=== PATIENT | female | born 1975 | race Caucasian/White ===

== ENCOUNTER 2020-02-24 13:03 | Emergency (ER) | payer MEDICARE, SELFPAY ==
--- NOTE | ~2020-02-24 | CT_ITS ---
EXAMINATION: CT abdomen pelvis w con DATE: 02/24/2020 16:34 INDICATION: Vomiting and severe abdominal pain TECHNIQUE: Computed tomography (CT) of the abdomen and pelvis was performed with 100 cc Omnipaque 350 intravenous contrast. The dose-length product was 222.97 mGy-cm. Automated exposure control and iter ative reconstruction technique were employed. COMPARISON: None. FINDINGS: Lung bases are unremarkable. No significant pleural or pericardial effusion. There is ather osclerosis of the aorta. No lymphadenopathy. The liver, spleen, adrenal glands are unremarkable. There is pancreatic atrophy. There is a vascular exophytic right renal mass measuring 1.4 cm, compatible with renal cell carcinoma until proven otherw ise. There are probable nonobstructing renal stones. There is a transplanted right kidney. Nonobstruc tive bowel gas pattern. Bladder is unremarkable. No abnormal pelvic masses or fluid collections. No f ree air or free fluid. No lymphadenopathy. No osteolytic or osteoblastic lesions. IMPRESSION: 1. Exophytic 1.4 cm right renal mass, compatible with renal cell carcinoma until proven otherwise. 2: Probable nonobstructing bilateral nephrolithiasis. 3: Bilateral lovelock renal atrophy. Transplanted right lower abdominal kidney. Reviewed, dictated and finalized at location [facility]. IMPRESSION: 1. Exophytic 1.4 cm right renal mass, compatible with renal cell carcinoma unti l proven otherwise. 2: Probable nonobstructing bilateral nephrolithiasis. 3: Bilateral lovelock renal atrophy. Transplanted right lower abdominal kidney.
[2020-02-24 13:06] VITALS: BP 162/90; PULSE 90; RESP 18; TEMP 36.5; O2SAT 100
--- NOTE | 2020-02-24 13:45 | ED.NAVMDI ---
HPI - Nausea/Vomiting/Diarrhea General Chief complaint: Nausea/Vomiting/Diarrhea Stated complaint: n/v/d Time Seen by Provider: 02/24/20 13:24 History of Present Illness HPI Narrative: Patient presents with nausea vomiting diarrhea and abdominal pain. She says abdominal pain is 10 out of 10. The pain goes to her back. She is a kidney transplant patient from last year she had a transplant at [facility]. She is thrown up at least 20 times, and had diarrhea at least 20 times. There is been no blood in the diarrhea. She denies fever, but she is actively chilling on the bedside commode. MD elicited complaint: nausea, vomiting, diarrhea and abdominal pain Pertinent past history: other (Kidney transplant) Onset (ago): hour(s) Associated nausea: Yes Associated abdominal pain: Yes Location of pain: diffuse Radiation: other (Back) Pain consistency: constant Severity: severe Relieving factors: none Associated symptoms: nausea/vomiting Related Data Allergies Allergy/AdvReac Type Severity Reaction Status Date / Time cyclobenzaprine Allergy Unknown Hives / Verified 02/24/20 15:02 Red Face tetracycline Allergy Unknown Nausea and Verified 02/24/20 15:02 Vomiting Review of Systems Review of Systems: Narrative: CONSTITUTIONAL: Denies fever, but has chills, and sweats. EYES: Denies visual changes, redness, or discharge. ENT: Denies rhinorrhea, congestion, sore throat, or otalgia. CARDIOVASCULAR: Denies chest pain, palpitations, or edema. RESPIRATORY: Denies cough or dyspnea. GASTROINTESTINAL: She has abdominal pain, nausea, vomiting, and diarrhea. GENITOURINARY: Denies dysuria or hematuria. SKIN: Denies rash or itching. MUSCULOSKELETAL: She had back pain, but not joint pain, or myalgia. NEUROLOGIC: Denies headache, numbness, or weakness. . All systems reviewed & are unremarkable except as noted in HPI and below PMFSH Surgical History Surgical History (Updated 02/24/20 @ 16:59 by Kristyn Lockett MD) History of kidney transplant Social History Social History Gender identity (if verbalized by the patient): Male Exam Narrative: Exam Narrative: GENERAL: Cachectic, chilling, very thin woman in moderate distress. HEAD: Normocephalic, atraumatic. EYES: PERRLA and EOMI. ENT: Nares clear, no rhinorrhea or epistaxis. Mucous membranes moist. NECK: Supple. CHEST: Clear to auscultation. No respiratory distress. HEART: Regular rate and rhythm. No murmur heard. Normal peripheral pulses. ABDOMEN: Soft, nontender, nondistended, normal active bowel sounds. EXTREMITIES: Normal range of motion. No edema. SKIN: Warm, dry, no rash. NEURO: No focal deficits. Alert and oriented x3. PSYCH: Very upset. Course Reevaluation(s) Reevaluation #1: Went back into check on the patient, she is feeling a little bit better the pain is down to 7 out of 10. She took the morphine well. Tried to take the morphine out of her allergy list but I could not do it may be the nurse can. We will order another dose of the morphine. She asked also for more nausea medicine, and I told her I am ordering a CAT scan for the severe pain. She was able to take her antirejection medicine this morning and did not throw it up. Date: 02/24/20 Time: 14:50 Reevaluation #2: CAT scan results came back with a possible renal cell carcinoma on 1 of the [place] kidneys. She needs to get this information back to her kidney transplant doctors and get a thorough evaluation at [facility]. Her symptoms of the vomiting and diarrhea and abdominal pain have totally subsided. She said she has had this twice before. She is feeling better now and she would like a prescription for the Reglan. Date: 02/24/20 Time: 17:01 Vital Signs Vital signs: Vital Signs Temperature 97.7 F 02/24/20 13:06 Pulse Rate 90 02/24/20 13:06 Respiratory Rate 18 02/24/20 13:06 Blood Pressure 162/90 H 02/24/20 13:06 Pulse Oximetry 100 02/24/20 13:06 Temperature 97.7 F 02/24/20 13:06 Pulse Rate 90
[2020-02-24] MEDS: SODIUM CHLORIDE 0.9% IV 1,000 ML 999 ML IV CONT ×2 (13:54→15:03)
[2020-02-24] MEDS: ONDANSETRON INJ 4 MG/2 ML VIAL IV PUSH (13:55)
[2020-02-24] MEDS: MORPHINE SULFATE 4 MG/ML INJ IV PUSH ×2 (14:07→15:03)
[2020-02-24] MEDS: METOCLOPRAMIDE HCL INJ 10 MG/2 ML VIAL IV PUSH (15:03)
[2020-02-24 15:16] LABS: Basophils Absolute Auto 0.1 K/mm3 (0.0-0.1); Basophils Percent Auto 0.7 % (0.2-1.2); Eosinophils Absolute Auto 0.1 K/mm3 (0-0.3); Eosinophils Percent Auto 0.4 % (0-4.4); Hematocrit 45.5 % (37.0-47.0); Hemoglobin 15.9 g/dL (12.0-15.0); Immature Granulocyte Absolute 0.09 K/mm3 (0.00-0.031); Immature Granulocyte Percent A 0.6 % (0-0.5); Lymphocytes Absolute Auto 0.96 K/mm3 (0.9-3.2); Lymphocytes Percent Auto 6.5 % (18.3-44.2); Mean Corpuscular HGB Conc 34.9 g/dl (32-36); Mean Corpuscular Hemoglobin 35.2 pg (26-34); Mean Corpuscular Volume 100.7 fl (80-100); Mean Platelet Volume 11.3 fl (7.4-10.4); Monocytes Absolute Auto 0.9 K/mm3 (0.1-0.6); Monocytes Percent Auto 6.3 % (2.6-8.5); Neutrophils Absolute Auto 12.6 K/mm3 (1.3-6.7); Neutrophils Percent Auto 85.5 % (45.5-73.1); Platelet Count Result 218 k/mm3 (150-375); Red Blood Count 4.52 M/mm3 (4.2-5.4); Red Cell Distribution Width 12.5 % (11.5-14.5); White Blood Count 14.7 K/mm3 (4.5-10.0)
[2020-02-24 15:27] LABS: Lactic Acid Reflex 1.2 mmol/L (0.7-2.1)
[2020-02-24 15:28] LABS: Alanine Aminotransferase 11 U/L (4-35); Albumin Level 4.6 g/dL (3.5-5.1); Alkaline Phosphatase 53 U/L (38-126); Anion Gap 13.4 mmol/L (7-16); Aspartate Amino Transferase 20 U/L (14-36); Blood Urea Nitrogen 17 mg/dL (7-17); Calcium 9.8 mg/dL (8.4-10.2); Carbon Dioxide 27 mmol/L (22-30); Chloride 101 mmol/L (98-107); Estimated CRCL calculation 64 ml/min; Estimated Glomerular Filt Rate > 60; Glucose 287 mg/dL (65-105); Potassium 3.4 mmol/L (3.4-5.0); Sodium 138 mmol/L (137-145)
[2020-02-24 15:48] LABS: Lipase < 10 U/L (23-300)
[2020-02-24 16:40] LABS: Add Urine Microscopic? YES; Appearance Urine Clear (Clear); Bacteria Urine Trace /hpf; Bilirubin Urine Negative (Negative); Blood Urine Negative (Negative); Color Urine Colorless (Yellow); Glucose Urine UA 3+ mg/dL (Negative); Ketones Urine Trace mg/dL (Negative); Leukocyte Esterase Ur Negative LEU/UL (Negative); Nitrate Urine Negative (Negative); Protein Urine Negative (Negative); RBC Urine 0-2 /hpf (0-2); Specific Grav Ur 1.009 (1.001-1.035); Squamous Epithelial Cell Urine Moderate /hpf (Few); Urobilinogen Urine Negative mg/dL (<2.0)
[2020-02-24 17:54] VITALS: BP 132/76; PULSE 95; RESP 18; O2SAT 100
== END 2020-02-24 17:55 | disposition home or self-care (01) ==
PROVIDERS: Emergency Provider Emergency Medicine; PCP Internal Medicine
DX: K52.9 Noninfective gastroenteritis and colitis, unspecified (principal); Z94.0 Kidney transplant status
CPT/HCPCS: 36415; 74177; 80053; 81001; 81025; 83605; 83690; 85025; 87040; 96361; 96374; 96375; 96376; 99284; J2270; J2405; J2765; J7030; Q9967

== ENCOUNTER 2020-02-26 08:56 | Emergency (ER) | payer MEDICARE, SELFPAY ==
[2020-02-26 09:01] VITALS: BP 159/96; PULSE 86; RESP 16; TEMP 35.9; O2SAT 100
[2020-02-26 09:11] LABS: Glucose Point of Care 238 (65-105)
--- NOTE | 2020-02-26 09:14 | ED.NAVMDI ---
HPI - Nausea/Vomiting/Diarrhea General Chief complaint: Nausea/Vomiting/Diarrhea Stated complaint: vomiting Time Seen by Provider: 02/26/20 09:11 History of Present Illness HPI Narrative: Nausea and vomiting since this morning. Associated with lower abdominal pain. The pain is severe and intermittent. No radiation. She was seen here [address] and labs were essentially unremarakable at that time. She was diagnosed with gastroenteritis and discharged with reglan. She has a h/o renal transplant. Related Data Allergies Allergy/AdvReac Type Severity Reaction Status Date / Time cyclobenzaprine Allergy Unknown Hives / Verified 02/26/20 09:19 Red Face tetracycline Allergy Unknown Nausea and Verified 02/26/20 09:19 Vomiting Review of Systems Review of Systems: All systems reviewed & are unremarkable except as noted in HPI and below Constitutional: Constitutional: Denies fever(s) Cardiovascular: Cardiovascular: Denies chest pain Respiratory: Respiratory: Denies dyspnea Gastrointestinal: Gastrointestinal: Reports abdominal pain, Reports diarrhea, Reports nausea and Reports vomiting Genitourinary: Genitourinary: Denies hematuria and Denies dysuria Neurologic: Denies dizziness and Denies weakness [facility] Past Medical History Medical History (Updated 02/26/20 @ 13:37 by Juan Antonio Acosta MD) Diabetes mellitus Surgical History Surgical History (Updated 02/26/20 @ 13:37 by Juan Antonio Acosta MD) History of kidney transplant Kidney transplant recipient Social History Social History Gender identity (if verbalized by the patient): Female Exam Const: General: healthy appearing, no acute distress and alert Orientation/consciousness: patient oriented x3 HENMT: Head: normal to inspection Neck: Neck: normal visual inspection and no lymphadenopathy Chest: Chest palpation & inspection: no tenderness Resp: Effort & Inspection: normal respiratory effort Auscultation: clear to auscultation bilaterally, no rales, no rhonchi and no wheezes Cardio: Jugular venous distension: no JVD Rate: regular rate Rhythm: regular rhythm Heart sounds: no murmurs GI: Inspection: non-distended GI Palp: Yes Soft to palpation and Yes Tenderness to palpation present (GI) (suprapubic) Skin: General skin exam: normal color Neuro: General: patient oriented x3 and moves all extremities Speech: normal speech Extrem: General: no edema Psych: Appearance: well kempt Affect: normal affect Course Vital Signs Vital signs: Vital Signs Temperature 35.9 C L 02/26/20 09:01 Pulse Rate 86 02/26/20 09:01 Respiratory Rate 16 02/26/20 09:01 Blood Pressure 159/96 H 02/26/20 09:01 Pulse Oximetry 100 02/26/20 09:01 Temperature 35.9 C L 02/26/20 09:01 Pulse Rate 90 02/26/20 11:35 Respiratory Rate 14 02/26/20 11:35 Blood Pressure 154/84 H 02/26/20 11:35 Pulse Oximetry 100 02/26/20 11:35 MDM - Nausea/Vomiting/Diarrhea MDM Narrative Medical decision making narrative: Labs essential normal. I d not believe that a repeat CT is warranted at this point. Renal function is good, no rejection. Medical Records Attestation: I reviewed the patient's medical records. Lab Data Attestation: I reviewed the patient's lab results. Result diagrams: 02/26/20 09:16 02/26/20 09:16 Labs: Lab Results 02/26/20 02/26/20 02/26/20 Range/Units 09:09 09:16 09:16 WBC 9.4 (4.5-10.0) K/mm3 RBC 4.45 (4.2-5.4) M/mm3 Hgb 15.9 H (12.0-15.0) g/dL Hct 45.3 (37.0-47.0) % MCV 101.8 H (80-100) fl MCH 35.7 H (26-34) pg MCHC 35.1 (32-36) g/dl RDW 12.5 (11.5-14.5) % Plt Count 220 (150-375) k/mm3 MPV 10.4 (7.4-10.4) fl Immature Gran % (Auto) 0.3 (0-0.5) % Neut % (Auto) 74.1 H (45.5-73.1) % Lymph % (Auto) 17.1 L (18.3-44.2) % [place] % (Auto) 6.8 (2.6-8.5) % Eos % (Auto) 1.3
[2020-02-26 09:25] LABS: Basophils Percent Auto 0.4 % (0.2-1.2); Eosinophils Absolute Auto 0.1 K/mm3 (0-0.3); Eosinophils Percent Auto 1.3 % (0-4.4); Hematocrit 45.3 % (37.0-47.0); Hemoglobin 15.9 g/dL (12.0-15.0); Immature Granulocyte Absolute 0.03 K/mm3 (0.00-0.031); Immature Granulocyte Percent A 0.3 % (0-0.5); Lymphocytes Percent Auto 17.1 % (18.3-44.2); Mean Corpuscular HGB Conc 35.1 g/dl (32-36); Mean Corpuscular Hemoglobin 35.7 pg (26-34); Mean Corpuscular Volume 101.8 fl (80-100); Mean Platelet Volume 10.4 fl (7.4-10.4); Monocytes Absolute Auto 0.6 K/mm3 (0.1-0.6); Monocytes Percent Auto 6.8 % (2.6-8.5); Neutrophils Percent Auto 74.1 % (45.5-73.1); Platelet Count Result 220 k/mm3 (150-375); Red Blood Count 4.45 M/mm3 (4.2-5.4); Red Cell Distribution Width 12.5 % (11.5-14.5); White Blood Count 9.4 K/mm3 (4.5-10.0)
[2020-02-26 09:29] VITALS: BP 195/83; PULSE 86; RESP 17; O2SAT 98
[2020-02-26] MEDS: ONDANSETRON INJ 4 MG/2 ML VIAL IV PUSH (09:33)
[2020-02-26] MEDS: SODIUM CHLORIDE 0.9% IV 2,000 ML 999 ML IV CONT (09:33)
[2020-02-26 09:35] LABS: Alanine Aminotransferase 10 U/L (4-35); Albumin Level 4.8 g/dL (3.5-5.1); Alkaline Phosphatase 56 U/L (38-126); Anion Gap 14.2 mmol/L (7-16); Aspartate Amino Transferase 21 U/L (14-36); Bilirubin,Total 0.7 mg/dL (0.2-1.3); Blood Urea Nitrogen 11 mg/dL (7-17); Calcium 9.8 mg/dL (8.4-10.2); Carbon Dioxide 28 mmol/L (22-30); Chloride 97 mmol/L (98-107); Estimated CRCL calculation 51 ml/min; Estimated Glomerular Filt Rate > 60; Glucose 235 mg/dL (65-105); Potassium 3.2 mmol/L (3.4-5.0); Sodium 136 mmol/L (137-145)
[2020-02-26 09:39] LABS: Lipase < 10 U/L (23-300)
[2020-02-26 09:52] LABS: Beta HCG Quantitative < 2.39 mIU/ML
[2020-02-26] MEDS: METOCLOPRAMIDE HCL INJ 10 MG/2 ML VIAL IV PUSH (10:03)
--- NOTE | 2020-02-26 10:04 | PC.NURSE ---
EDP aware pt requesting pain medication, states last time here was given morphine, and it helped alot , no new orders at this time.
[2020-02-26 10:05] VITALS: BP 161/107; PULSE 104; RESP 21; O2SAT 100
[2020-02-26 10:12] LABS: Add Urine Microscopic? YES; Appearance Urine Clear (Clear); Bilirubin Urine Negative (Negative); Blood Urine Negative (Negative); Color Urine Straw (Yellow); Glucose Urine UA 3+ mg/dL (Negative); Ketones Urine Trace mg/dL (Negative); Leukocyte Esterase Ur Negative LEU/UL (Negative); Nitrate Urine Negative (Negative); Protein Urine Negative (Negative); RBC Urine 0-2 /hpf (0-2); Specific Grav Ur 1.012 (1.001-1.035); Squamous Epithelial Cell Urine Occasional /hpf (Few); Urobilinogen Urine Negative mg/dL (<2.0)
[2020-02-26] MEDS: DICYCLOMINE HCL INJ 20 MG/2 ML VIAL IM (10:57)
[2020-02-26] MEDS: HALOPERIDOL LACTATE 5 MG/ML VIAL IV PUSH (11:30)
[2020-02-26 11:35] VITALS: BP 154/84; PULSE 90; RESP 14; O2SAT 100
== END 2020-02-26 12:20 | disposition home or self-care (01) ==
PROVIDERS: Emergency Provider Emergency Medicine; PCP Internal Medicine
DX: R11.2 Nausea with vomiting, unspecified (principal); Z94.0 Kidney transplant status; E11.9 Type 2 diabetes mellitus without complications
CPT/HCPCS: 36415; 80053; 81001; 82948; 83690; 84702; 85025; 96361; 96372; 96374; 96375; 99284; J0500; J1630; J2405; J2765; J7030

== ENCOUNTER 2020-04-15 11:51 | Emergency (ER) | payer MEDICARE, SELFPAY ==
[2020-04-15 11:59] VITALS: BP 195/96; PULSE 88; RESP 18; TEMP 36.9; O2SAT 100
[2020-04-15 12:38] LABS: Basophils Absolute Auto 0.1 K/mm3 (0.0-0.1); Basophils Percent Auto 0.7 % (0.2-1.2); Eosinophils Absolute Auto 0.1 K/mm3 (0-0.3); Eosinophils Percent Auto 1.3 % (0-4.4); Hematocrit 41.9 % (37.0-47.0); Hemoglobin 14.1 g/dL (12.0-15.0); Immature Granulocyte Absolute 0.07 K/mm3 (0.00-0.031); Immature Granulocyte Percent A 0.7 % (0-0.5); Lymphocytes Absolute Auto 0.81 K/mm3 (0.9-3.2); Lymphocytes Percent Auto 7.6 % (18.3-44.2); Mean Corpuscular HGB Conc 33.7 g/dl (32-36); Mean Corpuscular Hemoglobin 34.1 pg (26-34); Mean Corpuscular Volume 101.2 fl (80-100); Mean Platelet Volume 10.1 fl (7.4-10.4); Monocytes Absolute Auto 0.7 K/mm3 (0.1-0.6); Monocytes Percent Auto 6.6 % (2.6-8.5); Neutrophils Absolute Auto 8.9 K/mm3 (1.3-6.7); Neutrophils Percent Auto 83.1 % (45.5-73.1); Platelet Count Result 338 k/mm3 (150-375); Red Blood Count 4.14 M/mm3 (4.2-5.4); Red Cell Distribution Width 12.2 % (11.5-14.5); White Blood Count 10.7 K/mm3 (4.5-10.0)
[2020-04-15 12:43] LABS: Add Urine Microscopic? YES; Amorphous Sediment Urine Moderate; Appearance Urine Cloudy (Clear); Bilirubin Urine Negative (Negative); Blood Urine Negative (Negative); Color Urine Yellow (Yellow); Glucose Urine UA 3+ mg/dL (Negative); Ketones Urine Negative (Negative); Leukocyte Esterase Ur Negative LEU/UL (Negative); Nitrate Urine Negative (Negative); Protein Urine Negative (Negative); Squamous Epithelial Cell Urine Rare /hpf (Few); Urobilinogen Urine Negative mg/dL (<2.0)
[2020-04-15 12:52] LABS: Alanine Aminotransferase 9 U/L (4-35); Albumin Level 4.4 g/dL (3.5-5.1); Alkaline Phosphatase 54 U/L (38-126); Anion Gap 8 mmol/L (8-16); Aspartate Amino Transferase 19 U/L (14-36); Bilirubin,Total 0.6 mg/dL (0.2-1.3); Blood Urea Nitrogen 13 mg/dL (7-17); Calcium 9.6 mg/dL (8.4-10.2); Carbon Dioxide 33 mmol/L (22-30); Chloride 95 mmol/L (98-107); Estimated CRCL calculation 66 ml/min; Estimated Glomerular Filt Rate > 60; Glucose 274 mg/dL (65-105); Potassium 3.6 mmol/L (3.4-5.0); Sodium 136 mmol/L (137-145)
[2020-04-15 12:54] LABS: Lipase < 10 U/L (23-300)
--- NOTE | 2020-04-15 12:56 | ED.NAVMDI ---
HPI - Nausea/Vomiting/Diarrhea General Chief complaint: Nausea/Vomiting/Diarrhea Stated complaint: vomiting/high blood pressure Time Seen by Provider: 04/15/20 12:28 Source: patient and family Limitations: no limitations History of Present Illness HPI Narrative: 45-year-old female She had a kidney transplant at [facility] about a year ago She had a robotic nephrectomy at [facility] about a week ago She has a history of diabetes and gastroparesis She takes omeprazole and Reglan and gabapentin for gastroparesis and neuropathy She has a medical marijuana card and partakes about twice a week Today she started having nausea and vomiting nonbloody material similar to episodes which she has experienced previously There was also one episode of diarrhea which was nonbloody Her blood sugar was approximately 213, she took her long-acting insulin last night but did not take any short acting insulin today She likewise notes that she has been unable to hold down her meds including her antirejection meds, and, the tramadol which has been making her postoperative pain tolerable Lastly she has had a little bit of oozing from 1 of her port sites MD elicited complaint: nausea, vomiting and diarrhea Pertinent past history: abdominal surgery Onset (ago): hour(s) Description of diarrhea: watery Location of pain: diffuse Quality: aching Relieving factors: none Related Data Allergies Allergy/AdvReac Type Severity Reaction Status Date / Time cyclobenzaprine Allergy Unknown Hives / Verified 04/15/20 13:29 Red Face tetracycline Allergy Unknown Nausea and Verified 04/15/20 13:29 Vomiting acetaminophen [From Tylenol] Allergy Nausea and Verified 04/15/20 13:29 Vomiting Review of Systems Review of Systems: All systems reviewed & are unremarkable except as noted in HPI and below Constitutional: Constitutional: Denies chills, Reports fatigue, Denies fever(s), Denies headache(s) and Denies night sweats Eyes: Eyes: Denies change in vision, Denies loss of vision and Denies other visual disturbances ENT: Denies headache(s), Denies hoarseness, Denies nasal congestion and Denies sore throat Cardiovascular: Cardiovascular: Denies chest pain, Denies leg edema, Denies palpitations and Denies dyspnea Respiratory: Respiratory: Denies cough, Denies dyspnea and Denies wheezing Gastrointestinal: Gastrointestinal: Reports abdominal pain, Reports diarrhea, Reports nausea and Reports vomiting Genitourinary: Genitourinary: Denies hematuria, Denies urinary frequency, Denies nocturia and Denies dysuria Musculoskeletal: Musculoskeletal: Denies abnormal gait, Denies deformity, Denies joint swelling, Reports muscle cramps, Denies muscle weakness and Denies numbness Integumentary/Breasts: Skin/Breast: Denies rash, Denies unusual bruising and Denies wounds Neurologic: Denies abnormal gait, Denies headache(s), Denies focal weakness, Denies loss of vision and Denies numbness Psychiatric: Psychiatric: Reports no additional psychiatric complaints Endocrine: Endocrine: Denies fatigue and Denies palpitations Hematologic/Lymphatic: Hematologic/Lymphatic: Denies easy bleeding and Denies easy bruising Allergic/Immunologic: Allergic/Immunologic: Denies wheezing PMFSH Past Medical History Medical History (Updated 04/15/20 @ 15:53 by Hill Kraft MD) Diabetes mellitus Surgical History Surgical History (Updated 04/15/20 @ 15:53 by Hill Kraft MD) History of kidney transplant Kidney transplant recipient Social History Social History Gender identity (if verbalized by the patient): Female Sexual Orientation (if Verbalized by the Patient): Straight or Heterosexual Exam Const: General: well developed and ill appearing Orientation/consciousness: patient oriented x3 (alert) and Other orientation findings (Alert) Limitations: no limitations HENMT: Head: normocephalic and atraumatic Ears
[2020-04-15] MEDS: METOCLOPRAMIDE HCL INJ 10 MG/2 ML VIAL IV PUSH (13:22)
[2020-04-15] MEDS: LACTATED RINGERS 1,000 ML 999 ML IV CONT (13:22)
[2020-04-15] MEDS: diphenhydrAMINE HCl INJ 50 MG/ML VIAL IV PUSH (13:24)
[2020-04-15 13:32] LABS: Alveolar/Arterial O2 Gradient 14.7 mmHg; Base Excess ABG 3.3 mEq/l (+/-2.0); Carboxyhemoglobin 3.8 % THb (0-2.0); Fractional Inspired Oxygen 21 %; HCO3 ABG 26.6 mEq/l (22.0-26.0); Methemoglobin ABG 0.3 %THb (0-1.5); Oxygen Content ABG 17.1 %vol (16.0-22.0); Oxygen Saturation ABG 97.5 % (95.0-100.0); Oxyhemoglobin 92.3 % THb (90.0-100.0); PCO2 ABG 36.3 mmHg (35.0-45.0); PO2 ABG 91.6 mmHg (80.0-100.0); PO2 FiO2 Ratio Arterial Blood 4.36 %; Reduced Hemoglobin 3.6 %THb (0-5.0); Total Hemoglobin 13.1 g/dL (12.0-18.0); pH ABG 7.483 (7.350-7.450)
[2020-04-15 13:33] LABS: Device ROOM AIR; Site Drawn LEFT BRACHIAL
[2020-04-15] MEDS: HYDROCORTISONE SODIUM SUCCINATE 100 MG/2 ML VIAL IV PUSH (14:31)
[2020-04-15] MEDS: oxyCODONE HCL (*CRX) 5 MG TAB IR PO (14:33)
--- NOTE | 2020-04-15 14:36 | PC.NURSE ---
This RN into room to give pt insulin. Pt refused
[2020-04-15 14:42] VITALS: BP 206/105; PULSE 81; RESP 20; TEMP 37.1; O2SAT 100
[2020-04-15 15:20] LABS: Valproic Acid 49.6 ug/mL (50-120)
[2020-04-15] MEDS: amLODIPine BESYLATE 5 MG TABLET 10 MG PO (16:22)
[2020-04-15] MEDS: BISMUTH SUBSALICYLATE 262 MG CHEWABLE TABLET 524 MG PO (16:23)
--- NOTE | 2020-04-15 16:40 | PC.NURSE ---
Pt declined blood draw for Tacrolimus. Dr. Kraft informed of this.
--- NOTE | 2020-04-15 16:43 | PC.NURSE ---
Pt refused to look at or sign discharge paperwork. Pt states I am blind as she is walking to bathroom. This RN gave instructions to and paperwork.
== END 2020-04-15 16:43 | disposition home or self-care (01) ==
PROVIDERS: Emergency Provider Emergency Medicine; PCP Internal Medicine
DX: R11.2 Nausea with vomiting, unspecified (principal); R19.7 Diarrhea, unspecified; I10 Essential (primary) hypertension; Z94.0 Kidney transplant status; E11.43 Type 2 diabetes mellitus with diabetic autonomic (poly)neuropathy; K31.84 Gastroparesis; E11.40 Type 2 diabetes mellitus with diabetic neuropathy, unspecified; Z79.4 Long term (current) use of insulin
CPT/HCPCS: 36415; 36600; 80053; 80164; 81001; 82375; 82533; 82805; 83050; 83690; 85025; 96361; 96374; 96375; 99284; A9270; J1200; J1720; J2765; J7120

== ENCOUNTER 2023-12-20 15:38 | Emergency (ER) | payer MEDICARE, SELFPAY ==
[2023-12-20] VITALS (8 sets, daily range): BP systolic 103–180; BP diastolic 65–94; PULSE 83–102; RESP 13–18; TEMP 36.3; O2SAT 97–100
[2023-12-20 16:46] LABS: Basophils Absolute Auto 0.1 K/mm3 (0.0-0.1); Basophils Percent Auto 0.5 % (0.2-1.2); Eosinophils Percent Auto 0.4 % (0-4.4); Hematocrit 49.7 % (37.0-47.0); Hemoglobin 16.6 g/dL (12.0-15.0); Immature Granulocyte Absolute 0.05 K/mm3 (0.00-0.031); Immature Granulocyte Percent A 0.5 % (0-0.5); Lymphocytes Absolute Auto 1.38 K/mm3 (0.9-3.2); Lymphocytes Percent Auto 13.9 % (18.3-44.2); Mean Corpuscular HGB Conc 33.4 g/dl (32-36); Mean Corpuscular Hemoglobin 32.7 pg (26-34); Mean Corpuscular Volume 97.8 fl (80-100); Mean Platelet Volume 10.2 fl (7.4-10.4); Monocytes Absolute Auto 0.5 K/mm3 (0.1-0.6); Monocytes Percent Auto 5.1 % (2.6-8.5); Neutrophils Absolute Auto 7.9 K/mm3 (1.3-6.7); Neutrophils Percent Auto 79.6 % (45.5-73.1); Platelet Count Result 182 k/mm3 (150-375); Red Blood Count 5.08 M/mm3 (4.2-5.4); Red Cell Distribution Width 13.1 % (11.5-14.5); White Blood Count 9.9 K/mm3 (4.5-10.0)
[2023-12-20 16:57] LABS: Alanine Aminotransferase 12 U/L (6-35); Alkaline Phosphatase 71 U/L (38-126); Anion Gap 18 mmol/L (4-12); Aspartate Amino Transferase 27 U/L (14-36); Bilirubin,Total 1.1 mg/dL (0.2-1.3); Blood Urea Nitrogen 15 mg/dL (7-17); Calcium 9.6 mg/dL (8.4-10.2); Carbon Dioxide 22 mmol/L (22-30); Chloride 98 mmol/L (98-107); Estimated CRCL calculation 59 ml/min; Estimated Glomerular Filt Rate > 60; Glucose 224 mg/dL (65-110); Potassium 3.5 mmol/L (3.4-5.0); Sodium 138 mmol/L (137-145)
[2023-12-20 17:19] LABS: Lipase < 10 U/L (23-300)
[2023-12-20] MEDS: HYDROmorphone HCL INJ (*CRX) 1 MG/ML SYR IV PUSH (17:26)
[2023-12-20] MEDS: METOCLOPRAMIDE HCL INJ 10 MG/2 ML VIAL 5 MG IV PUSH (17:26)
[2023-12-20] MEDS: SODIUM CHLORIDE 0.9% IV 1,000 ML 999 ML IV CONT ×2 (17:27→18:21)
--- NOTE | 2023-12-20 18:26 | ED.GENADULT ---
HPI - General Adult General Chief complaint: Nausea/Vomiting/Diarrhea <Dorian Zamora MD - Last Filed: 12/20/23 18:33> Stated complaint: n/v/ <Dorian Zamora MD - Last Filed: 12/20/23 18:33> Time Seen by Provider: 12/20/23 16:43 <Dorian Zamora MD - Last Filed: 12/20/23 18:33> Source: patient <Dorian Zamora MD - Last Filed: 12/20/23 18:33> Mode of arrival: ambulatory <MD Leila White Last Filed: 12/20/23 18:33> Limitations: no limitations <MD Leila White Last Filed: 12/20/23 18:33> History of Present Illness HPI narrative: 48-year-old with a history of diabetes, diabetic gastroparesis, status post renal transplant here with the complaints of nausea, vomiting, lower abdominal pain. Patient states that she has these episodes quite often and she usually gets droperidol and Dilaudid which takes care of the pain and nausea. She denies any fever or chills. She states that she is unable to keep any fluids down. <Dorian Zamora MD - Last Filed: 12/20/23 18:33> Onset (ago): day(s) (1) <Dorian Zamora MD - Last Filed: 12/20/23 18:33> Location: abdomen <MD Leila White Last Filed: 12/20/23 18:33> Severity: moderate <MD Leila White Last Filed: 12/20/23 18:33> Quality: aching <MD Leila White Last Filed: 12/20/23 18:33> Pain Consistency: constant <MD Leila White Last Filed: 12/20/23 18:33> Relieving factors: none <MD Leila White Last Filed: 12/20/23 18:33> Exacerbating factors: none <MD Leila White Last Filed: 12/20/23 18:33> Related Data Home medications: Home Medications Medication Instructions Recorded Confirmed alprazolam 0.25 mg tablet (Xanax) 0.25 mg PO BID 08/30/20 aspirin 81 mg tablet,delayed 81 mg PO DAILY 08/30/20 release (Adult Aspirin Regimen) azathioprine 50 mg tablet 50 mg PO DAILY 08/30/20 metoclopramide HCl 10 mg tablet 10 mg PO Q6H PRN 08/30/20 (Reglan) omeprazole 20 mg capsule,delayed 20 mg PO DAILY 08/30/20 release prednisolone 5 mg tablet 5 mg PO DAILY 08/30/20 tacrolimus 1 mg tablet,extended 1 mg PO DAILY 08/30/20 release 24 hr (Envarsus XR) tramadol 50 mg tablet (Ultram) 50 mg PO Q6H PRN 08/30/20 zolpidem 10 mg tablet (Ambien) 10 mg PO ONCE 08/30/20 <Dorian Zamora MD - Last Filed: 12/20/23 18:33> Allergies/adverse reactions: Allergies Allergy/AdvReac Type Severity Reaction Status Date / Time cyclobenzaprine Allergy Unknown Hives / Verified 10/04/20 13:56 Red Face tetracycline Allergy Unknown Nausea and Verified 10/04/20 13:56 Vomiting acetaminophen [From Tylenol] Allergy Nausea and Verified 10/04/20 13:56 Vomiting morphine AdvReac Itching Verified 12/20/23 15:56 <Dorian Zamora MD - Last Filed: 12/20/23 18:33> Review of Systems Review of Systems: All systems reviewed & are unremarkable except as noted in HPI and below <Dorian Zamora MD - Last Filed: 12/20/23 18:33> Constitutional: Constitutional: Reports no additional constitutional complaints <Dorian Zamora MD - Last Filed: 12/20/23 18:33> Eyes: Eyes: Reports no additional eye complaints <Dorian Zamora MD - Last Filed: 12/20/23 18:33> ENT: Reports system reviewed and no additional complaints, except as documented <Dorian Zamora MD - Last Filed: 12/20/23 18:33> Cardiovascular: Cardiovascular: Reports no additional cardiovascular complaints <Dorian Zamora MD - Last Filed: 12/20/23 18:33> Respiratory: Respiratory: Reports no additional respiratory complaints <Dorian Zamora MD - Last Filed: 12/20/23 18:33> Gastrointestinal: Gastrointestinal: Reports as per HPI <Dorian Zamora MD - Last Filed: 12/20/23 18:33> Musculoskeletal: Musculoskeletal: Reports no additional musculoskeletal complaints <Dorian Zamora MD - Last Filed: 12/20/23 18:33> Neurologic: Reports system reviewed and no additional complaints, except as documented <Dorian
[2023-12-20 19:27] LABS: Anion Gap 12 mmol/L (4-12); Blood Urea Nitrogen 13 mg/dL (7-17); Carbon Dioxide 19 mmol/L (22-30); Chloride 105 mmol/L (98-107); Estimated CRCL calculation 76 ml/min; Estimated Glomerular Filt Rate > 60; Glucose 171 mg/dL (65-110); Potassium 3.6 mmol/L (3.4-5.0); Sodium 136 mmol/L (137-145)
[2023-12-20 19:50] LABS: Appearance Urine Clear (Clear); Bacteria Urine Rare /hpf; Bilirubin Urine Negative (Negative); Blood Urine 2+ (Negative); Color Urine Yellow (Yellow); Glucose Urine UA 3+ mg/dL (Negative); Ketones Urine 4+ mg/dL (Negative); Leukocyte Esterase Ur Negative LEU/UL (Negative); Nitrate Urine Negative (Negative); Non Pathogenic Casts 0-2; Protein Urine 1+ mg/dL (Negative); Specific Grav Ur 1.019 (1.001-1.035); Squamous Epithelial Cell Urine None Seen /hpf (Few); Urobilinogen Urine 0.2 mg/dL (<2.0); WBC Urine 0-5 /hpf (0-3); pH Urine 5.5 (5.0-9.0)
[2023-12-20 19:53] LABS: Add Urine Microscopic? YES
[2023-12-20] MEDS: HALOPERIDOL LACTATE 5 MG/ML VIAL 2.5 MG IM (20:05)
== END 2023-12-20 21:00 | disposition home or self-care (01) ==
PROVIDERS: Family Medicine; Emergency Provider Emergency Medicine; PCP Internal Medicine
DX: R11.2 Nausea with vomiting, unspecified (principal); R10.84 Generalized abdominal pain; E11.43 Type 2 diabetes mellitus with diabetic autonomic (poly)neuropathy; K31.84 Gastroparesis; Z94.0 Kidney transplant status; Z79.82 Long term (current) use of aspirin
CPT/HCPCS: 36415; 80048; 80053; 81001; 83690; 85025; 96361; 96372; 96374; 96375; 99284; J1170; J1630; J2765; J7030

== ENCOUNTER 2023-12-21 10:50 | Emergency (ER) | payer MEDICARE, SELFPAY ==
[2023-12-21] VITALS (7 sets, daily range): BP systolic 144–184; BP diastolic 84–94; PULSE 89–116; RESP 11–21; TEMP 36.6; O2SAT 95–100
--- NOTE | ~2023-12-21 | CT_ITS ---
EXAMINATION: CT abdomen pelvis w con DATE: 12/21/2023 12:09 INDICATION: Generalized abdominal pain. Nausea and vomiting. TECHNIQUE: Computed tomography (CT) of the abdomen and pelvis was performed with 100 mL Omnipaque 350 intravenous contrast. Automated exposure control and iterative reconstruction technique were employe d. The dose-length product was 290.57 mGy-cm. COMPARISON: CT abdomen and pelvis 02/24/2020 FINDINGS: The visualized portions of the lung bases demonstrate mild atelectasis. No pleural effusion . The heart size is normal. No pericardial effusion. The liver, gallbladder, spleen, pancreas, adrena l glands, are normal. There are changes of right nephrectomy. There is moderate atrophy of [place] lef t kidney. There is calcified atherosclerosis of the aorta and many of the other arteries. There is a transplant kidney in right iliac fossa. There is focal atrophy of the inferior aspect of the transpla nt kidney. There is a 4.9 cm cyst in left ovary, likely a follicular cyst. There are no dilated loops of bowel. The appendix is not visualized. There are no pathologically enlarged lymph nodes. There is no free intraperitoneal fluid. There is mild thoracic and lumbar spondylosis. IMPRESSION: 1. 4.9 cm cyst in left ovary, likely a follicular cyst. Reviewed, dictated and finalized at location A.
[2023-12-21] MEDS: SODIUM CHLORIDE 0.9% IV 1,000 ML 999 ML IV CONT ×2 (11:24)
[2023-12-21 11:29] LABS: Basophils Absolute Auto 0.1 K/mm3 (0.0-0.1); Basophils Percent Auto 0.7 % (0.2-1.2); Eosinophils Absolute Auto 0.2 K/mm3 (0-0.3); Eosinophils Percent Auto 1.6 % (0-4.4); Hematocrit 47.3 % (37.0-47.0); Hemoglobin 16.2 g/dL (12.0-15.0); Immature Granulocyte Absolute 0.07 K/mm3 (0.00-0.031); Immature Granulocyte Percent A 0.6 % (0-0.5); Mean Corpuscular HGB Conc 34.2 g/dl (32-36); Mean Corpuscular Hemoglobin 33.5 pg (26-34); Mean Corpuscular Volume 97.9 fl (80-100); Mean Platelet Volume 10.2 fl (7.4-10.4); Monocytes Percent Auto 8.6 % (2.6-8.5); Neutrophils Absolute Auto 8.4 K/mm3 (1.3-6.7); Neutrophils Percent Auto 69.5 % (45.5-73.1); Platelet Count Result 178 k/mm3 (150-375); Red Blood Count 4.83 M/mm3 (4.2-5.4); Red Cell Distribution Width 13.2 % (11.5-14.5); White Blood Count 12.1 K/mm3 (4.5-10.0)
--- NOTE | 2023-12-21 11:35 | ED.ABDPAIN ---
HPI - Abdominal Pain General Chief Complaint: Abdominal Pain Stated Complaint: abdominial pain,NVD Time Seen by Provider: 12/21/23 11:12 History of Present Illness HPI narrative: Patient is a 48-year-old female who presents to the emergency department this morning complaining of generalized abdominal pain worse in the lower abdomen. Patient was seen at our facility yesterday for similar symptoms and was treated with Reglan and Dilaudid as patient is allergic to morphine. Patient states that her symptoms did resolve and she was also given some IV fluids and discharged. Patient states that today she started to have similar symptoms with nausea, vomiting, and diarrhea. Patient states that the diarrhea started today. She denies any fevers or chills at home and denies any additional symptoms or concerns at this time. Related Data Home Medications Medication Instructions Recorded Confirmed alprazolam 0.25 mg tablet (Xanax) 0.25 mg PO BID 08/30/20 aspirin 81 mg tablet,delayed 81 mg PO DAILY 08/30/20 release (Adult Aspirin Regimen) azathioprine 50 mg tablet 50 mg PO DAILY 08/30/20 metoclopramide HCl 10 mg tablet 10 mg PO Q6H PRN 08/30/20 (Reglan) omeprazole 20 mg capsule,delayed 20 mg PO DAILY 08/30/20 release prednisolone 5 mg tablet 5 mg PO DAILY 08/30/20 tacrolimus 1 mg tablet,extended 1 mg PO DAILY 08/30/20 release 24 hr (Envarsus XR) tramadol 50 mg tablet (Ultram) 50 mg PO Q6H PRN 08/30/20 zolpidem 10 mg tablet (Ambien) 10 mg PO ONCE 08/30/20 Allergies Allergy/AdvReac Type Severity Reaction Status Date / Time cyclobenzaprine Allergy Unknown Hives / Verified 12/21/23 11:12 Red Face tetracycline Allergy Unknown Nausea and Verified 12/21/23 11:12 Vomiting acetaminophen [From Tylenol] Allergy Nausea and Verified 12/21/23 11:12 Vomiting morphine AdvReac Itching Verified 12/21/23 11:12 Review of Systems Review of Systems: All systems are reviewed and are negative unless stated otherwise in the HPI. [facility] Past Medical History Medical History Diabetes mellitus Surgical History Surgical History History of kidney transplant Kidney transplant recipient Social History Social History Smoking status: Never smoker Second hand tobacco smoke exposure: No Alcohol intake: never Substance use: never Substance use type: does not use Gender identity (if verbalized by the patient): Female Sexual Orientation (if Verbalized by the Patient): Straight or Heterosexual Exam Narrative: General: Alert, awake, afebrile, in no acute distress. HEENT: PERRL, no rhinorrhea, no post nasal drip, oropharynx clear. Cardiovascular: Regular rate and rhythm, no murmurs, rubs or gallops, no peripheral edema. Respiratory: Clear to auscultation bilaterally, no tachypnea, no wheezing, no rhonchi, no rubs, no respiratory distress. Abdomen: Soft, tenderness to palpation over the suprapubic and bilateral lower quadrants, nondistended, no rebound, no guarding, no peritoneal signs. Musculoskeletal: No joint swelling or deformity, normal muscle tone. Skin: No rashes or petechia, no signs of infection. Neurological: Alert and oriented to person, place, and time. Follows all commands. No focal deficits, speech is clear and fluent. Course Vital Signs Vital signs: Vital Signs Temperature 97.9 F 12/21/23 10:59 Pulse Rate 110 H 12/21/23 10:59 Respiratory Rate 16 12/21/23 10:59 Blood Pressure 184/90 H 12/21/23 10:59 Pulse Oximetry 98 12/21/23 10:59 Temperature 97.9 F 12/21/23 10:59 Pulse Rate 104 H 12/21/23 13:17 Respiratory Rate 18 12/21/23 13:17 Blood Pressure 170/94 H 12/21/23 13:17 Pulse Oximetry 95 12/21/23 13:17 MDM - Abdominal Pain MDM Narrative Medical decision making narrative: The pat
[2023-12-21 11:39] LABS: Alanine Aminotransferase 11 U/L (6-35); Albumin Level 4.6 g/dL (3.5-5.1); Alkaline Phosphatase 64 U/L (38-126); Anion Gap 11 mmol/L (4-12); Aspartate Amino Transferase 25 U/L (14-36); Bilirubin,Total 0.9 mg/dL (0.2-1.3); Blood Urea Nitrogen 10 mg/dL (7-17); Calcium 9.1 mg/dL (8.4-10.2); Carbon Dioxide 24 mmol/L (22-30); Chloride 102 mmol/L (98-107); Estimated CRCL calculation 66 ml/min; Estimated Glomerular Filt Rate > 60; Glucose 247 mg/dL (65-110); Lipase 13 U/L (23-300); Potassium 3.4 mmol/L (3.4-5.0); Sodium 137 mmol/L (137-145)
[2023-12-21] MEDS: HYDROmorphone HCL INJ (*CRX) 1 MG/ML SYR 0.5 MG IV PUSH ×2 (11:51→13:14)
[2023-12-21] MEDS: ONDANSETRON INJ 4 MG/2 ML VIAL IV PUSH (11:51)
[2023-12-21 12:34] LABS: Influenza A QL RT-PCR Negative (Negative); Influenza B QL RT-PCR Negative (Negative); RSV RNA, RT-PCR Negative (Negative); SARS-CoV-2 RNA PCR Negative (Negative)
[2023-12-21] MEDS: METOCLOPRAMIDE HCL INJ 10 MG/2 ML VIAL IV PUSH (13:14)
== END 2023-12-21 14:32 | disposition home or self-care (01) ==
PROVIDERS: Student in an Organized Health Care Education/Training Program; Emergency Provider Emergency Medicine; PCP Internal Medicine
DX: E11.43 Type 2 diabetes mellitus with diabetic autonomic (poly)neuropathy (principal); K31.84 Gastroparesis; R11.2 Nausea with vomiting, unspecified; R19.7 Diarrhea, unspecified; Z20.822 Contact with and (suspected) exposure to COVID-19; Z94.0 Kidney transplant status; Z79.82 Long term (current) use of aspirin; Z79.899 Other long term (current) drug therapy
CPT/HCPCS: 36415; 74177; 80053; 82248; 83690; 85025; 87637; 96361; 96374; 96375; 96376; 99284; J1170; J2405; J2765; J7030; Q9967

== ENCOUNTER 2023-12-22 11:28 | Observation (INO) | payer MEDICARE, SELFPAY ==
[2023-12-22 11:46] VITALS: BP 169/93; PULSE 111; RESP 19; TEMP 36.7; O2SAT 98
[2023-12-22 12:01] LABS: Basophils Absolute Auto 0.1 K/mm3 (0.0-0.1); Basophils Percent Auto 0.8 % (0.2-1.2); Eosinophils Absolute Auto 0.1 K/mm3 (0-0.3); Eosinophils Percent Auto 0.8 % (0-4.4); Hematocrit 50.2 % (37.0-47.0); Hemoglobin 17.1 g/dL (12.0-15.0); Immature Granulocyte Absolute 0.05 K/mm3 (0.00-0.031); Immature Granulocyte Percent A 0.4 % (0-0.5); Lymphocytes Absolute Auto 2.14 K/mm3 (0.9-3.2); Lymphocytes Percent Auto 18.8 % (18.3-44.2); Mean Corpuscular HGB Conc 34.1 g/dl (32-36); Mean Corpuscular Hemoglobin 32.8 pg (26-34); Mean Corpuscular Volume 96.4 fl (80-100); Mean Platelet Volume 9.6 fl (7.4-10.4); Monocytes Absolute Auto 0.8 K/mm3 (0.1-0.6); Monocytes Percent Auto 7.3 % (2.6-8.5); Neutrophils Absolute Auto 8.2 K/mm3 (1.3-6.7); Neutrophils Percent Auto 71.9 % (45.5-73.1); Platelet Count Result 188 k/mm3 (150-375); Red Blood Count 5.21 M/mm3 (4.2-5.4); Red Cell Distribution Width 13.1 % (11.5-14.5); White Blood Count 11.4 K/mm3 (4.5-10.0)
[2023-12-22 12:11] LABS: Alanine Aminotransferase 12 U/L (6-35); Albumin Level 4.7 g/dL (3.5-5.1); Alkaline Phosphatase 65 U/L (38-126); Anion Gap 11 mmol/L (4-12); Aspartate Amino Transferase 27 U/L (14-36); Bilirubin,Total 0.9 mg/dL (0.2-1.3); Blood Urea Nitrogen 8 mg/dL (7-17); Calcium 9.1 mg/dL (8.4-10.2); Carbon Dioxide 25 mmol/L (22-30); Chloride 101 mmol/L (98-107); Estimated CRCL calculation 66 ml/min; Estimated Glomerular Filt Rate > 60; Glucose 270 mg/dL (65-110); Lipase 12 U/L (23-300); Potassium 3.5 mmol/L (3.4-5.0); Sodium 137 mmol/L (137-145)
[2023-12-22 12:16] LABS: Appearance Urine Clear (Clear); Bacteria Urine None Seen /hpf; Bilirubin Urine Negative (Negative); Blood Urine 1+ (Negative); Color Urine Yellow (Yellow); Glucose Urine UA 3+ mg/dL (Negative); Ketones Urine 2+ mg/dL (Negative); Leukocyte Esterase Ur Negative LEU/UL (Negative); Nitrate Urine Negative (Negative); Non Pathogenic Casts 0-2; Protein Urine 1+ mg/dL (Negative); Specific Grav Ur 1.015 (1.001-1.035); Squamous Epithelial Cell Urine None Seen /hpf (Few); Urobilinogen Urine 0.2 mg/dL (<2.0); WBC Urine 0-5 /hpf (0-3); pH Urine 6.5 (5.0-9.0)
[2023-12-22 12:21] LABS: Add Urine Microscopic? YES
--- NOTE | 2023-12-22 13:59 | ED.NAVMDI ---
HPI - Nausea/Vomiting/Diarrhea General Chief complaint: Nausea/Vomiting/Diarrhea Stated complaint: gastroparesis Time Seen by Provider: 12/22/23 11:52 History of Present Illness HPI Narrative: Patient is a 48-year-old female with history of diabetes, gastroparesis, recurrent urinary tract infections currently on multiple antibiotics here with nausea and vomiting and abdominal pain. She notes that this feels very similar to her prior episodes of gastroparesis. She notes that she was doing okay when she left yesterday and seems to do well overnight but worsens again in the morning. This morning she has thrown up several times however does not really have anything in her to throw up and is now just dry heaving. She denies any fever chills. She does have some associated diarrhea which is common for her with gastroparesis. Last upper endoscopy was performed at [facility] not too long ago per patient. She currently is following with the urology team locally here, saw nurse practitioner and is supposed to be on Macrobid. She has been vomiting up her antibiotics at home. She is prescribed Haldol at home for her gastroparesis however due to her excessive vomiting she has been unable to keep the Haldol down and has been vomiting up her medications. Related Data Home Medications Medication Instructions Recorded Confirmed alprazolam 0.25 mg tablet (Xanax) 0.25 mg PO BID 08/30/20 aspirin 81 mg tablet,delayed 81 mg PO DAILY 08/30/20 release (Adult Aspirin Regimen) azathioprine 50 mg tablet 50 mg PO DAILY 08/30/20 metoclopramide HCl 10 mg tablet 10 mg PO Q6H PRN 08/30/20 (Reglan) omeprazole 20 mg capsule,delayed 20 mg PO DAILY 08/30/20 release prednisolone 5 mg tablet 5 mg PO DAILY 08/30/20 tacrolimus 1 mg tablet,extended 1 mg PO DAILY 08/30/20 release 24 hr (Envarsus XR) tramadol 50 mg tablet (Ultram) 50 mg PO Q6H PRN 08/30/20 zolpidem 10 mg tablet (Ambien) 10 mg PO ONCE 08/30/20 Allergies Allergy/AdvReac Type Severity Reaction Status Date / Time cyclobenzaprine Allergy Unknown Hives / Verified 12/21/23 11:12 Red Face tetracycline Allergy Unknown Nausea and Verified 12/21/23 11:12 Vomiting acetaminophen [From Tylenol] Allergy Nausea and Verified 12/21/23 11:12 Vomiting morphine AdvReac Itching Verified 12/21/23 11:12 Review of Systems Review of Systems: All systems reviewed & are unremarkable except as noted in HPI and below PMFSH Past Medical History Medical History Diabetes mellitus Surgical History Surgical History History of kidney transplant Kidney transplant recipient Social History Social History Smoking status: Never smoker Second hand tobacco smoke exposure: No Alcohol intake: never Substance use: never Substance use type: does not use Gender identity (if verbalized by the patient): Female Sexual Orientation (if Verbalized by the Patient): Straight or Heterosexual Exam Narrative: GENERAL: Chronically ill-appearing and in no acute distress. HEAD: Normocephalic, atraumatic. EYES: PERRLA and EOMI. ENT: Nares clear. Mucous membranes moist. NECK: Supple. CHEST: Clear to auscultation. No respiratory distress. HEART: Regular rate and rhythm. Normal peripheral pulses. ABDOMEN: Soft, diffusely tender, no rebound or guarding, nondistended. EXTREMITIES: Normal range of motion. No edema. SKIN: Warm, dry, no rash. NEURO: No focal deficits. Alert and oriented x3. PSYCH: Normal mood and affect. Course Course Emergency Course: By chart review performed, patient here with nausea, vomiting, diarrhea. She is here for the 3rd day in a row. Denies any improvement, keeps vomiting. Triage vitals show hypertension, tachycardia, otherwise unremarkable. Note from yesterday reviewed, patient was here
[2023-12-22] MEDS: METOCLOPRAMIDE HCL INJ 10 MG/2 ML VIAL IV PUSH ×2 (14:18→20:06)
[2023-12-22] MEDS: HYDROmorphone HCL INJ (*CRX) 1 MG/ML SYR 0.5 MG IV PUSH ×3 (14:18→23:11)
[2023-12-22] MEDS: diphenhydrAMINE HCl INJ 50 MG/ML VIAL 25 MG IV PUSH (14:18)
[2023-12-22 14:29] VITALS: BP 187/95; PULSE 112; RESP 19; O2SAT 100
[2023-12-22 14:37] LABS: Glucose Point of Care 264 mg/dl (65-105)
[2023-12-22] MEDS: LACTATED RINGERS 1,000 ML 999 ML IV CONT (14:40)
--- NOTE | 2023-12-22 16:09 | ECG_ITS ---
SEE SCANNED COPY FOR CONFIRMED REPORT MTDD
[2023-12-22 16:24] LABS: Influenza A QL RT-PCR Negative (Negative); Influenza B QL RT-PCR Negative (Negative); RSV RNA, RT-PCR Negative (Negative); SARS-CoV-2 RNA PCR Negative (Negative)
[2023-12-22] MEDS: HALOPERIDOL LACTATE 5 MG/ML VIAL IV PUSH (16:40)
[2023-12-22 19:36] VITALS: BMI 25.2
[2023-12-22] MEDS: LACTATED RINGERS 1,000 ML 100 ML IV CONT (20:05)
--- NOTE | 2023-12-22 20:46 | PM.IMHP ---
H&P: HPI History of Present Illness Date/Time: 12/22/23 19:30 Chief Complaint: Nausea, vomiting, and abdominal pain. Narrative: This is a 48-year-old female with type 1 diabetes mellitus, diabetic nephropathy status post kidney transplant, gastroparesis, chronic obstructive pulmonary disease, hypertension, hyperlipidemia, and anxiety who presented to the emergency department via private vehicle for evaluation of nausea, vomiting, and abdominal pain. The patient provides the following history. The gastroparesis causes her problems on a daily basis with frequent early satiety, nausea, and bloating. It is not unusual for her to have periods of worsening symptoms and this last episode has been ongoing for 3 to 4 days. She reports persistent, diffuse abdominal pain due to bloating with continuous nausea as well as multiple episodes of nonbloody and nonbilious emesis. She has been seen in the ED each day for the last 3 days for these symptoms and with hydration and supportive care she has been feeling well enough to go home. Unfortunately her symptoms returned this morning and she has not been able to hold down any fluids or her medications. She denies fever, chills, sweats, hematemesis, diarrhea, dysuria, and hematuria. She denies cannabis use. No history of peptic ulcers. In the ED: She was afebrile on arrival. Blood pressures have been running in the 160s to 180s systolic. She is tachycardic in the low 100s. Labs were significant for a WBC count of 11.4, hemoglobin 17.1, hematocrit 50.2%, BUN 8, creatinine 0.70, glucose 270. Urine was positive for 1+ protein, 3+ glucose, and 2+ ketones. CT of the abdomen and pelvis done yesterday showed a 4.9 cm cyst in left ovary, likely a follicular cyst. Repeat imaging was not repeated today. She is being admitted in this setting for supportive care. Review of Systems Review of Systems: 12 systems were reviewed and are negative except for as per HPI. [facility] Past Medical History Medical History (Updated 12/22/23 @ 21:03 by Denise Romero PA-C) Chronic obstructive pulmonary disease Diabetic gastroparesis Diabetic nephropathy Hypertension MRSA infection Type 1 diabetes mellitus Surgical History Surgical History (Updated 12/22/23 @ 21:01 by Denise Romero PA-C) History of appendectomy (02/2019) History of benign breast biopsy History of hysterectomy History of kidney transplant History of right nephrectomy Secondary to suspicious mass which turned out to be noncancerous. Family History Family History (Updated 12/22/23 @ 21:01 by Denise Romero PA-C) Other Diabetes mellitus Hypertension Social History Social History (Updated 12/22/23 @ 21:02 by Denise Romero PA-C) Social History: Surrogate medical decision maker: Aleja Mcghee, mother. Code status: Full code. Smoking packs per day: 0.5 Smoking cigarettes per day: 10.0 Smoking status: Former smoker Tobacco type: cigarettes Second hand tobacco smoke exposure: No Smoking end date: 10/27/18 Alcohol intake: never Substance use: never Substance use type: does not use Do You Feel Safe in your Home?: Yes Lack of Transportation: No Lack of Food: Never True Current Housing: I Have Housing Concerned About Future Housing: No Difficulty Paying Gas/Electric Bills: No Difficulty Paying for Meds: No Currently Unemployed: No Education: Don't Know Difficulty w/ Childcare or Family Care: No Spiritual care concerns: No Meds Home Medications and Allergies Home Medications Medication Instructions Recorded Confirmed Type alprazolam 0.25 mg tablet (Xanax) 0.5 mg PO TID PRN Anxiety 08/30/20 12/22/23 History aspirin 81 mg tablet,delayed 81 mg PO DAILY 08/30/20 12/22/23 History release (Adult Aspirin Regimen) azathioprine 50 mg tablet 50 mg PO DAILY 08/30/20 12/22/23 History clindamycin HCl 300 mg capsule 300 mg PO Q8H #30 caps 08/30/20 12/22/23 Rx metoclopramide HCl 10 mg tablet 1
[2023-12-22 21:04] VITALS: PULSE 127
[2023-12-22 21:04] LABS: Barbiturate Screen Urine Negative (Negative)
[2023-12-22] MEDS: carvediloL 6.25 MG TABLET PO (21:04)
[2023-12-22] MEDS: amLODIPine BESYLATE 5 MG TABLET 10 MG PO (21:04)
[2023-12-22 21:14] LABS: Amphetamine Screen Urine Negative (Negative); Cannabinoid Screen Urine Positive (Negative); Methadone Screen Urine Negative (Negative); Phencyclidine Screen Urine Negative (Negative)
[2023-12-22 21:19] LABS: Benzodiazepines Screen Urine Positive (Negative)
[2023-12-22 21:25] LABS: Cocaine Screen Urine Negative (Negative); Opiate Screen Urine Negative (Negative)
[2023-12-22 21:30] VITALS: BP 202/106; PULSE 127; RESP 22; TEMP 37.2; O2SAT 99
[2023-12-22] MEDS: amLODIPine BESYLATE 5 MG TABLET PO (23:14)
[2023-12-22] MEDS: GABAPENTIN 100 MG CAPSULE PO (23:14)
[2023-12-22 23:19] VITALS: BP 206/103; BP 210/112
[2023-12-23] VITALS (8 sets, daily range): BP systolic 118–168; BP diastolic 64–87; PULSE 92–120; RESP 16–22; TEMP 36.6–37; O2SAT 94–98
[2023-12-23] MEDS: hydrALAZINE HCL 20 MG/ML VIAL 10 MG IV PUSH (00:23)
[2023-12-23] MEDS: HYDROmorphone HCL INJ (*CRX) 1 MG/ML SYR 0.5 MG IV PUSH ×3 (00:25→20:46)
[2023-12-23] MEDS: INSULIN ASPART (*BKC) 100 UNITS/ML SUB-Q ×4 (00:35→18:42)
[2023-12-23 00:41] LABS: Glucose Point of Care 232 mg/dl (65-105)
[2023-12-23] MEDS: LACTATED RINGERS 1,000 ML 100 ML IV CONT (04:42)
[2023-12-23] MEDS: GABAPENTIN 100 MG CAPSULE PO ×3 (06:03→20:45)
[2023-12-23] MEDS: traMADol HCL (*CRX) 50 MG TABLET 100 MG PO ×3 (06:03→17:04)
[2023-12-23 06:36] LABS: Glucose Point of Care 219 mg/dl (65-105)
[2023-12-23 06:48] LABS: Hematocrit 44.5 % (37.0-47.0); Hemoglobin 14.9 g/dL (12.0-15.0); Mean Corpuscular HGB Conc 33.5 g/dl (32-36); Mean Corpuscular Hemoglobin 33.3 pg (26-34); Mean Corpuscular Volume 99.3 fl (80-100); Mean Platelet Volume 11.5 fl (7.4-10.4); Platelet Count Result 213 k/mm3 (150-375); Red Blood Count 4.48 M/mm3 (4.2-5.4); Red Cell Distribution Width 13.1 % (11.5-14.5); White Blood Count 9.2 K/mm3 (4.5-10.0)
[2023-12-23] MEDS: FLUTICASONE/SALMETEROL 115-21 MCG INHALER 1 PUFF 2 PUFF INHALATION ×2 (08:12→20:07)
[2023-12-23 08:22] LABS: Anion Gap 14 mmol/L (4-12); Blood Urea Nitrogen 11 mg/dL (7-17); Calcium 8.6 mg/dL (8.4-10.2); Carbon Dioxide 14 mmol/L (22-30); Chloride 102 mmol/L (98-107); Estimated CRCL calculation 76 ml/min; Estimated Glomerular Filt Rate > 60; Glucose 200 mg/dL (65-110); Magnesium 1.3 mg/dL (1.6-2.3); Potassium 3.9 mmol/L (3.4-5.0); Sodium 130 mmol/L (137-145)
[2023-12-23] MEDS: ENOXAPARIN 40 MG/0.4 ML SYRINGE SUB-Q (08:28)
[2023-12-23] MEDS: ALPRAZolam (*CRX) 0.5 MG TABLET PO (08:28)
[2023-12-23] MEDS: ATORVASTATIN 20 MG TABLET PO (08:29)
[2023-12-23] MEDS: ASPIRIN 81 MG ENTERIC TABLET PO (08:29)
[2023-12-23] MEDS: PANTOPRAZOLE 40 MG TABLET PO (08:29)
[2023-12-23] MEDS: MONTELUKAST SODIUM 10 MG TABLET PO (08:29)
[2023-12-23] MEDS: CYANOCOBALAMIN 1,000 MCG TABLET 1000 MCG PO (08:29)
[2023-12-23] MEDS: SERTRALINE HCL 50 MG TABLET PO (08:29)
[2023-12-23] MEDS: CHOLECALCIFEROL 1,000 UNITS TABLET 2000 UNITS PO (08:29)
[2023-12-23] MEDS: carvediloL 6.25 MG TABLET PO ×2 (08:30→20:45)
[2023-12-23] MEDS: amLODIPine BESYLATE 5 MG TABLET PO ×2 (08:30→20:45)
[2023-12-23] MEDS: predniSONE 5 MG TABLET PO (08:30)
[2023-12-23] MEDS: azaTHIOprine 50 MG TABLET PO (08:31)
--- NOTE | 2023-12-23 09:11 | PHAR ---
HOME MED ENVARSUS XR 1 MG TABLET, TAKE 3 TABLETS BY MOUTH IN THE FIRST ASSIST BEFORE BREAKFAST. VERIFIED BY PHARMACY.
[2023-12-23] MEDS: FLUTICASONE PROPIONATE 0.05% NA SPR 16 GM BTL (*BKC) 2 SPRAY NASAL ×2 (09:25→17:01)
[2023-12-23] MEDS: MAGNESIUM SULF 2 GM/WATER 50ML 2 GM/50 ML BAG IVPB (10:53)
[2023-12-23] MEDS: SODIUM CHLORIDE 0.9% IV 1,000 ML 150 ML IV CONT ×2 (10:54→17:00)
[2023-12-23] MEDS: METOCLOPRAMIDE HCL 5 MG TABLET PO ×3 (10:54→20:45)
[2023-12-23 11:21] LABS: Glucose Point of Care 225 mg/dl (65-105)
[2023-12-23 12:52] LABS: SPREG INTERNAL CONTROL Positive; Serum Qual hCG Negative
[2023-12-23 13:03] LABS: Anion Gap 13 mmol/L (4-12); Blood Urea Nitrogen 10 mg/dL (7-17); Calcium 8.9 mg/dL (8.4-10.2); Carbon Dioxide 20 mmol/L (22-30); Chloride 98 mmol/L (98-107); Estimated CRCL calculation 66 ml/min; Estimated Glomerular Filt Rate > 60; Glucose 227 mg/dL (65-110); Potassium 3.3 mmol/L (3.4-5.0); Sodium 131 mmol/L (137-145)
[2023-12-23 13:07] LABS: Beta-Hydroxybutyrate/Acetoacetate 4.42 mmol/L (0.02-0.27)
--- NOTE | 2023-12-23 15:22 | PM.IMPN ---
Progress Note: A&P Assessment and Plan (1) DKA (diabetic ketoacidosis): Code(s): E11.10 - Type 2 diabetes mellitus with ketoacidosis without coma Status: Acute Assessment and Plan: Patient's labs this morning showing bicarb 14 with AG 14. BHO 4.4. Related to her n/v. Her IV fluids advanced. Encouraged her to be compliant with insulin. Check glucose Q4hr and treat with sliding scale. May need dextrose if she gets low. Serial labs. Repeat labs better so continue close monitoring to try to avoid ICU admission (2) Dehydration: Code(s): E86.0 - Dehydration Status: Acute Assessment and Plan: Related to nausea and vomiting from DM gastroparesis. test negative. Diet was advanced (prir to labs known this morning) and she is toelrating this well. Reglan ordered which seems to have helped. Keep on full liquid diet for today. Monitor (3) Diabetic gastroparesis: Code(s): E11.43 - Type 2 diabetes mellitus with diabetic autonomic (poly)neuropathy; K31.84 - Gastroparesis Status: Acute Assessment and Plan: As above. (4) Type 1 diabetes mellitus: Code(s): E10.9 - Type 1 diabetes mellitus without complications Status: Acute Assessment and Plan: The patient's blood glucose was reviewed on 12/22 As above Continue AccuCheks covering with sliding scale. Hypoglycemia protocol available as needed. Follow (5) Kidney transplant recipient: Code(s): Z94.0 - Kidney transplant status Status: Acute Assessment and Plan: Patient with hx of kidney transplant. Continue anti-rejection medications Imuran, Prednisone, Tacrolimus Follow (6) Chronic obstructive pulmonary disease: Code(s): J44.9 - Chronic obstructive pulmonary disease, unspecified Status: Acute Assessment and Plan: Stable. Lungs clear (7) Hypertension: Code(s): I10 - Essential (primary) hypertension Status: Acute Assessment and Plan: Patient's blood pressure was reviewed on 12/22 Blood pressure was elevated to 210/112 at one point but better controlled now. Will continue current medications. Plan Code status - full DVT prophylaxis - Lovenox Subjective Date/time seen: 12/23/23 15:22 Interval history: 48yo female with DM type I, gastroparesis, and HTN here for nausea and vomiting. She has improvement in her nausea. She has Haldol and Reglan at home for nausea. She tried the Haldol without much benefit but not Reglan. Has difuse abdominal pain. No vomiting since this morning. She feels her diet could be advanced. She refused her Lantus this morning. No flatus or BMs today Exam Narrative: AF 97.8 118/64 82 22 96% ra Gen - NARD Chest - CTA bilaterally, nml RR CV - RRR S1/S2 Abd - Soft, hypoactive BS, difusely tender without guarding Ext - No pedal edema Psych - Nml mood and affect Skin - Warm and dry Objective Data Vital Signs Vital Signs: Vital Signs - 24 hr 12/22/23 21:04 12/22/23 23:19 12/22/23 23:19 Temperature Pulse Rate 127 H Respiratory Rate Blood Pressure 210/112 H 206/103 H Pulse Oximetry Oxygen Delivery 12/22/23 21:30 12/22/23 20:00 12/23/23 00:21 Temperature 98.9 F Pulse Rate 127 H 120 H Respiratory Rate 22 H 20 Blood Pressure 202/106 H 168/87 H Pulse Oximetry 99 98 Oxygen Delivery Room Air 12/23/23 02:00 12/23/23 05:51 12/23/23 08:16 Temperature 98.6 F Pulse Rate 96 Respiratory Rate 16 Blood Pressure 121/67 122/69 Pulse Oximetry 98 94 Oxygen Delivery Room Air 12/23/23 08:30 12/23/23 14:00 Temperature 97.8 F Pulse Rate 96 92 Respiratory Rate 22 H Blood Pressure 118/64 Pulse Oximetry 96 Oxygen Delivery Intake/Output Intake/Output: Intake & Output 12/20/23 12/21/23 12/22/23 12/23/23 23:59 23:59 23:59 23:59 Intake Total 1000 1344 Output Total 1000 Balance 1000 344 Meds/Resul
[2023-12-23] MEDS: INSULIN GLARGINE (*BKC) 100 UNITS/ML 28 UNITS SUB-Q (15:28)
[2023-12-23 16:23] LABS: Glucose Point of Care 432 mg/dl (65-105)
[2023-12-23] MEDS: INSULIN ASPART (*BKC) 100 UNITS/ML 12 UNITS SUB-Q (17:02)
[2023-12-23 18:12] LABS: Glucose Point of Care 401 mg/dl (65-105)
[2023-12-23 18:37] LABS: Glucose Point of Care 344 mg/dl (65-105)
[2023-12-23 18:42] LABS: Anion Gap 14 mmol/L (4-12); Blood Urea Nitrogen 11 mg/dL (7-17); Carbon Dioxide 17 mmol/L (22-30); Chloride 102 mmol/L (98-107); Estimated CRCL calculation 66 ml/min; Estimated Glomerular Filt Rate > 60; Glucose 396 mg/dL (65-110); Potassium 3.9 mmol/L (3.4-5.0); Sodium 133 mmol/L (137-145)
--- NOTE | 2023-12-23 18:45 | PC.NURSE ---
Notified Dr. Lanier that patients blood glucose was 344 an hour and a half after the 12 units of novolog administered with dinner. Dr Lanier gave the okay to give the 1800 sliding scale novolog available and to call him in 2 hours with a new glucose result.
[2023-12-23 19:29] LABS: Thyroid Stimulating Hormone Reflex 0.941 uIU/mL (0.465-4.68)
[2023-12-23 19:54] LABS: Glucose Point of Care 162 mg/dl (65-105)
[2023-12-23 20:37] LABS: Glucose Point of Care 149 mg/dl (65-105)
[2023-12-23] MEDS: MIRTAZAPINE 15 MG TABLET PO (20:45)
[2023-12-24 00:08] LABS: Glucose Point of Care 145 mg/dl (65-105)
[2023-12-24] MEDS: traMADol HCL (*CRX) 50 MG TABLET 100 MG PO (00:14)
[2023-12-24] MEDS: ALPRAZolam (*CRX) 0.5 MG TABLET PO (00:14)
[2023-12-24] MEDS: ZOLPIDEM TARTRATE (*CRX) 5 MG TABLET 10 MG PO (00:56)
[2023-12-24 01:14] LABS: Anion Gap 6 mmol/L (4-12); Blood Urea Nitrogen 8 mg/dL (7-17); Calcium 8.7 mg/dL (8.4-10.2); Carbon Dioxide 26 mmol/L (22-30); Chloride 107 mmol/L (98-107); Estimated CRCL calculation 76 ml/min; Estimated Glomerular Filt Rate > 60; Glucose 156 mg/dL (65-110); Potassium 3.1 mmol/L (3.4-5.0); Sodium 139 mmol/L (137-145)
[2023-12-24] MEDS: SODIUM CHLORIDE 0.9% IV 1,000 ML 150 ML IV CONT (03:35)
[2023-12-24 04:05] VITALS: BP 131/56; PULSE 80; RESP 16; TEMP 36.4; O2SAT 97
[2023-12-24] MEDS: POTASSIUM CHLORIDE INJ 40 MEQ in SODIUM CHLORIDE 0.9% IV 500 ML 130 MEQ IVPB (04:12)
[2023-12-24] MEDS: METOCLOPRAMIDE HCL 5 MG TABLET PO ×3 (06:16→16:46)
[2023-12-24] MEDS: GABAPENTIN 100 MG CAPSULE PO ×2 (06:16→13:44)
[2023-12-24] MEDS: HYDROmorphone HCL INJ (*CRX) 1 MG/ML SYR 0.5 MG IV PUSH ×5 (06:24→16:47)
[2023-12-24 06:26] LABS: Glucose Point of Care 118 mg/dl (65-105)
[2023-12-24 06:28] LABS: Basophils Absolute Auto 0.1 K/mm3 (0.0-0.1); Basophils Percent Auto 0.8 % (0.2-1.2); Eosinophils Absolute Auto 0.1 K/mm3 (0-0.3); Eosinophils Percent Auto 1.3 % (0-4.4); Hematocrit 37.7 % (37.0-47.0); Hemoglobin 12.7 g/dL (12.0-15.0); Immature Granulocyte Absolute 0.02 K/mm3 (0.00-0.031); Immature Granulocyte Percent A 0.3 % (0-0.5); Lymphocytes Absolute Auto 2.39 K/mm3 (0.9-3.2); Lymphocytes Percent Auto 37.9 % (18.3-44.2); Mean Corpuscular HGB Conc 33.7 g/dl (32-36); Mean Corpuscular Hemoglobin 33.2 pg (26-34); Mean Corpuscular Volume 98.7 fl (80-100); Mean Platelet Volume 9.9 fl (7.4-10.4); Monocytes Absolute Auto 0.8 K/mm3 (0.1-0.6); Monocytes Percent Auto 12.4 % (2.6-8.5); Neutrophils Percent Auto 47.3 % (45.5-73.1); Platelet Count Result 151 k/mm3 (150-375); Red Blood Count 3.82 M/mm3 (4.2-5.4); Red Cell Distribution Width 13.2 % (11.5-14.5); White Blood Count 6.3 K/mm3 (4.5-10.0)
[2023-12-24 06:37] LABS: Alanine Aminotransferase 9 U/L (6-35); Albumin Level 3.3 g/dL (3.5-5.1); Alkaline Phosphatase 41 U/L (38-126); Anion Gap 4 mmol/L (4-12); Aspartate Amino Transferase 19 U/L (14-36); Bilirubin,Total 0.5 mg/dL (0.2-1.3); Blood Urea Nitrogen 8 mg/dL (7-17); Calcium 8.1 mg/dL (8.4-10.2); Carbon Dioxide 26 mmol/L (22-30); Chloride 108 mmol/L (98-107); Estimated CRCL calculation 75 ml/min; Estimated Glomerular Filt Rate > 60; Glucose 124 mg/dL (65-110); Magnesium 1.6 mg/dL (1.6-2.3); Potassium 3.6 mmol/L (3.4-5.0); Sodium 138 mmol/L (137-145)
[2023-12-24] MEDS: FLUTICASONE/SALMETEROL 115-21 MCG INHALER 1 PUFF 2 PUFF INHALATION (07:37)
[2023-12-24 07:38] VITALS: PULSE 91; RESP 20; O2SAT 98
[2023-12-24 08:00] LABS: Glucose Point of Care 126 mg/dl (65-105)
[2023-12-24] MEDS: SERTRALINE HCL 50 MG TABLET PO (08:44)
[2023-12-24] MEDS: CYANOCOBALAMIN 1,000 MCG TABLET 1000 MCG PO (08:44)
[2023-12-24] MEDS: carvediloL 6.25 MG TABLET PO (08:44)
[2023-12-24] MEDS: amLODIPine BESYLATE 5 MG TABLET PO (08:44)
[2023-12-24] MEDS: ASPIRIN 81 MG ENTERIC TABLET PO (08:44)
[2023-12-24] MEDS: MONTELUKAST SODIUM 10 MG TABLET PO (08:44)
[2023-12-24] MEDS: CHOLECALCIFEROL 1,000 UNITS TABLET 2000 UNITS PO (08:44)
[2023-12-24] MEDS: ATORVASTATIN 20 MG TABLET PO (08:44)
[2023-12-24] MEDS: FLUTICASONE PROPIONATE 0.05% NA SPR 16 GM BTL (*BKC) 2 SPRAY NASAL (08:44)
[2023-12-24] MEDS: PANTOPRAZOLE 40 MG TABLET PO (08:44)
[2023-12-24] MEDS: azaTHIOprine 50 MG TABLET PO (08:45)
[2023-12-24] MEDS: predniSONE 5 MG TABLET PO (08:45)
[2023-12-24] MEDS: ENOXAPARIN 40 MG/0.4 ML SYRINGE SUB-Q (08:45)
[2023-12-24] MEDS: INSULIN GLARGINE (*BKC) 100 UNITS/ML 28 UNITS SUB-Q (08:46)
[2023-12-24 11:21] LABS: Glucose Point of Care 176 mg/dl (65-105)
[2023-12-24 13:35] LABS: Glucose Point of Care 308 mg/dl (65-105)
[2023-12-24] MEDS: INSULIN ASPART (*BKC) 100 UNITS/ML SUB-Q ×2 (13:43→16:46)
[2023-12-24 14:00] VITALS: BP 143/79; PULSE 94; RESP 22; TEMP 36.5; O2SAT 97
[2023-12-24 16:23] LABS: Glucose Point of Care 214 mg/dl (65-105)
--- NOTE | 2023-12-24 17:48 | PM.DS ---
DS: Admitting Diagnosis Discharge Date 12/24/23 Admitting Diagnosis Nausea, vomiting, and abdominal pain. DS: Discharge Diagnosis Discharge Diagnosis (1) DKA (diabetic ketoacidosis): Code(s): E11.10 - Type 2 diabetes mellitus with ketoacidosis without coma Status: Acute (2) Dehydration: Code(s): E86.0 - Dehydration Status: Acute (3) Diabetic gastroparesis: Code(s): E11.43 - Type 2 diabetes mellitus with diabetic autonomic (poly)neuropathy; K31.84 - Gastroparesis Status: Acute (4) Type 1 diabetes mellitus: Code(s): E10.9 - Type 1 diabetes mellitus without complications Status: Acute (5) Kidney transplant recipient: Code(s): Z94.0 - Kidney transplant status Status: Acute (6) Chronic obstructive pulmonary disease: Code(s): J44.9 - Chronic obstructive pulmonary disease, unspecified Status: Acute (7) Hypertension: Code(s): I10 - Essential (primary) hypertension Status: Acute DS: Summary Hospital Course Reason for hospitalization: 48yo female with DM type I, gastroparesis, and HTN here for nausea and vomiting. Please see H&P for details Hospital Course: Patient presented with nausea and vomiting related to DM gastroparesis. test negative. Patient's labs worsened with bicarb 14 with AG 14. BHO 4.4. Her IV fluids were advanced. We checked glucose Q4hr and treated with sliding scale. Glucose was checked frequently and treated with insulin. Serial labs performed and gap closed and bicarb normalized. Diet was started and advanced and she is tolerating this well. Reglan started which seems to have helped. Patient with kidney transplant recipient. We continued her anti-rejection medications. She was recently diagnosed with UTI but has been unable to take her Macrobid. UA here noted and not consistent with UTI. We started Rocephin. We tried to obtain the old culture results but none forthcoming. She overall did wll and was able to be discharged home on 12/23. Coreg is actually a home medication Status at Discharge Cognitive/behavioral status at discharge: stable Time Spent with Patient Time attestation: Total time spent providing and/or coordinating discharge services: 35 minutes Time spent: Greater than 30 minutes Exam Narrative: AF 97.7 143/79 84 22 97% ra Gen - NARD Chest - CTA bilaterally, nml RR CV - RRR S1/S2 Abd -soft, ND, kidney midline lower abd. LLQ pain but no guarding Ext - No pedal edema Psych - Nml mood and affect Skin - Warm and dry DS: Data Data Completed and Pending Labs on day of discharge: Labs from last 24 hours 12/24/23 12/24/23 12/24/23 16:05 13:17 11:11 WBC RBC Hgb Hct MCV MCH MCHC RDW Plt Count MPV Immature Gran % (Auto) Neut % (Auto) Lymph % (Auto) [place] % (Auto) Eos % (Auto) Baso % (Auto) Lymph # (Auto) [place] # (Auto) Eos # (Auto) Baso # (Auto) Abs Immat Gran (auto) Absolute Neuts (auto) Absolute Nucleated RBC Nucleated RBC % Sodium Potassium Chloride Carbon Dioxide Anion Gap BUN Creatinine Estim Creat Clear Calc Estimated GFR Glucose POC Capillary Glucose 214 H 308 H 176 H Hemoglobin A1c Calcium Phosphorus Magnesium Total Bilirubin AST ALT Alkaline Phosphatase Total Protein Albumin TSH (Reflex) 12/24/23 12/24/23 12/24/23 07:27 06:11 04:08 WBC 6.3 RBC 3.82 L Hgb 12.7 Hct 37.7 MCV 98.7 MCH 33.2 MCHC 33.7 RDW 13.2 Plt Count 151 MPV 9.9 Immature Gran % (Auto) 0.3 Neut % (Auto) 47.3 Lymph % (Auto) 37.9 [place] % (Auto) 12.4 H Eos % (Auto) 1.3 Baso % (Auto) 0.8 Lymph # (Auto) 2.39 [place] # (Auto) 0.8 H Eos # (Auto) 0.1 Baso # (Auto) 0.1 Abs Immat Gran (auto) 0.02 Absolute Neuts (auto) 3.0 Absolute Nucleated RBC 0.000 Nucleate
--- NOTE | 2024-01-02 08:46 | PC.NURSE ---
Found patients home med and called and left message
== END 2023-12-24 18:25 | disposition home or self-care (01) ==
LOC: ANHED 11:59 → ANH3MEDSUR 19:18
PROVIDERS: Physician Assistant; Admitting Provider Family Medicine; Emergency Provider Student in an Organized Health Care Education/Training Program; PCP Internal Medicine; Visit Provider Internal Medicine
DX: E10.43 Type 1 diabetes mellitus with diabetic autonomic (poly)neuropathy (principal); K31.84 Gastroparesis; E10.10 Type 1 diabetes mellitus with ketoacidosis without coma; E86.0 Dehydration; Z79.82 Long term (current) use of aspirin; Z94.0 Kidney transplant status; E10.21 Type 1 diabetes mellitus with diabetic nephropathy; J44.9 Chronic obstructive pulmonary disease, unspecified; E78.5 Hyperlipidemia, unspecified; F41.9 Anxiety disorder, unspecified; Z86.14 Personal history of Methicillin resistant Staphylococcus aureus infection; Z87.891 Personal history of nicotine dependence; Z79.621 Long term (current) use of calcineurin inhibitor; Z79.4 Long term (current) use of insulin; Z20.822 Contact with and (suspected) exposure to COVID-19; Z79.899 Other long term (current) drug therapy
CPT/HCPCS: 36415; 80048; 80053; 80307; 81001; 82010; 82948; 83036; 83690; 83735; 84100; 84443; 84703; 85025; 85027; 87637; 93005; 94640; 96361; 96365; 96374; 96375; 96376; 99285; A9270; G0378; J0360; J0696; J1170; J1200; J1630; J1650; J1815; J2765; J3475; J3480; J7030; J7040; J7120; J7512

== ENCOUNTER 2023-12-25 14:01 | Emergency (ER) | payer MEDICARE, SELFPAY ==
[2023-12-25] VITALS (9 sets, daily range): BP systolic 132–193; BP diastolic 78–108; PULSE 82–111; RESP 13–17; TEMP 37.2; O2SAT 97–100
--- NOTE | ~2023-12-25 | XR_ITS ---
EXAMINATION: XR abdomen/kub 1V DATE: 12/25/2023 16:13 INDICATION: Hematuria. TECHNIQUE: A supine view of the abdomen on 2 radiographs was obtained. COMPARISON: CT abdomen and pelvis 12/21/2023 FINDINGS: There are no dilated loops of bowel. There phleboliths in the pelvis. A calcification in na tive left kidney lower pole is likely vascular. IMPRESSION: 1. No visible urolithiasis. Reviewed, dictated and finalized at location A. IMPRESSION: 1. No visible urolithiasis.
--- NOTE | 2023-12-25 15:17 | ED.NAVMDI ---
HPI - Nausea/Vomiting/Diarrhea General Chief complaint: Nausea/Vomiting/Diarrhea Stated complaint: gastroparesis attack Time Seen by Provider: 12/25/23 14:06 Source: patient and family () Mode of arrival: ambulatory Limitations: no limitations History of Present Illness HPI Narrative: 48-year-old female this medical history insulin-dependent diabetes and history MRSA infection who presents with complaint of nausea, vomiting, and diarrhea associated with abdominal pain. Patient has presented times for this previously including several this week which she was hospitalized. She has a presumptive diagnosis gastroparesis however does state that she has testing to confirm or negate this. She is on both long-acting and short-acting insulin and states she took her morning dose of a long-acting insulin 28 units. Patient states her symptoms had improved at the time of discharge yesterday, 12/24/2023 but then recurred. She denies any fevers. Her abdominal pain is generalized and located all over, described as a cramping. She previously saw GI specialist Dr Solis at [facility] but states that she would like a referral as she does not feel he has enough time to give her his attention. Takes PRN but not frequently. Denies alcohol or marijuana use. Related Data Home Medications Medication Instructions Recorded Confirmed alprazolam 0.25 mg tablet (Xanax) 0.5 mg PO TID PRN Anxiety 08/30/20 12/22/23 aspirin 81 mg tablet,delayed 81 mg PO DAILY 08/30/20 12/22/23 release (Adult Aspirin Regimen) azathioprine 50 mg tablet 50 mg PO DAILY 08/30/20 12/22/23 omeprazole 20 mg capsule,delayed 20 mg PO DAILY 08/30/20 12/22/23 release prednisolone 5 mg tablet 5 mg PO DAILY 08/30/20 12/22/23 tacrolimus 1 mg tablet,extended 3 mg PO QAM 08/30/20 12/22/23 release 24 hr (Envarsus XR) zolpidem 10 mg tablet (Ambien) 10 mg PO HS PRN Insomnia 08/30/20 12/22/23 amlodipine 5 mg tablet 5 mg PO BID 12/22/23 12/22/23 atorvastatin 20 mg tablet 20 mg PO DAILY 12/22/23 12/22/23 biotin 5 mg tablet 5 mg PO HS 12/22/23 12/22/23 cholecalciferol (vitamin D3) 50 50 mcg PO DAILY 12/22/23 12/22/23 mcg (2,000 unit) tablet (Vitamin D3) cyanocobalamin (vitamin B-12) 500 1,000 mcg PO DAILY 12/22/23 12/22/23 mcg tablet epinephrine 0.3 mg/0.3 mL 0.3 mg IM Q5-15M PRN Anaphylaxis 12/22/23 12/22/23 injection, auto-injector flash glucose sensor (FreeStyle 12/22/23 12/22/23 Lynda 14 Day Sensor kit) fluticasone furoate 100 1 inh inhalation DAILY 12/22/23 12/22/23 mcg-vilanterol 25 mcg/dose inhalation powder (Breo Ellipta) fluticasone propionate 50 2 spray intranasal BID 12/22/23 12/22/23 mcg/actuation nasal spray,suspension gabapentin 100 mg capsule 100 mg PO TID 12/22/23 12/22/23 glucagon 3 mg/actuation nasal 3 mg intranasal ONCE PRN 12/22/23 12/22/23 spray (Baqsimi) Hypoglycemia insulin glargine U-300 conc 300 28 unit subcut DAILY 12/22/23 12/22/23 unit/mL (1.5 mL) subcutaneous pen (Toujeo SoloStar U-300 Insulin) insulin lispro 100 unit/mL 1 sliding scale dose subcut 12/22/23 12/22/23 subcutaneous half-unit pen USEASDIRECTD mirtazapine 15 mg tablet 15 mg PO HS 12/22/23 12/22/23 montelukast 10 mg tablet 10 mg PO DAILY 12/22/23 12/22/23 pen needle, diabetic 31 gauge x 12/22/23 12/22/23/16 (BD Ultra-Fine Mini Pen Needle) sertraline 50 mg tablet 50 mg PO DAILY 12/22/23 12/22/23 tramadol 50 mg tablet 100 mg PO Q6H PRN Pain 12/22/23 12/22/23 Allergies Allergy/AdvReac Type Severity Reaction Status Date / Time cyclobenzaprine Allergy Unknown Hives / Verified 12/21/23 11:12 Red Face tetracycline Allergy Unknown Nausea and Verified 12/21/23 11:12 Vomiting acetaminophen [From Tylenol] Allergy Nausea and Verified 12/21/23 11:12 Vomiting morphine AdvReac Itching Verified 12/21/23 11:12 [facility] Past Medical History Medical History (Updated 12/25/23 @ 18:22 by Freya Saldana MD) Chronic obstructive pulmonary disease Diabetic
[2023-12-25 15:38] LABS: Basophils Absolute Auto 0.1 K/mm3 (0.0-0.1); Basophils Percent Auto 0.8 % (0.2-1.2); Eosinophils Percent Auto 0.2 % (0-4.4); Hematocrit 49.6 % (37.0-47.0); Immature Granulocyte Absolute 0.04 K/mm3 (0.00-0.031); Immature Granulocyte Percent A 0.5 % (0-0.5); Lymphocytes Absolute Auto 1.41 K/mm3 (0.9-3.2); Lymphocytes Percent Auto 15.9 % (18.3-44.2); Mean Corpuscular HGB Conc 34.3 g/dl (32-36); Mean Corpuscular Hemoglobin 32.8 pg (26-34); Mean Corpuscular Volume 95.6 fl (80-100); Mean Platelet Volume 10.4 fl (7.4-10.4); Monocytes Absolute Auto 0.7 K/mm3 (0.1-0.6); Monocytes Percent Auto 7.3 % (2.6-8.5); Neutrophils Absolute Auto 6.7 K/mm3 (1.3-6.7); Neutrophils Percent Auto 75.3 % (45.5-73.1); Platelet Count Result 167 k/mm3 (150-375); Red Blood Count 5.19 M/mm3 (4.2-5.4); Red Cell Distribution Width 13.2 % (11.5-14.5); White Blood Count 8.9 K/mm3 (4.5-10.0)
[2023-12-25 15:44] LABS: Appearance Urine Clear (Clear); Bacteria Urine None Seen /hpf; Bilirubin Urine Negative (Negative); Blood Urine 1+ (Negative); Color Urine Yellow (Yellow); Glucose Urine UA 3+ mg/dL (Negative); Ketones Urine 2+ mg/dL (Negative); Leukocyte Esterase Ur Negative LEU/UL (Negative); Nitrate Urine Negative (Negative); Non Pathogenic Casts 0-2; Protein Urine Trace mg/dL (Negative); Specific Grav Ur 1.015 (1.001-1.035); Squamous Epithelial Cell Urine None Seen /hpf (Few); Urobilinogen Urine 0.2 mg/dL (<2.0); WBC Urine 0-5 /hpf (0-3); pH Urine 7.5 (5.0-9.0)
[2023-12-25 15:45] LABS: Add Urine Microscopic? YES
[2023-12-25 15:51] LABS: Lactic Acid Reflex 1.8 mmol/L (0.7-2.0)
[2023-12-25] MEDS: METOCLOPRAMIDE HCL INJ 10 MG/2 ML VIAL IV PUSH (15:56)
[2023-12-25] MEDS: SODIUM CHLORIDE 0.9% IV 1,000 ML 999 ML IV CONT (15:56)
[2023-12-25] MEDS: HYDROmorphone HCL INJ (*CRX) 1 MG/ML SYR 0.5 MG IV PUSH ×2 (15:56→17:36)
[2023-12-25 16:00] LABS: Alanine Aminotransferase 16 U/L (6-35); Alkaline Phosphatase 65 U/L (38-126); Anion Gap 11 mmol/L (4-12); Aspartate Amino Transferase 28 U/L (14-36); Bilirubin,Total 1.1 mg/dL (0.2-1.3); Blood Urea Nitrogen 9 mg/dL (7-17); Carbon Dioxide 29 mmol/L (22-30); Chloride 96 mmol/L (98-107); Estimated CRCL calculation 66 ml/min; Estimated Glomerular Filt Rate > 60; Glucose 297 mg/dL (65-110); Lipase 15 U/L (23-300); Magnesium 1.3 mg/dL (1.6-2.3); Potassium 3.5 mmol/L (3.4-5.0); Sodium 136 mmol/L (137-145)
[2023-12-25 16:14] LABS: Influenza A QL RT-PCR Negative (Negative); Influenza B QL RT-PCR Negative (Negative); SARS-CoV-2 RNA PCR Negative (Negative)
[2023-12-25] MEDS: HALOPERIDOL LACTATE 5 MG/ML VIAL IV PUSH (16:41)
[2023-12-25] MEDS: MAGNESIUM SULF 2 GM/WATER 50ML 2 GM/50 ML BAG IVPB (16:42)
[2023-12-25] MEDS: PROMETHAZINE HCL 25 MG/ML AMPUL 12.5 MG IV PUSH (17:37)
[2023-12-25] MEDS: SODIUM CHLORIDE 0.9% IV 50 ML (17:49)
== END 2023-12-25 18:49 | disposition home or self-care (01) ==
PROVIDERS: Emergency Provider Student in an Organized Health Care Education/Training Program; PCP Internal Medicine
DX: E10.65 Type 1 diabetes mellitus with hyperglycemia (principal); E83.42 Hypomagnesemia; D58.2 Other hemoglobinopathies; R11.2 Nausea with vomiting, unspecified; R19.7 Diarrhea, unspecified; E10.43 Type 1 diabetes mellitus with diabetic autonomic (poly)neuropathy; K31.84 Gastroparesis; Z20.822 Contact with and (suspected) exposure to COVID-19; E10.21 Type 1 diabetes mellitus with diabetic nephropathy; I10 Essential (primary) hypertension; J44.9 Chronic obstructive pulmonary disease, unspecified; Z94.0 Kidney transplant status; Z86.14 Personal history of Methicillin resistant Staphylococcus aureus infection; Z87.891 Personal history of nicotine dependence; Z90.710 Acquired absence of both cervix and uterus; Z90.5 Acquired absence of kidney; Z79.82 Long term (current) use of aspirin; Z79.4 Long term (current) use of insulin; Z79.899 Other long term (current) drug therapy
CPT/HCPCS: 36415; 74018; 80053; 81001; 83605; 83690; 83735; 85025; 87636; 96361; 96365; 96366; 96375; 96376; 99284; J1170; J1630; J2550; J2765; J3475; J7030

== ENCOUNTER 2024-01-10 06:28 | Inpatient (IN) | payer MEDICARE, SELFPAY ==
[2024-01-10] VITALS (29 sets, daily range): BP systolic 115–159; BP diastolic 60–96; PULSE 74–105; RESP 12–22; TEMP 36.5–38.3; O2SAT 83–100; BMI 26.8
--- NOTE | ~2024-01-10 | XR_ITS ---
XR chest 2V 01/10/2024 07:42 Indication: Asthma. Shortness of breath. Procedure: AP and lateral views of the chest Comparison: 06/19/2017 Findings: Diffuse bilateral airspace disease. Small right pleural effusion. No pneumothorax. No acute osseous abnormality. Impression: 1: Diffuse bilateral airspace disease may represent edema or pneumonia. Reviewed, dictated and finalized at location B. Impression: 1: Diffuse bilateral airspace disease may represent edema or pneumonia.
--- NOTE | 2024-01-10 06:39 | ECG_ITS ---
Test Date: 2024-01-10 06:43:19 Measurements Intervals [place] Rate: 98 P: 40 CA: 139 QRS: 18 QRSD: 83 T: 124 QT: 342 QTc: 438 Interpretive Statements SINUS RHYTHM ST DEVIATION AND MODERATE T-WAVE ABNORMALITY, CONSIDER LATERAL ISCHEMIA [-0.1+ mV T WAVE IN I/aVL/V5/V6] ABNORMAL ECG No previous ECG available for comparison Electronically Signed On 01-10-2024 07:20:29 CDT by Hermlio Feldman M.D.
--- NOTE | 2024-01-10 06:48 | PC.NURSE ---
0648: Vascular access called to come and try start IV and get blood from pt
--- NOTE | 2024-01-10 07:03 | ED.ABDPAIN ---
HPI - Abdominal Pain General Chief Complaint: Abdominal Pain Stated Complaint: FEVER, ABD PAIN Time Seen by Provider: 01/10/24 07:02 History of Present Illness HPI narrative: Patient is a 48 y/o CF with h/o renal transplant, DM1, and gastroparesis who p/w N/V/D. Began at 0300. Diffuse abdominal cramping with multiple episodes of emesis/diarrhea. Found to be febrile here at 101F and hypoxia in the 70's. Denies dyspnea or productive cough. Denies aspiration. Transplant team located at [facility]. No CP. Related Data Home Medications Medication Instructions Recorded Confirmed alprazolam 0.25 mg tablet (Xanax) 0.5 mg PO TID PRN Anxiety 08/30/20 12/22/23 aspirin 81 mg tablet,delayed 81 mg PO DAILY 08/30/20 12/22/23 release (Adult Aspirin Regimen) azathioprine 50 mg tablet 50 mg PO DAILY 08/30/20 12/22/23 omeprazole 20 mg capsule,delayed 20 mg PO DAILY 08/30/20 12/22/23 release prednisolone 5 mg tablet 5 mg PO DAILY 08/30/20 12/22/23 tacrolimus 1 mg tablet,extended 3 mg PO QAM 08/30/20 12/22/23 release 24 hr (Envarsus XR) zolpidem 10 mg tablet (Ambien) 10 mg PO HS PRN Insomnia 08/30/20 12/22/23 amlodipine 5 mg tablet 5 mg PO BID 12/22/23 12/22/23 atorvastatin 20 mg tablet 20 mg PO DAILY 12/22/23 12/22/23 biotin 5 mg tablet 5 mg PO HS 12/22/23 12/22/23 cholecalciferol (vitamin D3) 50 50 mcg PO DAILY 12/22/23 12/22/23 mcg (2,000 unit) tablet (Vitamin D3) cyanocobalamin (vitamin B-12) 500 1,000 mcg PO DAILY 12/22/23 12/22/23 mcg tablet epinephrine 0.3 mg/0.3 mL 0.3 mg IM Q5-15M PRN Anaphylaxis 12/22/23 12/22/23 injection, auto-injector flash glucose sensor (FreeStyle 12/22/23 12/22/23 Lynda 14 Day Sensor kit) fluticasone furoate 100 1 inh inhalation DAILY 12/22/23 12/22/23 mcg-vilanterol 25 mcg/dose inhalation powder (Breo Ellipta) fluticasone propionate 50 2 spray intranasal BID 12/22/23 12/22/23 mcg/actuation nasal spray,suspension gabapentin 100 mg capsule 100 mg PO TID 12/22/23 12/22/23 glucagon 3 mg/actuation nasal 3 mg intranasal ONCE PRN 12/22/23 12/22/23 spray (Baqsimi) Hypoglycemia insulin glargine U-300 conc 300 28 unit subcut DAILY 12/22/23 12/22/23 unit/mL (1.5 mL) subcutaneous pen (Toujeo SoloStar U-300 Insulin) insulin lispro 100 unit/mL 1 sliding scale dose subcut 12/22/23 12/22/23 subcutaneous half-unit pen USEASDIRECTD mirtazapine 15 mg tablet 15 mg PO HS 12/22/23 12/22/23 montelukast 10 mg tablet 10 mg PO DAILY 12/22/23 12/22/23 pen needle, diabetic 31 gauge x 12/22/23 12/22/23 3/16 (BD Ultra-Fine Mini Pen Needle) sertraline 50 mg tablet 50 mg PO DAILY 12/22/23 12/22/23 tramadol 50 mg tablet 100 mg PO Q6H PRN Pain 12/22/23 12/22/23 Allergies Allergy/AdvReac Type Severity Reaction Status Date / Time cyclobenzaprine Allergy Unknown Hives / Verified 01/10/24 06:39 Red Face tetracycline Allergy Unknown Nausea and Verified 01/10/24 06:39 Vomiting acetaminophen [From Tylenol] Allergy Nausea and Verified 01/10/24 06:39 Vomiting morphine AdvReac Itching Verified 01/10/24 06:39 Review of Systems Review of Systems: All systems reviewed & are unremarkable except as noted in HPI and below Constitutional: Constitutional: Denies chills, Reports fatigue and Reports fever(s) ENT: Denies nasal congestion and Denies sore throat Cardiovascular: Cardiovascular: Reports no additional cardiovascular complaints Respiratory: Respiratory: Reports no additional respiratory complaints Gastrointestinal: Gastrointestinal: Reports abdominal pain, Reports bloating, Reports diarrhea, Reports nausea and Reports vomiting Genitourinary: Genitourinary: Reports no additional female genitourinary complaints Musculoskeletal: Musculoskeletal: Reports no additional musculoskeletal complaints Neurologic: Reports system reviewed and no additional complaints, except as documented [facility] Past Medical History Medical History (Updated 01/10/24 @ 16:00 by Christian Malave MD) Chron
[2024-01-10] MEDS: SODIUM CHLORIDE 0.9% IV 1,000 ML 999 ML IV CONT (07:20)
[2024-01-10] MEDS: PROMETHAZINE HCL 25 MG/ML AMPUL 12.5 MG IV PUSH ×2 (07:25→20:50)
[2024-01-10] MEDS: DICYCLOMINE HCL INJ 20 MG/2 ML VIAL IM (07:27)
[2024-01-10 07:29] LABS: Basophils Absolute Auto 0.1 K/mm3 (0.0-0.1); Basophils Percent Auto 0.7 % (0.2-1.2); Eosinophils Absolute Auto 0.3 K/mm3 (0-0.3); Eosinophils Percent Auto 3.6 % (0-4.4); Hematocrit 34.8 % (37.0-47.0); Hemoglobin 11.2 g/dL (12.0-15.0); Immature Granulocyte Absolute 0.06 K/mm3 (0.00-0.031); Immature Granulocyte Percent A 0.7 % (0-0.5); Lymphocytes Absolute Auto 2.39 K/mm3 (0.9-3.2); Lymphocytes Percent Auto 27.9 % (18.3-44.2); Mean Corpuscular HGB Conc 32.2 g/dl (32-36); Mean Corpuscular Hemoglobin 33.3 pg (26-34); Mean Corpuscular Volume 103.6 fl (80-100); Mean Platelet Volume 10.3 fl (7.4-10.4); Monocytes Percent Auto 11.9 % (2.6-8.5); Neutrophils Absolute Auto 4.7 K/mm3 (1.3-6.7); Neutrophils Percent Auto 55.2 % (45.5-73.1); Nucleated Red Blood Cells Perc 0.7 % (0.0-0.2); Platelet Count Result 156 k/mm3 (150-375); Red Blood Count 3.36 M/mm3 (4.2-5.4); Red Cell Distribution Width 14.6 % (11.5-14.5); White Blood Count 8.6 K/mm3 (4.5-10.0)
[2024-01-10 08:45] LABS: Influenza A QL RT-PCR Negative (Negative); Influenza B QL RT-PCR Negative (Negative); RSV RNA, RT-PCR Negative (Negative); SARS-CoV-2 RNA PCR Negative (Negative)
[2024-01-10 10:38] LABS: Appearance Urine Clear (Clear); Bilirubin Urine Negative (Negative); Blood Urine Negative (Negative); Color Urine Yellow (Yellow); Glucose Urine UA Negative (Negative); Ketones Urine Negative (Negative); Leukocyte Esterase Ur Negative LEU/UL (Negative); Nitrate Urine Negative (Negative); Protein Urine Negative (Negative); Specific Grav Ur 1.005 (1.001-1.035); Urobilinogen Urine 0.2 mg/dL (<2.0); pH Urine 7.5 (5.0-9.0)
[2024-01-10 10:43] LABS: Add Urine Microscopic? NO
--- NOTE | 2024-01-10 10:53 | PC.NURSE ---
multiple attempts to attain lab specimens. unable to attain. initial labs had hemolyzed. will call vascular access again
[2024-01-10] MEDS: fentaNYL CITRATE INJ (*CRX) 100 MCG/2 ML VIAL 50 MCG IV PUSH (11:58)
[2024-01-10 12:11] LABS: Alanine Aminotransferase 8 U/L (6-35); Albumin Level 3.3 g/dL (3.5-5.1); Alkaline Phosphatase 51 U/L (38-126); Anion Gap 4 mmol/L (4-12); Aspartate Amino Transferase 20 U/L (14-36); Bilirubin,Total 0.5 mg/dL (0.2-1.3); Blood Urea Nitrogen 9 mg/dL (7-17); Calcium 7.9 mg/dL (8.4-10.2); Carbon Dioxide 29 mmol/L (22-30); Chloride 105 mmol/L (98-107); Estimated Glomerular Filt Rate > 60; Glucose 188 mg/dL (65-110); Lactic Acid Reflex 0.9 mmol/L (0.7-2.0); Potassium 3.7 mmol/L (3.4-5.0); Sodium 138 mmol/L (137-145)
[2024-01-10 12:18] LABS: NT Pro B Type Natriuretic Pept 3100 pg/mL (19.9-100)
[2024-01-10 12:46] LABS: Lipase < 10 U/L (23-300)
[2024-01-10] MEDS: AZITHROMYCIN 500 MG/NS 250 ML 500 MG/250 ML BAG 250 MG IVPB (13:04)
[2024-01-10] MEDS: FUROSEMIDE INJ 40 MG/4 ML VIAL IV PUSH (14:20)
--- NOTE | 2024-01-10 16:10 | PM.IMHP ---
H&P: HPI History of Present Illness Date/Time: 01/10/24 16:10 Chief Complaint: Fever, nausea, vomiting. Narrative: This is a 48-year-old female with type 1 diabetes mellitus, diabetic nephropathy status post kidney transplant, gastroparesis, chronic obstructive pulmonary disease, hypertension, hyperlipidemia, and anxiety who presented to the emergency department via private vehicle for evaluation of fever, nausea, and vomiting. She is known to myself and the hospitalist service from an admission several weeks ago in which she was treated for dehydration and mild diabetic ketoacidosis after presenting with nausea and vomiting which she attributed to a ?gastroparesis attack?. She was seen in the ED the day after discharge with similar complaints and she improved with supportive treatment. She has done well since that time however this morning at about 03:00 she was wakened from sleep with upper abdominal pain similar to previous attacks associated with severe nausea and several episodes of non bloody and non bilious emesis. She had several loose stools as well. After couple of hours she started to feel acutely short of breath and used her rescue inhaler several times without benefits. With further questioning she does endorse mild orthopnea today and states that she has had significant swelling in her feet and ankles for the last several weeks which she thinks is due to all of her recent hospital visits in which she received IV fluids. She denies headache, neck ache, sinus congestion, sore throat, chest or pleuritic pain, racing heart, palpitations, syncope, near syncope, cough, sick contacts, melena, hematochezia, dysuria, open wounds, and calf pain. In the ED: Temperature was 101? F on arrival. SpO2 was 83% on room air. Blood pressure and pulse were stable. Labs were significant for a WBC count of 8.6, hemoglobin 11.2, sodium 138, potassium 37, chloride 105, carbon dioxide 29, BUN 9, creatinine 0.70, lactic acid 0.9, proBNP 3100, lipase less than 10. UA was unremarkable. She tested negative for influenza, RSV, and COVID. Chest x-ray showed diffuse bilateral airspace disease which may represent pneumonia or edema. She was given furosemide 40 mg IV, azithromycin 500 mg IV, and ceftriaxone 1 g IV. She is being admitted in this setting for further treatment and evaluation. Review of Systems Review of Systems: 12 systems were reviewed and are negative except for as per HPI. PMFSH Past Medical History Medical History Chronic obstructive pulmonary disease Diabetic gastroparesis Diabetic nephropathy Hypertension MRSA infection Type 1 diabetes mellitus Surgical History Surgical History History of appendectomy (02/2019) History of benign breast biopsy History of hysterectomy History of kidney transplant History of right nephrectomy Secondary to suspicious mass which turned out to be noncancerous. Family History Family History Grandparent Diabetes mellitus Grandparent Hypertension Social History Social History Social History: Surrogate medical decision maker: Aleja Taz, mother. Code status: Full code. Smoking packs per day: 1 Smoking cigarettes per day: 20.0 Years smoked: 6 Smoking pack-years: 6.00 Smoking status: Former smoker Tobacco type: cigarettes Second hand tobacco smoke exposure: No Smoking end date: 10/27/18 Alcohol intake: never Substance use: never Substance use type: does not use Do You Feel Safe in your Home?: Yes Lack of Transportation: No Lack of Food: Never True Current Housing: I Have Housing Concerned About Future Housing: No Difficulty Paying Gas/Electric Bills: No Difficulty Paying for Meds: No Currently Unemployed: No Education: High School Di
--- NOTE | 2024-01-10 18:43 | ADMGEN ---
This patient, Juaquin Rey, was admitted to 2 Medical Room 259-. Patient/family oriented to hospital policies and general routines including ID bracelet, bed and alarms, visiting hours, pain management, procedures, bathroom and other care routines, personal items, smoking policy, room service/diet, and visiting hours. Information on how to activate the Rapid Response Team has been discussed. Patient/Family are encouraged to report perceived risks to care and to ask questions if they do not understand what they are told or what they should do.
[2024-01-10] MEDS: FUROSEMIDE INJ 40 MG/4 ML VIAL 20 MG IV PUSH (20:47)
[2024-01-10] MEDS: HYDROmorphone HCL INJ (*CRX) 1 MG/ML SYR 0.5 MG IV PUSH (20:48)
[2024-01-10] MEDS: amLODIPine BESYLATE 5 MG TABLET PO (21:01)
[2024-01-10] MEDS: carvediloL 6.25 MG TABLET PO (21:02)
[2024-01-10] MEDS: MIRTAZAPINE 15 MG TABLET PO (21:03)
[2024-01-10] MEDS: ZOLPIDEM TARTRATE (*CRX) 5 MG TABLET 10 MG PO (21:03)
[2024-01-10] MEDS: ALPRAZolam (*CRX) 0.5 MG TABLET PO (21:04)
[2024-01-10] MEDS: TIMOLOL MALEATE 0.5% OP SOLN 5 ML BOTTLE 2 DROP EACH EYE (21:10)
[2024-01-10] MEDS: DIVALPROEX SODIUM DR 250 MG TABEC 500 MG PO (21:10)
[2024-01-10] MEDS: GABAPENTIN 100 MG CAPSULE PO (21:11)
[2024-01-10 21:39] LABS: Glucose Point of Care 169 mg/dl (65-105)
[2024-01-10 22:53] LABS: MRSA (PCR) NOT DETECTED (NOT DETECTE)
[2024-01-11] VITALS (10 sets, daily range): BP systolic 107–115; BP diastolic 63–68; PULSE 65–78; RESP 16–18; TEMP 36.5–36.6; O2SAT 92–98
[2024-01-11] MEDS: HYDROmorphone HCL INJ (*CRX) 1 MG/ML SYR 0.5 MG IV PUSH ×4 (03:00→08:50)
[2024-01-11 05:15] LABS: Hematocrit 36.1 % (37.0-47.0); Hemoglobin 11.5 g/dL (12.0-15.0); Mean Corpuscular HGB Conc 31.9 g/dl (32-36); Mean Corpuscular Hemoglobin 33.3 pg (26-34); Mean Corpuscular Volume 104.6 fl (80-100); Mean Platelet Volume 9.4 fl (7.4-10.4); Platelet Count Result 138 k/mm3 (150-375); Red Blood Count 3.45 M/mm3 (4.2-5.4); Red Cell Distribution Width 14.8 % (11.5-14.5); White Blood Count 7.7 K/mm3 (4.5-10.0)
[2024-01-11 05:32] LABS: Anion Gap 5 mmol/L (4-12); Blood Urea Nitrogen 10 mg/dL (7-17); CRP 1.4 mg/dL (<1.0); Calcium 8.2 mg/dL (8.4-10.2); Carbon Dioxide 31 mmol/L (22-30); Chloride 100 mmol/L (98-107); Estimated CRCL calculation 66 ml/min; Estimated Glomerular Filt Rate > 60; Glucose 142 mg/dL (65-110); Magnesium 1.7 mg/dL (1.6-2.3); Potassium 3.7 mmol/L (3.4-5.0); Sodium 136 mmol/L (137-145)
[2024-01-11 05:44] LABS: Procalcitonin 0.1 ng/mL
[2024-01-11] MEDS: GABAPENTIN 100 MG CAPSULE PO ×2 (06:00→13:36)
[2024-01-11] MEDS: DIVALPROEX SODIUM DR 250 MG TABEC 500 MG PO ×2 (06:00→13:36)
[2024-01-11] MEDS: FLUTICASONE/SALMETEROL 115-21 MCG INHALER 1 PUFF 2 PUFF INHALATION (07:30)
--- NOTE | 2024-01-11 07:37 | PM.IMPN ---
Progress Note: A&P Assessment and Plan (1) Acute respiratory failure with hypoxia: Code(s): J96.01 - Acute respiratory failure with hypoxia Status: Acute Assessment and Plan: SpO2 83% on arrival requiring oxygen supplementation of 5L NC. - Now on 1L O2 supplementation - Oxygen via NC; wean as tolerated. Keep SpO2 greater than 90% (2) Volume overload: Code(s): E87.70 - Fluid overload, unspecified Status: Acute Assessment and Plan: - Symptoms: significant pedal and jonathan ankle edema, pulmonary edema - BNP: 3100 - EKG: sinus rhythm - Chest XR: Diffuse bilateral airspace disease may represent edema or pneumonia. - Echo 01/10: LVEF 65-70% with grade 1 diastolic dysfunction - Lasix 20 mg IV BID. Patient will likely need to be discharged home on p.o. Lasix. - Monitor vital signs, I&Os, BUN/creatinine, daily weights, neuro status and patient is a fall risk - Monitor serum electrolytes, Keep serum Potassium>4 and serum Magnesium>2 and CBC (3) Pneumonia: Code(s): J18.9 - Pneumonia, unspecified organism Status: Acute Assessment and Plan: Chest XR: Diffuse bilateral airspace disease may represent edema or pneumonia. - Risk Factors: recent hospitalization - started on CAP tx: azithromycin and ceftriaxone on 01/09, ceftriaxone broadened to cefepime due to recent hospitalization - MRSA negative, no need for vancomycin - Viral PCR: negative for Flu/COVID/RSV - Send sputum cultures - no supplemental O2 requirement - Monitor vital signs, I&Os, neuro status and patient is a fall risk - Follow WBC, serum electrolytes, temperature curves and cultures - Oxygen via NC; wean as tolerated. Keep SpO2 greater than 88% - Gentle IV fluid resuscitation (4) Type 1 diabetes mellitus: Code(s): E10.9 - Type 1 diabetes mellitus without complications Status: Acute Assessment and Plan: - hypoglycemia protocol - POC blood glucose ACHS - home medication - Lantus 20 units daily - correct regimen ordered - continue home medication and start low dose SSI TIDWM - A1C 12/23/23: 8 (5) Diabetic gastroparesis: Code(s): E11.43 - Type 2 diabetes mellitus with diabetic autonomic (poly)neuropathy; K31.84 - Gastroparesis Status: Acute Assessment and Plan: Her GI symptoms are similar to those that she unfortunately has been experiencing frequently. She believes these symptoms are due to gastroparesis however it is unclear if she has been fully evaluated for that. She has an appointment with Dr. Gibsno on January 19. Continue supportive care in the interim. - Started on reglan q6 - Monitor (6) Chronic obstructive pulmonary disease: Code(s): J44.9 - Chronic obstructive pulmonary disease, unspecified Status: Acute Assessment and Plan: Chronic, not in acute exacerbation. (7) Hypertension: Code(s): I10 - Essential (primary) hypertension Status: Acute Assessment and Plan: Chronic, stable on home medications. - Amlodipine 5 mg BID - Coreg 6.25 mg BID (8) Kidney transplant recipient: Code(s): Z94.0 - Kidney transplant status Status: Acute Assessment and Plan: Continue anti-rejection medications Imuran, Prednisone, Tacrolimus Follow Time Spent With Patient Time with patient: 25 - 35 minutes Subjective Date/time seen: 01/11/24 07:37 Interval history: 48-year-old female with type 1 diabetes mellitus, diabetic nephropathy status post kidney transplant, gastroparesis, chronic obstructive pulmonary disease, hypertension, hyperlipidemia, and anxiety who presented to the emergency department via private vehicle for evaluation of fever, nausea, and vomiting. Patient is pleasant sitting on side of the bed. She is no longer complaining of shortness of breath however she remains on oxygen supplementation at this time. This continues to be weaned by nursing to maintain an SpO2 greater than 90%. Due to patient's recent
[2024-01-11 08:29] LABS: Glucose Point of Care 147 mg/dl (65-105)
[2024-01-11] MEDS: CYANOCOBALAMIN 1,000 MCG TABLET 1000 MCG PO (08:48)
[2024-01-11] MEDS: ATORVASTATIN 20 MG TABLET PO (08:48)
[2024-01-11] MEDS: AZITHROMYCIN 250 MG TABLET PO (08:48)
[2024-01-11] MEDS: predniSONE 5 MG TABLET PO (08:48)
[2024-01-11] MEDS: ASPIRIN 81 MG ENTERIC TABLET PO (08:48)
[2024-01-11] MEDS: SERTRALINE HCL 50 MG TABLET PO (08:48)
[2024-01-11] MEDS: amLODIPine BESYLATE 5 MG TABLET PO (08:49)
[2024-01-11] MEDS: CHOLECALCIFEROL 1,000 UNITS TABLET 2000 UNITS PO (08:49)
[2024-01-11] MEDS: carvediloL 6.25 MG TABLET PO (08:49)
[2024-01-11] MEDS: PANTOPRAZOLE 40 MG TABLET PO (08:49)
[2024-01-11] MEDS: azaTHIOprine 50 MG TABLET PO (08:49)
[2024-01-11] MEDS: MONTELUKAST SODIUM 10 MG TABLET PO (08:49)
[2024-01-11] MEDS: FUROSEMIDE INJ 40 MG/4 ML VIAL 20 MG IV PUSH (08:51)
[2024-01-11] MEDS: ENOXAPARIN 40 MG/0.4 ML SYRINGE SUB-Q (08:51)
[2024-01-11] MEDS: ALPRAZolam (*CRX) 0.5 MG TABLET PO ×2 (08:55→16:49)
[2024-01-11] MEDS: INSULIN GLARGINE (*BKC) 100 UNITS/ML 20 UNITS SUB-Q (09:11)
[2024-01-11] MEDS: CEFEPIME 2 GM/NS 50 ML 2 GM/50 ML BAG IVPB (09:11)
[2024-01-11] MEDS: TIMOLOL MALEATE 0.5% OP SOLN 5 ML BOTTLE 2 DROP EACH EYE ×2 (09:14→17:07)
[2024-01-11] MEDS: traMADol HCL (*CRX) 50 MG TABLET 100 MG PO ×2 (10:41→16:48)
[2024-01-11] MEDS: LIDOCAINE HCL 1% LOCAL INJ 2 ML AMPUL 5 ML INFILTRATE (11:20)
--- NOTE | 2024-01-11 11:58 | PHAR ---
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 WHITE OVAL TAB WITH 1 ON ONE SIDE AND TCS ON THE OTHER. VERIFIED BY PHARMACY.
[2024-01-11 12:13] LABS: Glucose Point of Care 226 mg/dl (65-105)
[2024-01-11] MEDS: INSULIN ASPART (*BKC) 100 UNITS/ML SUB-Q (12:17)
[2024-01-11] MEDS: SALINE LOCK FLUSH 10 ML IV PUSH (13:36)
--- NOTE | 2024-01-11 16:21 | ECHO_ITS ---
Patient Info Name: Juaquin Rey Age: 48 years : 1975 Gender: Female Ht: 62 in Wt: 146 lbs BSA: 1.72 m2 HR: 70 bpm BP: 115 / 63 mmHg Technical Quality: Good Exam Date: 01/11/2024 8:00 AM Exam Location: Echo Lab Patient Status: Inpatient Admit Date: 01/10/2024 Staff Ordering Physician: Denise Romero PA-C Pc Maintenance Technician: Michael Lester RDCS Attending Provider: Mar Shipley PA-C Referring Physician: Heather HUNT; Exam Type: CA echo doppler color flow Study Info Indications - COPD - hypoxia - pulmonary edema - elevated BNP Complete two-dimensional, color flow and Doppler transthoracic echocardiogram is performed. Summary 1. Complete two-dimensional, color flow and Doppler transthoracic echocardiogram is performed. 2. Left ventricular chamber dimension is normal. 3. There is moderate concentric increased left ventricular wall thickness. 4. Left ventricular systolic function is normal, estimated at 65-70%. 5. The left ventricular diastolic function is grade I diastolic dysfunction. 6. Right ventricular chamber dimension is normal. 7. Right ventricular systolic function is normal. 8. There is mild mitral valve regurgitation. Left Ventricle Left ventricular chamber dimension is normal. Left ventricular systolic function is normal, estimated at 65-70%. There is moderate concentric increased left ventricular wall thickness. Left ventricular septal wall motion is normal. The left ventricular diastolic function is grade I diastolic dysfunction. Right Ventricle Right ventricular chamber dimension is normal. Right ventricular systolic function is normal. Left Atria Left atrial chamber dimension is mildly enlarged. Right Atria Right atrial chamber dimension is normal. Aortic Valve The aortic valve is trileaflet. There is no aortic valve sclerosis. There is no aortic valve stenosis. There is no aortic valve regurgitation. Pulmonic Valve The pulmonic valve is not well visualized. Mitral Valve The mitral valve has normal leaflets. There is no mitral valve stenosis. There is mild mitral valve regurgitation. Tricuspid Valve The tricuspid valve leaflets are normal. There is no significant tricuspid valve stenosis. There is no tricuspid valve regurgitation. Pericardium/Pleural The pericardium appears normal. There is no pericardial effusion. Inferior Vena Cava Normal inferior vena cava with >50% collapse upon inspiration consistent with Empty right atrial pressure, Empty. Aorta The aortic root size at the sinus of Valsalva is normal. The prox ascending aorta size is normal. Left Ventricular Outflow Tract Name Value Normal LVOT 2D LVOT Diameter 1.9 cm LVOT Doppler LVOT Peak Gradient 5 mmHg LVOT Mean Gradient 3 mmHg LVOT VTI 26 cm LVOT VTI/AV VTI Ratio 0.9 LVOT Stroke Volume 75 ml LVOT CO 5.0 l/min LVOT CI 2.9 l/min/m2 Pulmonic Valve Name
[2024-01-11 17:01] LABS: Glucose Point of Care 113 mg/dl (65-105)
--- NOTE | 2024-01-11 17:18 | PC.NURSE ---
Pt stated that if we will not control her pain that she will just leave. Called JHONATAN Leos to update. Dafne spoke with the pt and pt ultimately decided she wanted to leave AMA. Midline removed.
--- NOTE | 2024-01-12 06:52 | PM.DS ---
DS: Admitting Diagnosis Discharge Date 01/11/24 Admitting Diagnosis Acute respiratory failure with hypoxia Volume overload Pneumonia Diabetes type I Gastroparesis COPD Hypertension Kidney transplant DS: Discharge Diagnosis Discharge Diagnosis (1) Acute respiratory failure with hypoxia: Code(s): J96.01 - Acute respiratory failure with hypoxia Status: Acute (2) Volume overload: Code(s): E87.70 - Fluid overload, unspecified Status: Acute (3) Pneumonia: Code(s): J18.9 - Pneumonia, unspecified organism Status: Acute (4) Type 1 diabetes mellitus: Code(s): E10.9 - Type 1 diabetes mellitus without complications Status: Acute (5) Diabetic gastroparesis: Code(s): E11.43 - Type 2 diabetes mellitus with diabetic autonomic (poly)neuropathy; K31.84 - Gastroparesis Status: Acute (6) Chronic obstructive pulmonary disease: Code(s): J44.9 - Chronic obstructive pulmonary disease, unspecified Status: Acute (7) Hypertension: Code(s): I10 - Essential (primary) hypertension Status: Acute (8) Kidney transplant recipient: Code(s): Z94.0 - Kidney transplant status Status: Acute DS: Summary Hospital Course Reason for hospitalization: Acute respiratory failure with hypoxia Volume overload Pneumonia Diabetes type I Gastroparesis COPD Hypertension Kidney transplant Hospital Course: Patient admitted to the hospital for shortness of breath, lower extremity swelling and new oxygen requirement. She was diagnosed with pneumonia and started on hospital acquired pneumonia treatment as patient was recently hospitalized and is immunocompromised. An echo was performed and showed LVEF 65-70% with grade I diastolic dysfunction. Patient was started on IV lasix. Patient self removed oxygen supplementation prior to leaving and vital signs remained stable. Patient left AMA. Prior to leaving discussed in depth the risks up to and including by patient leaving AMA. She states understanding. Oral antibiotics sent to patients pharmacy to complete antibiotic course for pneumonia. Also sent PO lasix as patient found to have grade I diastolic dysfunction on echo and continues to have BLE edema. Discussed wtih her that I will give her a short course but this medication will have to be refilled by her primary care provider. She states understanding and notes that she has an appointment with her PCP on 01/21. Status at Discharge Functional status at discharge: independent ambulation Time Spent with Patient Time attestation: Total time spent providing and/or coordinating discharge services: Time spent: Greater than 30 minutes Exam Narrative: AF HR 90 RR 18 SpO2 92 1L NC BP 115/63 General: well nourished, well-developed female in no acute respiratory distress who is nontoxic appearing, sitting on side of bed HEENT: Normocephalic. Atraumatic. Pupils equal round reactive to light. Extraocular movement intact. Sclera clear and anicteric. No facial asymmetry. Neck: Neck was supple. No dominant adenopathy, thyromegaly or masses. 2+ carotid upstrokes without bruits. Chest: Lungs are coarse to auscultation bilaterally. No wheezes or crackles. CV: Heart was regular rate and rhythm. S1-S2. No murmurs, gallops, or rubs. Abd: Abdomen was soft. Nontender. Nondistended. Positive bowel sounds. No organomegaly or masses. Ext: No clubbing, cyanosis. 2+ DP pulses bilaterally. 2+ pitting edema bilateral feet with 1+ pitting edema extending to the knees. Neuro: Patient is alert and oriented x4. Cranial nerves 2-12 are intact. Speech is clear. Psych: Normal mood and affect. Patient is pleasant and cooperative. Skin: Warm and dry. No rashes noted. DS: Data Data Completed and Pending Completed studies during hospitalization: Chest XR Labs on day of discharge: Labs from last 24 hours 01/11/24 01/11/24 01/11/24 16:57 12:11 08:26 POC Capillary Glucose 113 H 226 H 14
[2024-01-15 18:38] LABS: Pneumococcal Antigen Urine NOT DETECTED
[2024-01-15 20:23] LABS: Legionella pneumophila Ag Ur NOT DETECTED
[2024-01-19 22:43] LABS: Mycoplasma IgM Antibody Titer 152 U/mL
== END 2024-01-11 17:29 | disposition left against medical advice (07) | DRG 193 ==
LOC: ANHED 16:00 → ANH2MED 17:30
PROVIDERS: Emergency Medicine; Physician Assistant; Student in an Organized Health Care Education/Training Program; Admitting Provider Internal Medicine; Emergency Provider Emergency Medicine; PCP Internal Medicine; Visit Provider Internal Medicine
DX: J18.9 Pneumonia, unspecified organism (principal); J96.01 Acute respiratory failure with hypoxia; D84.9 Immunodeficiency, unspecified; J44.0 Chronic obstructive pulmonary disease with (acute) lower respiratory infection; Z94.0 Kidney transplant status; E10.43 Type 1 diabetes mellitus with diabetic autonomic (poly)neuropathy; K31.84 Gastroparesis; E78.5 Hyperlipidemia, unspecified; F41.9 Anxiety disorder, unspecified; I10 Essential (primary) hypertension; Z79.82 Long term (current) use of aspirin; Z79.4 Long term (current) use of insulin; Z90.49 Acquired absence of other specified parts of digestive tract; Z90.710 Acquired absence of both cervix and uterus; Z90.5 Acquired absence of kidney; Z87.891 Personal history of nicotine dependence; Z20.822 Contact with and (suspected) exposure to COVID-19
CPT/HCPCS: 36415; 36569; 71046; 80048; 80053; 81003; 82948; 83605; 83690; 83735; 83880; 84145; 85025; 85027; 86140; 86738; 87040; 87070; 87205; 87449; 87637; 87641; 87899; 93005; 93306; 94640; 96361; 96365; 96367; 96372; 96375; 96376; 99285; A9270; G0378; J0456; J0500; J0692; J0696; J1170; J1650; J1815; J1940; J2550; J3010; J7030; J7512

== ENCOUNTER 2024-02-11 08:59 | Outpatient (CLI) | payer MEDICARE, SELFPAY ==
--- NOTE | ~2024-02-11 | NM_ITS ---
EXAM: NM gastric emptying study DATE: 02/11/2024 14:10 INDICATION: Nausea with vomiting TECHNIQUE: A gastric emptying study was performed using the methodology of Raquel CHOW, et al. J Nucl Med 2007; 48:568-572. The patient was given a meal consisting of 2 scrambled eggs labeled with 0.996 mCi Tc-99m sulfur colloid, 2 slices of toast, two packages of jam, and approximately 120 mL of water . Simultaneous anterior and posterior 1-min images of the abdomen were obtained with the patient supi ne at multiple time points over a total period of 4 hours. The geometric mean of anterior and posteri or views was determined, and the percentage retention was calculated for each time point. COMPARISON: None. FINDINGS: Gastric retention of the radiotracer-labeled meal was 77%, 6%, and 4% at the 1-hour, 2-hour, and 4-ho ur time points, respectively. With this technique, apparent rapid gastric emptying is suggested by <3 0% gastric retention at 1 hour. Delayed gastric emptying is defined by gastric retention of >90% at 1 hour, >60% retention at 2 hours, or >10% retention at 4 hours. IMPRESSION: 1. Normal gastric emptying. Reviewed, dictated and finalized at location A. IMPRESSION: 1. Normal gastric emptying.
== END 2024-02-11 09:00 | disposition home or self-care (01) ==
PROVIDERS: PCP Internal Medicine; Visit Provider Nurse Practitioner Family
DX: R11.2 Nausea with vomiting, unspecified (principal); R63.0 Anorexia; R68.81 Early satiety; R63.4 Abnormal weight loss
CPT/HCPCS: 78264; A9541

== ENCOUNTER 2024-04-09 13:49 | Emergency (ER) | payer MEDICARE, SELFPAY ==
--- NOTE | ~2024-04-09 | CT_ITS ---
CT abdomen pelvis w con Ordering provider: Francheska Siu MD History: 49 years Female with . RLQ pain, vomiting . Comparison: The 2023 Technique: CT abdomen and pelvis with IV and without oral contrast. Automated exposure control and it erative reconstruction technique were employed. The dose-length product was 404.55 mGy-cm. 100 mL Omn ipaque 350 was given IV. Findings: VISUALIZED LOWER CHEST: Normal. UPPER ABDOMINAL ORGANS: Liver: Normal. Gallbladder: Normal. Spleen: Normal. Stomach/duodenum: Thickened wall of the hilar mass which may indicate gastritis. Moderate sliding hia tus hernia. Pancreas: Atrophic Adrenals: Normal. Kidneys: Absent right wainwright kidney. Small size left kidney right pelvic transplanted kidney is noted PELVIC ORGANS: The bladder is normal. Multiple cysts are seen in the right ovary the largest measure s 1.9 CNM. BOWEL AND MESENTERY: Colon: No evidence of diverticulitis. Slightly thickened wall of the rectum. Evaluation clinically fo r proctitis is advised. Appendix is not demonstrated. Small Bowel: Normal. No obstruction. Peritoneum/mesentery: No free air or free fluid. No mesenteric lymphadenopathy. RETROPERITONEUM: Mild atheromatous disease of the abdominal aorta. No retroperitoneal lymphadenopat hy. MUSCULOSKELETAL: Superficial soft tissues: The superficial soft tissues are normal. Bones: Age appropriate degenerative changes of the spine. Hypodensity in the inferior endplate of T12 . This may be degenerative. Follow-up advised IMPRESSION: 1. No evidence of appendicitis, diverticulitis or intestinal obstruction. 2. Absent right wainwright kidney with atrophic left. Normal right transplanted pelvic kidney. 3. Multiple right ovarian cysts. 4. Thickened wall of the rectum which may indicate proctitis. Clinical evaluation advised. 5. Thickened wall of the pylorus which may indicate gastritis. Reviewed, dictated and finalized at location A. IMPRESSION: 1. No evidence of appendicitis, diverticulitis or intestinal obstruction. 2. Absent right wainwright kidney with atrophic left. Normal right transplanted pe lvic kidney. 3. Multiple right ovarian cysts. 4. Thickened wall of the rectum which may indicate proctitis. Clinical evaluat ion advised. 5. Thickened wall of the pylorus which may indicate gastritis.
[2024-04-09 14:06] VITALS: BP 186/101; PULSE 85; RESP 20; TEMP 36.4; O2SAT 100
[2024-04-09 16:07] LABS: Basophils Absolute Auto 0.1 K/mm3 (0.0-0.1); Basophils Percent Auto 0.9 % (0.2-1.2); Eosinophils Absolute Auto 0.9 K/mm3 (0-0.3); Eosinophils Percent Auto 7.1 % (0-4.4); Hematocrit 43.1 % (37.0-47.0); Immature Granulocyte Absolute 0.05 K/mm3 (0.00-0.031); Immature Granulocyte Percent A 0.4 % (0-0.5); Lymphocytes Absolute Auto 1.92 K/mm3 (0.9-3.2); Mean Corpuscular HGB Conc 34.8 g/dl (32-36); Mean Corpuscular Hemoglobin 34.2 pg (26-34); Mean Corpuscular Volume 98.2 fl (80-100); Mean Platelet Volume 9.8 fl (7.4-10.4); Monocytes Absolute Auto 0.9 K/mm3 (0.1-0.6); Monocytes Percent Auto 7.3 % (2.6-8.5); Neutrophils Absolute Auto 8.9 K/mm3 (1.3-6.7); Neutrophils Percent Auto 69.3 % (45.5-73.1); Platelet Count Result 187 k/mm3 (150-375); Red Blood Count 4.39 M/mm3 (4.2-5.4); Red Cell Distribution Width 13.1 % (11.5-14.5); White Blood Count 12.8 K/mm3 (4.5-10.0)
[2024-04-09] MEDS: PROCHLORPERAZINE EDISYLATE 10 MG/2 ML VIAL IV PUSH (16:13)
[2024-04-09] MEDS: fentaNYL CITRATE INJ (*CRX) 100 MCG/2 ML VIAL 50 MCG IV PUSH (16:14)
[2024-04-09 16:16] LABS: Alanine Aminotransferase 9 U/L (6-35); Albumin Level 4.5 g/dL (3.5-5.1); Alkaline Phosphatase 74 U/L (38-126); Anion Gap 8 mmol/L (4-12); Aspartate Amino Transferase 23 U/L (14-36); Bilirubin,Total 0.7 mg/dL (0.2-1.3); Blood Urea Nitrogen 21 mg/dL (7-17); Calcium 9.3 mg/dL (8.4-10.2); Carbon Dioxide 34 mmol/L (22-30); Chloride 95 mmol/L (98-107); Estimated CRCL calculation 66 ml/min; Estimated Glomerular Filt Rate > 60; Glucose 263 mg/dL (65-110); Potassium 3.6 mmol/L (3.4-5.0); Sodium 137 mmol/L (137-145)
[2024-04-09] MEDS: SODIUM CHLORIDE 0.9% IV 1,000 ML 999 ML IV CONT ×2 (16:16→18:26)
[2024-04-09 16:19] LABS: Lipase < 10 U/L (23-300)
--- NOTE | 2024-04-09 16:33 | ED.NAVMDI ---
HPI - Nausea/Vomiting/Diarrhea General Chief complaint: Nausea/Vomiting/Diarrhea Stated complaint: vomiting and diarrhea Time Seen by Provider: 04/09/24 15:35 History of Present Illness HPI Narrative: Patient is a 49-year-old female with a history of renal transplant, pancreatic insufficiency presenting with diarrhea and vomiting. States that it started around 9:00 a.m. this morning. States that she has been able to keep anything down. States that this has happened in the past and she has been told that it is related to her pancreatic insufficiency. States that Compazine usually helps. She also complains of diffuse abdominal pain. No fevers or chills. No further complaints. Related Data Home Medications Medication Instructions Recorded Confirmed aspirin 81 mg tablet,delayed 81 mg PO DAILY 08/30/20 03/19/24 release (Adult Aspirin Regimen) azathioprine 50 mg tablet 50 mg PO DAILY 08/30/20 03/19/24 omeprazole 20 mg capsule,delayed 20 mg PO DAILY 08/30/20 03/19/24 release zolpidem 10 mg tablet (Ambien) 10 mg PO HS 08/30/20 03/19/24 amlodipine 5 mg tablet 5 mg PO BID 12/22/23 03/19/24 atorvastatin 20 mg tablet 20 mg PO DAILY 12/22/23 03/19/24 biotin 5 mg tablet 5 mg PO HS 12/22/23 03/19/24 cholecalciferol (vitamin D3) 50 50 mcg PO DAILY 12/22/23 03/19/24 mcg (2,000 unit) tablet (Vitamin D3) cyanocobalamin (vitamin B-12) 500 1,000 mcg PO DAILY 12/22/23 03/19/24 mcg tablet epinephrine 0.3 mg/0.3 mL 0.3 mg IM Q5-15M PRN Anaphylaxis 12/22/23 03/19/24 injection, auto-injector flash glucose sensor (FreeStyle 12/22/23 03/19/24 Lynda 14 Day Sensor kit) fluticasone furoate 100 1 inh inhalation DAILY 12/22/23 03/19/24 mcg-vilanterol 25 mcg/dose inhalation powder (Breo Ellipta) gabapentin 100 mg capsule 100 mg PO TID 12/22/23 03/19/24 insulin glargine U-300 conc 300 20 unit subcut DAILY 12/22/23 03/19/24 unit/mL (1.5 mL) subcutaneous pen ([employer] SoloStar U-300 Insulin) montelukast 10 mg tablet 10 mg PO DAILY 12/22/23 03/19/24 pen needle, diabetic 31 gauge x 12/22/23 03/19/2410/11 (BD Ultra-Fine Mini Pen Needle) sertraline 50 mg tablet 50 mg PO DAILY 12/22/23 03/19/24 tramadol 50 mg tablet 100 mg PO Q6H PRN Pain 12/22/23 03/19/24 alprazolam 0.5 mg tablet 0.5 mg PO TID PRN Anxiety 01/10/24 03/19/24 carvedilol 6.25 mg tablet (Coreg) 6.25 mg PO BIDWM 01/10/24 03/19/24 divalproex 500 mg tablet,delayed 500 mg PO TID 01/10/24 03/19/24 release prednisone 5 mg tablet 5 mg PO DAILY 01/10/24 03/19/24 tacrolimus 1 mg tablet,extended 3 mg PO DAILY 01/10/24 03/19/24 release 24 hr (Envarsus XR) timolol maleate 0.5 % eye drops 2 drp EACH EYE BID 01/10/24 03/19/24 Allergies Allergy/AdvReac Type Severity Reaction Status Date / Time cyclobenzaprine Allergy Unknown Hives / Verified 04/09/24 13:50 Red Face tetracycline Allergy Unknown Nausea and Verified 04/09/24 13:50 Vomiting acetaminophen [From Tylenol] Allergy Nausea and Verified 04/09/24 13:50 Vomiting morphine AdvReac Itching Verified 04/09/24 13:50 Review of Systems Review of Systems: All systems reviewed & are unremarkable except as noted in HPI and below PMFSH Past Medical History Medical History Chronic obstructive pulmonary disease Diabetic gastroparesis Diabetic nephropathy Hypertension MRSA infection Type 1 diabetes mellitus Surgical History Surgical History History of appendectomy (02/2019) History of benign breast biopsy History of hysterectomy History of kidney transplant History of right nephrectomy Secondary to suspicious mass which turned out to be noncancerous. Family History Family History Grandparent Diabetes mellitus Grandparent Hypertension Social History Social History
[2024-04-09 16:44] LABS: Add Urine Microscopic? YES; Appearance Urine Cloudy (Clear); Bacteria Urine 1+ /hpf; Bilirubin Urine Negative (Negative); Blood Urine Non-Hemolyzed Trace (Negative); Color Urine Yellow (Yellow); Glucose Urine UA 2+ mg/dL (Negative); Ketones Urine 2+ mg/dL (Negative); Leukocyte Esterase Ur Negative LEU/UL (Negative); Nitrate Urine Negative (Negative); Non Pathogenic Casts 0-2; Protein Urine Trace mg/dL (Negative); Specific Grav Ur 1.019 (1.001-1.035); Squamous Epithelial Cell Urine Occasional /hpf (Few); Urobilinogen Urine 0.2 mg/dL (<2.0); WBC Urine 0-5 /hpf (0-3); pH Urine 8.5 (5.0-9.0)
[2024-04-09 17:01] VITALS: BP 200/125; PULSE 93; RESP 14
[2024-04-09 17:48] VITALS: BP 197/103; PULSE 86; RESP 12; O2SAT 99
[2024-04-09] MEDS: fentaNYL CITRATE INJ (*CRX) 100 MCG/2 ML VIAL IV PUSH (17:48)
[2024-04-09] MEDS: PROCHLORPERAZINE EDISYLATE 10 MG/2 ML VIAL 5 MG IV PUSH (17:48)
[2024-04-09] MEDS: cefTRIAXone 2 GM/NS 100 ML 2 GM/100 ML BAG IVPB (17:49)
[2024-04-09 18:30] VITALS: BP 152/90; PULSE 81; RESP 14; O2SAT 97
[2024-04-09 19:01] VITALS: BP 155/83; PULSE 92; RESP 19; O2SAT 99
[2024-04-09 20:31] VITALS: BP 161/98; PULSE 82; RESP 20; TEMP 36.6; O2SAT 98
[2024-04-09] MEDS: ONDANSETRON HCL ODT 4 MG TABLET PO (21:26)
[2024-04-09] MEDS: oxyCODONE HCL (*CRX) 5 MG TAB IR PO (21:27)
== END 2024-04-09 21:37 | disposition home or self-care (01) ==
PROVIDERS: Emergency Provider Emergency Medicine; PCP Internal Medicine
DX: N39.0 Urinary tract infection, site not specified (principal); R11.2 Nausea with vomiting, unspecified; I10 Essential (primary) hypertension; E10.43 Type 1 diabetes mellitus with diabetic autonomic (poly)neuropathy; K31.84 Gastroparesis; E10.21 Type 1 diabetes mellitus with diabetic nephropathy; J44.9 Chronic obstructive pulmonary disease, unspecified; K86.89 Other specified diseases of pancreas; Z94.0 Kidney transplant status; Z86.14 Personal history of Methicillin resistant Staphylococcus aureus infection; Z90.710 Acquired absence of both cervix and uterus; Z90.5 Acquired absence of kidney; Z87.891 Personal history of nicotine dependence; Z79.82 Long term (current) use of aspirin; Z79.899 Other long term (current) drug therapy; Z79.4 Long term (current) use of insulin; Z79.1 Long term (current) use of non-steroidal anti-inflammatories (NSAID); R93.3 Abnormal findings on diagnostic imaging of other parts of digestive tract; N83.201 Unspecified ovarian cyst, right side
CPT/HCPCS: 36415; 74177; 80053; 81001; 83690; 85025; 96361; 96365; 96375; 96376; 99284; A9270; J0696; J0780; J3010; J7030; Q9967

== ENCOUNTER 2024-04-11 14:03 | Emergency (ER) | payer MEDICARE, SELFPAY ==
[2024-04-11] VITALS (15 sets, daily range): BP systolic 109–211; BP diastolic 69–116; PULSE 77–98; RESP 10–20; TEMP 36.7–36.8; O2SAT 99–100
--- NOTE | ~2024-04-11 | CT_ITS ---
CT abdomen pelvis w con Ordering provider: Freya Saldana MD History: 49 years Female with . abd pain, persistent N/V/D; hx renal tz pancreat . Comparison: April 09, 2024 Technique: CT abdomen and pelvis with IV and without oral contrast. Automated exposure control and it erative reconstruction technique were employed. The dose-length product was 362.44 mGy-cm. 100 mL Omn ipaque 350 was given IV. Findings: VISUALIZED LOWER CHEST: Dependent atelectatic changes. UPPER ABDOMINAL ORGANS: Liver: Focal hypodensity adjacent to the interlobar fissure most likely fat infiltration. Gallbladder: Normal. Spleen: Normal. Stomach/duodenum: Thickened distal esophagus suggestive of esophagitis. Slightly thickened wall of th e stomach which may indicate gastritis. Clinical evaluation advised. Pancreas: Atrophic. Adrenals: Normal. Kidneys: Small size left kidney. Right kidney absent. Transplanted right pelvic kidney is noted. Atro phic lower pole of the transplanted kidney is noted. PELVIC ORGANS: The bladder is normal. BOWEL AND MESENTERY: Colon: No evidence of diverticulitis. Thickened wall of the cecum and ascending colon which may indic ate colitis. Appendix is not demonstrated. Small Bowel: Normal. No obstruction. Peritoneum/mesentery: No free air or free fluid. No mesenteric lymphadenopathy. RETROPERITONEUM: Mild atheromatous disease of the abdominal aorta. No retroperitoneal lymphadenopat hy. Atherosclerotic changes seen in the branches of the celiac artery. Atherosclerotic changes of the superior mesenteric artery slight narrowing. MUSCULOSKELETAL: Superficial soft tissues: The superficial soft tissues are normal. Bones: Age appropriate degenerative changes of the spine. IMPRESSION: 1. Thickened wall of the stomach with slightly thickened lower esophagus which may indicate gastriti s and reflux. Clinical correlation advised. 2. Thickened wall of the ascending colon and cecum which may indicate colitis. Clinical correlation advised. 3. Atrophic left kidney with absent right kidney. Transplanted kidney in the right side of the pelvi s. No stones or hydronephrotic changes. Reviewed, dictated and finalized at location A. IMPRESSION: 1. Thickened wall of the stomach with slightly thickened lower esophagus which may indicate gastritis and reflux. Clinical correlation advised. 2. Thickened wall of the ascending colon and cecum which may indicate colitis. Clinical correlation advised. 3. Atrophic left kidney with absent right kidney. Transplanted kidney in the r ight side of the pelvis. No stones or hydronephrotic changes.
--- NOTE | 2024-04-11 14:54 | ED.NAVMDI ---
HPI - Nausea/Vomiting/Diarrhea General Chief complaint: Nausea/Vomiting/Diarrhea Stated complaint: n/v/d, HTN Time Seen by Provider: 04/11/24 14:42 Source: patient and family Limitations: no limitations History of Present Illness HPI Narrative: Patient presents with concern for nausea, vomiting, and diarrhea. Of note, patient was seen 2 days ago, on 04/09/2024 for the same symptoms. She is also concerned that she is hypertensive. She is postmenopausal. She has a history of a renal transplant performed at [facility] in [place]. For this she is chronically immunosuppressed on tacrolimus and prednisone. Patient's diarrhea has been present for less than 14 days. She states her last bowel movement was diarrheal and occurred yesterday. She denies any fevers. She has been vomiting up Compazine and Zofran and she feels like it is her pancreatitis/ pancreatic insufficiency. She denies any prior complications due to pancreatitis such as abscess or fistula formation although she states this was a relatively new diagnosis within the past several months. She did try to eat some fruit gummies (non marijuana) prior to coming given that she has a history of diabetes mellitus and she was worried about her sugar. she denies vomiting blood. She is on carvedilol for hypertension and states that she took 2 of these tablets today but she denies vomiting them up. Related Data Home Medications Medication Instructions Recorded Confirmed aspirin 81 mg tablet,delayed 81 mg PO DAILY 08/30/20 03/19/24 release (Adult Aspirin Regimen) azathioprine 50 mg tablet 50 mg PO DAILY 08/30/20 03/19/24 omeprazole 20 mg capsule,delayed 20 mg PO DAILY 08/30/20 03/19/24 release zolpidem 10 mg tablet (Ambien) 10 mg PO HS 08/30/20 03/19/24 amlodipine 5 mg tablet 5 mg PO BID 12/22/23 03/19/24 atorvastatin 20 mg tablet 20 mg PO DAILY 12/22/23 03/19/24 biotin 5 mg tablet 5 mg PO HS 12/22/23 03/19/24 cholecalciferol (vitamin D3) 50 50 mcg PO DAILY 12/22/23 03/19/24 mcg (2,000 unit) tablet (Vitamin D3) cyanocobalamin (vitamin B-12) 500 1,000 mcg PO DAILY 12/22/23 03/19/24 mcg tablet epinephrine 0.3 mg/0.3 mL 0.3 mg IM Q5-15M PRN Anaphylaxis 12/22/23 03/19/24 injection, auto-injector flash glucose sensor (FreeStyle 12/22/23 03/19/24 Lynda 14 Day Sensor kit) fluticasone furoate 100 1 inh inhalation DAILY 12/22/23 03/19/24 mcg-vilanterol 25 mcg/dose inhalation powder (Breo Ellipta) gabapentin 100 mg capsule 100 mg PO TID 12/22/23 03/19/24 insulin glargine U-300 conc 300 20 unit subcut DAILY 12/22/23 03/19/24 unit/mL (1.5 mL) subcutaneous pen ([employer] SoloStar U-300 Insulin) montelukast 10 mg tablet 10 mg PO DAILY 12/22/23 03/19/24 pen needle, diabetic 31 gauge x 12/22/23 03/19/2416 (BD Ultra-Fine Mini Pen Needle) sertraline 50 mg tablet 50 mg PO DAILY 12/22/23 03/19/24 tramadol 50 mg tablet 100 mg PO Q6H PRN Pain 12/22/23 03/19/24 alprazolam 0.5 mg tablet 0.5 mg PO TID PRN Anxiety 01/10/24 03/19/24 carvedilol 6.25 mg tablet (Coreg) 6.25 mg PO BIDWM 01/10/24 03/19/24 divalproex 500 mg tablet,delayed 500 mg PO TID 01/10/24 03/19/24 release prednisone 5 mg tablet 5 mg PO DAILY 01/10/24 03/19/24 tacrolimus 1 mg tablet,extended 3 mg PO DAILY 01/10/24 03/19/24 release 24 hr (Envarsus XR) timolol maleate 0.5 % eye drops 2 drp EACH EYE BID 01/10/24 03/19/24 Allergies Allergy/AdvReac Type Severity Reaction Status Date / Time cyclobenzaprine Allergy Unknown Hives / Verified 04/09/24 13:50 Red Face tetracycline Allergy Unknown Nausea and Verified 04/09/24 13:50 Vomiting acetaminophen [From Tylenol] Allergy Nausea and Verified 04/09/24 13:50 Vomiting morphine AdvReac Itching Verified 04/09/24 13:50 [facility] Past Medical History Medical History (Updated 04/12/24 @ 08:11 by Freya Saldana MD) Chronic obstructive pulmonary disease Diabetic gastroparesis Diabetic nephropat
[2024-04-11 15:17] LABS: Basophils Absolute Auto 0.1 K/mm3 (0.0-0.1); Basophils Percent Auto 0.8 % (0.2-1.2); Eosinophils Percent Auto 0.3 % (0-4.4); Hematocrit 48.1 % (37.0-47.0); Hemoglobin 16.7 g/dL (12.0-15.0); Immature Granulocyte Absolute 0.06 K/mm3 (0.00-0.031); Immature Granulocyte Percent A 0.5 % (0-0.5); Lymphocytes Absolute Auto 1.55 K/mm3 (0.9-3.2); Lymphocytes Percent Auto 13.6 % (18.3-44.2); Mean Corpuscular HGB Conc 34.7 g/dl (32-36); Mean Corpuscular Hemoglobin 33.4 pg (26-34); Mean Corpuscular Volume 96.2 fl (80-100); Mean Platelet Volume 9.6 fl (7.4-10.4); Monocytes Absolute Auto 0.4 K/mm3 (0.1-0.6); Monocytes Percent Auto 3.9 % (2.6-8.5); Neutrophils Absolute Auto 9.2 K/mm3 (1.3-6.7); Neutrophils Percent Auto 80.9 % (45.5-73.1); Platelet Count Result 230 k/mm3 (150-375); Red Cell Distribution Width 13.1 % (11.5-14.5); White Blood Count 11.4 K/mm3 (4.5-10.0)
[2024-04-11 15:50] LABS: Alanine Aminotransferase 12 U/L (6-35); Albumin Level 4.8 g/dL (3.5-5.1); Alkaline Phosphatase 80 U/L (38-126); Anion Gap 17 mmol/L (4-12); Aspartate Amino Transferase 28 U/L (14-36); Bilirubin,Total 1.1 mg/dL (0.2-1.3); Blood Urea Nitrogen 19 mg/dL (7-17); Calcium 9.3 mg/dL (8.4-10.2); Carbon Dioxide 24 mmol/L (22-30); Chloride 92 mmol/L (98-107); Estimated CRCL calculation 66 ml/min; Estimated Glomerular Filt Rate > 60; Glucose 182 mg/dL (65-110); Potassium 3.5 mmol/L (3.4-5.0); Sodium 133 mmol/L (137-145)
[2024-04-11 15:52] LABS: Influenza A QL RT-PCR Negative (Negative); Influenza B QL RT-PCR Negative (Negative); SARS-CoV-2 RNA PCR Negative (Negative)
[2024-04-11 15:55] LABS: Lipase < 10 U/L (23-300)
[2024-04-11 16:01] LABS: Magnesium 1.3 mg/dL (1.6-2.3)
[2024-04-11] MEDS: SODIUM CHLORIDE 0.9% IV 1,000 ML 999 ML IV CONT (16:18)
[2024-04-11] MEDS: PROCHLORPERAZINE EDISYLATE 10 MG/2 ML VIAL IV PUSH (16:19)
[2024-04-11] MEDS: HYDROmorphone HCL INJ (*CRX) 1 MG/ML SYR 0.5 MG IV PUSH (16:19)
[2024-04-11 17:06] LABS: Beta-Hydroxybutyrate/Acetoacetate 2.51 mmol/L (0.02-0.27)
[2024-04-11] MEDS: MAGNESIUM SULF 1 GM/D5W 100 ML 1 GM/100 ML BAG IVPB (17:38)
[2024-04-11 17:45] LABS: BEDSIDEPREGUCG Negative (Negative)
[2024-04-11] MEDS: PANTOPRAZOLE SODIUM IV 40 MG VIAL IV PUSH (18:21)
[2024-04-11] MEDS: CIPROFLOXACIN 400 MG/D5W 200ML 200 ML 200 MG IVPB (18:22)
[2024-04-11 18:37] LABS: Add Urine Microscopic? YES; Appearance Urine Clear (Clear); Bacteria Urine None Seen /hpf; Bilirubin Urine Negative (Negative); Blood Urine 2+ (Negative); Color Urine Yellow (Yellow); Glucose Urine UA 1+ mg/dL (Negative); Ketones Urine 3+ mg/dL (Negative); Leukocyte Esterase Ur Negative LEU/UL (Negative); Nitrate Urine Negative (Negative); Non Pathogenic Casts 0-2; Protein Urine 2+ mg/dL (Negative); Squamous Epithelial Cell Urine None Seen /hpf (Few); Urobilinogen Urine 0.2 mg/dL (<2.0); WBC Urine 0-5 /hpf (0-3); pH Urine 5.5 (5.0-9.0)
[2024-04-11] MEDS: metroNIDAZOLE 500 MG/ISO 100ML 500 MG/100 ML BAG 100 MG IVPB (18:55)
== END 2024-04-11 20:07 | disposition home or self-care (01) ==
PROVIDERS: Emergency Provider Student in an Organized Health Care Education/Training Program; PCP Internal Medicine
DX: K52.9 Noninfective gastroenteritis and colitis, unspecified (principal); K21.9 Gastro-esophageal reflux disease without esophagitis; E10.65 Type 1 diabetes mellitus with hyperglycemia; E83.42 Hypomagnesemia; D58.2 Other hemoglobinopathies; D72.829 Elevated white blood cell count, unspecified; Z20.822 Contact with and (suspected) exposure to COVID-19; I10 Essential (primary) hypertension; J44.9 Chronic obstructive pulmonary disease, unspecified; E10.21 Type 1 diabetes mellitus with diabetic nephropathy; E10.43 Type 1 diabetes mellitus with diabetic autonomic (poly)neuropathy; K31.84 Gastroparesis; K86.89 Other specified diseases of pancreas; Z94.0 Kidney transplant status; Z86.14 Personal history of Methicillin resistant Staphylococcus aureus infection; Z87.891 Personal history of nicotine dependence; Z90.710 Acquired absence of both cervix and uterus; Z90.5 Acquired absence of kidney; Z79.4 Long term (current) use of insulin; Z79.82 Long term (current) use of aspirin; Z79.899 Other long term (current) drug therapy; N26.1 Atrophy of kidney (terminal)
CPT/HCPCS: 36415; 74177; 80053; 81001; 81025; 82010; 83690; 83735; 85025; 87636; 96361; 96365; 96367; 96375; 99284; J0744; J0780; J1170; J1836; J2470; J3475; J7030; Q9967

== ENCOUNTER 2024-04-13 12:24 | Observation (INO) | payer MEDICARE, SELFPAY ==
[2024-04-13] VITALS (24 sets, daily range): BP systolic 165–212; BP diastolic 88–114; PULSE 98–132; RESP 13–20; TEMP 36.4–37.7; O2SAT 97–100; BMI 25.8
--- NOTE | ~2024-04-13 | XR_ITS ---
EXAMINATION: XR sacrum coccyx min 2V DATE: 04/13/2024 14:11 INDICATION: Sacrococcygeal pain post fall onto concrete pavement. TECHNIQUE: AP view of the sacrum, AP view of the coccyx and lateral view of the sacrum and coccyx wer e obtained. COMPARISON: CT dated 04/11/2024 FINDINGS: Bone alignment is normal. Sacral arches are intact. No fracture. Mild bilateral hip and sacroiliac os teoarthritis. Mild lumbar spondylosis. Multiple phleboliths in the pelvis. IMPRESSION: 1. Mild degenerative skeletal changes. No acute osseous abnormality. Reviewed, dictated and finalized at location B.
[2024-04-13 12:46] LABS: Basophils Absolute Auto 0.1 K/mm3 (0.0-0.1); Basophils Percent Auto 0.7 % (0.2-1.2); Eosinophils Absolute Auto 0.1 K/mm3 (0-0.3); Eosinophils Percent Auto 1.1 % (0-4.4); Hematocrit 47.7 % (37.0-47.0); Hemoglobin 16.6 g/dL (12.0-15.0); Immature Granulocyte Absolute 0.05 K/mm3 (0.00-0.031); Immature Granulocyte Percent A 0.4 % (0-0.5); Lymphocytes Absolute Auto 1.68 K/mm3 (0.9-3.2); Lymphocytes Percent Auto 13.8 % (18.3-44.2); Mean Corpuscular HGB Conc 34.8 g/dl (32-36); Mean Corpuscular Hemoglobin 33.6 pg (26-34); Mean Corpuscular Volume 96.6 fl (80-100); Mean Platelet Volume 9.4 fl (7.4-10.4); Monocytes Absolute Auto 1.2 K/mm3 (0.1-0.6); Monocytes Percent Auto 9.9 % (2.6-8.5); Neutrophils Percent Auto 74.1 % (45.5-73.1); Platelet Count Result 256 k/mm3 (150-375); Red Blood Count 4.94 M/mm3 (4.2-5.4); Red Cell Distribution Width 13.4 % (11.5-14.5); White Blood Count 12.2 K/mm3 (4.5-10.0)
[2024-04-13 12:55] LABS: Add Urine Microscopic? NO; Appearance Urine Clear (Clear); Bilirubin Urine Negative (Negative); Blood Urine Negative (Negative); Color Urine Yellow (Yellow); Glucose Urine UA 3+ mg/dL (Negative); Ketones Urine Negative (Negative); Leukocyte Esterase Ur Negative LEU/UL (Negative); Nitrate Urine Negative (Negative); Protein Urine Negative (Negative); Urobilinogen Urine 0.2 mg/dL (<2.0)
[2024-04-13 12:57] LABS: Alanine Aminotransferase 12 U/L (6-35); Albumin Level 4.8 g/dL (3.5-5.1); Alkaline Phosphatase 78 U/L (38-126); Anion Gap 13 mmol/L (4-12); Aspartate Amino Transferase 27 U/L (14-36); Bilirubin,Total 0.9 mg/dL (0.2-1.3); Blood Urea Nitrogen 15 mg/dL (7-17); Calcium 9.7 mg/dL (8.4-10.2); Carbon Dioxide 30 mmol/L (22-30); Chloride 94 mmol/L (98-107); Estimated Glomerular Filt Rate > 60; Glucose 308 mg/dL (65-110); Potassium 2.9 mmol/L (3.4-5.0); Sodium 137 mmol/L (137-145)
--- NOTE | 2024-04-13 13:14 | ED.GENADULT ---
HPI - General Adult General Chief complaint: Recheck/Abnormal Lab/Rx Stated complaint: high BP Time Seen by Provider: 04/13/24 12:42 History of Present Illness HPI narrative: Patient is a 49-year-old female who presents ER with abdominal pain and nausea vomiting. Recently diagnosed with colitis and started on ciprofloxacin and Flagyl. She also has esophagitis and gastritis according to CT scan. She has not been able to keep down home medications. Denies fevers or chills. Unable quantify the amount of diarrhea or vomiting that she has had. No alleviating factors at home. Patient also reports a slip and fall that occurred last night causing the land on her buttock. She reports as coccygeal pain and like an x-ray. No saddle anesthesia. Related Data Home Medications Medication Instructions Recorded Confirmed aspirin 81 mg tablet,delayed 81 mg PO DAILY 08/30/20 03/19/24 release (Adult Aspirin Regimen) azathioprine 50 mg tablet 50 mg PO DAILY 08/30/20 03/19/24 omeprazole 20 mg capsule,delayed 20 mg PO DAILY 08/30/20 03/19/24 release zolpidem 10 mg tablet (Ambien) 10 mg PO HS 08/30/20 03/19/24 amlodipine 5 mg tablet 5 mg PO BID 12/22/23 03/19/24 atorvastatin 20 mg tablet 20 mg PO DAILY 12/22/23 03/19/24 biotin 5 mg tablet 5 mg PO HS 12/22/23 03/19/24 cholecalciferol (vitamin D3) 50 50 mcg PO DAILY 12/22/23 03/19/24 mcg (2,000 unit) tablet (Vitamin D3) cyanocobalamin (vitamin B-12) 500 1,000 mcg PO DAILY 12/22/23 03/19/24 mcg tablet epinephrine 0.3 mg/0.3 mL 0.3 mg IM Q5-15M PRN Anaphylaxis 12/22/23 03/19/24 injection, auto-injector flash glucose sensor ([employer] 12/22/23 03/19/24 Lynda 14 Day Sensor kit) fluticasone furoate 100 1 inh inhalation DAILY 12/22/23 03/19/24 mcg-vilanterol 25 mcg/dose inhalation powder (Breo Ellipta) gabapentin 100 mg capsule 100 mg PO TID 12/22/23 03/19/24 insulin glargine U-300 conc 300 20 unit subcut DAILY 12/22/23 03/19/24 unit/mL (1.5 mL) subcutaneous pen (Rigoberto Moreno U-300 Insulin) montelukast 10 mg tablet 10 mg PO DAILY 12/22/23 03/19/24 pen needle, diabetic 31 gauge x 12/22/23 03/19/24 3/16 (BD Ultra-Fine Mini Pen Needle) sertraline 50 mg tablet 50 mg PO DAILY 12/22/23 03/19/24 tramadol 50 mg tablet 100 mg PO Q6H PRN Pain 12/22/23 03/19/24 alprazolam 0.5 mg tablet 0.5 mg PO TID PRN Anxiety 01/10/24 03/19/24 carvedilol 6.25 mg tablet (Coreg) 6.25 mg PO BIDWM 01/10/24 03/19/24 divalproex 500 mg tablet,delayed 500 mg PO TID 01/10/24 03/19/24 release prednisone 5 mg tablet 5 mg PO DAILY 01/10/24 03/19/24 tacrolimus 1 mg tablet,extended 3 mg PO DAILY 01/10/24 03/19/24 release 24 hr (Envarsus XR) timolol maleate 0.5 % eye drops 2 drp EACH EYE BID 01/10/24 03/19/24 Allergies Allergy/AdvReac Type Severity Reaction Status Date / Time cyclobenzaprine Allergy Unknown Hives / Verified 04/09/24 13:50 Red Face tetracycline Allergy Unknown Nausea and Verified 04/09/24 13:50 Vomiting acetaminophen [From Tylenol] Allergy Nausea and Verified 04/09/24 13:50 Vomiting morphine AdvReac Itching Verified 04/09/24 13:50 Review of Systems Review of Systems: All systems reviewed & are unremarkable except as noted in HPI and below Constitutional: Constitutional: Denies chills, Reports fatigue, Denies fever(s) and Reports weakness ENT: Reports system reviewed and no additional complaints, except as documented Cardiovascular: Cardiovascular: Reports no additional cardiovascular complaints Respiratory: Respiratory: Reports no additional respiratory complaints Gastrointestinal: Gastrointestinal: Reports abdominal pain, Reports diarrhea, Reports nausea and Reports vomiting Genitourinary: Genitourinary: Reports no additional female genitourinary complaints [facility] Past Medical History Medical History (Updated 04/13/24 @ 16:37 by Christian Malave MD) Chronic obstructive pulmonary disease Diabetic gastroparesis Diabetic nephropathy Hypertension
[2024-04-13 13:25] LABS: Lipase < 10 U/L (23-300)
[2024-04-13] MEDS: fentaNYL CITRATE INJ (*CRX) 100 MCG/2 ML VIAL 50 MCG IV PUSH ×3 (13:33→19:08)
[2024-04-13] MEDS: ONDANSETRON INJ 4 MG/2 ML VIAL IV PUSH ×2 (13:33→19:08)
[2024-04-13] MEDS: PANTOPRAZOLE SODIUM IV 40 MG VIAL IV PUSH (13:33)
[2024-04-13] MEDS: SODIUM CHLORIDE 0.9% IV 1,000 ML 999 ML IV CONT ×2 (13:33→15:51)
[2024-04-13] MEDS: hydrALAZINE HCL 20 MG/ML VIAL 10 MG IV PUSH ×2 (14:54→16:50)
[2024-04-13] MEDS: PROMETHAZINE HCL 25 MG/ML AMPUL 12.5 MG IV PUSH ×2 (14:55→22:41)
[2024-04-13 15:38] LABS: Glucose Point of Care 370 mg/dl (65-105)
--- NOTE | 2024-04-13 15:56 | PC.NURSE ---
Per verbal order by EDP insulin dose changed to 3 units IV push.
[2024-04-13] MEDS: INSULIN HUMAN REGULAR (*BKC) 100 UNITS/ML IV PUSH (16:00)
[2024-04-13] MEDS: POTASSIUM CHLORIDE INJ 40 MEQ in SODIUM CHLORIDE 0.9% IV 500 ML 130 MEQ IVPB (16:01)
[2024-04-13] MEDS: PROCHLORPERAZINE EDISYLATE 10 MG/2 ML VIAL IV PUSH (16:35)
[2024-04-13 17:27] LABS: Glucose Point of Care 281 mg/dl (65-105)
--- NOTE | 2024-04-13 17:46 | PM.IMHP ---
H&P: HPI History of Present Illness Date/Time: 04/13/24 17:45 Chief Complaint: High blood pressure. Narrative: This is a 49-year-old female with type 1 diabetes mellitus, diabetic nephropathy status post transplant in 02/2019, gastroparesis with a normal gastric emptying study in January 2024, pancreatic insufficiency chronic obstructive pulmonary disease, hypertension, hyperlipidemia, and anxiety who presented to the emergency department via private vehicle for evaluation of high blood pressure. The patient provides the following history. She was seen in the emergency department 4 days ago with vomiting and diarrhea and was found to have urinary tract infection at that time for which she was discharged home on cephalexin. She was seen again 2 days later for ongoing vomiting and diarrhea and was found to have evidence of gastritis and colitis on CT scan. She was discharged home with ciprofloxacin and metronidazole unfortunately she has not been able to keep down any of her medications due to the vomiting. She is feeling increasingly weak and continues to have too numerous to count episodes of diarrhea day ache, occasionally admixed with mucus. Temperature has been as high as 101.8? F. She reports generalized abdominal pain without significant aggravating or alleviating factors. Blood pressures have been running high to the fact that she could not hold down her medications and the pain. She denies chest pain, shortness of breath, hematemesis, melena, and hematochezia. Her has had similar symptoms. She has no known history of C diff or inflammatory bowel disease. In the ED: She has been afebrile since arrival. Blood pressure has been as high as 212/100. She is persistently in sinus tachycardia with rates in the 1 teens to 120s. Labs were significant for a WBC count of 12.2, hemoglobin 16.6, potassium 2.9, chloride 94, anion gap 13, creatinine 0.80, glucose 308, total protein 10.0. Urine is positive for 3+ glucose. Sacrum and coccyx x-ray showed mild degenerative skeletal changes with no acute osseous abnormality. She has thus far received 2 L of normal saline, prochlorperazine, pantoprazole, ondansetron, potassium chloride, hydralazine, ceftriaxone, and metronidazole. She is being admitted in this setting for further treatment and evaluation. Review of Systems Review of Systems: 12 systems were reviewed and are negative except for as per HPI. [facility] Past Medical History Medical History (Updated 04/13/24 @ 17:57 by Denise Romero PA-C) Chronic obstructive pulmonary disease Diabetic gastroparesis Diabetic nephropathy Hypertension MRSA infection Pancreatic insufficiency Post-menopausal Type 1 diabetes mellitus Surgical History Surgical History (Updated 04/13/24 @ 17:58 by Denise Romero PA-C) History of appendectomy (02/2019) History of benign breast biopsy History of hysterectomy History of kidney transplant (02/2019) [place] History of right nephrectomy Secondary to suspicious mass which turned out to be noncancerous. Family History Family History Grandparent Diabetes mellitus Grandparent Hypertension Social History Social History Social History: Surrogate medical decision maker: Aleja Mcghee, mother. Code status: Full code. Smoking packs per day: 1 Smoking cigarettes per day: 20.0 Years smoked: 10 Smoking pack-years: 10.00 Smoking status: Former smoker Tobacco type: cigarettes Second hand tobacco smoke exposure: No Smoking end date: 10/27/18 Alcohol intake: never Substance use: current Substance use type: marijuana Do You Feel Safe in your Home?: Yes Lack of Transportation: No Lack of Food: Never True Current Housing: I Have Housing Concerned About Future Housing: No Difficulty Paying Gas/Electric Bills: No Difficulty Paying for Meds: No Currently Unemploy
--- NOTE | 2024-04-13 18:19 | ADMGEN ---
This patient, Juaquin Rey, was admitted to IMU Room 209-. Patient/family oriented to hospital policies and general routines including ID bracelet, bed and alarms, visiting hours, pain management, procedures, bathroom and other care routines, personal items, smoking policy, room service/diet, and visiting hours. Information on how to activate the Rapid Response Team has been discussed. Patient/Family are encouraged to report perceived risks to care and to ask questions if they do not understand what they are told or what they should do.
[2024-04-13] MEDS: SODIUM CHLORIDE 0.9% IV 1,000 ML 100 ML IV CONT (19:09)
[2024-04-13] MEDS: metroNIDAZOLE 500 MG/ISO 100ML 500 MG/100 ML BAG 100 MG IVPB (19:10)
[2024-04-13] MEDS: HYDROmorphone HCL INJ (*CRX) 1 MG/ML SYR 0.5 MG IV PUSH (22:36)
[2024-04-13 22:57] LABS: Anion Gap 13 mmol/L (4-12); Blood Urea Nitrogen 9 mg/dL (7-17); Calcium 8.4 mg/dL (8.4-10.2); Carbon Dioxide 23 mmol/L (22-30); Chloride 99 mmol/L (98-107); Estimated CRCL calculation 75 ml/min; Estimated Glomerular Filt Rate > 60; Glucose 208 mg/dL (65-110); Magnesium 1.3 mg/dL (1.6-2.3); Potassium 3.5 mmol/L (3.4-5.0); Sodium 135 mmol/L (137-145)
[2024-04-13] MEDS: LORazepam INJ (*CRX) 2 MG/ML VIAL 0.5 MG IV PUSH (23:11)
[2024-04-14] VITALS (23 sets, daily range): BP systolic 116–211; BP diastolic 66–109; PULSE 70–122; RESP 12–20; TEMP 36.3–36.9; O2SAT 96–100
[2024-04-14 00:36] LABS: Glucose Point of Care 169 mg/dl (65-105)
[2024-04-14] MEDS: MAGNESIUM SULF 2 GM/WATER 50ML 2 GM/50 ML BAG IVPB (00:53)
[2024-04-14] MEDS: HYDROmorphone HCL INJ (*CRX) 1 MG/ML SYR 0.5 MG IV PUSH ×6 (01:31→21:49)
[2024-04-14] MEDS: METOPROLOL TARTRATE INJ 5 MG/5 ML VIAL IV PUSH ×3 (01:31→12:23)
[2024-04-14] MEDS: ONDANSETRON INJ 4 MG/2 ML VIAL IV PUSH ×2 (01:32→05:36)
[2024-04-14 05:18] LABS: Hematocrit 44.6 % (37.0-47.0); Hemoglobin 15.2 g/dL (12.0-15.0); Mean Corpuscular HGB Conc 34.1 g/dl (32-36); Mean Corpuscular Hemoglobin 33.9 pg (26-34); Mean Corpuscular Volume 99.3 fl (80-100); Mean Platelet Volume 9.5 fl (7.4-10.4); Platelet Count Result 217 k/mm3 (150-375); Red Blood Count 4.49 M/mm3 (4.2-5.4); Red Cell Distribution Width 13.6 % (11.5-14.5); White Blood Count 8.4 K/mm3 (4.5-10.0)
[2024-04-14 05:32] LABS: Anion Gap 9 mmol/L (4-12); Blood Urea Nitrogen 9 mg/dL (7-17); Calcium 8.5 mg/dL (8.4-10.2); Carbon Dioxide 28 mmol/L (22-30); Chloride 99 mmol/L (98-107); Estimated CRCL calculation 66 ml/min; Estimated Glomerular Filt Rate > 60; Glucose 147 mg/dL (65-110); Magnesium 2.1 mg/dL (1.6-2.3); Potassium 3.2 mmol/L (3.4-5.0); Sodium 136 mmol/L (137-145)
[2024-04-14] MEDS: metroNIDAZOLE 500 MG/ISO 100ML 500 MG/100 ML BAG 100 MG IVPB ×3 (05:36→21:50)
[2024-04-14] MEDS: SODIUM CHLORIDE 0.9% IV 1,000 ML 100 ML IV CONT ×2 (06:22→15:08)
[2024-04-14] MEDS: PANTOPRAZOLE SODIUM IV 40 MG VIAL IV PUSH ×2 (08:25→21:48)
[2024-04-14] MEDS: FLUTICASONE/SALMETEROL 115-21 MCG INHALER 1 PUFF 2 PUFF INHALATION (08:27)
[2024-04-14] MEDS: LORazepam INJ (*CRX) 2 MG/ML VIAL 0.5 MG IV PUSH (08:29)
[2024-04-14] MEDS: PROMETHAZINE HCL 25 MG/ML AMPUL 12.5 MG IV PUSH (08:30)
[2024-04-14] MEDS: TIMOLOL MALEATE 0.5% OP SOLN 5 ML BOTTLE 2 DROP EACH EYE ×2 (08:40→16:34)
--- NOTE | 2024-04-14 10:20 | PC.NURSE ---
Pt reports she feels her sugar dropping . Pt continues to be NPO. Dr. Johnson at bedside. BG currently 124. D5NS started at 75 ml/hr.
[2024-04-14] MEDS: MONTELUKAST SODIUM 10 MG TABLET PO (10:30)
[2024-04-14] MEDS: predniSONE 5 MG TABLET PO (10:30)
[2024-04-14] MEDS: GABAPENTIN 100 MG CAPSULE PO ×3 (10:30→16:33)
--- NOTE | 2024-04-14 10:30 | PC.NURSE ---
Dr. Johnson at bedside. Reviewed medication list. Aware of pt refusing numerous meds. Please review MAR.
[2024-04-14] MEDS: DIVALPROEX SODIUM DR 250 MG TABEC 500 MG PO ×2 (10:33→16:33)
[2024-04-14] MEDS: ASPIRIN 81 MG ENTERIC TABLET PO (10:33)
[2024-04-14] MEDS: carvediloL 6.25 MG TABLET PO ×2 (10:34→21:48)
[2024-04-14] MEDS: amLODIPine BESYLATE 5 MG TABLET PO ×2 (10:35→16:33)
[2024-04-14] MEDS: SERTRALINE HCL 50 MG TABLET PO (10:35)
[2024-04-14] MEDS: DEXTROSE 5%/0.9% SOD CHL 1,000 ML 75 ML IV CONT (10:43)
[2024-04-14 12:00] LABS: Glucose Point of Care 160 mg/dl (65-105)
--- NOTE | 2024-04-14 12:13 | PHAR ---
Pharmacy verified home med: * USE FROM HOME * lipase/protease/amylase 60,000 unit-189,600 unit-252,600 unit ORAL (ZENPEP) TAKE ONE CAPSULE BY MOUTH WITH MEALS OR SNACKS
[2024-04-14] MEDS: PROTEASE PO ×2 (12:25→16:33)
[2024-04-14] MEDS: AMYLASE PO ×2 (12:25→16:33)
[2024-04-14] MEDS: LIPASE PO ×2 (12:25→16:33)
[2024-04-14] MEDS: [UNRECOGNIZED DRUG - OTHER] PO ×2 (12:25→16:33)
[2024-04-14] MEDS: INSULIN GLARGINE (*BKC) 100 UNITS/ML 10 UNITS SUB-Q (15:01)
--- NOTE | 2024-04-14 15:42 | WPDGICN ---
Assessment and Plan Assessment and plan (1) Colitis: Code(s): K52.9 - Noninfective gastroenteritis and colitis, unspecified Status: Inactive Assessment and Plan: symptomatically better, no more diarrhea complete treatment and advance diet, probably home tomorrow had colonoscopy last year, only polyp, no colitis also on treatment for EPI (2) Diarrhea: Qualifiers: Diarrhea type: unspecified type Qualified Code(s): R19.7 - Diarrhea, unspecified Code(s): R19.7 - Diarrhea, unspecified Status: Inactive Assessment and Plan: better (3) Hypertensive urgency: Code(s): I16.0 - Hypertensive urgency Status: Acute Assessment and Plan: improved (4) Pancreatic insufficiency: Code(s): K86.89 - Other specified diseases of pancreas Status: Acute Assessment and Plan: pancreatic supplment (5) Lower abdominal pain: Code(s): R10.30 - Lower abdominal pain, unspecified Status: Acute (6) Diabetic gastroparesis: Code(s): E11.43 - Type 2 diabetes mellitus with diabetic autonomic (poly)neuropathy; K31.84 - Gastroparesis Status: Acute (7) Intractable vomiting with nausea: Code(s): R11.2 - Nausea with vomiting, unspecified Status: Acute Assessment and Plan: improved, advance diet GI Consult Note Consult date/time: 04/14/24 15:42 Reason for consult: diarrhea, colitis HPI: Juaquin Rey is a 49 year old female with past medical surgical history of insulin dependent diabetes, kidney transplant on 03/09/2019, diabetic gastroparesis, COPD, hypertension, EPI on zenpep and diabetic nephropathy. She is here with after having headache and noted her BP at home was too high ~ 220/110. Also about 4 ago was here with vomiting and diarrhea, treated for uti and had CT scan that showed possible gastritis and colitis, discharge with abx but could not keep medications down. She came back with uncontrolled HTN but also with ongoing diarrhea and abdominal discomfort, started on abx and now having normal BM (previous symptom of GI discomfort had improved after started on zenpep).Labs showed WBC count of 12.2, hemoglobin 16.6, potassium 2.9, chloride 94, anion gap 13, creatinine 0.80. Today she is more comfortable and eating, hoping to go home tomorrow. Review of Systems Constitutional: Constitutional: Reports headache(s) Eyes: Eyes: Reports no additional eye complaints ENT: Reports Normal hearing present and Reports headache(s) Cardiovascular: Cardiovascular: Denies palpitations Respiratory: Respiratory: Denies cough Gastrointestinal: Gastrointestinal: Reports diarrhea, Reports nausea and Reports vomiting Genitourinary: Genitourinary: Denies hematuria Musculoskeletal: Musculoskeletal: Denies neck pain Integumentary/Breasts: Skin/Breast: Denies dry skin Neurologic: Reports Normal hearing present, Reports headache(s) and Denies weakness Psychiatric: Psychiatric: Denies anxiety Endocrine: Endocrine: Denies change in body appearance [facility] Past Medical History Medical History (Updated 04/13/24 @ 17:57 by Denise Romero PA-C) Chronic obstructive pulmonary disease Diabetic gastroparesis Diabetic nephropathy Hypertension MRSA infection Pancreatic insufficiency Post-menopausal Type 1 diabetes mellitus Surgical History Surgical History (Updated 04/13/24 @ 17:58 by Denise Romero PA-C) History of appendectomy (02/2019) History of benign breast biopsy History of hysterectomy History of kidney transplant (02/2019) [place] History of right nephrectomy Secondary to suspicious mass which turned out to be noncancerous. Family History Family History Grandparent Diabetes mellitus Grandparent Hypertension Social History Social History Social History: Surrogate medical decision maker: Abdoulaye
[2024-04-14 16:20] LABS: Glucose Point of Care 191 mg/dl (65-105)
[2024-04-14 16:29] LABS: Glucose Point of Care 227 mg/dl (65-105)
--- NOTE | 2024-04-14 16:49 | PM.IMPN ---
Progress Note: A&P Assessment and Plan (1) Hypertensive urgency: Code(s): I16.0 - Hypertensive urgency Status: Acute (2) Colitis: Code(s): K52.9 - Noninfective gastroenteritis and colitis, unspecified Status: Inactive (3) Esophagitis with gastritis: Code(s): K29.70 - Gastritis, unspecified, without bleeding; K20.90 - Esophagitis, unspecified without bleeding Status: Acute (4) Hypokalemia: Code(s): E87.6 - Hypokalemia Status: Acute (5) Pancreatic insufficiency: Code(s): K86.89 - Other specified diseases of pancreas Status: Acute (6) Type 1 diabetes mellitus: Code(s): E10.9 - Type 1 diabetes mellitus without complications Status: Acute (7) History of kidney transplant: Onset Date: 02/2019 Code(s): Z94.0 - Kidney transplant status Status: Acute Plan Diarrhea and vomiting resolved since admission. Continue antibiotics, Protonix follow-up blood cultures. Start clear fluids and advance as tolerated. Monitor electrolytes. DVT prophylaxis prophylaxis subQ Lovenox. Subjective Date/time seen: 04/14/24 16:49 Interval history: Comfortable at bedside. Noted that nausea vomiting and diarrhea resolved. Review of Systems Review of Systems: 12 systems were reviewed and are negative except for as per HPI. Exam Narrative: General: Comfortable at bedside. HEENT: PERRL, EOMI. Sclera anicteric. Moist mucous membranes. Neck: Supple. Respiratory: Respirations are nonlabored and she is speaking in full sentences. Fine crackles heard throughout all lung joshi. Cardiovascular: Regular rate rhythm with normal S1-S2. Gastrointestinal: Abdomen is soft and nondistended with positive bowel sounds. She is tender to palpation diffusely throughout the abdomen without guarding or rebound tenderness. Skin: Warm and dry. No rash or lesions on limited exam. Extremities: No cyanosis, clubbing, or significant edema. Neurological: Alert. Cranial nerves 2-12 are grossly intact. No gross focal deficits to casual conversation. Objective Data Vital Signs Vital Signs: Vital Signs - 24 hr 04/13/24 17:09 04/13/24 18:33 04/13/24 20:00 Temperature 98.8 F 99.9 F H Pulse Rate 132 H 126 H 122 H Respiratory Rate 15 19 19 Blood Pressure 171/88 H 165/89 H 194/105 H Pulse Oximetry 100 97 100 Oxygen Delivery Fraction of Inspired Oxygen 04/13/24 20:00 04/14/24 01:31 04/14/24 03:31 Temperature 97.6 F Pulse Rate 122 H 86 Respiratory Rate 20 Blood Pressure 126/69 Pulse Oximetry 98 Oxygen Delivery Room Air Fraction of Inspired Oxygen 04/14/24 00:00 04/14/24 01:15 04/14/24 02:10 Temperature 97.6 F Pulse Rate 103 H Respiratory Rate 16 Blood Pressure 123/66 211/109 H 116/66 Pulse Oximetry 96 Oxygen Delivery Fraction of Inspired Oxygen 04/14/24 00:00 04/14/24 04:00 04/13/24 20:00 Temperature Pulse Rate 121 H Respiratory Rate Blood Pressure Pulse Oximetry Oxygen Delivery Room Air Room Air Fraction of Inspired Oxygen 04/13/24 22:00 04/14/24 00:00 04/14/24 02:00 Temperature Pulse Rate 116 H 103 H 89 Respiratory Rate Blood Pressure Pulse Oximetry Oxygen Delivery Fraction of Inspired Oxygen 04/14/24 04:00 04/14/24 05:36 04/14/24 06:00 Temperature Pulse Rate 83 90 73 Respiratory Rate Blood Pressure Pulse Oximetry Oxygen Delivery Fraction of Inspired Oxygen 04/14/24 08:00 04/14/24 08:00 04/14/24 08:27 Temperature 98.4 F Pulse Rate 77 Respiratory Rate 12 Blood Pressure 149/76 H Pulse Oximetry 100 99 99 Oxygen Delivery Room Air Room Air Fraction of Inspired Oxygen 21 04/14/24 10:34 04/14/24 08:00 04/14/24 10:00 Temperature Pulse Rate 86 89 85 Respiratory Rate Blood Pressure Pulse Oximetry Oxygen Delivery Fraction of Inspired Oxygen 04/14/24 12:00 04/14/24 12:23
[2024-04-14 20:29] LABS: Glucose Point of Care 202 mg/dl (65-105)
[2024-04-14] MEDS: MICONAZOLE NITRATE 2% CREAM 30 GM TUBE 1 APPLIC TOPICAL (21:51)
[2024-04-14] MEDS: ALPRAZolam (*CRX) 0.5 MG TABLET PO (22:01)
[2024-04-15] VITALS (10 sets, daily range): BP systolic 113–162; BP diastolic 63–82; PULSE 59–83; RESP 16–20; TEMP 36.3–36.8; O2SAT 94–100
[2024-04-15] MEDS: HYDROmorphone HCL INJ (*CRX) 1 MG/ML SYR 0.5 MG IV PUSH ×3 (03:11→09:23)
[2024-04-15 05:34] LABS: Basophils Absolute Auto 0.1 K/mm3 (0.0-0.1); Basophils Percent Auto 1.4 % (0.2-1.2); Eosinophils Absolute Auto 0.3 K/mm3 (0-0.3); Eosinophils Percent Auto 3.4 % (0-4.4); Hematocrit 44.1 % (37.0-47.0); Hemoglobin 14.3 g/dL (12.0-15.0); Immature Granulocyte Absolute 0.03 K/mm3 (0.00-0.031); Immature Granulocyte Percent A 0.4 % (0-0.5); Lymphocytes Absolute Auto 2.82 K/mm3 (0.9-3.2); Lymphocytes Percent Auto 38.4 % (18.3-44.2); Mean Corpuscular HGB Conc 32.4 g/dl (32-36); Mean Corpuscular Hemoglobin 32.6 pg (26-34); Mean Corpuscular Volume 100.7 fl (80-100); Mean Platelet Volume 9.5 fl (7.4-10.4); Monocytes Absolute Auto 0.8 K/mm3 (0.1-0.6); Monocytes Percent Auto 11.4 % (2.6-8.5); Neutrophils Absolute Auto 3.3 K/mm3 (1.3-6.7); Platelet Count Result 223 k/mm3 (150-375); Red Blood Count 4.38 M/mm3 (4.2-5.4); Red Cell Distribution Width 13.3 % (11.5-14.5); White Blood Count 7.3 K/mm3 (4.5-10.0)
[2024-04-15] MEDS: metroNIDAZOLE 500 MG/ISO 100ML 500 MG/100 ML BAG 100 MG IVPB (05:34)
[2024-04-15 05:49] LABS: Alanine Aminotransferase 12 U/L (6-35); Alkaline Phosphatase 56 U/L (38-126); Anion Gap 10 mmol/L (4-12); Aspartate Amino Transferase 25 U/L (14-36); Bilirubin,Total 0.4 mg/dL (0.2-1.3); Blood Urea Nitrogen 8 mg/dL (7-17); Calcium 8.7 mg/dL (8.4-10.2); Carbon Dioxide 28 mmol/L (22-30); Chloride 98 mmol/L (98-107); Estimated CRCL calculation 58 ml/min; Estimated Glomerular Filt Rate > 60; Glucose 177 mg/dL (65-110); Magnesium 1.7 mg/dL (1.6-2.3); Sodium 136 mmol/L (137-145)
[2024-04-15] MEDS: ALPRAZolam (*CRX) 0.5 MG TABLET PO (06:32)
[2024-04-15 07:44] LABS: Glucose Point of Care 155 mg/dl (65-105)
[2024-04-15] MEDS: CHOLECALCIFEROL 1,000 UNITS TABLET 2000 UNITS PO (07:54)
[2024-04-15] MEDS: SERTRALINE HCL 50 MG TABLET PO (07:54)
[2024-04-15] MEDS: ENOXAPARIN 40 MG/0.4 ML SYRINGE SUB-Q (07:55)
[2024-04-15] MEDS: DIVALPROEX SODIUM DR 250 MG TABEC 500 MG PO (07:55)
[2024-04-15] MEDS: ATORVASTATIN 20 MG TABLET PO (07:55)
[2024-04-15] MEDS: amLODIPine BESYLATE 5 MG TABLET PO (07:55)
[2024-04-15] MEDS: carvediloL 6.25 MG TABLET PO (07:55)
[2024-04-15] MEDS: ASPIRIN 81 MG ENTERIC TABLET PO (07:55)
[2024-04-15] MEDS: GABAPENTIN 100 MG CAPSULE PO (07:56)
[2024-04-15] MEDS: predniSONE 5 MG TABLET PO (07:56)
[2024-04-15] MEDS: MONTELUKAST SODIUM 10 MG TABLET PO (07:56)
[2024-04-15] MEDS: CYANOCOBALAMIN 1,000 MCG TABLET 1000 MCG PO (07:56)
[2024-04-15] MEDS: AMYLASE PO (07:58)
[2024-04-15] MEDS: PROTEASE PO (07:58)
[2024-04-15] MEDS: LIPASE PO (07:58)
[2024-04-15] MEDS: [UNRECOGNIZED DRUG - OTHER] PO (07:58)
[2024-04-15] MEDS: PANTOPRAZOLE SODIUM IV 40 MG VIAL IV PUSH (07:58)
[2024-04-15] MEDS: TIMOLOL MALEATE 0.5% OP SOLN 5 ML BOTTLE 2 DROP EACH EYE (07:59)
[2024-04-15] MEDS: INSULIN GLARGINE (*BKC) 100 UNITS/ML 10 UNITS SUB-Q (08:04)
[2024-04-15] MEDS: FLUTICASONE/SALMETEROL 115-21 MCG INHALER 1 PUFF 2 PUFF INHALATION (08:06)
--- NOTE | 2024-04-15 12:29 | PM.DS ---
DS: Admitting Diagnosis Discharge Date 04/15/24 Admitting Diagnosis Colitis DS: Summary Hospital Course Hospital Course: This is a 48-year-old female with type 1 diabetes mellitus, diabetic nephropathy status post kidney transplant, gastroparesis, chronic obstructive pulmonary disease, hypertension, hyperlipidemia, and anxiety who presented to the emergency department via private vehicle for evaluation of fever, nausea, and vomiting. She is known to myself and the hospitalist service from an admission several weeks ago in which she was treated for dehydration and mild diabetic ketoacidosis after presenting with nausea and vomiting which she attributed to a ?gastroparesis attack?. She was seen in the ED the day after discharge with similar complaints and she improved with supportive treatment. She has done well since that time however this morning at about 03:00 she was wakened from sleep with upper abdominal pain similar to previous attacks associated with severe nausea and several episodes of non bloody and non bilious emesis. She had several loose stools as well. After couple of hours she started to feel acutely short of breath and used her rescue inhaler several times without benefits. With further questioning she does endorse mild orthopnea today and states that she has had significant swelling in her feet and ankles for the last several weeks which she thinks is due to all of her recent hospital visits in which she received IV fluids. She denies headache, neck ache, sinus congestion, sore throat, chest or pleuritic pain, racing heart, palpitations, syncope, near syncope, cough, sick contacts, melena, hematochezia, dysuria, open wounds, and calf pain. In the ED: Temperature was 101? F on arrival. SpO2 was 83% on room air. Blood pressure and pulse were stable. Labs were significant for a WBC count of 8.6, hemoglobin 11.2, sodium 138, potassium 37, chloride 105, carbon dioxide 29, BUN 9, creatinine 0.70, lactic acid 0.9, proBNP 3100, lipase less than 10. UA was unremarkable. She tested negative for influenza, RSV, and COVID. Chest x-ray showed diffuse bilateral airspace disease which may represent pneumonia or edema. She was given furosemide 40 mg IV, azithromycin 500 mg IV, and ceftriaxone 1 g IV. She is being admitted in this setting for further treatment and evaluation. Patient was resuscitated with IVF, and continued Rocephin and Flagyl. She noted vomiting and diarrhea resolved and no episode while admitted. Potassium and Mag were replaced adn monitored. Patient continued to improved and today she is tolerating diet, ambulatory and thus was discharged. She is discharged on Cefdinir and Flagyl x 10 days Also KCl 40mEq x 5 days F/u with PCP in 3-5 day s F/u with Gi as instructed Time Spent with Patient Time attestation: Total time spent providing and/or coordinating discharge services: DS: Data Data Completed and Pending Labs on day of discharge: Labs from last 24 hours 04/15/24 04/15/24 04/14/24 07:34 04:57 19:53 WBC 7.3 RBC 4.38 Hgb 14.3 Hct 44.1 MCV 100.7 H MCH 32.6 MCHC 32.4 RDW 13.3 Plt Count 223 MPV 9.5 Immature Gran % (Auto) 0.4 Neut % (Auto) 45.0 L Lymph % (Auto) 38.4 Bremer % (Auto) 11.4 H Eos % (Auto) 3.4 Baso % (Auto) 1.4 H Lymph # (Auto) 2.82 Bremer # (Auto) 0.8 H Eos # (Auto) 0.3 Baso # (Auto) 0.1 Abs Immat Gran (auto) 0.03 Absolute Neuts (auto) 3.3 Absolute Nucleated RBC 0.000 Nucleated RBC % 0.0 Sodium 136 L Potassium 3.0 L Chloride 98 Carbon Dioxide 28 Anion Gap 10 BUN 8 Creatinine 0.80 Estim Creat Clear Calc 58 Estimated GFR > 60 Glucose 177 H POC Capillary Glucose 155 H 202 H Calcium 8.7 Magnesium 1.7 Total Bilirubin 0.4 AST 25 ALT 12 Alkaline Phosphatase 56 Total Protein 8.0 Albumin 4.0 04/14/24 04/14/24 15:50 14:41 WBC RBC Hgb Hct MCV MCH
[2024-04-15 12:38] LABS: Glucose Point of Care 244 mg/dl (65-105)
--- NOTE | 2024-04-15 16:33 | PC.NURSE ---
On 04/15/24, the student, Lupe Mcknight [facility], provided care and completed [facility] documentation on this patient. I have reviewed the student's documentation and agree with the findings.
== END 2024-04-15 13:14 | disposition home or self-care (01) ==
LOC: ANHED 16:37 → ANHIMU 04-14 08:47
PROVIDERS: Emergency Medicine; Physician Assistant; Admitting Provider General Practice; Emergency Provider Emergency Medicine; PCP Internal Medicine; Visit Provider Internal Medicine
DX: I16.0 Hypertensive urgency (principal); K20.90 Esophagitis, unspecified without bleeding; K29.70 Gastritis, unspecified, without bleeding; E87.6 Hypokalemia; K31.84 Gastroparesis; I10 Essential (primary) hypertension; E10.21 Type 1 diabetes mellitus with diabetic nephropathy; J44.9 Chronic obstructive pulmonary disease, unspecified; E78.5 Hyperlipidemia, unspecified; F41.9 Anxiety disorder, unspecified; Z94.0 Kidney transplant status; Z87.891 Personal history of nicotine dependence; Z79.82 Long term (current) use of aspirin; Z79.4 Long term (current) use of insulin; K86.89 Other specified diseases of pancreas; E10.43 Type 1 diabetes mellitus with diabetic autonomic (poly)neuropathy
CPT/HCPCS: 36415; 72220; 80048; 80053; 81003; 82948; 83690; 83735; 85025; 85027; 94640; 96361; 96365; 96366; 96372; 96375; 96376; 99285; A9270; G0378; J0360; J0696; J0780; J1170; J1650; J1815; J1836; J2060; J2405; J2470; J2550; J3010; J3475; J3480; J7030; J7040; J7042; J7512

== ENCOUNTER 2024-08-07 13:56 | Inpatient (IN) | payer MEDICARE, MEDICAID, SELFPAY ==
--- NOTE | ~2024-08-07 | CT_ITS ---
EXAMINATION: CT abdomen pelvis w con DATE: 08/07/2024 21:31 INDICATION: frequency or urination, N/V TECHNIQUE: Computed tomography (CT) of the abdomen and pelvis was performed with 100 mL Omnipaque-350 intravenous contrast. Automated exposure control and iterative reconstruction technique were employe d. The dose-length product was 315.92 mGy-cm. COMPARISON: 04/11/2024, 12/21/2023. FINDINGS: Lower thorax: Mild peripheral septal thickening. Liver: Normal. Biliary/Gallbladder: Gallbladder is normal. No bile duct dilation. Pancreas: Fatty atrophy. Spleen: Normal. Adrenals:No mass. Kidneys: Absent right kidney. Left renal atrophy. GI tract: Small hiatal hernia. Mild distal esophageal and moderate gastric wall edema. No small or la rge bowel dilation. Mild diffuse colonic wall edema/thickening with hyperemia. Appendix not confident ly visualized, presumably surgically absent. Mesentery/Peritoneum: No ascites, mass, or free air. Retroperitoneum: No mass. Atherosclerotic abdominal aortic and/or arterial calcifications. Pelvis: Absent uterus. Mild urinary bladder wall thickening. Strand-like opacities in the bladder lum en, likely representing early contrast excretion. Right lower quadrant transplant kidney with focal l ower pole atrophy. Soft Tissues: Dystrophic calcification within an incision scar in the right lower quadrant. Small unc omplicated fat-containing umbilical hernia. Bones: No acute osseous finding. IMPRESSION: Mild interstitial edema in the lung bases. Mild esophagitis and moderate gastritis. CT findings suggestive of mild diffuse colitis. Mild urinary bladder wall thickening. Presumed contrast excretion into the bladder lumen, noting that blood or other debris could appear similarly. Correlate with urinalysis. Reviewed, dictated and finalized at location K. CAL CLERICAL ASSISTANT IMPRESSION: Mild interstitial edema in the lung bases. Mild esophagitis and moderate gastritis. CT findings suggestive of mild diffuse colitis. Mild urinary bladder wall thickening. Presumed contrast excretion into the blad omar lumen, noting that blood or other debris could appear similarly. Correlate with urinalysis.
--- NOTE | ~2024-08-07 | XR_ITS ---
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 RESULT: Lines, tubes, and devices: None. Lungs and pleura: Mild peripheral and lower lung reticulonodular opacities. Cardiomediastinal silhouette: Stable. Prominent central pulmonary arteries, could reflect pulmonary arterial hypertension Other: No acute osseous or upper abdominal finding. IMPRESSION: Pulmonary opacities may represent mild interstitial edema or respiratory bronchiolitis. Reviewed, dictated and finalized at location K. ICAL EDUCATION DEPARTMENT CHAIR IMPRESSION: Pulmonary opacities may represent mild interstitial edema or respiratory bronch iolitis.
[2024-08-07 14:16] VITALS: BP 164/102; PULSE 61; TEMP 36.4; O2SAT 100
--- NOTE | 2024-08-07 17:03 | ED_ITS ---
HPI - SOB/Dyspnea General Chief Complaint: Shortness of Breath/Dyspnea <Jeet Sanchez PA-C - Last Filed: 08/07/24 17:13> Stated Complaint: sob <Jeet Sanchez PA-C - Last Filed: 08/07/24 17:13> Time Seen by Provider: 08/07/24 18:14 <Jeet Sanchez PA-C - Last Filed: 08/07/24 17:13> Focused HPI: This is a 49 yo F who presents to the ED for chief complaint of flu like symptoms over the past 4 days. Endorses numerous episodes of vomiting with nausea but no diarrhea. Endorses productive cough, shortness of breath. States that she has had headache, chills and diffuse body aches. Endorses urinary frequency but no burning or blood. Endorses surgical history of kidney transplant. GENERAL: Well-appearing, well-nourished, and in no acute distress. HEAD: Normocephalic, atraumatic. CHEST: Clear to auscultation. No respiratory distress. HEART: Regular rate and rhythm. ABD: Soft nontender with mild bilateral flank tenderness. Repeatedly dry heaving in the room. NEURO: Alert and oriented x3. Patient screened in triage and initial orders placed. Additional care and disposition to be based upon diagnostic testing and treatment. <Jeet Sanchez PA-C - Last Filed: 08/07/24 17:13> Source: patient <Jeet Sanchez PA-C - Last Filed: 08/07/24 17:13> Mode of arrival: ambulatory <Jeet Sanchez PA-C - Last Filed: 08/07/24 17:13> Limitations: no limitations <Jeet Sanchez PA-C - Last Filed: 08/07/24 17:13> History of Present Illness HPI Narrative: Agree with the HPI above <Benjy Cheng MD - Last Filed: 08/07/24 22:18> Related Data Home Medications: Home Medications ?Medication ?Instructions ?Recorded ?Confirmed ?Last Taken ?Type aspirin 81 mg tablet,delayed 81 mg PO DAILY 08/30/20 04/13/24 01/09/24 History release (Adult Aspirin Regimen) azathioprine 50 mg tablet 50 mg PO DAILY 08/30/20 04/13/24 01/09/24 History omeprazole 20 mg capsule,delayed 20 mg PO DAILY 08/30/20 04/13/24 01/09/24 History release zolpidem 10 mg tablet (Ambien) 10 mg PO HS 08/30/20 04/13/24 01/09/24 History amlodipine 5 mg tablet 5 mg PO BID 12/22/23 04/13/24 04/13/24 History atorvastatin 20 mg tablet 20 mg PO DAILY 12/22/23 04/13/24 01/09/24 History biotin 5 mg tablet 5 mg PO HS 12/22/23 04/13/24 01/09/24 History cholecalciferol (vitamin D3) 50 50 mcg PO DAILY 12/22/23 04/13/24 01/09/24 History mcg (2,000 unit) tablet (Vitamin D3) cyanocobalamin (vitamin B-12) 500 1,000 mcg PO DAILY 12/22/23 04/13/24 01/09/24 History mcg tablet epinephrine 0.3 mg/0.3 mL 0.3 mg IM Q5-15M PRN Anaphylaxis 12/22/23 04/13/24 Unknown History injection, auto-injector flash glucose sensor (FreeStyle 12/22/23 04/13/24 Unknown History Lynda 14 Day Sensor kit) fluticasone furoate 100 1 inh inhalation DAILY 12/22/23 04/13/24 01/09/24 History mcg-vilanterol 25 mcg/dose inhalation powder (Breo Ellipta) gabapentin 100 mg capsule 100 mg PO TID 12/22/23 04/13/24 01/09/24 History insulin glargine U-300 conc 300 28 unit subcut DAILY 12/22/23 04/13/24 01/09/24 History unit/mL (1.5 mL) subcutaneous pen (Rigoberto Moreno U-300 Insulin) montelukast 10 mg tablet 10 mg PO DAILY 12/22/23 04/13/24 01/09/24 History pen needle, diabetic 31 gauge x 12/22/23 04/13/24 Unknown History 10/11 (BD Ultra-Fine Mini Pen Needle) sertraline 50 mg tablet 50 mg PO DAILY 12/22/23 04/13/24 01/09/24 History tramadol 50 mg tablet 100 mg PO Q6H PRN Pain 12/22/23 04/13/24 01/09/24 History alprazolam 0.5 mg tablet 0.5 mg PO TID PRN Anxiety 01/10/24 04/13/24 01/09/24 History carvedilol 6.25 mg tablet (Coreg) 6.25 mg PO BIDWM 01/10/24 04/13/24 04/13/24 History divalproex 500 mg tablet,delayed 500 mg PO TID 01/10/24 04/13/24 01/09/24 History release prednisone 5 mg tablet 5 mg PO DAILY 01/10/24 04/13/24 01/09/24 History tacrolimus 1 mg tablet,extended 3 mg PO DAILY 01/10/24 04/13/24 04/13/24 History release 24 hr (Envarsus XR) timolol maleate 0.5 % eye drops 2 drp EACH EYE BID 01/10/24 04/13/24 01/09/24 History fluticasone propionate 50 2 spray intranasal BID PRN RHINITIS 04/13/24 04/13/24 Unknown History mcg/actuation nasal spray,suspension glucagon 3 mg/actuation nasal 3 mg intranasal PRN PRN 04/13/24 04/13/24 Unknown History spray (Baqsimi) Hypoglycemia insulin lispro 100 unit/mL See Rx Instructions .Route .COMPLEX 04/13/24 04/13/24 Unknown History subcutaneous half-unit pen <Jeet Sanchez PA-C - Last Filed: 08/07/24 17:13> Allergies/Adverse Reactions: Allergies Allergy/AdvReac Type Severity Reaction Status Date / Time cyclobenzaprine Allergy Unknown Hives / Verified 04/09/24 13:50 Red Face tetracycline Allergy Unknown Nausea and Verified 04/09/24 13:50 Vomiting acetaminophen (From Tylenol) Allergy Nausea and Verified 04/09/24 13:50 Vomiting morphine AdvReac Itching Verified 04/09/24 13:50 <Jeet Sanchez PA-C - Last Filed: 08/07/24 17:13> Review of Systems 2 Review of Systems: As reviewed above in HPI <Benjy Cheng MD - Last Filed: 08/07/24 22:18> [facility] Past Medical History Medical History: Medical History Post-menopausal Pancreatic insufficiency Hypertension MRSA infection Chronic obstructive pulmonary disease Diabetic nephropathy Type 1 diabetes mellitus Diabetic gastroparesis <Jeet Sanchez PA-C - Last Filed: 08/07/24 17:13> Surgical History Surgical History: Surgical History History of right nephrectomy Secondary to suspicious mass which turned out to be noncancerous. History of benign breast biopsy History of hysterectomy History of appendectomy (02/2019) History of kidney transplant (02/2019) [place] <DENISSE Garza Last Filed: 08/07/24 17:13> Family History Family History: Family History Grandparent Diabetes mellitus Grandparent Hypertension <Jeet Sanchez PA-C - Last Filed: 08/07/24 17:13> Social History Social History: Social History Social History: Surrogate medical decision maker: Aleja Mcghee, mother. Code status: Full code. Smoking packs per day: 1 Smoking cigarettes per day: 20.0 Years smoked: 10 Smoking pack-years: 10.00 Smoking status: Former smoker Tobacco type: cigarettes Second hand tobacco smoke exposure: No Smoking end date: 10/27/18 Alcohol intake: never Substance use: current Substance use type: marijuana Do You Feel Safe in your Home?: Yes Lack of Transportation: No Lack of Food: Never True Current Housing: I Have Housing Concerned About Future Housing: No Difficulty Paying Gas/Electric Bills: No Difficulty Paying for Meds: No Currently Unemployed: No Education: Don't Know Difficulty w/ Childcare or Family Care: No Spiritual care concerns: No <DENISSE Garza Last Filed: 08/07/24 17:13> Exam 2 Narrative: GENERAL: Retching throughout the examination but not any acute distress, appears dehydrated HEAD: [Normocephalic, atraumatic.] EYES: [PERRLA and EOMI.] ENT: Nares clear, no rhinorrhea or epistaxis. Mucous membranes dry. NECK: Supple. CHEST: [Clear to auscultation. No respiratory distress.] HEART: [Regular rate and rhythm]. No murmur heard. [Normal peripheral pulses.] ABDOMEN: [Soft, nondistended], mildly tender to palpation in the bilateral flanks, mildly tender to palpation of the epigastrium, [No rigidity or guarding] EXTREMITIES: Normal range of motion. [No edema.] SKIN: Warm, dry, no rash. NEURO: [No focal deficits]. Alert and oriented [x3.] PSYCH: [Normal mood and affect.] <Benjy Cheng MD - Last Filed: 08/07/24 22:18> Course Vital Signs Vital signs: Vital Signs Temperature 36.4 C L 08/07/24 14:16 Pulse Rate 61 08/07/24 14:16 Blood Pressure 164/102 H 08/07/24 14:16 Pulse Oximetry 100 08/07/24 14:16 Oxygen Delivery Room Air 08/07/24 14:16 Temperature 36.4 C L 08/07/24 14:16 Pulse Rate 88 08/07/24 22:12 Respiratory Rate 14 08/07/24 21:40 Blood Pressure 212/97 H 08/07/24 21:40 Pulse Oximetry 98 08/07/24 21:40 Oxygen Delivery Room Air 08/07/24 14:16 <Jeet Sanchez PA-C - Last Filed: 08/07/24 17:13> Vital Signs Temperature 36.4 C L 08/07/24 14:16 Pulse Rate 61 08/07/24 14:16 Blood Pressure 164/102 H 08/07/24 14:16 Pulse Oximetry 100 08/07/24 14:16 Oxygen Delivery Room Air 08/07/24 14:16 Temperature 36.4 C L 08/07/24 14:16 Pulse Rate 88 08/07/24 22:12 Respiratory Rate 14 08/07/24 21:40 Blood Pressure 212/97 H 08/07/24 21:40 Pulse Oximetry 98 08/07/24 21:40 Oxygen Delivery Room Air 08/07/24 14:16 <Benjy Cheng MD - Last Filed: 08/07/24 22:18> MDM - SOB/Dyspnea MDM Narrative Medical decision making narrative: 49-year-old female with history of type 1 diabetes, COPD, pancreatic insufficiency, diabetic gastroparesis, hypertension. Today patient presents to the emergency department with a chief complaint of flu-like symptoms over last 4 days. She exhibits numerous episodes of nausea vomiting, diarrhea, urinary frequency but no burning. She states that she is having shortness of breath, headache, chills and diffuse body aches. She has had positive sick contacts with multiple family members exhibiting flu-like symptoms at home. She states this does not feel like she is in DKA and does not feel like her gastroparesis. Denies any recent injuries or trauma. States that she has been throwing up throughout the day and cannot tolerate p.o. intake at this time. She does appear dehydrated uncomfortable but not any acute distress. She has no tachycardia, tachypnea, fever or hypoxia. Blood pressure mildly elevated but not too concerning. Considerations presently are for diabetic ketoacidosis, gastroparesis, gastroenteritis, flu, COVID, RSV. Less likely pneumonia or infectious pathology such as urinary tract infection. Workup ordered including a CBC, CMP, beta hydroxybutyrate, lipase, COVID fluid RSV, chest x-ray, urinalysis. CT with contrast was obtained and she was given Reglan, Dilaudid, 2 L of fluid resuscitation while workup pending. Workup shows no significant leukocytosis or anemia. Normal platelet level. Electrolyte panel shows a glucose 208, mildly elevated beta hydroxybutyrate, magnesium is low 1.4. Electrolytes otherwise largely unremarkable. No anion gap or any elevated acidosis. Negative lipase. Urinalysis with some ketones and glucose and mild blood, no signs of active infection. Negative COVID fluid RSV swabs. Chest x-ray shows some opacities consistent with mild interstitial edema or respiratory bronchiolitis. CT scan shows esophagitis, diffuse mild colitis, mild urinary bladder wall thickening although no cystitis on the urinalysis. Patient was re-evaluated and still having some retching and pain. She was provide additional Reglan and Dilaudid with improvement. Given her diffuse colitis in symptomatology we did start her on ciprofloxacin Flagyl for coverage although she does not have any significant white count elevation. Her blood pressure is starting to become higher but she did not take her evening dose or her morning dose of blood pressure medicines. These were provided p.o. and an EKG was also obtained. Magnesium was repleted secondary to her low levels in she would require admission at this time for observation and continued treatment. She was given p.r.n. medication orders and I spoke to the hospitalist Dr. Velasco who accepted her to the IMU given her elevated blood pressures for an observation admission. <Benjy Cheng MD - Last Filed: 08/07/24 22:18> Medical Records Attestation: I reviewed the patient's medical records. <Benjy Cheng MD - Last Filed: 08/07/24 22:18> Lab Data Attestation: I reviewed the patient's lab results. <Benjy Cheng MD - Last Filed: 08/07/24 22:18> Result diagrams: 08/07/24 20:11 08/07/24 20:11 <Jeet Sanchez PA-C - Last Filed: 08/07/24 17:13> Labs: Lab Results 08/07/24 08/07/24 Range/Units 17:19 20:11 WBC 9.9 (4.5-10.0) K/mm3 RBC 4.05 L (4.2-5.4) M/mm3 Hgb 13.4 (12.0-15.0) g/dL Hct 40.0 (37.0-47.0) % MCV 98.8 (80-100) fl MCH 33.1 (26-34) pg MCHC 33.5 (32-36) g/dl RDW 14.4 (11.5-14.5) % Plt Count 156 (150-375) k/mm3 MPV 9.9 (7.4-10.4) fl Immature Gran % (Auto) Not Reportable Neut % (Auto) Not Reportable Lymph % (Auto) Not Reportable [place] % (Auto) Not Reportable Eos % (Auto) Not Reportable Baso % (Auto) Not Reportable Lymph # (Auto) Not Reportable [place] # (Auto) Not Reportable Eos # (Auto) Not Reportable Baso # (Auto) Not Reportable Abs Immat Gran (auto) Not Reportable Absolute Neuts (auto) Not Reportable Absolute Nucleated RBC Not Reportable Total Counted 100 Neutrophils % (Manual) 87 H (46-73) % Band Neutrophils % 4 (0-6) % Lymphocytes % (Manual) 7.0 L (18-44) % Monocytes % (Manual) 2 L (3-9) % Nucleated RBC % Not Reportable Abs Neuts (Manual) 9.00 H (1.7-7.2) K/mm3 Abs Lymphs (Manual) 0.69 L (1.1-4.5) K/mm3 Abs Monocytes (Manual) 0.19 (0.1-0.90) K/mm3 Nucleated RBCs 1 % Platelet Estimate Adequate (Adequate) Anisocytosis 1+ Schistocytes None seen Sodium 135 L (137-145) mmol/L Potassium 3.4 (3.4-5.0) mmol/L Chloride 97 L (98-107) mmol/L Carbon Dioxide 27 (22-30) mmol/L Anion Gap 11 (4-12) mmol/L BUN 13 D (7-17) mg/dL Creatinine 0.61 L (0.7-1.0) mg/dL Estim Creat Clear Calc Not Reportable Estimated GFR > 60 (59 - ) Glucose 208 H (65-110) mg/dL Calcium 9.5 (8.4-10.2) mg/dL Magnesium 1.4 L (1.6-2.3) mg/dL Total Bilirubin 0.9 (0.2-1.3) mg/dL AST 23 (14-36) U/L ALT 12 (6-35) U/L Alkaline Phosphatase 67 (38-126) U/L Total Protein 8.0 (6.3-8.2) g/dL Albumin 4.2 (3.5-5.1) g/dL Lipase < 10 L (23-300) U/L Beta-Hydroxybutyrate/Acetoacetate 1.21 H (0.02-0.27) mmol/L Urine Color Yellow (Yellow) Urine Appearance Clear (Clear) Urine pH 8.5 (5.0-9.0) Ur Specific [place] 1.014 (1.001-1.035) Urine Protein 1+ H (Negative) mg/dL Urine Glucose (UA) 2+ H (Negative) mg/dL Urine Ketones 3+ H (Negative) mg/dL Ur Blood (Man) 1+ H (Negative) Urine Nitrate Negative (Negative) Urine Bilirubin Negative (Negative) Urine Urobilinogen 0.2 (<2.0) mg/dL Leukocyte Esterase Rfl Negative (Negative) SACHA/UL Urine RBC 6-10 H (0-2) /hpf Urine WBC 0-5 (0-3) /hpf Ur Squamous Epith Cells None seen (Few) /hpf Urine Bacteria None seen /hpf Urine Casts 0-2 Influenza A (RT-PCR) Negative (Negative) Influenza B (RT-PCR) Negative (Negative) RSV (RT-PCR) Negative (Negative) SARS-CoV-2 RNA (RT-PCR) Negative (Negative) <Jeet Sanchez PA-C - Last Filed: 08/07/24 17:13> Lab Results 08/07/24 08/07/24 Range/Units 17:19 20:11 WBC 9.9 (4.5-10.0) K/mm3 RBC 4.05 L (4.2-5.4) M/mm3 Hgb 13.4 (12.0-15.0) g/dL Hct 40.0 (37.0-47.0) % MCV 98.8 (80-100) fl MCH 33.1 (26-34) pg MCHC 33.5 (32-36) g/dl RDW 14.4 (11.5-14.5) % Plt Count 156 (150-375) k/mm3 MPV 9.9 (7.4-10.4) fl Immature Gran % (Auto) Not Reportable Neut % (Auto) Not Reportable Lymph % (Auto) Not Reportable [place] % (Auto) Not Reportable Eos % (Auto) Not Reportable Baso % (Auto) Not Reportable Lymph # (Auto) Not Reportable [place] # (Auto) Not Reportable Eos # (Auto) Not Reportable Baso # (Auto) Not Reportable Abs Immat Gran (auto) Not Reportable Absolute Neuts (auto) Not Reportable Absolute Nucleated RBC Not Reportable Total Counted 100 Neutrophils % (Manual) 87 H (46-73) % Band Neutrophils % 4 (0-6) % Lymphocytes % (Manual) 7.0 L (18-44) % Monocytes % (Manual) 2 L (3-9) % Nucleated RBC % Not Reportable Abs Neuts (Manual) 9.00 H (1.7-7.2) K/mm3 Abs Lymphs (Manual) 0.69 L (1.1-4.5) K/mm3 Abs Monocytes (Manual) 0.19 (0.1-0.90) K/mm3 Nucleated RBCs 1 % Platelet Estimate Adequate (Adequate) Anisocytosis 1+ Schistocytes None seen Sodium 135 L (137-145) mmol/L Potassium 3.4 (3.4-5.0) mmol/L Chloride 97 L (98-107) mmol/L Carbon Dioxide 27 (22-30) mmol/L Anion Gap 11 (4-12) mmol/L BUN 13 D (7-17) mg/dL Creatinine 0.61 L (0.7-1.0) mg/dL Estim Creat Clear Calc Not Reportable Estimated GFR > 60 (59 - ) Glucose 208 H (65-110) mg/dL Calcium 9.5 (8.4-10.2) mg/dL Magnesium 1.4 L (1.6-2.3) mg/dL Total Bilirubin 0.9 (0.2-1.3) mg/dL AST 23 (14-36) U/L ALT 12 (6-35) U/L Alkaline Phosphatase 67 (38-126) U/L Total Protein 8.0 (6.3-8.2) g/dL Albumin 4.2 (3.5-5.1) g/dL Lipase < 10 L (23-300) U/L Beta-Hydroxybutyrate/Acetoacetate 1.21 H (0.02-0.27) mmol/L Urine Color Yellow (Yellow) Urine Appearance Clear (Clear) Urine pH 8.5 (5.0-9.0) Ur Specific [place] 1.014 (1.001-1.035) Urine Protein 1+ H (Negative) mg/dL Urine Glucose (UA) 2+ H (Negative) mg/dL Urine Ketones 3+ H (Negative) mg/dL Ur Blood (Man) 1+ H (Negative) Urine Nitrate Negative (Negative) Urine Bilirubin Negative (Negative) Urine Urobilinogen 0.2 (<2.0) mg/dL Leukocyte Esterase Rfl Negative (Negative) SACHA/UL Urine RBC 6-10 H (0-2) /hpf Urine WBC 0-5 (0-3) /hpf Ur Squamous Epith Cells None seen (Few) /hpf Urine Bacteria None seen /hpf Urine Casts 0-2 Influenza A (RT-PCR) Negative (Negative) Influenza B (RT-PCR) Negative (Negative) RSV (RT-PCR) Negative (Negative) SARS-CoV-2 RNA (RT-PCR) Negative (Negative) <Benjy Cheng MD - Last Filed: 08/07/24 22:18> Imaging Data Attestation: I personally reviewed and interpreted this imaging study as follows: < Benjy Cheng MD - Last Filed: 08/07/24 22:18> My impression: Impressions Chest X-Ray 08/07/24 17:44 IMPRESSION: Pulmonary opacities may represent mild interstitial edema or respiratory bronchiolitis. Abdomen/Pelvis CT 08/07/24 21:36 IMPRESSION: Mild interstitial edema in the lung bases. Mild esophagitis and moderate gastritis. CT findings suggestive of mild diffuse colitis. Mild urinary bladder wall thickening. Presumed contrast excretion into the bladder lumen, noting that blood or other debris could appear similarly. Correlate with urinalysis. <Benjy Cheng MD - Last Filed: 08/07/24 22:18> Discharge Plan Discharge Clinical Impression: Intractable vomiting with nausea, Intractable abdominal pain, Colitis, URI (upper respiratory infection), Starvation ketoacidosis, Insulin dependent diabetes mellitus <Jeet Sanchez PA-C - Last Filed: 08/07/24 17:13> Patient Disposition: Still a Patient <Jeet Sanchez PA-C - Last Filed: 08/07/24 17:13> Condition: Stable <Jeet Sanchez PA-C - Last Filed: 08/07/24 17:13> Patient Language: [place] <Jeet Sanchez PA-C - Last Filed: 08/07/24 17:13> Prescriptions: No Action zolpidem [Ambien] 10 mg tablet 10 mg PO HS azathioprine 50 mg tablet 50 mg PO DAILY aspirin [Adult Aspirin Regimen] 81 mg tablet,delayed release (DR/EC) 81 mg PO DAILY omeprazole 20 mg capsule,delayed release(DR/EC) 20 mg PO DAILY furosemide [Lasix] 20 mg tablet 20 mg PO BID Qty: 20 0RF metoclopramide HCl [Reglan] 10 mg tablet 10 mg PO TIDWM PRN (Reason: Nausea And Vomiting) Qty: 90 3RF atorvastatin 20 mg Tablet 20 mg PO DAILY amlodipine 5 mg Tablet 5 mg PO BID cyanocobalamin (vitamin B-12) 500 mcg Tablet 1,000 mcg PO DAILY montelukast 10 mg Tablet 10 mg PO DAILY gabapentin 100 mg Capsule 100 mg PO TID epinephrine 0.3 mg/0.3 mL Auto-Injector 0.3 mg IM Q5-15M PRN (Reason: Anaphylaxis) Rx Instructions: do not exceed 3 doses per episode sertraline 50 mg Tablet 50 mg PO DAILY (DME) pen needle, diabetic [BD Ultra-Fine Mini Pen Needle] 31 gauge x 3/16 Needle MISCELLANEOUS biotin 5 mg Tablet 5 mg PO HS fluticasone furoate-vilanterol [Breo Ellipta] 100-25 mcg/dose Blister With Device 1 inh INHALATION DAILY Rx Instructions: INHALE 1 PUFF BY MOUTH DAILY- RINSE MOUTH WITH WATER AFTER USE. DO NOT SWALLOW (DME) FreeStyle Lynda 14 Day Sensor Kit MISCELLANEOUS tramadol 50 mg Tablet 100 mg PO Q6H PRN (Reason: Pain) cholecalciferol (vitamin D3) [Vitamin D3] 50 mcg (2,000 unit) Tablet 50 mcg PO DAILY insulin glargine U-300 conc [Toujeo SoloStar U-300 Insulin] 300 unit/mL (1.5 mL) Insulin Pen 28 unit SUBCUT DAILY Rx Instructions: INJECT 28 UNITS UNDER SKIN ONCE DAILY. MAX OF 30 UNITS PER DAY prednisone 5 mg tablet 5 mg PO DAILY divalproex 500 mg tablet,delayed release (DR/EC) 500 mg PO TID alprazolam 0.5 mg tablet 0.5 mg PO TID PRN (Reason: Anxiety) timolol maleate 0.5 % drops 2 drp EACH EYE BID Envarsus XR 1 mg tablet extended release 24 hr 3 mg PO DAILY Rx Instructions: TAKE 3 1MG TABLETS BY MOUTH IN THE FIRE CONTROLMAN BEFORE BREAKFAST. carvedilol [Coreg] 6.25 mg tablet 6.25 mg PO BIDWM metronidazole 500 mg tablet 500 mg PO Q12H 7 Days Qty: 14 0RF promethazine 25 mg suppository 25 mg RECTAL Q6H PRN (Reason: nausea and vomiting) Qty: 12 0RF Baqsimi 3 mg/actuation spray,non-aerosol 3 mg INTRANASAL PRN PRN (Reason: Hypoglycemia) fluticasone propionate 50 mcg/actuation [place],Suspension 2 spray INTRANASAL BID PRN (Reason: RHINITIS) Rx Instructions: administer 2 sprays into each nostril 2 times a day as needed for rhinits insulin lispro 100 unit/mL insulin pen, half-unit See Rx Instructions .ROUTE .COMPLEX Rx Instructions: 1:13 carb ratio with breakfast, 1:15 carb ratio with lunch and 1:13 carb ratio with supper plus sliding scale 1 unit for every 50 points greater than 150; MDD is 30 units cefdinir 300 mg capsule 300 mg PO Q12H 10 Days Qty: 10 0RF metronidazole 500 mg tablet 500 mg PO Q8H 10 Days Qty: 30 0RF ondansetron 4 mg tablet,disintegrating 4 mg PO Q8H PRN (Reason: nausea and vomiting) Qty: 10 0RF oxycodone 5 mg tablet 5 mg PO Q6H PRN (Reason: pain) Qty: 5 0RF potassium chloride 20 mEq tablet extended release 20 meq PO BID 5 Days Qty: 10 0RF Zenpep 60,000-189,600- 252,600 unit capsule,delayed release(DR/EC) 1 cap PO .ac Qty: 300 4RF Rx Instructions: administer with meals and/or snacks mirtazapine 15 mg tablet See Rx Instructions .ROUTE .COMPLEX Qty: 90 1RF Dose Instruction: TAKE 1 TABLET BY MOUTH AT BEDTIME. Rx Instructions: TAKE 1 TABLET BY MOUTH AT BEDTIME. <Jeet Sanchez PA-C - Last Filed: 08/07/24 17:13> Follow-up/Referrals: Nga,Ramon Cedeno MD [Primary Care Provider] - <Jeet Sanchez PA-C - Last Filed: 08/07/24 17:13> Time of Disposition: 22:18 <Jeet Sanchez PA-C - Last Filed: 08/07/24 17:13> 22:18 <Benjy Cheng MD - Last Filed: 08/07/24 22:18>
[2024-08-07] MEDS: ONDANSETRON HCL ODT 4 MG TABLET PO (17:25)
[2024-08-07 18:02] LABS: Influenza A QL RT-PCR Negative (Negative); Influenza B QL RT-PCR Negative (Negative); RSV RNA, RT-PCR Negative (Negative); SARS-CoV-2 RNA PCR Negative (Negative)
[2024-08-07] MEDS: LACTATED RINGERS 1,000 ML 999 ML IV CONT ×2 (19:03→19:18)
[2024-08-07] MEDS: METOCLOPRAMIDE HCL INJ 10 MG/2 ML VIAL IV PUSH ×2 (19:03→21:59)
[2024-08-07] MEDS: HYDROmorphone HCL INJ (*CRX) 1 MG/ML SYR IV PUSH ×2 (19:03→22:04)
[2024-08-07 19:25] VITALS: BP 203/102; PULSE 89; RESP 14; O2SAT 100
[2024-08-07 20:43] LABS: Hemoglobin 13.4 g/dL (12.0-15.0); Mean Corpuscular HGB Conc 33.5 g/dl (32-36); Mean Corpuscular Hemoglobin 33.1 pg (26-34); Mean Corpuscular Volume 98.8 fl (80-100); Mean Platelet Volume 9.9 fl (7.4-10.4); Platelet Count Result 156 k/mm3 (150-375); Red Blood Count 4.05 M/mm3 (4.2-5.4); Red Cell Distribution Width 14.4 % (11.5-14.5); White Blood Count 9.9 K/mm3 (4.5-10.0)
[2024-08-07 20:48] LABS: Alanine Aminotransferase 12 U/L (6-35); Albumin Level 4.2 g/dL (3.5-5.1); Alkaline Phosphatase 67 U/L (38-126); Anion Gap 11 mmol/L (4-12); Aspartate Amino Transferase 23 U/L (14-36); Bilirubin,Total 0.9 mg/dL (0.2-1.3); Blood Urea Nitrogen 13 mg/dL (7-17); Calcium 9.5 mg/dL (8.4-10.2); Carbon Dioxide 27 mmol/L (22-30); Chloride 97 mmol/L (98-107); Estimated Glomerular Filt Rate > 60; Glucose 208 mg/dL (65-110); Magnesium 1.4 mg/dL (1.6-2.3); Potassium 3.4 mmol/L (3.4-5.0); Sodium 135 mmol/L (137-145)
[2024-08-07 20:49] LABS: Add Urine Microscopic? YES; Appearance Urine Clear (Clear); Bacteria Urine None Seen /hpf; Bilirubin Urine Negative (Negative); Blood Urine 1+ (Negative); Color Urine Yellow (Yellow); Glucose Urine UA 2+ mg/dL (Negative); Ketones Urine 3+ mg/dL (Negative); Leukocyte Esterase Ur Negative LEU/UL (Negative); Nitrate Urine Negative (Negative); Non Pathogenic Casts 0-2; Protein Urine 1+ mg/dL (Negative); Specific Grav Ur 1.014 (1.001-1.035); Squamous Epithelial Cell Urine None Seen /hpf (Few); Urobilinogen Urine 0.2 mg/dL (<2.0); WBC Urine 0-5 /hpf (0-3); pH Urine 8.5 (5.0-9.0)
[2024-08-07 20:53] LABS: Beta-Hydroxybutyrate/Acetoacetate 1.21 mmol/L (0.02-0.27)
[2024-08-07 21:06] LABS: Lipase < 10 U/L (23-300)
[2024-08-07 21:09] LABS: Band Neutrophils Percent 4 % (0-6); Lymphocytes Absolute Manual 0.69 K/mm3 (1.1-4.5); Monocytes Absolute Manual 0.19 K/mm3 (0.1-0.90); Monocytes Percent Manual 2 % (3-9); Neutrophils Percent Manual 87 % (46-73); Nucleated Red Blood Cells 1 %; Platelet Estimate Adequate (Adequate); Schistocytes None Seen; Total Cells Counted 100
[2024-08-07 21:10] LABS: Anisocytosis 1+
[2024-08-07 21:40] VITALS: BP 212/97; PULSE 88; RESP 14; O2SAT 98
[2024-08-07] MEDS: metroNIDAZOLE 500 MG/ISO 100ML 500 MG/100 ML BAG 100 MG IVPB (22:03)
--- NOTE | 2024-08-07 22:10 | P.HP_ITS ---
H&P: HPI History of Present Illness Date/Time: 08/07/24 22:10 Chief Complaint: Nausea/vomit Narrative: This is a 49-year-old female with past medical history significant for type 1 diabetes mellitus, kidney failure status post kidney transplant, chronic abdominal pain, COPD, diabetic peripheral neuropathy, diabetic gastroparesis. Patient presents to the emergency room with history of 2 days of nausea vomiting unable to keep anything down unable to eat poor per orally intake, abdominal pain. Patient denies any fevers, rigors, chills, cough or sputum production. Preliminary workup was significant for chest x-ray with pulmonary opacities likely interstitial edema or bronchiolitis, CT of abdomen and pelvis was significant for gastritis and esophagitis. Patient has been admitted for further evaluation management and treatment. 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 RESULT: Lines, tubes, and devices: None. Lungs and pleura: Mild peripheral and lower lung reticulonodular opacities. Cardiomediastinal silhouette: Stable. Prominent central pulmonary arteries, could reflect pulmonary arterial hypertension Other: No acute osseous or upper abdominal finding. IMPRESSION: Pulmonary opacities may represent mild interstitial edema or respiratory bronchiolitis. EXAMINATION: CT abdomen pelvis w con DATE: 08/07/2024 21:31 INDICATION: frequency or urination, N/V TECHNIQUE: Computed tomography (CT) of the abdomen and pelvis was performed with 100 mL Omnipaque-350 intravenous contrast. Automated exposure control and iterative reconstruction technique were employed. The dose-length product was 315.92 mGy-cm. COMPARISON: 04/11/2024, 12/21/2023. FINDINGS: Lower thorax: Mild peripheral septal thickening. Liver: Normal. Biliary/Gallbladder: Gallbladder is normal. No bile duct dilation. Pancreas: Fatty atrophy. Spleen: Normal. Adrenals:No mass. Kidneys: Absent right kidney. Left renal atrophy. GI tract: Small hiatal hernia. Mild distal esophageal and moderate gastric wall edema. No small or large bowel dilation. Mild diffuse colonic wall mikki a/thickening with hyperemia. Appendix not confidently visualized, presumably surgically absent. Mesentery/Peritoneum: No ascites, mass, or free air. Retroperitoneum: No mass. Atherosclerotic abdominal aortic and/or arterial calcifications. Pelvis: Absent uterus. Mild urinary bladder wall thickening. Strand-like opacities in the bladder lumen, likely representing early contrast excretion. Right lower quadrant transplant kidney with focal lower pole atrophy. Soft Tissues: Dystrophic calcification within an incision scar in the right lower quadrant. Small uncomplicated fat-containing umbilical hernia. Bones: No acute osseous finding. IMPRESSION: Mild interstitial edema in the lung bases. Mild esophagitis and moderate gastritis. CT findings suggestive of mild diffuse colitis. Mild urinary bladder wall thickening. Presumed contrast excretion into the bladder lumen, noting that blood or other debris could appear similarly. Correlate with urinalysis. Review of Systems Review of Systems: Abdominal pain, nausea, vomiting, poor per orally intake. [facility], [facility] Past Medical History Medical History Post-menopausal Pancreatic insufficiency Hypertension MRSA infection Chronic obstructive pulmonary disease Diabetic nephropathy Type 1 diabetes mellitus Diabetic gastroparesis Surgical History Surgical History History of right nephrectomy Secondary to suspicious mass which turned out to be noncancerous. History of benign breast biopsy History of hysterectomy History of appendectomy (02/2019) History of kidney transplant (02/2019) [place] Family History Family History Grandparent Diabetes mellitus Grandparent Hypertension Social History Social History Social History: Surrogate medical decision maker: Aleja Mcghee, mother. Code status: Full code. Smoking packs per day: 1 Smoking cigarettes per day: 20.0 Years smoked: 10 Smoking pack-years: 10.00 Smoking status: Former smoker Tobacco type: cigarettes Second hand tobacco smoke exposure: No Smoking end date: 10/27/18 Alcohol intake: never Substance use: current Substance use type: marijuana Do You Feel Safe in your Home?: Yes Lack of Transportation: No Lack of Food: Never True Current Housing: I Have Housing Concerned About Future Housing: No Difficulty Paying Gas/Electric Bills: No Difficulty Paying for Meds: No Currently Unemployed: No Education: Don't Know Difficulty w/ Childcare or Family Care: No Spiritual care concerns: No Meds Home Medications and Allergies Home Medications ?Medication ?Instructions ?Recorded ?Confirmed ?Type aspirin 81 mg tablet,delayed 81 mg PO DAILY 08/30/20 04/13/24 History release (Adult Aspirin Regimen) azathioprine 50 mg tablet 50 mg PO DAILY 08/30/20 04/13/24 History omeprazole 20 mg capsule,delayed 20 mg PO DAILY 08/30/20 04/13/24 History release zolpidem 10 mg tablet (Ambien) 10 mg PO HS 08/30/20 04/13/24 History amlodipine 5 mg tablet 5 mg PO BID 12/22/23 04/13/24 History atorvastatin 20 mg tablet 20 mg PO DAILY 12/22/23 04/13/24 History biotin 5 mg tablet 5 mg PO HS 12/22/23 04/13/24 History cholecalciferol (vitamin D3) 50 50 mcg PO DAILY 12/22/23 04/13/24 History mcg (2,000 unit) tablet (Vitamin D3) cyanocobalamin (vitamin B-12) 500 1,000 mcg PO DAILY 12/22/23 04/13/24 History mcg tablet epinephrine 0.3 mg/0.3 mL 0.3 mg IM Q5-15M PRN Anaphylaxis 12/22/23 04/13/24 History injection, auto-injector flash glucose sensor (FreeStyle 12/22/23 04/13/24 History Lynda 14 Day Sensor kit) fluticasone furoate 100 1 inh inhalation DAILY 12/22/23 04/13/24 History mcg-vilanterol 25 mcg/dose inhalation powder (Breo Ellipta) gabapentin 100 mg capsule 100 mg PO TID 12/22/23 04/13/24 History insulin glargine U-300 conc 300 28 unit subcut DAILY 12/22/23 04/13/24 History unit/mL (1.5 mL) subcutaneous pen (Rigoberto SolChristina U-300 Insulin) montelukast 10 mg tablet 10 mg PO DAILY 12/22/23 04/13/24 History pen needle, diabetic 31 gauge x 12/22/23 04/13/24 History 10/11 (BD Ultra-Fine Mini Pen Needle) sertraline 50 mg tablet 50 mg PO DAILY 12/22/23 04/13/24 History tramadol 50 mg tablet 100 mg PO Q6H PRN Pain 12/22/23 04/13/24 History alprazolam 0.5 mg tablet 0.5 mg PO TID PRN Anxiety 01/10/24 04/13/24 History carvedilol 6.25 mg tablet (Coreg) 6.25 mg PO BIDWM 01/10/24 04/13/24 History divalproex 500 mg tablet,delayed 500 mg PO TID 01/10/24 04/13/24 History release prednisone 5 mg tablet 5 mg PO DAILY 01/10/24 04/13/24 History tacrolimus 1 mg tablet,extended 3 mg PO DAILY 01/10/24 04/13/24 History release 24 hr (Envarsus XR) timolol maleate 0.5 % eye drops 2 drp EACH EYE BID 01/10/24 04/13/24 History furosemide 20 mg tablet (Lasix) 20 mg PO BID #20 tabs 01/20/24 04/13/24 Rx metoclopramide HCl 10 mg tablet 10 mg PO TIDWM PRN Nausea And 01/20/24 04/13/24 Rx (Reglan) Vomiting #90 tabs metronidazole 500 mg tablet 500 mg PO Q12H 7 days #14 tabs 04/11/24 04/13/24 Rx promethazine 25 mg rectal 25 mg RECTAL Q6H PRN nausea and 04/11/24 04/13/24 Rx suppository vomiting #12 ea fluticasone propionate 50 2 spray intranasal BID PRN RHINITIS 04/13/24 04/13/24 History mcg/actuation nasal spray,suspension glucagon 3 mg/actuation nasal 3 mg intranasal PRN PRN 04/13/24 04/13/24 History spray (Baqsimi) Hypoglycemia insulin lispro 100 unit/mL See Rx Instructions .Route .COMPLEX 04/13/24 04/13/24 History subcutaneous half-unit pen cefdinir 300 mg capsule 300 mg PO Q12H 10 days #10 caps 04/15/24 Rx metronidazole 500 mg tablet 500 mg PO Q8H 10 days #30 tabs 04/15/24 Rx ondansetron 4 mg disintegrating 4 mg PO Q8H PRN nausea and 04/15/24 Rx tablet vomiting #10 tabs oxycodone 5 mg tablet 5 mg PO Q6H PRN pain #5 tabs 04/15/24 Rx potassium chloride 20 mEq 20 meq PO BID 5 days #10 tabs 04/15/24 Rx tablet,extended release lipase 60,000-protease 1 cap PO .ac #300 caps 05/28/24 Rx 189,600-amylase 252,600 unit capsule, delay rel (Zenpep) mirtazapine 15 mg tablet See Rx Instructions .Route 07/10/24 Rx .COMPLEX #90 tabs Allergies Allergy/AdvReac Type Severity Reaction Status Date / Time cyclobenzaprine Allergy Unknown Hives / Verified 04/09/24 13:50 Red Face tetracycline Allergy Unknown Nausea and Verified 04/09/24 13:50 Vomiting acetaminophen (From Tylenol) Allergy Nausea and Verified 04/09/24 13:50 Vomiting morphine AdvReac Itching Verified 04/09/24 13:50 Vital Signs Vital Signs - 24 hr 08/07/24 14:16 08/07/24 19:25 08/07/24 21:40 Temperature 97.5 F L Pulse Rate 61 89 88 Respiratory Rate 14 14 Blood Pressure 164/102 H 203/102 H 212/97 H Pulse Oximetry 100 100 98 Oxygen Delivery Room Air Exam Narrative: Laying in a stretcher Const: General: comfortable, no acute distress, well developed, alert, awake, ill appearing chronically and average body habitus Nutritional Appearance: average body habitus Orientation/consciousness: patient oriented x3 HENMT: Head: normal to inspection, normocephalic and atraumatic Ears: hearing grossly normal bilaterally Face/Nose/Sinus: normal facial exam Face and sinus: normal facial exam Other: old tracheostomy scar present Eyes: General: appearance normal, both eyes and all related structures Pupils: Equal, round and reactive pupils present EOM: EOMs intact bilaterally Neck: Neck: full ROM, no lymphadenopathy and no JVD Thyroid: thyroid normal Lymphatic: no lymphadenopathy noted Other: Old tracheostomy scar Resp: Effort & Inspection: normal respiratory effort and able to speak in complete sentences Auscultation: clear to auscultation bilaterally Cardio: Jugular venous distension: no JVD Rate: regular rate Rhythm: regular rhythm Heart sounds: S1 normal heart sound present and S2 normal heart sound present GI: GI Palp: Yes Soft to palpation and Yes No hepatosplenomegaly present : General: Yes deferred Skin: Rashes: no rashes Wounds: no wounds Neuro: General: patient oriented x3 and CN's II-XI intact bilaterally Cranial nerves: Yes CN's II-XII intact bilaterally and Yes Equal, round and reactive pupils present Cognition (Neuro): normal cognition Speech: normal speech Gait exam (Neuro): Normal gait present Motor exam (neuro): 5/5 motor strength present throughout Extrem: General: normal to inspection, full ROM, no joint enlargement and no pedal edema H&P: Results Labs Labs: Short CBC 08/07/24 Range/Units 20:11 WBC 9.9 (4.5-10.0) K/mm3 Hgb 13.4 (12.0-15.0) g/dL Hct 40.0 (37.0-47.0) % Plt Count 156 (150-375) k/mm3 BMP 08/07/24 20:11 Sodium 135 L Potassium 3.4 Chloride 97 L Carbon Dioxide 27 BUN 13 D Creatinine 0.61 L Glucose 208 H Calcium 9.5 Liver Function 08/07/24 Range/Units 20:11 Total Bilirubin 0.9 (0.2-1.3) mg/dL AST 23 (14-36) U/L ALT 12 (6-35) U/L Alkaline Phosphatase 67 (38-126) U/L Albumin 4.2 (3.5-5.1) g/dL Urine 08/07/24 Range/Units 20:11 Urine Color Yellow (Yellow) Urine Appearance Clear (Clear) Urine pH 8.5 (5.0-9.0) Ur Specific [place] 1.014 (1.001-1.035) Urine Protein 1+ H (Negative) mg/dL Urine Glucose (UA) 2+ H (Negative) mg/dL Assessment and Plan Assessment and plan (1) Intractable vomiting with nausea: Code(s): R11.2 - Nausea with vomiting, unspecified Status: Acute Assessment and Plan: Admit to IMU NPO Clear liquid trial in a.m. Supportive care (2) Hypertensive urgency: Code(s): I16.0 - Hypertensive urgency Status: Acute Assessment and Plan: Hydralazine 10 mg IV push q.6 p.r.n. for systolic above 180 or above Resume home meds as needed (3) Esophagitis with gastritis: Code(s): K29.70 - Gastritis, unspecified, without bleeding; K20.90 - Esophagitis, unspecified without bleeding Status: Acute Assessment and Plan: PPI (4) Type 1 diabetes mellitus: Code(s): E10.9 - Type 1 diabetes mellitus without complications Status: Acute Assessment and Plan: Currently NPO Accu-Cheks q.6 (5) Pancreatic insufficiency: Code(s): K86.89 - Other specified diseases of pancreas Status: Acute Assessment and Plan: On insulin (6) Intractable abdominal pain: Code(s): R10.9 - Unspecified abdominal pain Status: Acute Assessment and Plan: Supportive care (7) Hypokalemia: Code(s): E87.6 - Hypokalemia Status: Acute Assessment and Plan: Replace as needed (8) Kidney transplant recipient: Code(s): Z94.0 - Kidney transplant status Status: Acute Assessment and Plan: Continue meds (9) Chronic obstructive pulmonary disease: Code(s): J44.9 - Chronic obstructive pulmonary disease, unspecified Status: Acute Assessment and Plan: Breathing treatments q.6 p.r.n. Hospitalist MIPS Advance Care Plan I have confirmed that the patient's Advanced Care Plan is present, code status is documented, or surrogate decision maker is listed in patient medical record.: Yes Medication Reconciliation I have utilized all available resources to obtain, update and review the pa adams current medications (includes all prescriptions, OTC, herbals, cannabis, and nutritional supplements).: Yes
[2024-08-07 22:12] VITALS: PULSE 88
[2024-08-07] MEDS: FAMOTIDINE 20 MG/2 ML VIAL IV PUSH (22:12)
[2024-08-07] MEDS: carvediloL 6.25 MG TABLET PO (22:12)
[2024-08-07] MEDS: amLODIPine BESYLATE 5 MG TABLET PO (22:12)
[2024-08-07 22:30] VITALS: BP 154/84; PULSE 83; RESP 14; O2SAT 96
[2024-08-07] MEDS: CIPROFLOXACIN 400 MG/D5W 200ML 200 ML 200 MG IVPB (23:09)
[2024-08-07 23:42] VITALS: BP 139/80; PULSE 81; RESP 14; O2SAT 95
[2024-08-08] VITALS (16 sets, daily range): BP systolic 143–181; BP diastolic 78–92; PULSE 71–108; RESP 13–20; TEMP 36.6–36.7; O2SAT 90–100; BMI 20.5
--- NOTE | 2024-08-08 00:28 | ECG_ITS ---
Test Date: 2024-08-08 00:28:24 Measurements Intervals [place] Rate: 74 P: 31 ME: 127 QRS: 10 QRSD: 93 T: 111 QT: 438 QTc: 488 Interpretive Statements SINUS RHYTHM POSSIBLE LEFT ATRIAL ENLARGEMENT [-0.1mV P-WAVE IN V1/V2] ST DEVIATION AND MODERATE T-WAVE ABNORMALITY, CONSIDER LATERAL ISCHEMIA [-0.1+ mV T-WAVE IN I/aVL/V5/V6] ABNORMAL ECG Electronically Signed On 08-08-2024 10:48:24 ELECTRONIC OPERATOR by Cricket Garcia M.D.
[2024-08-08] MEDS: LACTATED RINGERS 1,000 ML 125 ML IV CONT ×2 (00:34→17:00)
[2024-08-08] MEDS: MAGNESIUM SULF 2 GM/WATER 50ML 2 GM/50 ML BAG IVPB (00:34)
[2024-08-08] MEDS: HYDROmorphone HCL INJ (*CRX) 1 MG/ML SYR IV PUSH ×5 (02:18→20:58)
[2024-08-08] MEDS: ONDANSETRON INJ 4 MG/2 ML VIAL IV PUSH (02:18)
[2024-08-08] MEDS: SUCRALFATE SUSP 100 MG/ML 10 ML UDC 1000 MG PO ×3 (06:58→21:02)
[2024-08-08] MEDS: LIPASE/AMYLASE/PROTEASE 12,000 UNITS CAP 5 CAP PO ×3 (07:02→17:09)
[2024-08-08] MEDS: FLUTICASONE/SALMETEROL 115-21 MCG INHALER 1 PUFF 2 PUFF INHALATION ×2 (08:14→20:21)
[2024-08-08] MEDS: levoFLOXacin 750 MG/D5W 150 ML 750 MG/150 ML BAG 100 MG IVPB (08:34)
[2024-08-08] MEDS: PANTOPRAZOLE SODIUM IV 40 MG VIAL IV PUSH ×2 (09:03→21:00)
[2024-08-08] MEDS: ATORVASTATIN 20 MG TABLET PO (09:04)
[2024-08-08] MEDS: MONTELUKAST SODIUM 10 MG TABLET PO (09:04)
[2024-08-08] MEDS: GABAPENTIN 100 MG CAPSULE PO ×2 (09:05→17:11)
[2024-08-08] MEDS: carvediloL 6.25 MG TABLET PO ×2 (09:05→17:10)
[2024-08-08] MEDS: DIVALPROEX SODIUM DR 250 MG TABEC 500 MG PO ×2 (09:05→17:10)
[2024-08-08] MEDS: azaTHIOprine 50 MG TABLET PO (09:06)
[2024-08-08] MEDS: predniSONE 5 MG TABLET PO (09:06)
[2024-08-08] MEDS: TIMOLOL MALEATE 0.5% OP SOLN 5 ML BOTTLE 2 DROP EACH EYE ×2 (09:07→21:02)
[2024-08-08] MEDS: ALPRAZolam (*CRX) 0.5 MG TABLET PO ×3 (10:04→22:07)
[2024-08-08] MEDS: metroNIDAZOLE 500 MG/ISO 100ML 500 MG/100 ML BAG 100 MG IVPB ×2 (10:04→17:16)
--- NOTE | 2024-08-08 13:29 | P.PNIM_ITS ---
Progress Note: A&P Assessment and Plan (1) Intractable vomiting with nausea: Code(s): R11.2 - Nausea with vomiting, unspecified Status: Acute Assessment and Plan: Improving on clear liquid an advance as tolerated Supportive care (2) Hypertensive urgency: Code(s): I16.0 - Hypertensive urgency Status: Acute Assessment and Plan: Hydralazine 10 mg IV push q.6 p.r.n. for systolic above 180 or above Resumed Amlodipine (3) Esophagitis with gastritis: Code(s): K29.70 - Gastritis, unspecified, without bleeding; K20.90 - Esophagitis, unspecified without bleeding Status: Acute Assessment and Plan: PPI (4) Type 1 diabetes mellitus: Code(s): E10.9 - Type 1 diabetes mellitus without complications Status: Acute Assessment and Plan: Currently NPO Accu-Cheks q.6, lantus 5 units and titrate (5) Pancreatic insufficiency: Code(s): K86.89 - Other specified diseases of pancreas Status: Acute Assessment and Plan: On insulin (6) Intractable abdominal pain: Code(s): R10.9 - Unspecified abdominal pain Status: Acute Assessment and Plan: Supportive care (7) Hypokalemia: Code(s): E87.6 - Hypokalemia Status: Acute Assessment and Plan: Replace as needed (8) Kidney transplant recipient: Code(s): Z94.0 - Kidney transplant status Status: Acute Assessment and Plan: Continue meds (9) Chronic obstructive pulmonary disease: Code(s): J44.9 - Chronic obstructive pulmonary disease, unspecified Status: Acute Assessment and Plan: Breathing treatments q.[address] AP reviewed Blood and stool culture pending, C diff ordered Continue Levaquin and Flagyl IVF and encourage oral intake CHF exacerbation, diastolic CXR showed pulm edema ECHo from December showed grade I diastolic Hold lasix and repeat ECHO monitor DVT prophylaxis on Sq Lovenox Subjective Date/time seen: 08/08/24 13:29 Interval history: noted vomiting and diarrhea are improving. Review of Systems Review of Systems: Abdominal pain, nausea, vomiting, poor per orally intake. Exam Narrative: Laying in a stretcher Const: General: comfortable, no acute distress, well developed, alert, awake, ill appearing chronically and average body habitus Nutritional Appearance: average body habitus Orientation/consciousness: patient oriented x3 HENMT: Head: normal to inspection, normocephalic and atraumatic Ears: hearing grossly normal bilaterally Face/Nose/Sinus: normal facial exam Face and sinus: normal facial exam Other: old tracheostomy scar present Eyes: General: appearance normal, both eyes and all related structures Pupils: Equal, round and reactive pupils present EOM: EOMs intact bilaterally Neck: Neck: full ROM, no lymphadenopathy and no JVD Thyroid: thyroid normal Lymphatic: no lymphadenopathy noted Other: Old tracheostomy scar Resp: Effort & Inspection: normal respiratory effort and able to speak in com plete sentences Auscultation: clear to auscultation bilaterally Cardio: Jugular venous distension: no JVD Rate: regular rate Rhythm: regular rhythm Heart sounds: S1 normal heart sound present and S2 normal heart sound present : General: Yes deferred Skin: Rashes: no rashes Wounds: no wounds Neuro: General: patient oriented x3 and CN's II-XI intact bilaterally Cranial nerves: Yes CN's II-XII intact bilaterally and Yes Equal, round and reactive pupils present Cognition (Neuro): normal cognition Speech: normal speech Gait exam (Neuro): Normal gait present Motor exam (neuro): 5/5 motor strength present throughout Extrem: General: normal to inspection, full ROM, no joint enlargement and no pedal edema Objective Data Vital Signs Vital Signs: Vital Signs - 24 hr 08/07/24 14:16 08/07/24 19:25 08/07/24 21:40 Temperature 97.5 F L Pulse Rate 61 89 88 Respiratory Rate 14 14 Blood Pressure 164/102 H 203/102 H 212/97 H Pulse Oximetry 100 100 98 Oxygen Delivery Room Air 08/07/24 22:12 08/07/24 22:30 08/07/24 23:42 Temperature Pulse Rate 88 83 81 Respiratory Rate 14 14 Blood Pressure 154/84 H 139/80 Pulse Oximetry 96 95 Oxygen Delivery 08/08/24 01:30 08/08/24 01:56 08/08/24 03:54 Temperature Pulse Rate 77 80 Respiratory Rate 14 14 Blood Pressure 156/92 H 143/78 H Pulse Oximetry 97 98 98 Oxygen Delivery Room Air 08/08/24 03:55 08/08/24 06:47 08/08/24 07:34 Temperature Pulse Rate 78 81 91 Respiratory Rate 13 20 Blood Pressure 144/90 H 169/85 H Pulse Oximetry 95 96 Oxygen Delivery 08/08/24 09:05 08/08/24 09:12 08/08/24 11:13 Temperature Pulse Rate 92 93 96 Respiratory Rate 18 18 Blood Pressure 174/85 H 181/88 H Pulse Oximetry 99 98 Oxygen Delivery 08/08/24 13:24 Temperature Pulse Rate 79 Respiratory Rate 18 Blood Pressure 157/82 H Pulse Oximetry 98 Oxygen Delivery Intake/Output Intake/Output: Intake & Output 08/05/24 08/06/24 08/07/24 08/08/24 23:59 23:59 23:59 23:59 Intake Total 2100 1500 Balance 2100 1500 Meds/Results Medications: Active Medications Generic Name Dose Route Start Last Admin Trade Name Freq PRN Reason Stop Dose Admin Alprazolam 0.5 mg 08/08/24 04:37 08/08/24 10:04 Alprazolam (*Crx) 0.5 Mg Tablet PO 0.5 mg TID PRN Administration Anxiety Lipase/Protease/Amylase 5 cap 08/08/24 06:30 08/08/24 13:23 Lipase/Amylase/Protease 12,000 Units Cap PO 5 cap AC JJ Administration Atorvastatin Calcium 20 mg 08/08/24 09:00 08/08/24 09:04 Atorvastatin 20 Mg Tablet PO 20 mg DAILY JJ Administration Azathioprine 50 mg 08/08/24 09:00 08/08/24 09:06 Azathioprine 50 Mg Tablet PO 50 mg DAILY JJ Administration Carvedilol 6.25 mg 08/08/24 08:00 08/08/24 09:05 Carvedilol 6.25 Mg Tablet PO 6.25 mg BIDWM JJ Administration Divalproex Sodium 500 mg 08/08/24 09:00 08/08/24 09:[address] 250 Mg Tabec PO 500 mg TID JJ Administration Fluticasone Propionate 2 spray 08/08/24 04:37 Fluticasone Propionate 0.05% Na Spr 16 Gm Btl (*Bkc) NASAL BID PRN RHINITIS Gabapentin 100 mg 08/08/24 09:00 08/08/24 09:05 Gabapentin 100 Mg Capsule PO 100 mg TID JJ Administration Hydralazine HCl 10 mg 08/08/24 00:31 Hydralazine Hcl 20 Mg/Ml Vial IV PUSH Q8H PRN Blood Pressure - High Hydromorphone HCl 1 mg 08/08/24 00:31 08/08/24 09:59 Hydromorphone Hcl Inj (*Crx) 1 Mg/Ml Syr IV PUSH 1 mg Q3H PRN Administration Pain Rated 7-10 Lactated Ringer's 1,000 mls @ 125 mls/hr 08/07/24 22:15 08/08/24 09:00 Lr - Lactated Ringers Iv IV CONT Infused .Q8H JJ Infusion Levofloxacin/Dextrose 750 mg in 150 mls @ 100 mls/hr 08/08/24 08:00 08/08/24 10:10 Levaquin 750 Mg/D5w 150 Ml IVPB Infused Q24H JJ Infusion Metronidazole 500 mg in 100 mls @ 100 mls/hr 08/08/24 08:00 08/08/24 11:14 Flagyl 500 Mg/Iso Soln 100 Ml IVPB Infused Q8H JJ Infusion Metoclopramide HCl 5 mg 08/07/24 22:11 Metoclopramide Hcl 5 Mg Tablet PO Q8H PRN Nausea And Vomiting Mirtazapine 15 mg 08/08/24 21:00 Mirtazapine 15 Mg Tablet BY MOUTH QHS PENDING SALE TO [facility] Miscellaneous Information 1 each 08/08/24 00:01 Please Add Specific Parameters For Hydralazine Prn Reason High Blood Pressure XX 09/07/24 00:00 CLARIFY PENDING SALE TO [facility] Miscellaneous Information 1 each 08/08/24 00:01 (Insulin Glargine U-300 Conc [Toujeo Solostar U-300 Insulin] 300 Unit/Ml Is Nonformulary, XX 09/07/24 00:00 CLARIFY PENDING SALE TO [facility] Miscellaneous Information 1 each 08/08/24 00:01 (Tacrolimus [Envarsus Xr] 1 Mg Tablet Extended Release 24 Hr) Is Nonformulary, Can Patient XX 09/07/24 00:00 CLARIFY PENDING SALE TO [facility] Montelukast Sodium 10 mg 08/08/24 09:00 08/08/24 09:04 Montelukast Sodium 10 Mg Tablet PO 10 mg DAILY PENDING SALE TO [facility] Administration Non-Formulary Medication 28 unit 08/08/24 09:00 Insulin Glargine U-300 Conc [Toujeo Solostar U-300 Insulin] SUB-Q 09/07/24 08:59 DAILY PENDING SALE TO [facility] Non-Formulary Medication 3 mg 08/08/24 09:00 Tacrolimus [Envarsus Xr] PO 09/07/24 08:59 DAILY JJ Ondansetron HCl 4 mg 08/08/24 00:32 08/08/24 02:18 Ondansetron Inj 4 Mg/2 Ml Vial IV PUSH 4 mg Q6H PRN Administration Nausea And Vomiting Pantoprazole Sodium 40 mg 08/08/24 09:00 08/08/24 09:03 Pantoprazole Sodium Iv 40 Mg Vial IV PUSH 40 mg Q12HR JJ Administration Pantoprazole Sodium 40 mg 08/08/24 09:00 Pantoprazole 40 Mg Tablet PO QAM JJ Prednisone 5 mg 08/08/24 09:00 08/08/24 09:06 Prednisone 5 Mg Tablet PO 5 mg DAILY JJ Administration Fluticasone/Salmeterol 2 puff 08/08/24 08:00 08/08/24 08:14 Fluticasone/Salmeterol 115-21 Mcg Inhaler 1 Puff INHALATION 2 puff Q12HRT JJ Administration Sertraline HCl 50 mg 08/08/24 09:00 08/08/24 13:25 Sertraline Hcl 50 Mg Tablet PO Not Given DAILY JJ Sucralfate 1,000 mg 08/08/24 06:30 08/08/24 06:58 Sucralfate Susp 100 Mg/Ml 10 Ml Udc PO 1,000 mg ACHS JJ Administration Timolol Maleate 2 drop 08/08/24 09:00 08/08/24 09:07 Timolol Maleate 0.5% Op Soln 5 Ml Bottle EACH EYE 2 drop Q12HR JJ Administration Tramadol HCl 100 mg 08/08/24 04:37 Tramadol Hcl (*Crx) 50 Mg Tablet PO Q6H PRN Pain 4-6 Radiology Results: ITS Impressions Chest X-Ray 08/07/24 17:44 IMPRESSION: Pulmonary opacities may represent mild interstitial edema or respiratory bronchiolitis. Abdomen/Pelvis CT 08/07/24 21:36 IMPRESSION: Mild interstitial edema in the lung bases. Mild esophagitis and moderate gastritis. CT findings suggestive of mild diffuse colitis. Mild urinary bladder wall thickening. Presumed contrast excretion into the bladder lumen, noting that blood or other debris could appear similarly. Correlate with urinalysis. Labs Labs: Laboratory Results - last 24 hr 08/07/24 08/07/24 17:19 20:11 WBC 9.9 RBC 4.05 L Hgb 13.4 Hct 40.0 MCV 98.8 MCH 33.1 MCHC 33.5 RDW 14.4 Plt Count 156 MPV 9.9 Immature Gran % (Auto) Not Reportable Neut % (Auto) Not Reportable Lymph % (Auto) Not Reportable [place] % (Auto) Not Reportable Eos % (Auto) Not Reportable Baso % (Auto) Not Reportable Lymph # (Auto) Not Reportable [place] # (Auto) Not Reportable Eos # (Auto) Not Reportable Baso # (Auto) Not Reportable Abs Immat Gran (auto) Not Reportable Absolute Neuts (auto) Not Reportable Absolute Nucleated RBC Not Reportable Total Counted 100 Neutrophils % (Manual) 87 H Band Neutrophils % 4 Lymphocytes % (Manual) 7.0 L Monocytes % (Manual) 2 L Nucleated RBC % Not Reportable Abs Neuts (Manual) 9.00 H Abs Lymphs (Manual) 0.69 L Abs Monocytes (Manual) 0.19 Nucleated RBCs 1 Platelet Estimate Adequate Anisocytosis 1+ Schistocytes None seen Sodium 135 L Potassium 3.4 Chloride 97 L Carbon Dioxide 27 Anion Gap 11 BUN 13 D Creatinine 0.61 L Estim Creat Clear Calc Not Reportable Estimated GFR > 60 Glucose 208 H Calcium 9.5 Magnesium 1.4 L Total Bilirubin 0.9 AST 23 ALT 12 Alkaline Phosphatase 67 Total Protein 8.0 Albumin 4.2 Lipase < 10 L Beta-Hydroxybutyrate/Acetoacetate 1.21 H Urine Color Yellow Urine Appearance Clear Urine pH 8.5 Ur Specific [place] 1.014 Urine Protein 1+ H Urine Glucose (UA) 2+ H Urine Ketones 3+ H Ur Blood (Man) 1+ H Urine Nitrate Negative Urine Bilirubin Negative Urine Urobilinogen 0.2 Leukocyte Esterase Rfl Negative Urine RBC 6-10 H Urine WBC 0-5 Ur Squamous Epith Cells None seen Urine Bacteria None seen Urine Casts 0-2 Influenza A (RT-PCR) Negative Influenza B (RT-PCR) Negative RSV (RT-PCR) Negative SARS-CoV-2 RNA (RT-PCR) Negative
[2024-08-08] MEDS: traMADol HCL (*CRX) 50 MG TABLET 100 MG PO (17:11)
[2024-08-08] MEDS: [UNRECOGNIZED DRUG - REMARK] 1 EACH XX (17:18)
--- NOTE | 2024-08-08 18:20 | PHAR ---
PT'S HOME MED ENVARSUS XR 1 MG TAB VERIFIED BY PHARMACY
[2024-08-08] MEDS: MIRTAZAPINE 15 MG TABLET BY MOUTH (21:03)
[2024-08-08] MEDS: INSULIN ASPART (*BKC) 100 UNITS/ML SUB-Q (21:08)
[2024-08-08] MEDS: INSULIN GLARGINE (*BKC) 100 UNITS/ML SUB-Q (21:09)
[2024-08-08 21:18] LABS: Glucose Point of Care 289 mg/dl (65-105)
[2024-08-08] MEDS: traZODone HCL 50 MG TABLET 100 MG PO (22:07)
[2024-08-09] VITALS (19 sets, daily range): BP systolic 143–212; BP diastolic 76–109; PULSE 68–122; RESP 16–20; TEMP 36.6–37.1; O2SAT 96–100
[2024-08-09] MEDS: metroNIDAZOLE 500 MG/ISO 100ML 500 MG/100 ML BAG 100 MG IVPB ×3 (00:20→16:58)
[2024-08-09] MEDS: LACTATED RINGERS 1,000 ML 125 ML IV CONT (03:04)
[2024-08-09 04:59] LABS: Hematocrit 36.7 % (37.0-47.0); Hemoglobin 11.7 g/dL (12.0-15.0); Immature Platelet Fraction Pct 5.7 % (0.9-11.2); Mean Corpuscular HGB Conc 31.9 g/dl (32-36); Mean Corpuscular Hemoglobin 32.7 pg (26-34); Mean Corpuscular Volume 102.5 fl (80-100); Platelet Count Result 150 k/mm3 (150-375); Red Blood Count 3.58 M/mm3 (4.2-5.4); Red Cell Distribution Width 14.4 % (11.5-14.5); White Blood Count 6.6 K/mm3 (4.5-10.0)
[2024-08-09] MEDS: TACROLIMUS 1 MG 3 EACH PO (05:03)
[2024-08-09] MEDS: HYDROmorphone HCL INJ (*CRX) 1 MG/ML SYR IV PUSH ×4 (05:06→19:31)
[2024-08-09 05:16] LABS: Potassium 3.7 mmol/L (3.4-5.0)
[2024-08-09 05:22] LABS: Alanine Aminotransferase 7 U/L (6-35); Albumin Level 3.2 g/dL (3.5-5.1); Alkaline Phosphatase 50 U/L (38-126); Anion Gap 4 mmol/L (4-12); Aspartate Amino Transferase 19 U/L (14-36); Bilirubin,Total 0.6 mg/dL (0.2-1.3); Blood Urea Nitrogen 7 mg/dL (7-17); Calcium 8.6 mg/dL (8.4-10.2); Carbon Dioxide 27 mmol/L (22-30); Chloride 105 mmol/L (98-107); Estimated CRCL calculation 83 ml/min; Estimated Glomerular Filt Rate > 60; Glucose 96 mg/dL (65-110); Magnesium 1.7 mg/dL (1.6-2.3); Sodium 136 mmol/L (137-145)
[2024-08-09 05:34] LABS: Band Neutrophils Percent 2 % (0-6); Eosinophils Absolute Manual 0.06 K/mm3 (0.02-0.50); Eosinophils Percent Manual 1 % (0-4); Lymphocytes Absolute Manual 1.78 K/mm3 (1.1-4.5); Monocytes Absolute Manual 0.26 K/mm3 (0.1-0.90); Monocytes Percent Manual 4 % (3-9); Neutrophils Absolute Manual 4.48 K/mm3 (1.7-7.2); Neutrophils Percent Manual 66 % (46-73); Total Cells Counted 100
[2024-08-09 05:35] LABS: Anisocytosis 1+; Platelet Estimate Slightly Decreased (Adequate); Schistocytes None Seen; Smudge Cells PRESENT
[2024-08-09] MEDS: SUCRALFATE SUSP 100 MG/ML 10 ML UDC 1000 MG PO ×4 (06:21→22:00)
[2024-08-09] MEDS: LIPASE/AMYLASE/PROTEASE 12,000 UNITS CAP 5 CAP PO ×3 (07:43→16:58)
[2024-08-09] MEDS: hydrALAZINE HCL 20 MG/ML VIAL 10 MG IV PUSH (07:57)
[2024-08-09] MEDS: traMADol HCL (*CRX) 50 MG TABLET 100 MG PO (07:57)
[2024-08-09 08:02] LABS: Glucose Point of Care 89 mg/dl (65-105)
[2024-08-09] MEDS: DIVALPROEX SODIUM DR 250 MG TABEC 500 MG PO ×3 (08:30→16:59)
[2024-08-09] MEDS: predniSONE 5 MG TABLET PO (08:31)
[2024-08-09] MEDS: ATORVASTATIN 20 MG TABLET PO (08:31)
[2024-08-09] MEDS: PANTOPRAZOLE SODIUM IV 40 MG VIAL IV PUSH ×2 (08:31→20:42)
[2024-08-09] MEDS: azaTHIOprine 50 MG TABLET PO (08:31)
[2024-08-09] MEDS: amLODIPine BESYLATE 5 MG TABLET PO ×2 (08:32→16:59)
[2024-08-09] MEDS: ENOXAPARIN 40 MG/0.4 ML SYRINGE SUB-Q (08:32)
[2024-08-09] MEDS: carvediloL 6.25 MG TABLET PO ×2 (08:32→16:59)
[2024-08-09] MEDS: GABAPENTIN 100 MG CAPSULE PO ×3 (08:33→16:59)
[2024-08-09] MEDS: MONTELUKAST SODIUM 10 MG TABLET PO (08:33)
[2024-08-09] MEDS: levoFLOXacin 750 MG/D5W 150 ML 750 MG/150 ML BAG 100 MG IVPB (08:33)
[2024-08-09] MEDS: SERTRALINE HCL 50 MG TABLET PO (08:33)
[2024-08-09] MEDS: TIMOLOL MALEATE 0.5% OP SOLN 5 ML BOTTLE 2 DROP EACH EYE ×2 (09:00→22:00)
[2024-08-09] MEDS: ONDANSETRON INJ 4 MG/2 ML VIAL IV PUSH ×2 (09:58→20:41)
[2024-08-09] MEDS: PROMETHAZINE HCL 25 MG/ML AMPUL 12.5 MG IV PUSH (10:38)
[2024-08-09 12:08] LABS: Glucose Point of Care 262 mg/dl (65-105)
[2024-08-09] MEDS: SCOPOLAMINE 1 MG PATCH 1 PATCH TRANSDERM (13:02)
[2024-08-09] MEDS: INSULIN ASPART (*BKC) 100 UNITS/ML SUB-Q ×2 (13:03)
--- NOTE | 2024-08-09 15:36 | PM.IMPN ---
Progress Note: A&P Assessment and Plan (1) Intractable vomiting with nausea: Code(s): R11.2 - Nausea with vomiting, unspecified Status: Acute Assessment and Plan: still having vomiting Continue IVF and Scopolamine Continue PRN Promethazine (2) Hypertensive urgency: Code(s): I16.0 - Hypertensive urgency Status: Acute Assessment and Plan: Hydralazine 20 mg IV push q.6 p.r.n. for systolic above 180 or above Resumed Amlodipine adjust with clinical course (3) Esophagitis with gastritis: Code(s): K29.70 - Gastritis, unspecified, without bleeding; K20.90 - Esophagitis, unspecified without bleeding Status: Acute Assessment and Plan: PPI (4) Type 1 diabetes mellitus: Code(s): E10.9 - Type 1 diabetes mellitus without complications Status: Acute Assessment and Plan: Currently NPO Accu-Cheks q.6, lantus 5 units and titrate (5) Pancreatic insufficiency: Code(s): K86.89 - Other specified diseases of pancreas Status: Acute Assessment and Plan: On insulin (6) Intractable abdominal pain: Code(s): R10.9 - Unspecified abdominal pain Status: Acute Assessment and Plan: Supportive care (7) Hypokalemia: Code(s): E87.6 - Hypokalemia Status: Acute Assessment and Plan: Replace as needed monitor (8) Kidney transplant recipient: Code(s): Z94.0 - Kidney transplant status Status: Acute Assessment and Plan: Continue meds (9) Chronic obstructive pulmonary disease: Code(s): J44.9 - Chronic obstructive pulmonary disease, unspecified Status: Acute Assessment and Plan: Breathing treatments q.6 p.r.n. Plan Colitis diarrhea with vomiting CT AP reviewed Blood and stool culture pending, C diff ordered Continue Levaquin and Flagyl IVF and encourage oral intake CHF exacerbation, diastolic CXR showed pulm edema ECHo from December showed grade I diastolic Hold lasix and repeat ECHO monitor DVT prophylaxis on Sq Lovenox Subjective Date/time seen: 08/09/24 15:36 Interval history: still having vomiting and diarrhea are improving. Stool studies still pending started on Scopolamine patch Review of Systems Review of Systems: Abdominal pain, nausea, vomiting, poor per orally intake. Exam Narrative: Laying in a stretcher Const: General: comfortable, no acute distress, well developed, alert, awake, ill appearing chronically and average body habitus Nutritional Appearance: average body habitus Orientation/consciousness: patient oriented x3 HENMT: Head: normal to inspection, normocephalic and atraumatic Ears: hearing grossly normal bilaterally Face/Nose/Sinus: normal facial exam Face and sinus: normal facial exam Other: old tracheostomy scar present Eyes: General: appearance normal, both eyes and all related structures Pupils: Equal, round and reactive pupils present EOM: EOMs intact bilaterally Neck: Neck: full ROM, no lymphadenopathy and no JVD Thyroid: thyroid normal Lymphatic: no lymphadenopathy noted Other: Old tracheostomy scar Resp: Effort & Inspection: normal respiratory effort and able to speak in complete sentences Auscultation: clear to auscultation bilaterally Cardio: Jugular venous distension: no JVD Rate: regular rate Rhythm: regular rhythm Heart sounds: S1 normal heart sound present and S2 normal heart sound present : General: Yes deferred Skin: Rashes: no rashes Wounds: no wounds Neuro: General: patient oriented x3 and CN's II-XI intact bilaterally Cranial nerves: Yes CN's II-XII intact bilaterally and Yes Equal, round and reactive pupils present Cognition (Neuro): normal cognition Speech: normal speech Gait exam (Neuro): Normal gait present Motor exam (neuro): 5/5 motor strength present throughout Extrem: General: normal to inspection, full ROM, no joint enlargement and no pedal edema Objective Data Vital Signs Vital Signs: Vital Signs - 24 hr 08/08/24 16:00 08/08/24 16:00 08/08/24 17:10 Temperature 98.1 F Pulse Rate 80 108 H 75 Respiratory Rate 16 Blood Pressure 165/82 H Pulse Oximetry 90 Oxygen Delivery 08/08/24 18:00 08/08/24 20:00 08/08/24 20:00 Temperature 97.8 F Pulse Rate 85 78 72 Respiratory Rate 18 Blood Pressure 160/87 H Pulse Oximetry 100 Oxygen Delivery 08/08/24 20:24 08/08/24 20:24 08/08/24 22:00 Temperature Pulse Rate 82 71 Respiratory Rate 16 Blood Pressure Pulse Oximetry 96 Oxygen Delivery Room Air 08/09/24 00:00 08/09/24 00:00 08/09/24 02:00 Temperature 98.0 F Pulse Rate 71 71 71 Respiratory Rate 18 Blood Pressure 147/86 H Pulse Oximetry 100 Oxygen Delivery 08/09/24 04:00 08/09/24 04:00 08/09/24 06:00 Temperature 97.9 F Pulse Rate 93 80 68 Respiratory Rate 18 Blood Pressure 173/89 H Pulse Oximetry 100 Oxygen Delivery 08/09/24 08:00 08/09/24 08:00 08/09/24 08:03 Temperature 98.7 F Pulse Rate 106 H 106 H 98 Respiratory Rate 20 20 Blood Pressure 205/97 H Pulse Oximetry 96 96 Oxygen Delivery Room Air 08/09/24 08:32 08/09/24 09:52 08/09/24 12:00 Temperature Pulse Rate 106 H 122 H 122 H Respiratory Rate 20 Blood Pressure Pulse Oximetry 96 Oxygen Delivery Room Air 08/09/24 12:00 08/09/24 12:05 08/09/24 12:19 Temperature 98.1 F Pulse Rate 122 H 114 H 103 H Respiratory Rate 20 Blood Pressure 212/109 H Pulse Oximetry 100 Oxygen Delivery Intake/Output Intake/Output: Intake & Output 08/06/24 08/07/24 08/08/24 08/09/24 23:59 23:59 23:59 23:59 Intake Total 2100 1600 2720 Output Total 900 1602 Balance 2100 700 1118 Meds/Results Medications: Active Medications Generic Name Dose Route Start Last Admin Trade Name Freq PRN Reason Stop Dose Admin Alprazolam 0.5 mg 08/08/24 04:37 08/08/24 22:07 Alprazolam (*Crx) 0.5 Mg Tablet PO 0.5 mg TID PRN Administration Anxiety Amlodipine Besylate 5 mg 08/08/24 17:00 08/09/24 08:32 Amlodipine Besylate 5 Mg Tablet PO 5 mg BID JJ Administration Lipase/Protease/Amylase 5 cap 08/08/24 06:30 08/09/24 11:00 Lipase/Amylase/Protease 12,000 Units Cap PO 5 cap AC JJ Administration Atorvastatin Calcium 20 mg 08/08/24 09:00 08/09/24 08:31 Atorvastatin 20 Mg Tablet PO 20 mg DAILY JJ Administration Azathioprine 50 mg 08/08/24 09:00 08/09/24 08:31 Azathioprine 50 Mg Tablet PO 50 mg DAILY JJ Administration Carvedilol 6.25 mg 08/08/24 08:00 08/09/24 08:32 Carvedilol 6.25 Mg Tablet PO 6.25 mg BIDWM JJ Administration Divalproex Sodium 500 mg 08/08/24 09:00 08/09/24 13:[address] 250 Mg Tabec PO 500 mg TID JJ Administration Enoxaparin Sodium 40 mg 08/09/24 09:00 08/09/24 08:32 Enoxaparin 40 Mg/0.4 Ml Syringe SUB-Q 40 mg DAILY JJ Administration Fluticasone Propionate 2 spray 08/08/24 04:37 Fluticasone Propionate 0.05% Na Spr 16 Gm Btl (*Bkc) NASAL BID PRN RHINITIS Gabapentin 100 mg 08/08/24 09:00 08/09/24 13:02 Gabapentin 100 Mg Capsule PO 100 mg TID JJ Administration Hydralazine HCl 10 mg 08/08/24 00:31 08/09/24 07:57 Hydralazine Hcl 20 Mg/Ml Vial IV PUSH 10 mg Q8H PRN Administration Blood Pressure - High Hydromorphone HCl 1 mg 08/08/24 00:31 08/09/24 14:10 Hydromorphone Hcl Inj (*Crx) 1 Mg/Ml Syr IV PUSH 1 mg Q3H PRN Administration Pain Rated 7-10 Lactated Ringer's 1,000 mls @ 125 mls/hr 08/07/24 22:15 08/09/24 03:04 Lr - Lactated Ringers Iv IV CONT 125 mls/hr .Q8H JJ Administration Levofloxacin/Dextrose 750 mg in 150 mls @ 100 mls/hr 08/08/24 08:00 08/09/24 08:33 Levaquin 750 Mg/D5w 150 Ml IVPB 100 mls/hr Q24H JJ Administration Metronidazole 500 mg in 100 mls @ 100 mls/hr 08/08/24 08:00 08/09/24 08:33 Flagyl 500 Mg/Iso Soln 100 Ml IVPB 100 mls/hr Q8H JJ Administration Dextrose 1,000 mls @ 100 mls/hr 08/08/24 19:13 Dextrose 5% 1,000 Ml IVPB PRN PRN Hypoglycemia Protocol Insulin Aspart 3 units 08/09/24 08:00 08/09/24 13:03 Insulin Aspart (*Bkc) 100 Units/Ml 0.05 units/kg (3 units) 3 units SUB-Q Administration TIDWM [facility] Insulin Aspart 2 - 5 units 08/09/24 08:00 08/09/24 13:03 Insulin Aspart (*Bkc) 100 Units/Ml SUB-Q 3 units TIDWM [facility] Administration Protocol Insulin Aspart 1 - 2 units 08/08/24 21:00 08/08/24 21:08 Insulin Aspart (*Bkc) 100 Units/Ml SUB-Q 1 units HS [facility] Administration Protocol Insulin Glargine 5 units 08/08/24 21:00 08/08/24 21:09 Insulin Glargine (*Bkc) 100 Units/Ml SUB-Q 5 units HS [facility] Administration Metoclopramide HCl 5 mg 08/07/24 22:11 Metoclopramide Hcl 5 Mg Tablet PO Q8H PRN Nausea And Vomiting Mirtazapine 15 mg 08/08/24 21:00 08/08/24 21:03 Mirtazapine 15 Mg Tablet BY MOUTH 15 mg QHS JJ Administration Miscellaneous Information 1 each 08/08/24 00:01 Please Add Specific Parameters For Hydralazine Prn Reason High Blood Pressure XX 09/07/24 00:00 CLARIFY JJ Miscellaneous Information 1 each 08/08/24 00:01 (Insulin Glargine U-300 Conc [Toujeo Solostar U-300 Insulin] 300 Unit/Ml Is Nonformulary, XX 09/07/24 00:00 CLARIFY [facility] Montelukast Sodium 10 mg 08/08/24 09:00 08/09/24 08:33 Montelukast Sodium 10 Mg Tablet PO 10 mg DAILY JJ Administration Non-Formulary Medication 28 unit 08/08/24 09:00 Insulin Glargine U-300 Conc [Toujeo Solostar U-300 Insulin] SUB-Q 09/07/24 08:59 DAILY JJ Non-Formulary ( 3 each 08/09/24 05:00 08/09/24 05:03 Tacrolimus 1 Mg Oral PO 09/08/24 04:59 3 each Tablet, Extended DAILY@0500 JJ Administration Release 24 Hr) Ondansetron HCl 4 mg 08/08/24 00:32 08/09/24 09:58 Ondansetron Inj 4 Mg/2 Ml Vial IV PUSH 4 mg Q6H PRN Administration Nausea And Vomiting Pantoprazole Sodium 40 mg 08/08/24 09:00 08/09/24 08:31 Pantoprazole Sodium Iv 40 Mg Vial IV PUSH 40 mg Q12HR JJ Administration Pantoprazole Sodium 40 mg 08/08/24 09:00 Pantoprazole 40 Mg Tablet PO QAM JJ Perflutren Lipid Microsphere 0 ml 08/08/24 13:34 Perflutren Lipid Microspheres 1.5 Ml Vial Diluted To 10 Ml Total Volume IV PUSH 08/11/24 13:34 ONCE PRN adequate visualization Protocol Prednisone 5 mg 08/08/24 09:00 08/09/24 08:31 Prednisone 5 Mg Tablet PO 5 mg DAILY JJ Administration Promethazine HCl 12.5 mg 08/09/24 10:15 08/09/24 10:38 Promethazine Hcl 25 Mg/Ml Ampul IV PUSH 12.5 mg Q4H PRN Administration Nausea And Vomiting Fluticasone/Salmeterol 2 puff 08/08/24 08:00 08/09/24 10:08 Fluticasone/Salmeterol 115-21 Mcg Inhaler 1 Puff INHALATION Not Given Q12HRT JJ Sertraline HCl 50 mg 08/08/24 09:00 08/09/24 08:33 Sertraline Hcl 50 Mg Tablet PO 50 mg DAILY JJ Administration Sucralfate 1,000 mg 08/08/24 06:30 08/09/24 10:38 Sucralfate Susp 100 Mg/Ml 10 Ml Udc PO 1,000 mg ACHS JJ Administration Timolol Maleate 2 drop 08/08/24 09:00 08/09/24 09:00 Timolol Maleate 0.5% Op Soln 5 Ml Bottle EACH EYE 2 drop Q12HR JJ Administration Tramadol HCl 100 mg 08/08/24 04:37 08/09/24 07:57 Tramadol Hcl (*Crx) 50 Mg Tablet PO 100 mg Q6H PRN Administration Pain 4-6 Radiology Results: ITS Impressions Chest X-Ray 08/07/24 17:44 IMPRESSION: Pulmonary opacities may represent mild interstitial edema or respiratory bronchiolitis. Abdomen/Pelvis CT 08/07/24 21:36 IMPRESSION: Mild interstitial edema in the lung bases. Mild esophagitis and moderate gastritis. CT findings suggestive of mild diffuse colitis. Mild urinary bladder wall thickening. Presumed contrast excretion into the bladder lumen, noting that blood or other debris could appear similarly. Correlate with urinalysis. Labs Labs: Laboratory Results - last 24 hr 08/08/24 08/09/24 08/09/24 21:06 04:49 07:58 WBC 6.6 RBC 3.58 L Hgb 11.7 L Hct 36.7 L MCV 102.5 H MCH 32.7 MCHC 31.9 L RDW 14.4 Plt Count 150 MPV 10.0 Immature Gran % (Auto) Not Reportable Neut % (Auto) Not Reportable Lymph % (Auto) Not Reportable [place] % (Auto) Not Reportable Eos % (Auto) Not Reportable Baso % (Auto) Not Reportable Lymph # (Auto) Not Reportable [place] # (Auto) Not Reportable Eos # (Auto) Not Reportable Baso # (Auto) Not Reportable Abs Immat Gran (auto) Not Reportable Absolute Neuts (auto) Not Reportable Absolute Nucleated RBC Not Reportable Total Counted 100 Neutrophils % (Manual) 66 Band Neutrophils % 2 Lymphocytes % (Manual) 27.0 Monocytes % (Manual) 4 Eosinophils % (Manual) 1 Nucleated RBC % Not Reportable Abs Neuts (Manual) 4.48 Abs Lymphs (Manual) 1.78 Abs Monocytes (Manual) 0.26 Absolute Eos (Manual) 0.06 Smudge Cells Present Platelet Estimate Slightly decreased % Immature Plt Fraction 5.7 Anisocytosis 1+ Schistocytes None seen Sodium 136 L Potassium 3.7 Chloride 105 Carbon Dioxide 27 Anion Gap 4 BUN 7 D Creatinine 0.61 L Estim Creat Clear Calc 83 Estimated GFR > 60 Glucose 96 POC Capillary Glucose 289 H 89 Calcium 8.6 Magnesium 1.7 Total Bilirubin 0.6 AST 19 ALT 7 Alkaline Phosphatase 50 Total Protein 7.0 Albumin 3.2 L 08/09/24 11:22 WBC RBC Hgb Hct MCV MCH MCHC RDW Plt Count MPV Immature Gran % (Auto) Neut % (Auto) Lymph % (Auto) [place] % (Auto) Eos % (Auto) Baso % (Auto) Lymph # (Auto) [place] # (Auto) Eos # (Auto) Baso # (Auto) Abs Immat Gran (auto) Absolute Neuts (auto) Absolute Nucleated RBC Total Counted Neutrophils % (Manual) Band Neutrophils % Lymphocytes % (Manual) Monocytes % (Manual) Eosinophils % (Manual) Nucleated RBC % Abs Neuts (Manual) Abs Lymphs (Manual) Abs Monocytes (Manual) Absolute Eos (Manual) Smudge Cells Platelet Estimate % Immature Plt Fraction Anisocytosis Schistocytes Sodium Potassium Chloride Carbon Dioxide Anion Gap BUN Creatinine Estim Creat Clear Calc Estimated GFR Glucose POC Capillary Glucose 262 H Calcium Magnesium Total Bilirubin AST ALT Alkaline Phosphatase Total Protein Albumin
[2024-08-09 16:14] LABS: Glucose Point of Care 91 mg/dl (65-105)
[2024-08-09] MEDS: METOCLOPRAMIDE HCL INJ 10 MG/2 ML VIAL IV PUSH (17:54)
[2024-08-09] MEDS: hydrALAZINE HCL 20 MG/ML VIAL IV PUSH (19:33)
[2024-08-09 19:40] LABS: Glucose Point of Care 70 mg/dl (65-105)
[2024-08-09] MEDS: FLUTICASONE/SALMETEROL 115-21 MCG INHALER 1 PUFF 2 PUFF INHALATION (20:16)
[2024-08-09] MEDS: DEXTROSE 5%/0.45% SOD CHL 1,000 ML 125 ML IV CONT (20:44)
[2024-08-09 21:13] LABS: Glucose Point of Care 240 mg/dl (65-105)
[2024-08-09] MEDS: MIRTAZAPINE 15 MG TABLET BY MOUTH (21:59)
[2024-08-09] MEDS: INSULIN GLARGINE (*BKC) 100 UNITS/ML SUB-Q (21:59)
[2024-08-09] MEDS: ALPRAZolam (*CRX) 0.5 MG TABLET PO (22:01)
[2024-08-09] MEDS: traZODone HCL 50 MG TABLET 100 MG BY MOUTH (22:01)
[2024-08-10] VITALS (23 sets, daily range): BP systolic 136–175; BP diastolic 73–95; PULSE 67–110; RESP 12–20; TEMP 36.7–37.4; O2SAT 94–100; BMI 19.4
--- NOTE | 2024-08-10 | ECHO_ITS ---
Patient Info Name: Juaquin Rey Age: 49 years : 1975 Gender: Female Ht: 65 in Wt: 116 lbs BSA: 1.55 m2 Exam Date: 08/10/2024 9:18 AM Exam Location: Echo Lab Patient Status: Inpatient Admit Date: 08/07/2024 Staff Ordering Physician: Archie Johnson MD Attending Provider: Lien Velasco MD Exam Type: CA echo doppler color flow Summary 1. Left ventricular systolic function is hyperdynamic, estimated at >70%. 2. There is mildly increased left ventricular wall thickness. 3. The left ventricular diastolic function is indeterminate. 4. There is mild mitral valve regurgitation. Left Ventricle Left ventricular chamber dimension is normal. Left ventricular systolic function is hyperdynamic, estimated at >70%. There is mildly increased left ventricular wall thickness. Left ventricular septal wall motion is normal. The left ventricular diastolic function is indeterminate. Right Ventricle Right ventricular chamber dimension is normal. Right ventricular systolic function is normal. Left Atria Left atrial chamber dimension is normal. Right Atria Right atrial chamber dimension is normal. Atrial Septum Intact interatrial septum visualized by color flow imaging. Aortic Valve The aortic valve is trileaflet. There is no aortic valve sclerosis. There is no aortic valve stenosis. There is no aortic valve regurgitation. Pulmonic Valve The pulmonic valve is normal. There is no pulmonic valve stenosis. There is no pulmonic regurgitation. Mitral Valve The mitral valve has normal leaflets. There is no mitral valve stenosis. There is mild mitral valve regurgitation. Tricuspid Valve The tricuspid valve leaflets are normal. There is no significant tricuspid valve stenosis. There is no tricuspid valve regurgitation. Pericardium/Pleural The pericardium appears normal. There is no pericardial effusion. Inferior Vena Cava Normal inferior vena cava with >50% collapse upon inspiration consistent with Empty right atrial pressure, 10 mmHg. Aorta The aortic root size at the sinus of Valsalva is normal. The prox ascending aorta size is normal. Left Ventricular Outflow Tract Name Value Normal LVOT 2D LVOT Diameter 1.8 cm LVOT Doppler LVOT Peak Gradient 7 mmHg LVOT Mean Gradient 4 mmHg LVOT VTI 24 cm LVOT VTI/AV VTI Ratio 0.8 LVOT Stroke Volume 58 ml LVOT CO 5.6 l/min LVOT CI 3.6 l/min/m2 Pulmonic Valve Name Value Normal RVOT Doppler RVOT Peak Gradient 6 mmHg PV Doppler PV Peak Gradient 6 mmHg Mitral Valve Name Value Normal MV Doppler MV Peak Gradient 3 mmHg MV Mean Gradient 2 mmHg MV Decel Weld 901 cm/s2 MV PHT 23 ms MV Area (PHT) 9.5 cm2 4.0-5.0 MV Area (Cont Eq VTI) 3.5 cm2 MV Diastolic Function MV E Peak Velocity 72 cm/s MV A Peak Velocity 71 cm/s MV E/A 1.0 MV Decel Time 80 ms MV Annular TDI MV E/e' (Septal) 12.5 <=8.0 MV E/e' (Lateral) 7.6 <=8.0 MV E/e' (Average) 10.0 Tricuspid Valve Name Value Normal Estimated PAP/RSVP RA Pressure 10 mmHg <=5 Aorta Name Value Normal Ascending Aorta Ao Root Diameter (MM) 3.1 cm Ao Root Diam Index (MM) 2.0 cm/m2 Aortic Valve Name Value Normal AV Doppler AV Peak Velocity 162 cm/s AV Peak Gradient 10 mmHg AV Mean Gradient 6 mmHg AV VTI 29 cm AV Area (Cont Eq VTI) 2.0 cm2 >=3.0 AV Area (Cont Eq Cruz) 2.0 cm2 AV Regurgitation 2D LVOT Area 2.5 cm2 Ventricles Name Value Normal LV Dimensions 2D/MM IVS Diastolic Thickness (2D) 1.2 cm 0.6-1.0 LVID Diastole (2D) 3.8 cm 3.8-5.2 LVIW Diastolic Thickness (2D) 1.6 cm 0.6-0.9 LVID Systole (2D) 2.7 cm 2.2-3.5 LVOT Diameter 1.8 cm LV Mass (2D Cubed) 196.76 g 67.00-162.00 LV Mass Index (2D Cubed) 127 g/m2 43-95 Relative Wall Thickness (2D) 0.82 LV Fractional Shortening/Ejection Fraction 2D/MM LV Fractional Shortening (2D) 29 % 27-45 LV EF (2D Teicholz) 57 % 54-74 LV Diastolic Volume (4C MOD) 72 ml LV EF (4C MOD) 69 % LV Diastolic Volume (2C MOD) 42 ml LV EF (2C MOD) 69 % LV Diastolic Volume (BP MOD) 58 ml 46-106 LV Diastolic Volume Index (BP MOD) 37 ml/m2 29-61 LV Systolic Volume (BP MOD) 18 ml 14-42 LV Systolic Volume Index (BP MOD) 11 ml/m2 8-24 LV EF (BP MOD) 69 % 54-74 LV Diastolic Length (4C) 6.7 cm LV Systolic Length (4C) 5.0 cm LV Stroke Volume (4C MOD) 49 ml Atria Name Value Normal LA Dimensions LA Dimension (MM) 3.6 cm 2.7-3.8 LA Volume (4C A-L) 53 ml LA Volume (BP A-L) 51 ml RA Dimensions RA Area (4C) 10.0 cm2 <=18.0 Report Signatures
[2024-08-10] MEDS: HYDROmorphone HCL INJ (*CRX) 1 MG/ML SYR IV PUSH ×7 (00:07→21:34)
[2024-08-10] MEDS: metroNIDAZOLE 500 MG/ISO 100ML 500 MG/100 ML BAG 100 MG IVPB ×2 (00:07→10:14)
[2024-08-10] MEDS: DEXTROSE 5%/0.45% SOD CHL 1,000 ML 125 ML IV CONT ×2 (01:57→09:54)
[2024-08-10] MEDS: TACROLIMUS 1 MG 3 EACH PO (04:37)
[2024-08-10 04:38] LABS: Basophils Percent Auto 0.4 % (0.2-1.2); Eosinophils Absolute Auto 0.4 K/mm3 (0-0.3); Hematocrit 43.2 % (37.0-47.0); Immature Granulocyte Absolute 0.03 K/mm3 (0.00-0.031); Immature Granulocyte Percent A 0.3 % (0-0.5); Lymphocytes Absolute Auto 1.89 K/mm3 (0.9-3.2); Lymphocytes Percent Auto 21.2 % (18.3-44.2); Mean Corpuscular HGB Conc 32.4 g/dl (32-36); Mean Corpuscular Hemoglobin 32.6 pg (26-34); Mean Corpuscular Volume 100.5 fl (80-100); Monocytes Percent Auto 11.3 % (2.6-8.5); Neutrophils Absolute Auto 5.6 K/mm3 (1.3-6.7); Neutrophils Percent Auto 62.8 % (45.5-73.1); Platelet Count Result 175 k/mm3 (150-375); Red Cell Distribution Width 14.5 % (11.5-14.5); White Blood Count 8.9 K/mm3 (4.5-10.0)
[2024-08-10 04:50] LABS: Alanine Aminotransferase 12 U/L (6-35); Albumin Level 3.9 g/dL (3.5-5.1); Alkaline Phosphatase 55 U/L (38-126); Anion Gap 4 mmol/L (4-12); Aspartate Amino Transferase 23 U/L (14-36); Bilirubin,Total 0.7 mg/dL (0.2-1.3); Blood Urea Nitrogen 6 mg/dL (7-17); Calcium 8.5 mg/dL (8.4-10.2); Carbon Dioxide 28 mmol/L (22-30); Chloride 100 mmol/L (98-107); Estimated CRCL calculation 75 ml/min; Estimated Glomerular Filt Rate > 60; Glucose 229 mg/dL (65-110); Magnesium 1.3 mg/dL (1.6-2.3); Potassium 3.8 mmol/L (3.4-5.0); Sodium 132 mmol/L (137-145)
[2024-08-10 04:52] LABS: Lactic Acid Reflex 1.2 mmol/L (0.7-2.0)
[2024-08-10] MEDS: SUCRALFATE SUSP 100 MG/ML 10 ML UDC 1000 MG PO ×4 (06:19→20:16)
--- NOTE | 2024-08-10 07:26 | PM.IMPN ---
Progress Note: A&P Assessment and Plan (1) Intractable vomiting with nausea: Code(s): R11.2 - Nausea with vomiting, unspecified Status: Acute Assessment and Plan: still having vomiting Continue IVF and Scopolamine Continue PRN Promethazine (2) Hypertensive urgency: Code(s): I16.0 - Hypertensive urgency Status: Acute Assessment and Plan: Hydralazine 20 mg IV push q.6 p.r.n. for systolic above 180 or above Resumed Amlodipine adjust with clinical course (3) Esophagitis with gastritis: Code(s): K29.70 - Gastritis, unspecified, without bleeding; K20.90 - Esophagitis, unspecified without bleeding Status: Acute Assessment and Plan: PPI (4) Type 1 diabetes mellitus: Code(s): E10.9 - Type 1 diabetes mellitus without complications Status: Acute Assessment and Plan: Currently NPO Accu-Cheks q.6, lantus 5 units and titrate (5) Pancreatic insufficiency: Code(s): K86.89 - Other specified diseases of pancreas Status: Acute Assessment and Plan: On insulin (6) Intractable abdominal pain: Code(s): R10.9 - Unspecified abdominal pain Status: Acute Assessment and Plan: Supportive care (7) Hypokalemia: Code(s): E87.6 - Hypokalemia Status: Acute Assessment and Plan: Replace as needed monitor (8) Kidney transplant recipient: Code(s): Z94.0 - Kidney transplant status Status: Acute Assessment and Plan: Continue meds (9) Chronic obstructive pulmonary disease: Code(s): J44.9 - Chronic obstructive pulmonary disease, unspecified Status: Acute Assessment and Plan: Breathing treatments q.6 p.r.n. Plan Colitis diarrhea with vomiting CT AP reviewed Blood and stool culture pending, C diff ordered Discontinued Levaquin due to QT prolongation and continue Flagyl Started Bactrim C diff pending IVFand encourage oral intake CHF exacerbation, diastolic CXR showed pulm edema ECHo from December showed grade I diastolic Hold lasix and repeat ECHO monitor DVT prophylaxis on Sq Lovenox Subjective Date/time seen: 08/10/24 07:26 Interval history: Given magnessium 2g. During the evaluation patient reports that she had this kind of episodes previously. Patient is currently able to tolerate her liquid diet and will advance as tolerated. Patient reports previously she had a bladder infection for which she completed ciprofloxacin on last Saturday. On the same day after finishing the ciprofloxacin patient developed nausea, vomiting, diarrhea. C diff has been ordered Review of Systems Review of Systems: Abdominal pain, nausea, vomiting, poor per orally intake. Exam Narrative: Laying in a stretcher Const: General: comfortable, no acute distress, well developed, alert, awake, ill appearing chronically and average body habitus Nutritional Appearance: average body habitus Orientation/consciousness: patient oriented x3 HENMT: Head: normal to inspection, normocephalic and atraumatic Ears: hearing grossly normal bilaterally Face/Nose/Sinus: normal facial exam Face and sinus: normal facial exam Other: old tracheostomy scar present Eyes: General: appearance normal, both eyes and all related structures Pupils: Equal, round and reactive pupils present EOM: EOMs intact bilaterally Neck: Neck: full ROM, no lymphadenopathy and no JVD Thyroid: thyroid normal Lymphatic: no lymphadenopathy noted Other: Old tracheostomy scar Resp: Effort & Inspection: normal respiratory effort and able to speak in complete sentences Auscultation: clear to auscultation bilaterally Cardio: Jugular venous distension: no JVD Rate: regular rate Rhythm: regular rhythm Heart sounds: S1 normal heart sound present and S2 normal heart sound present : General: Yes deferred Skin: Rashes: no rashes Wounds: no wounds Neuro: General: patient oriented x3 and CN's II-XI intact bilaterally Cranial nerves: Yes CN's II-XII intact bilaterally and Yes Equal, round and reactive pupils present Cognition (Neuro): normal cognition Speech: normal speech Gait exam (Neuro): Normal gait present Motor exam (neuro): 5/5 motor strength present throughout Extrem: General: normal to inspection, full ROM, no joint enlargement and no pedal edema Objective Data Vital Signs Vital Signs: Vital Signs - 24 hr 08/09/24 08:00 08/09/24 08:00 08/09/24 08:03 Temperature 98.7 F Pulse Rate 106 H 106 H 98 Respiratory Rate 20 20 Blood Pressure 205/97 H Pulse Oximetry 96 96 Oxygen Delivery Room Air 08/09/24 08:32 08/09/24 09:52 08/09/24 12:00 Temperature Pulse Rate 106 H 122 H 122 H Respiratory Rate 20 Blood Pressure Pulse Oximetry 96 Oxygen Delivery Room Air 08/09/24 12:00 08/09/24 12:05 08/09/24 12:19 Temperature 98.1 F Pulse Rate 122 H 114 H 103 H Respiratory Rate 20 Blood Pressure 212/109 H Pulse Oximetry 100 Oxygen Delivery 08/09/24 16:00 08/09/24 16:00 08/09/24 16:18 Temperature 98.4 F Pulse Rate 92 92 93 Respiratory Rate 20 20 Blood Pressure 143/76 H Pulse Oximetry 99 99 Oxygen Delivery Room Air 08/09/24 16:59 08/09/24 17:51 08/09/24 20:00 Temperature 98.7 F Pulse Rate 92 92 111 H Respiratory Rate 18 Blood Pressure 197/94 H Pulse Oximetry 100 Oxygen Delivery 08/09/24 20:00 08/09/24 20:16 08/09/24 20:40 Temperature Pulse Rate 100 105 H Respiratory Rate 16 Blood Pressure 187/99 H Pulse Oximetry Oxygen Delivery 08/09/24 22:00 08/10/24 00:00 08/10/24 00:00 Temperature 98.8 F Pulse Rate 110 H 110 H 110 H Respiratory Rate 20 Blood Pressure 175/84 H Pulse Oximetry Oxygen Delivery 08/10/24 02:00 08/10/24 04:00 08/10/24 04:00 Temperature 99.4 F Pulse Rate 94 100 104 H Respiratory Rate 20 Blood Pressure 161/85 H Pulse Oximetry Oxygen Delivery 08/10/24 06:00 Temperature Pulse Rate 109 H Respiratory Rate Blood Pressure Pulse Oximetry Oxygen Delivery Intake/Output Intake/Output: Intake & Output 08/07/24 08/08/24 08/09/24 08/10/24 23:59 23:59 23:59 23:59 Intake Total 2100 1600 2820 1600 Output Total 900 1602 1900 Balance 2100 700 1218 -300 Meds/Results Medications: Active Medications Generic Name Dose Route Start Last Admin Trade Name Freq PRN Reason Stop Dose Admin Alprazolam 0.5 mg 08/08/24 04:37 08/09/24 22:01 Alprazolam (*Crx) 0.5 Mg Tablet PO 0.5 mg TID PRN Administration Anxiety Amlodipine Besylate 5 mg 08/08/24 17:00 08/09/24 16:59 Amlodipine Besylate 5 Mg Tablet PO 5 mg BID JJ Administration Lipase/Protease/Amylase 5 cap 08/08/24 06:30 08/09/24 16:58 Lipase/Amylase/Protease 12,000 Units Cap PO 5 cap AC JJ Administration Atorvastatin Calcium 20 mg 08/08/24 09:00 08/09/24 08:31 Atorvastatin 20 Mg Tablet PO 20 mg DAILY JJ Administration Azathioprine 50 mg 08/08/24 09:00 08/09/24 08:31 Azathioprine 50 Mg Tablet PO 50 mg DAILY JJ Administration Carvedilol 6.25 mg 08/08/24 08:00 08/09/24 16:59 Carvedilol 6.25 Mg Tablet PO 6.25 mg BIDWM JJ Administration Divalproex Sodium 500 mg 08/08/24 09:00 08/09/24 16:[address] 250 Mg Tabec PO 500 mg TID JJ Administration Enoxaparin Sodium 40 mg 08/09/24 09:00 08/09/24 08:32 Enoxaparin 40 Mg/0.4 Ml Syringe SUB-Q 40 mg DAILY JJ Administration Fluticasone Propionate 2 spray 08/08/24 04:37 Fluticasone Propionate 0.05% Na Spr 16 Gm Btl (*Bkc) NASAL BID PRN RHINITIS Gabapentin 100 mg 08/08/24 09:00 08/09/24 16:59 Gabapentin 100 Mg Capsule PO 100 mg TID JJ Administration Hydralazine HCl 20 mg 08/09/24 15:36 08/09/24 19:33 Hydralazine Hcl 20 Mg/Ml Vial IV PUSH 20 mg Q8H PRN Administration Blood Pressure - High Hydromorphone HCl 1 mg 08/08/24 00:31 08/10/24 04:38 Hydromorphone Hcl Inj (*Crx) 1 Mg/Ml Syr IV PUSH 1 mg Q3H PRN Administration Pain Rated 7-10 Levofloxacin/Dextrose 750 mg in 150 mls @ 100 mls/hr 08/08/24 08:00 08/09/24 08:33 Levaquin 750 Mg/D5w 150 Ml IVPB 100 mls/hr Q24H JJ Administration Metronidazole 500 mg in 100 mls @ 100 mls/hr 08/08/24 08:00 08/10/24 00:07 Flagyl 500 Mg/Iso Soln 100 Ml IVPB 100 mls/hr Q8H JJ Administration Dextrose 1,000 mls @ 100 mls/hr 08/08/24 19:13 Dextrose 5% 1,000 Ml IVPB PRN PRN Hypoglycemia Protocol Dextrose/Sodium Chloride 1,000 mls @ 125 mls/hr 08/09/24 19:15 08/10/24 01:57 Dextrose 5% Sodium Chloride 0.45% IV CONT 125 mls/hr .Q8H JJ Administration Insulin Aspart 3 units 08/09/24 08:00 08/09/24 16:28 Insulin Aspart (*Bkc) 100 Units/Ml 0.05 units/kg (3 units) Not Given SUB-Q TIDWM JJ Insulin Aspart 2 - 5 units 08/09/24 08:00 08/09/24 16:28 Insulin Aspart (*Bkc) 100 Units/Ml SUB-Q Not Given TIDWM JJ Protocol Insulin Aspart 1 - 2 units 08/08/24 21:00 08/09/24 23:11 Insulin Aspart (*Bkc) 100 Units/Ml SUB-Q Not Given HS JJ Protocol Insulin Glargine 5 units 08/08/24 21:00 08/09/24 21:59 Insulin Glargine (*Bkc) 100 Units/Ml SUB-Q 5 units HS JJ Administration Metoclopramide HCl 5 mg 08/07/24 22:11 Metoclopramide Hcl 5 Mg Tablet PO Q8H PRN Nausea And Vomiting Mirtazapine 15 mg 08/08/24 21:00 08/09/24 21:59 Mirtazapine 15 Mg Tablet BY MOUTH 15 mg QHS JJ Administration Miscellaneous Information 1 each 08/08/24 00:01 08/10/24 00:40 Please Add Specific Parameters For Hydralazine Prn Reason High Blood Pressure XX 09/07/24 00:00 Not Given [facility] Miscellaneous Information 1 each 08/10/24 00:01 08/10/24 00:40 Need Blood Pressure Parameters For Prn Hydralazine XX 09/09/24 00:00 Not Given [facility] Montelukast Sodium 10 mg 08/08/24 09:00 08/09/24 08:33 Montelukast Sodium 10 Mg Tablet PO 10 mg DAILY JJ Administration Non-Formulary ( 3 each 08/09/24 05:00 08/10/24 04:37 Tacrolimus 1 Mg Oral PO 09/08/24 04:59 3 each Tablet, Extended DAILY@0500 JJ Administration Release 24 Hr) Ondansetron HCl 4 mg 08/08/24 00:32 08/09/24 20:41 Ondansetron Inj 4 Mg/2 Ml Vial IV PUSH 4 mg Q6H PRN Administration Nausea And Vomiting Pantoprazole Sodium 40 mg 08/08/24 09:00 08/09/24 20:42 Pantoprazole Sodium Iv 40 Mg Vial IV PUSH 40 mg Q12HR JJ Administration Pantoprazole Sodium 40 mg 08/08/24 09:00 Pantoprazole 40 Mg Tablet PO QAM JJ Perflutren Lipid Microsphere 0 ml 08/08/24 13:34 Perflutren Lipid Microspheres 1.5 Ml Vial Diluted To 10 Ml Total Volume IV PUSH 08/11/24 13:34 ONCE PRN adequate visualization Protocol Prednisone 5 mg 08/08/24 09:00 08/09/24 08:31 Prednisone 5 Mg Tablet PO 5 mg DAILY JJ Administration Promethazine HCl 12.5 mg 08/09/24 10:15 08/09/24 10:38 Promethazine Hcl 25 Mg/Ml Ampul IV PUSH 12.5 mg Q4H PRN Administration Nausea And Vomiting Fluticasone/Salmeterol 2 puff 08/08/24 08:00 08/09/24 20:16 Fluticasone/Salmeterol 115-21 Mcg Inhaler 1 Puff INHALATION 2 puff Q12HRT JJ Administration Sertraline HCl 50 mg 08/08/24 09:00 08/09/24 08:33 Sertraline Hcl 50 Mg Tablet PO 50 mg DAILY JJ Administration Sucralfate 1,000 mg 08/08/24 06:30 08/10/24 06:19 Sucralfate Susp 100 Mg/Ml 10 Ml Udc PO 1,000 mg ACHS JJ Administration Timolol Maleate 2 drop 08/08/24 09:00 08/09/24 22:00 Timolol Maleate 0.5% Op Soln 5 Ml Bottle EACH EYE 2 drop Q12HR JJ Administration Tramadol HCl 100 mg 08/08/24 04:37 08/09/24 07:57 Tramadol Hcl (*Crx) 50 Mg Tablet PO 100 mg Q6H PRN Administration Pain 4-6 Radiology Results: ITS Impressions Chest X-Ray 08/07/24 17:44 IMPRESSION: Pulmonary opacities may represent mild interstitial edema or respiratory bronchiolitis. Abdomen/Pelvis CT 08/07/24 21:36 IMPRESSION: Mild interstitial edema in the lung bases. Mild esophagitis and moderate gastritis. CT findings suggestive of mild diffuse colitis. Mild urinary bladder wall thickening. Presumed contrast excretion into the bladder lumen, noting that blood or other debris could appear similarly. Correlate with urinalysis. Labs Labs: Laboratory Results - last 24 hr 08/09/24 08/09/24 08/09/24 07:58 11:22 16:10 WBC RBC Hgb Hct MCV MCH MCHC RDW Plt Count MPV Immature Gran % (Auto) Neut % (Auto) Lymph % (Auto) Lamar % (Auto) Eos % (Auto) Baso % (Auto) Lymph # (Auto) [place] # (Auto) Eos # (Auto) Baso # (Auto) Abs Immat Gran (auto) Absolute Neuts (auto) Absolute Nucleated RBC Nucleated RBC % Sodium Potassium Chloride Carbon Dioxide Anion Gap BUN Creatinine Estim Creat Clear Calc Estimated GFR Glucose POC Capillary Glucose 89 262 H 91 Lactic Acid Calcium Magnesium Total Bilirubin AST ALT Alkaline Phosphatase Total Protein Albumin 08/09/24 08/09/24 08/10/24 16:54 20:38 04:32 WBC 8.9 RBC 4.30 Hgb 14.0 Hct 43.2 MCV 100.5 H MCH 32.6 MCHC 32.4 RDW 14.5 Plt Count 175 MPV 9.0 Immature Gran % (Auto) 0.3 Neut % (Auto) 62.8 Lymph % (Auto) 21.2 Lamar % (Auto) 11.3 H Eos % (Auto) 4.0 Baso % (Auto) 0.4 Lymph # (Auto) 1.89 [place]ar # (Auto) 1.0 H Eos # (Auto) 0.4 H Baso # (Auto) 0.0 Abs Immat Gran (auto) 0.03 Absolute Neuts (auto) 5.6 Absolute Nucleated RBC 0.000 Nucleated RBC % 0.0 Sodium 132 L Potassium 3.8 Chloride 100 Carbon Dioxide 28 Anion Gap 4 BUN 6 L Creatinine 0.64 L Estim Creat Clear Calc 75 Estimated GFR > 60 Glucose 229 H POC Capillary Glucose 70 240 H Lactic Acid 1.2 Calcium 8.5 Magnesium 1.3 L Total Bilirubin 0.7 AST 23 ALT 12 Alkaline Phosphatase 55 Total Protein 8.0 Albumin 3.9 Hospitalist [facility] Advance Care Plan I have confirmed that the patient's Advanced Care Plan is present, code status is documented, or surrogate decision maker is listed in patient medical record.: Yes Medication Reconciliation I have utilized all available resources to obtain, update and review the patients current medications (includes all prescriptions, OTC, herbals, cannabis, and nutritional supplements).: Yes
[2024-08-10] MEDS: LIPASE/AMYLASE/PROTEASE 12,000 UNITS CAP 5 CAP PO ×3 (07:44→18:07)
[2024-08-10 08:13] LABS: Glucose Point of Care 235 mg/dl (65-105)
[2024-08-10] MEDS: FLUTICASONE/SALMETEROL 115-21 MCG INHALER 1 PUFF 2 PUFF INHALATION ×2 (09:42→21:00)
[2024-08-10] MEDS: INSULIN ASPART (*BKC) 100 UNITS/ML SUB-Q ×4 (09:53→18:15)
[2024-08-10] MEDS: GABAPENTIN 100 MG CAPSULE PO ×3 (09:59→18:07)
[2024-08-10] MEDS: ENOXAPARIN 40 MG/0.4 ML SYRINGE SUB-Q (09:59)
[2024-08-10] MEDS: SERTRALINE HCL 50 MG TABLET PO (09:59)
[2024-08-10] MEDS: azaTHIOprine 50 MG TABLET PO (09:59)
[2024-08-10] MEDS: MONTELUKAST SODIUM 10 MG TABLET PO (09:59)
[2024-08-10] MEDS: carvediloL 6.25 MG TABLET PO ×2 (09:59→18:07)
[2024-08-10] MEDS: DIVALPROEX SODIUM DR 250 MG TABEC 500 MG PO ×3 (09:59→18:07)
[2024-08-10] MEDS: PANTOPRAZOLE SODIUM IV 40 MG VIAL IV PUSH ×2 (09:59→20:16)
[2024-08-10] MEDS: TIMOLOL MALEATE 0.5% OP SOLN 5 ML BOTTLE 2 DROP EACH EYE ×2 (10:00→20:17)
[2024-08-10] MEDS: amLODIPine BESYLATE 5 MG TABLET PO ×2 (10:00→18:08)
[2024-08-10] MEDS: ATORVASTATIN 20 MG TABLET PO (10:00)
[2024-08-10] MEDS: predniSONE 5 MG TABLET PO (10:01)
[2024-08-10] MEDS: MAGNESIUM SULF 2 GM/WATER 50ML 2 GM/50 ML BAG IVPB (10:50)
[2024-08-10 12:06] LABS: Glucose Point of Care 182 mg/dl (65-105)
[2024-08-10] MEDS: levoFLOXacin 750 MG/D5W 150 ML 750 MG/150 ML BAG 100 MG IVPB (12:14)
[2024-08-10] MEDS: traMADol HCL (*CRX) 50 MG TABLET 100 MG PO ×2 (13:35→20:15)
[2024-08-10 16:10] LABS: Glucose Point of Care 224 mg/dl (65-105)
[2024-08-10 18:28] LABS: Glucose Point of Care 273 mg/dl (65-105)
[2024-08-10 19:41] LABS: Glucose Point of Care 297 mg/dl (65-105)
[2024-08-10] MEDS: MIRTAZAPINE 15 MG TABLET BY MOUTH (20:16)
[2024-08-10] MEDS: metroNIDAZOLE 500 MG TABLET PO (20:16)
[2024-08-10] MEDS: traZODone HCL 50 MG TABLET PO (21:35)
[2024-08-10] MEDS: ALPRAZolam (*CRX) 0.5 MG TABLET PO (21:35)
[2024-08-10] MEDS: INSULIN GLARGINE (*BKC) 100 UNITS/ML SUB-Q (21:36)
[2024-08-10 21:42] LABS: Glucose Point of Care 180 mg/dl (65-105)
[2024-08-10] MEDS: hydrALAZINE HCL 20 MG/ML VIAL IV PUSH (23:36)
[2024-08-11] VITALS (10 sets, daily range): BP systolic 120–143; BP diastolic 63–72; PULSE 73–119; RESP 12–14; TEMP 36.2–36.3; O2SAT 98–99
[2024-08-11] MEDS: HYDROmorphone HCL INJ (*CRX) 1 MG/ML SYR IV PUSH ×2 (00:32→04:17)
[2024-08-11] MEDS: traMADol HCL (*CRX) 50 MG TABLET 100 MG PO (02:18)
[2024-08-11] MEDS: TACROLIMUS 1 MG 3 EACH PO (04:13)
[2024-08-11 04:47] LABS: Hematocrit 41.9 % (37.0-47.0); Hemoglobin 13.6 g/dL (12.0-15.0); Mean Corpuscular HGB Conc 32.5 g/dl (32-36); Mean Corpuscular Hemoglobin 32.9 pg (26-34); Mean Corpuscular Volume 101.2 fl (80-100); Mean Platelet Volume 9.3 fl (7.4-10.4); Platelet Count Result 177 k/mm3 (150-375); Red Blood Count 4.14 M/mm3 (4.2-5.4); Red Cell Distribution Width 14.3 % (11.5-14.5); White Blood Count 7.6 K/mm3 (4.5-10.0)
[2024-08-11 05:06] LABS: Alanine Aminotransferase 12 U/L (6-35); Albumin Level 3.9 g/dL (3.5-5.1); Alkaline Phosphatase 56 U/L (38-126); Anion Gap 6 mmol/L (4-12); Aspartate Amino Transferase 21 U/L (14-36); Bilirubin,Total 0.7 mg/dL (0.2-1.3); Blood Urea Nitrogen 7 mg/dL (7-17); Calcium 8.5 mg/dL (8.4-10.2); Carbon Dioxide 28 mmol/L (22-30); Chloride 102 mmol/L (98-107); Estimated CRCL calculation 79 ml/min; Estimated Glomerular Filt Rate > 60; Glucose 173 mg/dL (65-110); Potassium 3.5 mmol/L (3.4-5.0); Sodium 136 mmol/L (137-145)
[2024-08-11] MEDS: LIPASE/AMYLASE/PROTEASE 12,000 UNITS CAP 5 CAP PO ×2 (05:49→12:08)
[2024-08-11] MEDS: metroNIDAZOLE 500 MG TABLET PO ×2 (05:49→14:12)
[2024-08-11] MEDS: ALPRAZolam (*CRX) 0.5 MG TABLET PO (05:49)
[2024-08-11] MEDS: SUCRALFATE SUSP 100 MG/ML 10 ML UDC 1000 MG PO ×2 (05:49→12:08)
[2024-08-11 07:55] LABS: Glucose Point of Care 240 mg/dl (65-105)
[2024-08-11] MEDS: FLUTICASONE/SALMETEROL 115-21 MCG INHALER 1 PUFF 2 PUFF INHALATION (08:43)
[2024-08-11] MEDS: PANTOPRAZOLE SODIUM IV 40 MG VIAL IV PUSH (09:54)
[2024-08-11] MEDS: ENOXAPARIN 40 MG/0.4 ML SYRINGE SUB-Q (09:54)
[2024-08-11] MEDS: amLODIPine BESYLATE 5 MG TABLET PO (09:55)
[2024-08-11] MEDS: carvediloL 6.25 MG TABLET PO (09:55)
[2024-08-11] MEDS: azaTHIOprine 50 MG TABLET PO (09:55)
[2024-08-11] MEDS: ATORVASTATIN 20 MG TABLET PO (09:55)
[2024-08-11] MEDS: MONTELUKAST SODIUM 10 MG TABLET PO (09:55)
[2024-08-11] MEDS: predniSONE 5 MG TABLET PO (09:55)
[2024-08-11] MEDS: DIVALPROEX SODIUM DR 250 MG TABEC 500 MG PO ×2 (09:55→12:08)
[2024-08-11] MEDS: GABAPENTIN 100 MG CAPSULE PO ×2 (09:55→12:08)
[2024-08-11] MEDS: SULFAMETHOXAZOLE/TRIMETHOPRIM 800/160 MG DS TABLET 1 TAB PO (09:55)
[2024-08-11] MEDS: SERTRALINE HCL 50 MG TABLET PO (09:55)
[2024-08-11] MEDS: TIMOLOL MALEATE 0.5% OP SOLN 5 ML BOTTLE 2 DROP EACH EYE (09:56)
[2024-08-11] MEDS: INSULIN ASPART (*BKC) 100 UNITS/ML SUB-Q ×2 (09:57→12:16)
--- NOTE | 2024-08-11 10:32 | PM.DS ---
DS: Admitting Diagnosis Discharge Date 08/11/2024 Admitting Diagnosis Shortness of Breath/Dyspnea DS: Discharge Diagnosis Discharge Diagnosis (1) Intractable vomiting with nausea: Code(s): R11.2 - Nausea with vomiting, unspecified Status: Acute Assessment and Plan: Improved (2) Hypertensive urgency: Code(s): I16.0 - Hypertensive urgency Status: Acute Assessment and Plan: Resolved (3) Esophagitis with gastritis: Code(s): K29.70 - Gastritis, unspecified, without bleeding; K20.90 - Esophagitis, unspecified without bleeding Status: Acute Assessment and Plan: PPI Sucralfate (4) Type 1 diabetes mellitus: Code(s): E10.9 - Type 1 diabetes mellitus without complications Status: Acute Assessment and Plan: Continue home regimen (5) Pancreatic insufficiency: Code(s): K86.89 - Other specified diseases of pancreas Status: Acute Assessment and Plan: On insulin (6) Intractable abdominal pain: Code(s): R10.9 - Unspecified abdominal pain Status: Acute Assessment and Plan: Supportive care (7) Hypokalemia: Code(s): E87.6 - Hypokalemia Status: Acute Assessment and Plan: Replace as needed monitor (8) Kidney transplant recipient: Code(s): Z94.0 - Kidney transplant status Status: Acute Assessment and Plan: Continue meds (9) Chronic obstructive pulmonary disease: Code(s): J44.9 - Chronic obstructive pulmonary disease, unspecified Status: Acute Assessment and Plan: Breathing treatments q.6 p.r.n. DS: Summary Hospital Course Hospital Course: This is a 49-year-old female with past medical history significant for type 1 diabetes mellitus, kidney failure status post kidney transplant, chronic abdominal pain, COPD, diabetic peripheral neuropathy, diabetic gastroparesis. Patient presents to the emergency room with history of 2 days of nausea vomiting unable to keep anything down unable to eat poor per orally intake, abdominal pain. Patient denies any fevers, rigors, chills, cough or sputum production. Preliminary workup was significant for chest x-ray with pulmonary opacities likely interstitial edema or bronchiolitis, CT of abdomen and pelvis was significant for gastritis and esophagitis. Patient has been admitted for further evaluation management and treatment. During the hospitalization patient was treated for colitis. Patient started with clear liquid diet and advanced as tolerated. Patient is able to tolerate her regular food. Patient been treated with metronidazole and Bactrim for colitis. Patient has 2 more days to complete her course. Patient underwent echocardiogram on July which shows Left ventricular systolic function is hyperdynamic, estimated at >70%. Patient is currently doing well and advised to follow the below instructions: Contact your doctor or call 911 and come to the Emergency Room if you have any nausea,vomiting or diarrhea. Please complete Metronidazole 500mg PO every 8 hours until 08/12/2024 Please complete Bactrim DS PO two times day until 08/12/2024. Avoid NSAIDs (ibuprofen, naproxen, Aleve). Tylenol is safe to take. Follow-up with your primary care provider and pain management in 1-2 weeks. Please call for appointment. Time Spent with Patient Time attestation: Total time spent providing and/or coordinating discharge services: Exam Narrative: Laying in a stretcher Const: General: comfortable, no acute distress, well developed, alert, awake, ill appearing chronically and average body habitus Nutritional Appearance: average body habitus Orientation/consciousness: patient oriented x3 HENMT: Head: normal to inspection, normocephalic and atraumatic Ears: hearing grossly normal bilaterally Face/Nose/Sinus: normal facial exam Face and sinus: normal facial exam Other: old tracheostomy scar present Eyes: General: appearance normal, both eyes and all related structures Pupils: Equal, round and reactive pupils present EOM: EOMs intact bilaterally Neck: Neck: full ROM, no lymphadenopathy and no JVD Thyroid: thyroid normal Lymphatic: no lymphadenopathy noted Other: Old tracheostomy scar Resp: Effort & Inspection: normal respiratory effort and able to speak in complete sentences Auscultation: clear to auscultation bilaterally Cardio: Jugular venous distension: no JVD Rate: regular rate Rhythm: regular rhythm Heart sounds: S1 normal heart sound present and S2 normal heart sound present : General: Yes deferred Skin: Rashes: no rashes Wounds: no wounds Neuro: General: patient oriented x3 and CN's II-XI intact bilaterally Cranial nerves: Yes CN's II-XII intact bilaterally and Yes Equal, round and reactive pupils present Cognition (Neuro): normal cognition Speech: normal speech Gait exam (Neuro): Normal gait present Motor exam (neuro): 5/5 motor strength present throughout Extrem: General: normal to inspection, full ROM, no joint enlargement and no pedal edema DS: Data Data Completed and Pending Labs on day of discharge: Labs from last 24 hours 08/11/24 08/11/24 08/10/24 07:38 04:37 21:33 WBC 7.6 RBC 4.14 L Hgb 13.6 Hct 41.9 MCV 101.2 H MCH 32.9 MCHC 32.5 RDW 14.3 Plt Count 177 MPV 9.3 Sodium 136 L Potassium 3.5 Chloride 102 Carbon Dioxide 28 Anion Gap 6 BUN 7 Creatinine 0.63 L Estim Creat Clear Calc 79 Estimated GFR > 60 Glucose 173 H POC Capillary Glucose 240 H 180 H Calcium 8.5 Total Bilirubin 0.7 AST 21 ALT 12 Alkaline Phosphatase 56 Total Protein 7.0 Albumin 3.9 08/10/24 08/10/24 08/10/24 19:39 18:14 15:39 WBC RBC Hgb Hct MCV MCH MCHC RDW Plt Count MPV Sodium Potassium Chloride Carbon Dioxide Anion Gap BUN Creatinine Estim Creat Clear Calc Estimated GFR Glucose POC Capillary Glucose 297 H 273 H 224 H Calcium Total Bilirubin AST ALT Alkaline Phosphatase Total Protein Albumin 08/10/24 11:31 WBC RBC Hgb Hct MCV MCH MCHC RDW Plt Count MPV Sodium Potassium Chloride Carbon Dioxide Anion Gap BUN Creatinine Estim Creat Clear Calc Estimated GFR Glucose POC Capillary Glucose 182 H Calcium Total Bilirubin AST ALT Alkaline Phosphatase Total Protein Albumin Preliminary micro results at discharge 08/08/24 15:17 Blood Culture - Preliminary Blood 08/08/24 15:35 Blood Culture - Preliminary Blood Discharge Plan Discharge Attending physician on discharge: Jose Guadalupe Holt Discharging Clinician: Jose Guadalupe Holt Anticipated Discharge Date/Time: 08/11/24 10:19 Patient Disposition: Home, Self-Care Activity: as tolerated Diet: diabetic Discharge Instructions: Contact your doctor or call 911 and come to the Emergency Room if you have any nausea,vomiting or diarrhea. Please complete Metronidazole 500mg PO every 8 hours until 08/12/2024 Please complete Bactrim DS PO two times day until 08/12/2024. Avoid NSAIDs (ibuprofen, naproxen, Aleve). Tylenol is safe to take. Follow-up with your primary care provider ,credit resolution representative and pain management in 1-2 weeks. Please call for appointment. Patient Instructions: Antibiotic Form Patient Language: Jamaican Stand Alone Forms: General Discharge Information Follow-up/Referrals: Nga,Ramon Cedeno MD [Primary Care Provider] - Discharge Medications: New sucralfate 100 mg/mL Suspension 1,000 mg PO ACHS Qty: 15 0RF metronidazole 500 mg Tablet 500 mg PO Q8HR Qty: 6 0RF sulfamethoxazole-trimethoprim 800-160 mg Tablet 1 tab PO Q12HR Qty: 4 0RF oxycodone 5 mg tablet 5 mg PO Q8H PRN (Reason: pain) Qty: 7 0RF Continued zolpidem [Ambien] 10 mg tablet 10 mg PO HS azathioprine 50 mg tablet 50 mg PO DAILY aspirin [Adult Aspirin Regimen] 81 mg tablet,delayed release (DR/EC) 81 mg PO DAILY omeprazole 20 mg capsule,delayed release(DR/EC) 20 mg PO DAILY atorvastatin 20 mg Tablet 20 mg PO DAILY amlodipine 5 mg Tablet 5 mg PO BID cyanocobalamin (vitamin B-12) 500 mcg Tablet 1,000 mcg PO DAILY montelukast 10 mg Tablet 10 mg PO DAILY gabapentin 100 mg Capsule 100 mg PO TID epinephrine 0.3 mg/0.3 mL Auto-Injector 0.3 mg IM Q5-15M PRN (Reason: Anaphylaxis) Patient Comments: Hasn't taken in years Rx Instructions: do not exceed 3 doses per episode sertraline 50 mg Tablet 50 mg PO DAILY (DME) pen needle, diabetic [BD Ultra-Fine Mini Pen Needle] 31 gauge x 3/16 Needle MISCELLANEOUS biotin 5 mg Tablet 5 mg PO HS fluticasone furoate-vilanterol [Breo Ellipta] 100-25 mcg/dose Blister With Device 1 inh INHALATION DAILY Rx Instructions: INHALE 1 PUFF BY MOUTH DAILY- RINSE MOUTH WITH WATER AFTER USE. DO NOT SWALLOW (DME) FreeStyle Lynda 14 Day Sensor Kit MISCELLANEOUS tramadol 50 mg Tablet 100 mg PO Q6H PRN (Reason: Pain) cholecalciferol (vitamin D3) [Vitamin D3] 50 mcg (2,000 unit) Tablet 50 mcg PO DAILY insulin glargine U-300 conc [Toujeo SoloStar U-300 Insulin] 300 unit/mL (1.5 mL) Insulin Pen 24 unit SUBCUT DAILY Rx Instructions: INJECT 28 UNITS UNDER SKIN ONCE DAILY. MAX OF 30 UNITS PER DAY prednisone 5 mg tablet 5 mg PO DAILY divalproex 500 mg tablet,delayed release (DR/EC) 500 mg PO TID alprazolam 0.5 mg tablet 0.5 mg PO TID PRN (Reason: Anxiety) timolol maleate 0.5 % drops 2 drp EACH EYE BID Envarsus XR 1 mg tablet extended release 24 hr 3 mg PO DAILY Rx Instructions: TAKE 3 1MG TABLETS BY MOUTH IN THE PROPOSAL ANALYST BEFORE BREAKFAST. carvedilol [Coreg] 6.25 mg tablet 6.25 mg PO DAILY Baqsimi 3 mg/actuation spray,non-aerosol 3 mg INTRANASAL PRN PRN (Reason: Hypoglycemia) fluticasone propionate 50 mcg/actuation [place],Suspension 2 spray INTRANASAL BID PRN (Reason: RHINITIS) Rx Instructions: administer 2 sprays into each nostril 2 times a day as needed for rhinits insulin lispro 100 unit/mL insulin pen, half-unit See Rx Instructions .ROUTE .COMPLEX Rx Instructions: 1:13 carb ratio with breakfast, 1:15 carb ratio with lunch and 1:13 carb ratio with supper plus sliding scale 1 unit for every 50 points greater than 150; MDD is 30 units furosemide [Lasix] 20 mg tablet 20 mg PO DAILY Zenpep 60,000-189,600- 252,600 unit capsule,delayed release(DR/EC) 1 cap PO .ac Qty: 300 4RF Rx Instructions: administer with meals and/or snacks mirtazapine 15 mg tablet See Rx Instructions .ROUTE .COMPLEX Qty: 90 1RF Dose Instruction: TAKE 1 TABLET BY MOUTH AT BEDTIME. Rx Instructions: TAKE 1 TABLET BY MOUTH AT BEDTIME. Date of admission: 08/09/24 16:47 Primary Care Provider: Nga,Ramon Cedeno Admitting Provider: Lien Velasco V. Attending physician on admission: Lien Velasco V. Condition: Stable
== END 2024-08-11 14:46 | disposition home or self-care (01) | DRG 392 ==
LOC: ANHED 22:18 → ANHIMU 08-10 11:21
PROVIDERS: Internal Medicine; Physician Assistant; Admitting Provider Internal Medicine; Emergency Provider Student in an Organized Health Care Education/Training Program; PCP Internal Medicine; Visit Provider General Practice
DX: K52.9 Noninfective gastroenteritis and colitis, unspecified (principal); Z94.0 Kidney transplant status; I16.0 Hypertensive urgency; E10.21 Type 1 diabetes mellitus with diabetic nephropathy; E10.42 Type 1 diabetes mellitus with diabetic polyneuropathy; J44.9 Chronic obstructive pulmonary disease, unspecified; E87.6 Hypokalemia; E86.0 Dehydration; K20.90 Esophagitis, unspecified without bleeding; K29.70 Gastritis, unspecified, without bleeding; K86.89 Other specified diseases of pancreas; Z90.710 Acquired absence of both cervix and uterus; Z90.49 Acquired absence of other specified parts of digestive tract; Z79.82 Long term (current) use of aspirin; I11.0 Hypertensive heart disease with heart failure
CPT/HCPCS: 36415; 71045; 74177; 80053; 81001; 82010; 82948; 83605; 83690; 83735; 85025; 85027; 85055; 87040; 87637; 93005; 93306; 94640; 96361; 96365; 96368; 96375; 96376; 99285; A9270; J0360; J0744; J1171; J1650; J1815; J1836; J1956; J2405; J2470; J2550; J2765; J3475; J7120; J7512; Q9967

== ENCOUNTER 2024-12-11 10:38 | Emergency (ER) | payer MEDICARE, MEDICAID, SELFPAY ==
[2024-12-11 10:39] VITALS: BP 144/72; PULSE 78; RESP 16; TEMP 36.3; O2SAT 100
--- OUTSIDE RECORDS SUMMARY | 2024-12-11 10:41 | XMS_ITS | Clinical Summary ---
Author Organization [facility] Address [address] [place] [address] Care Team Providers Care Accounts Payable Lead Name Role Phone Ramon Sylvester MD Primary Care Provider [phone] Ramon Sylvester MD Unavailable [phone] Source Comments [facility],non-owned Affiliates and Associated Physician Practices is amultiple site organization consisting of ambulatory clinics and hospital [place]in [place] and [place]. This disclosure is being madepursuant to the Care Everywhere program and may not contain all information available regarding this patient. Last updated 18.[facility] Allergies Active Allergy Reactions Criticality Noted Date Comments Codeine Itching 04/20/2019 Cyclobenzaprine Unknown 10/12/2016 Metformin Diarrhea 04/20/2019 Morphine Itching 12/13/2017 Tetracycline 10/12/2016 Acetaminophen Nausea and/or Vomiting 04/17/2019 Medications * Be aware that medications may not be up to date on this document. Alwaysverify current medications with the patient. ALBUTEROL IN Inhale by mouth once daily as needed Active fluticasone-vi lanterol (BREO ELLIPTA) 100-25 MCG/INH inhaler Inhale 1 Puff by mouth once daily Administer at the same time each day. Rinse mouth after using Active Divalproex Sodium (DEPAKOTE PO) Take by mouth 2 times daily 500 mg in am/ 250 mg pm Active fluticasone propionate (FLONASE) 50 MCG/ACT nasal sprayIndicatio ns:Nasal Signs and Symptoms [place] 2 Sprays into each nostril once daily Reasons: Signs and Symptoms of Nose Diseases 1 Bottle 7 Active zolpidem (AMBIEN) 10 MG tablet Take 10 mg by mouth nightly as needed for Insomnia Active traMADol (ULTRAM) 50 MG tablet Take 100 mg by mouth 2 times daily Active montelukast (SINGULAIR) 10 MG tablet Take 10 mg by mouth once daily Active omeprazole (PRILOSEC) 20 MG capsule Take 20 mg by mouth daily before breakfast Active Insulin Glargine (TOUJEO SOLOSTAR SC) Inject 18 Units subcutaneously once daily Active vitamin D3 (CHOLECALCIFER OL) 1000 units tablet Take 2,000 Units by mouth once daily Active tacrolimus ER 24hr (ENVARSUS XR) 1 MG tablet Take 7 mg by mouth every morning Swallow whole. Do not crush, chew, or open capsule. Active predniSONE (DELTASONE) 5 MG tablet Take 5 mg by mouth once daily Active azaTHIOprine (IMURAN) 50 MG tablet Take 100 mg by mouth once daily Active sulfamethoxazo le-trimethopri m (BACTRIM DS; SEPTRA DS) 800-160 MG tablet Take 1 tablet by mouth once daily Active aspirin (ASPIRIN) 81 MG tablet Take 81 mg by mouth once daily Active Insulin Lispro (HUMALOG PEN SC) Inject subcutaneously 4 times daily Sliding scale Active atorvastatin (LIPITOR) 20 MG tablet Take 20 mg by mouth at bedtime Active ALPRAZolam (XANAX) 0.25 MG tablet Take 0.25 mg by mouth 2 times daily Active senna (SENOKOT) 8.6 MG tablet Take by mouth once daily Active gabapentin (NEURONTIN) 100 MG capsule Take 100 mg by mouth at bedtime Active HYDROcodone-ac etaminophen (NORCO) 5-325 MG tablet Take 1 tablet by mouth every 6 hours as needed for Pain 12 tablet 9 Active Additional Information Patient not taking.Reported on 04/30/2019 Active Problems Problem Noted Date Diagnosed Date ESRD (end stage renal disease) 12/11/2017 Family History Medical History Relation Name Comments Other Neg Hx negative Relation Name Status Comments Father Alive Mother Alive Social History Tobacco Use Types Packs/Day Years Used Date Smoking Tobacco: Former Cigarettes 1 6 0 11/06/2011 - 11/05/2017 Smokeless Tobacco: Never Alcohol Use Standard Drinks/Week Comments No 0 (1 standard drink = 0.6 oz pur e alcohol) Comments No Sex and Gender Information Value Date Recorded Sex Assigned at Not on file Legal Sex Female 11:42 AM CDT Gender Identity Not on file Sexual Orientation Not on file Last Filed Vital Signs Vital Sign Reading Time Taken Comments Blood Pressure 149/94 04/20/2019 11:26 AM CDT Pulse 75 04/20/2019 11:26 AM CDT Temperature 37.1 C (98.7 F) 04/20/2019 11:26 AM CDT Respiratory Rate 18 04/20/2019 11:26 AM CDT Oxygen Saturation 98% 04/20/2019 11:26 AM CDT Inhaled Oxygen Concentration - - Weight 56.7 kg (125 lb) 04/30/2019 10:09 AM CDT Height 157.5 cm (5' 2 ) 04/30/2019 10:09 AM CDT Body Mass Index 22.86 04/30/2019 10:09 AM CDT Plan of Treatment Health Maintenance Due Date Last Done Comments COLOGUARD (AGES 45-75) - COL ON CA SCREENING 1974 COLON MONITORING 1974 COLONOSCOPY - COLON CA SCREENING 1974 CT COLONOGRAPHY - COLON CA SCREENING 1974 Colorectal Cancer Screening 1974 FIT - COLON CA SCREENING 1974 FLEX SIG - COLON CA SCREENING 1974 MAMMOGRAM 1974 HIV SCREENING 1989 HEPATITIS C SCREENING 01/30/1992 DTAP/TDAP/TD VACCINES (1 - Tdap) 1993 HEPATITIS B VACCINE (1 of 3 - 19+ 3-dose series) 1993 PNEUMOCOCCAL VACCINE 50+ (1 of 1 - PCV) 02/04/2024 ZOSTER VACCINE (1 of 2) 02/04/2024 COVID-19 VACCINE (1 - 2023-2 5 season) 2024 DEPRESSION SCREENING 07/29/2024 INFLUENZA VACCINE (Season Ended) 2025 07/06/20 15 HIB VACCINE Aged Out No longer eligi ble based on patient's age to complete this topic HPV VACCINE Aged Out No longer eligi ble based on patient's age to complete this topic MENINGOCOCCAL (Group B) VACC INE SHARED DECISION-MAKING Aged Out No longer eligibl e based on patient's age to complete this topic MENINGOCOCCAL GROUPS A/C/Y/W VACCINE Aged Out No longer eligible b ased on patient's age to complete this topic Insurance MEDICARE [facility] Care Teams Accounts Payable Lead Relationship Specialty Start Date End Date Ramon Sylvester MD PCP - General Internal Medicine 10/19/16 Ramon Sylvester MD Internal Medicine 10/19/16
--- OUTSIDE RECORDS SUMMARY | 2024-12-11 10:41 | XMS_ITS | CONTINUITY OF CARE DOCUMENT ---
Author Name ricci wynne Address Unknown Organization [facility] Address [address] [place] [address] Phone [phone] Care Team Providers Care Chief Medical Director Name Role Phone Luis F Bansal MD Unavailable Luis F Bansal MD Unavailable [phone] INSURANCE PROVIDERS Payer name Policy type / Coverage type Alvin red republican [employer] Medicaid 3 [id number] [facility] CHRONIC COMPLETE ASSURE (PPO C-SNP) Medicare [id number]
--- OUTSIDE RECORDS SUMMARY | 2024-12-11 10:41 | XMS_ITS ---
Author Organization [facility] Address [address] [place] [address] Care Team Providers Care Gamma Operator Name Role Phone Ramon Sylvester MD Primary Care Provider [phone] Burak Blue MD Unavailable [phone] Juana Jimenez RN Unavailable Sylwia García MD Unavailable [phone] Igor Yeager DO Unavailable [phone] Cristina Boyer RN Unavailable [phone] Cyn Fang NP Unavailable Transplant Episode Kidney Recipient [facility] ([place], [place]) - [facility] Organ Received: Left Kidney Transplanted on 03/09/2019 Marked as Active Follow-up on 03/09/2019 Reason: Transplanted at [facility] Kidney CoordinatorJuana Jimenez RN Fax: N/A Email: N/A [place] Organ Diagnosis Organ Primary Contributory Kidney Diabetes Mellitus - Type II Infection History Noted Survival Infection Treatment Organism Resolved 06/03/2023 4 years 2 months COVID Donor Information Organ ABO Source Meets Risk Criteria HLA Match Mismatches Cross Match Left Kidney Transplanted A1 DBD Yes A: B: DR: Left Kidney Donor Serology Results Anti-CMV CMV IgG: Positive EBV IgG EBV VCA IgG: Positive Anti-HBcAb HBC Total: Negative HBsAg HBsAg: Negative HBV DNA No results on file Anti-HCV HCV: Positive Anti-HIV I/II No results on file Anti-HTLV I/II HTLV: Not Done RPR/VDRL RPR: Negative EBV IgM EBV VCA IgM: Negative HBsAb HBsAb: Not Done EBNA No results on file SARS CoV-2 No results on file Care Team Name Role Phone Fax Email Juana Jimenez RN Kidney Coordinator [phone] N/A N/A Cristina Boyer RN Secondary Coordinator Secondary Kidney Coordinator [phone] N/A N/A Burak Blue MD Referring Physician [phone] N/A Kristen Finley Primary Assembler Truck Trailer N/A N/A N/A Jose De Jesus Barrios Secondary Assembler Truck Trailer N/A N/A N/A Diane Salomon Information Clerk Cashier [phone] N/A N/A Juana Jimenez RN Heel Padder [phone] N/A N/A Events Post-Transplant Pre-Transplant Admitted: 03/07/2019 Referred: 10/17/2017 Transplanted: 03/09/2019 Evaluation began: 8 Discharged: 03/12/2019 Committee: 12/08/2018 Center waitlisted: 9 Dialysis History Dialysis History Start End Type Comments Center 01/13/2018 03/09/2019 Peritoneal [facility] Dialysis Center Information Center Phone Fax Address [facility] [phone] [address] [employer] [facility] [address]
--- OUTSIDE RECORDS SUMMARY | 2024-12-11 10:41 | XMS_ITS | Encounter Summary ---
Author Organization [facility] Address [address] [place] [address] Care Team Providers Care Resistor Coater Name Role Phone Ramon Sylvester MD Primary Care Provider [phone] Ramon Sylvester MD Unavailable [phone] Encounter Details Date Type Department Care Team (Late st Contact Info) Description 12/11/2017 [facility] Outpatient Visit [facility] [address] [place] [address] [place] [id number] [id number] Social History Tobacco Use Types Packs/Day Years [...] on file Sexual Orientation Not on file documented as of this encounter Plan of Treatment Not on file documented as of this encounter Visit Diagnoses Not on filedocumented in this encounter Care Teams Resistor Coater Relationship Specialty Start Date End Date Ramon Sylvester MD PCP - General Internal Medicine 10/19/16 Ramon Sylvester MD Internal Medicine 10/19/16 documented as of this encounter
--- OUTSIDE RECORDS SUMMARY | 2024-12-11 10:41 | XMS_ITS | Data Portability ---
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 Peanut Blancher variances may occur. Despite proofreading, typographical errors may occur. Occasional wrong-word or 'zkswi-k-[id number]' substitutions may have occurred due to the inherent limitations of voice recording. Read the chart carefully and recognize, using context, where substitutions have occurred. Not available 01/28/2024 16:22:17 02/04/2024 02/04/2024 This note is dictated and transcribed by [employer]. Peanut Blancher variances may occur. Despite proofreading, typographical errors may occur. Occasional wrong-word or 'xutok-t-[id number]' substitutions may have occurred due to the inherent limitations of voice recording. Read the chart carefully and recognize, using context, where substitutions have occurred. Not available 02/04/2024 10:05:41 05/05/2024 05/05/2024 This note is dictated and transcribed by [employer]. Peanut Blancher variances may occur. Despite proofreading, typographical errors may occur. Occasional wrong-word or 'gziew-e-zmqf' substitutions may have occurred due to the inherent limitations of voice recording. Read the chart carefully and recognize, using context, where substitutions have occurred. Not available 05/05/2024 15:16:03 09/23/2024 09/23/2024 This note is dictated and transcribed by [employer]. Peanut Blancher variances may occur. Despite proofreading, typographical errors may occur. Occasional wrong-word or 'ngvax-e-ivyq' substitutions may have occurred due to the inherent limitations of voice recording. Read the chart carefully and recognize, using context, where substitutions have occurred. [email or web address] Not available 09/23/2024 15:26:31 Plan of Treatment Reminders Order Date Submit Date Provider Last Modified By Organization Details Last Modified Time Details Appointments None recorded. Lab None recorded. Referral None recorded. Procedures None recorded. Surgeries None recorded. Imaging None recorded. Medication Orders ketoconazol e 2 % topical cream 2024 025 [facility]/Pharmacy #[id number], [address], [place], [address], 5 15:26:59 ketoconazol e 2 % topical cream 2023 024 [facility]/Pharmacy #[id number], [address], [place], [address], 4 15:16:26 ketoconazol e 2 % topical cream 2023 024 [facility]/Pharmacy #[id number], [address], [place], [address], 4 10:06:13 Patient TargetsNo targets recorded. Patient InstructionsNo instructions recorded. Reason for Referral None Reported. Results Created Date Observation Date Name Description Value Unit Range Abnormal Flag Note LastModifiedBy Organization Detail LastModifiedTime 10/21/19 24 10/21/2023 US, duple x, arter ial, lower extre mity, compl ete No observ ation record ed. [email or web address] [facility] ([facility]) [address] [place], [address], 10/21/2023 13:31:53 10/21/19 24 10/21/2023 (BIANCA) ankle brach ial index * No observ ation record ed. [email or web address] [facility] ([facility]) [address] [place], [address], 10/21/2023 13:31:53 Result Notes None recorded. Problems Name Problem SNOMED Code Status Onset Date Resolution Date Notes Provider Name and Address Organization Details Recorded Time Metatarsalgia 29582289 Active 2018 Not Available [facility] 3 17:12:38 Tobacco user 401344052 Active Not Available [facility] 3 17:12:38 Disorder of shoulder 119205252 Active Not Available [facility] 3 17:12:38 Hypercholeste rolemia 56325793 Active 2018 Not Available [facility] 3 17:12:38 Chronic obstructive pulmonary disease 39369564 Active Not Available [facility] 3 17:12:38 Bipolar disorder 09232821 Active Not Available [facility] 3 17:12:38 Backache 998291476 Active Not Available [facility] 3 17:12:38 Heartburn 95955278 Active 2018 Not Available [facility] 3 17:12:38 Insomnia 406905840 Active Not Available [facility] 3 17:12:38 Raynaud's disease 109478912 Active Not Available [facility] 3 17:12:38 Asthma 788644700 Active 2018 Not Available [facility] 3 17:12:38 Fibromyalgia 430407864 Active 2018 Not Available [facility] 3 17:12:38 Blindness of one eye Active Not Available [facility] 3 17:12:38 Gastroesophag eal reflux disease 301636302 Active Not Available [facility] 3 17:12:39 Edema 840393453 Active Not Available [facility] 3 17:12:39 Low back pain 638633813 Active Not Available [facility] 3 17:12:39 Enthesopathy of hip region 10505302 Active Not Available [facility] 3 17:12:39 Bronchitis 60622703 Active 2018 Not Available [facility] 3 17:12:39 Depressive disorder 27164961 Active 2018 Not Available [facility] 3 17:12:39 Diabetic foot ulcer 577090730 Active 2019 Not Available [facility] 3 17:12:39 Diabetic foot ulcer 796644679 Active 2019 Not Available [facility] 3 17:12:39 Arthritis 3687472 Active 2018 Not Available [facility] 3 17:12:39 Osteoarthriti s 958835169 Active Not Available [facility] 3 17:12:39 Sleep disorder 94995098 Active 2018 Not Available [facility] 3 17:12:39 Calcium deposits in tendon 301018309 Active Not Available [facility] 3 17:12:40 Seasonal allergy 867882599 Active 2018 Not Available [facility] 3 17:12:40 Pain of shoulder region 17201810 Active Not Available [facility] 3 17:12:40 Anxiety 90234982 Active 2018 Not Available [facility] 3 17:12:40 Hyperlipidemi a 84207325 Active Not Available [facility] 3 17:12:40 Essential hypertension 11641115 Active Not Available [facility] 3 17:12:40 Noncompliance with treatment 3521981 Active 2019 Not Available [facility] 3 17:12:40 Diabetes mellitus 54570980 Active Not Available [facility] 3 17:12:40 Smoker 82844303 Active Not Available [facility] 3 17:12:40 Hyperglycemia 98289229 Active Not Available [facility] 3 17:12:40 Neck pain 66888585 Active Not Available [facility] 3 17:12:40 Gout 20981046 Active 2018 Not Available [facility] 3 17:12:41 Fissure in skin 99837604 Active 2018 Not Available [facility] 3 17:12:41 Environmental allergy 218895640 Active 2023 RAJNI Silva Zeferino [facility] 4 09:31:24 Anemia 405406065 Active 2023 Zoe Campbell null, [place] [facility] 4 09:31:39 Dialysis care Active 2023 Zoe Campbell null, [place] [facility] 4 09:32:07 Ear problem 511218194 Active 2023 Zoe Campbell null, [place] [facility] 4 09:32:17 Disorder of eye 901929495 Active 2023 Zoe Campbell null, [place] [facility] 4 09:32:26 Headache 08515288 Active 2023 Zoe Campbell null, [place] [facility] 4 09:32:53 Disease of liver 911543171 Active 2023 Zoe Campbell null, [place] [facility] 4 09:33:01 Kidney disease 82073317 Active 2023 Zoe Campbell null, [place] [facility] 4 09:33:25 Migraine 11364187 Active 2023 Zoe Campbell null, [place] [facility] 4 09:33:33 Peripheral vascular disease 819797700 Active 2023 Michael Mccrary DPM [address], [address], [place], [address] , [facility] 4 09:45:59 Cigarette smoker 00253571 Active 2023 Michael Mccrary DPM [address], [address], [place], [address] , [facility] 4 09:46:05 Onychomycosis of toenails 534318858 Active 2023 Michael Mccrary DPM [address], [address], [place], [address] , [facility] 4 09:47:01 Dystrophia unguium 42262805 Active 2023 Michael Mccrary DPM [address], [address], [place], [address] , [facility] 4 09:47:10 Diabetic peripheral neuropathy 242099723 Active 2023 Michael Mccrary DPM [address], [address], [place], [address] , [facility] 4 09:47:27 Notes:back/neck problems, di alysis, ear problems, eye problems, hepatitis, kidney disease, ulcers, use of blood thinners, use of NSAIDS, shivering/chills, generalized weakness, loss of appetite, difficulty sleeping, nausea/vomiting, non wound/sore, sneezing/runny nose, vision problems, ringing in ears Problem Notes None recorded. Procedures Surgical History Date Name Laterality Status Provider Name and Address Organization Details Recorded Time 09/23/19 25 Nail Debridement completed Michael Mccrary DPM [address], [address], [place], [address], [facility] 09/23/2024 15:26:25 01/28/20 24 Toenail avulsion completed Michael Mccrary DPM [address], [address], [place], [address], [facility] 01/28/2024 16:22:30 10/17/19 24 Nail Debridement completed Michael Mccrary DPM [address], [address], [place], [address], [facility] 10/17/2023 09:56:54 Appendectomy completed Zoe Campbell [email or web address] 10/17/2023 09:35:32 Hysterectomy completed Zoe Campbell [facility] 10/17/2023 09:35:39 transplant of kidney completed Zoe Campbell [facility] 10/17/2023 09:35:51 total nephrectomy completed Zoe Dodd [facility] 10/17/2023 09:36:56 Imaging Results Imaging Date Name Status LastModified by Organiz ation Details LastModified Time 10/21/2023 US, duplex, arterial, lower extremity, complete completed [email or web address] [facility] ([facility]) [address] [place], [address], 10/21/2023 13:31:53 10/21/2023 (BIANCA) ankle brachial index* completed [email or web address] [facility] ([facility]) [address] [place], [address], 10/21/2023 13:31:53 Procedure Notes None recorded. Medical Equipment None Reported. Allergies Allergen ID Allergen Name Allergen Category Reaction Reaction Severity Criticality Documentation Date Start Date Code Code System Note Provider Name and Address Organization Details Recorded Time 50208 tetracycl ine medicatio n vomiting Not available Not available 09/26/2022 17769 RxNorm Not Available [facility] 3 17:13:27 82620 morphine medicatio n Not available Not available Not available 09/26/2022 7052 RxNorm sever e itchi ng Not Available [facility] 3 17:13:27 69982 metformin medicatio n diarrhea Not available Not available 09/26/2022 6809 RxNorm Not Available [facility] 3 17:13:28 85153 cyclobenz aprine hydrochlo ride medicatio n hives Not available Not available 09/26/2022 92673 RxNorm Not Available [facility] 3 17:13:28 36785 codeine medicatio n Not available Not available Not available 09/26/2022 2670 RxNorm sever e itchi ng Not Available [facility] 3 17:13:28 Medications Name Sig Start Date Stop Date Status Note LastModified by Organization Details LastModified Time amoxicill in 500 mg capsule TAKE ONE CAPSULE TWICE DAILY UNTIL ALL TAKEN 10/16 completed Not Available Not Available Not Available furosemid e 40 mg tablet TAKE ONE TABLET TWICE DAILY 10/16 completed Not Available Not Available Not Available metolazon e 2.5 mg tablet TAKE 1 TABLET BY MOUTH ONCE A DAY 10/16 completed Not Available Not Available Not Available metformin 500 mg tablet Take 1 tablet every day by oral route. active Not Available Not Available No t Available neomycin- polymyxin -hydrocor t 3.5 mg/mL-10, 000 unit/mL-1 % ear solution INSTILL 3 DROPS INTO THE EAR FOUR TIMES DAILY FOR 10 DAYS 10/16 completed Not Available Not Available Not Available clonidine HCl 0.1 mg tablet TAKE 1 TABLET NEEDED IF SYSTOLIC BLOOD PRESSURE IS ABOVE 180. THEN CALL THE DOCTOR 10/16 completed Not Available Not Available Not Available carvedilo l 6.25 mg tablet TAKE 1 TABLET BY MOUTH TWICE A DAY WITH MEALS active Not Available Not Available No t Available prednison e 10 mg tablet Take by oral route. active Not Available Not Available No t Available atorvasta tin 20 mg tablet TAKE 1 TABLET BY MOUTH EVERY DAY active Not Available Not Available No t Available tizanidin e 2 mg tablet Take 1 tablet every 8 hours by oral route as needed. 10/16 completed Not Available Not Available Not Available divalproe x 250 mg tablet,de layed release TAKE 2 TABLETS IN THE MORNING AND 1 TABLET IN THE EVENING 10/16 completed Not Available Not Available Not Available loperamid e 2 mg capsule TAKE 1 CAPSULE FOUR TIMES A DAY NEEDED FOR DIARRHEA 10/16 completed Not Available Not Available Not Available azithromy cedrick 250 mg tablet TAKE 2 TABLETS BY MOUTH TODAY, THEN TAKE 1 TABLET DAILY FOR 4 DAYS DIRECTED active Not Available Not Available No t Available diltiazem CD 180 mg capsule,e xtended release 24 hr TAKE ONE CAPSULE TWICE DAILY 10/16 completed Not Available Not Available Not Available Glucagon Emergency Kit 1 mg solution for injection USE DIRECTED 10/16 completed Not Available Not Available Not Available ofloxacin 0.3 % eye drops INSTILL 5 DROPS INTO LEFT EAR TWICE DAILY 10/16 completed Not Available Not Available Not Available fluconazo le 150 mg tablet TAKE 1 TABLET (150 MG TOTAL) BY MOUTH ONCE FOR 1 DOSE. active Not Available Not Available No t Available hydrocodo ne 5 mg-acetam inophen 325 mg tablet TAKE 1 TABLET EVERY 6 HOURS NEEDED FOR PAIN 10/16 completed Not Available Not Available Not Available promethaz ine 25 mg rectal supposito ry INSERT 1 SUPPOSIT ORY RECTALLY EVERY 6 HOURS NEEDED FOR NAUSEA AND VOMITING active Not Available Not Available No t Available lisinopri l 20 mg tablet TAKE ONE TABLET TWICE DAILY 10/16 completed Not Available Not Available Not Available ondansetr on HCl 4 mg tablet TAKE 1 TABLET EVERY 6 HOURS NEEDED FOR NAUSEA OR VOMITING 10/16 completed Not Available Not Available Not Available prednison e 5 mg tablet TAKE 1 TABLET BY MOUTH EVERY DAY active Not Available Not Available No t Available haloperid ol 1 mg tablet TAKE 1 TABLET BY MOUTH 3 TIMES A DAY. 10/16 completed Not Available Not Available Not Available hydralazi ne 25 mg tablet TAKE ONE TABLET 4 TIMES DAILY 10/16 completed Not Available Not Available Not Available potassium chloride ER 10 mEq tablet,ex tended release TAKE ONE TABLET DAILY 10/16 completed Not Available Not Available Not Available metronida zole 500 mg tablet TAKE 1 TABLET BY MOUTH EVERY 8 HOURS active Not Available Not Available No t Available azathiopr ine 50 mg tablet TAKE 1 TABLET BY MOUTH EVERY DAY active Not Available Not Available No t Available ciproflox acin 250 mg tablet TAKE ONE TABLET TWICE DAILY FOR 7 DAYS 10/16 completed Not Available Not Available Not Available amlodipin e 5 mg tablet TAKE 1 TABLET BY MOUTH TWICE A DAY active Not Available Not Available No t Available prochlorp erazine maleate 10 mg tablet TAKE 1 TABLET EVERY SIX HOURS NEEDED FOR NAUSEA OR VOMITING 10/16 completed Not Available Not Available Not Available allopurin ol 100 mg tablet Take 1 tablet every day by oral route. 10/16 completed Not Available Not Available Not Available divalproe x 500 mg tablet,de layed release TAKE 1 TABLET BY MOUTH THREE TIMES A DAY active Not Available Not Available No t Available ciproflox acin 500 mg tablet TAKE 1 TABLET BY MOUTH EVERY 12 HOURS FOR 7 DAYS active Not Available Not Available No t Available sulfameth oxazole 800 mg-trimet hoprim 160 mg tablet TAKE 1 TABLET BY MOUTH EVERY 12 HOURS active Not Available Not Available No t Available aspirin 81 mg tablet,de layed release TAKE 1 TABLET BY MOUTH EVERY DAY active Not Available Not Available No t Available tramadol 50 mg tablet TAKE 2 TABLETS BY MOUTH EVERY 6 HOURS NEEDED FOR PAIN. active Not Available Not Available No t Available vancomyci n 1,000 mg intraveno us injection ADMINIST ER PER RN DIRECTIO N 10/16 completed Not Available Not Available Not Available simvastat in 40 mg tablet Take 1 tablet every day by oral route for 30 days. 10/16 completed Not Available Not Available Not Available glimepiri de 1 mg tablet Take 1 tablet every day by oral route. 10/16 completed Not Available Not Available Not Available water for injection , sterile injection solution USE TO RECONSTI TUTE ANTIBIOT IC DIRECTED AND DISCARD REMAINDE R. SINGLE USE ONLY. 10/16 completed Not Available Not Available Not Available alprazola m 0.5 mg tablet TAKE 1 TABLET BY MOUTH THREE TIMES A DAY NEEDED FOR ANXIETY active Not Available Not Available No t Available Zanaflex 4 mg tablet Take 1 tablet every 8 hours by oral route. 10/16 completed Not Available Not Available Not Available alprazola m 0.25 mg tablet TAKE 1 TABLET BY MOUTH TWICE A DAY NEEDED 10/16 completed Not Available Not Available Not Available magnesium oxide 400 mg (241.3 mg magnesium ) tablet TAKE 1 TABLET BY MOUTH EVERY DAY active Not Available Not Available No t Available metoclopr amide 5 mg tablet TAKE ONE TABLET 3 TIMES DAILY BEFORE MEALS 10/16 completed Not Available Not Available Not Available cyanocoba harry (vit B-12) 500 mcg tablet Take by oral route. active Not Available Not Available No t Available Novolin R Regular U-100 Insulin 100 unit/mL injection solution sliding scale 10/16 completed Not Available Not Available Not Available phenazopy ridine 100 mg tablet TAKE 1 TABLET BY MOUTH THREE TIMES A DAY active Not Available Not Available No t Available cephalexi n 500 mg capsule TAKE 1 CAPSULE (500 MG) BY MOUTH EVERY 12 HOURS FOR 7 DAYS active Not Available Not Available No t Available ranitidin e 150 mg tablet Take 1 tablet every day by oral route for 30 days. 10/16 completed Not Available Not Available Not Available hydrochlo rothiazid e 12.5 mg capsule TAKE 1 CAPSULE DAILY 10/16 completed Not Available Not Available Not Available omeprazol e 20 mg capsule,d elayed release TAKE 1 CAPSULE BY MOUTH EVERY DAY active Not Available Not Available No t Available gentamici n 0.1 % topical cream APPLY TO EXIT SITE DAILY 10/16 completed Not Available Not Available Not Available monteluka st 10 mg tablet TAKE 1 TABLET BY MOUTH EVERY DAY active Not Available Not Available No t Available ammonium lactate 12 % topical cream Apply 2 applicat ions every day by topical route as needed. 10/16 completed Not Available Not Available Not Available mupirocin 2 % topical ointment APPLY A SMALL AMOUNT TO THE AFFECTED AREA WOUND BY TOPICAL ROUTE 3 TIMES PER DAY 10/16 completed Not Available Not Available Not Available zolpidem 5 mg tablet TAKE 1 TABLET AT BEDTIME NEEDED 10/16 completed pt aware no further refills as of 04/28/16. in process of trying to get in with [facility] Not Available Not Available Not Available furosemid e 20 mg tablet TAKE 1 TABLET BY MOUTH EVERY DAY active Not Available Not Available No t Available mirtazapi ne 15 mg tablet TAKE 1 TABLET BY MOUTH AT BEDTIME. active Not Available Not Available No t Available gabapenti n 100 mg capsule TAKE 1 CAPSULE BY MOUTH THREE TIMES A DAY active Not Available Not Available No t Available ibuprofen 600 mg tablet TAKE ONE TABLET 3 TIMES DAILY 10/16 completed Not Available Not Available Not Available ceftazidi me 1 gram solution for injection ADMINIST ER PER MARY Torres 10/16 completed Not Available Not Available Not Available zolpidem 10 mg tablet TAKE 1 TABLET BY MOUTH DAILY NEEDED FOR SLEEP. active Not Available Not Available No t Available methylpre dnisolone 4 mg tablets in a dose pack Take by oral route. 03/08 completed Not Available Not Available Not Available Vitamin D2 1,250 mcg (50,000 unit) capsule TAKE 1 CAPSULE ONCE A WEEK ON SAME DAY EACH WEEK 10/16 completed Not Available Not Available Not Available timolol maleate 0.5 % eye drops INSTILL ONE DROP INTO BOTH EYES TWICE DAILY active Not Available Not Available No t Available ketoconaz ole 2 % topical cream APPLY TO THE AFFECTED AREA(S) RIGHT GREAT TOENAIL BY TOPICAL ROUTE ONCE DAILY active Not Available Not Available No t Available haloperid ol 2 mg tablet TAKE 1 TABLET BY MOUTH EVERY 12 HOURS 10/16 completed Not Available Not Available Not Available ondansetr on 4 mg disintegr ating tablet TAKE 1 TABLET BY MOUTH EVERY 8 HOURS NEEDED FOR NAUSEA AND VOMITING active Not Available Not Available No t Available cefdinir 300 mg capsule TAKE 1 CAPSULE BY MOUTH EVERY 12 HOURS FOR 10 DAYS active Not Available Not Available No t Available fluticaso ne propionat e 50 mcg/actua tion nasal spray,noemi pension USE 2 SPRAYS IN EACH NOSTRIL ONCE DAILY 01/27 completed Not Available Not Available Not Available sertralin e 50 mg tablet TAKE 1 TABLET BY MOUTH EVERY DAY active Not Available Not Available No t Available calcitrio l 0.25 mcg capsule TAKE 1 CAPSULE DAILY 10/16 completed Not Available Not Available Not Available metoclopr amide 10 mg tablet 10 MG BY MOUTH THREE TIMES DAILY WITH MEALS NEEDED FOR NAUSEA AND VOMITING active Not Available Not Available No t Available doxazosin 2 mg tablet TAKE 1 TABLET BY MOUTH AT BEDTIME 10/16 completed Not Available Not Available Not Available amoxicill in 500 mg-potass ium clavulana te 125 mg tablet TAKE 1 TABLET BY MOUTH EVERY 12 HOURS 01/27 completed Not Available Not Available Not Available Ventolin HFA 90 mcg/actua tion aerosol inhaler 10/16 completed Not Available Not Available Not Available oxycodone 5 mg tablet TAKE 1 TABLET BY MOUTH EVERY 8 HOURS NEEDED active Not Available Not Available No t Available neomycin- polymyxin -hydrocor t 3.5 mg-10,000 unit/mL-1 % ear drops,noemi p INSTILL 4 DROPS INTO EACH EAR FOUR TIMES DAILY 10/16 completed Not Available Not Available Not Available Renal Caps 1 mg capsule TAKE 1 CAPSULE BY MOUTH ONCE A DAY 10/16 completed Not Available Not Available Not Available divalproe x ER 250 mg tablet,ex tended release 24 hr Take 2 tablets every day by oral route for 30 days. active Not Available Not Available No t Available nicotine 21mg/24hr -14mg/24h r-7mg/24h r daily transderm patches,s equentl Apply by transder mal route as directed 10/16 completed Not Available Not Available Not Available mirtazapi ne 7.5 mg tablet TAKE 1 TABLET BY MOUTH EVERY DAY NIGHTLY 10/16 completed Not Available Not Available Not Available nitrofura ntoin monohydra te/macroc rystals 100 mg capsule TAKE 1 CAPSULE BY MOUTH TWICE A DAY active Not Available Not Available No t Available BD Ultra-Fin e Mini Pen Needle 31 gauge x 16 USE TO INJECT INSULIN THREE TO FIVE TIMES PER DAY. active Not Available Not Available No t Available zolpidem ER 6.25 mg tablet,ex tended release,m ultiphase TAKE 1 TABLET AT BEDTIME 03/08 completed Not Available Not Available Not Available Levemir U-100 Insulin 100 unit/mL subcutane ous solution Inject 10 units every day by sub-q route. 10/16 completed Not Available Not Available Not Available BD Ultra-Fin e Short Pen Needle 31 gauge x 5/16 USE FOR INSULIN INJECTIO NS FOUR TIMES A DAY 10/16 completed Not Available Not Available Not Available sevelamer carbonate 800 mg tablet TAKE 1 TABLET BY MOUTH THREE TIMES A DAY WITH MEALS AND 1 TABLET TWICE DAILY WITH A SNACK 10/16 completed Not Available Not Available Not Available Humalog KwikPen (U-100) Insulin 100 unit/mL subcutane ous INJECT 2-6 UNITS UNDER THE SKIN PER SLIDING SCALE THREE TIMES A DAY 10/16 completed Not Available Not Available Not Available oxycodone 10 mg tablet TAKE 1 TABLET BY MOUTH EVERY 4 HOURS NEEDED FOR PAIN FOR UP TO 4 DOSES 01/27 completed Not Available Not Available Not Available cholecalc iferol (vitamin D3) 50 mcg (2,000 unit) capsule TAKE 1 CAPSULE BY MOUTH EVERY DAY active Not Available Not Available No t Available azelastin e 205.5 mcg (0.15 %) nasal spray USE 1 SQUIRT IN THE NOSTRILS TWICE A DAY 10/16 completed Not Available Not Available Not Available biotin 5 mg tablet Take by oral route. active Not Available Not Available No t Available Prevnar 13 (PF) 0.5 mL intramusc ular syringe active Not Available Not Available Not Available TRUEplus Insulin 0.3 mL 31 gauge x 5/16 syringe USE FOUR TIMES DAILY 10/16 completed Not Available Not Available Not Available Breo Ellipta 100 mcg-25 mcg/dose powder for inhalatio n INHALE 1 PUFF BY MOUTH DAILY -RINSE MOUTH WITH WATER AFTER USE. DO NOT SWALLOW active Not Available Not Available No t Available potassium chloride ER 20 mEq tablet,ex tended release TAKE 1 TABLET BY MOUTH TWICE A DAY FOR 5 DAYS active Not Available Not Available No t Available Belsomra 5 mg tablet Take 1 tablet every day by oral route as needed. 09/07 completed Not Available Not Available Not Available Rigoberto Moreno U-300 Insulin 300 unit/mL (1.5 mL) subcutane ous pen INJECT 20UNITS UNDER THE SKIN ONCE DAILY active Not Available Not Available No t Available Fluzone Quad 7577-7755 60 mcg (15 mcg x 4)/0.5 mL IM suspensio n active Not Available Not Available Not Available Envarsus XR 1 mg tablet,ex tended release TAKE 3 TABLETS BY MOUTH CUSTOMER SERVICE RECEPTIONIST BEFORE BREAKFAS T DO NOT TAKE ON FRI 11/28, THEN RESUME SAT 11/29 active Not Available Not Available No t Available insulin lispro (U-100) 100 unit/mL subcutane ous half-unit pen PLEASE SEE ATTACHED FOR DETAILED DIRECTIO NS active Not Available Not Available No t Available OneTouch Ultra Blue Test Strip TEST 5 TIMES A DAY 10/16 completed Not Available Not Available Not Available OneTouch Delica Plus Lancet 33 gauge TEST FOUR TIMES DAILY 10/16 completed Not Available Not Available Not Available Baqsimi 3 mg/actuat ion nasal spray USE 1 SPRAY INTO A SINGLE NOSTRIL. IF NO RESPONSE , MAY REPEAT IN 15 MINUTES USING A NEW DEVICE. 01/27 completed Not Available Not Available Not Available FreeStyle Lynda 2 Sensor kit TO CHANGE SENSOR EVERY 14 DAYS. active Not Available Not Available No t Available FreeStyle Lynda 3 [employer] active Not Available Not Available Not Available Zenpep 60,000-18 9,600-252 ,600 unit capsule,d elayed release TAKE 1 CAPSULE BY MOUTH BEFORE MEALS AND/OR SNACKS active Not Available Not Available No [id number]|2024-12-11 12:08:00|2024-12-11 12:08:00|XMS_ITS|KATI SLAVADOR|External Medical Summaries|[id number]|" Transplant Episode Summary Created on: December 11, 2024 Juaquin Rey : 1975 Sex: Female Author Organization [facility] al Address [address] [place] [address] Care Team Providers Care Link Trainer Mechanic Name Role Phone Ramon Chaney MD Primary Care Provider Burak Blue MD Unavailable [phone] Juana Jimenez RN Unavailable [phone] Sylwia García MD Unavailable [phone] Igor Yeager DO Unavailable [phone] Cristina Boyer RN Unavailable [phone] Cyn Fang NP Unavailable [phone] Transplant Episode Kidney Recipient [facility] ([place], [place]) - [facility] Organ Received: Left Kidney Transplanted on 03/09/2019 Marked as Active Follow-up on 03/09/2019 Reason: Transplanted at [facility] Kidney CoordinatorJuana Jimenez RN Fax: N/A Email: N/A [place] Organ Diagnosis Organ Primary Contributory Kidney Diabetes [...] Fax Email Juana Jimenez RN Kidney Coordinator [phone] N/A N/A Cristina Boyer, RN Secondary Coordinator Secondary Kidney Coordinator [phone] N/A N/A Burak Blue MD Referring Physician [phone] N/A Kristen Finley Primary Shelver N/A N/A N/A Jose De Jesus Barrios Secondary Shelver N/A N/A N/A Diane Salomon Director Video [phone] N/A N/A Juana Jimenez RN Nail Mill Worker [phone] N/A N/A Events Post-Transplant Pre-Transplant Admitted: 03/07/2019 Referred: 10/17/2017 Transplanted: 03/09/2019 Evaluation began: 8 Discharged: 03/12/2019 Committee: 12/08/2018 Center waitlisted: 9 Dialysis History Dialysis History Start End Type Comments Center 01/13/2018 03/09/2019 Peritoneal [facility] Dialysis Center Information Center Phone Fax Address [facility] [phone] [address] [facility] [id number] "
[2024-12-11 11:55] LABS: BEDSIDEPREGUCG Negative (Negative)
--- OUTSIDE RECORDS SUMMARY | 2024-12-11 12:08 | XMS_ITS | Encounter Summary ---
Author Organization [facility] Health Address [address] [place] [address] Care Team Providers Care Scrap Picker Name Role Phone Ramon Sylvester MD Primary Care Provider [phone] Ramon Sylvester MD Unavailable [phone] Encounter Details Date Type Department Care Team (Late st Contact Info) Description 12/11/2017 [facility] Outpatient Visit [facility] [address] [place] [address] [place] [phone] [id number] Social History Tobacco Use Types [...] on filedocumented in this encounter Care Teams Scrap Picker Relationship Specialty Start Date End Date Ramon Sylvester MD PCP - General Internal Medicine 10/19/16 Ramon Sylvester MD Internal Medicine 10/19/16 documented as of this encounter
--- OUTSIDE RECORDS SUMMARY | 2024-12-11 12:08 | XMS_ITS | CONTINUITY OF CARE DOCUMENT ---
Author Name ricci wynne Address Unknown Organization [facility] Address [address] [place] [address] Phone [phone] Care Team Providers Care Appliance Tester Name Role Phone Luis F Bansal MD Unavailable Luis F Bansal MD Unavailable INSURANCE PROVIDERS Payer name Policy type / Coverage type Demarest red democrat [employer] Medicaid 3 [id number] [facility] CHRONIC COMPLETE ASSURE (PPO C-SNP) Medicare [id number]
--- OUTSIDE RECORDS SUMMARY | 2024-12-11 12:08 | XMS_ITS | Referral Summary ---
Author Organization [facility] Address [address] [place] [address] Care Team Providers Care Data Communications Technician Name Role Phone Ramon Sylvester MD Primary Care Provider Burak Blue MD Unavailable [phone] Juana Jimenez RN Unavailable Sylwia García MD Unavailable Igor Yeager DO Unavailable Cristina Boyer RN Unavailable Cyn Fang NP Unavailable Encounters Date Type Department Care Team Description 12/04/2024 3:00 PM CDT Office Visit [facility] Endocrinology Metabolism and Lipid [address] [place] [address] [place] [address] Gavi Cervantes NP Type 1 diabetes mellitus with other specified complication (HCC) (Primary Dx); [facility] current use of insulin (HCC); Hyperlipidemia, unspecified hyperlipidemia type 11/17/2024 3:00 PM CDT Office Visit [facility] [address] [place] [address] Ramon Sylvester MD Visit for screening mammogram (Primary Dx); 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, unspecified laterality (HCC); Renal transplant recipient; Type 1 diabetes mellitus with other specified complication (HCC); Essential hypertension; Chronic obstructive pulmonary disease, unspecified COPD type ([facility]) 11/05/2024 Results Follow-Up [facility] [address] [place] [address] Ramon Sylvester MD 11/03/2024 Orders Only [facility] Nephrology [address] [place] [address] [place] [address] Jose Rafael Ramos MD 09/25/2024 Orders Only [facility] Endocrinology Metabolism and Lipid [address] [place] [address] [place] [address] Drew Godoy MD 09/25/2024 Telephone [facility] Endocrinology Metabolism and Lipid [address] [place] [address] [place] [address] 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 Ravi, 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 Freesetyle lynda 3 plus refills from Last 3 Months Allergies Active Allergy Reactions Criticality Noted Date Comments Cyclobenzaprine Rash Medium 10/12/2016 Metformin Diarrhea Low 03/31/2019 Morphine Itching Low 12/13/2017 Tetracycline Nausea & Vomiting,Rash Medium Acetaminophen Nausea & Vomiting Low 04/06/2020 Medications biotin 5 mg tabletIndications :Biotin Deficiency Take 5 mg by mouth nightly Active cyanocobalamin (Vitamin B-12) 500 mcg tabletIndications :Prevention of Vitamin B12 Deficiency Take 2 tablets (1,000 mcg total) by mouth daily Active fluticasone propionate (FLONASE) 50 mcg/actuation nasal spray Administer 2 sprays into each nostril 2 (two) times a day as needed for rhinitis 1 Inhaler 021 Active EPINEPHrine 0.3 mg/0.3 mL auto-injection syringeIndication s:Anaphylaxis Inject 0.3 mL (0.3 mg total) into the muscle as instructed as needed for anaphylaxis Call 911 after use. 1 each 1 022 Active ondansetron ODT (ZOFRAN-ODT) 4 mg disintegrating tablet Take 1 tablet (4 mg total) by mouth every 8 (eight) hours as needed for nausea or vomiting 20 tablet 023 Active mirtazapine (REMERON) 15 mg tabletIndications :Abdominal pain Take 1 tablet (15 mg total) by mouth nightly 30 tablet 11 023 Active glucagon (Baqsimi) 3 mg/actuation spray,non-aerosol Administer 1 spray into one nostril as needed (For severe low blood sugar) Active haloperidoL (HALDOL) 1 mg tablet Take 1 tablet (1 mg total) by mouth 3 (three) times a day as needed (Nausea/vomiti ng) Active insulin glargine (TOUJEO) 300 unit/mL (1.5 mL) pen for injection Inject 24 Units under the skin daily Active albuterol HFA (PROVENTIL HFA,VENTOLIN HFA,PROAIR HFA) 90 mcg/actuation inhaler Inhale 2 puffs every 6 (six) hours as needed for wheezing or shortness of breath Active timoloL (BETIMOL) 0.5 % ophthalmic solution Administer 1 drop into both eyes 2 (two) times a day Active glycerin (Biotrue Hydration Boost) 0.5 % drops Administer 1 drop into affected eye(s) as needed (dry eyes) Active tacrolimus XR (Envarsus XR) 1 mg tablet extended release 24 hrIndications:Kid andres replaced by transplant Take 3 tablets (3 mg total) by mouth local sales associate before breakfast DO NOT TAKE ON 11/28, THEN RESUME SAT 11/29 270 tablet 6 024 Active insulin lispro (HumaLOG MARELY) 100 unit/mL half-unit pen for injectionIndicati ons:Type 1 diabetes mellitus with other specified complication (HCC) 1:13 CARB RATIO WITH BREAKFAST, 1:15 CARB RATIO WITH LUNCH AND 1:13 CARB RATIO WITH SUPPER PLUS SLIDING SCALE 1 UNIT FOR EVERY 50 POINTS GREATER THAN 150 MAX DAILY DOSE IS 30 UNITS. 30 mL 3 024 Active ketoconazole (NIZORAL) 2 % cream 024 Active pen needle, diabetic (BD Ultra-Fine Mini Pen Needle) 31 gauge x 3/16 needleIndications :Type 1 diabetes mellitus with other specified complication (HCC) USE TO INJECT INSULIN THREE TO FIVE TIMES PER DAY. 500 each 4 Active aspirin 81 mg enteric coated tablet Take 1 tablet (81 mg total) by mouth daily 90 tablet 3 Active sertraline (ZOLOFT) 50 mg tablet TAKE 1 TABLET BY MOUTH EVERY DAY 90 tablet 3 Active blood-glucose meter,continuous (FreeStyle Lynda 3 [place]) [facility] Use as directed to check blood sugar in conjunction with sensors. 1 each 024 Active Breo Ellipta 100-25 mcg/dose diskus inhaler INHALE 1 PUFF BY MOUTH DAILY -RINSE MOUTH WITH WATER AFTER USE. DO NOT SWALLOW 60 each 3 024 Active predniSONE (DELTASONE) 5 mg tablet TAKE 1 TABLET BY MOUTH EVERY DAY 30 tablet 11 Active furosemide (LASIX) 20 mg tablet Take 1 tablet (20 mg total) by mouth daily Active Zenpep 60,000-189,600- 252,600 unit capsule,delayed release(DR/EC) TAKE 1 CAPSULE BY MOUTH WITH MEALS AND/OR SNACKS Active potassium chloride ER 20 mEq CR tablet TAKE 1 TABLET BY MOUTH TWICE A DAY FOR 5 DAYS Active cholecalciferol (VITAMIN D-3) 2000 unit capsule TAKE 1 CAPSULE BY MOUTH EVERY DAY 90 capsule 3 024 Active omeprazole (PriLOSEC) 20 mg capsuleIndication s:Kidney replaced by transplant TAKE 1 CAPSULE BY MOUTH EVERY DAY 90 capsule 3 025 Active magnesium oxide (MAG-OX) 400 mg (241.3 mg elemental magnesium) tabletIndications :hypomagnesemia Take 1 tablet (400 mg total) by mouth daily 30 tablet 2 025 2025 Active montelukast (SINGULAIR) 10 mg tablet TAKE 1 TABLET BY MOUTH EVERY DAY 90 tablet 2 Active gabapentin (NEURONTIN) 100 mg capsule Take 1 capsule (100 mg total) by mouth 3 (three) times a day 90 capsule 11 Active atorvastatin (LIPITOR) 20 mg tablet TAKE 1 TABLET BY MOUTH EVERY DAY 90 tablet 3 025 Active blood-glucose sensor (FreeStyle Lynda 3 Plus Sensor) device Use 1 sensor every 15 days 6 each 3 Active carvediloL (COREG) 6.25 mg tablet TAKE 1 TABLET BY MOUTH TWICE A DAY WITH MEALS 180 [address] (DEPAKOTE) 500 mg EC tablet TAKE 1 TABLET BY MOUTH THREE TIMES A DAY 270 tablet 11 Active zolpidem (AMBIEN) 10 mg tablet Take 1 tablet (10 mg total) by mouth nightly as needed for sleep 30 tablet 1 Active traMADoL (ULTRAM) 50 mg tablet Take 2 tablets (100 mg total) by mouth every 6 (six) hours as needed for pain 240 tablet Active ALPRAZolam (XANAX) 0.5 mg tabletIndications :Anxiety Take 1 tablet (0.5 mg total) by mouth 3 (three) times a day as needed for anxiety 90 tablet Active azaTHIOprine (IMURAN) 50 mg tabletIndications :Kidney replaced by transplant TAKE 1 TABLET BY MOUTH EVERY DAY 100 tablet 3 025 Active azaTHIOprine (IMURAN) 50 mg tabletIndications :Kidney replaced by transplant TAKE 1 TABLET BY MOUTH EVERY DAY 100 tablet 3 [address] (DEPAKOTE) 500 mg EC tablet TAKE 1 TABLET BY MOUTH THREE TIMES A DAY 270 tablet 11 024 2024 Discontinued carvediloL (COREG) 6.25 mg tablet Take 1 tablet (6.25 mg total) by mouth 2 (two) times a day with meals 60 tablet 11 024 2024 Discontinued timolol (TIMOPTIC) 0.5 % ophthalmic solution INSTILL ONE DROP INTO BOTH EYES TWICE DAILY 024 2024 Discontinued(D uplicate order) fluconazole (DIFLUCAN) 150 mg tablet TAKE 1 TABLET (150 MG TOTAL) BY MOUTH ONCE FOR 1 DOSE. 1 tablet 2024 Discontinued zolpidem (AMBIEN) 10 mg tablet TAKE 1 TABLET BY MOUTH DAILY NEEDED FOR SLEEP. 30 tablet 1 025 2024 Discontinued(R eorder) traMADoL (ULTRAM) 50 mg tablet Take 2 tablets (100 mg total) by mouth every 6 (six) hours as needed for pain 240 tablet 025 2024 Discontinued(R eorder) ALPRAZolam (XANAX) 0.5 mg tabletIndications :Anxiety TAKE 1 TABLET BY MOUTH THREE TIMES A DAY NEEDED FOR ANXIETY 90 tablet 025 2024 Discontinued(R eorder) fluconazole (DIFLUCAN) 150 mg tablet TAKE 1 TABLET (150 MG TOTAL) BY MOUTH ONCE FOR 1 DOSE. 1 tablet 025 2024 Active Problems Patient Care Coordination No te Formatting of this note migh t be different from the original. Lab: [facility]- [phone] Standing Orders q-monthly FK, q3-HgbA1C. Exp. 06/16/25 Home Health: [facility] Home Care Local Pharmacy:[place] [id number] [facility] Noted Date Diagnosed Date Pancreatic insufficiency 07/11/2024 Localized edema 01/22/2024 Assessment & Plan (01/22/2024 4:11 PM CDT): Continue furosemide Abnormal urinalysis/ UTI 11/26/2023 Assessment & Plan (11/29/2023 12:12 AM CDT): Reports experiencing burning sensation during urination and pain during urination for more than 2-3 months and has had multiple visit at [facility] in [place] with multiple abnormal urinalyses and recent cultures growing bowles- sensitive E coli. She has used antibiotics like Macrobid, Augmentin and most recently Bactrim a week back with minimal relief of her symptoms. UA showed 3+ ketones, leukocyte esterase 2+, WBC 50, RBC 20-50, bacteria 2+. Unfortunately, culture was not sent here - Clinically improved with CTX. Transition to Cefdinir on discharge; plan for 7 day course given her history of recurrent/persistent infection. - Patient has appointment with Urology for evaluation in November Electrolyte abnormality 11/26/2023 Assessment & Plan (11/27/2023 3:59 PM CDT): Hypophosphatemia on admission likely 2/2 low p.o. intake. S/p phos, Mg, and K repletion. - Continue to monitor Insomnia 02/24/2023 Assessment & Plan (11/27/2023 4:01 PM CDT): - Continue zolpidem 5 mg nightly (uses 10mg at home) Assessment & Plan (06/25/2023 3:24 PM BRIM POUNCER): Continue Ambien Assessment & Plan (02/24/2023 2:03 AM CDT): Cont home ambien PRN, reduce 10mg -> 5mg Liver lesion, right lobe 10/06/2022 [facility] current 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 Change Lantus from hs to AM to decrease overnight lows. Assessment & Plan (11/05/2022 9:19 AM CDT): Need to minimize risk of hypoglycemia. Assessment & Plan (06/07/2022 5:23 PM BRIM POUNCER): Now improved, but still need to minimize risk of hypoglycemia. Assessment & Plan (03/23/2022 9:03 AM CDT): Now improved, but still need to minimize risk of hypoglycemia Prolonged Q-T interval on ECG 02/23/2021 Assessment & Plan (11/27/2023 3:58 PM CDT): History of QT prolongation. Admission EKG QT 536. - Avoid QT prolonging medications; will take Droperidol off PRN list - Replete to keep K>4 and Mg>2 Assessment & Plan (02/25/2023 10:32 AM CDT): Previously noted, most recently 480s. Caution with QTC agents. - Qtc 02/25 462 Assessment & Plan (02/25/2021 6:05 PM CDT): -QTc 493 on EKG. Also noted on prior EKGs -Received multiple medications in ED that can prolong QTc. Will repeat EKG and monitor on tele -Avoid further QTc prolonging agents -Recommended discontinuing scheduled Reglan use as outpatient. Also prescribed sertraline, although she has brought her medication list which does not include this medication Assessment & Plan (02/24/2021 4:54 PM CDT): -QTc 493 on EKG. Also noted on prior EKGs -Received multiple medications in ED that can prolong QTc. Will repeat EKG and monitor on tele -Avoid further QTc prolonging agents -Recommended discontinuing scheduled Reglan use as outpatient. Also prescribed sertraline, although she has brought her medication list which does not include this medication Assessment & Plan (02/23/2021 11:03 PM CDT): -QTc 493 on EKG. Also noted on prior EKGs -Received multiple medications in ED that can prolong QTc. Will repeat EKG and monitor on tele -Avoid further QTc prolonging agents -Recommended discontinuing scheduled Reglan use as outpatient. Also prescribed sertraline, although she has brought her medication list which does not include this medication. Neuralgia 04/05/2020 Gastroparesis diabeticorum 03/21/2020 Assessment & Plan (11/29/2023 12:10 AM CDT): H/o gastroparesis with multiple fears and last hospitalization for gastroparesis approximately 4 months back. Improved with Droperidol x 2 and PRN Ativan. - Continue insulin regimen as noted elsewhere - Ativan 0.5-1mg q4h PRN - Resume home Haldol PRN on discharge - Oxycodone 10 mg every 4 hours p.r.n. for pain Assessment & Plan (03/23/2022 9:07 AM CDT): Clinically stable, but still affects timing of nutrient and insulin effect. Improved with metoclopramide Assessment & Plan (12/06/2021 4:46 PM CDT): Affects mealtime insulin and nutrient coordination, but she would likely benefit from taking post meal Fiasp to minimize risk of post meal hypoglycemia Assessment & Plan (08/08/2021 3:28 PM BRIM POUNCER): -Affects post meal glucose readings -Closely monitor for hypoglycemia -Symptoms improved with Reglan Assessment & Plan (03/28/2021 8:27 AM CDT): Affects mealtime insulin requirements, need to minimize risk of hypoglycemia Assessment & Plan (04/27/2020 11:49 AM CDT): Currently on Reglan. 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 POD1 N/V and Abd pain. Management per primary. With Poor PO intake, will avoid mealtime insulin at this time. Legally blind 11/15/2019 Assessment & Plan (11/05/2022 9:22 AM CDT): This affects her ability to see a glucose meter and monitor her diabetes safely. She greatly benefits from a continuous glucose monitoring device, which provides alarms for high and low glucoses. Assessment & Plan (06/07/2022 5:24 PM BRIM POUNCER): This affects her ability to see a glucose meter and monitor her diabetes safely. She greatly benefits from a continuous glucose monitoring device, which provides alarms for high and low glucoses. Assessment & Plan (03/23/2022 9:04 AM CDT): This affects her ability to see a glucose meter and monitor her diabetic care safely. She benefits from a continuous glucose monitoring device which provides alarms for high and low glucoses. Assessment & Plan (03/28/2021 8:27 AM CDT): This affects her ability to see a glucose meter and monitor her diabetic care safely. She benefits from a continuous glucose monitoring device which provides alarms for high and low glucoses. Assessment & Plan (03/23/2020 4:31 PM CDT): This affects her ability to see a glucose meter and monitor her diabetic care safely. She would therefore benefit from a continuous glucose monitoring device which would provide alarms for high and low glucoses. Chronic obstructive lung disease 11/15/2019 Assessment & Plan (11/17/2024 3:59 PM CDT): Stable. Assessment & Plan (06/03/2023 5:34 AM BRIM POUNCER): Previous history of smoking. - Continue home inhalers and singulair. Essential hypertension 11/15/2019 Assessment & Plan (11/17/2024 3:59 PM CDT): BP at target Assessment & Plan (06/03/2023 5:41 AM BRIM POUNCER): Hold amlodipine for soft blood pressures. Assessment & Plan (02/24/2023 2:02 AM CDT): Continue amlodipine 5mg BID Assessment & Plan (02/20/2023 4:02 PM CDT): Resume amlodipine Assessment & Plan (04/27/2020 11:49 AM CDT): Blood pressure is normal today. Assessment & Plan (11/15/2019 11:08 AM CDT): Hypertensive in ED, although pt in distress with vomiting and pain. On no antihypertensives at home -Treat symptoms. Monitor closely. Can start meds if needed. Gastroesophageal reflux disease 11/15/2019 Assessment & Plan (02/24/2023 2:02 AM CDT): Continue home PPI. Assessment & Plan (11/15/2019 11:10 AM CDT): Start protonix IV for possible gastritis. On omeprazole at home Hyperlipidemia 11/15/2019 Assessment & Plan (06/03/2023 5:43 AM BRIM POUNCER): Continue home statin. Assessment & Plan (02/24/2023 2:01 AM CDT): Cont home atorva 20mg. Assessment & Plan (11/05/2022 9:21 AM CDT): On atorvastatin 20mg. Optimize glycemic control. 10/2022- TG 173, HDL 66, LDL 66 Assessment & Plan (06/07/2022 5:29 PM BRIM POUNCER): Continue statin therapy (atorvastatin 20mg) and optimize glycemic control. 04/2022- TG 238, HDL 68, LDL 50 Assessment & Plan (03/23/2022 9:03 AM CDT): Continue statin, optimize glycemic control Assessment & Plan (12/06/2021 4:45 PM CDT): Continue statin, optimize glycemic control Assessment & Plan (03/28/2021 8:29 AM CDT): Continue statin, optimize glycemic control Assessment & Plan (03/23/2020 4:36 PM CDT): Continue statin, optimize glycemic control Raynaud's disease 11/15/2019 Bipolar 1 disorder 11/15/2019 Assessment & Plan (11/27/2023 4:01 PM CDT): - Continue depakote 500mg TID, mirtazapine 15mg, sertraline 50mg - Hold home TID haloperidol for now given Droperidol this AM and Qtc prolongation; can restart if QT remains stable. Assessment & Plan (06/03/2023 5:34 AM BRIM POUNCER): - Continue home sertraline, nightly mirtazapine and ambien. Assessment & Plan (02/24/2023 2:02 AM CDT): Cont home Depakote 500mg TID, mirtazapine 7.5mg, sertraline 50mg Assessment & Plan (02/25/2021 6:05 PM CDT): -Continue Depakote 500 TID, also on Xanax 0.25 BID for anxiety which is currently held as Ativan ordered for nausea Assessment & Plan (02/24/2021 4:51 PM CDT): -Continue Depakote 500 TID, also on Xanax 0.25 BID for anxiety which is currently held as Ativan ordered for nausea Assessment & Plan (02/23/2021 10:56 PM CDT): -Continue Depakote 500 TID, also on Xanax 0.25 BID for anxiety which is currently held as Ativan ordered for nausea Assessment & Plan (11/15/2019 12:01 PM CDT): -Cont depakote Asthma 11/15/2019 Assessment & Plan (02/24/2023 2:02 AM CDT): Continue home Breo, montelukast Assessment & Plan (11/15/2019 12:02 PM CDT): -Cont breo, singulair, and prn albuterol Vitamin D deficiency 07/06/2019 Assessment & Plan (03/23/2022 9:04 AM CDT): Continue long-term supplement Assessment & Plan (12/06/2021 4:43 PM CDT): Continue long-term supplement Assessment & Plan (03/28/2021 8:29 AM CDT): Continue long time supplement Assessment & Plan (04/07/2020 4:55 PM CDT): Continue long-term supplementation Assessment & Plan (03/23/2020 4:35 PM CDT): Continue long time supplement Encounter for aftercare following kidney transpl ant 04/28/2019 Assessment & Plan (03/23/2022 9:06 AM CDT): On steroids, immunosuppressants which affect glycemic control Assessment & Plan (12/06/2021 4:46 PM CDT): On steroids, immunosuppressants which affect glycemic control Assessment & Plan (03/28/2021 8:27 AM CDT): On steroids, immunosuppressants which affect glycemic control Assessment & Plan (03/23/2020 4:32 PM CDT): On steroids, immunosuppressants which affect glycemic control Assessment & Plan (05/14/2019 11:50 AM CDT): 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 Hold azathioprine and pred acutely. -cont oi ppx: valcyte and bactrim Immunosuppression 04/28/2019 Increased infection risk sta tus post immunosuppressive therapy 04/28/2019 High risk medication use 03/12/2019 Assessment & Plan (04/07/2020 4:55 PM CDT): Monitoring insulins, which could cause serious hypoglycemia. Steroid therapy with serious risks of hyperglycemia, metabolic complications. Assessment & Plan (03/12/2019 1:29 PM CDT): High risk medication: requires intensive, high risk insulin regimen, with intensive glycemic monitoring. Increased risk of hypoglycemia in the context of glucocorticoid taper, and variable po intake. Anxiety 11/17/2018 Assessment & Plan (06/25/2023 3:25 PM BRIM POUNCER): Continue sertraline and Xanax Assessment & Plan (06/03/2023 5:33 AM BRIM POUNCER): Continue home xanax PRN Assessment & Plan (02/24/2023 2:03 AM CDT): Continue home Xanax 0.5mg TID PRN Assessment & Plan (10/25/2020 2:51 PM CDT): Possibly could benefit from an SSRI. However will check thyroid panel 1st. Arthritis 11/17/2018 Seasonal allergies 11/17/2018 Type 1 diabetes mellitus with other specified co mplication 05/15/2018 Overview (03/21/2020): Dx age 19 with multiple complications Assessment & Plan (11/17/2024 3:59 PM CDT): To see Endocrinology in 2 weeks blood sugar control is not excellent Assessment & Plan (01/22/2024 4:12 PM CDT): Follows with endo Assessment & Plan (11/27/2023 4:02 PM CDT): History of diabetes with last A1c: 8.4 on 11/18. Home medications: Insulin glargine 20 units nightly, insulin lispro (1:13 carb ratio for breakfast, supper and 1:15 carb ratio for dinner)+ per sliding scale. - Standard Insulin sliding scale (though OK patient requests alterate dosing based on carb counting) - Long acting Insulin (Glargine): 20 - Short acting insulin (Lispro) : 5U TID (AC)+ISS - Monitor Assessment & Plan (06/03/2023 5:41 AM BRIM POUNCER): At home on glargine 28 units nightly and lispro SSI. HgbA1C 8.4 on 03/20. - On presentation with N/V, Ketones +4 and AG 20, high AG resolved with NPH. - Start on lantus 12 units and SSI and titrate as needed with improvement of oral intake. . Assessment & Plan (02/24/2023 2:00 AM CDT): Most recent A1C 8.1%, complicated by hyperglycemia, neuropathy, legal blindness. - Home insulin: Toujeo 28 units qHS, humalog carb count slide - Here: lantus 12, lispro 4, HDSSI - cont home asa, atorva 20mg, gabapentin 100mg TID Assessment & Plan (02/20/2023 4:00 PM CDT): Resume insulin basal and scale Assessment & Plan (11/05/2022 10:48 AM CDT): Hemoglobin A1c is 8.1%. Continue using FreeStyle Lynda for frequent monitoring and safety. She is taking Toujeo AM daily, consistently. She is using carb ratio and sliding scale for Humalog dosing with meals. Recommend decreasing Humalog dose with lunch to prevent afternoon hypoglycemia. -Also, encouraged to decrease insulin dosing on days of increased physical activity to prevent hypoglycemia. In the future, diabetes education would be beneficial for her as she is intelligent and motivated to manage her diabetes. Assessment & Plan (06/07/2022 5:38 PM BRIM POUNCER): Hemoglobin A1c increased to 8.5% on 05/22/2022. Continue using FreeStyle Lynda for frequent monitoring and safety. She is taking Toujeo AM daily, consistently. She is using carb ratio and sliding scale for Humalog dosing with meals. Within a good margin of safety, recommend increasing her insulin doses to prevent hyperglycemia. She also plans to make diet and lifestyle changes to help better manage BG. In the future, diabetes education would be beneficial for her as she is intelligent and motivated to manage her diabetes. Assessment & Plan (03/23/2022 9:05 AM CDT): Clinically much improved with the Lynda device to help provide low and high alerts. Insulins still running high, so she needs more basal insulin. Need to maintain a good margin of safety. Assessment & Plan (12/06/2021 4:44 PM CDT): Multiple comorbidities, but needs a safe regimen from what she can take insulin after eating in order to minimize the risk of post meal hypoglycemia. Because she is so sensitive to insulin, however, she needs to be able to give this in 1/2 unit increments. Her sugars also trend down overnight, so she needs less basal insulin. Assessment & Plan (08/08/2021 3:28 PM BRIM POUNCER): -Currently taking MDI and using Lynda -A1C on 08/08/21 was 8.2% - Lynda download indicates persistent hyperglycemia with post meal excursions. Will increase Lantus from 18-->20 units at hs. Will also adjust Humalog carb ratio from 1:15 -->1:14. Will follow with her response. -Discussed diet and activity modifications. -Advised to call with any concerns/complaints regarding glucose readings Assessment & Plan (02/25/2021 6:04 PM CDT): -Recent A1c 8.6. BG in 300s in ED treated with lispro 5. -Home regimen: Lantus 18 QHS, lispro as SSI TID (per chart 1:15 carb ratio, 0.5 units >200). Of note, currently has CGM in place. -Continue Lantus 16 QHS + extra LDSSI. Can add scheduled mealtime insulin if needed once taking PO Assessment & Plan (02/24/2021 4:51 PM CDT): -Recent A1c 8.6. BG in 300s in ED treated with lispro 5. -Home regimen: Lantus 18 QHS, lispro as SSI TID (per chart 1:15 carb ratio, 0.5 units >200). Of note, currently has CGM in place. -Continue Lantus 16 QHS + extra LDSSI. Can add scheduled mealtime insulin if needed once taking PO. Assessment & Plan (02/23/2021 10:52 PM CDT): -Recent A1c 8.6. BG in 300s in ED treated with lispro 5. -Home regimen: Lantus 18 QHS, lispro as SSI TID (per chart 1:15 carb ratio, 0.5 units >200). Of note, currently has CGM in place. -Continue Lantus 16 QHS + extra LDSSI. Can add scheduled mealtime insulin if needed once taking PO. Assessment & Plan (04/27/2020 11:48 AM CDT): She is followed by Dr. García. Will continue present Rx as per his instructions. Assessment & Plan (04/07/2020 4:54 PM CDT): Glucoses markedly improved, now starting to eat postoperatively. She is very aware of how to manage her diabetes and will maintain her current doses immediately upon discharge, then go back to her pre-admission regimen once she is eating and back to usual activity. She will follow-up with Dr. García in the office, keeping informed as to glucose progress and appointments as previously arranged Assessment & Plan (04/06/2020 3:31 PM CDT): Patient at baseline with highly variable glucose levels, with a propensity to have hypoglycemia in past and is sensitive to high insulin doses. Has been persistently >200 on POC glucose and BMP checks while inpatient. Does have Freestyle Lynda and does check while inpatient. Instructed patient that this cannot replicate a POC glucose monitor check by nursing staff, and if she has concern for her blood glucose level she can alert nursing staff to check POC glucose. For insulin management, recommend the following: Basal: Increase to Lantus 16 unit QHS Mealtime: Patient has poor PO intake at the moment, so can hold off using this for now. - When she does start eating full meals, may utilize 1 unit Lispro POST-meal; if eaten <50% of plate, do NOT give any. Correctional: Use the Extra Low Dose Sliding Scale insulin Lispro, as this best reflect her home correctional doses. Assessment & Plan (03/23/2020 4:35 PM CDT): Glucoses highly variable, but she is blind and has difficulty seeing her glucoses and in making appropriate management decisions. In addition, she is very sensitive to small amounts of insulin and needs a device to provide smaller increments. Intelligent, motivated and will benefit from more advanced Education but also would benefit from a pump and continuous glucose monitor. 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 No evidence of DKA on admission. BG 361 treated in ED with 7u lispro. Last A1c 7 -Check HgbA1c. Check BG QID -Cont insulin -IVFs -BMP AM -Consult Diabetes service Assessment & Plan (05/14/2019 11:50 AM CDT): Presentation with DKA. Suspect triggered by possible GI/ infection, s/p insulin gtt and anion gap now closed. - Takes tujeo 18u qhs, 5-7 lispro tid. Cont lantus 15u, 4u tid lispro + ssi Assessment & Plan (05/13/2019 12:51 AM CDT): - Presentation with DKA. Suspect triggered by possible GI/ infection - s/p insulin gtt and anion gap now closed. - Takes tujeo 18u qhs, 5-[address] on lantus 15u, 4u tid lispro + ssi and titrate as needed Assessment & Plan (03/12/2019 1:27 PM CDT): A1c 7.2%. Her diabetes was diagnosed at a young age, and she has experienced DKA. She has also had multiple severe complications including nephropathy, retinopathy. She denies thyroid disease. Her diabetes may be a PREETHI type or have autoimmune features. Home regimen: Toujeo 17 u nightly, SSI 1-2 u Humalog with meals IF postprandial BG >200 -MARVIN Ab and c-peptide are in process in lab. Please note these pending labs in discharge summary so that PCP can follow up She is now s/p kidney transplant and high doses of steroids which exacerbated hyperglycemia. She has been receiving NPH with her prednisone doses. BG remained elevated yesterday. She has been receiving 6 u lantus nightly with mealtime and SSI humalog. Discharge recommendations: -Toujeo 8 u nightly -Humalog 10 u TID with meals. Patient may take mealtime insulin with meals instead of waiting until post prandial. -Follow up with PCP for BG management. As her steroid dose is tapered she will likely require less mealtime insulin. Assessment & Plan (03/11/2019 9:48 AM CDT): A1c 7.2%. Her diabetes was diagnosed at a young age, and she has experienced DKA. She has also had multiple severe complications including nephropathy, retinopathy. She denies thyroid disease. Her diabetes may be a PREETHI type or have autoimmune features. -Please check MARVIN Ab and c-peptide She is not s/p kidney transplant and receiving high doses of steroids which will exacerbate hyperglycemia. -Please give NPH 10 u with prednisone 50 mg dose today -Tomorrow she will begin prednisone 20 mg daily -As steroid doses are tapered we expect to require less NPH Home regimen is toujeo 17 units nightly, humalog 1-2 u with meals IF post- prandial BG >200. -Continue glargine 6 units nightly -Humalog SSI with meals -Continue Humalog 3 u TID AC -Accuchecks TID AC, bedtime, 2AM Assessment & Plan (03/10/2019 6:52 PM CDT): A1c 7.2%. Her diabetes was diagnosed at a young age, and she has experienced DKA. She has also had multiple severe complications including nephropathy, retinopathy. She denies thyroid disease. Her diabetes may be a PREETHI type or have autoimmune features. -Please check MARVIN Ab and c-peptide She is not s/p kidney transplant and receiving high doses of steroids which will exacerbate hyperglycemia. -Please give NPH 10 u with prednisone 50 mg dose tomorrow morning -As steroid doses are tapered we expect to require less NPH Home glargine dose is 17 units nightly. -Continue glargine 6 units nightly -Humalog SSI with meals -Humalog 3 u TID AC -Accuchecks TID AC, bedtime, 2AM Chronic hepatitis C without hepatic coma 018 Overview (05/15/2018): Genotype 1a Assessment & Plan (11/05/2022 9:21 AM CDT): Managed by Dr. Bhatt. Needs optimal glycemic control. Assessment & Plan (06/07/2022 5:25 PM BRIM POUNCER): Managed by Dr. Bhatt. Needs optimal glycemic control. Assessment & Plan (03/23/2022 9:06 AM CDT): Managed by Dr. Bhatt. Needs optimal glycemic control Assessment & Plan (07/11/2020 5:49 PM BRIM POUNCER): Resolved following course of antiviral therapy. Her risk of relapse at this point is essentially zero. She will remain hepatitis C antibo [id number]|2024-12-11 10:40:00|2024-12-11 10:40:00|XMS_ITS|FABIANG MODESTO|External Medical Summaries|[id number]|" Referral Summary Created on: December 11, 2024 Juaquin Rey : 1975 Sex: Female Author Organization [facility] Address [address] [place] [address] Care Team Providers Care Data Communications Technician Name Role Phone Ramon Sylvester MD Primary Care Provider [phone] Burak Blue MD Unavailable [phone] Juana Jimenez RN Unavailable Sylwia García MD Unavailable Igor Yeager DO Unavailable Cristina Boyer RN Unavailable Cyn Fang NP Unavailable Encounters Date Type Department Care Team Description 12/04/2024 3:00 PM CDT Office Visit [facility] Endocrinology Metabolism and Lipid [address] [place] [address] [place] [address] Gavi Cervantes NP Type 1 diabetes mellitus with other specified complication (HCC) (Primary Dx); [facility] current use of insulin (HCC); Hyperlipidemia, unspecified hyperlipidemia type 11/17/2024 3:00 PM CDT Office Visit [facility] [address] [place] [address] [place] [address] Ramon Sylvester MD Visit for screening mammogram (Primary Dx); 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, unspecified laterality (HCC); Renal transplant recipient; Type 1 diabetes mellitus with other specified complication (HCC); Essential hypertension; Chronic obstructive pulmonary disease, unspecified COPD type (HCC) 11/05/2024 Results Follow-Up [facility] [address] [facility] [address] [place] [address] Ramon Sylvester MD 11/03/2024 Orders Only [facility] Nephrology [address] [place] [address] [place] [address] Jose Rafael Ramos MD 09/25/2024 Orders Only [facility] Endocrinology Metabolism and Lipid [address] [place] [address] [place] [address] Drew Godoy MD 09/25/2024 Telephone [facility] Endocrinology Metabolism and Lipid [address] [place] [address] [place] [address] Breonan Patricia Estelle, 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 Freesetyle lynda 3 plus refills from Last 3 Months Allergies Active Allergy Reactions Criticality Noted Date Comments Cyclobenzaprine Rash Medium 10/12/2016 Metformin Diarrhea Low 03/31/2019 Morphine Itching Low 12/13/2017 Tetracycline Nausea & Vomiting,Rash Medium Acetaminophen Nausea & Vomiting Low 04/06/2020 Medications biotin 5 mg tabletIndications :Biotin Deficiency Take 5 mg by mouth nightly Active cyanocobalamin (Vitamin B-12) 500 mcg tabletIndications :Prevention of Vitamin B12 Deficiency Take 2 tablets (1,000 mcg total) by mouth daily Active fluticasone propionate (FLONASE) 50 mcg/actuation nasal spray Administer 2 sprays into each nostril 2 (two) times a day as needed for rhinitis 1 Inhaler 021 Active EPINEPHrine 0.3 mg/0.3 mL auto-injection syringeIndication s:Anaphylaxis Inject 0.3 mL (0.3 mg total) into the muscle as instructed as needed for anaphylaxis Call 911 after use. 1 each 1 022 Active ondansetron ODT (ZOFRAN-ODT) 4 mg disintegrating tablet Take 1 tablet (4 mg total) by mouth every 8 (eight) hours as needed for nausea or vomiting 20 tablet 023 Active mirtazapine (REMERON) 15 mg tabletIndications :Abdominal pain Take 1 tablet (15 mg total) by mouth nightly 30 tablet 11 023 Active glucagon (Baqsimi) 3 mg/actuation spray,non-aerosol Administer 1 spray into one nostril as needed (For severe low blood sugar) Active haloperidoL (HALDOL) 1 mg tablet Take 1 tablet (1 mg total) by mouth 3 (three) times a day as needed (Nausea/vomiti ng) Active insulin glargine (TOUJEO) 300 unit/mL (1.5 mL) pen for injection Inject 24 Units under the skin daily Active albuterol HFA (PROVENTIL HFA,VENTOLIN HFA,PROAIR HFA) 90 mcg/actuation inhaler Inhale 2 puffs every 6 (six) hours as needed for wheezing or shortness of breath Active timoloL (BETIMOL) 0.5 % ophthalmic solution Administer 1 drop into both eyes 2 (two) times a day Active glycerin (Biotrue Hydration Boost) 0.5 % drops Administer 1 drop into affected eye(s) as needed (dry eyes) Active tacrolimus XR (Envarsus XR) 1 mg tablet extended release 24 hrIndications:Kid andres replaced by transplant Take 3 tablets (3 mg total) by mouth local sales associate before breakfast DO NOT TAKE ON 11/28, THEN RESUME SAT 11/29 270 tablet 6 Active insulin lispro (HumaLOG MARELY) 100 unit/mL half-unit pen for injectionIndicati ons:Type 1 diabetes mellitus with other specified complication (HCC) 1:13 CARB RATIO WITH BREAKFAST, 1:15 CARB RATIO WITH LUNCH AND 1:13 CARB RATIO WITH SUPPER PLUS SLIDING SCALE 1 UNIT FOR EVERY 50 POINTS GREATER THAN 150 MAX DAILY DOSE IS 30 UNITS. 30 mL 3 Active ketoconazole (NIZORAL) 2 % cream Active pen needle, diabetic (BD Ultra-Fine Mini Pen Needle) 31 gauge x 3/16 needleIndications :Type 1 diabetes mellitus with other specified complication (HCC) USE TO INJECT INSULIN THREE TO FIVE TIMES PER DAY. 500 each 4 Active aspirin 81 mg enteric coated tablet Take 1 tablet (81 mg total) by mouth daily 90 tablet 3 Active sertraline (ZOLOFT) 50 mg tablet TAKE 1 TABLET BY MOUTH EVERY DAY 90 tablet 3 Active blood-glucose meter,continuous (FreeStyle Lynda 3 [place]) [facility] Use as directed to check blood sugar in conjunction with sensors. 1 each Active Breo Ellipta 100-25 mcg/dose diskus inhaler INHALE 1 PUFF BY MOUTH DAILY -RINSE MOUTH WITH WATER AFTER USE. DO NOT SWALLOW 60 each 3 Active predniSONE (DELTASONE) 5 mg tablet TAKE 1 TABLET BY MOUTH EVERY DAY 30 tablet 11 Active furosemide (LASIX) 20 mg tablet Take 1 tablet (20 mg total) by mouth daily Active Zenpep 60,000-189,600- 252,600 unit capsule,delayed release(DR/EC) TAKE 1 CAPSULE BY MOUTH WITH MEALS AND/OR SNACKS 024 Active potassium chloride ER 20 mEq CR tablet TAKE 1 TABLET BY MOUTH TWICE A DAY FOR 5 DAYS 024 Active cholecalciferol (VITAMIN D-3) 2000 unit capsule TAKE 1 CAPSULE BY MOUTH EVERY DAY 90 capsule 3 024 Active omeprazole (PriLOSEC) 20 mg capsuleIndication s:Kidney replaced by transplant TAKE 1 CAPSULE BY MOUTH EVERY DAY 90 capsule 3 025 Active magnesium oxide (MAG-OX) 400 mg (241.3 mg elemental magnesium) tabletIndications :hypomagnesemia Take 1 tablet (400 mg total) by mouth daily 30 tablet 2 025 2025 Active montelukast (SINGULAIR) 10 mg tablet TAKE 1 TABLET BY MOUTH EVERY DAY 90 tablet 2 025 Active gabapentin (NEURONTIN) 100 mg capsule Take 1 capsule (100 mg total) by mouth 3 (three) times a day 90 capsule 11 025 Active atorvastatin (LIPITOR) 20 mg tablet TAKE 1 TABLET BY MOUTH EVERY DAY 90 tablet 3 025 Active blood-glucose sensor (FreeStyle Lynda 3 Plus Sensor) device Use 1 sensor every 15 days 6 each 3 025 Active carvediloL (COREG) 6.25 mg tablet TAKE 1 TABLET BY MOUTH TWICE A DAY WITH MEALS 180 tablet [address] (DEPAKOTE) 500 mg EC tablet TAKE 1 TABLET BY MOUTH THREE TIMES A DAY 270 tablet 11 025 Active zolpidem (AMBIEN) 10 mg tablet Take 1 tablet (10 mg total) by mouth nightly as needed for sleep 30 tablet 1 025 Active traMADoL (ULTRAM) 50 mg tablet Take 2 tablets (100 mg total) by mouth every 6 (six) hours as needed for pain 240 tablet 025 Active ALPRAZolam (XANAX) 0.5 mg tabletIndications :Anxiety Take 1 tablet (0.5 mg total) by mouth 3 (three) times a day as needed for anxiety 90 tablet 025 Active azaTHIOprine (IMURAN) 50 mg tabletIndications :Kidney replaced by transplant TAKE 1 TABLET BY MOUTH EVERY DAY 100 tablet 3 Active azaTHIOprine (IMURAN) 50 mg tabletIndications :Kidney replaced by transplant TAKE 1 TABLET BY MOUTH EVERY DAY 100 tablet 3 [address] (DEPAKOTE) 500 mg EC tablet TAKE 1 TABLET BY MOUTH THREE TIMES A DAY 270 tablet 11 2024 Discontinued carvediloL (COREG) 6.25 mg tablet Take 1 tablet (6.25 mg total) by mouth 2 (two) times a day with meals 60 tablet 11 2024 Discontinued timolol (TIMOPTIC) 0.5 % ophthalmic solution INSTILL ONE DROP INTO BOTH EYES TWICE DAILY 2024 Discontinued(D uplicate order) fluconazole (DIFLUCAN) 150 mg tablet TAKE 1 TABLET (150 MG TOTAL) BY MOUTH ONCE FOR 1 DOSE. 1 tablet 2024 Discontinued zolpidem (AMBIEN) 10 mg tablet TAKE 1 TABLET BY MOUTH DAILY NEEDED FOR SLEEP. 30 tablet 1 2024 Discontinued(R eorder) traMADoL (ULTRAM) 50 mg tablet Take 2 tablets (100 mg total) by mouth every 6 (six) hours as needed for pain 240 tablet 2024 Discontinued(R eorder) ALPRAZolam (XANAX) 0.5 mg tabletIndications :Anxiety TAKE 1 TABLET BY MOUTH THREE TIMES A DAY NEEDED FOR ANXIETY 90 tablet 2024 Discontinued(R eorder) fluconazole (DIFLUCAN) 150 mg tablet TAKE 1 TABLET (150 MG TOTAL) BY MOUTH ONCE FOR 1 DOSE. 1 tablet 2024 Active Problems Patient Care Coordination No te Formatting of this note migh t be different from the original. Lab: [facility]- [phone] Standing Orders q-monthly FK, q3-HgbA1C. Exp. 06/16/25 Home Health: [facility] Home Care Local Pharmacy:[facility] [place] [id number] Specialty Pharmacy: [facility] Problem Noted Date Diagnosed Date Pancreatic insufficiency 07/11/2024 Localized edema 01/22/2024 Assessment & Plan (01/22/2024 4:11 PM CDT): Continue furosemide Abnormal urinalysis/ UTI 11/26/2023 Assessment & Plan (11/29/2023 12:12 AM CDT): Reports experiencing burning sensation during urination and pain during urination for more than 2-3 months and has had multiple visit at [facility] in [place] with multiple abnormal urinalyses and recent cultures growing bowles- sensitive E coli. She has used antibiotics like Macrobid, Augmentin and most recently Bactrim a week back with minimal relief of her symptoms. UA showed 3+ ketones, leukocyte esterase 2+, WBC 50, RBC 20-50, bacteria 2+. Unfortunately, culture was not sent here - Clinically improved with CTX. Transition to Cefdinir on discharge; plan for 7 day course given her history of recurrent/persistent infection. - Patient has appointment with Urology for evaluation in November Electrolyte abnormality 11/26/2023 Assessment & Plan (11/27/2023 3:59 PM CDT): Hypophosphatemia on admission likely 2/2 low p.o. intake. S/p phos, Mg, and K repletion. - Continue to monitor Insomnia 02/24/2023 Assessment & Plan (11/27/2023 4:01 PM CDT): - Continue zolpidem 5 mg nightly (uses 10mg at home) Assessment & Plan (06/25/2023 3:24 PM BRIM POUNCER): Continue Ambien Assessment & Plan (02/24/2023 2:03 AM CDT): Cont home ambien PRN, reduce 10mg -> 5mg Liver lesion, right lobe 10/06/2022 [facility] current 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 Change Lantus from hs to AM to decrease overnight lows. Assessment & Plan (11/05/2022 9:19 AM CDT): Need to minimize risk of hypoglycemia. Assessment & Plan (06/07/2022 5:23 PM BRIM POUNCER): Now improved, but still need to minimize risk of hypoglycemia. Assessment & Plan (03/23/2022 9:03 AM CDT): Now improved, but still need to minimize risk of hypoglycemia Prolonged Q-T interval on ECG 02/23/2021 Assessment & Plan (11/27/2023 3:58 PM CDT): History of QT prolongation. Admission EKG QT 536. - Avoid QT prolonging medications; will take Droperidol off PRN list - Replete to keep K>4 and Mg>2 Assessment & Plan (02/25/2023 10:32 AM CDT): Previously noted, most recently 480s. Caution with QTC agents. - Qtc 02/25 462 Assessment & Plan (02/25/2021 6:05 PM CDT): -QTc 493 on EKG. Also noted on prior EKGs -Received multiple medications in ED that can prolong QTc. Will repeat EKG and monitor on tele -Avoid further QTc prolonging agents -Recommended discontinuing scheduled Reglan use as outpatient. Also prescribed sertraline, although she has brought her medication list which does not include this medication Assessment & Plan (02/24/2021 4:54 PM CDT): -QTc 493 on EKG. Also noted on prior EKGs -Received multiple medications in ED that can prolong QTc. Will repeat EKG and monitor on tele -Avoid further QTc prolonging agents -Recommended discontinuing scheduled Reglan use as outpatient. Also prescribed sertraline, although she has brought her medication list which does not include this medication Assessment & Plan (02/23/2021 11:03 PM CDT): -QTc 493 on EKG. Also noted on prior EKGs -Received multiple medications in ED that can prolong QTc. Will repeat EKG and monitor on tele -Avoid further QTc prolonging agents -Recommended discontinuing scheduled Reglan use as outpatient. Also prescribed sertraline, although she has brought her medication list which does not include this medication. Neuralgia 04/05/2020 Gastroparesis diabeticorum 03/21/2020 Assessment & Plan (11/29/2023 12:10 AM CDT): H/o gastroparesis with multiple fears and last hospitalization for gastroparesis approximately 4 months back. Improved with Droperidol x 2 and PRN Ativan. - Continue insulin regimen as noted elsewhere - Ativan 0.5-1mg q4h PRN - Resume home Haldol PRN on discharge - Oxycodone 10 mg every 4 hours p.r.n. for pain Assessment & Plan (03/23/2022 9:07 AM CDT): Clinically stable, but still affects timing of nutrient and insulin effect. Improved with metoclopramide Assessment & Plan (12/06/2021 4:46 PM CDT): Affects mealtime insulin and nutrient coordination, but she would likely benefit from taking post meal Fiasp to minimize risk of post meal hypoglycemia Assessment & Plan (08/08/2021 3:28 PM BRIM POUNCER): -Affects post meal glucose readings -Closely monitor for hypoglycemia -Symptoms improved with Reglan Assessment & Plan (03/28/2021 8:27 AM CDT): Affects mealtime insulin requirements, need to minimize risk of hypoglycemia Assessment & Plan (04/27/2020 11:49 AM CDT): Currently on Reglan. 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 POD1 N/V and Abd pain. Management per primary. With Poor PO intake, will avoid mealtime insulin at this time. Legally blind 11/15/2019 Assessment & Plan (11/05/2022 9:22 AM CDT): This affects her ability to see a glucose meter and monitor her diabetes safely. She greatly benefits from a continuous glucose monitoring device, which provides alarms for high and low glucoses. Assessment & Plan (06/07/2022 5:24 PM BRIM POUNCER): This affects her ability to see a glucose meter and monitor her diabetes safely. She greatly benefits from a continuous glucose monitoring device, which provides alarms for high and low glucoses. Assessment & Plan (03/23/2022 9:04 AM CDT): This affects her ability to see a glucose meter and monitor her diabetic care safely. She benefits from a continuous glucose monitoring device which provides alarms for high and low glucoses. Assessment & Plan (03/28/2021 8:27 AM CDT): This affects her ability to see a glucose meter and monitor her diabetic care safely. She benefits from a continuous glucose monitoring device which provides alarms for high and low glucoses. Assessment & Plan (03/23/2020 4:31 PM CDT): This affects her ability to see a glucose meter and monitor her diabetic care safely. She would therefore benefit from a continuous glucose monitoring device which would provide alarms for high and low glucoses. Chronic obstructive lung disease 11/15/2019 Assessment & Plan (11/17/2024 3:59 PM CDT): Stable. Assessment & Plan (06/03/2023 5:34 AM BRIM POUNCER): Previous history of smoking. - Continue home inhalers and singulair. Essential hypertension 11/15/2019 Assessment & Plan (11/17/2024 3:59 PM CDT): BP at target Assessment & Plan (06/03/2023 5:41 AM BRIM POUNCER): Hold amlodipine for soft blood pressures. Assessment & Plan (02/24/2023 2:02 AM CDT): Continue amlodipine 5mg BID Assessment & Plan (02/20/2023 4:02 PM CDT): Resume amlodipine Assessment & Plan (04/27/2020 11:49 AM CDT): Blood pressure is normal today. Assessment & Plan (11/15/2019 11:08 AM CDT): Hypertensive in ED, although pt in distress with vomiting and pain. On no antihypertensives at home -Treat symptoms. Monitor closely. Can start meds if needed. Gastroesophageal reflux disease 11/15/2019 Assessment & Plan (02/24/2023 2:02 AM CDT): Continue home PPI. Assessment & Plan (11/15/2019 11:10 AM CDT): Start protonix IV for possible gastritis. On omeprazole at home Hyperlipidemia 11/15/2019 Assessment & Plan (06/03/2023 5:43 AM BRIM POUNCER): Continue home statin. Assessment & Plan (02/24/2023 2:01 AM CDT): Cont home atorva 20mg. Assessment & Plan (11/05/2022 9:21 AM CDT): On atorvastatin 20mg. Optimize glycemic control. 10/2022- TG 173, HDL 66, LDL 66 Assessment & Plan (06/07/2022 5:29 PM BRIM POUNCER): Continue statin therapy (atorvastatin 20mg) and optimize glycemic control. 04/2022- TG 238, HDL 68, LDL 50 Assessment & Plan (03/23/2022 9:03 AM CDT): Continue statin, optimize glycemic control Assessment & Plan (12/06/2021 4:45 PM CDT): Continue statin, optimize glycemic control Assessment & Plan (03/28/2021 8:29 AM CDT): Continue statin, optimize glycemic control Assessment & Plan (03/23/2020 4:36 PM CDT): Continue statin, optimize glycemic control Raynaud's disease 11/15/2019 Bipolar 1 disorder 11/15/2019 Assessment & Plan (11/27/2023 4:01 PM CDT): - Continue depakote 500mg TID, mirtazapine 15mg, sertraline 50mg - Hold home TID haloperidol for now given Droperidol this AM and Qtc prolongation; can restart if QT remains stable. Assessment & Plan (06/03/2023 5:34 AM BRIM POUNCER): - Continue home sertraline, nightly mirtazapine and ambien. Assessment & Plan (02/24/2023 2:02 AM CDT): Cont home Depakote 500mg TID, mirtazapine 7.5mg, sertraline 50mg Assessment & Plan (02/25/2021 6:05 PM CDT): -Continue Depakote 500 TID, also on Xanax 0.25 BID for anxiety which is currently held as Ativan ordered for nausea Assessment & Plan (02/24/2021 4:51 PM CDT): -Continue Depakote 500 TID, also on Xanax 0.25 BID for anxiety which is currently held as Ativan ordered for nausea Assessment & Plan (02/23/2021 10:56 PM CDT): -Continue Depakote 500 TID, also on Xanax 0.25 BID for anxiety which is currently held as Ativan ordered for nausea Assessment & Plan (11/15/2019 12:01 PM CDT): -Cont depakote Asthma 11/15/2019 Assessment & Plan (02/24/2023 2:02 AM CDT): Continue home Bresarika montelukast Assessment & Plan (11/15/2019 12:02 PM CDT): -Cont breo, singulair, and prn albuterol Vitamin D deficiency 07/06/2019 Assessment & Plan (03/23/2022 9:04 AM CDT): Continue long-term supplement Assessment & Plan (12/06/2021 4:43 PM CDT): Continue long-term supplement Assessment & Plan (03/28/2021 8:29 AM CDT): Continue long time supplement Assessment & Plan (04/07/2020 4:55 PM CDT): Continue long-term supplementation Assessment & Plan (03/23/2020 4:35 PM CDT): Continue long time supplement Encounter for aftercare following kidney transpl ant 04/28/2019 Assessment & Plan (03/23/2022 9:06 AM CDT): On steroids, immunosuppressants which affect glycemic control Assessment & Plan (12/06/2021 4:46 PM CDT): On steroids, immunosuppressants which affect glycemic control Assessment & Plan (03/28/2021 8:27 AM CDT): On steroids, immunosuppressants which affect glycemic control Assessment & Plan (03/23/2020 4:32 PM CDT): On steroids, immunosuppressants which affect glycemic control Assessment & Plan (05/14/2019 11:50 AM CDT): 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 Hold azathioprine and pred acutely. -cont oi ppx: valcyte and bactrim Immunosuppression 04/28/2019 Increased infection risk sta tus post immunosuppressive therapy 04/28/2019 High risk medication use 03/12/2019 Assessment & Plan (04/07/2020 4:55 PM CDT): Monitoring insulins, which could cause serious hypoglycemia. Steroid therapy with serious risks of hyperglycemia, metabolic complications. Assessment & Plan (03/12/2019 1:29 PM CDT): High risk medication: requires intensive, high risk insulin regimen, with intensive glycemic monitoring. Increased risk of hypoglycemia in the context of glucocorticoid taper, and variable po intake. Anxiety 11/17/2018 Assessment & Plan (06/25/2023 3:25 PM BRIM POUNCER): Continue sertraline and Xanax Assessment & Plan (06/03/2023 5:33 AM BRIM POUNCER): Continue home xanax PRN Assessment & Plan (02/24/2023 2:03 AM CDT): Continue home Xanax 0.5mg TID PRN Assessment & Plan (10/25/2020 2:51 PM CDT): Possibly could benefit from an SSRI. However will check thyroid panel 1st. Arthritis 11/17/2018 Seasonal allergies 11/17/2018 Type 1 diabetes mellitus with other specified co mplication 05/15/2018 Overview (03/21/2020): Dx age 19 with multiple complications Assessment & Plan (11/17/2024 3:59 PM CDT): To see Endocrinology in 2 weeks blood sugar control is not excellent Assessment & Plan (01/22/2024 4:12 PM CDT): Follows with endo Assessment & Plan (11/27/2023 4:02 PM CDT): History of diabetes with last A1c: 8.4 on 11/18. Home medications: Insulin glargine 20 units nightly, insulin lispro (1:13 carb ratio for breakfast, supper and 1:15 carb ratio for dinner)+ per sliding scale. - Standard Insulin sliding scale (though OK patient requests alterate dosing based on carb counting) - Long acting Insulin (Glargine): 20 - Short acting insulin (Lispro) : 5U TID (AC)+ISS - Monitor Assessment & Plan (06/03/2023 5:41 AM BRIM POUNCER): At home on glargine 28 units nightly and lispro SSI. HgbA1C 8.4 on 03/20. - On presentation with N/V, Ketones +4 and AG 20, high AG resolved with NPH. - Start on lantus 12 units and SSI and titrate as needed with improvement of oral intake. . Assessment & Plan (02/24/2023 2:00 AM CDT): Most recent A1C 8.1%, complicated by hyperglycemia, neuropathy, legal blindness. - Home insulin: Toujeo 28 units qHS, humalog carb count slide - Here: lantus 12, lispro 4, HDSSI - cont home asa, atorva 20mg, gabapentin 100mg TID Assessment & Plan (02/20/2023 4:00 PM CDT): Resume insulin basal and scale Assessment & Plan (11/05/2022 10:48 AM CDT): Hemoglobin A1c is 8.1%. Continue using FreeStyle Lynda for frequent monitoring and safety. She is taking Toujeo AM daily, consistently. She is using carb ratio and sliding scale for Humalog dosing with meals. Recommend decreasing Humalog dose with lunch to prevent afternoon hypoglycemia. -Also, encouraged to decrease insulin dosing on days of increased physical activity to prevent hypoglycemia. In the future, diabetes education would be beneficial for her as she is intelligent and motivated to manage her diabetes. Assessment & Plan (06/07/2022 5:38 PM BRIM POUNCER): Hemoglobin A1c increased to 8.5% on 05/22/2022. Continue using [employer] Lynda for frequent monitoring and safety. She is taking Toujeo AM daily, consistently. She is using carb ratio and sliding scale for Humalog dosing with meals. Within a good margin of safety, recommend increasing her insulin doses to prevent hyperglycemia. She also plans to make diet and lifestyle changes to help better manage BG. In the future, diabetes education would be beneficial for her as she is intelligent and motivated to manage her diabetes. Assessment & Plan (03/23/2022 9:05 AM CDT): Clinically much improved with the Lynda device to help provide low and high alerts. Insulins still running high, so she needs more basal insulin. Need to maintain a good margin of safety. Assessment & Plan (12/06/2021 4:44 PM CDT): Multiple comorbidities, but needs a safe regimen from what she can take insulin after eating in order to minimize the risk of post meal hypoglycemia. Because she is so sensitive to insulin, however, she needs to be able to give this in 1/2 unit increments. Her sugars also trend down overnight, so she needs less basal insulin. Assessment & Plan (08/08/2021 3:28 PM BRIM POUNCER): -Currently taking MDI and using Lynda -A1C on 08/08/21 was 8.2% - Lynda download indicates persistent hyperglycemia with post meal excursions. Will increase Lantus from 18-->20 units at hs. Will also adjust Humalog carb ratio from 1:15 -->1:14. Will follow with her response. -Discussed diet and activity modifications. -Advised to call with any concerns/complaints regarding glucose readings Assessment & Plan (02/25/2021 6:04 PM CDT): -Recent A1c 8.6. BG in 300s in ED treated with lispro 5. -Home regimen: Lantus 18 QHS, lispro as SSI TID (per chart 1:15 carb ratio, 0.5 units >200). Of note, currently has CGM in place. -Continue Lantus 16 QHS + extra LDSSI. Can add scheduled mealtime insulin if needed once taking PO Assessment & Plan (02/24/2021 4:51 PM CDT): -Recent A1c 8.6. BG in 300s in ED treated with lispro 5. -Home regimen: Lantus 18 QHS, lispro as SSI TID (per chart 1:15 carb ratio, 0.5 units >200). Of note, currently has CGM in place. -Continue Lantus 16 QHS + extra LDSSI. Can add scheduled mealtime insulin if needed once taking PO. Assessment & Plan (02/23/2021 10:52 PM CDT): -Recent A1c 8.6. BG in 300s in ED treated with lispro 5. -Home regimen: Lantus 18 QHS, lispro as SSI TID (per chart 1:15 carb ratio, 0.5 units >200). Of note, currently has CGM in place. -Continue Lantus 16 QHS + extra LDSSI. Can add scheduled mealtime insulin if needed once taking PO. Assessment & Plan (04/27/2020 11:48 AM CDT): She is followed by Dr. García. Will continue present Rx as per his instructions. Assessment & Plan (04/07/2020 4:54 PM CDT): Glucoses markedly improved, now starting to eat postoperatively. She is very aware of how to manage her diabetes and will maintain her current doses immediately upon discharge, then go back to her pre-admission regimen once she is eating and back to usual activity. She will follow-up with Dr. García in the office, keeping informed as to glucose progress and appointments as previously arranged Assessment & Plan (04/06/2020 3:31 PM CDT): Patient at baseline with highly variable glucose levels, with a propensity to have hypoglycemia in past and is sensitive to high insulin doses. Has been persistently >200 on POC glucose and BMP checks while inpatient. Does have Freestyle Lynda and does check while inpatient. Instructed patient that this cannot replicate a POC glucose monitor check by nursing staff, and if she has concern for her blood glucose level she can alert nursing staff to check POC glucose. For insulin management, recommend the following: Basal: Increase to Lantus 16 unit QHS Mealtime: Patient has poor PO intake at the moment, so can hold off using this for now. - When she does start eating full meals, may utilize 1 unit Lispro POST-meal; if eaten <50% of plate, do NOT give any. Correctional: Use the Extra Low Dose Sliding Scale insulin Lispro, as this best reflect her home correctional doses. Assessment & Plan (03/23/2020 4:35 PM CDT): Glucoses highly variable, but she is blind and has difficulty seeing her glucoses and in making appropriate management decisions. In addition, she is very sensitive to small amounts of insulin and needs a device to provide smaller increments. Intelligent, motivated and will benefit from more advanced Education but also would benefit from a pump and continuous glucose monitor. 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 No evidence of DKA on admission. BG 361 treated in ED with 7u lispro. Last A1c 7 -Check HgbA1c. Check BG QID -Cont insulin -IVFs -BMP AM -Consult Diabetes service Assessment & Plan (05/14/2019 11:50 AM CDT): Presentation with DKA. Suspect triggered by possible GI/ infection, s/p insulin gtt and anion gap now closed. - Takes tujeo 18u qhs, 5-7 lispro tid. Cont lantus 15u, 4u tid lispro + ssi Assessment & Plan (05/13/2019 12:51 AM CDT): - Presentation with DKA. Suspect triggered by possible GI/ infection - s/p insulin gtt and anion gap now closed. - Takes tujeo 18u qhs, 5-[address] on lantus 15u, 4u tid lispro + ssi and titrate as needed Assessment & Plan (03/12/2019 1:27 PM CDT): A1c 7.2%. Her diabetes was diagnosed at a young age, and she has experienced DKA. She has also had multiple severe complications including nephropathy, retinopathy. She denies thyroid disease. Her diabetes may be a PREETHI type or have autoimmune features. Home regimen: Toujeo 17 u nightly, SSI 1-2 u Humalog with meals IF postprandial BG >200 -MARVIN Ab and c-peptide are in process in lab. Please note these pending labs in discharge summary so that PCP can follow up She is now s/p kidney transplant and high doses of steroids which exacerbated hyperglycemia. She has been receiving NPH with her prednisone doses. BG remained elevated yesterday. She has been receiving 6 u lantus nightly with mealtime and SSI humalog. Discharge recommendations: -Toujeo 8 u nightly -Humalog 10 u TID with meals. Patient may take mealtime insulin with meals instead of waiting until post prandial. -Follow up with PCP for BG management. As her steroid dose is tapered she will likely require less mealtime insulin. Assessment & Plan (03/11/2019 9:48 AM CDT): A1c 7.2%. Her diabetes was diagnosed at a young age, and she has experienced DKA. She has also had multiple severe complications including nephropathy, retinopathy. She denies thyroid disease. Her diabetes may be a PREETHI type or have autoimmune features. -Please check MARVIN Ab and c-peptide She is not s/p kidney transplant and receiving high doses of steroids which will exacerbate hyperglycemia. -Please give NPH 10 u with prednisone 50 mg dose today -Tomorrow she will begin prednisone 20 mg daily -As steroid doses are tapered we expect to require less NPH Home regimen is toujeo 17 units nightly, humalog 1-2 u with meals IF post- prandial BG >200. -Continue glargine 6 units nightly -Humalog SSI with meals -Continue Humalog 3 u TID AC -Accuchecks TID AC, bedtime, 2AM Assessment & Plan (03/10/2019 6:52 PM CDT): A1c 7.2%. Her diabetes was diagnosed at a young age, and she has experienced DKA. She has also had multiple severe complications including nephropathy, retinopathy. She denies thyroid disease. Her diabetes may be a PREETHI type or have autoimmune features. -Please check MARVIN Ab and c-peptide She is not s/p kidney transplant and receiving high doses of steroids which will exacerbate hyperglycemia. -Please give NPH 10 u with prednisone 50 mg dose tomorrow morning -As steroid doses are tapered we expect to require less NPH Home glargine dose is 17 units nightly. -Continue glargine 6 units nightly -Humalog SSI with meals -Humalog 3 u TID AC -Accuchecks TID AC, bedtime, 2AM Chronic hepatitis C without hepatic coma 018 Overview (05/15/2018): Genotype 1a Assessment & Plan (11/05/2022 9:21 AM CDT): Managed by Dr. Bhatt. Needs optimal glycemic control. Assessment & Plan (06/07/2022 5:25 PM BRIM POUNCER): Managed by Dr. Bhatt. Needs optimal glycemic control. Assessment & Plan (03/23/2022 9:06 AM CDT): Managed by Dr. Bhatt. Needs optimal glycemic control Assessment & Plan (07/11/2020 5:49 PM BRIM POUNCER): Resolved following course of antiviral therapy. Her risk of relapse at this point is essentially zero. She will remain hepatitis C antibo
--- OUTSIDE RECORDS SUMMARY | 2024-12-11 12:08 | XMS_ITS ---
Author Organization [facility] Address [address] [place] [address] Care Team Providers Care Master Brewer Name Role Phone Ramon Sylvester MD Primary Care Provider [phone] Burak Blue MD Unavailable [phone] Juana Jimenez RN Unavailable Sylwia García MD Unavailable Igor Yeager DO Unavailable Cristina Boyer RN Unavailable Cyn Fang NP Unavailable Active Problems Patient Care Coordination No te Formatting of this note migh t be different from the original. Lab: [facility]- [phone] Standing Orders q-monthly FK, q3-HgbA1C. Exp. 06/16/25 Home Health: [facility] Home Care Local Pharmacy:[id number] Specialty Pharmacy: [facility] Problem Noted Date Diagnosed Date Pancreatic insufficiency 07/11/2024 Localized edema 01/22/2024 Assessment & Plan (01/22/2024 4:11 PM CDT): Continue furosemide Abnormal urinalysis/ UTI 11/26/2023 Assessment & Plan (11/29/2023 12:12 AM CDT): Reports experiencing burning sensation during urination and pain during urination for more than 2-3 months and has had multiple visit at [facility] in [place] with multiple abnormal urinalyses and recent cultures [...] home) Assessment & Plan (06/25/2023 3:24 PM HUMAN RESOURCE INTERN): Continue Ambien Assessment & Plan (02/24/2023 2:03 AM CDT): Cont home ambien PRN, reduce 10mg -> 5mg 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 Change Lantus from hs to AM to decrease overnight lows. Assessment & Plan (11/05/2022 9:19 AM CDT): Need to minimize risk of hypoglycemia. Assessment & Plan (06/07/2022 5:23 PM HUMAN RESOURCE INTERN): Now improved, but still need to minimize [...] hypoglycemia Assessment & Plan (08/08/2021 3:28 PM HUMAN RESOURCE INTERN): -Affects post meal glucose readings -Closely monitor [...] 3:25 PM CDT): S/p right nephrectomy of [place] right kidney. POD1 N/V and Abd pain. [...] glucoses. Assessment & Plan (06/07/2022 5:24 PM HUMAN RESOURCE INTERN): This affects her ability to see a [...] Stable. Assessment & Plan (06/03/2023 5:34 AM HUMAN RESOURCE INTERN): Previous history of smoking. - Continue home inhalers and singulair. Essential hypertension 11/15/2019 Assessment & Plan (11/17/2024 3:59 PM CDT): BP at target Assessment & Plan (06/03/2023 5:41 AM HUMAN RESOURCE INTERN): Hold amlodipine for soft blood pressures. Assessment [...] 11/15/2019 Assessment & Plan (06/03/2023 5:43 AM HUMAN RESOURCE INTERN): Continue home statin. Assessment & Plan (02/24/2023 2:01 AM CDT): Cont home atorva 20mg. Assessment & Plan (11/05/2022 9:21 AM CDT): On atorvastatin 20mg. Optimize glycemic control. 10/2022- TG 173, HDL 66, LDL 66 Assessment & Plan (06/07/2022 5:29 PM HUMAN RESOURCE INTERN): Continue statin therapy (atorvastatin 20mg) and optimize [...] stable. 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 Assessment & Plan (06/07/2022 5:38 PM HUMAN RESOURCE INTERN): Hemoglobin A1c increased to 8.5% on 05/22/2022. [...] insulin. Assessment & Plan (08/08/2021 3:28 PM HUMAN RESOURCE INTERN): -Currently taking MDI and using Lynda -A1C [...] thyroid disease. Her diabetes may be a PRETEHI type or have autoimmune features. -Please check [...] control. Assessment & Plan (06/07/2022 5:25 PM HUMAN RESOURCE INTERN): Managed by Dr. Bhatt. Needs optimal glycemic control. Assessment & Plan (03/23/2022 9:06 AM CDT): Managed by Dr. Bahtt. Needs optimal glycemic control Assessment & Plan (07/11/2020 5:49 PM HUMAN RESOURCE INTERN): Resolved following course of antiviral therapy. Her risk of relapse at this point is essentially zero. She will remain hepatitis C antibody positive, however, the undetectable viral load is consistent with the absence of a hepatitis C infection. Barring new developments, I see no reason for additional follow-up. Please let me know if I can assist. Assessment & Plan (04/27/2020 11:49 AM CDT): This appears stable. Assessment & Plan (11/15/2019 11:07 AM CDT): Hx HCV on Epclusa -Cont when able to take PO Assessment & Plan (07/06/2019 6:15 PM HUMAN RESOURCE INTERN): I discussed the natural history of chronic hepatitis C, including the potential for progression to cirrhosis, liver failure, development of liver cancer, need for a liver transplant, and . I discussed currently available antiviral agents, including their efficacy and adverse effects. I discussed the technique of liver biopsy and the use of liver histology to assist in the decision to use antiviral agents. I discussed risk factors for transmission, based on blood to blood contact. I recommended not sharing a toothbrush or razor blade. The risk of sexual transmission is less than 1% in a monogamous relationship. However, if there is concern, a condom should prevent transmission of the hepatitis C virus. I discussed the effect of heavy alcohol use on hepatitis C and how the disease can be accelerated. We discussed currently available antiviral therapy, including its efficacy, side effects, and cost. Currently, I see no obvious contraindications to antiviral therapy. I see no contraindication to the use of antiviral therapy following a kidney transplant. I've ordered labs today to reassess liver function and a hepatitis-C viral load. When all results are complete, I will seek approval for antiviral therapy. I spoke with the patient regarding antiviral therapy for chronic hepatitis C. I told the patient I have given promotional talks for [employer] and [employer], and that I was paid for these talks. I told the patient I may prescribe medicines manufactured by any of these companies. I told the patient any decisions regarding their care would be made with their best interests in mind and with the best chance of curing their hepatitis C. Assessment & Plan (05/15/2018 6:30 PM CDT): Chronic hepatitis C. I discussed the natural history of chronic hepatitis C, including the potential for progression to cirrhosis, liver failure, development of liver cancer, need for a liver transplant, and . I discussed currently available antiviral agents, including their efficacy and adverse effects. I discussed the technique of liver biopsy and the use of liver histology to assist in the decision to use antiviral agents. I discussed risk factors for transmission, based on blood to blood contact. I recommended not sharing a toothbrush or razor blade. The risk of sexual transmission is less than 1% in a monogamous relationship. However, if there is concern, a condom should prevent transmission of the hepatitis C virus. I discussed the effect of heavy alcohol use on hepatitis C and how the disease can be accelerated. We discussed currently available antiviral therapy, including its efficacy, side effects, and cost. Currently, I see no obvious contraindications to antiviral therapy. I spoke with the patient regarding antiviral therapy for chronic hepatitis C. 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 I told the patient I may prescribe medicines manufactured by any of these companies. I told the patient any decisions regarding their care would be made with their best interests in mind and with the best chance of curing their hepatitis C. There are no contraindications to being placed on the waiting list for a kidney transplant. However, I would not pursue antiviral therapy. If she is on the list with chronic hepatitis-C, she becomes a potential recipient of a hepatitis-C positive donor. This could greatly accelerate her position on the waiting list. Treatment of hepatitis-C following a kidney transplant is associated with similar response rates to those prior to kidney transplantation. I see no risk of her liver disease progressing and an accelerated fashion while she waits for the kidney transplant. I will be happy to see her on an annual basis or when clinically indicated. Gout 05/15/2018 Fibromyalgia 05/15/2018 Renal transplant recipient 03/17/2018 Assessment & Plan (11/17/2024 3:59 PM CDT): Stable doing well. Follows with transplant Assessment & Plan (11/29/2023 12:13 AM CDT): On Imuran 50mg, tacro R 3mg, pred 5mg , reports compliance with medication - Pharmacy recommends holding Tacro tomorrow based on level; resume the day after Assessment & Plan (02/25/2023 10:30 AM CDT): Euvolemic on admission, reporting adherence to tacro but may have vomited other meds. - cont home Imuran 50mg, tacro R 3mg, pred 5mg - daily tacro levels, Is/Os, avoid nephrotoxics - renal transplant for random tacro 9.3. Cont current dose. Assessment & Plan (02/20/2023 6:17 PM CDT): Resumed oral home meds tacrolimus, azathioprine and prednisone 5 mg Patient is PO intolerant Consult placed to nephrology for further guidance Assessment & Plan (11/05/2022 9:22 AM CDT): Taking daily immunosuppressants which complicate glycemic management. Assessment & Plan (06/07/2022 5:25 PM HUMAN RESOURCE INTERN): Taking daily immunosuppressants which complicate glycemic management. Assessment & Plan (08/06/2021 3:09 PM HUMAN RESOURCE INTERN): -shelter use of immunosuppressants and steroids complicates diabetes management. Assessment & Plan (02/25/2021 6:04 PM CDT): -Cr at baseline -Continue Envarsus 3mg, AZA 50, pred 5 -monitor tacrolimus trough -Reports acyclovir, Bactrim ppx previously discontinued Assessment & Plan (02/24/2021 4:50 PM CDT): -Cr at baseline -Continue Envarsus 3mg, AZA 50, pred 5 -monitor tacrolimus trough -Reports acyclovir, Bactrim ppx previously discontinued Assessment & Plan (02/23/2021 10:50 PM CDT): -Cr at baseline -Continue Envarsus 3mg, AZA 50, pred 5 -Check FK trough in AM -Reports acyclovir, Bactrim ppx previously discontinued Assessment & Plan (04/27/2020 11:48 AM CDT): Followed by Renal at this time. Most recent creatinine was normal. Assessment & Plan (04/06/2020 3:24 PM CDT): S/p Renal Transplant 02/2019. On Chronic immunosuppressant, including prednisone 5mg daily, that influence her blood sugar control. 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 Cr stable at 0.86 -Cont prednisone, azathioprine, and tacrolimus -Cont OI prophylaxis -Check tacrolimus level -Consult renal transplant to notify of pt admit -Monitor cr and UOP Assessment & Plan (03/12/2019 1:28 PM CDT): Now s/p kidney transplant. Allograft functioning well. Patient is on immune suppression with steroids which exacerbates hyperglycemia. Her insulin requirements may change now that she is longer requiring dialysis due to increased insulin clearance. Diabetic retinopathy 02/25/2017 Vitreous syneresis 02/25/2017 Severe nonproliferative diabetic retinopathy Assessment & Plan (02/24/2023 2:00 AM CDT): Patient is legally blind with reduced vision. Assessment & Plan (12/06/2021 4:45 PM CDT): Although legally blind, she is able to function somewhat and needs to preserve what ever vision she has. I encouraged her to see an visiting teacher again just to make sure that she does or does not need ongoing follow-up Assessment & Plan (08/06/2021 3:07 PM HUMAN RESOURCE INTERN): -Patient is legally blind -CGM allows for increase in safety as there is audile alarm for high and low blood sugars Current Treatment and Therapy Plans No current plan information found. Past Treatment and Therapy Plans Lifetime Dose Tracking * Chemical Lifetime Dose Automatic Entry Manual Entr y DLP 3,173 mGycm 3,173 mGycm 0 mGycm Resolved Problems Problem Noted Date Diagnosed Date Resolved Date Ketosis 06/03/2023 06/25/2023 Assessment & Plan (06/03/2023 5:41 AM HUMAN RESOURCE INTERN): Patient presenting with nausea and vomiting that started 1 day prior to presentation. Has a history of presentation with starvation ketosis. On laboratory workup was found to have an AG of 20, Bicarb 22, PH 7.41, UA positive for 4+ketones and glucose. DDx: DKA vs starvation ketosis. - S/p IVF in the ED, 5 units of NPH, SSI Q 4 hours, and lantus given - Repeat BMP with resolution of high AG - Continue IVF COVID 06/03/2023 06/25/2023 Assessment & Plan (06/03/2023 5:45 AM HUMAN RESOURCE INTERN): Presenting with 1 week history of UT symptoms, cough and fevers. Found to be COVID positive on workup. CXR clear and with no oxygen requirements. - CTM - Airborne precautions. Starvation ketoacidosis w/ l actic acidosis secondary to intractable nausea and vomiting, complicated by hypomagnesemia and hypophosphotemia 02/23/2023 06/25/2023 Assessment & Plan (02/25/2023 10:38 AM CDT): P/w ongoing intractable nausea and vomiting recurrent since discharge one day prior. Known diagnsois of gastroparesis w/ prior flares of cyclical vomiting, follows w/ GI also due to HepC ([place]). Lipase 7.1, lactate 2.4. Hyperglycemic without gap. BG 7.31/57, UA w/ 3+ketones. S/p 2L LR and droperidol in ED, improved. On admission, requesting to eat. - on home reglan PRN (switched to TID before meals, cont at d/c) and mirtazapine, replete electrolytes - tolerating regular diet; denies abd pain - ODT zofran at discharge F/u GI outpt 03/12 Has immunity to COVID-19 virus 03/28/2021 06/25/2023 Overview (12/05/2021): Pfizer vaccine x2 spring 2020; booster 04/17/2021 Assessment & Plan (12/05/2021 2:07 PM CDT): Fully vaccinated, eligible for booster. Non-intractable vomiting 03/28/2021 Overview (03/28/2021): Added automatically from request for surgery [id number] Colon cancer screening 03/28/202104/19 Overview (03/28/2021): Added automatically from request for surgery [id number] Gastroparesis 02/23/2021 06/25/2023 Assessment & Plan (02/20/2023 3:59 PM CDT): Acute on chronic, moderate For nausea on zofran iv, and pepsid For pain: on iv dilaudid Q3 hours to be spaced to 4-6 hours tomorrow, risk of opioid explained, patient verbalized understanding stated that her pain was sever and this is the only frequency that can help lower the exacerbation time for the first day. Assessment & Plan (03/28/2021 8:27 AM CDT): Assessment & Plan (02/25/2021 6:05 PM CDT): Will order Reglan as QT improves Ordered EKG this am Monitor QTc Assessment & Plan (02/24/2021 4:53 PM CDT): Will order Reglan as QT improves Ordered EKG this am Monitor QTc Uncontrolled hypertension 02/23/2021 Assessment & Plan (08/08/2021 3:29 PM HUMAN RESOURCE INTERN): -BP today is 132/78 -Will continue same antihypertensive medications at this time. Assessment & Plan (02/25/2021 6:05 PM CDT): -BP up to 215/111 in ED, asymptomatic. Given hydralazine 10 IV in ED. -Hydralazine 25 PO TID currently ordered for persistent severe hypertension. Previously prescribed losartan 25, however not currently taking. Can restart losartan if needed and if Cr remains stable Assessment & Plan (02/24/2021 4:53 PM CDT): -BP up to 215/111 in ED, asymptomatic. Given hydralazine 10 IV in ED. -Hydralazine 25 PO TID currently ordered for persistent severe hypertension. Previously prescribed losartan 25, however not currently taking. Can restart losartan if needed and if Cr remains stable Assessment & Plan (02/23/2021 10:55 PM CDT): -BP up to 215/111 in ED, asymptomatic. Given hydralazine 10 IV in ED. -Hydralazine 25 PO TID currently ordered for persistent severe hypertension. Previously prescribed losartan 25, however not currently taking. Can restart losartan if needed and if Cr remains stable. Nausea vomiting and diarrhea 02/23/2021 03/23/2022 Assessment & Plan (02/25/2021 6:05 PM CDT): -Presenting with N/V/D x1d. Reports multiple similar prior episodes. Ddx includes viral gastroenteritis, cyclic vomiting syndrome, gastroparesis. -s/p dronabinol x3, Zofran, Reglan, IV opiates in ED. Of note, pt has mildly prolonged Qtc on EKG and would avoid further QT prolonging agents at this time. Will order Ativan 0.5 Q6H PRN for nausea, can also consider olanzapine if needed as has less risk for QTc prolongation or scopolamine patch. She does not meet [facility] criteria for use of palonosetron. -ordered stool pcr for Norovirus, C. Diff assay, and stool for ova and parasite Continue IVF Assessment & Plan (02/24/2021 4:56 PM CDT): -Presenting with N/V/D x1d. Reports multiple similar prior episodes. Ddx includes viral gastroenteritis, cyclic vomiting syndrome, gastroparesis. -s/p dronabinol x3, Zofran, Reglan, IV opiates in ED. Of note, pt has mildly prolonged Qtc on EKG and would avoid further QT prolonging agents at this time. Will order Ativan 0.5 Q6H PRN for nausea, can also consider olanzapine if needed as has less risk for QTc prolongation or scopolamine patch. She does not meet [facility] criteria for use of palonosetron. -ordered stool pcr for Norovirus, C. Diff assay, and stool for ova and parasite Continue IVF Assessment & Plan (02/23/2021 11:01 PM CDT): -Presenting with N/V/D x1d. Reports multiple similar prior episodes. Ddx includes viral gastroenteritis, cyclic vomiting syndrome, gastroparesis. -s/p dronabinol x3, Zofran, Reglan, IV opiates in ED. Of note, pt has mildly prolonged Qtc on EKG and would avoid further QT prolonging agents at this time. Will order Ativan 0.5 Q6H PRN for nausea, can also consider olanzapine if needed as has less risk for QTc prolongation or scopolamine patch. She does not meet [facility] criteria for use of palonosetron. -Check Cdiff, stool cx if continues to have diarrhea Acute cystitis without hematuria 12/22/2020 06/25/2023 Assessment & Plan (12/22/2020 2:21 PM CDT): Repeat UA, C & S in 2 weeks after completing Bactrim DS Work note for this week Acute otitis media 08/03/2020 Assessment & Plan (08/03/2020 3:05 PM HUMAN RESOURCE INTERN): Plan is to give Augmentin 875/125 b.i.d. times 10 days began Cortisporin. Will refer to ENT or urgently PICC as she is on immunosuppressive drugs. She will go to the emergency room if her situation worsens. Abdominal pain 04/17/2020 12/22/2020 Acute postoperative abdominal pain 04/05/2020 12/22/2020 Renal cell cancer, right 03/21/2020 Overview (03/21/2020): Non-functioning Diabetic foot ulcer 01/04/2020 06/25/20 23 Low back pain 11/15/2019 06/25/2023 Dehydration 11/15/2019 11/15/2019 Assessment & Plan (11/15/2019 11:12 AM CDT): Dehydration in setting of N/V [id number]|2024-12-11 10:40:00|2024-12-11 10:40:00|XMS_ITS|BKG DAJORDI|External Medical Summaries|[id number]|" Oncology Summary Created on: December 11, 2024 Juaquin Rey : 1975 Sex: Female Author Organization [facility] al Address [address] [place] [address] Care Team Providers Care Master Brewer Name Role Phone Ramon Sylvester MD Primary Care Provider Burak Blue MD Unavailable [phone] Juana Jimenez RN Unavailable Sylwia García MD Unavailable Igor Yeager DO Unavailable [phone] Cristina Boyer RN Unavailable Cyn Fang NP Unavailable [phone] Active Problems Patient Care Coordination No te Formatting of this note migh t be different from the original. Lab: [facility]- [phone] Standing Orders q-monthly FK, q3-HgbA1C. Exp. 06/16/25 Home Health: [facility] Home Care Local Pharmacy:[id number] Specialty Pharmacy: [facility] Problem Noted Date Diagnosed Date Pancreatic insufficiency 07/11/2024 Localized edema 01/22/2024 Assessment & Plan (01/22/2024 4:11 PM CDT): Continue furosemide Abnormal urinalysis/ UTI 11/26/2023 Assessment & Plan (11/29/2023 12:12 AM CDT): Reports experiencing burning sensation during urination and pain during urination for more than 2-3 months and has had multiple visit at [facility] in [place] with multiple abnormal urinalyses and recent cultures [...] home) Assessment & Plan (06/25/2023 3:24 PM HUMAN RESOURCE INTERN): Continue Ambien Assessment & Plan (02/24/2023 2:03 AM CDT): Cont home ambien PRN, reduce 10mg -> 5mg Liver lesion, right lobe 10/06/2022 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 Change Lantus from hs to AM to decrease overnight lows. Assessment & Plan (11/05/2022 9:19 AM CDT): Need to minimize risk of hypoglycemia. Assessment & Plan (06/07/2022 5:23 PM HUMAN RESOURCE INTERN): Now improved, but still need to minimize [...] hypoglycemia Assessment & Plan (08/08/2021 3:28 PM HUMAN RESOURCE INTERN): -Affects post meal glucose readings -Closely monitor [...] 3:25 PM CDT): S/p right nephrectomy of [place] right kidney. POD1 N/V and Abd pain. [...] glucoses. Assessment & Plan (06/07/2022 5:24 PM HUMAN RESOURCE INTERN): This affects her ability to see a [...] Stable. Assessment & Plan (06/03/2023 5:34 AM HUMAN RESOURCE INTERN): Previous history of smoking. - Continue home inhalers and singulair. Essential hypertension 11/15/2019 Assessment & Plan (11/17/2024 3:59 PM CDT): BP at target Assessment & Plan (06/03/2023 5:41 AM HUMAN RESOURCE INTERN): Hold amlodipine for soft blood pressures. Assessment [...] 11/15/2019 Assessment & Plan (06/03/2023 5:43 AM HUMAN RESOURCE INTERN): Continue home statin. Assessment & Plan (02/24/2023 2:01 AM CDT): Cont home atorva 20mg. Assessment & Plan (11/05/2022 9:21 AM CDT): On atorvastatin 20mg. Optimize glycemic control. 10/2022- TG 173, HDL 66, LDL 66 Assessment & Plan (06/07/2022 5:29 PM HUMAN RESOURCE INTERN): Continue statin therapy (atorvastatin 20mg) and optimize [...] stable. 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 Assessment & Plan (06/07/2022 5:38 PM HUMAN RESOURCE INTERN): Hemoglobin A1c increased to 8.5% on 05/22/2022. [...] insulin. Assessment & Plan (08/08/2021 3:28 PM HUMAN RESOURCE INTERN): -Currently taking MDI and using Lynda -A1C [...] control. Assessment & Plan (06/07/2022 5:25 PM HUMAN RESOURCE INTERN): Managed by Dr. Bhatt. Needs optimal glycemic control. Assessment & Plan (03/23/2022 9:06 AM CDT): Managed by Dr. Bhatt. Needs optimal glycemic control Assessment & Plan (07/11/2020 5:49 PM HUMAN RESOURCE INTERN): Resolved following course of antiviral therapy. Her risk of relapse at this point is essentially zero. She will remain hepatitis C antibody positive, however, the undetectable viral load is consistent with the absence of a hepatitis C infection. Barring new developments, I see no reason for additional follow-up. Please let me know if I can assist. Assessment & Plan (04/27/2020 11:49 AM CDT): This appears stable. Assessment & Plan (11/15/2019 11:07 AM CDT): Hx HCV on Epclusa -Cont when able to take PO Assessment & Plan (07/06/2019 6:15 PM HUMAN RESOURCE INTERN): I discussed the natural history of chronic hepatitis C, including the potential for progression to cirrhosis, liver failure, development of liver cancer, need for a liver transplant, and . I discussed currently available antiviral agents, including their efficacy and adverse effects. I discussed the technique of liver biopsy and the use of liver histology to assist in the decision to use antiviral agents. I discussed risk factors for transmission, based on blood to blood contact. I recommended not sharing a toothbrush or razor blade. The risk of sexual transmission is less than 1% in a monogamous relationship. However, if there is concern, a condom should prevent transmission of the hepatitis C virus. I discussed the effect of heavy alcohol use on hepatitis C and how the disease can be accelerated. We discussed currently available antiviral therapy, including its efficacy, side effects, and cost. Currently, I see no obvious contraindications to antiviral therapy. I see no contraindication to the use of antiviral therapy following a kidney transplant. I've ordered labs today to reassess liver function and a hepatitis-C viral load. When all results are complete, I will seek approval for antiviral therapy. I spoke with the patient regarding antiviral therapy for chronic hepatitis C. I told the patient I have given promotional talks for [employer], and that I was paid for these talks. I told the patient I may prescribe medicines manufactured by any of these companies. I told the patient any decisions regarding their care would be made with their best interests in mind and with the best chance of curing their hepatitis C. Assessment & Plan (05/15/2018 6:30 PM CDT): Chronic hepatitis C. I discussed the natural history of chronic hepatitis C, including the potential for progression to cirrhosis, liver failure, development of liver cancer, need for a liver transplant, and . I discussed currently available antiviral agents, including their efficacy and adverse effects. I discussed the technique of liver biopsy and the use of liver histology to assist in the decision to use antiviral agents. I discussed risk factors for transmission, based on blood to blood contact. I recommended not sharing a toothbrush or razor blade. The risk of sexual transmission is less than 1% in a monogamous relationship. However, if there is concern, a condom should prevent transmission of the hepatitis C virus. I discussed the effect of heavy alcohol use on hepatitis C and how the disease can be accelerated. We discussed currently available antiviral therapy, including its efficacy, side effects, and cost. Currently, I see no obvious contraindications to antiviral therapy. I spoke with the patient regarding antiviral therapy for chronic hepatitis C. 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 I told the patient I may prescribe medicines manufactured by any of these companies. I told the patient any decisions regarding their care would be made with their best interests in mind and with the best chance of curing their hepatitis C. There are no contraindications to being placed on the waiting list for a kidney transplant. However, I would not pursue antiviral therapy. If she is on the list with chronic hepatitis-C, she becomes a potential recipient of a hepatitis-C positive donor. This could greatly accelerate her position on the waiting list. Treatment of hepatitis-C following a kidney transplant is associated with similar response rates to those prior to kidney transplantation. I see no risk of her liver disease progressing and an accelerated fashion while she waits for the kidney transplant. I will be happy to see her on an annual basis or when clinically indicated. Gout 05/15/2018 Fibromyalgia 05/15/2018 Renal transplant recipient 03/17/2018 Assessment & Plan (11/17/2024 3:59 PM CDT): Stable doing well. Follows with transplant Assessment & Plan (11/29/2023 12:13 AM CDT): On Imuran 50mg, tacro R 3mg, pred 5mg , reports compliance with medication - Pharmacy recommends holding Tacro tomorrow based on level; resume the day after Assessment & Plan (02/25/2023 10:30 AM CDT): Euvolemic on admission, reporting adherence to tacro but may have vomited other meds. - cont home Imuran 50mg, tacro R 3mg, pred 5mg - daily tacro levels, Is/Os, avoid nephrotoxics - renal transplant for random tacro 9.3. Cont current dose. Assessment & Plan (02/20/2023 6:17 PM CDT): Resumed oral home meds tacrolimus, azathioprine and prednisone 5 mg Patient is PO intolerant Consult placed to nephrology for further guidance Assessment & Plan (11/05/2022 9:22 AM CDT): Taking daily immunosuppressants which complicate glycemic management. Assessment & Plan (06/07/2022 5:25 PM HUMAN RESOURCE INTERN): Taking daily immunosuppressants which complicate glycemic management. 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 Assessment & Plan (02/25/2021 6:04 PM CDT): -Cr at baseline -Continue Envarsus 3mg, AZA 50, pred 5 -monitor tacrolimus trough -Reports acyclovir, Bactrim ppx previously discontinued Assessment & Plan (02/24/2021 4:50 PM CDT): -Cr at baseline -Continue Envarsus 3mg, AZA 50, pred 5 -monitor tacrolimus trough -Reports acyclovir, Bactrim ppx previously discontinued Assessment & Plan (02/23/2021 10:50 PM CDT): -Cr at baseline -Continue Envarsus 3mg, AZA 50, pred 5 -Check FK trough in AM -Reports acyclovir, Bactrim ppx previously discontinued Assessment & Plan (04/27/2020 11:48 AM CDT): Followed by Renal at this time. Most recent creatinine was normal. Assessment & Plan (04/06/2020 3:24 PM CDT): S/p Renal Transplant 02/2019. On Chronic immunosuppressant, including prednisone 5mg daily, that influence her blood sugar control. 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 Cr stable at 0.86 -Cont prednisone, azathioprine, and tacrolimus -Cont OI prophylaxis -Check tacrolimus level -Consult renal transplant to notify of pt admit -Monitor cr and UOP Assessment & Plan (03/12/2019 1:28 PM CDT): Now s/p kidney transplant. Allograft functioning well. Patient is on immune suppression with steroids which exacerbates hyperglycemia. Her insulin requirements may change now that she is longer requiring dialysis due to increased insulin clearance. Diabetic retinopathy 02/25/2017 Vitreous syneresis 02/25/2017 Severe nonproliferative diabetic retinopathy Assessment & Plan (02/24/2023 2:00 AM CDT): Patient is legally blind with reduced vision. Assessment & Plan (12/06/2021 4:45 PM CDT): Although legally blind, she is able to function somewhat and needs to preserve what ever vision she has. I encouraged her to see an visiting teacher again just to make sure that she does or does not need ongoing follow-up Assessment & Plan (08/06/2021 3:07 PM HUMAN RESOURCE INTERN): -Patient is legally blind -CGM allows for increase in safety as there is audile alarm for high and low blood sugars Current Treatment and Therapy Plans No current plan information found. Past Treatment and Therapy Plans Lifetime Dose Tracking * Chemical Lifetime Dose Automatic Entry Manual Entr y DLP 3,173 mGycm 3,173 mGycm 0 mGycm Resolved Problems Problem Noted Date Diagnosed Date Resolved Date Ketosis 06/03/2023 06/25/2023 Assessment & Plan (06/03/2023 5:41 AM HUMAN RESOURCE INTERN): Patient presenting with nausea and vomiting that started 1 day prior to presentation. Has a history of presentation with starvation ketosis. On laboratory workup was found to have an AG of 20, Bicarb 22, PH 7.41, UA positive for 4+ketones and glucose. DDx: DKA vs starvation ketosis. - S/p IVF in the ED, 5 units of NPH, SSI Q 4 hours, and lantus given - Repeat BMP with resolution of high AG - Continue IVF COVID 06/03/2023 06/25/2023 Assessment & Plan (06/03/2023 5:45 AM HUMAN RESOURCE INTERN): Presenting with 1 week history of UT symptoms, cough and fevers. Found to be COVID positive on workup. CXR clear and with no oxygen requirements. - CTM - Airborne precautions. Starvation ketoacidosis w/ l actic acidosis secondary to intractable nausea and vomiting, complicated by hypomagnesemia and hypophosphotemia 02/23/2023 06/25/2023 Assessment & Plan (02/25/2023 10:38 AM CDT): P/w ongoing intractable nausea and vomiting recurrent since discharge one day prior. Known diagnsois of gastroparesis w/ prior flares of cyclical vomiting, follows w/ GI also due to HepC ([place]). Lipase 7.1, lactate 2.4. Hyperglycemic without gap. BG 7.31/57, UA w/ 3+ketones. S/p 2L LR and droperidol in ED, improved. On admission, requesting to eat. - on home reglan PRN (switched to TID before meals, cont at d/c) and mirtazapine, replete electrolytes - tolerating regular diet; denies abd pain - ODT zofran at discharge F/u GI outpt 03/12 Has immunity to COVID-19 virus 03/28/2021 06/25/2023 Overview (12/05/2021): Pfizer vaccine x2 spring 2020; booster 04/17/2021 Assessment & Plan (12/05/2021 2:07 PM CDT): Fully vaccinated, eligible for booster. Non-intractable vomiting 03/28/2021 Overview (03/28/2021): Added automatically from request for surgery [id number] Colon cancer screening 03/28/202104/19 Overview (03/28/2021): Added automatically from request for surgery [id number] Gastroparesis 02/23/2021 06/25/2023 Assessment & Plan (02/20/2023 3:59 PM CDT): Acute on chronic, moderate For nausea on zofran iv, and pepsid For pain: on iv dilaudid Q3 hours to be spaced to 4-6 hours tomorrow, risk of opioid explained, patient verbalized understanding stated that her pain was sever and this is the only frequency that can help lower the exacerbation time for the first day. Assessment & Plan (03/28/2021 8:27 AM CDT): Assessment & Plan (02/25/2021 6:05 PM CDT): Will order Reglan as QT improves Ordered EKG this am Monitor QTc Assessment & Plan (02/24/2021 4:53 PM CDT): Will order Reglan as QT improves Ordered EKG this am Monitor QTc Uncontrolled hypertension 02/23/2021 Assessment & Plan (08/08/2021 3:29 PM HUMAN RESOURCE INTERN): -BP today is 132/78 -Will continue same antihypertensive medications at this time. Assessment & Plan (02/25/2021 6:05 PM CDT): -BP up to 215/111 in ED, asymptomatic. Given hydralazine 10 IV in ED. -Hydralazine 25 PO TID currently ordered for persistent severe hypertension. Previously prescribed losartan 25, however not currently taking. Can restart losartan if needed and if Cr remains stable Assessment & Plan (02/24/2021 4:53 PM CDT): -BP up to 215/111 in ED, asymptomatic. Given hydralazine 10 IV in ED. -Hydralazine 25 PO TID currently ordered for persistent severe hypertension. Previously prescribed losartan 25, however not currently taking. Can restart losartan if needed and if Cr remains stable Assessment & Plan (02/23/2021 10:55 PM CDT): -BP up to 215/111 in ED, asymptomatic. Given hydralazine 10 IV in ED. -Hydralazine 25 PO TID currently ordered for persistent severe hypertension. Previously prescribed losartan 25, however not currently taking. Can restart losartan if needed and if Cr remains stable. Nausea vomiting and diarrhea 02/23/2021 03/23/2022 Assessment & Plan (02/25/2021 6:05 PM CDT): -Presenting with N/V/D x1d. Reports multiple similar prior episodes. Ddx includes viral gastroenteritis, cyclic vomiting syndrome, gastroparesis. -s/p dronabinol x3, Zofran, Reglan, IV opiates in ED. Of note, pt has mildly prolonged Qtc on EKG and would avoid further QT prolonging agents at this time. Will order Ativan 0.5 Q6H PRN for nausea, can also consider olanzapine if needed as has less risk for QTc prolongation or scopolamine patch. She does not meet [facility] criteria for use of palonosetron. -ordered stool pcr for Norovirus, C. Diff assay, and stool for ova and parasite Continue IVF Assessment & Plan (02/24/2021 4:56 PM CDT): -Presenting with N/V/D x1d. Reports multiple similar prior episodes. Ddx includes viral gastroenteritis, cyclic vomiting syndrome, gastroparesis. -s/p dronabinol x3, Zofran, Reglan, IV opiates in ED. Of note, pt has mildly prolonged Qtc on EKG and would avoid further QT prolonging agents at this time. Will order Ativan 0.5 Q6H PRN for nausea, can also consider olanzapine if needed as has less risk for QTc prolongation or scopolamine patch. She does not meet [facility] criteria for use of palonosetron. -ordered stool pcr for Norovirus, C. Diff assay, and stool for ova and parasite Continue IVF Assessment & Plan (02/23/2021 11:01 PM CDT): -Presenting with N/V/D x1d. Reports multiple similar prior episodes. Ddx includes viral gastroenteritis, cyclic vomiting syndrome, gastroparesis. -s/p dronabinol x3, Zofran, Reglan, IV opiates in ED. Of note, pt has mildly prolonged Qtc on EKG and would avoid further QT prolonging agents at this time. Will order Ativan 0.5 Q6H PRN for nausea, can also consider olanzapine if needed as has less risk for QTc prolongation or scopolamine patch. She does not meet [facility] criteria for use of palonosetron. -Check Cdiff, stool cx if continues to have diarrhea Acute cystitis without hematuria 12/22/2020 06/25/2023 Assessment & Plan (12/22/2020 2:21 PM CDT): Repeat UA, C & S in 2 weeks after completing Bactrim DS Work note for this week Acute otitis media 08/03/2020 Assessment & Plan (08/03/2020 3:05 PM HUMAN RESOURCE INTERN): Plan is to give Augmentin 875/125 b.i.d. times 10 days began Cortisporin. Will refer to ENT or urgently PICC as she is on immunosuppressive drugs. She will go to the emergency room if her situation worsens. Abdominal pain 04/17/2020 12/22/2020 Acute postoperative abdominal pain 04/05/2020 12/22/2020 Renal cell cancer, right 03/21/2020 Overview (03/21/2020): Non-functioning Diabetic foot ulcer 01/04/2020 06/25/20 23 Low back pain 11/15/2019 06/25/2023 Dehydration 11/15/2019 11/15/2019 Assessment & Plan (11/15/2019 11:12 AM CDT): Dehydration in setting of N/V
--- OUTSIDE RECORDS SUMMARY | 2024-12-11 12:08 | XMS_ITS | Clinical Summary ---
Author Organization [facility] Address [address] [place] [address] Care Team Providers Care Svp Group Director Name Role Phone Ramon Sylvester MD Primary Care Provider [phone] Ramon Sylvester MD Unavailable [phone] Source Comments [facility],non-owned Affiliates and Associated Physician Practices is amultiple site organization consisting of ambulatory clinics and hospital sitesin [place], [place], [place] and [place]. This disclosure is being madepursuant to the Care Everywhere program and may not contain all information available regarding this patient. Last updated 18.[facility] Allergies Active Allergy Reactions Criticality Noted Date [...] MCG/ACT nasal sprayIndicatio ns:Nasal Signs and Symptoms [place] 2 Sprays into each nostril once daily [...] age to complete this topic Insurance MEDICARE [facility] Care Teams Svp Group Director Relationship Specialty Start Date End Date Ramon Sylvester MD PCP - General Internal Medicine 10/19/16 Ramon Sylvester MD Internal Medicine 10/19/16
--- OUTSIDE RECORDS SUMMARY | 2024-12-11 12:08 | XMS_ITS | Clinical Summary ---
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 1 each 024 Active Breo Ellipta 100-25 mcg/dose diskus inhaler INHALE 1 PUFF BY MOUTH DAILY -RINSE MOUTH WITH WATER AFTER USE. DO NOT SWALLOW 60 each 3 024 Active predniSONE (DELTASONE) 5 mg tablet TAKE 1 TABLET BY MOUTH EVERY DAY 30 tablet 11 024 Active furosemide (LASIX) 20 mg tablet Take [...] BY MOUTH EVERY DAY 90 capsule 3 Active magnesium oxide (MAG-OX) 400 mg (241.3 [...] MOUTH THREE TIMES A DAY 270 tablet 024 2024 Discontinued carvediloL (COREG) 6.25 mg tablet Take 1 tablet (6.25 mg total) by mouth 2 (two) times a day with meals 60 tablet 024 2024 Discontinued timolol (TIMOPTIC) 0.5 % ophthalmic solution INSTILL ONE DROP INTO BOTH EYES TWICE DAILY 024 2024 Discontinued(D uplicate order) fluconazole (DIFLUCAN) 150 mg tablet TAKE 1 TABLET (150 MG TOTAL) BY MOUTH ONCE FOR 1 DOSE. 1 tablet 025 2024 Discontinued zolpidem (AMBIEN) 10 mg tablet [...] different from the original. Lab: [facility]- [phone] Standing Orders q-monthly FK, q3-HgbA1C. Exp. 06/16/25 Home Health: [facility] Home Care Local Pharmacy:[place] [id number] Specialty Pharmacy: [facility] Problem Noted Date Diagnosed Date Pancreatic insufficiency 07/11/2024 Localized edema 01/22/2024 Assessment & Plan (01/22/2024 4:11 PM CDT): Continue furosemide Abnormal urinalysis/ UTI 11/26/2023 Assessment & Plan (11/29/2023 12:12 AM CDT): Reports experiencing burning sensation during urination and pain during urination for more than 2-3 months and has had multiple visit at [place] [facility] in [place] with multiple abnormal urinalyses and recent cultures [...] home) Assessment & Plan (06/25/2023 3:24 PM MEAT CUTTER): Continue Ambien Assessment & Plan (02/24/2023 2:03 AM CDT): Cont home ambien PRN, reduce 10mg -> 5mg Liver lesion, right lobe 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 Change Lantus from hs to AM to decrease overnight lows. Assessment & Plan (11/05/2022 9:19 AM CDT): Need to minimize risk of hypoglycemia. Assessment & Plan (06/07/2022 5:23 PM MEAT CUTTER): Now improved, but still need to minimize [...] hypoglycemia Assessment & Plan (08/08/2021 3:28 PM MEAT CUTTER): -Affects post meal glucose readings -Closely monitor [...] 3:25 PM CDT): S/p right nephrectomy of [place] right kidney. POD1 N/V and Abd pain. [...] glucoses. Assessment & Plan (06/07/2022 5:24 PM MEAT CUTTER): This affects her ability to see a [...] Stable. Assessment & Plan (06/03/2023 5:34 AM MEAT CUTTER): Previous history of smoking. - Continue home inhalers and singulair. Essential hypertension 11/15/2019 Assessment & Plan (11/17/2024 3:59 PM CDT): BP at target Assessment & Plan (06/03/2023 5:41 AM MEAT CUTTER): Hold amlodipine for soft blood pressures. Assessment [...] 11/15/2019 Assessment & Plan (06/03/2023 5:43 AM MEAT CUTTER): Continue home statin. Assessment & Plan (02/24/2023 2:01 AM CDT): Cont home atorva 20mg. Assessment & Plan (11/05/2022 9:21 AM CDT): On atorvastatin 20mg. Optimize glycemic control. 10/2022- TG 173, HDL 66, LDL 66 Assessment & Plan (06/07/2022 5:29 PM MEAT CUTTER): Continue statin therapy (atorvastatin 20mg) and optimize [...] stable. 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 Assessment & Plan (06/07/2022 5:38 PM MEAT CUTTER): Hemoglobin A1c increased to 8.5% on 05/22/2022. [...] insulin. Assessment & Plan (08/08/2021 3:28 PM MEAT CUTTER): -Currently taking MDI and using Lynda -A1C [...] control. Assessment & Plan (06/07/2022 5:25 PM MEAT CUTTER): Managed by Dr. Bhatt. Needs optimal glycemic control. Assessment & Plan (03/23/2022 9:06 AM CDT): Managed by Dr. Bhatt. Needs optimal glycemic control Assessment & Plan (07/11/2020 5:49 PM MEAT CUTTER): Resolved following course of antiviral therapy. 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 I recommended not sharing a toothb [id number]|2024-12-11 10:41:00|2024-12-11 10:40:00|XMS_ITS|KATI SALVADOR|External Medical Summaries|[id number]|" Clinical Summary Created on: December 11, 2024 Juaquin Rey : 1975 Sex: Female Author Organization [facility] Address [address] [place] [address] Care Team Providers Care Supervisor Glycerin Name Role Phone Ramon Sylvester MD Primary Care Provider [phone] Burak Blue MD Unavailable [phone] Juana Jimenez RN Unavailable [phone] Sylwia García MD Unavailable [phone] Igor Yeager DO Unavailable Cristina Boyer RN Unavailable Cyn Fang NP Unavailable Allergies Active Allergy Reactions Criticality Noted Date [...] 3 tablets (3 mg total) by mouth 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 500 each 4 024 Active aspirin 81 mg enteric coated tablet Take 1 tablet (81 mg total) by mouth daily 90 tablet 3 Active sertraline (ZOLOFT) 50 mg tablet TAKE 1 TABLET BY MOUTH EVERY DAY 90 tablet 3 Active blood-glucose meter,continuous (FreeStyle Lynda 3 [place]) [facility] Use as directed to check blood sugar [...] BY MOUTH EVERY DAY 90 capsule 3 Active magnesium oxide (MAG-OX) 400 mg (241.3 [...] FOR 1 DOSE. 1 tablet 025 2024 Discontinued zolpidem (AMBIEN) 10 mg tablet [...] different from the original. Lab: [facility]- [phone] Standing Orders q-monthly FK, q3-HgbA1C. Exp. 06/16/25 Home Health: [facility] Home Care Local Pharmacy:[facility] [place] [id number] Specialty Pharmacy: [facility] Problem Noted Date Diagnosed Date Pancreatic insufficiency 07/11/2024 Localized edema 01/22/2024 Assessment & Plan (01/22/2024 4:11 PM CDT): Continue furosemide Abnormal urinalysis/ UTI 11/26/2023 Assessment & Plan (11/29/2023 12:12 AM CDT): Reports experiencing burning sensation during urination and pain during urination for more than 2-3 months and has had multiple visit at [place] [facility] in [place] with multiple abnormal urinalyses and recent cultures [...] home) Assessment & Plan (06/25/2023 3:24 PM MEAT CUTTER): Continue Ambien Assessment & Plan (02/24/2023 2:03 AM CDT): Cont home ambien PRN, reduce 10mg -> 5mg Liver lesion, right lobe 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 Change Lantus from hs to AM to decrease overnight lows. Assessment & Plan (11/05/2022 9:19 AM CDT): Need to minimize risk of hypoglycemia. Assessment & Plan (06/07/2022 5:23 PM MEAT CUTTER): Now improved, but still need to minimize [...] hypoglycemia Assessment & Plan (08/08/2021 3:28 PM MEAT CUTTER): -Affects post meal glucose readings -Closely monitor [...] 3:25 PM CDT): S/p right nephrectomy of [place] right kidney. POD1 N/V and Abd pain. [...] glucoses. Assessment & Plan (06/07/2022 5:24 PM MEAT CUTTER): This affects her ability to see a [...] Stable. Assessment & Plan (06/03/2023 5:34 AM MEAT CUTTER): Previous history of smoking. - Continue home inhalers and singulair. Essential hypertension 11/15/2019 Assessment & Plan (11/17/2024 3:59 PM CDT): BP at target Assessment & Plan (06/03/2023 5:41 AM MEAT CUTTER): Hold amlodipine for soft blood pressures. Assessment [...] 11/15/2019 Assessment & Plan (06/03/2023 5:43 AM MEAT CUTTER): Continue home statin. Assessment & Plan (02/24/2023 2:01 AM CDT): Cont home atorva 20mg. Assessment & Plan (11/05/2022 9:21 AM CDT): On atorvastatin 20mg. Optimize glycemic control. 10/2022- TG 173, HDL 66, LDL 66 Assessment & Plan (06/07/2022 5:29 PM MEAT CUTTER): Continue statin therapy (atorvastatin 20mg) and optimize [...] stable. 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 Assessment & Plan (06/07/2022 5:38 PM MEAT CUTTER): Hemoglobin A1c increased to 8.5% on 05/22/2022. [...] insulin. Assessment & Plan (08/08/2021 3:28 PM MEAT CUTTER): -Currently taking MDI and using Lynda -A1C [...] control. Assessment & Plan (06/07/2022 5:25 PM MEAT CUTTER): Managed by Dr. Bhatt. Needs optimal glycemic control. Assessment & Plan (03/23/2022 9:06 AM CDT): Managed by Dr. Bhatt. Needs optimal glycemic control Assessment & Plan (07/11/2020 5:49 PM MEAT CUTTER): Resolved following course of antiviral therapy. 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 I recommended not sharing a toothb
[2024-12-11 12:31] LABS: Add Urine Microscopic? YES; Appearance Urine Cloudy (Clear); Bacteria Urine None Seen /hpf; Bilirubin Urine 1+ (Negative); Blood Urine 2+ (Negative); Color Urine Dark Yellow (Yellow); Glucose Urine UA 3+ mg/dL (Negative); Ketones Urine 1+ mg/dL (Negative); Leukocyte Esterase Ur 2+ LEU/UL (Negative); Nitrate Urine Positive (Negative); Non Pathogenic Casts 0-2; Protein Urine 2+ mg/dL (Negative); Specific Grav Ur 1.024 (1.001-1.035); Squamous Epithelial Cell Urine None Seen /hpf (Few); WBC Urine >100 /hpf (0-3); pH Urine 6.5 (5.0-9.0)
[2024-12-11 12:46] LABS: Need Manual Microscopic No
[2024-12-11] MEDS: ONDANSETRON HCL ODT 4 MG TABLET PO (12:56)
--- NOTE | 2024-12-11 13:00 | ED.GENADULT ---
HPI - General Adult General Chief complaint: Urogenital-Female Stated complaint: I'm having the worst UTI Time Seen by Provider: 12/11/24 11:54 History of Present Illness HPI narrative: Patient is a 49-year-old female who presents ER burning urination. Ongoing for 2 days. Mild suprapubic discomfort. She does have urinary frequency as well as fever. She reports some low back pain vomiting. No GI symptoms. No chest discomfort. She tried taking some azithromycin home without improvement. Related Data Home Medications Medication Instructions Recorded Confirmed Last Taken Type aspirin 81 mg tablet,delayed 81 mg PO DAILY 08/30/20 08/08/24 08/06/24 09:00 History release (Adult Aspirin Regimen) 81 mg azathioprine 50 mg tablet 50 mg PO DAILY 08/30/20 08/08/24 08/06/24 09:00 History 50 mg omeprazole 20 mg capsule,delayed 20 mg PO DAILY 08/30/20 08/08/24 08/06/24 12:00 History release 20 mg zolpidem 10 mg tablet (Ambien) 10 mg PO HS 08/30/20 08/08/24 08/06/24 23:00 History 10 mg amlodipine 5 mg tablet 5 mg PO BID 12/22/23 08/08/24 04/13/24 History atorvastatin 20 mg tablet 20 mg PO DAILY 12/22/23 08/08/24 08/06/24 09:00 History 20 mg biotin 5 mg tablet 5 mg PO HS 12/22/23 08/08/24 08/06/24 21:00 History 5 mg cholecalciferol (vitamin D3) 50 50 mcg PO DAILY 12/22/23 08/08/24 08/06/24 12:00 History mcg (2,000 unit) tablet (Vitamin 50 mcg D3) cyanocobalamin (vitamin B-12) 500 1,000 mcg PO DAILY 12/22/23 08/08/24 08/06/24 09:00 History mcg tablet 1,000 mcg epinephrine 0.3 mg/0.3 mL 0.3 mg IM Q5-15M PRN Anaphylaxis 12/22/23 08/08/24 Unknown History injection, auto-injector flash glucose sensor (FreeStyle 12/22/23 08/08/24 Unknown History Lynda 14 Day Sensor kit) fluticasone furoate 100 1 inh inhalation DAILY 12/22/23 08/08/24 08/06/24 09:00 History mcg-vilanterol 25 mcg/dose 1 inh inhalation powder (Breo Ellipta) gabapentin 100 mg capsule 100 mg PO TID 12/22/23 08/08/24 08/06/24 21:00 History 100 mg insulin glargine U-300 conc 300 24 unit subcut DAILY 12/22/23 08/08/24 08/07/24 09:00 History unit/mL (1.5 mL) subcutaneous pen 24 unit (Mioofeliakeenan SoloStar U-300 Insulin) montelukast 10 mg tablet 10 mg PO DAILY 12/22/23 08/08/24 08/06/24 09:00 History 10 mg pen needle, diabetic 31 gauge x 12/22/23 08/08/24 Unknown History 10/11 (BD Ultra-Fine Mini Pen Needle) sertraline 50 mg tablet 50 mg PO DAILY 12/22/23 08/08/24 08/06/24 20:00 History 50 mg tramadol 50 mg tablet 100 mg PO Q6H PRN Pain 12/22/23 08/08/24 08/06/24 20:00 History 100 mg alprazolam 0.5 mg tablet 0.5 mg PO TID PRN Anxiety 01/10/24 08/08/24 08/06/24 14:00 History 0.5 mg carvedilol 6.25 mg tablet (Coreg) 6.25 mg PO DAILY 01/10/24 08/08/24 08/06/24 09:00 History 6.25 mg divalproex 500 mg tablet,delayed 500 mg PO TID 01/10/24 08/08/24 08/06/24 09:00 History release 500 mg prednisone 5 mg tablet 5 mg PO DAILY 01/10/24 08/08/24 08/06/24 09:00 History 5 mg tacrolimus 1 mg tablet,extended 3 mg PO DAILY 01/10/24 08/08/24 08/06/24 08:00 History release 24 hr (Envarsus XR) 3 mg timolol maleate 0.5 % eye drops 2 drp EACH EYE BID 01/10/24 08/08/24 08/06/24 21:00 History 2 drp fluticasone propionate 50 2 spray intranasal BID PRN RHINITIS 09/08/08/24 08/06/24 09:00 History mcg/actuation nasal 1 spray spray,suspension glucagon 3 mg/actuation nasal 3 mg intranasal PRN PRN 04/13/24 08/08/24 08/01/24 12:00 History spray (Baqsimi) Hypoglycemia 3 mg insulin lispro 100 unit/mL See Rx Instructions .Route .COMPLEX 04/13/24 08/08/24 08/07/24 21:00 History subcutaneous half-unit pen furosemide 20 mg tablet (Lasix) 20 mg PO DAILY 08/08/24 08/08/24 08/06/24 09:00 History 20 mg Allergies Allergy/AdvReac Type Severity Reaction Status Date / Time cyclobenzaprine Allergy Unknown Hives / Verified 12/11/24 10:39 Red Face tetracycline Allergy Unknown Nausea and Verified 12/11/24 10:39 Vomiting acetaminophen (From Tylenol) Allergy Nausea and Verified 12/11/24 10:39 Vomiting metformin AdvReac Intermediate Vomiting Verified 12/11/24 10:39 morphine AdvReac Itching Verified 12/11/24 10:39 Review of Systems Review of Systems: All systems reviewed & are unremarkable except as noted in HPI and below Constitutional: Constitutional: Reports no additional constitutional complaints Cardiovascular: Cardiovascular: Reports no additional cardiovascular complaints Respiratory: Respiratory: Reports no additional respiratory complaints Gastrointestinal: Gastrointestinal: Reports no additional gastrointestinal complaints Genitourinary: Genitourinary: Reports no additional female genitourinary complaints [facility] Past Medical History Medical History Post-menopausal Pancreatic insufficiency Hypertension MRSA infection Chronic obstructive pulmonary disease Diabetic nephropathy Type 1 diabetes mellitus Diabetic gastroparesis Surgical History Surgical History History of right nephrectomy Secondary to suspicious mass which turned out to be noncancerous. History of benign breast biopsy History of hysterectomy History of appendectomy (02/2019) History of kidney transplant (02/2019) [place] Family History Family History (Updated 08/08/24 @ 14:56 by Amy Hyatt RN) Grandparent Diabetes mellitus Emphysema of lung Mother and grandparent Grandparent Hypertension Mother Lupus Social History Social History Social History: Surrogate medical decision maker: Aleja Mcghee, mother. Code status: Full code. Smoking packs per day: 1 Smoking cigarettes per day: 20.0 Years smoked: 10 Smoking pack-years: 10.00 Smoking status: Former smoker Tobacco type: cigarettes Second hand tobacco smoke exposure: No Smoking end date: 10/27/18 Alcohol intake: former Substance use: never Substance use type: marijuana Do You Feel Safe in your Home?: Yes Lack of Transportation: No Lack of Food: Never True Current Housing: I Have Housing Concerned About Future Housing: No Difficulty Paying Gas/Electric Bills: No Difficulty Paying for Meds: No Currently Unemployed: No Education: High School Diploma/GED Difficulty w/ Childcare or Family Care: No Spiritual care concerns: No Exam Narrative: GENERAL: Well-appearing, well-nourished, and in no acute distress. HEAD: Normocephalic, atraumatic. ENT: Mucous membranes moist. CHEST: Clear to auscultation. No respiratory distress. HEART: Regular rate and rhythm. Normal peripheral pulses. ABDOMEN: Soft, nontender, nondistended, no CVA tenderness. EXTREMITIES: Normal range of motion. No edema. NEURO: Alert and oriented x3. PSYCH: Normal mood and affect. Course Course Emergency Course: Discharge home with oral antibiotics and antiemetics. Vital Signs Vital signs: Vital Signs Temperature 97.3 F L 12/11/24 10:39 Pulse Rate 78 12/11/24 10:39 Respiratory Rate 12/11/24 10:39 Blood Pressure 144/72 H 12/11/24 10:39 Pulse Oximetry 100 12/11/24 10:39 Oxygen Delivery Room Air 12/11/24 10:39 Temperature 97.3 F L 12/11/24 10:39 Pulse Rate 78 12/11/24 10:39 Respiratory Rate 16 12/11/24 10:39 Blood Pressure 144/72 H 12/11/24 10:39 Pulse Oximetry 100 12/11/24 10:39 Oxygen Delivery Room Air 12/11/24 10:39 Medical Decision Making Vital Signs Vital Signs: Vital Signs Temperature 97.3 F L 12/11/24 10:39 Pulse Rate 78 12/11/24 10:39 Respiratory Rate 16 12/11/24 10:39 Blood Pressure 144/72 H 12/11/24 10:39 Pulse Oximetry 100 12/11/24 10:39 Oxygen Delivery Room Air 12/11/24 10:39 Temperature 97.3 F L 12/11/24 10:39 Pulse Rate 78 12/11/24 10:39 Respiratory Rate 16 12/11/24 10:39 Blood Pressure 144/72 H 12/11/24 10:39 Pulse Oximetry 100 12/11/24 10:39 Oxygen Delivery Room Air 12/11/24 10:39 Lab Data Labs: Lab Results 12/11/24 12/11/24 Range/Units 11:50 11:54 Urine Color Dark yellow (Yellow) Urine Appearance Cloudy H (Clear) Urine pH 6.5 (5.0-9.0) Ur Specific [place] 1.024 (1.001-1.035) Urine Protein 2+ H (Negative) mg/dL Urine Glucose (UA) 3+ H (Negative) mg/dL Urine Ketones 1+ H (Negative) mg/dL Ur Blood (Man) 2+ H (Negative) Urine Nitrate Positive H (Negative) Urine Bilirubin 1+ H (Negative) Urine Urobilinogen 1.0 (<2.0) mg/dL Add Ur Microanalysis No Leukocyte Esterase Rfl 2+ H (Negative) SACHA/UL Urine RBC 11-20 H (0-2) /hpf Urine WBC >100 H (0-3) /hpf Ur Squamous Epith Cells None seen (Few) /hpf Urine Bacteria None seen /hpf Urine Casts 0-2 POC Urine HCG, Qual Negative (Negative) Discharge Plan Discharge Clinical Impression: UTI (urinary tract infection) Patient Disposition: Home Condition: Stable Instructions: Antibiotic Form, Urinary Tract Infection in Women (ED) Additional Instructions: You should return to the emergency department if you develop severe nausea and vomiting and are unable to keep liquids down, if you develop severe back/flank or stomach pain, or if your symptoms are not clearly improving at home. Patient Language: Frisian Prescriptions: New sulfamethoxazole-trimethoprim [Bactrim DS] 800-160 mg tablet 1 tablet PO Q12H Qty: 20 0RF ondansetron 4 mg tablet,disintegrating 4 mg PO Q6H PRN (Reason: nausea and vomiting) Qty: 10 0RF No Action zolpidem [Ambien] 10 mg tablet 10 mg PO HS azathioprine 50 mg tablet 50 mg PO DAILY aspirin [Adult Aspirin Regimen] 81 mg tablet,delayed release (DR/EC) 81 mg PO DAILY omeprazole 20 mg capsule,delayed release(DR/EC) 20 mg PO DAILY atorvastatin 20 mg Tablet 20 mg PO DAILY amlodipine 5 mg Tablet 5 mg PO BID cyanocobalamin (vitamin B-12) 500 mcg Tablet 1,000 mcg PO DAILY montelukast 10 mg Tablet 10 mg PO DAILY gabapentin 100 mg Capsule 100 mg PO TID epinephrine 0.3 mg/0.3 mL Auto-Injector 0.3 mg IM Q5-15M PRN (Reason: Anaphylaxis) Patient Comments: Hasn't taken in years Rx Instructions: do not exceed 3 doses per episode sertraline 50 mg Tablet 50 mg PO DAILY (DME) pen needle, diabetic [BD Ultra-Fine Mini Pen Needle] 31 gauge x 3/16 Needle MISCELLANEOUS biotin 5 mg Tablet 5 mg PO HS fluticasone furoate-vilanterol [Breo Ellipta] 100-25 mcg/dose Blister With Device 1 inh INHALATION DAILY Rx Instructions: INHALE 1 PUFF BY MOUTH DAILY- RINSE MOUTH WITH WATER AFTER USE. DO NOT SWALLOW (DME) FreeStyle Lynda 14 Day Sensor Kit MISCELLANEOUS tramadol 50 mg Tablet 100 mg PO Q6H PRN (Reason: Pain) cholecalciferol (vitamin D3) [Vitamin D3] 50 mcg (2,000 unit) Tablet 50 mcg PO DAILY insulin glargine U-300 conc [Toujeo SoloStar U-300 Insulin] 300 unit/mL (1.5 mL) Insulin Pen 24 unit SUBCUT DAILY Rx Instructions: INJECT 28 UNITS UNDER SKIN ONCE DAILY. MAX OF 30 UNITS PER DAY prednisone 5 mg tablet 5 mg PO DAILY divalproex 500 mg tablet,delayed release (DR/EC) 500 mg PO TID alprazolam 0.5 mg tablet 0.5 mg PO TID PRN (Reason: Anxiety) timolol maleate 0.5 % drops 2 drp EACH EYE BID Envarsus XR 1 mg tablet extended release 24 hr 3 mg PO DAILY Rx Instructions: TAKE 3 1MG TABLETS BY MOUTH IN THE DATABASE REPORTING CONSULTANT BEFORE BREAKFAST. carvedilol [Coreg] 6.25 mg tablet 6.25 mg PO DAILY Baqsimi 3 mg/actuation spray,non-aerosol 3 mg INTRANASAL PRN PRN (Reason: Hypoglycemia) fluticasone propionate 50 mcg/actuation [place],Suspension 2 spray INTRANASAL BID PRN (Reason: RHINITIS) Rx Instructions: administer 2 sprays into each nostril 2 times a day as needed for rhinits insulin lispro 100 unit/mL insulin pen, half-unit See Rx Instructions .ROUTE .COMPLEX Rx Instructions: 1:13 carb ratio with breakfast, 1:15 carb ratio with lunch and 1:13 carb ratio with supper plus sliding scale 1 unit for every 50 points greater than 150; MDD is 30 units furosemide [Lasix] 20 mg tablet 20 mg PO DAILY sucralfate 100 mg/mL Suspension 1,000 mg PO ACHS Qty: 15 0RF metronidazole 500 mg Tablet 500 mg PO Q8HR Qty: 6 0RF sulfamethoxazole-trimethoprim 800-160 mg Tablet 1 tab PO Q12HR Qty: 4 0RF oxycodone 5 mg tablet 5 mg PO Q8H PRN (Reason: pain) Qty: 7 0RF Zenpep 60,000-189,600- 252,600 unit capsule,delayed release(DR/EC) 1 cap PO .ac Qty: 300 4RF Rx Instructions: administer with meals and/or snacks mirtazapine 15 mg tablet See Rx Instructions .ROUTE .COMPLEX Qty: 90 1RF Dose Instruction: TAKE 1 TABLET BY MOUTH AT BEDTIME. Rx Instructions: TAKE 1 TABLET BY MOUTH AT BEDTIME. Follow-up/Referrals: Nga,Ramon Cedeno MD [Primary Care Provider] -
== END 2024-12-11 13:16 | disposition home or self-care (01) ==
PROVIDERS: Emergency Medicine; Emergency Provider Emergency Medicine; PCP Internal Medicine
DX: N39.0 Urinary tract infection, site not specified (principal); Z79.4 Long term (current) use of insulin; I10 Essential (primary) hypertension; J44.9 Chronic obstructive pulmonary disease, unspecified; E10.21 Type 1 diabetes mellitus with diabetic nephropathy; Z87.891 Personal history of nicotine dependence
CPT/HCPCS: 81001; 81025; 87077; 87086; 87186; 99283; A9270

== ENCOUNTER 2024-12-13 11:54 | Inpatient (IN) | payer MEDICARE, MEDICAID, SELFPAY ==
--- OUTSIDE RECORDS SUMMARY | 2024-12-13 11:57 | XMS_ITS | Referral Summary ---
Author Organization [facility] Address [address] [place] [address] Care Team Providers Care Boat Designer Name Role Phone Ramon Sylvester MD Primary Care Provider Burak Blue MD Unavailable [phone] Juana Jimenez RN Unavailable Sylwia García MD Unavailable [phone] Igor Yeager DO Unavailable Cristina Boyer RN Unavailable Cyn Fang NP Unavailable [phone] Encounters Date Type Department Care Team Description 12/04/2024 3:00 PM CDT Office Visit [facility] Endocrinology Metabolism and Lipid [address] 13th [place] [address] [place] [address] Gavi Cervantes NP Type 1 diabetes mellitus with other specified complication (HCC) (Primary Dx); long-term current use of insulin (HCC); Hyperlipidemia, unspecified hyperlipidemia type 11/17/2024 3:00 PM CDT Office Visit [facility] [address] [place] [address] Ramon Sylvester MD Visit for screening mammogram (Primary Dx); 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, unspecified laterality (HCC); Renal transplant recipient; Type 1 diabetes mellitus with other specified complication (HCC); Essential hypertension; Chronic obstructive pulmonary disease, unspecified COPD type ([facility]) 11/05/2024 Results Follow-Up [facility] [address] [place] [address] Ramon Sylvester MD Magnesium 11/03/2024 Orders Only [facility] Nephrology [address] 5th [place] [address] [place] [address] Jose Rafael Ramos MD 09/25/2024 Orders Only [facility] Endocrinology Metabolism and Lipid [address] 13th [place] [address] [place] [address] Drew Godoy MD 09/25/2024 Telephone [facility] Endocrinology Metabolism and Lipid [address] 13th [place] [address] [place] [address] Patricia Ravi, cook pie Freesetyle lynda 3 plus refills from Last [...] 3 tablets (3 mg total) by mouth glass cylinder flanger before breakfast DO NOT TAKE ON 11/28, [...] 3 Active blood-glucose meter,continuous (FreeStyle Lynda 3 [place]) [facility] Use as directed to check blood sugar [...] different from the original. Lab: [facility]- [phone] Standing Orders q-monthly FK, q3-HgbA1C. Exp. 06/16/25 Home Health: [facility] Home Care Local Pharmacy:[place] [address] [facility] Problem Noted Date Diagnosed Date Pancreatic insufficiency 07/11/2024 Localized edema 01/22/2024 Assessment & Plan (01/22/2024 4:11 PM CDT): Continue furosemide Abnormal urinalysis/ UTI 11/26/2023 Assessment & Plan (11/29/2023 12:12 AM CDT): Reports experiencing burning sensation during urination and pain during urination for more than 2-3 months and has had multiple visit at [place] [facility] in [place] with multiple abnormal urinalyses and recent cultures [...] home) Assessment & Plan (06/25/2023 3:24 PM EDGER SAW OPERATOR): Continue Ambien Assessment & Plan (02/24/2023 2:03 AM CDT): Cont home ambien PRN, reduce 10mg -> 5mg Liver lesion, right lobe 10/06/2022 long-term current 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 Change Lantus from hs to AM to decrease overnight lows. Assessment & Plan (11/05/2022 9:19 AM CDT): Need to minimize risk of hypoglycemia. Assessment & Plan (06/07/2022 5:23 PM EDGER SAW OPERATOR): Now improved, but still need to minimize [...] hypoglycemia Assessment & Plan (08/08/2021 3:28 PM EDGER SAW OPERATOR): -Affects post meal glucose readings -Closely monitor [...] 3:25 PM CDT): S/p right nephrectomy of osage right kidney. POD1 N/V and Abd pain. [...] glucoses. Assessment & Plan (06/07/2022 5:24 PM EDGER SAW OPERATOR): This affects her ability to see a [...] Stable. Assessment & Plan (06/03/2023 5:34 AM EDGER SAW OPERATOR): Previous history of smoking. - Continue home inhalers and singulair. Essential hypertension 11/15/2019 Assessment & Plan (11/17/2024 3:59 PM CDT): BP at target Assessment & Plan (06/03/2023 5:41 AM EDGER SAW OPERATOR): Hold amlodipine for soft blood pressures. Assessment [...] 11/15/2019 Assessment & Plan (06/03/2023 5:43 AM EDGER SAW OPERATOR): Continue home statin. Assessment & Plan (02/24/2023 2:01 AM CDT): Cont home atorva 20mg. Assessment & Plan (11/05/2022 9:21 AM CDT): On atorvastatin 20mg. Optimize glycemic control. 10/2022- TG 173, HDL 66, LDL 66 Assessment & Plan (06/07/2022 5:29 PM EDGER SAW OPERATOR): Continue statin therapy (atorvastatin 20mg) and optimize [...] stable. 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 Assessment & Plan (06/07/2022 5:38 PM EDGER SAW OPERATOR): Hemoglobin A1c increased to 8.5% on 05/22/2022. [...] insulin. Assessment & Plan (08/08/2021 3:28 PM EDGER SAW OPERATOR): -Currently taking MDI and using Lynda -A1C [...] control. Assessment & Plan (06/07/2022 5:25 PM EDGER SAW OPERATOR): Managed by Dr. Bhatt. Needs optimal glycemic control. Assessment & Plan (03/23/2022 9:06 AM CDT): Managed by Dr. Bhatt. Needs optimal glycemic control Assessment & Plan (07/11/2020 5:49 PM EDGER SAW OPERATOR): Resolved following course of antiviral therapy. 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 Assessment & Plan (06/07/2022 5:25 PM EDGER SAW OPERATOR): Taking daily immunosuppressants which complicate glycemic management. Assessment & Plan (08/06/2021 3:09 PM EDGER SAW OPERATOR): -terminologist use of immunosuppressants and steroids complicates diabetes [...] has. I encouraged her to see an packing machine inspector again just to make sure that she does or does not need ongoing follow-up Assessment & Plan (08/06/2021 3:07 PM EDGER SAW OPERATOR): -Patient is legally blind -CGM allows for increase in safety as there is audile alarm for high and low blood sugars Resolved Problems Problem Noted Date Diagnosed Date Resolved Date Ketosis 06/03/2023 06/25/2023 Assessment & Plan (06/03/2023 5:41 AM EDGER SAW OPERATOR): Patient presenting with nausea and vomiting that [...] 06/25/2023 Assessment & Plan (06/03/2023 5:45 AM EDGER SAW OPERATOR): Presenting with 1 week history of UT [...] (03/28/2021): Added automatically from request for surgery [id number] Colon cancer screening 03/28/202104/19 Overview (03/28/2021): Added automatically from request for surgery [id number] Gastroparesis 02/23/2021 06/25/2023 Assessment & Plan (02/20/2023 [...] 02/23/2021 Assessment & Plan (08/08/2021 3:29 PM EDGER SAW OPERATOR): -BP today is 132/78 -Will continue same [...] or scopolamine patch. She does not meet [facility] criteria for use of palonosetron. -ordered stool [...] meet [facility] criteria for use of palonosetron. -Check Cdiff, stool cx if continues to have diarrhea Acute cystitis without hematuria 12/22/2020 06/25/2023 Assessment & Plan (12/22/2020 2:21 PM CDT): Repeat UA, C & S in 2 weeks after completing Bactrim DS Work note for this week Acute otitis media 08/03/2020 Assessment & Plan (08/03/2020 3:05 PM EDGER SAW OPERATOR): Plan is to give Augmentin 875/125 b.i.d. [...] 11:12 AM CDT): Dehydration in setting of N/V. -Cont IVFs Nausea vomiting and diarrhea 05/13/2019 12/22/2020 Assessment & Plan (11/15/2019 12:00 PM CDT): 44 y/o with PMH including type 1 DM and ESRD s/p DDKT presents with c/o N/V and low back/abdominal pain x1 day. No relief with antiemetics and fluids in ED. Afebrile. No WBC. Lipase negative. LFTs negative. COVID testing negative. No evidence of DKA. Has had previous h/o similar symptoms requiring hospitalization in 09/17 thought to be viral gastroenteritis. Considerations today include gastroenteritis, infectious etiology (CXR pending, Ua negative), pancreatitis (although lipase normal), cholecystitis (although LFTs normal), ? Gastroparesis, ? SBO -Admit for further treatment of symptoms. Labs c/w dehydration -IVFs and pain meds. Hold zofran, haldol for now as qtc 496. Start ativan for nausea. -F/U UA and CXR -If no improvement in symptoms, consider CT of abdomen/pelvis -Repeat BMP and Mg with AML Assessment & Plan (05/14/2019 11:51 AM CDT): Possibly related to viral gastroenteritis vs urinary infection vs other intra-abdominal infection. She has normal wbc but is on immunosuppression. - narrowed to ceftriaxone for possible E. Coli UTI. Will discharge on cipro - cont supportive care Assessment & Plan (05/13/2019 1:08 AM CDT): - possibly related to viral gastroenteritis vs urinary infection vs other intra-abdominal infection. She has normal wbc but is on immunosuppression. - will place on cefepime and flagyl - check stool cx and c diff. Renal note recommended stool cmv. Clarify in AM if meant blood pcr? vs other. - imaging as shown above. f/u urine and blood cultures Fibromyalgia 11/17/2018 12/22/2020 Pre-transplant evaluation fo r kidney and pancreas transplant 04/21/2018 03/21/2020 Pain in shoulder 08/16/2016 12/22/2020 Pre-transplant evaluation fo r end stage renal disease 04/28/2019 Immunizations Immunization Administration Dates Next Due COVID-19 mRNA (Spare to Share) 0.3 m L (30 mcg) vaccine (12 years and up) 04/05/2024 Hep B Vaccine 10/03/2018, 9,06/06/2018,06/06,05/02/2018,05/02/2018,04/23/2018 ,04/23/2018 Influenza, Quadrivalent, Spl it, Intramuscular 07/08/2015,07/08/2015 Influenza, Quadrivalent, Spl it, Preservative Free, Intramuscular 06/24/2020 Influenza, Trivalent, Cell Culture-based MDCK, Preservative Free, Antibiotic Free, Intramuscular 04/05/2024 Influenza, Trivalent, High D ose, Split, Preservative Free, Intramuscular 07/06/2015,07/06/2015 Pfizer SARS-CoV-2 Monovalent Vaccination (12+ Yrs) PURPLE 11/20/2020,11/20/2020,10/27/2020,10/27 Pfizer SARS-CoV-2 Monovalent Vaccination (5-11 Yrs) 04/17/2021 Pneumococcal Conjugate PCV 13 03/06/2019 ,03/06/2019,07/08/2015,07/08,07/06/2015,07/06/2015 ZOSTER Recombinant 08/21/2024 Social History Tobacco Use Types Packs/Day Years Used Date Smoking Tobacco: Former Cigarettes 2 008 - 10/2017 Smokeless Tobacco: Never Tobacco Cessation:Counseling Given: No Alcohol Use Standard Drinks/Week Comments No 0 (1 standard drink = 0.6 oz pur e alcohol) [facility] Utilities Answer Date Recorded In the past 12 months has th e electric, gas, oil, or water company threatened to shut off services in your home? Patient unable to answer 11/28/2023 Social Connection and Isolation Panel [NHANES] A nswer Date Recorded In a typical week, how many times do you talk on the phone with family, friends, or neighbors? Patient unable to answer 11/28/2023 How often do you get togethe r with friends or relatives? Patient unable to answer 11/28/2023 How often do you attend chur ch or catholic services? Patient unable to answer 11/28/2023 Do you belong to any clubs o r organizations such as jain groups, unions, fraternal or athletic groups, or school groups? Patient unable to answer 11/28/2023 How often do you attend meet ings of the clubs or organizations you belong to? Patient unable to answer 11/28/2023 Are you , , di vorced, , never , or living with a partner? Patient unable to answer 11/28/2023 AUDIT-C Answer Date Recorded Q1: How often do you have a drink containing alcohol? Never 05/07/2022 Q2: How many drinks containi ng alcohol do you have on a typical day when you are drinking? Patient does not drink Q3: How often do you have si x or more drinks on one occasion? Never 05/07/2022 Overall Financial Resource Strain (CARDIA) Answe r Date Recorded How hard is it for you to pa y for the very basics like food, housing, medical care, and heating? Patient unable to answer 11/28/2023 Hunger Vital Sign Answer Date Recorded Within the past 12 months, y ou worried that your food would run out before you got the money to buy more. Patient unable to answer 11/28/2023 Within the past 12 months, t he food you bought just didn't last and you didn't have money to get more. Patient unable to answer 11/28/2023 PRAPARE - Transportation Answer Date Re corded In the past 12 months, has l ack of transportation kept you from medical appointments or from getting medications? Patient unable to answer 11/28/2023 In the past 12 months, has l ack of transportation kept you from meetings, work, or from getting things needed for daily living? Patient unable to answer 11/28/2023 Housing Stability Vital Sign Answer Dwight e Recorded In the last 12 months, was t here a time when you were not able to pay the mortgage or rent on time? Patient unable to answer 11/28/2023 In the last 12 months, how m any places have you lived? 0 11/28/2023 In the last 12 months, was t here a time when you did not have a steady place to sleep or slept in a [place] [facility] [place] (including now)? Patient unable to answer 11/28/2023 Personal Safety Answer Date Recorded Have you ever been in or are you currently in a harmful physical or emotional relationship or is someone making you feel afraid or unsafe? 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 on file Not on file Not on file Last Filed Vital Signs Vital Sign Reading Time Taken Comments Blood Pressure 125/82 12/04/2024 2:56 PM CDT Pulse 77 12/04/2024 2:56 PM CDT Temperature 36.9 C (98.4 F) 12/04/2024 2:56 PM CDT Respiratory Rate 18 12/20/2023 2:32 PM CDT Oxygen Saturation 97% 12/20/2023 2:32 PM CDT Inhaled Oxygen Concentration - - Weight 69.9 kg (154 lb 3.2 oz) 12/04/2024 2:56 P M CDT Height 157.5 cm (5' 2 ) 12/04/2024 2:56 PM CDT Body Mass Index 28.2 12/04/2024 2:56 PM CDT Plan of Treatment Scheduled Procedures Name Priority Associated Diagnoses Date/Ti me TRANSPLANT KIDNEY ESRD (end stage renal disease) (HCC) Medical Devices Explanted Type Area Visual Associate Device Identifier Shelf Expiration Date Model / Serial / Lot Circon-Surgit ek [id number] 6fr 20cm 100cm 1 Step Insert Push Catheter Coleridge Suture - [id number] Implanted:Qty : 1 on 03/09/2019 by Tommie Cortes MD at [facility] Explanted:Qty : 1 on 04/06/2019 by Ted Farrell NP Stent Right: Ureter Circon-Surgitek [id number] 02/14/2023 [id number] / / [id number] Description:Transplanted Ure ter Procedures Procedure Name Priority Date/Time Associated Diagnosis Comments POCT GLUCOSE 23446 Routine 12/04/2024 3: 03 PM CDT Type 1 diabetes mellitus with other specified complication (HCC) POCT HEMOGLOBIN A1C Routine 12/04/2024 3 :03 PM CDT Type 1 diabetes mellitus with other specified complication (HCC) MAGNESIUM Routine 11/03/2024 8:13 AM CDT Abnormal blood level of magnesium TACROLIMUS, HIGHLY SENSITIVE, LC/MS/MS Routine 11/03/2024 8:12 AM CDT RENAL FUNCTION PANEL Routine 11/03/2024 8:12 AM CDT CBC WITH AUTO DIFFERENTIAL Routine 11/03/2024 8:12 AM CDT COPY(IES) SENT TO: Routine 11/03/2024 8: 12 AM CDT ALBUMIN CREATININE RATIO, URINE Routine 07/14/2024 8:26 AM EDGER SAW OPERATOR Type 1 diabetes mellitus with other specified complication (HCC) LIPID PANEL Routine 05/26/2024 DIABETIC EYE EXAM Routine 10/28/2023 2:2 7 PM CDT COLONOSCOPY 05/08/2022 12:35 PM CDT TSH Routine 10/25/2020 2:58 PM CDT Anxiety HEPATITIS C RNA, QUANTITATIVE, PCR STAT 03/02/2020 4:44 PM CDT from Last 3 Months or Most Recently Relevant to Health Maintenance Results * POCT glucose (12/04/2024 3:03 PM CDT) Pathologist [facility] Glucose Blood, POC 253 Normal Fasting 70 - 100, Random <200 mg/dL Blood 12/04/2024 3:03 PM CDT Gavi Cervantes KICK PLATE INSTALLER POINT OF CARE TEST ORDERA BLES Final Result * (ABNORMAL) POCT hemoglobin A1c (12/04/2024 3:03 PM CDT) Pathologist [facility] Hemoglobin A1C, POC 9.4(A) 4.0 - 5.6 % Blood 12/04/2024 3:03 PM CDT Gavi Cervantes KICK PLATE INSTALLER POINT OF CARE TEST ORDERA BLES Final Result * Magnesium (11/03/2024 8:13 AM CDT) [facility] Magnesium 2.0 1.5 - 2.5 mg/dL [facility] Blood 11/03/2024 8:13 AM CDT 11/03/2024 8:14 AM CDT Narrative [facility] - 11/04/2024 3:56 AM CDT FASTING:YES FASTING: YES Ramon Sylvester MD LAB BLOOD ORDERABLES Final Re sult [facility] [address] [place] [address] * (ABNORMAL) Tacrolimus, Highly Sensitive, LC/MS/MS (11/03/2024 8:12 AM CDT) Pathologist [facility] Tacrolimus, Highly Sensitive, LC/MS/MS 4.2(L) mcg/L [facility] Comment: No definitive therapeutic or toxic ranges have been established. Optimal blood drug levels are influenced by type of transplant, patient response, time post- transplant, co-administration of other drugs, and drug formulation. The following trough range is a suggested guideline: 5.0-20.0 mcg/L. 11/03/2024 8:12 AM CDT 11/03/2024 8:12 AM CDT Narrative [facility] - 11/05/2024 11:20 AM CDT PAE FASTING:YES FASTING: YES Jose Rafael Ramos MD LAB BLOOD ORDERABL ES Final Result Performing Organization Address City/[facility]/ZIP Co de Phone Number [facility] [address] [place] [address] * COPY(IES) SENT TO: (11/03/2024 8:12 AM CDT) COPY(IES) SENT TO: [facility] Comment: [facility] - COPY TO [place] [address] [place] [address] 11/03/2024 8:12 AM CDT 11/03/2024 8:12 AM CDT Narrative [facility] - 11/05/2024 11:20 AM CDT PAE FASTING:YES FASTING: YES Jose Rafael Ramos MD LAB BLOOD ORDERABL ES Final Result Performing Organization Address City/[facility]/ZIP Co de Phone Number [facility] * (ABNORMAL) CBC with auto differential (11/03/2024 8:12 AM CDT) WBC 8.1 3.8 - 10.8 Thousand/u L [facility] RBC, POC 4.19 3.80 - 5.10 Million/uL [facility] Hgb 14.2 11.7 - 15.5 g/dL [facility] Hct 42.6 35.0 - 45.0 % [facility] MCV 101.7(H) 80.0 - 100.0 fL [facility] MCH 33.9(H) 27.0 - 33.0 pg [facility] MCHC 33.3 32.0 - 36.0 g/dL [facility] Comment: For adults, a slight decrease in the calculated MCHC value (in the range of 30 to 32 g/dL) is most likely not clinically significant; however, it should be interpreted with caution in correlation with other red cell parameters and the patient's clinical condition. Rdw 14.2 11.0 - 15.0 % [facility] Platelets 186 140 - 400 Thousand/u L [facility] MPV 10.7 7.5 - 12.5 fL [facility] Neutrophils, abs 3,613 1,500 - 7,800 cells/uL [facility] Lymphocytes, abs 3,321 850 - 3,900 cells/uL [facility] Monocyte abs 624 200 - 950 cells/uL [facility] Eosinophils, abs 494 15 - 500 cells/uL [facility] Basophils, abs 49 0 - 200 cells/uL [facility] Neutrophils 44.6 % [facility] Lymphocyte pct 41.0 % [facility] Monocytes 7.7 % [facility] Eosinophils 6.1 % [facility] Basophils 0.6 % [facility] 11/03/2024 8:12 AM CDT 11/03/2024 8:12 AM CDT Narrative [facility] - 11/05/2024 11:20 AM CDT PAE FASTING:YES FASTING: YES us Jose Rafael Ramos MD LAB BLOOD ORDERABL ES Final Result [facility] [address] [place] [address] * (ABNORMAL) Renal function panel (11/03/2024 8:12 AM CDT) Pathologist [facility] Glucose 332(H) 65 - 99 mg/dL [facility] Comment: Fasting reference interval For someone without known diabetes, a glucose value >125 mg/dL indicates that they may have diabetes and this should be confirmed with a follow-up test. BUN 26(H) 7 - 25 mg/dL [facility] Creatinine 1.16(H) 0.50 - 1.03 mg/dL [facility] eGFR 57(L) > OR = 60 mL/min/1.7 3m2 [facility] BUN/creat ratio 22 6 - 22 (calc) [facility] Sodium 138 135 - 146 mmol/L [facility] Potassium, pl 3.9 3.5 - 5.3 mmol/L [facility] Chloride 97(L) 98 - 110 mmol/L [facility] CO2 37(H) 20 - 32 mmol/L [facility] Calcium 9.0 8.6 - 10.4 mg/dL [facility] Phosphorus, sr 4.3 2.5 - 4.5 mg/dL [facility] Albumin 3.9 3.6 - 5.1 g/dL [facility] 11/03/2024 8:12 AM CDT 11/03/2024 8:12 AM CDT Narrative [facility] - 11/05/2024 11:20 AM CDT PAE FASTING:YES FASTING: YES Jose Rafael Ramos MD LAB BLOOD ORDERABL ES Final Result [facility] [address] [place] [address] * Albumin Creatinine Ratio, Urine (07/14/2024 8:26 AM EDGER SAW OPERATOR) Creatinine, ur 95 20 - 275 mg/dL [facility] Microalbumin, ur 0.8 See Note: mg/dL [facility] Comment: Reference Range: Reference Range Not established Microalbumin/creat ratio 8 <30 mg/g creat [facility] Comment: The ADA defines abnormalities in albumin excretion as follows: Albuminuria Category Result (mg/g creatinine) Normal to Mildly increased <30 Moderately increased 30-299 Severely increased > OR = 300 The ADA recommends that at least two of three specimens collected within a 3-6 month period be abnormal before considering a patient to be within a diagnostic category. Urine 07/14/2024 8:26 AM EDGER SAW OPERATOR 07/14/2024 8:26 AM EDGER SAW OPERATOR Drew Godoy MD LAB URINE ORDERABLES Final Res ult [facility] [address] [address] * (ABNORMAL) Lipid panel (05/26/2024) SCRIBED Cholesterol, Total 164 140 - 199 TXP NO LA B FOUND SCRIBED HDL 59 40 TXP NO L AB FOUND SCRIBED LDL 67 0 - 130 TXP NO L AB FOUND SCRIBED Triglycerides 192(A) 0 - 150 TXP NO LAB FOUND Blood 05/26/2024 Historical Provider LAB BLOOD ORDERABLES Delmi l Result TXP NO LAB FOUND * Diabetic Eye Exam (10/28/2023 2:27 PM CDT) Historical Provider HEALTH MAINTENANCE Final Result * COLONOSCOPY (05/08/2022 12:35 PM CDT) Anatomical Region Laterality Modality Other Narrative Procedure Note Cricket Santamaria MD - 05/08/2022 12:35 PM CDT [facility] Patient Name: Juaquin Rey Procedure Date: 05/08/2022 12:35PM Date of : 1975 Admit Type: Outpatient Age: 47 Gender: Female Attending MD: Cricket Santamaria M.D. Room: [facility] 8 Note Status: Finalized Procedure: Colonoscopy Indications: Screening for colorectal malignant neoplasm. Inadequate preparation for screening colonoscopy yesterday. Referring MD: Ramon Sylvester M.D. Providers: Cricket Santamaria M.D. Medicines: Monitored Anesthesia Care Complications: No immediate complications. Estimated Blood Loss: Estimated blood loss was minimal. Procedure: Pre-Anesthesia Assessment: - The risks and benefits of the procedure and the sedation options and risks were discussed with the patient. All questions were answered and informed consent was obtained. - Immediately prior to administration ofmedications, the patient was re-assessed for adequacy to receive sedatives. The benefits, risks and alternatives of theprocedure and sedation were discussed and informed consentwas obtained. All questions were answered. Please referto the signed informed consent document in the medical record. The scope was passed under direct vision.The [id number] endoscope was introduced through the anus and advanced to the cecum, identified by appendiceal orifice and ileocecal valve. The colonoscopy was performed without difficulty. The patient tolerated the procedure well. The qualityof the bowel preparation was evaluated using the BBPS (Crane Bowel Preparation Scale) with scores of:Right Colon = 2 (minor amount of residual staining, small fragments of stool and/or opaque liquid, but mucosa seen well), Transverse Colon = 2 (minor amount of residual staining, small fragments of stool and/or opaque liquid, but mucosa seen well) and Left Colon= 2 (minor amount of residual staining, smallfragments of stool and/or opaque liquid, but mucosa seenwell). The total BBPS score equals 6. The quality of the bowel preparation was good. The bowel preparationused was polyethylene glycol (PEG) via extended prepwith split dose instruction. The quality of the bowel preparation was good. Findings: The perianal and digital rectal examinations were normal. A small amount of fibrous debris/seeds was found in the entire colon. This was moved with irrigation to visualize underlying mucosa. The appendiceal orifice and ileocecal valve appeared normal. Two sessile polyps were found in the transverse colon. The polypswere 3 to 4 mm in size. These polyps were removed with a cold snare.Resection and retrieval were complete. A few ulcers with adherent clot were found in the transverse colon consistent with recent polypectomy. No active bleeding. A 4 mm polyp was found in the descending colon. The polyp wassessile. The polyp was removed with a cold snare. Resection and retrieval were complete. Retroflexion in the rectum was not performed due to narrow caliber rectum. Careful inspection was performed on forward view and wasnormal. The exam was otherwise without abnormality. Impression: - The appendiceal orifice and ileocecal valve are normal. - Two 3 to 4 mm polyps in the transverse colon, removed with a cold snare. Resected andretrieved. - A few ulcers in the transverse colon. - One 4 mm polyp in the descending colon, removedwith a cold snare. Resected and retrieved. - The examination was otherwise normal. Recommendation: - Observe patient in GI recovery unit. - Await pathology results. - Repeat colonoscopy for surveillance based on pathology results from today as well as colonoscopy performed on 05/07/22. - Return to referring physician as previously scheduled. - Recommend two day prep and low residue diet for 1 week prior to future colonoscopies. - In the unusual situation that you developabdominal pain, bleeding or other significant problems in the days following this procedure please call my office [phone]). After hours and eveningsplease call [phone] and speak to the GI fellow augustin. Please tell the fellow that Dr. Santamaria did your procedure and that you were instructed to have the fellow call me or the physician covering for me to discuss the management of your condition. If youhave an urgent problem, please go to the nearestemergency room and have the ER doctor call my office duringthe day or the GI fellow after hours and weekends to arrange admission or transfer to our facility.Please bring this report with you if you go to theemergency room. Electronically signed by Cricket Santamaria MD Cricket Santamaria M.D. 05/08/2022 1:14:48 PM . Number of Addenda: 0 Note Initiated On: 05/08/2022 12:35 PM Recognized by the [employer] for promoting quality in endoscopy Cricket Santamaria MD ENDOSCOPY PROCEDURES Fi nal Result * TSH (10/25/2020 2:58 PM CDT) Pathologist [facility] TSH 0.671 0.450 - 4.500 uIU/mL [facility] - 01 Blood specimen (specimen) 10/25/2020 2:58 PM CDT 10/25/2020 Narrative [facility] - 10/26/2020 8:15 AM CDT Performed at: [address] [place] [address] [id number] Construction And Maintenance Inspector: Jean-Claude Snider PhD, Phone: [phone] Ramon Sylvester MD LAB BLOOD ORDERABLES Final Re sult [facility] - 01 * Hepatitis C (HCV) RNA PCR, quantitative (03/02/2020 4:44 PM CDT) [facility] HCV RNA result Not Detected [facility] Comment: Interpretive data: The quantifiable range of this assay is 15 IU/mL to 100,000,000 IU/mL (1.18 log IU/mL to 8.00 log IU/mL). Testing was performed by the [employer] AmpliPrep/KARLY TaqMan HCV Test version 2.0 ([employer] Testing performed at [facility] Current Interpretive Data was last revised on 2015. Blood specimen (specimen) 03/02/2020 4:44 PM CDT 03/02/2020 5:00 PM CDT Malcolm Mann MD LAB MICROBIOLOGY - GENERA L ORDERABLES Final Result [facility] Department [place] [address] from Last 3 Months or Most Recently Relevant to Health Maintenance Insurance [facility] MEDICARE ADVANTAGE [facility] MEDICARE IDPA [facility] MEDICARE ADVANTAGE [facility] MEDICARE ADVANTAGE Advance Directives For more information, please contact: [phone] * Full Code (Latest Code Status on File) Date Activated Date Inactivated Comments 11/26/2023 11:17 PM 11/28/2023 6:28 PM * Full Code Date Activated Date Inactivated Comments 02/24/2023 12:51 AM 02/25/2023 3:37 PM * Full Code Date Activated Date Inactivated Comments 02/24/2023 12:47 AM 02/24/2023 12:51 AM * Full Code Date Activated Date Inactivated Comments 02/20/2023 3:52 PM 02/21/2023 4:02 PM * Full Code Date Activated Date Inactivated Comments 05/08/2022 11:12 AM 05/08/2022 5:48 PM Care Teams Boat Designer Relationship Specialty Start Date End Date Ramon Sylvester MD PCP - General 08/31/16 Burak Blue MD Consulting Physician Nephrology 04/21/18 Juana Jimenez RN Fixture Relamper 03/09/19 Sylwia García MD Referring Physician Endocrinology Diabetes & Metabolism 03/21/20 Igor Yeager DO Consulting Physician Urology 04/27/20 Cristina Boyer RN [phone] [address] Secondary Kidney Coordinator Transplant 08/25/20 Rehg, Cyn Marmolejo NP [address] [place] [address] Nurse Practitioner Nurse Practitioner 12/06/21
--- OUTSIDE RECORDS SUMMARY | 2024-12-13 11:57 | XMS_ITS | Clinical Summary ---
Author Organization [facility] Address [address] [place] [address] Care Team Providers Care Custom Feed Corn Operator Name Role Phone Ramon Sylvester MD Primary Care Provider Burak Blue MD Unavailable [phone] Juana Jimenez RN Unavailable Sylwia García MD Unavailable Igor Yeager DO Unavailable Cristina Boyer RN Unavailable [phone] Cyn Fang NP Unavailable Allergies Active Allergy [...] 3 tablets (3 mg total) by mouth instant powder supervisor before breakfast DO NOT TAKE ON 11/28, [...] 3 Active blood-glucose meter,continuous (FreeStyle Lynda 3 [place]) [facility] Use as directed to check blood sugar [...] different from the original. Lab: [facility]- [phone] Standing Orders q-monthly FK, q3-HgbA1C. Exp. 06/16/25 Home Health: [facility] Home Care Local Pharmacy:[place] [address] Specialty Pharmacy: [facility] Problem Noted Date Diagnosed Date Pancreatic insufficiency 07/11/2024 Localized edema 01/22/2024 Assessment & Plan (01/22/2024 4:11 PM CDT): Continue furosemide Abnormal urinalysis/ UTI 11/26/2023 Assessment & Plan (11/29/2023 12:12 AM CDT): Reports experiencing burning sensation during urination and pain during urination for more than 2-3 months and has had multiple visit at [facility] in [place] with multiple abnormal urinalyses and recent cultures [...] home) Assessment & Plan (06/25/2023 3:24 PM CAN DRAGGER): Continue Ambien Assessment & Plan (02/24/2023 2:03 AM CDT): Cont home ambien PRN, reduce 10mg -> 5mg Liver lesion, right lobe 10/06/2022 superintendent terminal current 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 Change Lantus from hs to AM to decrease overnight lows. Assessment & Plan (11/05/2022 9:19 AM CDT): Need to minimize risk of hypoglycemia. Assessment & Plan (06/07/2022 5:23 PM CAN DRAGGER): Now improved, but still need to minimize [...] hypoglycemia Assessment & Plan (08/08/2021 3:28 PM CAN DRAGGER): -Affects post meal glucose readings -Closely monitor [...] 3:25 PM CDT): S/p right nephrectomy of [place] right kidney. POD1 N/V and Abd pain. [...] glucoses. Assessment & Plan (06/07/2022 5:24 PM CAN DRAGGER): This affects her ability to see a [...] Stable. Assessment & Plan (06/03/2023 5:34 AM CAN DRAGGER): Previous history of smoking. - Continue home inhalers and singulair. Essential hypertension 11/15/2019 Assessment & Plan (11/17/2024 3:59 PM CDT): BP at target Assessment & Plan (06/03/2023 5:41 AM CAN DRAGGER): Hold amlodipine for soft blood pressures. Assessment [...] 11/15/2019 Assessment & Plan (06/03/2023 5:43 AM CAN DRAGGER): Continue home statin. Assessment & Plan (02/24/2023 2:01 AM CDT): Cont home atorva 20mg. Assessment & Plan (11/05/2022 9:21 AM CDT): On atorvastatin 20mg. Optimize glycemic control. 10/2022- TG 173, HDL 66, LDL 66 Assessment & Plan (06/07/2022 5:29 PM CAN DRAGGER): Continue statin therapy (atorvastatin 20mg) and optimize [...] stable. Assessment & Plan (06/03/2023 5:34 AM CAN DRAGGER): - Continue home sertraline, nightly mirtazapine and [...] transplant evaluated pt in ED, following as hadoop consultant -per recs, will change envarsus to [...] 11/17/2018 Assessment & Plan (06/25/2023 3:25 PM CAN DRAGGER): Continue sertraline and Xanax Assessment & Plan (06/03/2023 5:33 AM CAN DRAGGER): Continue home xanax PRN Assessment & Plan [...] Monitor Assessment & Plan (06/03/2023 5:41 AM CAN DRAGGER): At home on glargine 28 units nightly [...] diabetes. Assessment & Plan (06/07/2022 5:38 PM CAN DRAGGER): Hemoglobin A1c increased to 8.5% on 05/22/2022. [...] insulin. Assessment & Plan (08/08/2021 3:28 PM CAN DRAGGER): -Currently taking MDI and using Lynda -A1C [...] control. Assessment & Plan (06/07/2022 5:25 PM CAN DRAGGER): Managed by Dr. Bhatt. Needs optimal glycemic control. Assessment & Plan (03/23/2022 9:06 AM CDT): Managed by Dr. Bhatt. Needs optimal glycemic control Assessment & Plan (07/11/2020 5:49 PM CAN DRAGGER): Resolved following course of antiviral therapy. 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 Assessment & Plan (06/07/2022 5:25 PM CAN DRAGGER): Taking daily immunosuppressants which complicate glycemic management. Assessment & Plan (08/06/2021 3:09 PM CAN DRAGGER): -superintendent terminal use of immunosuppressants and steroids complicates diabetes [...] has. I encouraged her to see an investigations consultant again just to make sure that she does or does not need ongoing follow-up Assessment & Plan (08/06/2021 3:07 PM CAN DRAGGER): -Patient is legally blind -CGM allows for increase in safety as there is audile alarm for high and low blood sugars Resolved Problems Problem Noted Date Diagnosed Date Resolved Date Ketosis 06/03/2023 06/25/2023 Assessment & Plan (06/03/2023 5:41 AM CAN DRAGGER): Patient presenting with nausea and vomiting that [...] 06/25/2023 Assessment & Plan (06/03/2023 5:45 AM CAN DRAGGER): Presenting with 1 week history of UT [...] 7.1, lactate 2.4. Hyperglycemic without gap. BG 7., UA w/ 3+ketones. S/p 2L LR and [...] (03/28/2021): Added automatically from request for surgery [id number] Colon cancer screening 03/28/202104/19 Overview (03/28/2021): Added automatically from request for surgery [id number] Gastroparesis 02/23/2021 06/25/2023 Assessment & Plan (02/20/2023 [...] 02/23/2021 Assessment & Plan (08/08/2021 3:29 PM CAN DRAGGER): -BP today is 132/78 -Will continue same [...] 08/03/2020 Assessment & Plan (08/03/2020 3:05 PM CAN DRAGGER): Plan is to give Augmentin 875/125 b.i.d. [...] previous h/o similar symptoms requiring hospitalization in 2 thought to be viral gastroenteritis. Considerations today [...] fo r end stage renal disease 04/28/2019 Encounters Date Type Department Care Team Description 12/04/2024 3:00 PM CDT Office Visit [facility] Endocr[facility]ology Metabolism and Lipid [address] [place] [address] 13th [place] [address] [place] [address] Gavi Cervantes NP Type 1 diabetes mellitus with other specified complication (HCC) (Primary Dx); FPC current use of insulin (HCC); Hyperlipidemia, unspecified hyperlipidemia type 11/17/2024 3:00 PM CDT Office Visit [facility] [address] [place] [phone] Ramon Sylvester MD Visit for screening mammogram (Primary Dx); 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, unspecified laterality (HCC); Renal transplant recipient; Type 1 diabetes mellitus with other specified complication (HCC); Essential hypertension; Chronic obstructive pulmonary disease, unspecified COPD type (HCC) 11/05/2024 Results Follow-Up [facility] [address] [place] [address] [address] [address] Ramon Sylvester MD [facility] 11/03/2024 Orders Only [facility] Nephrology [address] [place] [address] [place] [address] Jose Rafael Ramos MD 09/25/2024 Orders Only [facility] Endocrinology Metabolism and Lipid [address] [place] [address] [place] [phone] Drew Godoy MD 09/25/2024 Telephone [facility] Endocrinology Metabolism and Lipid [address]th [place] [address] [place] [phone] Patricia Ravi, [facility] Freesetyle lynda 3 plus refills from Last 3 Months Immunizations Immunization Administration Dates Next Due COVID-19 mRNA ([employer]) 0.3 m L (30 mcg) vaccine (12 [...] PCV 13 03/06/2019 ,03/06/2019,07/08/2015,07/08,07/06/2015,07/06/2015 ZOSTER Recombinant 08/21/2024 Surgical History Surgery Date Site/Laterality Comments US ABDOMEN COMPLETE W LIVER DOPPLER (C) 04/21/2018 Right PERITONEAL CATHETER INSERTIO N TUNNELED APPENDECTOMY KIDNEY TRANSPLANT HYSTERECTOMY partial ARM SURGERY 14 surgeries on right arm BREAST LUMPECTOMY benign, no lymph nodes removed Medical History Medical History Date Comments MRSA bacteremia 2009 Asthma GERD (gastroesophageal reflux disease) Gout Hepatitis C Hep C Arthritis Renal disorder 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 Diabetic retinopathy (HCC) Anemia Hard to intubate per 02/2019 cristiano ey transplant notes Lee positive DM (diabetes mellitus) (HCC) typ e 1 COPD (chronic obstructive pu lmonary disease) (HCC) DVT, lower extremity (HCC) right leg Nausea vomiting and diarrhea 02/23/2021 Hypertension Hyperlipidemia Type 2 diabetes mellitus (HCC) Depression Anxiety History of transfusion Family History Medical History Relation Name Comments No Known Problems Father Colon polyps Mother Relation Name Status Comments Father Mother Social History Tobacco Use Types Packs/Day Years Used Date Smoking Tobacco: Former Cigarettes 2 - 10/2017 Smokeless Tobacco: Never Tobacco Cessation:Counseling Given: No Alcohol Use Standard Drinks/Week Comments No 0 (1 standard drink = 0.6 oz pur e alcohol) [facility] [employer] Answer Date Recorded In the past 12 months has [employer], gas, oil, or water Payvment threatened to shut off services in your [...] 11/28/2023 How often do you attend chur or catholic services? Patient unable to answer 11/28/2023 Do you belong to any clubs o r organizations such as protestant groups, unions, fraternal or athletic groups, or [...] place to sleep or slept in a group home (including now)? Patient unable to answer 11/28/2023 Personal Safety Answer Date Recorded Have you ever been in or are you currently in a harmful physical or emotional relationship or is someone making you feel afraid or unsafe? 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 Not on file Not on file Not on file Obstetrics History Last Filed Vital Signs Vital Sign Reading [...] KIDNEY ESRD (end stage renal disease) (HCC) Health Maintenance Due Date Last Done Comments Breast Cancer Screening-Mammogram 1974 Depression Screening 1974 DTaP/Tdap/Td Vaccine (1 - Tdap) 1985 Regular Well Visit/Exam 18-64 02/04/1992 Pneumococcal vaccine <65 (2 of 2 - PPSV23) 05/01/2019 03/06/2019, 03/06/2019, 07/08/2015, Additional history exists TSH Level 10/25/2021 10/25/2020, 08/0 10/2019, 07/06/2019 Covid-19 Vaccine (6 - Pfizer risk 2023- season) 2024 04/05/2024, 04/17/2021, 11/20/2020, Additional history exists Zoster Vaccine (2 of 2) 10/16/2024 08/21/2024 Dilated Eye Exam 10/27/2024 10/28/2023 Lipid Panel 05/26/2025 05/26/2024, 01/27, 11/19/2023, Additional history exists Hemoglobin A1C 06/06/2025 12/04/2024, 04/29, 02/18/2024, Additional history exists Albumin Creatinine Ratio, Urine 07/14/2025 , 07/06/2019 eGFR 11/03/2025 11/03/2024, 07/30, 07/14/2024, Additional history exists Foot Exam 12/04/2025 12/04/2024 Colon Cancer Screening-Colonoscopy 05/08/20322021, 05/07/2022 Influenza Vaccine Completed 04/05/2024, , 07/08/2015, Additional history exists Hepatitis C Screening Completed 04/29/2024 , 11/05/2022, 06/07/2022, Additional history exists Medical Devices Explanted Type Area Zinc Miner Blasting Device Identifier Shelf Expiration Date Model / Serial / Lot Whit-Surgit ek [id number]-J 6fr 20cm 100cm 1 Step Insert Push Catheter Marquez Suture - [id number] Implanted:Qty : 1 on 03/09/2019 by Tommie Cortes MD at [facility] Explanted:Qty : 1 on 04/06/2019 by Ted Farrell NP Stent Right: Ureter Circon-Surgitek [id number] 02/14/2023 [id number] / / [id number] Description:Transplanted Ure ter Procedures Procedure Name Priority Date/Time Associated Diagnosis Comments POCT GLUCOSE 82935 Routine 12/04/2024 3: 03 PM CDT Type [...] CREATININE RATIO, URINE Routine 07/14/2024 8:26 AM CAN DRAGGER Type 1 diabetes mellitus with other specified complication (HCC) LIPID PANEL Routine 05/26/2024 DIABETIC EYE EXAM Routine 10/28/2023 2:2 7 PM CDT COLONOSCOPY 05/08/2022 12:35 PM CDT TSH Routine 10/25/2020 2:58 PM CDT Anxiety HEPATITIS C RNA, QUANTITATIVE, PCR STAT 03/02/2020 4:44 PM CDT from Last 3 Months or Most Recently Relevant to Health Maintenance Results * POCT glucose (12/04/2024 3:03 PM CDT) Glucose Blood, POC 253 Normal Fasting 70 - 100, Random <200 mg/dL Blood 12/04/2024 3:03 PM CDT Gavi Cervantes PASSENGER ATTENDANT POINT OF CARE TEST ORDERA BLES Final Result * (ABNORMAL) POCT hemoglobin A1c (12/04/2024 3:03 PM CDT) Hemoglobin A1C, POC 9.4(A) 4.0 - 5.6 % Blood 12/04/2024 3:03 PM CDT us Gavi Cervantes NP POINT OF CARE TEST ORDERA BLES Final Result * Magnesium (11/03/2024 8:13 AM CDT) Magnesium 2.0 1.5 - 2.5 mg/dL [facility] Blood 11/03/2024 8:13 AM CDT 11/03/2024 8:14 AM CDT Narrative [facility] - 11/04/2024 3:56 AM CDT FASTING:YES FASTING: YES Ramon Sylvester MD LAB BLOOD ORDERABLES Final Re sult [facility] [address] [address] [place] [address] * (ABNORMAL) Tacrolimus, Highly Sensitive, LC/MS/MS (11/03/2024 8:12 AM CDT) Pathologist [facility] Tacrolimus, Highly Sensitive, LC/MS/MS 4.2(L) mcg/L [facility] [...] ORDERABL ES Final Result Performing Organization Address [facility]/ZIP Co de Phone Number [facility] [address] [place] [address] * COPY(IES) SENT TO: (11/03/2024 8:12 AM CDT) [facility] COPY(IES) SENT TO: [facility] Comment: [facility] KIDNEY - COPY TO [facility] [address] [place] [address] 11/03/2024 8:12 AM CDT 11/03/2024 8:12 AM CDT Narrative [facility] - 11/05/2024 11:20 AM CDT PAE FASTING:YES FASTING: YES Jose Rafael Ramos MD LAB BLOOD ORDERABL ES Final Result [facility] * (ABNORMAL) CBC with auto differential (11/03/2024 8:12 AM CDT) [facility] WBC 8.1 3.8 - 10.8 Thousand/u L [...] BLOOD ORDERABL ES Final Result [facility] [address] [address] [place] [address] * (ABNORMAL) Renal function panel (11/03/2024 8:12 AM CDT) Glucose 332(H) 65 - 99 mg/dL [facility] [...] BLOOD ORDERABL ES Final Result [facility] [address] [place] [address] * Albumin Creatinine Ratio, Urine (07/14/2024 8:26 AM CAN DRAGGER) Creatinine, ur 95 20 - 275 mg/dL [...] a diagnostic category. Urine 07/14/2024 8:26 AM CAN DRAGGER 07/14/2024 8:26 AM CAN DRAGGER Drew Godoy MD LAB URINE ORDERABLES Final Res ult [facility] [address] [place] [address] * (ABNORMAL) Lipid panel (05/26/2024) SCRIBED Cholesterol, Total 164 140 - 199 TXP NO LA B FOUND SCRIBED HDL 59 40 TXP NO L AB FOUND SCRIBED LDL 67 0 - 130 TXP NO L AB FOUND SCRIBED Triglycerides 192(A) 0 - 150 TXP NO LAB FOUND Blood 05/26/2024 Historical Provider LAB BLOOD ORDERABLES Delmi l Result Performing Organization Address [facility] Co de Phone Number TXP NO LAB FOUND * Diabetic Eye [...] Female Attending MD: Cricket Santamaria M.D. Room: [facility] ENDOSCOPY ROOM 8 Note Status: Finalized Procedure: [...] The scope was passed under direct vision.The [id number] endoscope was introduced through the anus and advanced to the cecum, identified by appendiceal orifice and ileocecal valve. The colonoscopy was performed without difficulty. The patient tolerated the procedure well. The qualityof the bowel preparation was evaluated using the BBPS ([place]ilton Bowel Preparation Scale) with scores of:Right Colon [...] following this procedure please call my office [phone]). After hours and eveningsplease call [phone] and speak to the GI fellow oncmartin. Please tell the fellow that Dr. Santamaria [...] On: 05/08/2022 12:35 PM Recognized by the [employer] for promoting quality in endoscopy Cricket Santamaria MD ENDOSCOPY PROCEDURES Fi nal Result * TSH (10/25/2020 2:58 PM CDT) [facility] TSH 0.671 0.450 - 4.500 uIU/mL [facility] - 01 Blood specimen (specimen) 10/25/2020 2:58 PM CDT 10/25/2020 Narrative [facility] - 10/26/2020 8:15 AM CDT Performed at: - [address] [id number] Director Of Staff Development: Jean-Claude Snider PhD, Phone: [phone] Ramon Sylvester MD LAB BLOOD ORDERABLES Final Re sult [facility] - 01 * Hepatitis C (HCV) RNA PCR, quantitative (03/02/2020 4:44 PM CDT) [facility] HCV RNA result Not Detected [facility] [place] Comment: Interpretive data: The quantifiable range of this assay is 15 IU/mL to 100,000,000 IU/mL (1.18 log IU/mL to 8.00 log IU/mL). Testing was performed by the KARLY AmpliPrep/KARLY TaqMan HCV Test version 2.0 ([employer] Testing performed at [facility] Current Interpretive Data was last revised on 2015. Blood specimen (specimen) 03/02/2020 4:44 PM CDT 03/02/2020 5:00 PM CDT Malcolm Mann MD LAB MICROBIOLOGY - GENERA L ORDERABLES Final Result [facility] Department [place] [address] from Last 3 Months or Most Recently Relevant to Health Maintenance Insurance [facility] MEDICARE ADVANTAGE [facility] MEDICARE [facility] Address: [address] [address] [place] [address] [facility] UHC MEDICARE ADVANTAGE [facility] MEDICARE ADVANTAGE Advance Directives For more information, please contact: [phone] * Full Code (Latest Code Status on [...] 11:12 AM 05/08/2022 5:48 PM Care Teams Custom Feed Corn Operator Relationship Specialty Start Date End Date Ramon Sylvester MD PCP - General 08/31/16 Burak Blue MD Consulting Physician Nephrology 04/21/18 Juana Jimenez RN Car Shunter 03/09/19 Sylwia García MD Referring Physician Endocrinology Diabetes & Metabolism 03/21/20 Igor Yeager DO Consulting Physician Urology 04/27/20 Cristina Boyer RN [address] [address] Secondary Kidney Coordinator Transplant 08/25/20 Cyn Fang NP [address] [address] Nurse Practitioner Nurse Practitioner 12/06/21
--- OUTSIDE RECORDS SUMMARY | 2024-12-13 11:57 | XMS_ITS | Encounter Summary ---
Author Organization [facility] Health Address [address] [place] [address] Care Team Providers Care Steel Crane Operator Name Role Phone Ramon Sylvester MD Primary Care Provider [phone] Ramon Sylvester MD Unavailable [phone] Encounter Details Date Type Department Care Team (Late st Contact Info) Description 12/11/2017 [facility] Outpatient Visit [facility] [address] [place] [address] [place] [address] [address] Social History Tobacco Use Types [...] on filedocumented in this encounter Care Teams Steel Crane Operator Relationship Specialty Start Date End Date Ramon Sylvester MD PCP - General Internal Medicine 10/19/16 Ramon Sylvester MD Internal Medicine 10/19/16 documented as of this encounter
--- OUTSIDE RECORDS SUMMARY | 2024-12-13 11:57 | XMS_ITS | Clinical Summary ---
Author Organization [facility] Address [address] [place] [address] Care Team Providers Care Professor Of Forestry Name Role Phone Ramon Sylvester MD Primary Care Provider [phone] Ramon Sylvester MD Unavailable [phone] [facility],non-owned Affiliates and Associated Physician Practices is amultiple site organization consisting of ambulatory clinics and hospital sitesin [place], [place], [place] and [place]. This disclosure is being madepursuant to the Care Everywhere program and may not contain all information available regarding this patient. Last updated 18.[facility] Allergies Active Allergy Reactions Criticality Noted Date [...] MCG/ACT nasal sprayIndicatio ns:Nasal Signs and Symptoms [place] 2 Sprays into each nostril once daily [...] age to complete this topic Insurance MEDICARE [facility] Care Teams Professor Of Forestry Relationship Specialty Start Date End Date Ramon Sylvester MD PCP - General Internal Medicine 10/19/16 Ramon Sylvester MD Internal Medicine 10/19/16
--- OUTSIDE RECORDS SUMMARY | 2024-12-13 11:57 | XMS_ITS ---
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 Lab: [facility]- [phone] Standing Orders q-monthly FK, q3-HgbA1C. Exp. 06/16/25 Home Health: [facility] Home Care Local Pharmacy:[id number] Specialty Pharmacy: [facility] Problem Noted Date Diagnosed Date Pancreatic insufficiency 07/11/2024 Localized edema 01/22/2024 Assessment & Plan (01/22/2024 4:11 PM CDT): Continue furosemide Abnormal urinalysis/ UTI 11/26/2023 Assessment & Plan (11/29/2023 12:12 AM CDT): Reports experiencing burning sensation during urination and pain during urination for more than 2-3 months and has had multiple visit at [facility] in [place] with multiple abnormal urinalyses and recent cultures [...] home) Assessment & Plan (06/25/2023 3:24 PM MASTICATOR): Continue Ambien Assessment & Plan (02/24/2023 2:03 AM CDT): Cont home ambien PRN, reduce 10mg -> 5mg Liver lesion, right lobe 10/06/2022 skilled nursing current 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 Change Lantus from hs to AM to decrease overnight lows. Assessment & Plan (11/05/2022 9:19 AM CDT): Need to minimize risk of hypoglycemia. Assessment & Plan (06/07/2022 5:23 PM MASTICATOR): Now improved, but still need to minimize [...] hypoglycemia Assessment & Plan (08/08/2021 3:28 PM MASTICATOR): -Affects post meal glucose readings -Closely monitor [...] 3:25 PM CDT): S/p right nephrectomy of kiana right kidney. POD1 N/V and Abd pain. [...] glucoses. Assessment & Plan (06/07/2022 5:24 PM MASTICATOR): This affects her ability to see a [...] Stable. Assessment & Plan (06/03/2023 5:34 AM MASTICATOR): Previous history of smoking. - Continue home inhalers and singulair. Essential hypertension 11/15/2019 Assessment & Plan (11/17/2024 3:59 PM CDT): BP at target Assessment & Plan (06/03/2023 5:41 AM MASTICATOR): Hold amlodipine for soft blood pressures. Assessment [...] 11/15/2019 Assessment & Plan (06/03/2023 5:43 AM MASTICATOR): Continue home statin. Assessment & Plan (02/24/2023 2:01 AM CDT): Cont home atorva 20mg. Assessment & Plan (11/05/2022 9:21 AM CDT): On atorvastatin 20mg. Optimize glycemic control. 10/2022- TG 173, HDL 66, LDL 66 Assessment & Plan (06/07/2022 5:29 PM MASTICATOR): Continue statin therapy (atorvastatin 20mg) and optimize [...] stable. 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 Assessment & Plan (06/07/2022 5:38 PM MASTICATOR): Hemoglobin A1c increased to 8.5% on 05/22/2022. [...] insulin. Assessment & Plan (08/08/2021 3:28 PM MASTICATOR): -Currently taking MDI and using Lynda -A1C [...] control. Assessment & Plan (06/07/2022 5:25 PM MASTICATOR): Managed by Dr. Bhatt. Needs optimal glycemic control. Assessment & Plan (03/23/2022 9:06 AM CDT): Managed by Dr. Bhatt. Needs optimal glycemic control Assessment & Plan (07/11/2020 5:49 PM MASTICATOR): Resolved following course of antiviral therapy. 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 Assessment & Plan (06/07/2022 5:25 PM MASTICATOR): Taking daily immunosuppressants which complicate glycemic management. 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 I encouraged her to see an facilities officer again just to make sure that she does or does not need ongoing follow-up Assessment & Plan (08/06/2021 3:07 PM MASTICATOR): -Patient is legally blind -CGM allows for [...] 06/25/2023 Assessment & Plan (06/03/2023 5:41 AM MASTICATOR): Patient presenting with nausea and vomiting that [...] 06/25/2023 Assessment & Plan (06/03/2023 5:45 AM MASTICATOR): Presenting with 1 week history of UT [...] (03/28/2021): Added automatically from request for surgery [id number] Colon cancer screening 03/28/202104/19 Overview (03/28/2021): Added automatically from request for surgery [id number] Gastroparesis 02/23/2021 06/25/2023 Assessment & Plan (02/20/2023 [...] 02/23/2021 Assessment & Plan (08/08/2021 3:29 PM MASTICATOR): -BP today is 132/78 -Will continue same [...] or scopolamine patch. She does not meet [facility] criteria for use of palonosetron. -Check Cdiff, stool cx if continues to have diarrhea Acute cystitis without hematuria 12/22/2020 06/25/2023 Assessment & Plan (12/22/2020 2:21 PM CDT): Repeat UA, C & S in 2 weeks after completing Bactrim DS Work note for this week Acute otitis media 08/03/2020 Assessment & Plan (08/03/2020 3:05 PM MASTICATOR): Plan is to give Augmentin 875/125 b.i.d. [...]
--- OUTSIDE RECORDS SUMMARY | 2024-12-13 11:57 | XMS_ITS | CONTINUITY OF CARE DOCUMENT ---
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
--- OUTSIDE RECORDS SUMMARY | 2024-12-13 11:57 | XMS_ITS | Data Portability ---
Author Organization [place] [facility], Main Office Address [address] [place] [address] Care Team Providers Care Customer Service Representative Name Role Phone EMY CHANEY Primary Care Provider Assessment Encounter Date Assessment Date Assessment LastModified by Organization Details LastModified Time 01/28/2024 01/28/2024 This note is dictated and transcribed by [employer]. Packing Machine Tender variances may occur. Despite proofreading, typographical errors may occur. Occasional wrong-word or 'skrgl-d-cpus' substitutions may have occurred due to the inherent limitations of voice recording. Read the chart carefully and recognize, using context, where substitutions have occurred. Not available 01/28/2024 16:22:17 02/04/2024 02/04/2024 This note is dictated and transcribed by [employer]. P[employer] Machine Tender variances may occur. Despite proofreading, typographical errors may occur. Occasional wrong-word or 'mcplv-r-xaxe' substitutions may have occurred due to the inherent limitations of voice recording. Read the chart carefully and recognize, using context, where substitutions have occurred. Not available 02/04/2024 10:05:41 05/05/2024 05/05/2024 This note is dictated and transcribed by [employer]. Packing Machine Tender variances may occur. Despite proofreading, typographical errors may occur. Occasional wrong-word or 'xkpie-h-mkja' substitutions may have occurred due to the inherent limitations of voice recording. Read the chart carefully and recognize, using context, where substitutions have occurred. Not available 05/05/2024 15:16:03 09/23/2024 09/23/2024 This note is dictated and transcribed by [employer]. Packing Machine Tender variances may occur. Despite proofreading, typographical errors may occur. Occasional wrong-word or 'tgnsb-p-pyig' substitutions may have occurred due to the [...] e 2 % topical cream 2024 025 [facility]acy #[id number], [address], [place], [address], 5 15:26:59 ketoconazol e 2 % topical cream 2023 024 [id number], [address], [place], [address], 4 15:16:26 ketoconazol e 2 % topical cream 2023 024 [id number], [address], [place], [address], 4 10:06:13 Patient TargetsNo targets recorded. Patient InstructionsNo instructions recorded. Reason for Referral None Reported. Results Created Date Observation Date Name Description Value Unit Range Abnormal Flag Note LastModifiedBy Organization Detail LastModifiedTime 10/21/1910/21/2023 US, duple x, arter ial, lower extre mity, compl ete No observ ation record ed. [email or web address] [facility] ([facility]) [address] [place], [address], 10/21/2023 13:31:53 10/21/19 24 10/21/2023 (BIANCA) ankle brach ial index * No observ ation record ed. [email or web address] [facility] ([facility]) [address] [place], [address], 10/21/2023 13:31:53 Result Notes None recorded. Problems Name Problem SNOMED Code Status Onset Date Resolution Date Notes Provider Name and Address Organization Details Recorded Time Metatarsalgia 47912390 Active 2018 Not Available [facility] 3 17:12:38 Tobacco user 140143403 Active Not Available [facility] 3 17:12:38 Disorder of shoulder 288394432 Active Not Available [facility] 3 17:12:38 Hypercholeste rolemia 62866653 Active 2018 Not Available [facility] 3 17:12:38 Chronic obstructive pulmonary disease 21390425 Active Not Available [facility] 3 17:12:38 Bipolar disorder 54428042 Active Not Available [facility] 3 17:12:38 Backache 740438141 Active Not Available [facility] 3 17:12:38 Heartburn 10006733 Active 2018 Not Available [facility] 3 17:12:38 Insomnia 768932827 Active Not Available [facility] 3 17:12:38 Raynaud's disease 755943469 Active Not Available [facility] 3 17:12:38 Asthma 064238161 Active 2018 Not Available [facility] 3 17:12:38 Fibromyalgia 054088363 Active 2018 Not Available [facility] 3 17:12:38 Blindness of one eye Active Not Available [facility] 3 17:12:38 Gastroesophag eal reflux disease 095697142 Active Not Available [facility] 3 17:12:39 Edema 521260147 Active Not Available [facility] 3 17:12:39 Low back pain 768078298 Active Not Available [facility] 3 17:12:39 Enthesopathy of hip region 38292996 Active Not Available [facility] 3 17:12:39 Bronchitis 61808067 Active 2018 Not Available [facility] 3 17:12:39 Depressive disorder 60486002 Active 2018 Not Available [facility] 3 17:12:39 Diabetic foot ulcer 709492625 Active 2019 Not Available [facility] 3 17:12:39 Diabetic foot ulcer 264631609 Active 2019 Not Available [facility] 3 17:12:39 Arthritis 5605468 Active 2018 Not Available [facility] 3 17:12:39 Osteoarthriti s 520235910 Active Not Available [facility] 3 17:12:39 Sleep disorder 26230450 Active 2018 Not Available [facility] 3 17:12:39 Calcium deposits in tendon 519093367 Active Not Available [facility] 3 17:12:40 Seasonal allergy 625850283 Active 2018 Not Available [facility] 3 17:12:40 Pain of shoulder region 58316944 Active Not Available [facility] 3 17:12:40 Anxiety 20694820 Active 2018 Not Available [facility] 3 17:12:40 Hyperlipidemi a 69088469 Active Not Available [facility] 3 17:12:40 Essential hypertension 26510446 Active Not Available [facility] 3 17:12:40 Noncompliance with treatment 4486087 Active 2019 Not Available [facility] 3 17:12:40 Diabetes mellitus 44917775 Active Not Available [facility] 3 17:12:40 Smoker 96443593 Active Not Available [facility] 3 17:12:40 Hyperglycemia 53052275 Active Not Available [facility] 3 17:12:40 Neck pain 27780040 Active Not Available [facility] 3 17:12:40 Gout 61124692 Active 2018 Not Available [facility] 3 17:12:41 Fissure in skin 85317905 Active 2018 Not Available [facility] 3 17:12:41 Environmental allergy 585788788 Active 2023 RAJNI Silva Zeferino [facility] 4 09:31:24 Anemia 294552290 Active 2023 Zoe Campbell null, [place] [facility] 4 09:31:39 Dialysis care Active 2023 Zoe Campbell null, [place] [facility] 4 09:32:07 Ear problem 087209456 Active 2023 Zoe Campbell null, [place] [facility] 4 09:32:17 Disorder of eye 373524300 Active 2023 Zoe Campbell null, [place] [facility] 4 09:32:26 Headache 62560215 Active 2023 Zoe Campbell null, [place] [facility] 4 09:32:53 Disease of liver 174494535 Active 2023 Zoe Campbell null, [place] [facility] 4 09:33:01 Kidney disease 98791702 Active 2023 Zoe Campbell null, [place] [facility] 4 09:33:25 Migraine 64026035 Active 2023 Zoe Campbell null, [place] [facility] 4 09:33:33 Peripheral vascular disease 164452373 Active 2023 Michael Mccrary DPM [address], [place], [address] , [facility] 4 09:45:59 Cigarette smoker 93842511 Active 2023 Michael Mccrary DPM [address], [address], [place], [address] , [facility] 4 09:46:05 Onychomycosis of toenails 890092850 Active 2023 Michael Mccrary DPM [address], [place], [address] , [facility] 4 09:47:01 Dystrophia unguium 54990201 Active 2023 Michael Mccrary DPM [address], [address], [place], [address] , [employer] [facility] 09:47:10 Diabetic peripheral neuropathy 050071724 Active 2023 Michael Mccrary DPM [address], [place], [address] , [employer] 09:47:27 Notes:back/neck problems, di alysis, ear problems, [...] Mccrary DPM [address], [address], [place], [address], [employer] 09/23/2024 15:26:25 01/28/20 24 Toenail avulsion completed Michael Mccrary DPM [address], [place], [address], [employer] 01/28/2024 16:22:30 10/17/19 24 Nail Debridement completed Michael Mccrary DPM [address], [place], [address], [employer] [facility] [employer] [facility] 10/17/2023 09:56:54 Appendectomy completed Zoe Campbell [employer] [facility] [email or web address] 10/17/2023 09:35:32 Hysterectomy completed Zoe Campbell [employer] [facility] [email or web address] 10/17/2023 09:35:39 transplant of kidney completed Zoe Campbell [employer] [facility] [email or web address] 10/17/2023 09:35:51 total nephrectomy completed Zoe Campbell [place] Haile[facility] [email or web address] 10/17/2023 09:36:56 Imaging Results Imaging Date Name Status LastModified by Organiz ation Details LastModified Time 10/21/2023 US, duplex, arterial, lower extremity, complete completed [email or web address] [facility] ([facility]) [address] [place], [address], 10/21/2023 13:31:53 10/21/2023 (BIANCA) ankle brachial index* completed [email or web address] [facility] ([facility]) [address] [place], [address], 10/21/2023 13:31:53 Procedure Notes None recorded. Medical Equipment None Reported. Allergies Allergen ID Allergen Name Allergen Category Reaction Reaction Severity Criticality Documentation Date Start Date Code Code System Note Provider Name and Address Organization Details Recorded Time 54413 tetracycl ine medicatio n vomiting Not available Not available 09/26/2022 90990 RxNorm Not Available [facility] 3 17:13:27 16626 morphine medicatio n Not available Not available Not available 09/26/2022 7052 RxNorm sever e itchi ng Not Available [facility] 3 17:13:27 53237 metformin medicatio n diarrhea Not available Not available 09/26/2022 6809 RxNorm Not Available [facility] 3 17:13:28 13749 cyclobenz aprine hydrochlo ride medicatio n hives Not available Not available 09/26/2022 46082 RxNorm Not Available [facility] 3 17:13:28 24404 codeine medicatio n Not available Not available Not available 09/26/2022 2670 RxNorm sever e itchi ng Not Available [facility] 3 17:13:28 Medications Name Sig Start Date [...] process of trying to get in with [facility] Not Available Not Available Not Available furosemid [...] Not Available No t Available Fluzone Quad 2756-7518 60 mcg (15 mcg x 4)/0.5 mL IM suspensio n active Not Available Not Available Not Available Envarsus XR 1 mg tablet,ex tended release TAKE 3 TABLETS BY MOUTH BOX SPRING UPHOLSTERER BEFORE BREAKFAS T DO NOT TAKE ON [...] Available No t Available [employer] Lynda 3 [place] active Not Available Not Available Not Available Zenpep 60,000-18 9,600-252 ,600 unit capsule,d elayed release TAKE 1 CAPSULE BY MOUTH BEFORE MEALS AND/OR SNACKS active Not Available Not Available No t Available [employer] Lynda 3 Plus Sensor device USE 1 SENSOR EVERY 15 DAYS active Not Available Not Available No t Available Vitals Date Recorded Body height Provider Name an d Address Organization Details Last Updated DateTime 11/14/2023 157.48 cm Johanna Dee Zeferino [employer] 11/14/2023 17:25:13 Date Recorded Body height Heart rate Systolic blood pressure Diastolic blood pressure Provider Name and Address Organization Details Last Updated DateTime 01/28/2024 157.48 cm 100 /min 167 mm[Hg] 100 mm[Hg] Madelin Dee Zeferino [email or web address] 01/28/2024 16:02:53 Date Recorded Body height Heart rate Systolic blood pressure Diastolic blood pressure Provider Name and Address Organization Details Last Updated DateTime 02/04/2024 157.48 cm 91 /min 138 mm[Hg] 86 mm[Hg] Belia URBAN [facility] [place] [email or web address] [facility] 02/04/2024 09:38:23 Date Recorded Body height Body mass index (BMI) Body weight Heart rate Respiratory rate Oxygen saturation Oxygen saturation in Arterial blood by Pulse oximetry Systolic blood pressure Diastolic blood pressure Provider Name and Address Organization Details Last Updated DateTime 157.48 cm 26.5 kg/m2 32807.8 9 g 75 /min 14 /min 99 % 99 % 104 mm[Hg] 66 mm[Hg] Johanna Cruz [facility] [email or web address] [facility] 14:49:45 Date Recorded Body height Body temperature Respiratory rate Oxygen saturation Oxygen saturation in Arterial blood by Pulse oximetry Heart rate Body mass index (BMI) Body weight Systolic blood pressure Diastolic blood pressure Provider Name and Address Organization Details Last Updated DateTime 157.48 cm 97.8 [degF] 16 /min 97 % 97 % 78 /min 26.5 kg/m2 23070.8 9 g 117 mm[Hg] 63 mm[Hg] Debbie Pineda [facility] [employer] [facility] 15:06:38 Social History Question Answer Notes LastModified by [employer] Details LastModified Time Tobacco Smoking Status Former Smoker Zoe Campbell [facility] 10/17/2023 09:35:12 When Did You Quit Smoking? 6-10yearssin celastcigare tte Information not available 10/17/2023 How Many Years Have You Smoked Tobacco? 12 Information not available 10/17/2023 Sex: Unknown Functional Status Question Answer Note LastModified by [employer] Details LastModified Time What is your level of alcohol consumption? None Information not available 10/17/2023 What is your occupation? [employer] employee [id number] Information not available 09/26/2022 Mental Status None recorded. Family History Relationship Description Onset Age of this Age Resolved Age Notes LastModified by Organization Details LastModified Time Father Diabetes mellitus Not available 2023 09:34:25 Unspecified Relation Diabetes mellitus GRANDF ATHER Not available 10/17/2023 09:34:25 Unspecified Relation Family history of malignant neoplasm GRANDF ATHER Not available 10/17/2023 09:34:42 Notes:diabetes - grandmother Medical History Condition Response ARTHRITIS Y HEADACHES/MIGRAINES Y USE OF BLOOD THINNERS Y KIDNEY DISEASE Y DIABETES, TYPE Y ALLERGIES/HAYFEVER Y HEARTBURN / REFLUX Y HIGH CHOLESTEROL / HYPERLIPIDEMIA Y ANXIETY DISORDER Y ANEMIA/BLOOD DISORDER Y FIBROMYALGIA Y HEPATITIS / LIVER DISEASE Y URINARY/BLADDER/KIDNEY PROBLEMS Y USE OF NSAIDS Y GOUT Y BACK / NECK PROBLEMS Y DEPRESSION (INCLUDING POST ) Y Gynecological HistoryNo gynecological history recorded. Obstetrics History GPAL:G 0 P 0 0 0 0 Immunizations Vaccine Type Date Status Note Provider Nam e and Address Organization Details Recorded Time Pneumococcal conjugate PCV 13 5 completed Not Available [facility] 09/26/2022 17:13:26 Influenza, high-dose, trivalent, PF 5 completed Not Available [facility] 09/26/2022 17:13:26 Past Encounters Encounter ID Performer Location Encounter Start Date Encounter Closed Date Diagnosis/Indication Diagnosis SNOMED-CT Code Diagnosis ICD10 Code Diagnosis Note [id number] Michael Mccrary DPM [facility] [place] [address] [address] 10/17/2023 09:25:21 10/17/2023 10:14:37 Peripheral vascular disease 319193486 I73.9 obtain noninvasiv e vascular studies for possible procedure Cigarette smoker 6366975 7 F17.210 Recommend discontinu e smoking, patient states she is tryingrevi ewed side effects of smoking Onychomyco sis of toenails 483431007 B35.1 both great toenails Dystrophia unguium 76639 009 L60.3 nails debrided without incident 1 through 10 Diabetic p eripheral neuropathy 464170482 E11.40 Patient educated on neuropathy , diabetes, diabetic diet, and daily foot exams. Patient is to check feet daily for new wounds, blisters, redness to prevent infection and ulceration s to the feet. Patient will return to clinic in 3 months for diabetic foot workup. [id number] Michael Mccrary DPM [facility] [place] [address] [address] 11/14/2023 17:21:47 11/18/2023 10:15:04 Diabetes mellitus 17193203 E11.9 continue diabetic control per PCP recommenda tions Cigarette smoker 2838411 7 F17.210 Recommend discontinu e smoking, patient states she is tryingrevi ewed side effects of smoking Peripheral vascular disease 777804578 I73.9 vascular testing reviewed with the patientrec ommend daily exercisere peat studies in 1 yearrecomm end discontinu e smoking Onychomyco sis of toenails 809983074 B35.1 both great toenails- planned for total nail avulsionsc hedule procedure [id number] Micheal Mccrary DPM [facility] [place] [address] [place] [address] 01/28/2024 15:58:49 01/31/2024 09:55:54 Onychomycosis of toenails 458073708 B35.1 right great toenailtot al nail avulsion performed todayWound care instructio ns givenMonit or for signs of infection at present seek medical attention immediatel yDressing instructio ns reviewed with the patientFol low-up 1 week [id number] Michael Mccrary DPM [facility] [place] [address] [address] 02/04/2024 09:25:49 02/04/2024 11:41:31 Onychomycosis of toenails 369121106 B35.1 right great toenailtot al nail avulsion healingcon tinue daily wound care until healedWoun d care instructio ns givenMonit or for signs of infection at present seek medical attention immediatel yDressing instructio sabas reviewed with the patientFol low-up 3 months [id number] Michael Mccrary DPM [facility] [place] [address] [address] 05/05/2024 14:32:35 05/06/2024 12:50:19 Onychomycosis of toenails 016535660 B35.1 right great toenailtot al nail avulsion healedcont inue ketoconazo le dailynail debrided Follow-up 2-3months [id number] Michael Mccrary DPM [facility] [address] [place] [address] 09/23/2024 14:45:22 09/23/2024 15:53:44 Onychomycosis of toenails 771875513 B35.1 right great toenail- Resolvedto enail fungus left great toenailcon tinue ketoconazo le dailynail debridedpl anned total nail avulsion of left great toenail when patient is availableF ollow-up 2-3months Health Concerns Section Related Observation LastModified by Organization Detai ls LastModified Time None Recorded Concern Status LastModified by Organization Details LastModified Time None Recorded Advance Directives Directive None Recorded Payers Encounter Date Sequence Insurance Name Policy Number Policy Duncan Covered Member ID Duncan Member ID Guarantor Name 11/14/2023 1 [facility] (MEDICARE REPLACEMENT/A DVANTAGE - PPO) [id number] Juaquin L Krissy [id number] Juaquin Krissy 01/28/2024 1 [facility] (MEDICARE REPLACEMENT/A DVANTAGE - PPO) [id number] Juaquin L Krissy [id number] Juaquin Krissy 02/04/2024 1 [facility] (MEDICARE REPLACEMENT/A DVANTAGE - PPO) [id number] Juaquin L Krissy [id number] Juaquin Krissy 05/05/2024 1 [facility] (MEDICARE REPLACEMENT/A DVANTAGE - PPO) [id number] Juaquin L Krissy [id number] Juaquin Krissy 09/23/2024 1 [facility] (MEDICARE REPLACEMENT/A DVANTAGE - PPO) [id number] Juaquin L Krissy [id number] Juaquin Krissy Notes Date Note Type Note Provider Name and Address Organization Details Recorded Time 11/14/2023 text/html . Patient is a 48-year-old female who returns the office to review arterial testing. Patient is avid smoker. Patient was found to have no significant claudication secondary to testing with arterial duplex. Patient would like to proceed with total nail avulsion secondary to onychomycosis of her bilateral great toenails. Patient will be scheduled for the next appointment. Patient understands all risks of the procedure. Patient denies any other pedal complaints. Michael Mccrary DPM [address] [facility], [facility] [address], [place], [address], [place] [employer] [facility] 11/18/2023 09:19:43 01/28/2024 text/html . Patient is a 48-year-old female who returns the office for follow-up on onychomycosis of the right great toenail. Patient states overall she continues have white discoloration under the right great toe. Patient states that the nail is thickened and painful. Patient denies any treatment for this condition. Patient denies any other complaints. Michael Mccrary DPM [address], [place], [address], [employer] 01/29/2024 14:01:52 02/04/2024 text/html . Patient is a 49-year-old female she returns for follow-up on wound healing secondary to toenail avulsion. Patient is 90% healed she denies any significant pain or signs of infection. Patient continues daily wound care. I discussed that she needs to continue the daily wound care for approximately 1 week until the rest of the nail bed is completely healed and then she may discontinue. Patient denies any other complaints. Michael Mccrary DPM [address], [place], [address], [employer] 02/04/2024 10:06:26 05/05/2024 text/html . Patient is a 49-year-old female she returns the office for follow-up on onychomycosis of the great toenail to which she underwent nail avulsion. Patient overall is doing well the nail is regrowing she is having some thickness of the nail bed but the nail is normal in nature. Patient denies any other complaints. Michael Mccrary DPM [address], [place], [address], [employer] [facility] [employer] [facility] 05/05/2024 15:17:20 09/23/2024 text/html . Patient is a 49-year-old female who returns the office for follow-up on toenail avulsion to the right great toenail which is normal. Patient states she is pleased with how the nail is she continues have thickening with discoloration and incurvation of the left great toenail she states that it is problematic but at this time she does not want it removed she states that she will do it later in the summer time. Patient would like to continue topical ketoconazole as she states it seems to have improved somewhat. Patient denies any other complaints. Michael Mccrary DPM [address] [facility] [address], [place], [address], [place] [facility] 09/23/2024 15:27:25 OBGyn Episode No OBEpisode recorded.
--- OUTSIDE RECORDS SUMMARY | 2024-12-13 11:58 | XMS_ITS ---
Author Organization [facility] Address [address] [place] [address] Care Team Providers Care Transit Specialist Name Role Phone Ramon Sylvester MD Primary Care Provider Burak Blue MD Unavailable [phone] Juana Jimenez RN Unavailable [phone] Sylwia García MD Unavailable Igor Yeager DO Unavailable [phone] Cristina Boyer RN Unavailable Cyn Fang NP Unavailable Transplant Episode Kidney Recipient [facility] ([place], [place]) - [facility] Organ Received: Left Kidney Transplanted on 03/09/2019 Marked as Active Follow-up on 03/09/2019 Reason: Transplanted at [facility] Kidney CoordinatorJuana Jimenez RN Fax: N/A Email: N/A [place] Organ Diagnosis Organ Primary Contributory Kidney Diabetes [...] Fax Email Juana Jimenez RN Kidney Coordinator [phone] N/A N/A Cristina Boyer RN Secondary Coordinator Secondary Kidney Coordinator [phone] N/A N/A Burak Blue MD Referring Physician [phone] N/A Kristen Finley Primary Return Agent Airport N/A N/A N/A Jose De Jesus Barrios Secondary Return Agent Airport N/A N/A N/A Diane Salomon Light Bulb Replacer [phone] N/A N/A Juana Jimenez RN Hospice Volunteer [phone] N/A N/A Events Post-Transplant Pre-Transplant Admitted: 03/07/2019 Referred: 10/17/2017 Transplanted: 03/09/2019 Evaluation began: 8 Discharged: 03/12/2019 Committee: 12/08/2018 Center waitlisted: 9 Dialysis History Dialysis History Start End Type Comments Center 01/13/2018 03/09/2019 Peritoneal [facility] Dialysis Center Information Center Phone Fax Address [facility] [phone] # [phone] PROFESSIONAL [facility] [id number]
--- OUTSIDE RECORDS SUMMARY | 2024-12-13 12:23 | XMS_ITS | Referral Summary ---
Author Organization [facility] Address [address] [place] [address] Care Team Providers Care Metalworking Specialist Name Role Phone Ramon Sylvester MD Primary Care Provider Burak Blue MD Unavailable [phone] Juana Jimenez RN Unavailable [phone] Sylwia García MD Unavailable Igor Yeager DO Unavailable Cristina Boyer RN Unavailable [phone] Cyn Fang NP Unavailable Encounters Date Type Department Care Team Description 12/04/2024 3:00 PM CDT Office Visit [facility] Endocrinology Metabolism and Lipid [address] [place] [address] [place] [address] Gavi Cervantes NP Type 1 diabetes mellitus with other specified complication (HCC) (Primary Dx); care home current use of insulin (HCC); Hyperlipidemia, unspecified hyperlipidemia type 11/17/2024 3:00 PM CDT Office Visit [facility] [address] [place] [address] Ramon Sylvester MD Visit for screening mammogram (Primary Dx); 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, unspecified laterality (HCC); Renal transplant recipient; Type 1 diabetes mellitus with other specified complication (HCC); Essential hypertension; Chronic obstructive pulmonary disease, unspecified COPD type ([facility]) 11/05/2024 Results Follow-Up [facility] [address] [place] [address] Ramon Sylvester MD Magnesium 11/03/2024 Orders Only [facility] Nephrology [address] [place] [address] [place] [address] Jose Rafael Ramos MD 09/25/2024 Orders Only [facility] Endocrinology Metabolism and Lipid [address] [place] [address] [place] [address] Drew Godoy MD 09/25/2024 Telephone [facility] Endocrinology Metabolism and Lipid [address] [place] [address] [place] [address] Patricia Ravi, buyer agent Freesetyle lynda 3 plus refills from Last [...] 3 tablets (3 mg total) by mouth therapeutic specialist before breakfast DO NOT TAKE ON 11/28, [...] 3 Active blood-glucose meter,continuous (FreeStyle Lynda 3 [place]) [facility] Use as directed to check blood sugar [...] different from the original. Lab: [facility] P- [phone] Standing Orders q-monthly FK, q3-HgbA1C. Exp. 06/16/25 Home Health: [facility] Home Care Local Pharmacy:[place] [address] Specialty Pharmacy: [facility] Problem Noted Date Diagnosed Date Pancreatic insufficiency 07/11/2024 Localized edema 01/22/2024 Assessment & Plan (01/22/2024 4:11 PM CDT): Continue furosemide Abnormal urinalysis/ UTI 11/26/2023 Assessment & Plan (11/29/2023 12:12 AM CDT): Reports experiencing burning sensation during urination and pain during urination for more than 2-3 months and has had multiple visit [facility] [place] with multiple abnormal urinalyses and recent cultures [...] home) Assessment & Plan (06/25/2023 3:24 PM TRAFFIC DIVISION COMMANDING OFFICER): Continue Ambien Assessment & Plan (02/24/2023 2:03 AM CDT): Cont home ambien PRN, reduce 10mg -> 5mg Liver lesion, right lobe 10/06/2022 care home current 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 Change Lantus from hs to AM to decrease overnight lows. Assessment & Plan (11/05/2022 9:19 AM CDT): Need to minimize risk of hypoglycemia. Assessment & Plan (06/07/2022 5:23 PM TRAFFIC DIVISION COMMANDING OFFICER): Now improved, but still need to minimize [...] hypoglycemia Assessment & Plan (08/08/2021 3:28 PM TRAFFIC DIVISION COMMANDING OFFICER): -Affects post meal glucose readings -Closely monitor [...] 3:25 PM CDT): S/p right nephrectomy of [place] right kidney. POD1 N/V and Abd pain. [...] glucoses. Assessment & Plan (06/07/2022 5:24 PM TRAFFIC DIVISION COMMANDING OFFICER): This affects her ability to see a [...] Stable. Assessment & Plan (06/03/2023 5:34 AM TRAFFIC DIVISION COMMANDING OFFICER): Previous history of smoking. - Continue home inhalers and singulair. Essential hypertension 11/15/2019 Assessment & Plan (11/17/2024 3:59 PM CDT): BP at target Assessment & Plan (06/03/2023 5:41 AM TRAFFIC DIVISION COMMANDING OFFICER): Hold amlodipine for soft blood pressures. Assessment [...] 11/15/2019 Assessment & Plan (06/03/2023 5:43 AM TRAFFIC DIVISION COMMANDING OFFICER): Continue home statin. Assessment & Plan (02/24/2023 2:01 AM CDT): Cont home atorva 20mg. Assessment & Plan (11/05/2022 9:21 AM CDT): On atorvastatin 20mg. Optimize glycemic control. 10/2022- TG 173, HDL 66, LDL 66 Assessment & Plan (06/07/2022 5:29 PM TRAFFIC DIVISION COMMANDING OFFICER): Continue statin therapy (atorvastatin 20mg) and optimize [...] stable. 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 Assessment & Plan (06/07/2022 5:38 PM TRAFFIC DIVISION COMMANDING OFFICER): Hemoglobin A1c increased to 8.5% on 05/22/2022. [...] insulin. Assessment & Plan (08/08/2021 3:28 PM TRAFFIC DIVISION COMMANDING OFFICER): -Currently taking MDI and using Lynda -A1C [...] control. Assessment & Plan (06/07/2022 5:25 PM TRAFFIC DIVISION COMMANDING OFFICER): Managed by Dr. Bhatt. Needs optimal glycemic control. Assessment & Plan (03/23/2022 9:06 AM CDT): Managed by Dr. Bhatt. Needs optimal glycemic control Assessment & Plan (07/11/2020 5:49 PM TRAFFIC DIVISION COMMANDING OFFICER): Resolved following course of antiviral therapy. 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 Assessment & Plan (06/07/2022 5:25 PM TRAFFIC DIVISION COMMANDING OFFICER): Taking daily immunosuppressants which complicate glycemic management. 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 I encouraged her to see an filter operator again just to make sure that she does or does not need ongoing follow-up Assessment & Plan (08/06/2021 3:07 PM TRAFFIC DIVISION COMMANDING OFFICER): -Patient is legally blind -CGM allows for increase in safety as there is audile alarm for high and low blood sugars Resolved Problems Problem Noted Date Diagnosed Date Resolved Date Ketosis 06/03/2023 06/25/2023 Assessment & Plan (06/03/2023 5:41 AM TRAFFIC DIVISION COMMANDING OFFICER): Patient presenting with nausea and vomiting that [...] 06/25/2023 Assessment & Plan (06/03/2023 5:45 AM TRAFFIC DIVISION COMMANDING OFFICER): Presenting with 1 week history of [place] [...] (03/28/2021): Added automatically from request for surgery [id number] Colon cancer screening 03/28/202104/19 Overview (03/28/2021): Added automatically from request for surgery [id number] Gastroparesis 02/23/2021 06/25/2023 Assessment & Plan (02/20/2023 [...] 02/23/2021 Assessment & Plan (08/08/2021 3:29 PM TRAFFIC DIVISION COMMANDING OFFICER): -BP today is 132/78 -Will continue same [...] or scopolamine patch. She does not meet [facility] criteria for use of palonosetron. -ordered stool [...] 08/03/2020 Assessment & Plan (08/03/2020 3:05 PM TRAFFIC DIVISION COMMANDING OFFICER): Plan is to give Augmentin 875/125 b.i.d. [...] Immunization Administration Dates Next Due COVID-19 mRNA ([employer]) 0.3 m L (30 mcg) vaccine (12 [...] drink = 0.6 oz pur e alcohol) [facility] Utilities Answer Date Recorded In the [...] often do you attend chur ch or episcopalian services? Patient unable to answer 11/28/2023 Do you belong to any clubs o r organizations such as moravian groups, unions, fraternal or athletic groups, or [...] place to sleep or slept in a fci (including now)? Patient unable to answer 11/28/2023 Personal Safety Answer Date Recorded Have you ever been in or are you currently in a harmful physical or emotional relationship or is someone making you feel afraid or unsafe? 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 Not on file Not on file Not [...] disease) (HCC) Medical Devices Explanted Type Area Personal Carer Device Identifier Shelf Expiration Date Model / Serial / Lot Circon-Surgit ek [id number] 6fr 20cm 100cm 1 Step Insert Push Catheter [place] Suture - [id number] Implanted:Qty : 1 on 03/09/2019 by Tommie Cortes MD at [facility] Explanted:Qty : 1 on 04/06/2019 by Ted Farrell NP Stent Right: Ureter [employer]con-Surgitek [id number] 02/14/2023 [id number] / / [id number] Description:Transplanted Ure ter Procedures Procedure Name Priority Date/Time Associated Diagnosis Comments POCT GLUCOSE 36870 Routine 12/04/2024 3: 03 PM CDT Type [...] CREATININE RATIO, URINE Routine 07/14/2024 8:26 AM TRAFFIC DIVISION COMMANDING OFFICER Type 1 diabetes mellitus with other specified [...] POCT glucose (12/04/2024 3:03 PM CDT) Pathologist [facility] Glucose Blood, POC 253 Normal Fasting 70 - 100, Random <200 mg/dL Blood 12/04/2024 3:03 PM CDT Gavi Cervantes SALES OFFICE COORDINATOR POINT OF CARE TEST ORDERA BLES Final Result * (ABNORMAL) POCT hemoglobin A1c (12/04/2024 3:03 PM CDT) Pathologist [facility] Hemoglobin A1C, POC 9.4(A) 4.0 - 5.6 % Blood 12/04/2024 3:03 PM CDT Gavi Cervantes SALES OFFICE COORDINATOR POINT OF CARE TEST ORDERA BLES Final Result * Magnesium (11/03/2024 8:13 AM CDT) [facility] Magnesium 2.0 1.5 - 2.5 mg/dL [facility] Blood 11/03/2024 8:13 AM CDT 11/03/2024 8:14 AM CDT Narrative [facility] - 11/04/2024 3:56 AM CDT FASTING:YES FASTING: YES Ramon Sylvester MD LAB BLOOD ORDERABLES Final Re sult [facility] [address] [place] [address] * (ABNORMAL) Tacrolimus, Highly Sensitive, LC/MS/MS (11/03/2024 8:12 AM CDT) Pathologist [facility] Tacrolimus, Highly Sensitive, LC/MS/MS 4.2(L) mcg/L [facility] [...] ORDERABL ES Final Result Performing Organization Address City/[facility]/ZIP Co de Phone Number [facility] [address] [place] [address] * COPY(IES) SENT TO: (11/03/2024 8:12 AM CDT) COPY(IES) SENT TO: [facility] Comment: [facility] KIDNEY - COPY TO [place] [address] [place] [address] 11/03/2024 8:12 AM CDT 11/03/2024 8:12 AM CDT Narrative [facility] - 11/05/2024 11:20 AM CDT PAE FASTING:YES FASTING: YES Jose Rafael Ramos MD LAB BLOOD ORDERABL ES Final Result Performing Organization Address City/[facility]/ZIP Co de Phone Number [facility] * (ABNORMAL) [...] BLOOD ORDERABL ES Final Result [facility] [address] [place] [address] * (ABNORMAL) Renal function panel (11/03/2024 8:12 AM CDT) Pathologist [facility] Glucose 332(H) 65 - 99 mg/dL [facility] [...] BLOOD ORDERABL ES Final Result [facility] [address] [place] [address] * Albumin Creatinine Ratio, Urine (07/14/2024 8:26 AM TRAFFIC DIVISION COMMANDING OFFICER) Creatinine, ur 95 20 - 275 mg/dL [...] a diagnostic category. Urine 07/14/2024 8:26 AM TRAFFIC DIVISION COMMANDING OFFICER 07/14/2024 8:26 AM TRAFFIC DIVISION COMMANDING OFFICER Drew Godoy MD LAB URINE ORDERABLES Final Res ult [facility] [address] [place] [address] * (ABNORMAL) Lipid panel (05/26/2024) SCRIBED Cholesterol, [...] Female Attending MD: Cricket Santamaria M.D. Room: [facility] ENDOSCOPY ROOM 8 Note Status: Finalized [...] The scope was passed under direct vision.The [id number] endoscope was introduced through the anus and advanced to the cecum, identified by appendiceal orifice and ileocecal valve. The colonoscopy was performed without difficulty. The patient tolerated the procedure well. The qualityof the bowel preparation was evaluated using the BBPS (Delmar Bowel Preparation Scale) with scores of:Right Colon [...] following this procedure please call my office [phone]). After hours and eveningsplease call [phone] and speak to the GI fellow augustin. [...] On: 05/08/2022 12:35 PM Recognized by the [employer] for promoting quality in endoscopy Cricket Santamaria MD ENDOSCOPY PROCEDURES Fi nal Result * TSH (10/25/2020 2:58 PM CDT) Pathologist [facility] TSH 0.671 0.450 - 4.500 uIU/mL [facility] - 01 Blood specimen (specimen) 10/25/2020 2:58 PM CDT 10/25/2020 Narrative [facility] - 10/26/2020 8:15 AM CDT Performed at: [address] [place] [id number] Tie Maker: Jean-Claude Snider PhD, Phone: [phone] Ramon Sylvester MD LAB BLOOD ORDERABLES Final Re sult [facility] - 01 * Hepatitis C (HCV) RNA PCR, quantitative (03/02/2020 4:44 PM CDT) [facility] HCV RNA result Not Detected [facility] Comment: Interpretive data: The quantifiable range of this assay is 15 IU/mL to 100,000,000 IU/mL (1.18 log IU/mL to 8.00 log IU/mL). Testing was performed by the KAR[employer] AmpliPrep/KARLY TaqMan HCV Test version 2.0 ([employer] Testing performed at [facility] Current Interpretive Data was last revised on 2015. Blood specimen (specimen) 03/02/2020 4:44 PM CDT 03/02/2020 5:00 PM CDT Malcolm Mann MD LAB MICROBIOLOGY - GENERA L ORDERABLES Final Result [facility] Department [place] [address] from Last 3 Months or Most Recently Relevant to Health Maintenance Insurance [facility] MEDICARE ADVANTAGE [facility] MEDICARE IDPA [facility] MEDICARE ADVANTAGE [facility] MEDICARE ADVANTAGE Advance Directives For more information, please contact: [phone] * Full Code (Latest Code Status on [...] 11:12 AM 05/08/2022 5:48 PM Care Teams Metalworking Specialist Relationship Specialty Start Date End Date Ramon Sylvester MD PCP - General 08/31/16 Burak Blue MD Consulting Physician Nephrology 04/21/18 Juana Jimenez RN Sample Supervisor 03/09/19 Sylwia García MD Referring Physician Endocrinology Diabetes & Metabolism 03/21/20 Igor Yeager DO Consulting Physician Urology 04/27/20 Cristina Boyer RN [address] [address] Secondary Kidney Coordinator Transplant 08/25/20 Rehg, Cyn Marmolejo NP [address] [place] [address] Nurse Practitioner Nurse Practitioner 12/06/21
--- OUTSIDE RECORDS SUMMARY | 2024-12-13 12:23 | XMS_ITS ---
Author Organization [facility] Address [address] [place] [address] Care Team Providers Care Shirring Tender Name Role Phone Ramon Sylvester MD Primary Care Provider [phone] Burak Blue MD Unavailable [phone] Juana Jimenez RN Unavailable [phone] Sylwia García MD Unavailable Igor Yeager DO Unavailable Cristina Boyer RN Unavailable Cyn Fang NP Unavailable Active Problems Patient Care Coordination No te Formatting of this note migh t be different from the original. Lab: [facility] P- [phone] Standing Orders q-monthly FK, q3-HgbA1C. Exp. 06/16/25 Home Health: [facility] Home Care Local Pharmacy:[facility] [address] Specialty Pharmacy: [facility] Problem Noted Date Diagnosed Date Pancreatic insufficiency 07/11/2024 Localized edema 01/22/2024 Assessment & Plan (01/22/2024 4:11 PM CDT): Continue furosemide Abnormal urinalysis/ UTI 11/26/2023 Assessment & Plan (11/29/2023 12:12 AM CDT): Reports experiencing burning sensation during urination and pain during urination for more than 2-3 months and has had multiple visit [facility] [place] with multiple abnormal [...] home) Assessment & Plan (06/25/2023 3:24 PM PIANO REFINISHER): Continue Ambien Assessment & Plan (02/24/2023 2:03 AM CDT): Cont home ambien PRN, reduce 10mg -> 5mg Liver lesion, right lobe 10/06/2022 alf current 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 Change Lantus from hs to AM to decrease overnight lows. Assessment & Plan (11/05/2022 9:19 AM CDT): Need to minimize risk of hypoglycemia. Assessment & Plan (06/07/2022 5:23 PM PIANO REFINISHER): Now improved, but still need to minimize [...] hypoglycemia Assessment & Plan (08/08/2021 3:28 PM PIANO REFINISHER): -Affects post meal glucose readings -Closely monitor [...] 3:25 PM CDT): S/p right nephrectomy of [place] right kidney. POD1 N/V and Abd pain. [...] glucoses. Assessment & Plan (06/07/2022 5:24 PM PIANO REFINISHER): This affects her ability to see a [...] Stable. Assessment & Plan (06/03/2023 5:34 AM PIANO REFINISHER): Previous history of smoking. - Continue home inhalers and singulair. Essential hypertension 11/15/2019 Assessment & Plan (11/17/2024 3:59 PM CDT): BP at target Assessment & Plan (06/03/2023 5:41 AM PIANO REFINISHER): Hold amlodipine for soft blood pressures. Assessment [...] 11/15/2019 Assessment & Plan (06/03/2023 5:43 AM PIANO REFINISHER): Continue home statin. Assessment & Plan (02/24/2023 2:01 AM CDT): Cont home atorva 20mg. Assessment & Plan (11/05/2022 9:21 AM CDT): On atorvastatin 20mg. Optimize glycemic control. 10/2022- TG 173, HDL 66, LDL 66 Assessment & Plan (06/07/2022 5:29 PM PIANO REFINISHER): Continue statin therapy (atorvastatin 20mg) and optimize [...] stable. Assessment & Plan (06/03/2023 5:34 AM PIANO REFINISHER): - Continue home sertraline, nightly mirtazapine and [...] transplant evaluated pt in ED, following as nurse consultant -per recs, will change envarsus to [...] 11/17/2018 Assessment & Plan (06/25/2023 3:25 PM PIANO REFINISHER): Continue sertraline and Xanax Assessment & Plan (06/03/2023 5:33 AM PIANO REFINISHER): Continue home xanax PRN Assessment & Plan [...] Monitor Assessment & Plan (06/03/2023 5:41 AM PIANO REFINISHER): At home on glargine 28 units nightly [...] diabetes. Assessment & Plan (06/07/2022 5:38 PM PIANO REFINISHER): Hemoglobin A1c increased to 8.5% on 05/22/2022. [...] insulin. Assessment & Plan (08/08/2021 3:28 PM PIANO REFINISHER): -Currently taking MDI and using Lynda -A1C [...] control. Assessment & Plan (06/07/2022 5:25 PM PIANO REFINISHER): Managed by Dr. Bhatt. Needs optimal glycemic control. Assessment & Plan (03/23/2022 9:06 AM CDT): Managed by Dr. Bhatt. Needs optimal glycemic control Assessment & Plan (07/11/2020 5:49 PM PIANO REFINISHER): Resolved following course of antiviral therapy. 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 Assessment & Plan (06/07/2022 5:25 PM PIANO REFINISHER): Taking daily immunosuppressants which complicate glycemic management. 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 I encouraged her to see an purchasing associate again just to make sure that she does or does not need ongoing follow-up Assessment & Plan (08/06/2021 3:07 PM PIANO REFINISHER): -Patient is legally blind -CGM allows for [...] 06/25/2023 Assessment & Plan (06/03/2023 5:41 AM PIANO REFINISHER): Patient presenting with nausea and vomiting that [...] 06/25/2023 Assessment & Plan (06/03/2023 5:45 AM PIANO REFINISHER): Presenting with 1 week history of [place] [...] (03/28/2021): Added automatically from request for surgery [id number] Colon cancer screening 03/28/202104/19 Overview (03/28/2021): Added automatically from request for surgery [id number] Gastroparesis 02/23/2021 06/25/2023 Assessment & Plan (02/20/2023 [...] 02/23/2021 Assessment & Plan (08/08/2021 3:29 PM PIANO REFINISHER): -BP today is 132/78 -Will continue same [...] or scopolamine patch. She does not meet [facility] criteria for use of palonosetron. -Check Cdiff, stool cx if continues to have diarrhea Acute cystitis without hematuria 12/22/2020 06/25/2023 Assessment & Plan (12/22/2020 2:21 PM CDT): Repeat UA, C & S in 2 weeks after completing Bactrim DS Work note for this week Acute otitis media 08/03/2020 Assessment & Plan (08/03/2020 3:05 PM PIANO REFINISHER): Plan is to give Augmentin 875/125 b.i.d. [...]
--- OUTSIDE RECORDS SUMMARY | 2024-12-13 12:24 | XMS_ITS | Clinical Summary ---
Author Organization [facility] Address [address] [place] [address] Care Team Providers Care Hydraulic Rockbreaker Operator Name Role Phone Ramon Sylvester MD Primary Care Provider Burak Blue MD Unavailable [phone] Juana Jimenez RN Unavailable [phone] Sylwia García MD Unavailable Igor Yeager DO Unavailable [phone] Cristina Boyer RN Unavailable Cyn Fang NP Unavailable [phone] Allergies Active Allergy Reactions Criticality Noted Date [...] 3 tablets (3 mg total) by mouth early childhood education coordinator before breakfast DO NOT TAKE ON 11/28, [...] 3 Active blood-glucose meter,continuous (FreeStyle Lynda 3 [place]) [facility] Use as directed to check blood sugar [...] different from the original. Lab: [facility] P- [phone] Standing Orders q-monthly FK, q3-HgbA1C. Exp. 06/16/25 Home Health: [facility] Home Care Local Pharmacy:[place] [address] Specialty Pharmacy: [facility] Problem Noted Date Diagnosed Date Pancreatic insufficiency 07/11/2024 Localized edema 01/22/2024 Assessment & Plan (01/22/2024 4:11 PM CDT): Continue furosemide Abnormal urinalysis/ UTI 11/26/2023 Assessment & Plan (11/29/2023 12:12 AM CDT): Reports experiencing burning sensation during urination and pain during urination for more than 2-3 months and has had multiple visit at [facility] in [place] with multiple abnormal urinalyses and [...] home) Assessment & Plan (06/25/2023 3:24 PM BLIND HANGER): Continue Ambien Assessment & Plan (02/24/2023 2:03 AM CDT): Cont home ambien PRN, reduce 10mg -> 5mg Liver lesion, right lobe 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 Change Lantus from hs to AM to decrease overnight lows. Assessment & Plan (11/05/2022 9:19 AM CDT): Need to minimize risk of hypoglycemia. Assessment & Plan (06/07/2022 5:23 PM BLIND HANGER): Now improved, but still need to minimize [...] hypoglycemia Assessment & Plan (08/08/2021 3:28 PM BLIND HANGER): -Affects post meal glucose readings -Closely monitor [...] 3:25 PM CDT): S/p right nephrectomy of [place] right kidney. POD1 N/V and Abd pain. [...] glucoses. Assessment & Plan (06/07/2022 5:24 PM BLIND HANGER): This affects her ability to see a [...] Stable. Assessment & Plan (06/03/2023 5:34 AM BLIND HANGER): Previous history of smoking. - Continue home inhalers and singulair. Essential hypertension 11/15/2019 Assessment & Plan (11/17/2024 3:59 PM CDT): BP at target Assessment & Plan (06/03/2023 5:41 AM BLIND HANGER): Hold amlodipine for soft blood pressures. Assessment [...] 11/15/2019 Assessment & Plan (06/03/2023 5:43 AM BLIND HANGER): Continue home statin. Assessment & Plan (02/24/2023 2:01 AM CDT): Cont home atorva 20mg. Assessment & Plan (11/05/2022 9:21 AM CDT): On atorvastatin 20mg. Optimize glycemic control. 10/2022- TG 173, HDL 66, LDL 66 Assessment & Plan (06/07/2022 5:29 PM BLIND HANGER): Continue statin therapy (atorvastatin 20mg) and optimize [...] stable. 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 Assessment & Plan (06/07/2022 5:38 PM BLIND HANGER): Hemoglobin A1c increased to 8.5% on 05/22/2022. [...] insulin. Assessment & Plan (08/08/2021 3:28 PM BLIND HANGER): -Currently taking MDI and using Lynda -A1C [...] control. Assessment & Plan (06/07/2022 5:25 PM BLIND HANGER): Managed by Dr. Bhatt. Needs optimal glycemic control. Assessment & Plan (03/23/2022 9:06 AM CDT): Managed by Dr. Bhatt. Needs optimal glycemic control Assessment & Plan (07/11/2020 5:49 PM BLIND HANGER): Resolved following course of antiviral therapy. 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 Assessment & Plan (06/07/2022 5:25 PM BLIND HANGER): Taking daily immunosuppressants which complicate glycemic management. 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 I encouraged her to see an pediatric oncologist again just to make sure that she does or does not need ongoing follow-up Assessment & Plan (08/06/2021 3:07 PM BLIND HANGER): -Patient is legally blind -CGM allows for increase in safety as there is audile alarm for high and low blood sugars Resolved Problems Problem Noted Date Diagnosed Date Resolved Date Ketosis 06/03/2023 06/25/2023 Assessment & Plan (06/03/2023 5:41 AM BLIND HANGER): Patient presenting with nausea and vomiting that [...] 06/25/2023 Assessment & Plan (06/03/2023 5:45 AM BLIND HANGER): Presenting with 1 week history of UT [...] (03/28/2021): Added automatically from request for surgery [id number] Colon cancer screening 03/28/202104/19 Overview (03/28/2021): Added automatically from request for surgery [id number] Gastroparesis 02/23/2021 06/25/2023 Assessment & Plan (02/20/2023 [...] 02/23/2021 Assessment & Plan (08/08/2021 3:29 PM BLIND HANGER): -BP today is 132/78 -Will continue same [...] 08/03/2020 Assessment & Plan (08/03/2020 3:05 PM BLIND HANGER): Plan is to give Augmentin 875/125 b.i.d. 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, unspecified laterality (HCC); Renal transplant recipient; Type 1 diabetes mellitus with other specified complication (HCC); Essential hypertension; Chronic obstructive pulmonary disease, unspecified COPD type (HCC) 11/05/2024 Results Follow-Up [facility] [address] [place] [address] [address] [address] Ramon Sylvester MD [facility] 11/03/2024 Orders Only [facility] Nephrology [address]th [place] [address] [place] [address] Jose Rafael Ramos MD 09/25/2024 Orders Only [facility] Endocrinology Metabolism and Lipid [address]th [place] [address] [place] [phone] Drew Godoy MD 09/25/2024 Telephone [facility] Endocrinology Metabolism and Lipid [address]th [place] [address] [place] [phone] Patricia Ravi, [facility] F[facility]le lynda 3 plus refills from Last 3 Months Immunizations Immunization Administration Dates Next Due COVID-19 mRNA (Medalogix) 0.3 m L (30 mcg) vaccine (12 [...] drink = 0.6 oz pur e alcohol) [facility] [employer] Answer Date Recorded In the past 12 months has [employer], gas, oil, or water [employer] threatened to shut off services in your [...] How often do you attend chur or buddhism services? Patient unable to answer 11/28/2023 Do you belong to any clubs o r organizations such as hinduism groups, unions, fraternal or athletic groups, or [...] place to sleep or slept in a fdc (including now)? Patient unable to answer 11/28/2023 Personal Safety Answer Date Recorded Have you ever been in or are you currently in a harmful physical or emotional relationship or is someone making you feel afraid or unsafe? 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 Not on file Not on file Not [...] history exists Medical Devices Explanted Type Area Medical Photographer Device Identifier Shelf Expiration Date Model / Serial / Lot Whit-Surgit ek [id number] 6fr 20cm 100cm 1 Step Insert Push Catheter [employer] Suture - [id number] Implanted:Qty : 1 on 03/09/2019 by Tommie Cortes MD at [facility] Explanted:Qty : 1 on 04/06/2019 by Ted Farrell NP Stent Right: Ureter Circon-Surgitek [id number] 02/14/2023 [id number] / / [id number] Description:Transplanted Ure ter Procedures Procedure Name Priority Date/Time Associated Diagnosis Comments POCT GLUCOSE [id number] Routine 12/04/2024 3: 03 PM CDT Type [...] CREATININE RATIO, URINE Routine 07/14/2024 8:26 AM BLIND HANGER Type 1 diabetes mellitus with other specified [...] Blood 12/04/2024 3:03 PM CDT Gavi Cervantes ENGINEERING TEST SPECIALIST POINT OF CARE TEST ORDERA BLES Final [...] BLOOD ORDERABLES Final Re sult [facility] [address] [place] [address] * (ABNORMAL) Tacrolimus, Highly Sensitive, LC/MS/MS (11/03/2024 [...] ORDERABL ES Final Result Performing Organization Address [facility]/ZIP Co de Phone Number [facility] [address] [place] [address] * COPY(IES) SENT TO: (11/03/2024 8:12 AM CDT) [facility] COPY(IES) SENT TO: [facility] Comment: [facility] - COPY TO [facility] [address] [place] [address] 11/03/2024 8:12 AM CDT 11/03/2024 8:12 AM CDT Narrative [facility] - 11/05/2024 11:20 AM CDT PAE FASTING:YES FASTING: YES Jose Rafael Ramos MD LAB BLOOD ORDERABL ES Final Result [facility] * (ABNORMAL) CBC with auto differential (11/03/2024 8:12 AM CDT) [facility] WBC 8.1 3.8 - 10.8 Thousand/u [...] BLOOD ORDERABL ES Final Result [facility] [address] [place] [address] * (ABNORMAL) Renal function panel (11/03/2024 8:12 [...] BLOOD ORDERABL ES Final Result [facility] [address] [place] [address] * Albumin Creatinine Ratio, Urine (07/14/2024 8:26 AM BLIND HANGER) Creatinine, ur 95 20 - 275 mg/dL [...] a diagnostic category. Urine 07/14/2024 8:26 AM BLIND HANGER 07/14/2024 8:26 AM BLIND HANGER Drew Godoy MD LAB URINE ORDERABLES Final Res ult [facility] [address] [place] [address] * (ABNORMAL) Lipid panel (05/26/2024) SCRIBED Cholesterol, Total 164 140 - 199 TXP NO LA B FOUND SCRIBED HDL 59 40 TXP NO L AB FOUND SCRIBED LDL 67 0 - 130 TXP NO L AB FOUND SCRIBED Triglycerides 192(A) 0 - 150 TXP NO LAB FOUND Blood 05/26/2024 Historical Provider LAB BLOOD ORDERABLES Delmi l Result Performing Organization Address [facility] Co de Phone Number TXP NO LAB [...] Female Attending MD: Cricket Santamaria M.D. Room: [facility] ENDOSCOPY ROOM 8 Note Status: Finalized [...] The scope was passed under direct vision.The [id number] endoscope was introduced through the anus and advanced to the cecum, identified by appendiceal orifice and ileocecal valve. The colonoscopy was performed without difficulty. The patient tolerated the procedure well. The qualityof the bowel preparation was evaluated using the BBPS ([place] Bowel Preparation Scale) with scores of:Right Colon [...] following this procedure please call my office [phone]). After hours and eveningsplease call [phone] and speak to the GI fellow oncmartin. [...] On: 05/08/2022 12:35 PM Recognized by the [employer] for promoting quality in endoscopy Cricket Santamaria MD ENDOSCOPY PROCEDURES Fi nal Result * TSH (10/25/2020 2:58 PM CDT) [facility] TSH 0.671 0.450 - 4.500 uIU/mL [facility] - 01 Blood specimen (specimen) 10/25/2020 2:58 PM CDT 10/25/2020 Narrative [facility] - 10/26/2020 8:15 AM CDT Performed at: - [address] [id number] Uptwister Tender: Jean-Claude Snider PhD, Phone: [phone] Raomn Sylvester MD LAB BLOOD ORDERABLES Final Re sult [facility] - 01 * Hepatitis C (HCV) RNA PCR, quantitative (03/02/2020 4:44 PM CDT) [facility] HCV RNA result Not Detected [facility] [place] Comment: Interpretive data: The quantifiable range of this assay is 15 IU/mL to 100,000,000 IU/mL (1.18 log IU/mL to 8.00 log IU/mL). Testing was performed by the KAR[employer] AmpliPrep/KARLY TaqMan HCV Test version 2.0 ([employer] Testing performed at [facility] Current Interpretive Data was last revised on 2015. Blood specimen (specimen) 03/02/2020 4:44 PM CDT 03/02/2020 5:00 PM CDT Malcolm Mann MD LAB MICROBIOLOGY - GENERA L ORDERABLES Final Result [facility] Department [place] [address] from Last 3 Months or Most Recently Relevant to Health Maintenance Insurance [facility] MEDICARE ADVANTAGE [facility] MEDICARE [facility] Address: [address] [address] [place] [address] [facility] UHC MEDICARE ADVANTAGE [facility] MEDICARE ADVANTAGE Advance Directives For more information, please contact: [phone] * Full Code (Latest Code Status on [...] 11:12 AM 05/08/2022 5:48 PM Care Teams Hydraulic Rockbreaker Operator Relationship Specialty Start Date End Date Ramon Sylvester MD PCP - General 08/31/16 Burak Blue MD Consulting Physician Nephrology 04/21/18 Juana Jimenez RN Fraud Manager 03/09/19 Sylwia García MD Referring Physician Endocrinology Diabetes & Metabolism 03/21/20 Igor Yeager DO Consulting Physician Urology 04/27/20 Cristina Boyer RN [address] [address] Secondary Kidney Coordinator Transplant 08/25/20 Cyn Fang NP [address] [address] Nurse Practitioner Nurse Practitioner 12/06/21
--- OUTSIDE RECORDS SUMMARY | 2024-12-13 12:24 | XMS_ITS | CONTINUITY OF CARE DOCUMENT ---
Author Name ricci wynne Address Unknown Organization [facility] Address [address] [place] [address] Phone [phone] Care Team Providers Care Whistle Punk Name Role Phone Luis F Bansal MD Unavailable Luis F Bansal MD Unavailable INSURANCE PROVIDERS Payer name Policy type / Coverage type [place] [employer] party ID HEALTHCARE AND FAMILY SERVICES Medicaid 3 [id number] [facility] CHRONIC COMPLETE ASSURE (PPO C-SNP) Medicare [id number]
--- OUTSIDE RECORDS SUMMARY | 2024-12-13 12:24 | XMS_ITS | Encounter Summary ---
Author Organization [facility] Health Address [address] [place] [address] Care Team Providers Care Director Patient Name Role Phone Ramon Sylvester MD Primary Care Provider [phone] Ramon Sylvester MD Unavailable [phone] Encounter Details Date Type Department Care Team (Late st Contact Info) Description 12/11/2017 [facility] Outpatient Visit [facility] [address] [place] [address] [place] [address] [address] Social History Tobacco Use Types [...] on filedocumented in this encounter Care Teams Director Patient Relationship Specialty Start Date End Date Ramon Sylvester MD PCP - General Internal Medicine 10/19/16 Ramon Sylvester MD Internal Medicine 10/19/16 documented as of this encounter
--- OUTSIDE RECORDS SUMMARY | 2024-12-13 12:24 | XMS_ITS | Clinical Summary ---
Author Organization [facility] Address [address] [place] [address] Care Team Providers Care Furnace Repairer Name Role Phone Ramon Sylvester MD Primary Care Provider Ramon Sylvester MD Unavailable [phone] Source Comments [facility],non-owned Affiliates and Associated Physician Practices is amultiple site organization consisting of ambulatory clinics and hospital sitesin [place], [place], [place] and [place]. This disclosure is being madepursuant to the Care Everywhere program and may not contain all information available regarding this patient. Last updated 18.[facility] Allergies Active Allergy Reactions Criticality Noted Date [...] MCG/ACT nasal sprayIndicatio ns:Nasal Signs and Symptoms Trout 2 Sprays into each nostril once daily [...] age to complete this topic Insurance MEDICARE [facility] Care Teams Furnace Repairer Relationship Specialty Start Date End Date Ramon Sylvester MD PCP - General Internal Medicine 10/19/16 Ramon Sylvester MD Internal Medicine 10/19/16
--- OUTSIDE RECORDS SUMMARY | 2024-12-13 12:24 | XMS_ITS ---
Author Organization [facility] Address [address] [place] [address] Care Team Providers Care Sales Agent Insurance Name Role Phone Ramon Sylvester MD Primary Care Provider [phone] Burak Blue MD Unavailable Juana Jimenez RN Unavailable Sylwia García MD Unavailable Igor Yeager DO Unavailable Cristina Boyer RN Unavailable Cyn Fang NP Unavailable [phone] Transplant Episode Kidney Recipient [facility] ([place], [place]) - [facility] Organ Received: Left Kidney Transplanted on 03/09/2019 Marked as Active Follow-up on 03/09/2019 Reason: Transplanted at [facility] Kidney CoordinatorJuana Jimenez RN Fax: N/A Email: N/A Jamul Organ Diagnosis Organ Primary Contributory Kidney Diabetes [...] Fax Email Juana Jimenez RN Kidney Coordinator [phone] N/A N/A Cristina Boyer RN Secondary Coordinator Secondary Kidney Coordinator [phone] N/A N/A Burak Blue MD Referring Physician [phone] N/A Kristen Finley Primary Experimental Box Tester N/A N/A N/A Jose De Jesus Barrios Secondary Experimental Box Tester N/A N/A N/A Diane Salomon Kick Boxer [phone] N/A N/A Juana Jimenez RN Marking Stitcher [phone] N/A N/A Events Post-Transplant Pre-Transplant Admitted: 03/07/2019 Referred: 10/17/2017 Transplanted: 03/09/2019 Evaluation began: 8 Discharged: 03/12/2019 Committee: 12/08/2018 Center waitlisted: 9 Dialysis History Dialysis History Start End Type Comments Center 01/13/2018 03/09/2019 Peritoneal [facility] Dialysis Center Information Center Phone Fax Address [facility] [phone] # [address] [employer] [facility] [address]
[2024-12-13] MEDS: ONDANSETRON INJ 4 MG/2 ML VIAL IV PUSH ×2 (12:38→17:17)
[2024-12-13] MEDS: SODIUM CHLORIDE 0.9% IV 1,000 ML 999 ML IV CONT ×3 (12:38→22:00)
[2024-12-13 12:39] VITALS: BP 167/99; PULSE 99; RESP 13; O2SAT 100
[2024-12-13] MEDS: HYDROmorphone HCL INJ (*CRX) 2 MG/ML VIAL 1 MG IV PUSH ×4 (12:42→23:52)
[2024-12-13 12:46] VITALS: TEMP 36.4
[2024-12-13 14:19] LABS: Basophils Percent Auto 0.4 % (0.2-1.2); Eosinophils Absolute Auto 0.1 K/mm3 (0-0.3); Hematocrit 42.1 % (37.0-47.0); Hemoglobin 14.5 g/dL (12.0-15.0); Immature Granulocyte Absolute 0.06 K/mm3 (0.00-0.031); Immature Granulocyte Percent A 0.5 % (0-0.5); Lymphocytes Absolute Auto 1.42 K/mm3 (0.9-3.2); Lymphocytes Percent Auto 12.8 % (18.3-44.2); Mean Corpuscular HGB Conc 34.4 g/dl (32-36); Mean Corpuscular Hemoglobin 33.3 pg (26-34); Mean Corpuscular Volume 96.8 fl (80-100); Mean Platelet Volume 10.1 fl (7.4-10.4); Monocytes Absolute Auto 1.2 K/mm3 (0.1-0.6); Monocytes Percent Auto 10.4 % (2.6-8.5); Neutrophils Absolute Auto 8.3 K/mm3 (1.3-6.7); Neutrophils Percent Auto 74.9 % (45.5-73.1); Platelet Count Result 133 k/mm3 (150-375); Red Blood Count 4.35 M/mm3 (4.2-5.4); Red Cell Distribution Width 13.2 % (11.5-14.5); White Blood Count 11.1 K/mm3 (4.5-10.0)
[2024-12-13 14:28] LABS: Alanine Aminotransferase 16 U/L (6-35); Albumin Level 4.4 g/dL (3.5-5.1); Alkaline Phosphatase 60 U/L (38-126); Anion Gap 10 mmol/L (4-12); Aspartate Amino Transferase 27 U/L (14-36); Bilirubin,Total 0.8 mg/dL (0.2-1.3); Blood Urea Nitrogen 32 mg/dL (7-17); Calcium 9.3 mg/dL (8.4-10.2); Carbon Dioxide 25 mmol/L (22-30); Chloride 102 mmol/L (98-107); Estimated CRCL calculation 40 ml/min; Estimated Glomerular Filt Rate 48; Glucose 430 mg/dL (65-110); Potassium 4.1 mmol/L (3.4-5.0); Sodium 137 mmol/L (137-145)
--- NOTE | 2024-12-13 14:30 | ED_ITS ---
HPI - General Adult General Chief complaint: Nausea/Vomiting/Diarrhea Stated complaint: N/V/D Time Seen by Provider: 12/13/24 12:16 History of Present Illness HPI narrative: Patient is a 49-year-old female who presents ER with nausea vomiting. Recently seen in the ER for similar complaint but was having dysuria as well. Urinalysis showed E coli resistant to Bactrim which is what she was prescribed. She has some aching back pain related to her vomiting. No chest pain chest pressure. Diffuse abdominal discomfort. Related Data Home Medications ?Medication ?Instructions ?Recorded ?Confirmed ?Last Taken ?Type aspirin 81 mg tablet,delayed 81 mg PO DAILY 08/30/20 08/08/24 08/06/24 09:00 History release (Adult Aspirin Regimen) 81 mg azathioprine 50 mg tablet 50 mg PO DAILY 08/30/20 08/08/24 08/06/24 09:00 History 50 mg omeprazole 20 mg capsule,delayed 20 mg PO DAILY 08/30/20 08/08/24 08/06/24 12:00 History release 20 mg zolpidem 10 mg tablet (Ambien) 10 mg PO HS 08/30/20 08/08/24 08/06/24 23:00 History 10 mg amlodipine 5 mg tablet 5 mg PO BID 12/22/23 08/08/24 04/13/24 History atorvastatin 20 mg tablet 20 mg PO DAILY 12/22/23 08/08/24 08/06/24 09:00 History 20 mg biotin 5 mg tablet 5 mg PO HS 12/22/23 08/08/24 08/06/24 21:00 History 5 mg cholecalciferol (vitamin D3) 50 50 mcg PO DAILY 12/22/23 08/08/24 08/06/24 12:00 History mcg (2,000 unit) tablet (Vitamin 50 mcg D3) cyanocobalamin (vitamin B-12) 500 1,000 mcg PO DAILY 12/22/23 08/08/24 08/06/24 09:00 History mcg tablet 1,000 mcg epinephrine 0.3 mg/0.3 mL 0.3 mg IM Q5-15M PRN Anaphylaxis 12/22/23 08/08/24 Unknown History injection, auto-injector flash glucose sensor (FreeStyle 12/22/23 08/08/24 Unknown History Lynda 14 Day Sensor kit) fluticasone furoate 100 1 inh inhalation DAILY 12/22/23 08/08/24 08/06/24 09:00 History mcg-vilanterol 25 mcg/dose 1 inh inhalation powder (Breo Ellipta) gabapentin 100 mg capsule 100 mg PO TID 12/22/23 08/08/24 08/06/24 21:00 History 100 mg insulin glargine U-300 conc 300 24 unit subcut DAILY 12/22/23 08/08/24 08/07/24 09:00 History unit/mL (1.5 mL) subcutaneous pen 24 unit (Toujeo SoloStar U-300 Insulin) montelukast 10 mg tablet 10 mg PO DAILY 12/22/23 08/08/24 08/06/24 09:00 History 10 mg pen needle, diabetic 31 gauge x 12/22/23 08/08/24 Unknown History 10/11 (BD Ultra-Fine Mini Pen Needle) sertraline 50 mg tablet 50 mg PO DAILY 12/22/23 08/08/24 08/06/24 20:00 History 50 mg tramadol 50 mg tablet 100 mg PO Q6H PRN Pain 12/22/23 08/08/24 08/06/24 20:00 History 100 mg alprazolam 0.5 mg tablet 0.5 mg PO TID PRN Anxiety 01/10/24 08/08/24 08/06/24 14:00 History 0.5 mg carvedilol 6.25 mg tablet (Coreg) 6.25 mg PO DAILY 01/10/24 08/08/24 08/06/24 09:00 History 6.25 mg divalproex 500 mg tablet,delayed 500 mg PO TID 01/10/24 08/08/24 08/06/24 09:00 History release 500 mg prednisone 5 mg tablet 5 mg PO DAILY 01/10/24 08/08/24 08/06/24 09:00 History 5 mg tacrolimus 1 mg tablet,extended 3 mg PO DAILY 01/10/24 08/08/24 08/06/24 08:00 History release 24 hr (Envarsus XR) 3 mg timolol maleate 0.5 % eye drops 2 drp EACH EYE BID 01/10/24 08/08/24 08/06/24 21:00 History 2 drp fluticasone propionate 50 2 spray intranasal BID PRN RHINITIS 04/13/24 08/08/24 08/06/24 09:00 History mcg/actuation nasal 1 spray spray,suspension glucagon 3 mg/actuation nasal 3 mg intranasal PRN PRN 04/13/24 08/08/24 08/01/24 12:00 History spray (Baqsimi) Hypoglycemia 3 mg insulin lispro 100 unit/mL See Rx Instructions .Route .COMPLEX 04/13/24 08/08/24 08/07/24 21:00 History subcutaneous half-unit pen furosemide 20 mg tablet (Lasix) 20 mg PO DAILY 08/08/24 08/08/24 08/06/24 09:00 History 20 mg Allergies Allergy/AdvReac Type Severity Reaction Status Date / Time cyclobenzaprine Allergy Unknown Hives / Verified 12/13/24 15:39 Red Face tetracycline Allergy Unknown Nausea and Verified 12/13/24 15:39 Vomiting acetaminophen (From Tylenol) Allergy Nausea and Verified 12/13/24 15:39 Vomiting metformin AdvReac Intermediate Vomiting Verified 12/13/24 15:39 morphine AdvReac Itching Verified 12/13/24 15:39 Review of Systems 2 Review of Systems: All systems reviewed & are unremarkable except as noted in HPI and below Constitutional: Constitutional: Reports fatigue, Reports fever(s) and Reports weakness ENT: Reports system reviewed and no additional complaints, except as documented Cardiovascular: Cardiovascular: Reports no additional cardiovascular complaints Respiratory: Respiratory: Reports no additional respiratory complaints Gastrointestinal: Gastrointestinal: Reports no additional gastrointestinal complaints Genitourinary: Genitourinary: Reports no additional female genitourinary complaints [facility] Past Medical History Medical History (Updated 12/13/24 @ 16:32 by Christian Malave MD) UTI (urinary tract infection) Post-menopausal Pancreatic insufficiency Hypertension MRSA infection Chronic obstructive pulmonary disease Diabetic nephropathy Type 1 diabetes mellitus Diabetic gastroparesis Surgical History Surgical History History of right nephrectomy Secondary to suspicious mass which turned out to be noncancerous. History of benign breast biopsy History of hysterectomy History of appendectomy (02/2019) History of kidney transplant (02/2019) [place] Family History Family History (Updated 08/08/24 @ 14:56 by Amy Hyatt RN) Grandparent Diabetes mellitus Emphysema of lung Mother and grandparent Grandparent Hypertension Mother Lupus Social History Social History Social History: Surrogate medical decision maker: Aleja Mcghee, mother. Code status: Full code. Smoking packs per day: 1 Smoking cigarettes per day: 20.0 Years smoked: 10 Smoking pack-years: 10.00 Smoking status: Former smoker Tobacco type: cigarettes Second hand tobacco smoke exposure: No Smoking end date: 10/27/18 Alcohol intake: former Substance use: never Substance use type: marijuana Do You Feel Safe in your Home?: Yes Lack of Transportation: No Lack of Food: Never True Current Housing: I Have Housing Concerned About Future Housing: No Difficulty Paying Gas/Electric Bills: No Difficulty Paying for Meds: No Currently Unemployed: No Education: High School Diploma/GED Difficulty w/ Childcare or Family Care: No Spiritual care concerns: No Exam 2 Narrative: GENERAL: Uncomfortable appearing, well-nourished, and in no acute distress. HEAD: Normocephalic, atraumatic. ENT: Mucous membranes moist. CHEST: Clear to auscultation. No respiratory distress. HEART: Regular rate and rhythm. Normal peripheral pulses. ABDOMEN: Soft, nontender, nondistended. No cva tenderness EXTREMITIES: Normal range of motion. No edema. SKIN: Warm, dry, no rash. NEURO: Alert and oriented x3. PSYCH: Normal mood and affect. Course Course Emergency Course: Blood in fentanyl for pain. Zofran and promethazine for vomiting. IV fluids given. Patient started on Zosyn after looking at antibiotic resistance profile. Admit to hospitalist service. Vital Signs Vital signs: Vital Signs Pulse Rate 99 12/13/24 12:39 Respiratory Rate 13 12/13/24 12:39 Blood Pressure 167/99 H 12/13/24 12:39 Pulse Oximetry 100 12/13/24 12:39 Temperature 97.6 F 12/13/24 12:46 Pulse Rate 102 H 12/13/24 15:32 Respiratory Rate 17 12/13/24 15:32 Blood Pressure 183/65 H 12/13/24 15:32 Pulse Oximetry 98 12/13/24 15:32 Medical Decision Making Vital Signs Vital Signs: Vital Signs Pulse Rate 99 12/13/24 12:39 Respiratory Rate 13 12/13/24 12:39 Blood Pressure 167/99 H 12/13/24 12:39 Pulse Oximetry 100 12/13/24 12:39 Temperature 97.6 F 12/13/24 12:46 Pulse Rate 102 H 12/13/24 15:32 Respiratory Rate 17 12/13/24 15:32 Blood Pressure 183/65 H 12/13/24 15:32 Pulse Oximetry 98 12/13/24 15:32 Lab Data 12/13/24 14:11 12/13/24 14:11 Labs: Lab Results 12/13/24 12/13/24 Range/Units 14:11 15:30 WBC 11.1 H (4.5-10.0) K/mm3 RBC 4.35 (4.2-5.4) M/mm3 Hgb 14.5 (12.0-15.0) g/dL Hct 42.1 (37.0-47.0) % MCV 96.8 (80-100) fl MCH 33.3 (26-34) pg MCHC 34.4 (32-36) g/dl RDW 13.2 (11.5-14.5) % Plt Count 133 L (150-375) k/mm3 MPV 10.1 (7.4-10.4) fl Immature Gran % (Auto) 0.5 (0-0.5) % Neut % (Auto) 74.9 H (45.5-73.1) % Lymph % (Auto) 12.8 L (18.3-44.2) % [place] % (Auto) 10.4 H (2.6-8.5) % Eos % (Auto) 1.0 (0-4.4) % Baso % (Auto) 0.4 (0.2-1.2) % Lymph # (Auto) 1.42 (0.9-3.2) K/mm3 [place] # (Auto) 1.2 H (0.1-0.6) K/mm3 Eos # (Auto) 0.1 (0-0.3) K/mm3 Baso # (Auto) 0.0 (0.0-0.1) K/mm3 Abs Immat Gran (auto) 0.06 H (0.00-0.031) K/mm3 Absolute Neuts (auto) 8.3 H (1.3-6.7) K/mm3 Absolute Nucleated RBC 0.000 (0.0-0.012) K/mm3 Nucleated RBC % 0.0 (0.0-0.2) % Sodium 137 (137-145) mmol/L Potassium 4.1 (3.4-5.0) mmol/L Chloride 102 (98-107) mmol/L Carbon Dioxide 25 (22-30) mmol/L Anion Gap 10 (4-12) mmol/L BUN 32 H D (7-17) mg/dL Creatinine 1.20 H (0.7-1.0) mg/dL Estim Creat Clear Calc 40 ml/min Estimated GFR 48 L (59 - ) Glucose 430 H (65-110) mg/dL Calcium 9.3 (8.4-10.2) mg/dL Total Bilirubin 0.8 (0.2-1.3) mg/dL AST 27 (14-36) U/L ALT 16 (6-35) U/L Alkaline Phosphatase 60 (38-126) U/L Total Protein 8.0 (6.3-8.2) g/dL Albumin 4.4 (3.5-5.1) g/dL Lipase < 10 L (23-300) U/L Urine Color Dark yellow (Yellow) Urine Appearance Clear (Clear) Urine pH 8.0 (5.0-9.0) Ur Specific [place] 1.018 (1.001-1.035) Urine Protein Negative (Negative) mg/dL Urine Glucose (UA) 3+ H (Negative) mg/dL Urine Ketones 1+ H (Negative) mg/dL Ur Blood (Man) Trace (Negative) Urine Nitrate Positive H (Negative) Urine Bilirubin Negative (Negative) Urine Urobilinogen 1.0 (<2.0) mg/dL Add Ur Microanalysis Reviewed Leukocyte Esterase Rfl 1+ H (Negative) SACHA/UL Urine RBC 3-5 H (0-2) /hpf Urine WBC 21-50 H (0-3) /hpf Ur Squamous Epith Cells None seen (Few) /hpf Urine Bacteria None seen /hpf Urine Casts 0-2 Critical Care Time Critical Care Time Critical Care Time: Yes Total Critical Care Time: 35 Discharge Plan Discharge Clinical Impression: DAREK (acute kidney injury), UTI (urinary tract infection), Vomiting Patient Disposition: Still a Patient Condition: Stable Patient Language: Macedonian Prescriptions: No Action zolpidem [Ambien] 10 mg tablet 10 mg PO HS azathioprine 50 mg tablet 50 mg PO DAILY aspirin [Adult Aspirin Regimen] 81 mg tablet,delayed release (DR/EC) 81 mg PO DAILY omeprazole 20 mg capsule,delayed release(DR/EC) 20 mg PO DAILY atorvastatin 20 mg Tablet 20 mg PO DAILY amlodipine 5 mg Tablet 5 mg PO BID cyanocobalamin (vitamin B-12) 500 mcg Tablet 1,000 mcg PO DAILY montelukast 10 mg Tablet 10 mg PO DAILY gabapentin 100 mg Capsule 100 mg PO TID epinephrine 0.3 mg/0.3 mL Auto-Injector 0.3 mg IM Q5-15M PRN (Reason: Anaphylaxis) Patient Comments: Hasn't taken in years Rx Instructions: do not exceed 3 doses per episode sertraline 50 mg Tablet 50 mg PO DAILY (DME) pen needle, diabetic [BD Ultra-Fine Mini Pen Needle] 31 gauge x 3/16 Needle MISCELLANEOUS biotin 5 mg Tablet 5 mg PO HS fluticasone furoate-vilanterol [Breo Ellipta] 100-25 mcg/dose Blister With Device 1 inh INHALATION DAILY Rx Instructions: INHALE 1 PUFF BY MOUTH DAILY- RINSE MOUTH WITH WATER AFTER USE. DO NOT SWALLOW (DME) FreeStyle Lynda 14 Day Sensor Kit MISCELLANEOUS tramadol 50 mg Tablet 100 mg PO Q6H PRN (Reason: Pain) cholecalciferol (vitamin D3) [Vitamin D3] 50 mcg (2,000 unit) Tablet 50 mcg PO DAILY insulin glargine U-300 conc [Toujeo SoloStar U-300 Insulin] 300 unit/mL (1.5 mL) Insulin Pen 24 unit SUBCUT DAILY Rx Instructions: INJECT 28 UNITS UNDER SKIN ONCE DAILY. 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 carvedilol [Coreg] 6.25 mg tablet 6.25 mg PO DAILY Baqsimi 3 mg/actuation spray,non-aerosol 3 mg INTRANASAL PRN PRN (Reason: Hypoglycemia) fluticasone propionate 50 mcg/actuation [place],Suspension 2 spray INTRANASAL BID PRN (Reason: RHINITIS) Rx Instructions: administer 2 sprays into each nostril 2 times a day as needed for rhinits insulin lispro 100 unit/mL insulin pen, half-unit See Rx Instructions .ROUTE .COMPLEX Rx Instructions: 1:13 carb ratio with breakfast, 1:15 carb ratio with lunch and 1:13 carb ratio with supper plus sliding scale 1 unit for every 50 points greater than 150; MDD is 30 units furosemide [Lasix] 20 mg tablet 20 mg PO DAILY sucralfate 100 mg/mL Suspension 1,000 mg PO ACHS Qty: 15 0RF metronidazole 500 mg Tablet 500 mg PO Q8HR Qty: 6 0RF sulfamethoxazole-trimethoprim 800-160 mg Tablet 1 tab PO Q12HR Qty: 4 0RF oxycodone 5 mg tablet 5 mg PO Q8H PRN (Reason: pain) Qty: 7 0RF sulfamethoxazole-trimethoprim [Bactrim DS] 800-160 mg tablet 1 tablet PO Q12H Qty: 20 0RF ondansetron 4 mg tablet,disintegrating 4 mg PO Q6H PRN (Reason: nausea and vomiting) Qty: 10 0RF Zenpep 60,000-189,600- 252,600 unit capsule,delayed release(DR/EC) 1 cap PO .ac Qty: 300 4RF Rx Instructions: administer with meals and/or snacks mirtazapine 15 mg tablet See Rx Instructions .ROUTE .COMPLEX Qty: 90 1RF Dose Instruction: TAKE 1 TABLET BY MOUTH AT BEDTIME. Rx Instructions: TAKE 1 TABLET BY MOUTH AT BEDTIME.
[2024-12-13 14:44] LABS: Lipase < 10 U/L (23-300)
[2024-12-13] MEDS: fentaNYL CITRATE INJ (*CRX) 100 MCG/2 ML VIAL 50 MCG IV PUSH (14:52)
[2024-12-13] MEDS: PROMETHAZINE HCL 25 MG/ML AMPUL 12.5 MG IV PUSH (14:52)
[2024-12-13 14:55] VITALS: BP 175/105; PULSE 100; RESP 18; O2SAT 99
[2024-12-13] MEDS: PIPERACILLN/TAZ 3.375GM/NS50ML 3.375 GM/50 ML BAG IVPB ×2 (15:27→21:38)
[2024-12-13 15:32] VITALS: BP 183/65; PULSE 102; RESP 17; O2SAT 98
--- NOTE | 2024-12-13 15:38 | P.HP_ITS ---
H&P: HPI History of Present Illness Date/Time: 12/13/24 15:38 Chief Complaint: UTI, nausea vomiting Narrative: 49-year-old female presents the hospital with UTI nausea and vomiting. On 12/11/2024 the patient came to the emergency room was treated for UTI and sent home on Bactrim. Her cultures came back positive for E coli that is resistant to Bactrim so she presented back to the hospital for IV antibiotics. Patient states that she did vomit home however was several hours after she took her anti-rejection meds. She states that she has severe burning with urination. Due to allergies and kidney transplants we are limited on pain management. Lab work shows leukocytosis 11.1, BUN of 32, creatinine of 1.2 baseline being 0.63, glucose 430. Repeat UA pending In the ED she was given 2 L fluid bolus and started on Zosyn. Review of Systems Review of Systems: 12 systems were reviewed and are negativ e except for as per HPI. [facility] Past Medical History Medical History (Updated 12/13/24 @ 16:32 by Christian aMlave MD) UTI (urinary tract infection) Post-menopausal Pancreatic insufficiency Hypertension MRSA infection Chronic obstructive pulmonary disease Diabetic nephropathy Type 1 diabetes mellitus Diabetic gastroparesis Surgical History Surgical History History of right nephrectomy Secondary to suspicious mass which turned out to be noncancerous. History of benign breast biopsy History of hysterectomy History of appendectomy (02/2019) History of kidney transplant (02/2019) [facility] Family History Family History Grandparent Diabetes mellitus Emphysema of lung Mother and grandparent Grandparent Hypertension Mother Lupus Social History Social History Social History: Surrogate medical decision maker: Aleja Mcghee, mother. Code status: Full code. Smoking packs per day: 1 Smoking cigarettes per day: 20.0 Years smoked: 10 Smoking pack-years: 10.00 Smoking status: Former smoker Tobacco type: cigarettes Second hand tobacco smoke exposure: No Smoking end date: 10/27/18 Alcohol intake: former Substance use: former Substance use type: marijuana Do You Feel Safe in your Home?: Yes Lack of Transportation: No Lack of Food: Never True Current Housing: I Have Housing Concerned About Future Housing: No Difficulty Paying Gas/Electric Bills: No Difficulty Paying for Meds: No Currently Unemployed: No Education: High School Diploma/GED Difficulty w/ Childcare or Family Care: No Spiritual care concerns: No Meds Home Medications and Allergies Home Medications ?Medication ?Instructions ?Recorded ?Confirmed ?Type aspirin 81 mg tablet,delayed 81 mg PO DAILY 08/30/20 08/08/24 History release (Adult Aspirin Regimen) azathioprine 50 mg tablet 50 mg PO DAILY 08/30/20 08/08/24 History omeprazole 20 mg capsule,delayed 20 mg PO DAILY 08/30/20 08/08/24 History release zolpidem 10 mg tablet (Ambien) 10 mg PO HS 08/30/20 08/08/24 History amlodipine 5 mg tablet 5 mg PO BID 12/22/23 08/08/24 History atorvastatin 20 mg tablet 20 mg PO DAILY 12/22/23 08/08/24 History biotin 5 mg tablet 5 mg PO HS 12/22/23 08/08/24 History cholecalciferol (vitamin D3) 50 50 mcg PO DAILY 12/22/23 08/08/24 History mcg (2,000 unit) tablet (Vitamin D3) cyanocobalamin (vitamin B-12) 500 1,000 mcg PO DAILY 12/22/23 08/08/24 History mcg tablet epinephrine 0.3 mg/0.3 mL 0.3 mg IM Q5-15M PRN Anaphylaxis 12/22/23 08/08/24 History injection, auto-injector flash glucose sensor (FreeStyle 12/22/23 08/08/24 History Lynda 14 Day Sensor kit) fluticasone furoate 100 1 inh inhalation DAILY 12/22/23 08/08/24 History mcg-vilanterol 25 mcg/dose inhalation powder (Breo Ellipta) gabapentin 100 mg capsule 100 mg PO TID 12/22/23 08/08/24 History insulin glargine U-300 conc 300 24 unit subcut DAILY 12/22/23 08/08/24 History unit/mL (1.5 mL) subcutaneous pen (Rigoberto Moreno U-300 Insulin) montelukast 10 mg tablet 10 mg PO DAILY 12/22/23 08/08/24 History pen needle, diabetic 31 gauge x 12/22/23 08/08/24 History 3/16 (BD Ultra-Fine Mini Pen Needle) sertraline 50 mg tablet 50 mg PO DAILY 12/22/23 08/08/24 History tramadol 50 mg tablet 100 mg PO Q6H PRN Pain 12/22/23 08/08/24 History alprazolam 0.5 mg tablet 0.5 mg PO TID PRN Anxiety 01/10/24 08/08/24 History carvedilol 6.25 mg tablet (Coreg) 6.25 mg PO DAILY 01/10/24 08/08/24 History divalproex 500 mg tablet,delayed 500 mg PO TID 01/10/24 08/08/24 History release prednisone 5 mg tablet 5 mg PO DAILY 01/10/24 08/08/24 History tacrolimus 1 mg tablet,extended 3 mg PO DAILY 01/10/24 08/08/24 History release 24 hr (Envarsus XR) timolol maleate 0.5 % eye drops 2 drp EACH EYE BID 01/10/24 08/08/24 History fluticasone propionate 50 2 spray intranasal BID PRN RHINITIS 04/13/24 08/08/24 History mcg/actuation nasal spray,suspension glucagon 3 mg/actuation nasal 3 mg intranasal PRN PRN 04/13/24 08/08/24 History spray (Baqsimi) Hypoglycemia insulin lispro 100 unit/mL See Rx Instructions .Route .COMPLEX 04/13/24 08/08/24 History subcutaneous half-unit pen lipase 60,000-protease 1 cap PO .ac #300 caps 05/28/24 08/08/24 Rx 189,600-amylase 252,600 unit capsule, delay rel (Zenpep) mirtazapine 15 mg tablet See Rx Instructions .Route 07/10/24 08/08/24 Rx .COMPLEX #90 tabs furosemide 20 mg tablet (Lasix) 20 mg PO DAILY 08/08/24 08/08/24 History metronidazole 500 mg tablet 500 mg PO Q8HR #6 tabs 08/11/24 Rx oxycodone 5 mg tablet 5 mg PO Q8H PRN pain #7 tabs 08/11/24 Rx sucralfate 100 mg/mL oral 1,000 mg (10 mL) PO ACHS #15 mL 08/11/24 Rx suspension sulfamethoxazole 800 1 tab PO Q12HR #4 tabs 08/11/24 Rx mg-trimethoprim 160 mg tablet ondansetron 4 mg disintegrating 4 mg PO Q6H PRN nausea and 12/11/24 Rx tablet vomiting #10 tabs sulfamethoxazole 800 1 tablet PO Q12H #20 tabs 12/11/24 Rx mg-trimethoprim 160 mg tablet (Bactrim DS) Allergies Allergy/AdvReac Type Severity Reaction Status Date / Time cyclobenzaprine Allergy Unknown Hives / Verified 12/13/24 15:39 Red Face tetracycline Allergy Unknown Nausea and Verified 12/13/24 15:39 Vomiting acetaminophen (From Tylenol) Allergy Nausea and Verified 12/13/24 15:39 Vomiting metformin AdvReac Intermediate Vomiting Verified 12/13/24 15:39 morphine AdvReac Itching Verified 12/13/24 15:39 Vital Signs Vital Signs - 24 hr 12/13/24 12:39 12/13/24 12:46 12/13/24 14:55 Temperature 97.6 F Pulse Rate 99 100 Respiratory Rate 13 18 Blood Pressure 167/99 H 175/105 H Pulse Oximetry 100 99 12/13/24 15:32 Temperature Pulse Rate 102 H Respiratory Rate 17 Blood Pressure 183/65 H Pulse Oximetry 98 Exam Narrative: General: well appearing, appears stated age. HEENT: normocephalic, atraumatic. Mucous membranes moist. EOMI, PERRLA, bilateral sclera anicteric, no conjunctival injection. Neck supple without JVD, lymphadenopathy, or bruit. Respiratory: clear to ascultation bilaterally. No rales/rhonic/wheezes. Cardiovascular: Regular rate and rhythm, normal S1-S2 upon ascultation. No murmurs, rubs, or clicks. PMI is nondisplaced, capillary refill less than 3 second. Abdomen: Soft, round, no pulsatile masses, nondistended and nontender. No rebound, no guarding. No CVA tenderness, no hepatosplenomegaly. Bowel sounds present to all four quadrants. No high pitch or tinkling sounds, resonant to percussion. Extremities: No cyanosis, clubbing, or edema present. Pulses are palpable 2/2. Active ROM to all four extremities. Neuro: Alert and orientated x 4. PERRLA. Cranial nerves 2-12 intact without focal deficit. Skin: Warm, dry, and intact, without rash, erythema, or lesion. Psych: pleasant, cooperative, normal speech, normal affect, no hallucinations, no dysarthia H&P: Results Labs Labs: Short CBC 12/13/24 Range/Units 14:11 WBC 11.1 H (4.5-10.0) K/mm3 Hgb 14.5 (12.0-15.0) g/dL Hct 42.1 (37.0-47.0) % Plt Count 133 L (150-375) k/mm3 BMP 12/13/24 14:11 Sodium 137 Potassium 4.1 Chloride 102 Carbon Dioxide 25 BUN 32 H D Creatinine 1.20 H Glucose 430 H Calcium 9.3 Liver Function 12/13/24 Range/Units 14:11 Total Bilirubin 0.8 (0.2-1.3) mg/dL AST 27 (14-36) U/L ALT 16 (6-35) U/L Alkaline Phosphatase 60 (38-126) U/L Albumin 4.4 (3.5-5.1) g/dL Assessment and Plan Assessment and plan (1) UTI (urinary tract infection): Code(s): N39.0 - Urinary tract infection, site not specified Status: Acute Assessment and Plan: IV Zosyn Fluid bolus IVF (2) Kidney transplant recipient: Code(s): Z94.0 - Kidney transplant status Status: Acute Assessment and Plan: With DAREK Aggressive fluid hydration restart anti rejection drugs once verified by nursing (3) Hypertensive urgency: Code(s): I16.0 - Hypertensive urgency Status: Acute Assessment and Plan: Hydralazine p.r.n. (4) Type 1 diabetes mellitus: Code(s): E10.9 - Type 1 diabetes mellitus without complications Status: Acute Assessment and Plan: Lantus and SSI Q.6 Accu-Cheks due to nausea vomiting Diet is tolerate (5) Hyperglycemia: Code(s): R73.9 - Hyperglycemia, unspecified Status: Acute Assessment and Plan: Likely secondary to infection Plan as above Quality VTE Prophylaxis VTE prophylaxis: mechanical ordered Hospitalist [facility] Advance Care Plan I have confirmed that the patient's Advanced Care Plan is present, code status is documented, or surrogate decision maker is listed in patient medical record.: Yes
[2024-12-13 15:55] LABS: Add Urine Microscopic? YES; Appearance Urine Clear (Clear); Bacteria Urine None Seen /hpf; Bilirubin Urine Negative (Negative); Blood Urine Trace (Negative); Color Urine Dark Yellow (Yellow); Glucose Urine UA 3+ mg/dL (Negative); Ketones Urine 1+ mg/dL (Negative); Leukocyte Esterase Ur 1+ LEU/UL (Negative); Need Manual Microscopic Reviewed; Nitrate Urine Positive (Negative); Non Pathogenic Casts 0-2; Protein Urine Negative (Negative); Specific Grav Ur 1.018 (1.001-1.035); Squamous Epithelial Cell Urine None Seen /hpf (Few); WBC Urine 21-50 /hpf (0-3)
[2024-12-13] MEDS: SODIUM CHLORIDE 0.9% IV 1,000 ML 125 ML IV CONT (17:20)
[2024-12-13 17:21] VITALS: BP 206/98; PULSE 100; RESP 26; O2SAT 98
[2024-12-13 17:27] LABS: Glucose Point of Care 347 mg/dl (65-105)
[2024-12-13] MEDS: INSULIN ASPART (*BKC) 100 UNITS/ML SUB-Q (18:29)
[2024-12-13] MEDS: hydrALAZINE HCL 20 MG/ML VIAL 10 MG IV PUSH (18:30)
[2024-12-13 18:36] VITALS: BMI 24.5
--- NOTE | 2024-12-13 18:41 | ADMGEN ---
This patient, Juaquin Rey, was admitted to [facility] Surg Room 312-01. Patient/family oriented to hospital policies and general routines including ID bracelet, bed and alarms, visiting hours, pain management, procedures, bathroom and other care routines, personal items, smoking policy, room service/diet, and visiting hours. Information on how to activate the Rapid Response Team has been discussed. Patient/Family are encouraged to report perceived risks to care and to ask questions if they do not understand what they are told or what they should do.
[2024-12-13] MEDS: TRIMETHOBENZAMIDE HCL 200 MG/2 ML VIAL IM (20:03)
[2024-12-13 20:46] VITALS: BP 149/80; PULSE 115; RESP 16; TEMP 35.8; O2SAT 100
[2024-12-13 20:46] LABS: Glucose Point of Care 297 mg/dl (65-105)
[2024-12-13 23:59] LABS: Glucose Point of Care 231 mg/dl (65-105)
[2024-12-14] MEDS: PIPERACILLN/TAZ 3.375GM/NS50ML 3.375 GM/50 ML BAG IVPB ×4 (03:00→20:31)
[2024-12-14] MEDS: SODIUM CHLORIDE 0.9% IV 1,000 ML 125 ML IV CONT ×2 (03:07→17:58)
[2024-12-14] MEDS: ALPRAZolam (*CRX) 0.5 MG TABLET PO ×3 (03:49→23:16)
[2024-12-14] MEDS: HYDROmorphone HCL INJ (*CRX) 2 MG/ML VIAL 1 MG IV PUSH ×8 (03:50→20:31)
[2024-12-14 05:14] LABS: Glucose Point of Care 179 mg/dl (65-105)
[2024-12-14 05:45] VITALS: BP 121/58; PULSE 102; RESP 16; TEMP 36.3; O2SAT 93
[2024-12-14 06:21] LABS: Basophils Percent Auto 0.4 % (0.2-1.2); Eosinophils Percent Auto 0.2 % (0-4.4); Hematocrit 43.4 % (37.0-47.0); Hemoglobin 13.9 g/dL (12.0-15.0); Immature Granulocyte Absolute 0.06 K/mm3 (0.00-0.031); Immature Granulocyte Percent A 0.6 % (0-0.5); Lymphocytes Percent Auto 18.7 % (18.3-44.2); Mean Corpuscular Hemoglobin 32.7 pg (26-34); Mean Corpuscular Volume 102.1 fl (80-100); Mean Platelet Volume 10.1 fl (7.4-10.4); Monocytes Absolute Auto 0.9 K/mm3 (0.1-0.6); Monocytes Percent Auto 9.1 % (2.6-8.5); Neutrophils Absolute Auto 6.9 K/mm3 (1.3-6.7); Platelet Count Result 141 k/mm3 (150-375); Red Blood Count 4.25 M/mm3 (4.2-5.4); Red Cell Distribution Width 13.9 % (11.5-14.5); White Blood Count 9.7 K/mm3 (4.5-10.0)
[2024-12-14 06:28] LABS: Anion Gap 12 mmol/L (4-12); Blood Urea Nitrogen 21 mg/dL (7-17); Calcium 8.4 mg/dL (8.4-10.2); Carbon Dioxide 24 mmol/L (22-30); Chloride 103 mmol/L (98-107); Estimated CRCL calculation 50 ml/min; Estimated Glomerular Filt Rate > 60; Glucose 178 mg/dL (65-110); Potassium 3.9 mmol/L (3.4-5.0); Sodium 139 mmol/L (137-145)
[2024-12-14] MEDS: ONDANSETRON HCL ODT 4 MG TABLET PO (06:32)
--- NOTE | 2024-12-14 07:09 | P.PNIM_ITS ---
Progress Note: A&P Assessment and Plan (1) UTI (urinary tract infection): Code(s): N39.0 - Urinary tract infection, site not specified Status: Acute Assessment and Plan: IV Zosyn Fluid bolus IVF Awaiting results (2) Kidney transplant recipient: Code(s): Z94.0 - Kidney transplant status Status: Acute Assessment and Plan: With DAREK Aggressive fluid hydration Anti rejection drugs started - R kidney was removed due to [place] being on it, so she is left with her original L kidney and a transplanted kidney she reports is in her lower abd region Continue to trend daily labs, kidney labs WDL today (3) Hypertensive urgency: Code(s): I16.0 - Hypertensive urgency Status: Acute Assessment and Plan: Continue with home meds: Coreg Hydralazine p.r.n. Stable BP with AM reading (4) Type 1 diabetes mellitus: Code(s): E10.9 - Type 1 diabetes mellitus without complications Status: Acute Assessment and Plan: Lantus and SSI Q.6 Accu-Checks due to nausea vomiting - readings have been stable Diet is tolerate (5) Hyperglycemia: Code(s): R73.9 - Hyperglycemia, unspecified Status: Acute Assessment and Plan: Likely secondary to infection, has improved Plan as above Plan Continue with IV abx, monitor VS, pain, blood sugar, and AM labs. Subjective Date/time seen: 12/14/24 1018 Interval history: Pt is a 49-year-old female who presents to the ED with worsening N/V/D. On 12/11/2024 the patient came to the emergency room was treated for UTI and sent home on Bactrim. Her cultures came back positive for E coli that is resistant to Bactrim so she presented back to the hospital for IV antibiotics. Patient states that she did vomit home however was several hours after she took her anti-rejection meds. She states that she has severe burning with urination. Due to allergies and kidney transplants we are limited on pain management. Lab work shows leukocytosis 11.1, BUN of 32, creatinine of 1.2 baseline being 0.63, glucose 430. Repeat UA pending In the ED she was given 2 L fluid bolus and started on Zosyn. Pt reports today that diarrhea has since stopped and that she has been feeling slightly better since on IV Abx. New UA and culture sent off, pending. Pt with a hx of kidney transplant, R kidney was removed due to [place] being on it, so she is left with her original L kidney and a transplanted kidney she reports is in her lower abd region. Pt reporting not being hungry so has not eaten here yet, encouraged her to continue to try and eat. Zofran is ordered. Continue to trend labs, VS, IV abx, and await UC results. Review of Systems Review of Systems: 12 systems were reviewed and are negativ e except for as per HPI. Exam Const: General: no acute distress and uncomfortable HENMT: Face/Nose/Sinus: Normal nares present Mouth: Yes moist mucous membranes Eyes: General: appearance normal, both eyes and all related structures Sclera: sclerae normal Neck: Neck: supple Resp: Effort & Inspection: normal respiratory effort Auscultation: clear to auscultation bilaterally Cardio: Rate: tachycardic Rhythm: regular rhythm GI: Inspection: non-distended Auscultation: abnormal bowel sounds (hypoactive) Other: Mild suprapubic TTP, mild CVA TTP Skin: General skin exam: normal color and no rashes or lesions noted Neuro: Speech: normal speech Motor exam (neuro): Normal motor muscle tone present throughout Sensory Exam: normal sensation Extrem: General: normal to inspection Psych: Mental Status: mental status grossly normal Affect: normal affect Objective Data Vital Signs Vital Signs: Vital Signs - 24 hr 12/13/24 12:39 12/13/24 12:46 12/13/24 14:55 Temperature 97.6 F Pulse Rate 99 100 Respiratory Rate 13 18 Blood Pressure 167/99 H 175/105 H Pulse Oximetry 100 99 Oxygen Delivery 12/13/24 15:32 12/13/24 17:21 12/13/24 18:45 Temperature Pulse Rate 102 H 100 Respiratory Rate 17 26 H Blood Pressure 183/65 H 206/98 H Pulse Oximetry 98 98 Oxygen Delivery Room Air 12/13/24 20:00 12/13/24 20:46 12/14/24 05:45 Temperature 96.4 F L 97.4 F L Pulse Rate 115 H 102 H Respiratory Rate 16 16 Blood Pressure 149/80 H 121/58 L Pulse Oximetry 100 93 Oxygen Delivery Room Air Intake/Output Intake/Output: Intake & Output 12/11/24 12/12/24 12/13/24 12/14/24 23:59 23:59 23:59 23:59 Intake Total 2100 1050 Output Total 300 Balance 1800 1050 Meds/Results Medications: Active Medications Generic Name Dose Route Start Last Admin Trade Name Freq PRN Reason Stop Dose Admin Acetaminophen 650 mg 12/13/24 15:23 Acetaminophen 325 Mg Tablet PO Q4H PRN Mild Pain (1-3) or Fever Alprazolam 0.5 mg 12/14/24 03:00 12/14/24 03:49 Alprazolam (*Crx) 0.5 Mg Tablet PO 0.5 mg TID PRN Administration Anxiety Lipase/Protease/Amylase 5 cap 12/14/24 08:00 Lipase/Amylase/Protease 12,000 Units Cap PO TIDWM [facility] Aspirin 81 mg 12/14/24 09:00 Aspirin 81 Mg Enteric Tablet PO DAILY [facility] Atorvastatin Calcium 20 mg 12/14/24 09:00 Atorvastatin 20 Mg Tablet PO DAILY [facility] Azathioprine 50 mg 12/14/24 09:00 Azathioprine 50 Mg Tablet PO DAILY [facility] Carvedilol 6.25 mg 12/14/24 09:00 Carvedilol 6.25 Mg Tablet PO Q12HR [facility] Dextrose 12.5 gm 12/13/24 15:44 Dextrose 50% 25 Gm/50 Ml Syringe IV PUSH PRN PRN Hypoglycemia Protocol Divalproex Sodium 500 mg 12/14/24 08:[address] 250 Mg Tabec PO TIDWM [facility] Fentanyl Citrate 50 mcg 12/13/24 15:23 Fentanyl Citrate Inj (*Crx) 100 Mcg/2 Ml Vial IV PUSH Q2H PRN Pain Rated 7-10 Fluticasone Propionate 2 spray 12/14/24 03:00 Fluticasone Propionate 0.05% Na Spr 16 Gm Btl (*Bkc) NASAL BID PRN RHINITIS Furosemide 20 mg 12/14/24 09:00 Furosemide 20 Mg Tablet PO DAILY [facility] Gabapentin 100 mg 12/14/24 09:00 Gabapentin 100 Mg Capsule PO TID [facility] Glucagon 1 mg 12/13/24 15:44 Glucagon For Inj 1 Mg Vial IM PRN PRN Hypoglycemia Protocol Glucose 15 gm 12/13/24 15:44 Glucose Oral Gel 15 Gm Of Glucse In 37.5 Gm Tube PO PRN PRN Hypoglycemia Protocol Hydralazine HCl 10 mg 12/13/24 15:47 12/13/24 18:30 Hydralazine Hcl 20 Mg/Ml Vial IV PUSH 10 mg Q8H PRN Administration Blood Pressure - High Hydromorphone HCl 1 mg 12/13/24 15:48 12/14/24 06:43 Hydromorphone Hcl Inj (*Crx) 2 Mg/Ml Vial IV PUSH 1 mg Q2HR PRN Administration Pain Rated 6 or Greater Piperacillin/Tazobactam/Dextrose 3.375 gm in 50 mls @ 100 mls/hr 12/13/24 21:00 12/14/24 03:30 Zosyn 3.375 Gm/Ns 50 Ml IVPB Infused Q6H JJ Infusion Dextrose 1,000 mls @ 100 mls/hr 12/13/24 15:44 Dextrose 5% 1,000 Ml IVPB PRN PRN Hypoglycemia Protocol Sodium Chloride 1,000 mls @ 125 mls/hr 12/13/24 15:45 12/14/24 03:07 Normal Saline Iv IV CONT 125 mls/hr .Q8H JJ Administration Insulin Aspart 4 - 8 units 12/13/24 18:00 12/14/24 05:21 Insulin Aspart (*Bkc) 100 Units/Ml SUB-Q Not Given Q6HR JJ Protocol Insulin Glargine 24 units 12/13/24 21:00 12/13/24 23:56 Insulin Glargine (*Bkc) 100 Units/Ml SUB-Q Not Given HS [facility] Mirtazapine 15 mg 12/14/24 21:00 Mirtazapine 15 Mg Tablet PO HS [facility] Miscellaneous Information 0 each 12/14/24 05:25 Tacrolimus Er 1mg Tablets- Nonformulary And Are Not Interchangable. Please Obtain A Home S XX 01/13/25 05:24 CLARIFY [facility] Montelukast Sodium 10 mg 12/14/24 09:00 Montelukast Sodium 10 Mg Tablet PO DAILY [facility] Naloxone HCl 0.1 mg 12/13/24 15:44 Naloxone Hcl 0.4 Mg/Ml Vial IV PUSH Q2M PRN Opiate Reversal Non-Formulary Medication 3 mg 12/14/24 09:00 Tacrolimus [Envarsus Xr] PO 01/13/25 08:59 DAILY [facility] Ondansetron HCl 4 mg 12/14/24 03:00 12/14/24 06:32 Ondansetron Hcl Odt 4 Mg Tablet PO 4 mg Q6H PRN Administration nausea and vomiting Pantoprazole Sodium 40 mg 12/14/24 09:00 Pantoprazole 40 Mg Tablet PO QAM [facility] Prednisone 5 mg 12/14/24 08:00 Prednisone 5 Mg Tablet PO DAILY@0800 [facility] Fluticasone/Salmeterol 2 puff 12/14/24 08:00 Fluticasone/Salmeterol 115-21 Mcg Inhaler 1 Puff INHALATION Q12HRT [facility] Sertraline HCl 50 mg 12/14/24 09:00 Sertraline Hcl 50 Mg Tablet PO DAILY [facility] Timolol Maleate 2 drop 12/14/24 09:00 Timolol Maleate 0.5% Op Soln 5 Ml Bottle EACH EYE Q12HR [facility] Tramadol HCl 100 mg 12/14/24 03:00 Tramadol Hcl (*Crx) 50 Mg Tablet PO Q6H PRN Pain Rated 4-6 Trimethobenzamide HCl 200 mg 12/13/24 15:49 12/13/24 20:03 Trimethobenzamide Hcl 200 Mg/2 Ml Vial IM 200 mg Q6H PRN Administration Nausea And Vomiting Zolpidem Tartrate 10 mg 12/14/24 21:00 Zolpidem Tartrate (*Crx) 5 Mg Tablet PO [facility] Labs Labs: Laboratory Results - last 24 hr 12/13/24 12/13/24 12/13/24 14:11 15:30 17:25 WBC 11.1 H RBC 4.35 Hgb 14.5 Hct 42.1 MCV 96.8 MCH 33.3 MCHC 34.4 RDW 13.2 Plt Count 133 L MPV 10.1 Immature Gran % (Auto) 0.5 Neut % (Auto) 74.9 H Lymph % (Auto) 12.8 L [place] % (Auto) 10.4 H Eos % (Auto) 1.0 Baso % (Auto) 0.4 Lymph # (Auto) 1.42 [place] # (Auto) 1.2 H Eos # (Auto) 0.1 Baso # (Auto) 0.0 Abs Immat Gran (auto) 0.06 H Absolute Neuts (auto) 8.3 H Absolute Nucleated RBC 0.000 Nucleated RBC % 0.0 Sodium 137 Potassium 4.1 Chloride 102 Carbon Dioxide 25 Anion Gap 10 BUN 32 H D Creatinine 1.20 H Estim Creat Clear Calc 40 Estimated GFR 48 L Glucose 430 H POC Capillary Glucose 347 H Calcium 9.3 Total Bilirubin 0.8 AST 27 ALT 16 Alkaline Phosphatase 60 Total Protein 8.0 Albumin 4.4 Lipase < 10 L Urine Color Dark yellow Urine Appearance Clear Urine pH 8.0 Ur Specific [place] 1.018 Urine Protein Negative Urine Glucose (UA) 3+ H Urine Ketones 1+ H Ur Blood (Man) Trace Urine Nitrate Positive H Urine Bilirubin Negative Urine Urobilinogen 1.0 Add Ur Microanalysis Reviewed Leukocyte Esterase Rfl 1+ H Urine RBC 3-5 H Urine WBC 21-50 H Ur Squamous Epith Cells None seen Urine Bacteria None seen Urine Casts 0-2 12/13/24 12/13/24 12/14/24 19:51 23:49 05:11 WBC RBC Hgb Hct MCV MCH MCHC RDW Plt Count MPV Immature Gran % (Auto) Neut % (Auto) Lymph % (Auto) [place] % (Auto) Eos % (Auto) Baso % (Auto) Lymph # (Auto) [place] # (Auto) Eos # (Auto) Baso # (Auto) Abs Immat Gran (auto) Absolute Neuts (auto) Absolute Nucleated RBC Nucleated RBC % Sodium Potassium Chloride Carbon Dioxide Anion Gap BUN Creatinine Estim Creat Clear Calc Estimated GFR Glucose POC Capillary Glucose 297 H 231 H 179 H Calcium Total Bilirubin AST ALT Alkaline Phosphatase Total Protein Albumin Lipase Urine Color Urine Appearance Urine pH Ur Specific [place] Urine Protein Urine Glucose (UA) Urine Ketones Ur Blood (Man) Urine Nitrate Urine Bilirubin Urine Urobilinogen Add Ur Microanalysis Leukocyte Esterase Rfl Urine RBC Urine WBC Ur Squamous Epith Cells Urine Bacteria Urine Casts 12/14/24 05:35 WBC 9.7 RBC 4.25 Hgb 13.9 Hct 43.4 MCV 102.1 H D MCH 32.7 MCHC 32.0 RDW 13.9 Plt Count 141 L MPV 10.1 Immature Gran % (Auto) 0.6 H Neut % (Auto) 71.0 Lymph % (Auto) 18.7 [place] % (Auto) 9.1 H Eos % (Auto) 0.2 Baso % (Auto) 0.4 Lymph # (Auto) 1.80 [place] # (Auto) 0.9 H Eos # (Auto) 0.0 Baso # (Auto) 0.0 Abs Immat Gran (auto) 0.06 H Absolute Neuts (auto) 6.9 H Absolute Nucleated RBC 0.000 Nucleated RBC % 0.0 Sodium 139 Potassium 3.9 Chloride 103 Carbon Dioxide 24 Anion Gap 12 BUN 21 H D Creatinine 0.93 Estim Creat Clear Calc 50 Estimated GFR > 60 Glucose 178 H POC Capillary Glucose Calcium 8.4 Total Bilirubin AST ALT Alkaline Phosphatase Total Protein Albumin Lipase Urine Color Urine Appearance Urine pH Ur Specific [place] Urine Protein Urine Glucose (UA) Urine Ketones Ur Blood (Man) Urine Nitrate Urine Bilirubin Urine Urobilinogen Add Ur Microanalysis Leukocyte Esterase Rfl Urine RBC Urine WBC Ur Squamous Epith Cells Urine Bacteria Urine Casts Quality VTE Prophylaxis VTE prophylaxis: mechanical ordered
[2024-12-14 07:35] LABS: Glucose Point of Care 162 mg/dl (65-105)
[2024-12-14 08:00] VITALS: PULSE 100; RESP 14; O2SAT 91
[2024-12-14] MEDS: TRIMETHOBENZAMIDE HCL 200 MG/2 ML VIAL IM ×2 (09:24→20:41)
[2024-12-14 09:45] VITALS: BMI 24.7
[2024-12-14 11:12] LABS: Glucose Point of Care 166 mg/dl (65-105)
[2024-12-14] MEDS: TIMOLOL MALEATE 0.5% OP SOLN 5 ML BOTTLE 2 DROP EACH EYE ×2 (12:51→20:49)
[2024-12-14 14:00] VITALS: BP 152/74; PULSE 100; RESP 14; TEMP 36.4; O2SAT 91
[2024-12-14] MEDS: ONDANSETRON INJ 4 MG/2 ML VIAL IV PUSH ×2 (15:59→23:16)
[2024-12-14 16:23] LABS: Glucose Point of Care 187 mg/dl (65-105)
[2024-12-14] MEDS: FAMOTIDINE 20 MG/2 ML VIAL IV PUSH (17:51)
[2024-12-14] MEDS: DIVALPROEX SODIUM DR 250 MG TABEC 500 MG PO (17:56)
[2024-12-14] MEDS: GABAPENTIN 100 MG CAPSULE PO (17:58)
[2024-12-14] MEDS: LIPASE/AMYLASE/PROTEASE 12,000 UNITS CAP 5 CAP PO (17:58)
[2024-12-14] MEDS: ZOLPIDEM TARTRATE (*CRX) 5 MG TABLET 10 MG PO (20:30)
[2024-12-14] MEDS: MIRTAZAPINE 15 MG TABLET PO (20:30)
[2024-12-14] MEDS: carvediloL 6.25 MG TABLET PO (20:30)
[2024-12-14] MEDS: metroNIDAZOLE 70 GM VAG GEL.W.APPL 1 APPFUL VAGINAL (20:49)
[2024-12-14 21:02] VITALS: BP 155/81; PULSE 98; RESP 16; TEMP 36.2; O2SAT 95
--- NOTE | 2024-12-14 21:27 | PHAR ---
Home med verified envarsus xr 1mg tablets take 3 tablets by mouth daily before breakfast
[2024-12-15] VITALS (7 sets, daily range): BP systolic 147–178; BP diastolic 70–88; PULSE 96–113; RESP 16–18; TEMP 36.3–36.6; O2SAT 95–99
[2024-12-15 00:51] LABS: Glucose Point of Care 135 mg/dl (65-105)
[2024-12-15] MEDS: PIPERACILLN/TAZ 3.375GM/NS50ML 3.375 GM/50 ML BAG IVPB ×4 (02:29→20:27)
[2024-12-15] MEDS: traMADol HCL (*CRX) 50 MG TABLET 100 MG PO (05:12)
[2024-12-15 06:03] LABS: Basophils Percent Auto 0.6 % (0.2-1.2); Eosinophils Percent Auto 0.1 % (0-4.4); Hematocrit 36.6 % (37.0-47.0); Hemoglobin 11.8 g/dL (12.0-15.0); Immature Granulocyte Absolute 0.09 K/mm3 (0.00-0.031); Immature Granulocyte Percent A 1.3 % (0-0.5); Lymphocytes Absolute Auto 1.22 K/mm3 (0.9-3.2); Mean Corpuscular HGB Conc 32.2 g/dl (32-36); Mean Corpuscular Hemoglobin 33.3 pg (26-34); Mean Corpuscular Volume 103.4 fl (80-100); Mean Platelet Volume 10.1 fl (7.4-10.4); Monocytes Absolute Auto 0.5 K/mm3 (0.1-0.6); Monocytes Percent Auto 7.7 % (2.6-8.5); Neutrophils Absolute Auto 4.9 K/mm3 (1.3-6.7); Neutrophils Percent Auto 72.3 % (45.5-73.1); Platelet Count Result 118 k/mm3 (150-375); Red Blood Count 3.54 M/mm3 (4.2-5.4); Red Cell Distribution Width 13.5 % (11.5-14.5); White Blood Count 6.8 K/mm3 (4.5-10.0)
[2024-12-15 06:06] LABS: Glucose Point of Care 145 mg/dl (65-105)
[2024-12-15 06:14] LABS: Alanine Aminotransferase 15 U/L (6-35); Albumin Level 3.8 g/dL (3.5-5.1); Alkaline Phosphatase 50 U/L (38-126); Anion Gap 9 mmol/L (4-12); Aspartate Amino Transferase 42 U/L (14-36); Bilirubin,Total 0.7 mg/dL (0.2-1.3); Blood Urea Nitrogen 12 mg/dL (7-17); Calcium 8.3 mg/dL (8.4-10.2); Carbon Dioxide 24 mmol/L (22-30); Chloride 104 mmol/L (98-107); Estimated CRCL calculation 59 ml/min; Estimated Glomerular Filt Rate > 60; Glucose 132 mg/dL (65-110); Potassium 3.6 mmol/L (3.4-5.0); Sodium 137 mmol/L (137-145)
[2024-12-15] MEDS: HYDROmorphone HCL INJ (*CRX) 2 MG/ML VIAL 1 MG IV PUSH ×6 (06:20→20:28)
[2024-12-15] MEDS: TACROLIMUS 1 MG 3 EACH PO (06:20)
[2024-12-15] MEDS: SODIUM CHLORIDE 0.9% IV 1,000 ML 125 ML IV CONT (06:27)
[2024-12-15] MEDS: FLUTICASONE/SALMETEROL 115-21 MCG INHALER 1 PUFF 2 PUFF INHALATION ×2 (08:28→20:46)
--- NOTE | 2024-12-15 09:09 | P.PNIM_ITS ---
Progress Note: A&P Assessment and Plan (1) UTI (urinary tract infection): Code(s): N39.0 - Urinary tract infection, site not specified Status: Acute Assessment and Plan: IV Zosyn - reports feeling better on Fluid bolus initially IVF Awaiting UC results (2) Kidney transplant recipient: Code(s): Z94.0 - Kidney transplant status Status: Acute Assessment and Plan: With DAREK Aggressive fluid hydration Anti rejection drugs started - R kidney was removed due to [place] being on it, so she is left with her original L kidney and a transplanted kidney she reports is in her lower abd region Continue to trend daily labs, kidney labs WDL today (3) Hypertensive urgency: Code(s): I16.0 - Hypertensive urgency Status: Acute Assessment and Plan: Continue with home meds: Coreg -HTNive still but states that today she was able to keep her coreg down, denies sx, will continue to monitor Hydralazine p.r.n. (4) Type 1 diabetes mellitus: Code(s): E10.9 - Type 1 diabetes mellitus without complications Status: Acute Assessment and Plan: Lantus and SSI Q.6 Accu-Checks due to nausea vomiting - readings have been stable today Diet as tolerated (5) Hyperglycemia: Code(s): R73.9 - Hyperglycemia, unspecified Status: Acute Assessment and Plan: Likely secondary to infection, has improved Plan as above Plan Continue with IV abx, monitor VS, pain, blood sugar, and AM labs. Subjective Date/time seen: 12/15/24 1005 Interval history: Pt is a 49-year-old female who presents to the ED with worsening N/V/D. On 12/11/2024 the patient came to the emergency room was treated for UTI and sent home on Bactrim. Her cultures came back positive for E coli that is resistant to Bactrim so she presented back to the hospital for IV antibiotics. Patient states that she did vomit home however was several hours after she took her anti-rejection meds. She states that she has severe burning with urination. Due to allergies and kidney transplants we are limited on pain management. Lab work shows leukocytosis 11.1, BUN of 32, creatinine of 1.2 baseline being 0.63, glucose 430. Repeat UA pending In the ED she was given 2 L fluid bolus and started on Zosyn. Pt with a hx of kidney transplant, R kidney was removed due to [place] being on it, so she is left with her original L kidney and a transplanted kidney she reports is in her lower abd region. Pt feeling better today per her report. HTNive still but states that today she was able to keep her Coreg down, denies sx. Continue to trend labs, VS, IV abx, and await UC results. Review of Systems Review of Systems: 12 systems were reviewed and are negativ e except for as per HPI. Exam Narrative: Pt resting in bed upon exam Const: General: no acute distress and uncomfortable (semi) HENMT: Face/Nose/Sinus: Normal nares present Other: tacky mucus membranes Eyes: General: appearance normal, both eyes and all related structures Sclera: sclerae normal Neck: Neck: supple Resp: Effort & Inspection: normal respiratory effort Auscultation: clear to auscultation bilaterally Cardio: Rate: tachycardic Rhythm: regular rhythm GI: Inspection: non-distended Auscultation: abnormal bowel sounds (hypoactive) Other: Mild suprapubic TTP, mild CVA TTP Skin: General skin exam: normal color and no rashes or lesions noted Neuro: Speech: normal speech Motor exam (neuro): Normal motor muscle tone present throughout Extrem: General: normal to inspection Psych: Mental Status: mental status grossly normal Affect: normal affect Objective Data Vital Signs Vital Signs: Vital Signs - 24 hr 12/14/24 14:00 12/14/24 20:00 12/14/24 21:02 Temperature 97.5 F L 97.1 F L Pulse Rate 100 98 Respiratory Rate 14 16 Blood Pressure 152/74 H 155/81 H Pulse Oximetry 91 95 Oxygen Delivery Room Air 12/15/24 05:47 12/15/24 08:00 12/15/24 08:33 Temperature 97.9 F Pulse Rate 113 H 113 H Respiratory Rate 16 16 Blood Pressure 178/88 H Pulse Oximetry 95 95 99 Oxygen Delivery Room Air Room Air Intake/Output Intake/Output: Intake & Output 12/12/24 12/13/24 12/14/24 12/15/24 23:59 23:59 23:59 23:59 Intake Total 2100 4430 1150 Output Total 300 Balance 1800 4430 1150 Meds/Results Medications: Active Medications Generic Name Dose Route Start Last Admin Trade Name Freq PRN Reason Stop Dose Admin Acetaminophen 650 mg 12/13/24 15:23 Acetaminophen 325 Mg Tablet PO Q4H PRN Mild Pain (1-3) or Fever Alprazolam 0.5 mg 12/14/24 03:00 12/14/24 23:16 Alprazolam (*Crx) 0.5 Mg Tablet PO 0.5 mg TID PRN Administration Anxiety Lipase/Protease/Amylase 5 cap 12/14/24 08:00 12/14/24 17:58 Lipase/Amylase/Protease 12,000 Units Cap PO 5 cap TIDWM JJ Administration Aspirin 81 mg 12/14/24 09:00 12/14/24 12:50 Aspirin 81 Mg Enteric Tablet PO Not Given DAILY JJ Atorvastatin Calcium 20 mg 12/14/24 09:00 12/14/24 12:50 Atorvastatin 20 Mg Tablet PO Not Given DAILY JJ Azathioprine 50 mg 12/14/24 09:00 12/14/24 12:53 Azathioprine 50 Mg Tablet PO Not Given DAILY [facility]PL[facility] Carvedilol 6.25 mg 12/14/24 09:00 12/14/24 20:30 Carvedilol 6.25 Mg Tablet PO 6.25 mg Q12HR JJ Administration Dextrose 12.5 gm 12/13/24 15:44 Dextrose 50% 25 Gm/50 Ml Syringe IV PUSH PRN PRN Hypoglycemia Protocol Divalproex Sodium 500 mg 12/14/24 08:00 12/14/24 17:[address] 250 Mg Tabec PO 500 mg TIDWM JJ Administration Famotidine 20 mg 12/14/24 15:39 12/14/24 17:51 Famotidine 20 Mg/2 Ml Vial IV PUSH 20 mg Q12HR PRN Administration Heartburn Fentanyl Citrate 50 mcg 12/13/24 15:23 Fentanyl Citrate Inj (*Crx) 100 Mcg/2 Ml Vial IV PUSH Q2H PRN Pain Rated 7-10 Fluticasone Propionate 2 spray 12/14/24 03:00 Fluticasone Propionate 0.05% Na Spr 16 Gm Btl (*Bkc) NASAL BID PRN RHINITIS Furosemide 20 mg 12/14/24 09:00 12/14/24 12:50 Furosemide 20 Mg Tablet PO Not Given DAILY REPL[facility]ED [facility] Gabapentin 100 mg 12/14/24 09:00 12/14/24 17:58 Gabapentin 100 Mg Capsule PO 100 mg TID JJ Administration Glucagon 1 mg 12/13/24 15:44 Glucagon For Inj 1 Mg Vial IM PRN PRN Hypoglycemia Protocol Glucose 15 gm 12/13/24 15:44 Glucose Oral Gel 15 Gm Of Glucse In 37.5 Gm Tube PO PRN PRN Hypoglycemia Protocol Hydralazine HCl 10 mg 12/13/24 15:47 12/13/24 18:30 Hydralazine Hcl 20 Mg/Ml Vial IV PUSH 10 mg Q8H PRN Administration Blood Pressure - High Hydromorphone HCl 1 mg 12/13/24 15:48 12/15/24 06:20 Hydromorphone Hcl Inj (*Crx) 2 Mg/Ml Vial IV PUSH 1 mg Q2HR PRN Administration Pain Rated 6 or Greater Piperacillin/Tazobactam/Dextrose 3.375 gm in 50 mls @ 100 mls/hr 12/13/24 21:00 12/15/24 02:59 Zosyn 3.375 Gm/Ns 50 Ml IVPB Infused Q6H JJ Infusion Dextrose 1,000 mls @ 100 mls/hr 12/13/24 15:44 Dextrose 5% 1,000 Ml IVPB PRN PRN Hypoglycemia Protocol Sodium Chloride 1,000 mls @ 125 mls/hr 12/13/24 15:45 12/15/24 06:27 Normal Saline Iv IV CONT 125 mls/hr .Q8H JJ Administration Insulin Aspart 4 - 8 units 12/13/24 18:00 12/15/24 05:12 Insulin Aspart (*Bkc) 100 Units/Ml SUB-Q Not Given Q6HR JJ Protocol Insulin Glargine 24 units 12/13/24 21:00 12/15/24 01:10 Insulin Glargine (*Bkc) 100 Units/Ml SUB-Q Not Given HS JJ Metronidazole 1 appful 12/14/24 21:00 12/14/24 20:49 Metronidazole 70 Gm Vag Gel.W.Appl VAGINAL 1 appful HS JJ Administration Mirtazapine 15 mg 12/14/24 21:00 12/14/24 20:30 Mirtazapine 15 Mg Tablet PO 15 mg HS JJ Administration Montelukast Sodium 10 mg 12/14/24 09:00 12/14/24 12:50 Montelukast Sodium 10 Mg Tablet PO Not Given DAILY JJ Naloxone HCl 0.1 mg 12/13/24 15:44 Naloxone Hcl 0.4 Mg/Ml Vial IV PUSH Q2M PRN Opiate Reversal Home Med ( 3 mg 12/14/24 06:30 12/15/24 06:20 Tacrolimus [Envarsus PO 01/13/25 06:29 3 mg Xr] 1 Mg Tablet DAILY@0630 JJ Administration Extended Release 24 Hr) Ondansetron HCl 4 mg 12/14/24 15:39 12/14/24 23:16 Ondansetron Inj 4 Mg/2 Ml Vial IV PUSH 4 mg Q6H PRN Administration Nausea And Vomiting Pantoprazole Sodium 40 mg 12/14/24 09:00 12/14/24 12:51 Pantoprazole 40 Mg Tablet PO Not Given QAM JJ Prednisone 5 mg 12/14/24 08:00 12/14/24 12:53 Prednisone 5 Mg Tablet PO Not Given DAILY@0800 JJ Fluticasone/Salmeterol 2 puff 12/14/24 08:00 12/15/24 08:28 Fluticasone/Salmeterol 115-21 Mcg Inhaler 1 Puff INHALATION 2 puff Q12HRT JJ Administration Sertraline HCl 50 mg 12/14/24 09:00 12/14/24 12:51 Sertraline Hcl 50 Mg Tablet PO Not Given DAILY REPLACED BY [facility] Timolol Maleate 2 drop 12/14/24 09:00 12/14/24 20:49 Timolol Maleate 0.5% Op Soln 5 Ml Bottle EACH EYE 2 drop Q12HR JJ Administration Tramadol HCl 100 mg 12/14/24 03:00 12/15/24 05:12 Tramadol Hcl (*Crx) 50 Mg Tablet PO 100 mg Q6H PRN Administration Pain Rated 4-6 Trimethobenzamide HCl 200 mg 12/13/24 15:49 12/14/24 20:41 Trimethobenzamide Hcl 200 Mg/2 Ml Vial IM 200 mg Q6H PRN Administration Nausea And Vomiting Zolpidem Tartrate 10 mg 12/14/24 21:00 12/14/24 20:30 Zolpidem Tartrate (*Crx) 5 Mg Tablet PO 10 mg HS JJ Administration Labs Labs: Laboratory Results - last 24 hr 12/14/24 12/14/24 12/15/24 11:05 16:16 00:39 WBC RBC Hgb Hct MCV MCH MCHC RDW Plt Count MPV Immature Gran % (Auto) Neut % (Auto) Lymph % (Auto) [place] % (Auto) Eos % (Auto) Baso % (Auto) Lymph # (Auto) [place] # (Auto) Eos # (Auto) Baso # (Auto) Abs Immat Gran (auto) Absolute Neuts (auto) Absolute Nucleated RBC Nucleated RBC % Sodium Potassium Chloride Carbon Dioxide Anion Gap BUN Creatinine Estim Creat Clear Calc Estimated GFR Glucose POC Capillary Glucose 166 H 187 H 135 H Calcium Total Bilirubin AST ALT Alkaline Phosphatase Total Protein Albumin 12/15/24 12/15/24 05:10 05:41 WBC 6.8 RBC 3.54 L Hgb 11.8 L Hct 36.6 L MCV 103.4 H MCH 33.3 MCHC 32.2 RDW 13.5 Plt Count 118 L MPV 10.1 Immature Gran % (Auto) 1.3 H Neut % (Auto) 72.3 Lymph % (Auto) 18.0 L [place] % (Auto) 7.7 Eos % (Auto) 0.1 Baso % (Auto) 0.6 Lymph # (Auto) 1.22 [place] # (Auto) 0.5 Eos # (Auto) 0.0 Baso # (Auto) 0.0 Abs Immat Gran (auto) 0.09 H Absolute Neuts (auto) 4.9 Absolute Nucleated RBC 0.000 Nucleated RBC % 0.0 Sodium 137 Potassium 3.6 Chloride 104 Carbon Dioxide 24 Anion Gap 9 BUN 12 D Creatinine 0.79 Estim Creat Clear Calc 59 Estimated GFR > 60 Glucose 132 H POC Capillary Glucose 145 H Calcium 8.3 L Total Bilirubin 0.7 AST 42 H ALT 15 Alkaline Phosphatase 50 Total Protein 8.0 Albumin 3.8 Quality VTE Prophylaxis VTE prophylaxis: mechanical ordered
[2024-12-15] MEDS: azaTHIOprine 50 MG TABLET PO (09:26)
[2024-12-15] MEDS: FUROSEMIDE 20 MG TABLET PO (09:26)
[2024-12-15] MEDS: MONTELUKAST SODIUM 10 MG TABLET PO (09:26)
[2024-12-15] MEDS: carvediloL 6.25 MG TABLET PO ×2 (09:26→20:27)
[2024-12-15] MEDS: predniSONE 5 MG TABLET PO (09:26)
[2024-12-15] MEDS: LIPASE/AMYLASE/PROTEASE 12,000 UNITS CAP 5 CAP PO ×2 (09:26→17:03)
[2024-12-15] MEDS: DIVALPROEX SODIUM DR 250 MG TABEC 500 MG PO ×2 (09:26→17:03)
[2024-12-15] MEDS: ASPIRIN 81 MG ENTERIC TABLET PO (09:26)
[2024-12-15] MEDS: PANTOPRAZOLE 40 MG TABLET PO (09:26)
[2024-12-15] MEDS: GABAPENTIN 100 MG CAPSULE PO ×2 (09:27→17:03)
[2024-12-15] MEDS: ATORVASTATIN 20 MG TABLET PO (09:27)
[2024-12-15] MEDS: SERTRALINE HCL 50 MG TABLET PO (09:27)
[2024-12-15] MEDS: FAMOTIDINE 20 MG/2 ML VIAL IV PUSH (09:27)
[2024-12-15] MEDS: ONDANSETRON INJ 4 MG/2 ML VIAL IV PUSH ×3 (09:27→20:26)
[2024-12-15] MEDS: TIMOLOL MALEATE 0.5% OP SOLN 5 ML BOTTLE 2 DROP EACH EYE ×2 (09:30→20:28)
[2024-12-15 11:37] LABS: Glucose Point of Care 127 mg/dl (65-105)
[2024-12-15 17:13] LABS: Glucose Point of Care 151 mg/dl (65-105)
[2024-12-15] MEDS: metroNIDAZOLE 70 GM VAG GEL.W.APPL 1 APPFUL VAGINAL (20:27)
[2024-12-15] MEDS: MIRTAZAPINE 15 MG TABLET PO (20:27)
[2024-12-15] MEDS: ALPRAZolam (*CRX) 0.5 MG TABLET PO (20:28)
[2024-12-15] MEDS: ZOLPIDEM TARTRATE (*CRX) 5 MG TABLET 10 MG PO (20:28)
[2024-12-15 23:42] LABS: Glucose Point of Care 167 mg/dl (65-105)
[2024-12-16] VITALS (7 sets, daily range): BP systolic 112–151; BP diastolic 48–83; PULSE 90–108; RESP 14–16; TEMP 36.1–36.3; O2SAT 92–99
[2024-12-16] MEDS: PIPERACILLN/TAZ 3.375GM/NS50ML 3.375 GM/50 ML BAG IVPB (02:32)
[2024-12-16 05:01] LABS: Glucose Point of Care 116 mg/dl (65-105)
[2024-12-16] MEDS: HYDROmorphone HCL INJ (*CRX) 2 MG/ML VIAL 1 MG IV PUSH ×5 (06:20→22:08)
[2024-12-16 06:21] LABS: Basophils Absolute Auto 0.1 K/mm3 (0.0-0.1); Basophils Percent Auto 0.7 % (0.2-1.2); Eosinophils Percent Auto 0.3 % (0-4.4); Hematocrit 34.4 % (37.0-47.0); Hemoglobin 11.1 g/dL (12.0-15.0); Immature Granulocyte Absolute 0.05 K/mm3 (0.00-0.031); Immature Granulocyte Percent A 0.7 % (0-0.5); Lymphocytes Absolute Auto 1.76 K/mm3 (0.9-3.2); Mean Corpuscular HGB Conc 32.3 g/dl (32-36); Mean Corpuscular Hemoglobin 32.9 pg (26-34); Mean Corpuscular Volume 102.1 fl (80-100); Monocytes Absolute Auto 0.9 K/mm3 (0.1-0.6); Neutrophils Percent Auto 59.3 % (45.5-73.1); Nucleated Red Blood Cells Perc 0.4 % (0.0-0.2); Platelet Count Result 125 k/mm3 (150-375); Red Blood Count 3.37 M/mm3 (4.2-5.4); Red Cell Distribution Width 13.3 % (11.5-14.5); White Blood Count 6.8 K/mm3 (4.5-10.0)
[2024-12-16] MEDS: TACROLIMUS 1 MG 3 EACH PO (06:21)
[2024-12-16 06:51] LABS: Alanine Aminotransferase 16 U/L (6-35); Albumin Level 3.8 g/dL (3.5-5.1); Alkaline Phosphatase 44 U/L (38-126); Anion Gap 9 mmol/L (4-12); Aspartate Amino Transferase 44 U/L (14-36); Bilirubin,Total 0.5 mg/dL (0.2-1.3); Blood Urea Nitrogen 13 mg/dL (7-17); Calcium 8.7 mg/dL (8.4-10.2); Carbon Dioxide 26 mmol/L (22-30); Chloride 100 mmol/L (98-107); Estimated CRCL calculation 57 ml/min; Estimated Glomerular Filt Rate > 60; Glucose 131 mg/dL (65-110); Potassium 3.5 mmol/L (3.4-5.0); Sodium 135 mmol/L (137-145)
[2024-12-16] MEDS: SERTRALINE HCL 50 MG TABLET PO (07:57)
[2024-12-16] MEDS: LIPASE/AMYLASE/PROTEASE 12,000 UNITS CAP 5 CAP PO ×3 (07:57→17:38)
[2024-12-16] MEDS: DIVALPROEX SODIUM DR 250 MG TABEC 500 MG PO ×3 (07:57→17:39)
[2024-12-16] MEDS: predniSONE 5 MG TABLET PO (07:57)
[2024-12-16] MEDS: FUROSEMIDE 20 MG TABLET PO (07:57)
[2024-12-16] MEDS: GABAPENTIN 100 MG CAPSULE PO ×3 (07:57→17:39)
[2024-12-16] MEDS: PANTOPRAZOLE 40 MG TABLET PO (07:58)
[2024-12-16] MEDS: ATORVASTATIN 20 MG TABLET PO (07:58)
[2024-12-16] MEDS: ASPIRIN 81 MG ENTERIC TABLET PO (07:58)
[2024-12-16] MEDS: azaTHIOprine 50 MG TABLET PO (07:58)
[2024-12-16] MEDS: MONTELUKAST SODIUM 10 MG TABLET PO (07:58)
[2024-12-16] MEDS: carvediloL 6.25 MG TABLET PO ×2 (07:58→22:08)
[2024-12-16] MEDS: TIMOLOL MALEATE 0.5% OP SOLN 5 ML BOTTLE 2 DROP EACH EYE ×2 (07:59→22:06)
[2024-12-16] MEDS: FLUTICASONE/SALMETEROL 115-21 MCG INHALER 1 PUFF 2 PUFF INHALATION ×2 (08:25→20:01)
[2024-12-16] MEDS: LIDOCAINE 1% LOCAL INJ 2 ML AMPUL 5 ML INFILTRATE (10:00)
[2024-12-16] MEDS: ERTAPENEM 1 GM/NS 50 ML 1 GM/50 ML BAG IVPB (10:27)
[2024-12-16] MEDS: levETIRAcetam 500 MG TABLET PO ×2 (10:28→22:08)
[2024-12-16] MEDS: ALPRAZolam (*CRX) 0.5 MG TABLET PO ×2 (10:31→22:09)
[2024-12-16] MEDS: ONDANSETRON INJ 4 MG/2 ML VIAL IV PUSH (10:42)
[2024-12-16 11:54] LABS: Glucose Point of Care 186 mg/dl (65-105)
--- NOTE | 2024-12-16 12:40 | P.PNIM_ITS ---
Progress Note: A&P Assessment and Plan (1) UTI (urinary tract infection): Code(s): N39.0 - Urinary tract infection, site not specified Status: Acute Assessment and Plan: * Urine culture grew E coli * Mid line placed today due to being unable to place IV. * Switch antibiotic to Ertapenem 1 gram IVPB daily. Add Florastor 250 mg PO BID. (2) Kidney transplant recipient: Code(s): Z94.0 - Kidney transplant status Status: Acute Assessment and Plan: * DAREK resolved, Creatinine 0.64. Patient had received aggressive hydration. * Anti rejection drugs started - R kidney was removed due to [place] being on it, so she is left with her original L kidney and a transplanted kidney she reports is in her lower abd region * Continue to trend daily labs, kidney labs WDL today (3) Hypertensive urgency: Code(s): I16.0 - Hypertensive urgency Status: Acute Assessment and Plan: * Continue with home meds: Coreg * BP 112/48-151/83 * Hydralazine p.r.n. (4) Type 1 diabetes mellitus: Code(s): E10.9 - Type 1 diabetes mellitus without complications Status: Acute Assessment and Plan: * Lantus and SSI * Q.6 Accu-Checks due to nausea vomiting - readings have been stable today * Diet as tolerated (5) Hyperglycemia: Code(s): R73.9 - Hyperglycemia, unspecified Status: Acute Assessment and Plan: * Likely secondary to infection, has improved * Plan as above Plan Continue with IV abx, monitor VS, pain, blood sugar, and AM labs. Subjective Date/time seen: 12/16/24 12:40 Interval history: Patient reports 12 episodes of diarrhea earlier today, patient reported to nurse that diarrhea is chronic. Patient reports pain in abdomen and back that is an 8 , constant, and sharp at times. Patient denies chest pain, palpitations, nausea, or vomiting. Reports burning with urination. Review of Systems Review of Systems: All systems reviewed & are unremarkable except as noted in HPI and below Exam Const: General: no acute distress and uncomfortable Resp: Effort & Inspection: normal respiratory effort Auscultation: clear to auscultation bilaterally Cardio: Rate: regular rate Rhythm: regular rhythm GI: GI Palp: Yes Soft to palpation Auscultation: normal bowel sounds Other: Mild suprapubic TTP, mild CVA TTP Neuro: Speech: normal speech Extrem: General: no pedal edema Psych: Mental Status: mental status grossly normal Affect: normal affect Objective Data Vital Signs Vital Signs: Vital Signs - 24 hr 12/15/24 13:08 12/15/24 20:10 12/15/24 20:50 Temperature 97.3 F L Pulse Rate 96 109 H 101 H Respiratory Rate 18 18 16 Blood Pressure 147/70 H 150/74 H Pulse Oximetry 95 96 12/15/24 20:52 12/16/24 05:01 Temperature 97.0 F L Pulse Rate 102 H 97 Respiratory Rate 18 16 Blood Pressure 151/83 H Pulse Oximetry 94 Intake/Output Intake/Output: Intake & Output 12/13/24 12/14/24 12/15/24 12/16/24 23:59 23:59 23:59 23:59 Intake Total 2100 4430 1780 530 Output Total 300 Balance 1800 4430 1780 530 Meds/Results Medications: Active Medications Generic Name Dose Route Start Last Admin Trade Name Freq PRN Reason Stop Dose Admin Acetaminophen 650 mg 12/13/24 15:23 Acetaminophen 325 Mg Tablet PO Q4H PRN Mild Pain (1-3) or Fever Alprazolam 0.5 mg 12/14/24 03:00 12/16/24 10:31 Alprazolam (*Crx) 0.5 Mg Tablet PO 0.5 mg TID PRN Administration Anxiety Lipase/Protease/Amylase 5 cap 12/14/24 08:00 12/16/24 11:16 Lipase/Amylase/Protease 12,000 Units Cap PO 5 cap TIDWM JJ Administration Aspirin 81 mg 12/14/24 09:00 12/16/24 07:58 Aspirin 81 Mg Enteric Tablet PO 81 mg DAILY JJ Administration Atorvastatin Calcium 20 mg 12/14/24 09:00 12/16/24 07:58 Atorvastatin 20 Mg Tablet PO 20 mg DAILY JJ Administration Azathioprine 50 mg 12/14/24 09:00 12/16/24 07:58 Azathioprine 50 Mg Tablet PO 50 mg DAILY JJ Administration Carvedilol 6.25 mg 12/14/24 09:00 12/16/24 07:58 Carvedilol 6.25 Mg Tablet PO 6.25 mg Q12HR JJ Administration Dextrose 12.5 gm 12/13/24 15:44 Dextrose 50% 25 Gm/50 Ml Syringe IV PUSH PRN PRN Hypoglycemia Protocol Divalproex Sodium 500 mg 12/14/24 08:00 12/16/24 11:[address] 250 Mg Tabec PO 500 mg TIDWM JJ Administration Famotidine 20 mg 12/14/24 15:39 12/15/24 09:27 Famotidine 20 Mg/2 Ml Vial IV PUSH 20 mg Q12HR PRN Administration Heartburn Fluticasone Propionate 2 spray 05/19/25 03:00 Fluticasone Propionate 0.05% Na Spr 16 Gm Btl (*Bkc) NASAL BID PRN RHINITIS Furosemide 20 mg 12/14/24 09:00 12/16/24 07:57 Furosemide 20 Mg Tablet PO 20 mg DAILY JJ Administration Gabapentin 100 mg 12/14/24 09:00 12/16/24 07:57 Gabapentin 100 Mg Capsule PO 100 mg TID JJ Administration Glucagon 1 mg 12/13/24 15:44 Glucagon For Inj 1 Mg Vial IM PRN PRN Hypoglycemia Protocol Glucose 15 gm 12/13/24 15:44 Glucose Oral Gel 15 Gm Of Glucse In 37.5 Gm Tube PO PRN PRN Hypoglycemia Protocol Hydralazine HCl 10 mg 12/13/24 15:47 12/13/24 18:30 Hydralazine Hcl 20 Mg/Ml Vial IV PUSH 10 mg Q8H PRN Administration Blood Pressure - High Hydromorphone HCl 1 mg 12/15/24 15:17 12/16/24 10:28 Hydromorphone Hcl Inj (*Crx) 2 Mg/Ml Vial IV PUSH 1 mg Q3-4H PRN Administration Pain Rated 6 or Greater Dextrose 1,000 mls @ 100 mls/hr 12/13/24 15:44 Dextrose 5% 1,000 Ml IVPB PRN PRN Hypoglycemia Protocol Ertapenem 1 gm in 50 mls @ 100 mls/hr 12/16/24 10:00 12/16/24 10:27 Invanz 1 Gm/Ns 50 Ml IVPB 12/22/24 09:29 100 mls/hr DAILY JJ Administration Insulin Aspart 4 - 8 units 12/13/24 18:00 12/16/24 05:32 Insulin Aspart (*Bkc) 100 Units/Ml SUB-Q Not Given Q6HR JJ Protocol Insulin Glargine 24 units 12/13/24 21:00 12/15/24 20:27 Insulin Glargine (*Bkc) 100 Units/Ml SUB-Q Not Given HS JJ Levetiracetam 500 mg 12/16/24 10:00 12/16/24 10:28 Levetiracetam 500 Mg Tablet PO 12/23/24 21:01 500 mg Q12HR JJ Administration Metronidazole 1 appful 12/14/24 21:00 12/15/24 20:27 Metronidazole 70 Gm Vag Gel.W.Appl VAGINAL 1 appful HS JJ Administration Mirtazapine 15 mg 12/14/24 21:00 12/15/24 20:27 Mirtazapine 15 Mg Tablet PO 15 mg HS JJ Administration Montelukast Sodium 10 mg 12/14/24 09:00 12/16/24 07:58 Montelukast Sodium 10 Mg Tablet PO 10 mg DAILY JJ Administration Naloxone HCl 0.1 mg 12/13/24 15:44 Naloxone Hcl 0.4 Mg/Ml Vial IV PUSH Q2M PRN Opiate Reversal Home Med ( 3 mg 12/14/24 06:30 12/16/24 06:21 Tacrolimus [Envarsus PO 01/13/25 06:29 3 mg Xr] 1 Mg Tablet DAILY@0630 JJ Administration Extended Release 24 Hr) Ondansetron HCl 4 mg 12/14/24 15:39 12/16/24 10:42 Ondansetron Inj 4 Mg/2 Ml Vial IV PUSH 4 mg Q6H PRN Administration Nausea And Vomiting Pantoprazole Sodium 40 mg 12/14/24 09:00 12/16/24 07:58 Pantoprazole 40 Mg Tablet PO 40 mg QAM JJ Administration Prednisone 5 mg 12/14/24 08:00 12/16/24 07:57 Prednisone 5 Mg Tablet PO 5 mg DAILY@0800 JJ Administration Fluticasone/Salmeterol 2 puff 12/14/24 08:00 12/16/24 08:25 Fluticasone/Salmeterol 115-21 Mcg Inhaler 1 Puff INHALATION 2 puff Q12HRT JJ Administration Sertraline HCl 50 mg 12/14/24 09:00 12/16/24 07:57 Sertraline Hcl 50 Mg Tablet PO 50 mg DAILY JJ Administration Sodium Chloride 10 ml 12/16/24 14:00 Saline Lock Flush IV PUSH Q8HR JJ Sodium Chloride 10 ml 12/16/24 10:27 Saline Lock Flush IV PUSH PRN PRN Flush Sodium Chloride 20 ml 12/16/24 10:27 Saline Lock Flush IV PUSH PRN PRN after blood draws Timolol Maleate 2 drop 12/14/24 09:00 12/16/24 07:59 Timolol Maleate 0.5% Op Soln 5 Ml Bottle EACH EYE 2 drop Q12HR JJ Administration Tramadol HCl 100 mg 12/14/24 03:00 12/15/24 05:12 Tramadol Hcl (*Crx) 50 Mg Tablet PO 100 mg Q6H PRN Administration Pain Rated 4-6 Trimethobenzamide HCl 200 mg 12/13/24 15:49 12/14/24 20:41 Trimethobenzamide Hcl 200 Mg/2 Ml Vial IM 200 mg Q6H PRN Administration Nausea And Vomiting Zolpidem Tartrate 10 mg 12/14/24 21:00 12/15/24 20:28 Zolpidem Tartrate (*Crx) 5 Mg Tablet PO 10 mg HS JJ Administration Labs Labs: Laboratory Results - last 24 hr 12/15/24 12/15/24 12/16/24 16:51 23:10 04:38 WBC RBC Hgb Hct MCV MCH MCHC RDW Plt Count MPV Immature Gran % (Auto) Neut % (Auto) Lymph % (Auto) [place] % (Auto) Eos % (Auto) Baso % (Auto) Lymph # (Auto) [place] # (Auto) Eos # (Auto) Baso # (Auto) Abs Immat Gran (auto) Absolute Neuts (auto) Absolute Nucleated RBC Nucleated RBC % Sodium Potassium Chloride Carbon Dioxide Anion Gap BUN Creatinine Estim Creat Clear Calc Estimated GFR Glucose POC Capillary Glucose 151 H 167 H 116 H Calcium Total Bilirubin AST ALT Alkaline Phosphatase Total Protein Albumin 12/16/24 12/16/24 05:45 11:52 WBC 6.8 RBC 3.37 L Hgb 11.1 L Hct 34.4 L MCV 102.1 H MCH 32.9 MCHC 32.3 RDW 13.3 Plt Count 125 L MPV 10.0 Immature Gran % (Auto) 0.7 H Neut % (Auto) 59.3 Lymph % (Auto) 26.0 [place] % (Auto) 13.0 H Eos % (Auto) 0.3 Baso % (Auto) 0.7 Lymph # (Auto) 1.76 [place] # (Auto) 0.9 H Eos # (Auto) 0.0 Baso # (Auto) 0.1 Abs Immat Gran (auto) 0.05 H Absolute Neuts (auto) 4.0 Absolute Nucleated RBC 0.030 H Nucleated RBC % 0.4 H Sodium 135 L Potassium 3.5 Chloride 100 Carbon Dioxide 26 Anion Gap 9 BUN 13 Creatinine 0.82 Estim Creat Clear Calc 57 Estimated GFR > 60 Glucose 131 H POC Capillary Glucose 186 H Calcium 8.7 Total Bilirubin 0.5 AST 44 H ALT 16 Alkaline Phosphatase 44 Total Protein 7.0 Albumin 3.8 Quality VTE Prophylaxis VTE prophylaxis: mechanical ordered
[2024-12-16] MEDS: SALINE LOCK FLUSH 10 ML IV PUSH ×2 (14:58→22:09)
[2024-12-16] MEDS: SACCHAROMYCES BOULARDII 250 MG CAPSULE PO (17:39)
[2024-12-16 18:11] LABS: Glucose Point of Care 250 mg/dl (65-105)
[2024-12-16] MEDS: INSULIN ASPART (*BKC) 100 UNITS/ML SUB-Q (19:42)
[2024-12-16] MEDS: INSULIN GLARGINE (*BKC) 100 UNITS/ML 24 UNITS SUB-Q (22:07)
[2024-12-16] MEDS: ZOLPIDEM TARTRATE (*CRX) 5 MG TABLET 10 MG PO (22:08)
[2024-12-16] MEDS: MIRTAZAPINE 15 MG TABLET PO (22:09)
[2024-12-16] MEDS: metroNIDAZOLE 70 GM VAG GEL.W.APPL 1 APPFUL VAGINAL (22:09)
[2024-12-17] VITALS (7 sets, daily range): BP systolic 124–134; BP diastolic 69–78; PULSE 74–90; RESP 18–20; TEMP 36.4–36.8; O2SAT 95–100
[2024-12-17] LABS: Glucose Point of Care 173 mg/dl (65-105)
[2024-12-17 05:35] LABS: Glucose Point of Care 101 mg/dl (65-105)
[2024-12-17] MEDS: HYDROmorphone HCL INJ (*CRX) 2 MG/ML VIAL 1 MG IV PUSH ×5 (06:02→22:58)
[2024-12-17] MEDS: TACROLIMUS 1 MG 3 EACH PO (06:03)
[2024-12-17] MEDS: SALINE LOCK FLUSH 10 ML IV PUSH ×3 (06:03→21:21)
[2024-12-17 06:16] LABS: Basophils Percent Auto 0.8 % (0.2-1.2); Eosinophils Absolute Auto 0.1 K/mm3 (0-0.3); Hematocrit 35.2 % (37.0-47.0); Hemoglobin 11.4 g/dL (12.0-15.0); Immature Granulocyte Absolute 0.05 K/mm3 (0.00-0.031); Lymphocytes Absolute Auto 1.82 K/mm3 (0.9-3.2); Lymphocytes Percent Auto 37.2 % (18.3-44.2); Mean Corpuscular HGB Conc 32.4 g/dl (32-36); Mean Corpuscular Hemoglobin 32.8 pg (26-34); Mean Corpuscular Volume 101.1 fl (80-100); Mean Platelet Volume 9.8 fl (7.4-10.4); Monocytes Absolute Auto 0.8 K/mm3 (0.1-0.6); Neutrophils Absolute Auto 2.1 K/mm3 (1.3-6.7); Nucleated Red Blood Cells Perc 0.6 % (0.0-0.2); Platelet Count Result 139 k/mm3 (150-375); Red Blood Count 3.48 M/mm3 (4.2-5.4); Red Cell Distribution Width 13.7 % (11.5-14.5); White Blood Count 4.9 K/mm3 (4.5-10.0)
[2024-12-17 06:25] LABS: Alanine Aminotransferase 15 U/L (6-35); Albumin Level 3.4 g/dL (3.5-5.1); Alkaline Phosphatase 38 U/L (38-126); Anion Gap 6 mmol/L (4-12); Aspartate Amino Transferase 32 U/L (14-36); Bilirubin,Total 0.3 mg/dL (0.2-1.3); Blood Urea Nitrogen 12 mg/dL (7-17); Calcium 8.9 mg/dL (8.4-10.2); Carbon Dioxide 34 mmol/L (22-30); Chloride 101 mmol/L (98-107); Estimated CRCL calculation 52 ml/min; Estimated Glomerular Filt Rate > 60; Glucose 100 mg/dL (65-110); Potassium 3.3 mmol/L (3.4-5.0); Sodium 141 mmol/L (137-145)
[2024-12-17] MEDS: DIVALPROEX SODIUM DR 250 MG TABEC 500 MG PO ×3 (08:08→16:39)
[2024-12-17] MEDS: ASPIRIN 81 MG ENTERIC TABLET PO (08:08)
[2024-12-17] MEDS: SACCHAROMYCES BOULARDII 250 MG CAPSULE PO ×2 (08:08→16:39)
[2024-12-17] MEDS: levETIRAcetam 500 MG TABLET PO ×2 (08:08→20:26)
[2024-12-17] MEDS: ATORVASTATIN 20 MG TABLET PO (08:09)
[2024-12-17] MEDS: LIPASE/AMYLASE/PROTEASE 12,000 UNITS CAP 5 CAP PO ×3 (08:09→16:39)
[2024-12-17] MEDS: predniSONE 5 MG TABLET PO (08:09)
[2024-12-17] MEDS: PANTOPRAZOLE 40 MG TABLET PO (08:09)
[2024-12-17] MEDS: FUROSEMIDE 20 MG TABLET PO (08:09)
[2024-12-17] MEDS: MONTELUKAST SODIUM 10 MG TABLET PO (08:09)
[2024-12-17] MEDS: SERTRALINE HCL 50 MG TABLET PO (08:09)
[2024-12-17] MEDS: carvediloL 6.25 MG TABLET PO ×2 (08:09→20:25)
[2024-12-17] MEDS: GABAPENTIN 100 MG CAPSULE PO ×3 (08:09→16:39)
[2024-12-17] MEDS: azaTHIOprine 50 MG TABLET PO (08:09)
[2024-12-17] MEDS: ERTAPENEM 1 GM/NS 50 ML 1 GM/50 ML BAG IVPB (08:12)
[2024-12-17] MEDS: TIMOLOL MALEATE 0.5% OP SOLN 5 ML BOTTLE 2 DROP EACH EYE ×2 (08:14→20:31)
[2024-12-17] MEDS: FLUTICASONE/SALMETEROL 115-21 MCG INHALER 1 PUFF 2 PUFF INHALATION ×2 (08:34→19:46)
[2024-12-17] MEDS: POTASSIUM CHLORIDE 20 MEQ ER TABLET 40 MEQ PO (11:40)
[2024-12-17 11:44] LABS: Glucose Point of Care 136 mg/dl (65-105)
--- NOTE | 2024-12-17 12:18 | P.PNIM_ITS ---
Progress Note: A&P Assessment and Plan (1) UTI (urinary tract infection): Code(s): N39.0 - Urinary tract infection, site not specified Status: Acute Assessment and Plan: * Urine culture grew E coli * Mid line placed 12/16/24 due to being unable to place IV. * Switch antibiotic to Ertapenem 1 gram IVPB daily for 7 days total. Florastor 250 mg PO BID. (2) Kidney transplant recipient: Code(s): Z94.0 - Kidney transplant status Status: Acute Assessment and Plan: * DAREK resolved, Creatinine 0.90. Patient had received aggressive hydration. * Anti rejection drugs started - R kidney was removed due to [place] being on it, so she is left with her original L kidney and a transplanted kidney she reports is in her lower abd region * Continue to trend daily labs, kidney labs WDL today (3) Hypertensive urgency: Code(s): I16.0 - Hypertensive urgency Status: Acute Assessment and Plan: * Continue with home meds: Coreg * BP 134/78. * Hydralazine p.r.n. (4) Type 1 diabetes mellitus: Code(s): E10.9 - Type 1 diabetes mellitus without complications Status: Acute Assessment and Plan: * Lantus and SSI * Q.6 Accu-Checks due to nausea vomiting - readings have been stable today * Diet as tolerated (5) Hyperglycemia: Code(s): R73.9 - Hyperglycemia, unspecified Status: Acute Assessment and Plan: * Likely secondary to infection, has improved * Plan as above (6) Hypokalemia: Code(s): E87.6 - Hypokalemia Status: Acute Assessment and Plan: * Potassium 3.3. * Potassium Chloride 40 meq PO x 1. * Trend level. Plan Continue with IV abx, monitor VS, pain, blood sugar, and AM labs. Subjective Date/time seen: 12/17/24 12:18 Interval history: Patient reports feeling better today. She reports right sided back pain that is a 6 , constant, and like a knife twisting at times. Patient reports slight burning with urination. Diarrhea improving to 2 episodes this morning. Patient denies chest pain, palpitations, headache, dizziness, nausea, or vomiting. Patient agreeable to try to switch to oral pain medications. Review of Systems Review of Systems: All systems reviewed & are unremarkable except as noted in HPI and below Exam Const: General: no acute distress and uncomfortable Resp: Effort & Inspection: normal respiratory effort Auscultation: clear to auscultation bilaterally Cardio: Rate: regular rate Rhythm: regular rhythm GI: GI Palp: Yes Soft to palpation Auscultation: normal bowel sounds : Other: right side CVA tenderness. Neuro: Speech: normal speech Extrem: General: no pedal edema Psych: Mental Status: mental status grossly normal Affect: normal affect Objective Data Vital Signs Vital Signs: Vital Signs - 24 hr 12/16/24 13:59 12/16/24 20:00 12/16/24 20:01 Temperature 97.3 F L Pulse Rate 90 108 H 95 Respiratory Rate 16 16 14 Blood Pressure 112/48 L Pulse Oximetry 92 99 Oxygen Delivery Room Air 12/16/24 20:05 12/16/24 20:42 12/16/24 22:08 Temperature 97.3 F L Pulse Rate 95 100 108 H Respiratory Rate 16 16 Blood Pressure 144/81 H Pulse Oximetry 99 Oxygen Delivery 12/17/24 06:00 12/17/24 08:09 12/17/24 08:25 Temperature 97.7 F Pulse Rate 90 84 Respiratory Rate 18 Blood Pressure 134/78 Pulse Oximetry 99 Oxygen Delivery Room Air 12/17/24 08:35 12/17/24 08:35 Temperature Pulse Rate 74 Respiratory Rate 20 Blood Pressure Pulse Oximetry 95 Oxygen Delivery Room Air Intake/Output Intake/Output: Intake & Output 12/14/24 12/15/24 12/16/24 12/17/24 23:59 23:59 23:59 23:59 Intake Total 4430 1780 1300 590 Balance 4430 1780 1300 590 Meds/Results Medications: Active Medications Generic Name Dose Route Start Last Admin Trade Name Freq PRN Reason Stop Dose Admin Acetaminophen 650 mg 12/13/24 15:23 Acetaminophen 325 Mg Tablet PO Q4H PRN Mild Pain (1-3) or Fever Alprazolam 0.5 mg 12/14/24 03:00 12/16/24 22:09 Alprazolam (*Crx) 0.5 Mg Tablet PO 0.5 mg TID PRN Administration Anxiety Lipase/Protease/Amylase 5 cap 12/14/24 08:00 12/17/24 11:46 Lipase/Amylase/Protease 12,000 Units Cap PO 5 cap TIDWM JJ Administration Aspirin 81 mg 12/14/24 09:00 12/17/24 08:08 Aspirin 81 Mg Enteric Tablet PO 81 mg DAILY JJ Administration Atorvastatin Calcium 20 mg 12/14/24 09:00 12/17/24 08:09 Atorvastatin 20 Mg Tablet PO 20 mg DAILY JJ Administration Azathioprine 50 mg 12/14/24 09:00 12/17/24 08:09 Azathioprine 50 Mg Tablet PO 50 mg DAILY JJ Administration Carvedilol 6.25 mg 12/14/24 09:00 12/17/24 08:09 Carvedilol 6.25 Mg Tablet PO 6.25 mg Q12HR JJ Administration Dextrose 12.5 gm 12/13/24 15:44 Dextrose 50% 25 Gm/50 Ml Syringe IV PUSH PRN PRN Hypoglycemia Protocol Divalproex Sodium 500 mg 12/14/24 08:00 12/17/24 11:[address] 250 Mg Tabec PO 500 mg TIDWM JJ Administration Famotidine 20 mg 12/14/24 15:39 12/15/24 09:27 Famotidine 20 Mg/2 Ml Vial IV PUSH 20 mg Q12HR PRN Administration Heartburn Fluticasone Propionate 2 spray 12/14/24 03:00 Fluticasone Propionate 0.05% Na Spr 16 Gm Btl (*Bkc) NASAL BID PRN RHINITIS Furosemide 20 mg 12/14/24 09:00 12/17/24 08:09 Furosemide 20 Mg Tablet PO 20 mg DAILY JJ Administration Gabapentin 100 mg 12/14/24 09:00 12/17/24 11:46 Gabapentin 100 Mg Capsule PO 100 mg TID JJ Administration Glucagon 1 mg 12/13/24 15:44 Glucagon For Inj 1 Mg Vial IM PRN PRN Hypoglycemia Protocol Glucose 15 gm 12/13/24 15:44 Glucose Oral Gel 15 Gm Of Glucse In 37.5 Gm Tube PO PRN PRN Hypoglycemia Protocol Hydralazine HCl 10 mg 12/13/24 15:47 12/13/24 18:30 Hydralazine Hcl 20 Mg/Ml Vial IV PUSH 10 mg Q8H PRN Administration Blood Pressure - High Hydromorphone HCl 1 mg 12/15/24 15:17 12/17/24 11:40 Hydromorphone Hcl Inj (*Crx) 2 Mg/Ml Vial IV PUSH 1 mg Q3-4H PRN Administration Pain Rated 6 or Greater Dextrose 1,000 mls @ 100 mls/hr 12/13/24 15:44 Dextrose 5% 1,000 Ml IVPB PRN PRN Hypoglycemia Protocol Ertapenem 1 gm in 50 mls @ 100 mls/hr 12/16/24 10:00 12/17/24 08:12 Invanz 1 Gm/Ns 50 Ml IVPB 12/22/24 09:29 100 mls/hr DAILY JJ Administration Insulin Aspart 4 - 8 units 12/13/24 18:00 12/17/24 11:41 Insulin Aspart (*Bkc) 100 Units/Ml SUB-Q Not Given Q6HR [facility] Protocol Insulin Glargine 24 units 12/13/24 21:00 12/16/24 22:07 Insulin Glargine (*Bkc) 100 Units/Ml SUB-Q 24 units HS JJ Administration Levetiracetam 500 mg 12/16/24 10:00 12/17/24 08:08 Levetiracetam 500 Mg Tablet PO 12/23/24 21:01 500 mg Q12HR JJ Administration Metronidazole 1 appful 12/14/24 21:00 12/16/24 22:09 Metronidazole 70 Gm Vag Gel.W.Appl VAGINAL 1 appful HS JJ Administration Mirtazapine 15 mg 12/14/24 21:00 12/16/24 22:09 Mirtazapine 15 Mg Tablet PO 15 mg HS JJ Administration Montelukast Sodium 10 mg 12/14/24 09:00 12/17/24 08:09 Montelukast Sodium 10 Mg Tablet PO 10 mg DAILY JJ Administration Naloxone HCl 0.1 mg 12/13/24 15:44 Naloxone Hcl 0.4 Mg/Ml Vial IV PUSH Q2M PRN Opiate Reversal Home Med ( 3 mg 12/14/24 06:30 12/17/24 06:03 Tacrolimus [Envarsus PO 01/13/25 06:29 3 mg Xr] 1 Mg Tablet DAILY@0630 JJ Administration Extended Release 24 Hr) Ondansetron HCl 4 mg 12/14/24 15:39 12/16/24 10:42 Ondansetron Inj 4 Mg/2 Ml Vial IV PUSH 4 mg Q6H PRN Administration Nausea And Vomiting Pantoprazole Sodium 40 mg 12/14/24 09:00 12/17/24 08:09 Pantoprazole 40 Mg Tablet PO 40 mg QAM JJ Administration Prednisone 5 mg 12/14/24 08:00 12/17/24 08:09 Prednisone 5 Mg Tablet PO 5 mg DAILY@0800 JJ Administration Saccharomyces Boulardii 250 mg 12/16/24 17:00 12/17/24 08:08 Saccharomyces Boulardii 250 Mg Capsule PO 250 mg BID JJ Administration Fluticasone/Salmeterol 2 puff 12/14/24 08:00 12/17/24 08:34 Fluticasone/Salmeterol 115-21 Mcg Inhaler 1 Puff INHALATION 2 puff Q12HRT JJ Administration Sertraline HCl 50 mg 12/14/24 09:00 12/17/24 08:09 Sertraline Hcl 50 Mg Tablet PO 50 mg DAILY JJ Administration Sodium Chloride 10 ml 12/16/24 14:00 12/17/24 11:47 Saline Lock Flush IV PUSH 10 ml Q8HR JJ Administration Sodium Chloride 10 ml 12/16/24 10:27 Saline Lock Flush IV PUSH PRN PRN Flush Sodium Chloride 20 ml 12/16/24 10:27 Saline Lock Flush IV PUSH PRN PRN after blood draws Timolol Maleate 2 drop 12/14/24 09:00 12/17/24 08:14 Timolol Maleate 0.5% Op Soln 5 Ml Bottle EACH EYE 2 drop Q12HR JJ Administration Tramadol HCl 100 mg 12/14/24 03:00 12/15/24 05:12 Tramadol Hcl (*Crx) 50 Mg Tablet PO 100 mg Q6H PRN Administration Pain Rated 4-6 Trimethobenzamide HCl 200 mg 12/13/24 15:49 12/14/24 20:41 Trimethobenzamide Hcl 200 Mg/2 Ml Vial IM 200 mg Q6H PRN Administration Nausea And Vomiting Zolpidem Tartrate 10 mg 12/14/24 21:00 12/16/24 22:08 Zolpidem Tartrate (*Crx) 5 Mg Tablet PO 10 mg HS JJ Administration Labs Labs: Laboratory Results - last 24 hr 12/16/24 12/16/24 12/17/24 18:08 23:56 05:26 WBC 4.9 RBC 3.48 L Hgb 11.4 L Hct 35.2 L MCV 101.1 H MCH 32.8 MCHC 32.4 RDW 13.7 Plt Count 139 L MPV 9.8 Immature Gran % (Auto) 1.0 H Neut % (Auto) 43.0 L Lymph % (Auto) 37.2 [place] % (Auto) 17.0 H Eos % (Auto) 1.0 Baso % (Auto) 0.8 Lymph # (Auto) 1.82 [place] # (Auto) 0.8 H Eos # (Auto) 0.1 Baso # (Auto) 0.0 Abs Immat Gran (auto) 0.05 H Absolute Neuts (auto) 2.1 Absolute Nucleated RBC 0.030 H Nucleated RBC % 0.6 H Sodium 141 Potassium 3.3 L Chloride 101 Carbon Dioxide 34 H Anion Gap 6 BUN 12 Creatinine 0.90 Estim Creat Clear Calc 52 Estimated GFR > 60 Glucose 100 POC Capillary Glucose 250 H 173 H Calcium 8.9 Total Bilirubin 0.3 AST 32 ALT 15 Alkaline Phosphatase 38 Total Protein 7.0 Albumin 3.4 L 12/17/24 12/17/24 05:27 11:41 WBC RBC Hgb Hct MCV MCH MCHC RDW Plt Count MPV Immature Gran % (Auto) Neut % (Auto) Lymph % (Auto) [place] % (Auto) Eos % (Auto) Baso % (Auto) Lymph # (Auto) [place] # (Auto) Eos # (Auto) Baso # (Auto) Abs Immat Gran (auto) Absolute Neuts (auto) Absolute Nucleated RBC Nucleated RBC % Sodium Potassium Chloride Carbon Dioxide Anion Gap BUN Creatinine Estim Creat Clear Calc Estimated GFR Glucose POC Capillary Glucose 101 136 H Calcium Total Bilirubin AST ALT Alkaline Phosphatase Total Protein Albumin Quality VTE Prophylaxis VTE prophylaxis: mechanical ordered
[2024-12-17] MEDS: oxyCODONE/ACETAMINOPHEN (*CRX) 5-325 MG TABLET 1 TABLET PO ×2 (13:59→20:25)
[2024-12-17 16:56] LABS: Glucose Point of Care 203 mg/dl (65-105)
[2024-12-17] MEDS: INSULIN ASPART (*BKC) 100 UNITS/ML SUB-Q (16:59)
[2024-12-17] MEDS: MIRTAZAPINE 15 MG TABLET PO (20:26)
[2024-12-17] MEDS: metroNIDAZOLE 70 GM VAG GEL.W.APPL 1 APPFUL VAGINAL (20:27)
[2024-12-17] MEDS: WITCH HAZEL 40 PADS 1 PAD (20:33)
[2024-12-17 21:07] LABS: Glucose Point of Care 277 mg/dl (65-105)
[2024-12-17] MEDS: INSULIN GLARGINE (*BKC) 100 UNITS/ML 24 UNITS SUB-Q (21:11)
[2024-12-17] MEDS: ZOLPIDEM TARTRATE (*CRX) 5 MG TABLET 10 MG PO (22:58)
[2024-12-18 05:31] LABS: Eosinophils Percent Auto 0.7 % (0-4.4); Hematocrit 34.1 % (37.0-47.0); Hemoglobin 11.3 g/dL (12.0-15.0); Immature Granulocyte Absolute 0.02 K/mm3 (0.00-0.031); Immature Granulocyte Percent A 0.5 % (0-0.5); Lymphocytes Absolute Auto 1.59 K/mm3 (0.9-3.2); Lymphocytes Percent Auto 38.8 % (18.3-44.2); Mean Corpuscular HGB Conc 33.1 g/dl (32-36); Mean Corpuscular Hemoglobin 33.1 pg (26-34); Mean Platelet Volume 9.7 fl (7.4-10.4); Monocytes Absolute Auto 0.7 K/mm3 (0.1-0.6); Monocytes Percent Auto 16.8 % (2.6-8.5); Neutrophils Absolute Auto 1.7 K/mm3 (1.3-6.7); Neutrophils Percent Auto 42.2 % (45.5-73.1); Nucleated Red Blood Cells Perc 0.7 % (0.0-0.2); Platelet Count Result 155 k/mm3 (150-375); Red Blood Count 3.41 M/mm3 (4.2-5.4); Red Cell Distribution Width 13.8 % (11.5-14.5); White Blood Count 4.1 K/mm3 (4.5-10.0)
[2024-12-18 05:34] VITALS: BP 128/89; PULSE 82; RESP 18; TEMP 36.7; O2SAT 98
[2024-12-18 05:45] LABS: Alanine Aminotransferase 15 U/L (6-35); Albumin Level 3.4 g/dL (3.5-5.1); Alkaline Phosphatase 37 U/L (38-126); Anion Gap 7 mmol/L (4-12); Aspartate Amino Transferase 28 U/L (14-36); Bilirubin,Total 0.3 mg/dL (0.2-1.3); Blood Urea Nitrogen 16 mg/dL (7-17); Calcium 8.6 mg/dL (8.4-10.2); Carbon Dioxide 31 mmol/L (22-30); Chloride 99 mmol/L (98-107); Estimated CRCL calculation 53 ml/min; Estimated Glomerular Filt Rate > 60; Glucose 323 mg/dL (65-110); Potassium 3.5 mmol/L (3.4-5.0); Sodium 137 mmol/L (137-145)
[2024-12-18] MEDS: TACROLIMUS 1 MG 3 EACH PO (05:57)
[2024-12-18] MEDS: SALINE LOCK FLUSH 10 ML IV PUSH ×2 (06:00→12:46)
[2024-12-18 07:47] LABS: Glucose Point of Care 241 mg/dl (65-105)
[2024-12-18] MEDS: predniSONE 5 MG TABLET PO (08:32)
[2024-12-18] MEDS: traMADol HCL (*CRX) 50 MG TABLET 100 MG PO (08:32)
[2024-12-18] MEDS: LIPASE/AMYLASE/PROTEASE 12,000 UNITS CAP 5 CAP PO ×2 (08:33→12:45)
[2024-12-18] MEDS: oxyCODONE/ACETAMINOPHEN (*CRX) 5-325 MG TABLET 1 TABLET PO ×2 (08:34→12:44)
[2024-12-18] MEDS: DIVALPROEX SODIUM DR 250 MG TABEC 500 MG PO ×2 (08:34→12:44)
[2024-12-18] MEDS: POTASSIUM CHLORIDE 20 MEQ ER TABLET PO (08:35)
[2024-12-18] MEDS: FLUTICASONE/SALMETEROL 115-21 MCG INHALER 1 PUFF 2 PUFF INHALATION (08:38)
[2024-12-18] MEDS: ONDANSETRON INJ 4 MG/2 ML VIAL IV PUSH (08:47)
[2024-12-18 08:52] VITALS: PULSE 82
[2024-12-18] MEDS: SACCHAROMYCES BOULARDII 250 MG CAPSULE PO (08:52)
[2024-12-18] MEDS: ERTAPENEM 1 GM/NS 50 ML 1 GM/50 ML BAG IVPB (08:52)
[2024-12-18] MEDS: carvediloL 6.25 MG TABLET PO (08:52)
[2024-12-18] MEDS: PANTOPRAZOLE 40 MG TABLET PO (08:52)
[2024-12-18] MEDS: ASPIRIN 81 MG ENTERIC TABLET PO (08:52)
[2024-12-18] MEDS: FUROSEMIDE 20 MG TABLET PO (08:52)
[2024-12-18] MEDS: azaTHIOprine 50 MG TABLET PO (08:52)
[2024-12-18] MEDS: ATORVASTATIN 20 MG TABLET PO (08:52)
[2024-12-18] MEDS: MONTELUKAST SODIUM 10 MG TABLET PO (08:52)
[2024-12-18] MEDS: SERTRALINE HCL 50 MG TABLET PO (08:52)
[2024-12-18] MEDS: GABAPENTIN 100 MG CAPSULE PO ×2 (08:52→12:44)
[2024-12-18] MEDS: levETIRAcetam 500 MG TABLET PO (08:53)
[2024-12-18] MEDS: TIMOLOL MALEATE 0.5% OP SOLN 5 ML BOTTLE 2 DROP EACH EYE (08:54)
[2024-12-18] MEDS: INSULIN ASPART (*BKC) 100 UNITS/ML SUB-Q (08:56)
--- NOTE | 2024-12-18 10:10 | PM.DS ---
DS: Admitting Diagnosis Discharge Date 12/18/2024 Admitting Diagnosis UTI, nausea, vomiting. DS: Discharge Diagnosis Discharge Diagnosis (1) UTI (urinary tract infection): Code(s): N39.0 - Urinary tract infection, site not specified Status: Acute (2) Kidney transplant recipient: Code(s): Z94.0 - Kidney transplant status Status: Acute (3) Hypertensive urgency: Code(s): I16.0 - Hypertensive urgency Status: Acute (4) Type 1 diabetes mellitus: Code(s): E10.9 - Type 1 diabetes mellitus without complications Status: Acute (5) Hypokalemia: Code(s): E87.6 - Hypokalemia Status: Acute DS: Summary Hospital Course Hospital Course: 49 year old presented with nausea and vomiting. Initial lab work showed: Lab work shows leukocytosis 11.1, BUN of 32, creatinine of 1.2 baseline being 0.63, glucose 430. Urine dark yellow, 3+ glucose, 1+ ketones, trace blood, + nitrate, 1+ leuko,RBC 3-5, WBC 21-50. Urine culture grew Escherichia Coli. Patient had nausea, vomiting, and diarrhea that improved. Patient required IV and oral pain medications. Patient is being treated with IV antibiotics. Midline placed. Patient going home today, she will have 4 more days of IV antibiotics. WBC improved from 11.1>4.1. Teaching done by [facility] prior to discharge. Status at Discharge Functional status at discharge: independent ambulation Overall status at discharge: patient is progressing back to baseline Time Spent with Patient Time attestation: Total time spent providing and/or coordinating discharge services: Time spent: Greater than 30 minutes Exam Const: General: no acute distress and uncomfortable Resp: Effort & Inspection: normal respiratory effort Auscultation: clear to auscultation bilaterally Cardio: Rate: regular rate Rhythm: regular rhythm GI: GI Palp: Yes Soft to palpation Auscultation: normal bowel sounds Other: right side CVA tenderness. Extrem: General: no pedal edema Psych: Mental Status: mental status grossly normal Affect: normal affect DS: Data Data Completed and Pending Labs on day of discharge: Labs from last 24 hours 12/18/24 12/18/24 12/17/24 07:27 04:58 20:43 WBC 4.1 L RBC 3.41 L Hgb 11.3 L Hct 34.1 L MCV 100.0 MCH 33.1 MCHC 33.1 RDW 13.8 Plt Count 155 MPV 9.7 Immature Gran % (Auto) 0.5 Neut % (Auto) 42.2 L Lymph % (Auto) 38.8 Buchanan % (Auto) 16.8 H Eos % (Auto) 0.7 Baso % (Auto) 1.0 Lymph # (Auto) 1.59 Buchanan # (Auto) 0.7 H Eos # (Auto) 0.0 Baso # (Auto) 0.0 Abs Immat Gran (auto) 0.02 Absolute Neuts (auto) 1.7 Absolute Nucleated RBC 0.030 H Nucleated RBC % 0.7 H Sodium 137 Potassium 3.5 Chloride 99 Carbon Dioxide 31 H Anion Gap 7 BUN 16 Creatinine 0.88 Estim Creat Clear Calc 53 Estimated GFR > 60 Glucose 323 H POC Capillary Glucose 241 H 277 H Calcium 8.6 Total Bilirubin 0.3 AST 28 ALT 15 Alkaline Phosphatase 37 L Total Protein 7.0 Albumin 3.4 L 12/17/24 12/17/24 16:47 11:41 WBC RBC Hgb Hct MCV MCH MCHC RDW Plt Count MPV Immature Gran % (Auto) Neut % (Auto) Lymph % (Auto) Buchanan % (Auto) Eos % (Auto) Baso % (Auto) Lymph # (Auto) Buchanan # (Auto) Eos # (Auto) Baso # (Auto) Abs Immat Gran (auto) Absolute Neuts (auto) Absolute Nucleated RBC Nucleated RBC % Sodium Potassium Chloride Carbon Dioxide Anion Gap BUN Creatinine Estim Creat Clear Calc Estimated GFR Glucose POC Capillary Glucose 203 H 136 H Calcium Total Bilirubin AST ALT Alkaline Phosphatase Total Protein Albumin Discharge Plan Discharge Attending physician on discharge: Francisco Trinidad Discharging Clinician: Callie Ye Anticipated Discharge Date/Time: 12/18/24 14:00 Patient Disposition: Home Activity: may shower Diet: as tolerated and heart healthy Discharge Instructions: Per Care Coordination, patient to discharge with home infusion through [facility] services.( [phone] Please fax discharge instructions and medication sheets to . Pt. to have midline catheter removed upon completion of therapy by [facility] Vascular Access department on 12/22/24 at 1030. Report to registration and IV will be discontinued at 11:00 am. Please call the department at [phone] with any questions. Keep Midline clean and dry. Monitor for redness, swelling, drainage, or temp >101. If develop call provider. Take medication as prescribed. Report if you have any burning with urination, blood in urine, or fever >101. Follow instructions given to you regarding care for your midline and your infusions. Thank you for entrusting [facility] with your healthcare! Patient Instructions: Antibiotic Form, Urinary Tract Infection in Women (DC) Patient Language: Maltese Stand Alone Forms: General Discharge Information Follow-up/Referrals: Nga,Ramon Cedeno MD [Primary Care Provider] - 1 Week Discharge Medications: New oxycodone-acetaminophen 5-325 mg Tablet 1 tablet PO Q4H PRN (Reason: Pain Rated 7-10) Qty: 10 0RF levetiracetam [Keppra] 500 mg Tablet 500 mg PO Q12HR Qty: 10 0RF Saccharomyces boulardii [Florastor] 250 mg Capsule 250 mg PO BID Qty: 14 0RF ertapenem 1 gram recon soln 1 g IV Q24H Qty: 4 0RF Continued zolpidem [Ambien] 10 mg tablet 10 mg PO HS azathioprine 50 mg tablet 50 mg PO DAILY aspirin [Adult Aspirin Regimen] 81 mg tablet,delayed release (DR/EC) 81 mg PO DAILY omeprazole 20 mg capsule,delayed release(DR/EC) 20 mg PO DAILY atorvastatin 20 mg Tablet 20 mg PO DAILY cyanocobalamin (vitamin B-12) 500 mcg Tablet 1,000 mcg PO DAILY montelukast 10 mg Tablet 10 mg PO DAILY gabapentin 100 mg Capsule 100 mg PO TID epinephrine 0.3 mg/0.3 mL Auto-Injector 0.3 mg IM Q5-15M PRN (Reason: Anaphylaxis) Patient Comments: Hasn't taken in years Rx Instructions: do not exceed 3 doses per episode sertraline 50 mg Tablet 50 mg PO DAILY (DME) pen needle, diabetic [BD Ultra-Fine Mini Pen Needle] 31 gauge x 3/16 Needle MISCELLANEOUS fluticasone furoate-vilanterol [Breo Ellipta] 100-25 mcg/dose Blister With Device 1 inh INHALATION DAILY Rx Instructions: INHALE 1 PUFF BY MOUTH DAILY- RINSE MOUTH WITH WATER AFTER USE. DO NOT SWALLOW (DME) FreeStyle Lynda 14 Day Sensor Kit MISCELLANEOUS tramadol 50 mg Tablet 100 mg PO Q6H PRN (Reason: Pain) cholecalciferol (vitamin D3) [Vitamin D3] 50 mcg (2,000 unit) Tablet 50 mcg PO DAILY insulin glargine U-300 conc [Toujeo SoloStar U-300 Insulin] 300 unit/mL (1.5 mL) Insulin Pen 24 unit SUBCUT DAILY Rx Instructions: INJECT 28 UNITS UNDER SKIN ONCE DAILY. MAX OF 30 UNITS PER DAY prednisone 5 mg tablet 5 mg PO DAILY divalproex 500 mg tablet,delayed release (DR/EC) 500 mg PO TID alprazolam 0.5 mg tablet 0.5 mg PO TID PRN (Reason: Anxiety) timolol maleate 0.5 % drops 2 drp EACH EYE BID Envarsus XR 1 mg tablet extended release 24 hr 3 mg PO DAILY Rx Instructions: TAKE 3 1MG TABLETS BY MOUTH IN THE RN OBSERVATION BEFORE BREAKFAST. carvedilol [Coreg] 6.25 mg tablet 6.25 mg PO DAILY Baqsimi 3 mg/actuation spray,non-aerosol 3 mg INTRANASAL PRN PRN (Reason: Hypoglycemia) fluticasone propionate 50 mcg/actuation Diller,Suspension 2 spray INTRANASAL BID PRN (Reason: RHINITIS) Rx Instructions: administer 2 sprays into each nostril 2 times a day as needed for rhinits insulin lispro 100 unit/mL insulin pen, half-unit See Rx Instructions .ROUTE .COMPLEX Rx Instructions: 1:13 carb ratio with breakfast, 1:15 carb ratio with lunch and 1:13 carb ratio with supper plus sliding scale 1 unit for every 50 points greater than 150; MDD is 30 units furosemide [Lasix] 20 mg tablet 20 mg PO DAILY ondansetron 4 mg tablet,disintegrating 4 mg PO Q6H PRN (Reason: nausea and vomiting) Qty: 10 0RF Zenpep 60,000-189,600- 252,600 unit capsule,delayed release(DR/EC) 1 cap PO .ac Qty: 300 4RF Rx Instructions: administer with meals and/or snacks mirtazapine 15 mg tablet See Rx Instructions .ROUTE .COMPLEX Qty: 90 1RF Dose Instruction: TAKE 1 TABLET BY MOUTH AT BEDTIME. Rx Instructions: TAKE 1 TABLET BY MOUTH AT BEDTIME. Discontinued biotin 5 mg Tablet 5 mg PO HS Date of admission: 12/14/24 10:22 Primary Care Provider: Nga,Ramon Cedeno Admitting Provider: Lawrence Hernández Attending physician on admission: Mayra Diaz Condition: Improved
[2024-12-18 11:34] LABS: Glucose Point of Care 67 mg/dl (65-105)
[2024-12-18 12:26] LABS: Glucose Point of Care 122 mg/dl (65-105)
[2024-12-18] MEDS: hydrALAZINE HCL 20 MG/ML VIAL 10 MG IV PUSH (13:37)
[2024-12-18 13:43] VITALS: BP 178/98; PULSE 79; RESP 16; TEMP 36.3; O2SAT 100
[2024-12-18 14:51] VITALS: BP 156/83
== END 2024-12-18 16:00 | disposition home or self-care (01) | DRG 690 ==
LOC: ANHED 12:21 → ANH3MEDSUR 16:29
PROVIDERS: Nurse Practitioner Gerontology; Student in an Organized Health Care Education/Training Program; Admitting Provider Internal Medicine; Emergency Provider Emergency Medicine; PCP Internal Medicine; Visit Provider Nurse Practitioner Family
DX: N39.0 Urinary tract infection, site not specified (principal); Z16.24 Resistance to multiple antibiotics; Z94.0 Kidney transplant status; B96.20 Unspecified Escherichia coli [E. coli] as the cause of diseases classified elsewhere; I10 Essential (primary) hypertension; E10.21 Type 1 diabetes mellitus with diabetic nephropathy; E87.6 Hypokalemia; E10.65 Type 1 diabetes mellitus with hyperglycemia; E10.43 Type 1 diabetes mellitus with diabetic autonomic (poly)neuropathy; I16.0 Hypertensive urgency; J44.9 Chronic obstructive pulmonary disease, unspecified; K31.84 Gastroparesis; Z79.4 Long term (current) use of insulin; Z79.85 Long-term (current) use of injectable non-insulin antidiabetic drugs; Z90.5 Acquired absence of kidney; Z87.891 Personal history of nicotine dependence
CPT/HCPCS: 36415; 36569; 80048; 80053; 81001; 82948; 83690; 85025; 87086; 94640; 96361; 96365; 96375; 96376; 99285; A9270; C1751; G0378; J0360; J1171; J1335; J1815; J2003; J2405; J2543; J2550; J3010; J3250; J7030; J7512

== ENCOUNTER 2024-12-23 11:26 | Outpatient (CLI) | payer MEDICARE, MEDICAID, SELFPAY ==
--- OUTSIDE RECORDS SUMMARY | 2024-12-23 11:30 | XMS_ITS | Referral Summary ---
Author Organization [facility] Address [address] [place] [address] Care Team Providers Care Retail Account Manager Name Role Phone Ramon Sylvester MD Primary Care Provider [phone] Burak Blue MD Unavailable [phone] Juana Jimenez RN Unavailable Sylwia García MD Unavailable [phone] Igor Yeager DO Unavailable Cristina Boyer RN Unavailable Cyn Fang NP Unavailable Encounters Date Type Department Care Team Description 12/17/2024 Telephone [facility] [address] [place] [address] Ramon Sylvester MD Home Iv therapy request from [facility] 12/13/2024 Orders Only [facility] [address] [place] [address] Ramon Sylvester MD 12/04/2024 3:00 PM CDT Office Visit [facility] Endocrinology Metabolism and Lipid [address] [facility] 13th [place] [address] [place] [address] Gavi Cervantes NP Type 1 diabetes mellitus with other specified complication (HCC) (Primary Dx); [facility] current use of insulin (HCC); Hyperlipidemia, unspecified hyperlipidemia type 11/17/2024 3:00 PM CDT Office Visit [facility] [address] [facility] [address] [place] [address] Ramon Sylvester MD Visit for screening mammogram (Primary Dx); 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, unspecified laterality (HCC); Renal transplant recipient; Type 1 diabetes mellitus with other specified complication (HCC); Essential hypertension; Chronic obstructive pulmonary disease, unspecified COPD type (HCC) 11/05/2024 Results Follow-Up [facility] [address] [place] [address] Ramon Sylvester MD [facility] 11/03/2024 Orders Only [facility] Nephrology [address] [facility] 5th [place] [address] [place] [address] Jose Rafael Ramos MD 09/25/2024 Orders Only [facility] Endocrinology Metabolism and Lipid [address] [facility] 13th [place] [address] [place] [address] Drew Godoy MD 09/25/2024 Telephone [facility] Endocrinology Metabolism and Lipid [address] [facility] 13th [place] [address] [place] [address] Patricia Ravi CPhT Freesetyle lynda 3 plus refills from Last [...] (3 mg total) by mouth early childhood educator aide before breakfast DO NOT TAKE ON 11/28, [...] Ultra-Fine Mini Pen Needle) 31 gauge x 16 needleIndications :Type 1 diabetes mellitus with other [...] 3 Active blood-glucose meter,continuous (FreeStyle Lynda 3 [place]) [facility] [place] [place] Use as directed to check blood sugar [...] MOUTH EVERY DAY 90 capsule 3 Active montelukast (SINGULAIR) 10 mg tablet TAKE [...] for sleep 30 tablet 1 025 Active azaTHIOprine (IMURAN) 50 mg tabletIndications :Kidney replaced by transplant TAKE 1 TABLET BY MOUTH EVERY DAY 100 tablet 3 025 Active magnesium oxide (MAG-OX) 400 mg (241.3 mg elemental magnesium) tablet TAKE 1 TABLET BY MOUTH EVERY DAY 30 tablet 2 025 Active traMADoL (ULTRAM) 50 mg tablet Take 2 tablets (100 mg total) by mouth every 6 (six) hours as needed for pain 240 tablet 025 Active ALPRAZolam (XANAX) 0.5 mg tabletIndications :Anxiety TAKE 1 TABLET (0.5 MG TOTAL) BY MOUTH 3 (THREE) TIMES A DAY NEEDED FOR ANXIETY. 90 tablet 025 Active azaTHIOprine (IMURAN) 50 mg tabletIndications :Kidney replaced by transplant TAKE 1 TABLET BY MOUTH EVERY DAY 100 tablet 3 024 2024 Discontinued magnesium oxide (MAG-OX) 400 mg (241.3 mg elemental magnesium) tabletIndications :hypomagnesemia Take 1 tablet (400 mg total) by mouth daily 30 tablet 2 025 2024 Discontinued traMADoL (ULTRAM) 50 mg tablet Take 2 tablets (100 mg total) by mouth every 6 (six) hours as needed for pain 240 tablet 025 2024 Discontinued ALPRAZolam (XANAX) 0.5 mg tabletIndications :Anxiety Take 1 tablet (0.5 mg total) by mouth 3 (three) times a day as needed for anxiety 90 tablet 025 2024 Discontinued Active Problems Patient Care Coordination No te Formatting of this note migh t be different from the original. Lab: [facility]- [phone] Standing Orders q-monthly FK, q3-HgbA1C. Exp. 06/16/25 Home Health: [facility] Local Pharmacy:[facility] Specialty Pharmacy: [facility] Problem Noted Date Diagnosed Date Pancreatic insufficiency 07/11/2024 Localized edema 01/22/2024 Assessment & Plan (01/22/2024 4:11 PM CDT): Continue furosemide Abnormal urinalysis/ UTI 11/26/2023 Assessment & Plan (11/29/2023 12:12 AM CDT): Reports experiencing burning sensation during urination and pain during urination for more than 2-3 months and has had multiple visit at [place] [facility] in [place] with multiple abnormal urinalyses and [...] home) Assessment & Plan (06/25/2023 3:24 PM VIAL GAUGER): Continue Ambien Assessment & Plan (02/24/2023 2:03 AM CDT): Cont home ambien PRN, reduce 10mg -> 5mg Liver lesion, right lobe 10/06/2022 [facility] current 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 Change Lantus from hs to AM to decrease overnight lows. Assessment & Plan (11/05/2022 9:19 AM CDT): Need to minimize risk of hypoglycemia. Assessment & Plan (06/07/2022 5:23 PM VIAL GAUGER): Now improved, but still need to minimize [...] hypoglycemia Assessment & Plan (08/08/2021 3:28 PM VIAL GAUGER): -Affects post meal glucose readings -Closely monitor [...] 3:25 PM CDT): S/p right nephrectomy of wr[place] right kidney. POD1 N/V and Abd pain. [...] glucoses. Assessment & Plan (06/07/2022 5:24 PM VIAL GAUGER): This affects her ability to see a [...] Stable. Assessment & Plan (06/03/2023 5:34 AM VIAL GAUGER): Previous history of smoking. - Continue home inhalers and singulair. Essential hypertension 11/15/2019 Assessment & Plan (11/17/2024 3:59 PM CDT): BP at target Assessment & Plan (06/03/2023 5:41 AM VIAL GAUGER): Hold amlodipine for soft blood pressures. Assessment [...] 11/15/2019 Assessment & Plan (06/03/2023 5:43 AM VIAL GAUGER): Continue home statin. Assessment & Plan (02/24/2023 2:01 AM CDT): Cont home atorva 20mg. Assessment & Plan (11/05/2022 9:21 AM CDT): On atorvastatin 20mg. Optimize glycemic control. 10/2022- TG 173, HDL 66, LDL 66 Assessment & Plan (06/07/2022 5:29 PM VIAL GAUGER): Continue statin therapy (atorvastatin 20mg) and optimize [...] stable. 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 Assessment & Plan (06/07/2022 5:38 PM VIAL GAUGER): Hemoglobin A1c increased to 8.5% on 05/22/2022. [...] insulin. Assessment & Plan (08/08/2021 3:28 PM VIAL GAUGER): -Currently taking MDI and using Lynda -A1C [...] control. Assessment & Plan (06/07/2022 5:25 PM VIAL GAUGER): Managed by Dr. Bhatt. Needs optimal glycemic control. Assessment & Plan (03/23/2022 9:06 AM CDT): Managed by Dr. Bhatt. Needs optimal glycemic control Assessment & Plan (07/11/2020 5:49 PM VIAL GAUGER): Resolved following course of antiviral therapy. 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 Assessment & Plan (06/07/2022 5:25 PM VIAL GAUGER): Taking daily immunosuppressants which complicate glycemic management. 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 I encouraged her to see an user experience researcher again just to make sure that she does or does not need ongoing follow-up Assessment & Plan (08/06/2021 3:07 PM VIAL GAUGER): -Patient is legally blind -CGM allows for increase in safety as there is audile alarm for high and low blood sugars Resolved Problems Problem Noted Date Diagnosed Date Resolved Date Ketosis 06/03/2023 06/25/2023 Assessment & Plan (06/03/2023 5:41 AM VIAL GAUGER): Patient presenting with nausea and vomiting that [...] 06/25/2023 Assessment & Plan (06/03/2023 5:45 AM VIAL GAUGER): Presenting with 1 week history of UT [...] (03/28/2021): Added automatically from request for surgery [id number] Colon cancer screening 03/28/202104/19 Overview (03/28/2021): Added automatically from request for surgery [id number] Gastroparesis 02/23/2021 06/25/2023 Assessment & Plan (02/20/2023 [...] 02/23/2021 Assessment & Plan (08/08/2021 3:29 PM VIAL GAUGER): -BP today is 132/78 -Will continue same [...] or scopolamine patch. She does not meet [facility] criteria for use of palonosetron. -ordered [...] or scopolamine patch. She does not meet [facility] criteria for use of palonosetron. -ordered stool [...] or scopolamine patch. She does not meet [facility] criteria for use of palonosetron. -Check Cdiff, stool cx if continues to have diarrhea Acute cystitis without hematuria 12/22/2020 06/25/2023 Assessment & Plan (12/22/2020 2:21 PM CDT): Repeat UA, C & S in 2 weeks after completing Bactrim DS Work note for this week Acute otitis media 08/03/2020 Assessment & Plan (08/03/2020 3:05 PM VIAL GAUGER): Plan is to give Augmentin 875/125 b.i.d. times 10 days began Cortisporin. Will refer to ENT or urgently PICC as she is on immunosuppressive drugs. She will go to the emergency room if her situation worsens. Abdominal pain 04/17/2020 12/22/2020 Acute postoperative abdominal pain 04/05/2020 12/22/2020 Renal cell cancer, right 03/21/2020 Overview (03/21/2020): Non-functioning Diabetic foot ulcer 01/04/2020 06/25/20 Low back pain 11/15/2019 06/25/2023 Dehydration 11/15/2019 [...] Immunization Administration Dates Next Due COVID-19 mRNA (Goodie Goodie App) 0.3 m L (30 mcg) vaccine (12 [...] drink = 0.6 oz pur e alcohol) [facility] Utilities Answer Date Recorded In the past 12 months has [employer], gas, oil, or water company threatened to [...] How often do you attend chur or pentecostal services? Patient unable to answer 11/28/2023 Do you belong to any clubs o r organizations such as zoroastrianism groups, unions, fraternal or athletic groups, or [...] place to sleep or slept in a senior living (including now)? Patient unable to answer 11/28/2023 Personal Safety Answer Date Recorded Have you ever been in or are you currently in a harmful physical or emotional relationship or is someone making you feel afraid or unsafe? 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 Not on file Not on file Not [...] P M CDT Height 157.5 cm (5' 2) 12/04/2024 2:56 PM CDT Body Mass Index 28.2 12/04/2024 2:56 PM CDT Plan of Treatment Scheduled Procedures Name Priority Associated Diagnoses Date/Ti me TRANSPLANT KIDNEY ESRD (end stage renal disease) (HCC) Medical Devices Explanted Type Area Semiconductor Development Technician Device Identifier Shelf Expiration Date Model / Serial / Lot Circon-Surgit ek [id number]-J 6fr 20cm 100cm 1 Step Insert Push Catheter [place] Suture - [id number] Implanted:Qty : 1 on 03/09/2019 by Tommie Cortes MD at [facility] Explanted:Qty : 1 on 04/06/2019 by Ted Farrell NP Stent Right: Ureter Circon-Surgitek [id number] 02/14/2023 [id number] / / [id number] Description:Transplanted Ure ter Procedures Procedure Name Priority Date/Time Associated Diagnosis Comments SCAN - LABS 12/13/2024 4:56 PM CDT SCAN - LABS 12/13/2024 8:40 AM CDT SCAN - LABS 12/11/2024 2:53 PM CDT SCAN - LABS 12/11/2024 2:46 PM CDT POCT GLUCOSE [id number] Routine 12/04/2024 3: 03 PM CDT Type [...] CREATININE RATIO, URINE Routine 07/14/2024 8:26 AM VIAL GAUGER Type 1 diabetes mellitus with other specified complication (HCC) LIPID PANEL Routine 05/26/2024 DIABETIC EYE EXAM Routine 10/28/2023 2:2 7 PM CDT COLONOSCOPY 05/08/2022 12:35 PM CDT TSH Routine 10/25/2020 2:58 PM CDT Anxiety HEPATITIS C RNA, QUANTITATIVE, PCR STAT 03/02/2020 4:44 PM CDT from Last 3 Months or Most Recently Relevant to Health Maintenance Results * SCAN - LABS (12/13/2024 4:56 PM CDT) Ramon Sylvester MD Final Result * SCAN - LABS (12/13/2024 8:40 AM CDT) us Ramon L. Konzen MD Final Result * SCAN - LABS (12/11/2024 2:53 PM CDT) Result Elkin Sylvester MD Final Result * SCAN - LABS (12/11/2024 2:46 PM CDT) Result Elkin Sylvester MD Final Result * POCT glucose (12/04/2024 3:03 PM CDT) Pathologist [facility] Glucose Blood, POC 253 Normal Fasting 70 - 100, Random <200 mg/dL Blood 12/04/2024 3:03 PM CDT us Gavi Cervantes ASSEMBLER BONDING POINT OF CARE TEST ORDERA BLES Final Result * (ABNORMAL) POCT hemoglobin A1c (12/04/2024 3:03 PM CDT) Pathologist [facility] Hemoglobin A1C, POC 9.4(A) 4.0 - 5.6 % Blood 12/04/2024 3:03 PM CDT us Gavi Cervantes ASSEMBLER BONDING POINT OF CARE TEST ORDERA BLES Final Result * Magnesium (11/03/2024 8:13 AM CDT) Pathologist [facility] Magnesium 2.0 1.5 - 2.5 mg/dL [facility] Blood 11/03/2024 8:13 AM CDT 11/03/2024 8:14 AM CDT Narrative [facility] - 11/04/2024 3:56 AM CDT FASTING:YES FASTING: YES Result Elkin Sylvester MD LAB BLOOD ORDERABLES Final Re sult [facility] [address] [address] * (ABNORMAL) Tacrolimus, Highly Sensitive, LC/MS/MS (11/03/2024 8:12 AM CDT) Tacrolimus, Highly Sensitive, LC/MS/MS 4.2(L) mcg/L [facility] [...] BLOOD ORDERABL ES Final Result [facility] [address] [place] [address] * COPY(IES) SENT TO: (11/03/2024 8:12 AM CDT) Pathologist [facility] COPY(IES) SENT TO: [facility] Comment: [facility] KIDNEY - COPY TO [facility] [address] [place] [address] 11/03/2024 8:12 AM CDT 11/03/2024 8:12 AM CDT Narrative [facility] - 11/05/2024 11:20 AM CDT PAE FASTING:YES FASTING: YES Jose Rafael Ramos MD LAB BLOOD ORDERABL ES Final Result [facility] * (ABNORMAL) CBC with auto differential (11/03/2024 8:12 AM CDT) Pathologist [facility] WBC 8.1 3.8 - 10.8 Thousand/u L [...] BLOOD ORDERABL ES Final Result [facility] [address] [address] [address] * (ABNORMAL) Renal function panel (11/03/2024 8:12 [...] LAB BLOOD ORDERABL ES Final Result [facility] [address] [address] [address] * Albumin Creatinine Ratio, Urine (07/14/2024 8:26 AM VIAL GAUGER) Creatinine, ur 95 20 - 275 mg/dL [...] a diagnostic category. Urine 07/14/2024 8:26 AM VIAL GAUGER 07/14/2024 8:26 AM VIAL GAUGER Drew Godoy MD LAB URINE ORDERABLES Final Res ult [facility] [address] [place] [address] * (ABNORMAL) Lipid panel (05/26/2024) SCRIBED Cholesterol, [...] Female Attending MD: Cricket Santamaria M.D. Room: [facility] 8 Note Status: Finalized [...] The scope was passed under direct vision.The [id number] endoscope was introduced through the anus and advanced to the cecum, identified by appendiceal orifice and ileocecal valve. The colonoscopy was performed without difficulty. The patient tolerated the procedure well. The qualityof the bowel preparation was evaluated using the BBPS ([place] Bowel Preparation Scale) with scores of:Right Colon [...] following this procedure please call my office [phone]). After hours and eveningsplease call [phone] and speak to the GI fellow oncall. Please tell the fellow that Dr. Santamaria [...] On: 05/08/2022 12:35 PM Recognized by the [employer] for promoting quality in endoscopy Cricket Santamaria MD ENDOSCOPY PROCEDURES Fi nal Result * TSH (10/25/2020 2:58 PM CDT) Pathologist [facility] TSH 0.671 0.450 - 4.500 uIU/mL [facility] - 01 Blood specimen (specimen) 10/25/2020 2:58 PM CDT 10/25/2020 Narrative [facility] - 10/26/2020 8:15 AM CDT Performed at: - [address] [id number] Bulbs Farmworker: Jean-Claude Snider PhD, Phone: [phone] Ramon Sylvester MD LAB BLOOD ORDERABLES Final Re sult [facility] - 01 * Hepatitis C (HCV) RNA PCR, quantitative (03/02/2020 4:44 PM CDT) [facility] HCV RNA result Not Detected [facility] Comment: Interpretive data: The quantifiable range of this assay is 15 IU/mL to 100,000,000 IU/mL (1.18 log IU/mL to 8.00 log IU/mL). Testing was performed by the [employer]AR[employer] AmpliPrep/KARLY TaqMan HCV Test version 2.0 ([employer] Testing performed at [facility] Current Interpretive Data was last revised on 2015. Blood specimen (specimen) 03/02/2020 4:44 PM CDT 03/02/2020 5:00 PM CDT us Malcolm Mann MD LAB MICROBIOLOGY - GENERA L ORDERABLES Final Result [facility] [place] [address] from Last 3 Months or Most Recently Relevant to Health Maintenance Insurance [facility] MEDICARE ADVANTAGE [facility] MEDICARE ADVANTAGE [facility] MEDICARE ADVANTAGE Advance Directives For more information, please contact: [phone] * Full Code (Latest Code Status on [...] 11:12 AM 05/08/2022 5:48 PM Care Teams Retail Account Manager Relationship Specialty Start Date End Date Ramon Sylvester MD PCP - General 08/31/16 Burak Blue MD Consulting Physician Nephrology 04/21/18 Juana Jimenez, RN [place] Fishing Crew Member 03/09/19 Sylwia García MD Referring Physician Endocrinology Diabetes & Metabolism 03/21/20 Igor Yeager DO Consulting Physician Urology 04/27/20 Cristina Boyer, RN [address] [address] Secondary Kidney Coordinator Transplant 08/25/20 Cyn Fang NP [address] [address] Nurse Practitioner Nurse Practitioner 12/06/21
--- OUTSIDE RECORDS SUMMARY | 2024-12-23 11:30 | XMS_ITS | Clinical Summary ---
Author Organization [facility] Address [address] [place] [address] Care Team Providers Care Aircraft Structural Repair Mechanic Name Role Phone Ramon Sylvester MD Primary Care Provider [phone] Ramon Sylvester MD Unavailable [phone] Source Comments [facility],non-owned Affiliates and Associated Physician Practices is amultiple site organization consisting of ambulatory clinics and hospital sitesin [place] and [place]. This disclosure is being madepursuant to the Care Everywhere program and may not contain all information available regarding this patient. Last updated 18.[facility] Allergies Active Allergy Reactions Criticality Noted [...] MCG/ACT nasal sprayIndicatio ns:Nasal Signs and Symptoms [place] 2 Sprays into each nostril once daily [...] 10:09 AM CDT Height 157.5 cm (5' 2) 04/30/2019 10:09 AM CDT Body Mass Index [...] age to complete this topic Insurance MEDICARE [facility] Care Teams Aircraft Structural Repair Mechanic Relationship Specialty Start Date End Date Ramon Sylvester MD PCP - General Internal Medicine 10/19/16 Ramon Sylvester MD Internal Medicine 10/19/16
--- OUTSIDE RECORDS SUMMARY | 2024-12-23 11:30 | XMS_ITS | CONTINUITY OF CARE DOCUMENT ---
Author Name ricci wynne Address Unknown Organization [facility] Address [address] [facility] [address] [place] [address] Phone [phone] Care Team Providers Care Pencil Sorter Name Role Phone Luis F Bansal MD Unavailable Luis F Bansal MD Unavailable [phone] INSURANCE PROVIDERS Payer name Policy type / Coverage type [place] red alliance party ID [employer] FAMILY [facility] Medicaid [id number] [facility] CHRONIC COMPLETE ASSURE (PPO C-SNP) Medicare [id number]
--- OUTSIDE RECORDS SUMMARY | 2024-12-23 11:30 | XMS_ITS ---
Author Organization [facility] Address [address] [place] [address] Care Team Providers Care Car Bracer Name Role Phone Ramon Sylvester MD Primary Care Provider [phone] Burak Blue MD Unavailable [phone] Juana Jimenez RN Unavailable Sylwia García MD Unavailable Igor Yeager DO Unavailable Cristina Boyer RN Unavailable Cyn Fang NP Unavailable Active Problems Patient Care Coordination No te Formatting of this note migh t be different from the original. Lab: [facility]- [phone] Standing Orders q-monthly FK, q3-HgbA1C. Exp. 06/16/25 Home Health: [facility] Home Care Local Pharmacy:[facility] Specialty Pharmacy: [facility] Problem Noted Date Diagnosed Date Pancreatic insufficiency 07/11/2024 Localized edema 01/22/2024 Assessment & Plan (01/22/2024 4:11 PM CDT): Continue furosemide Abnormal urinalysis/ UTI 11/26/2023 Assessment & Plan (11/29/2023 12:12 AM CDT): Reports experiencing burning sensation during urination and pain during urination for more than 2-3 months and has had multiple visit at [facility] in [place] with multiple abnormal urinalyses and recent cultures [...] home) Assessment & Plan (06/25/2023 3:24 PM RECYCLING ASSISTANT): Continue Ambien Assessment & Plan (02/24/2023 2:03 [...] hypoglycemia. Assessment & Plan (06/07/2022 5:23 PM RECYCLING ASSISTANT): Now improved, but still need to minimize [...] hypoglycemia Assessment & Plan (08/08/2021 3:28 PM RECYCLING ASSISTANT): -Affects post meal glucose readings -Closely monitor [...] 3:25 PM CDT): S/p right nephrectomy of [place] right kidney. POD1 N/V and Abd pain. [...] glucoses. Assessment & Plan (06/07/2022 5:24 PM RECYCLING ASSISTANT): This affects her ability to see a [...] Stable. Assessment & Plan (06/03/2023 5:34 AM RECYCLING ASSISTANT): Previous history of smoking. - Continue home inhalers and singulair. Essential hypertension 11/15/2019 Assessment & Plan (11/17/2024 3:59 PM CDT): BP at target Assessment & Plan (06/03/2023 5:41 AM RECYCLING ASSISTANT): Hold amlodipine for soft blood pressures. Assessment [...] 11/15/2019 Assessment & Plan (06/03/2023 5:43 AM RECYCLING ASSISTANT): Continue home statin. Assessment & Plan (02/24/2023 2:01 AM CDT): Cont home atorva 20mg. Assessment & Plan (11/05/2022 9:21 AM CDT): On atorvastatin 20mg. Optimize glycemic control. 10/2022- TG 173, HDL 66, LDL 66 Assessment & Plan (06/07/2022 5:29 PM RECYCLING ASSISTANT): Continue statin therapy (atorvastatin 20mg) and optimize [...] stable. 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 Assessment & Plan (06/07/2022 5:38 PM RECYCLING ASSISTANT): Hemoglobin A1c increased to 8.5% on 05/22/2022. [...] insulin. Assessment & Plan (08/08/2021 3:28 PM RECYCLING ASSISTANT): -Currently taking MDI and using Lynda -A1C [...] control. Assessment & Plan (06/07/2022 5:25 PM RECYCLING ASSISTANT): Managed by Dr. Bhatt. Needs optimal glycemic control. Assessment & Plan (03/23/2022 9:06 AM CDT): Managed by Dr. Bhatt. Needs optimal glycemic control Assessment & Plan (07/11/2020 5:49 PM RECYCLING ASSISTANT): Resolved following course of antiviral therapy. 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 Assessment & Plan (06/07/2022 5:25 PM RECYCLING ASSISTANT): Taking daily immunosuppressants which complicate glycemic management. Assessment & Plan (08/06/2021 3:09 PM RECYCLING ASSISTANT): -intermediate frame tender use of immunosuppressants and steroids complicates diabetes [...] has. I encouraged her to see an pattern stamper again just to make sure that she does or does not need ongoing follow-up Assessment & Plan (08/06/2021 3:07 PM RECYCLING ASSISTANT): -Patient is legally blind -CGM allows for [...] 06/25/2023 Assessment & Plan (06/03/2023 5:41 AM RECYCLING ASSISTANT): Patient presenting with nausea and vomiting that [...] 06/25/2023 Assessment & Plan (06/03/2023 5:45 AM RECYCLING ASSISTANT): Presenting with 1 week history of UT [...] (03/28/2021): Added automatically from request for surgery [id number] Colon cancer screening 03/28/202104/19 Overview (03/28/2021): Added automatically from request for surgery [id number] Gastroparesis 02/23/2021 06/25/2023 Assessment & Plan (02/20/2023 [...] 02/23/2021 Assessment & Plan (08/08/2021 3:29 PM RECYCLING ASSISTANT): -BP today is 132/78 -Will continue same [...] or scopolamine patch. She does not meet [facility] criteria for use of palonosetron. -Check Cdiff, stool cx if continues to have diarrhea Acute cystitis without hematuria 12/22/2020 06/25/2023 Assessment & Plan (12/22/2020 2:21 PM CDT): Repeat UA, C & S in 2 weeks after completing Bactrim DS Work note for this week Acute otitis media 08/03/2020 Assessment & Plan (08/03/2020 3:05 PM RECYCLING ASSISTANT): Plan is to give Augmentin 875/125 b.i.d. [...]
--- OUTSIDE RECORDS SUMMARY | 2024-12-23 11:30 | XMS_ITS | Clinical Summary ---
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 Lab: [facility]- [phone] Standing Orders q-monthly FK, q3-HgbA1C. Exp. 06/16/25 Home Health: [facility] Home Care Local Pharmacy:[facility] Specialty Pharmacy: [facility] Problem Noted Date Diagnosed Date Pancreatic insufficiency 07/11/2024 Localized edema 01/22/2024 Assessment & Plan (01/22/2024 4:11 PM CDT): Continue furosemide Abnormal urinalysis/ UTI 11/26/2023 Assessment & Plan (11/29/2023 12:12 AM CDT): Reports experiencing burning sensation during urination and pain during urination for more than 2-3 months and has had multiple visit at [place] [facility] in [place] with multiple abnormal urinalyses [...] home) Assessment & Plan (06/25/2023 3:24 PM TIMBER HARVESTER OPERATOR): Continue Ambien Assessment & Plan (02/24/2023 2:03 AM CDT): Cont home katieflip PRN, reduce 10mg -> 5mg Liver lesion, right lobe 10/06/2022 assisted current 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 Change Lantus from hs to AM to decrease overnight lows. Assessment & Plan (11/05/2022 9:19 AM CDT): Need to minimize risk of hypoglycemia. Assessment & Plan (06/07/2022 5:23 PM TIMBER HARVESTER OPERATOR): Now improved, but still need to [...] hypoglycemia Assessment & Plan (08/08/2021 3:28 PM TIMBER HARVESTER OPERATOR): -Affects post meal glucose readings -Closely [...] glucoses. Assessment & Plan (06/07/2022 5:24 PM TIMBER HARVESTER OPERATOR): This affects her ability to see [...] Stable. Assessment & Plan (06/03/2023 5:34 AM TIMBER HARVESTER OPERATOR): Previous history of smoking. - Continue home inhalers and singulair. Essential hypertension 11/15/2019 Assessment & Plan (11/17/2024 3:59 PM CDT): BP at target Assessment & Plan (06/03/2023 5:41 AM TIMBER HARVESTER OPERATOR): Hold amlodipine for soft blood pressures. [...] 11/15/2019 Assessment & Plan (06/03/2023 5:43 AM TIMBER HARVESTER OPERATOR): Continue home statin. Assessment & Plan (02/24/2023 2:01 AM CDT): Cont home atorva 20mg. Assessment & Plan (11/05/2022 9:21 AM CDT): On atorvastatin 20mg. Optimize glycemic control. 10/2022- TG 173, HDL 66, LDL 66 Assessment & Plan (06/07/2022 5:29 PM TIMBER HARVESTER OPERATOR): Continue statin therapy (atorvastatin 20mg) and [...] stable. 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 Assessment & Plan (06/07/2022 5:38 PM TIMBER HARVESTER OPERATOR): Hemoglobin A1c increased to 8.5% on [...] insulin. Assessment & Plan (08/08/2021 3:28 PM TIMBER HARVESTER OPERATOR): -Currently taking MDI and using Lynda [...] control. Assessment & Plan (06/07/2022 5:25 PM TIMBER HARVESTER OPERATOR): Managed by Dr. Bhatt. Needs optimal glycemic control. Assessment & Plan (03/23/2022 9:06 AM CDT): Managed by Dr. Bhatt. Needs optimal glycemic control Assessment & Plan (07/11/2020 5:49 PM TIMBER HARVESTER OPERATOR): Resolved following course of antiviral therapy. 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 Assessment & Plan (06/07/2022 5:25 PM TIMBER HARVESTER OPERATOR): Taking daily immunosuppressants which complicate glycemic management. Assessment & Plan (08/06/2021 3:09 PM TIMBER HARVESTER OPERATOR): -joint terminal attack controller use of immunosuppressants and steroids complicates diabetes [...] has. I encouraged her to see an cornice maker again just to make sure that she does or does not need ongoing follow-up Assessment & Plan (08/06/2021 3:07 PM TIMBER HARVESTER OPERATOR): -Patient is legally blind -CGM allows for increase in safety as there is audile alarm for high and low blood sugars Resolved Problems Problem Noted Date Diagnosed Date Resolved Date Ketosis 06/03/2023 06/25/2023 Assessment & Plan (06/03/2023 5:41 AM TIMBER HARVESTER OPERATOR): Patient presenting with nausea and vomiting [...] 06/25/2023 Assessment & Plan (06/03/2023 5:45 AM TIMBER HARVESTER OPERATOR): Presenting with 1 week history of [...] (03/28/2021): Added automatically from request for surgery [id number] Colon cancer screening 03/28/202104/19 Overview (03/28/2021): Added automatically from request for surgery [id number] Gastroparesis 02/23/2021 06/25/2023 Assessment & Plan (02/20/2023 [...] 02/23/2021 Assessment & Plan (08/08/2021 3:29 PM TIMBER HARVESTER OPERATOR): -BP today is 132/78 -Will continue [...] 08/03/2020 Assessment & Plan (08/03/2020 3:05 PM TIMBER HARVESTER OPERATOR): Plan is to give Augmentin 875/125 [...] Type Department Care Team Description 12/17/2024 Telephone [facility] [address] [place] [address] Ramon Sylvester MD Home Iv therapy request from [facility] 12/13/2024 Orders Only [facility] [address] [place] [address] Ramon Sylvester MD 12/04/2024 3:00 PM CDT Office Visit [facility] Endocrinology Metabolism and Lipid 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 [place] [address] [place] [address] Jose Rafael Ramos MD 09/25/2024 Orders Only [facility] Endocrinology Metabolism and Lipid [address] [place] [address] [place] [address] Drew Godoy MD 09/25/2024 Telephone [facility] Endocrinology Metabolism and Lipid [address] [place] [address] [place] [address] Breonna Patricia Estelle, medical laboratory technicians Freesetyle lynda 3 plus refills from Last 3 Months Immunizations Immunization Administration Dates Next Due COVID-19 mRNA (miLibris) 0.3 m L (30 mcg) vaccine (12 [...] (HCC) Anemia Hard to intubate per 02/2019 kidn ey transplant notes Lee positive DM (diabetes [...] drink = 0.6 oz pur e alcohol) [facility] Utilities Answer Date Recorded In the [...] often do you attend chur ch or confucianist services? Patient unable to answer 11/28/2023 Do you belong to any clubs o r organizations such as roman catholic groups, unions, fraternal or athletic groups, or [...] place to sleep or slept in a snf (including now)? Patient unable to answer 11/28/2023 Personal Safety Answer Date Recorded Have you ever been in or are you currently in a harmful physical or emotional relationship or is someone making you feel afraid or unsafe? 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 Not on file Not on file Not [...] history exists Medical Devices Explanted Type Area Skate Boarder Device Identifier Shelf Expiration Date Model / Serial / Lot [employer]con-Surgit ek [id number] 6fr 20cm 100cm 1 Step Insert Push Catheter [employer] [employer] - [id number] Implanted:Qty : 1 on 03/09/2019 by Tommie Cortes MD at [facility] Explanted:Qty : 1 on 04/06/2019 by Ted Farrell NP Stent Right: Ureter [employer]con-Surgitek [id number] 02/14/2023 [id number] / / [id number] Description:Transplanted Ure ter Procedures Procedure Name Priority Date/Time Associated Diagnosis Comments SCAN - LABS 12/13/2024 4:56 PM CDT SCAN - LABS 12/13/2024 8:40 AM CDT SCAN - LABS 12/11/2024 2:53 PM CDT SCAN - LABS 12/11/2024 2:46 PM CDT POCT GLUCOSE [id number] Routine 12/04/2024 3: 03 PM CDT Type [...] CREATININE RATIO, URINE Routine 07/14/2024 8:26 AM TIMBER HARVESTER OPERATOR Type 1 diabetes mellitus with other [...] SCAN - LABS (12/13/2024 4:56 PM CDT) us Ramon Sylvester MD Final Result * SCAN - LABS (12/13/2024 8:40 AM CDT) us Ramon Sylvester MD Final Result * SCAN - LABS (12/11/2024 2:53 PM CDT) us Ramon Sylvester MD Final Result * SCAN - LABS (12/11/2024 2:46 PM CDT) us Ramon Sylvester MD Final Result * POCT glucose [...] MD LAB BLOOD ORDERABLES Final Re sult Performing Organization Address [facility] Co de Phone Number [facility] [address] [place] [address] * (ABNORMAL) Tacrolimus, Highly Sensitive, LC/MS/MS (11/03/2024 8:12 AM CDT) Tacrolimus, Highly Sensitive, LC/MS/MS 4.2(L) mcg/L [facility] Comment: No definitive therapeutic or [...] ORDERABL ES Final Result Performing Organization Address [facility] Co de Phone Number [facility] [address] [place] [address] * COPY(IES) SENT TO: (11/03/2024 8:12 AM CDT) Pathologist [facility] COPY(IES) SENT TO: [facility] Comment: [facility] KIDNEY - COPY TO [facility] [address] [place] [address] 11/03/2024 8:12 AM CDT 11/03/2024 8:12 AM CDT Narrative [facility] - 11/05/2024 11:20 AM CDT PAE FASTING:YES FASTING: YES Jose Rafael Ramos MD LAB BLOOD ORDERABL ES Final Result [facility] * (ABNORMAL) CBC with auto differential (11/03/2024 8:12 AM CDT) [facility] WBC 8.1 3.8 - 10.8 Thousand/u [...] BLOOD ORDERABL ES Final Result [facility] [address] [address] [address] * (ABNORMAL) Renal function panel (11/03/2024 8:12 [...] BLOOD ORDERABL ES Final Result [facility] [address] [facility] [place] [address] * Albumin Creatinine Ratio, Urine (07/14/2024 8:26 AM TIMBER HARVESTER OPERATOR) Creatinine, ur 95 20 - 275 [...] a diagnostic category. Urine 07/14/2024 8:26 AM TIMBER HARVESTER OPERATOR 07/14/2024 8:26 AM TIMBER HARVESTER OPERATOR Drew Godoy MD LAB URINE ORDERABLES Final Res ult Performing Organization Address [facility] Co de Phone Number [facility] [address] [facility] [place] [address] * (ABNORMAL) Lipid panel (05/26/2024) SCRIBED Cholesterol, Total 164 140 - 199 TXP NO LA B FOUND SCRIBED HDL 59 40 TXP NO L AB FOUND SCRIBED LDL 67 0 - 130 TXP NO L AB FOUND SCRIBED Triglycerides 192(A) 0 - 150 TXP NO LAB FOUND Blood 05/26/2024 Historical Provider LAB BLOOD ORDERABLES Delmi l Result Performing Organization Address [facility] Co de Phone Number TXP NO LAB [...] Female Attending MD: Cricket Santamaria M.D. Room: [facility] ENDOSCOPY ROOM 8 Note Status: Finalized Procedure: Colonoscopy Indications: Screening for colorectal malignant neoplasm. Inadequate preparation for screening colonoscopy yesterday. Referring MD: Ramno Sylvester M.D. Providers: Cricket Santamaria M.D. Medicines: [...] The scope was passed under direct vision.The [id number] endoscope was introduced through the anus and advanced to the cecum, identified by appendiceal orifice and ileocecal valve. The colonoscopy was performed without difficulty. The patient tolerated the procedure well. The qualityof the bowel preparation was evaluated using the BBPS ([place] Bowel Preparation Scale) with scores of:Right Colon [...] following this procedure please call my office [phone]). After hours and eveningsplease call [phone] and speak to the GI fellow augustin. [...] On: 05/08/2022 12:35 PM Recognized by the [employer] for promoting quality in endoscopy us Cricket Santamaria MD ENDOSCOPY PROCEDURES Fi nal Result * TSH (10/25/2020 2:58 PM CDT) TSH 0.671 0.450 - 4.500 uIU/mL [facility] - 01 Blood specimen (specimen) 10/25/2020 2:58 PM CDT 10/25/2020 Narrative [facility] - 10/26/2020 8:15 AM CDT Performed at: 01 - [facility] [id number] Auxiliary Power Equipment Operator: Jean-Claude Snider PhD, Phone: [phone] us Ramon Sylvester MD LAB BLOOD ORDERABLES Final Re sult [facility] - 01 * Hepatitis C (HCV) RNA PCR, quantitative (03/02/2020 4:44 PM CDT) [facility] HCV RNA result Not Detected [facility] Comment: Interpretive data: The quantifiable range of this assay is 15 IU/mL to 100,000,000 IU/mL (1.18 log IU/mL to 8.00 log IU/mL). Testing was performed by the [employer] AmpliPrep/KARLY TaqMan HCV Test version 2.0 ([employer] Testing performed at [facility] Current Interpretive Data was last revised on 2015. Blood specimen (specimen) 03/02/2020 4:44 PM CDT 03/02/2020 5:00 PM CDT Malcolm Mann MD LAB MICROBIOLOGY - GENERA L ORDERABLES Final Result [facility] [place] [address] from Last 3 Months or Most Recently Relevant to Health Maintenance Insurance [facility] MEDICARE ADVANTAGE [facility] MEDICARE IDPA [facility] MEDICARE ADVANTAGE MEDICARE ADVANTAGE Advance Directives For more information, please contact: [phone] * Full Code (Latest Code Status on [...] 11:12 AM 05/08/2022 5:48 PM Care Teams Continuous Improvement Lead Relationship Specialty Start Date End Date Ramon Sylvester MD PCP - General 08/31/16 Burak Blue MD Consulting Physician Nephrology 04/21/18 Juana Jimenez RN Skein Spooler 03/09/19 Sylwia García MD Referring Physician Endocrinology Diabetes & Metabolism 03/21/20 Igor Yeager DO Consulting Physician Urology 04/27/20 Cristina Boyer RN [address] [address] Secondary Kidney Coordinator Transplant 08/25/20 Cyn Fang NP [address] [id number] Nurse Practitioner Nurse Practitioner 12/06/21
--- OUTSIDE RECORDS SUMMARY | 2024-12-23 11:30 | XMS_ITS | Data Portability ---
Author Organization [place] [employer] [facility], Main Office Address [address] [place] [address] Care Team Providers Care Tourist Escort Name Role Phone EMY CHANEY Primary Care Provider [phone] Assessment Encounter Date Assessment Date Assessment LastModified by Organization Details LastModified Time 01/28/2024 01/28/2024 This note is dictated and transcribed by [employer]. Cfo Controller variances may occur. Despite proofreading, typographical errors may occur. Occasional wrong-word or 'hgtjp-f-woaw' substitutions may have occurred due to the inherent limitations of voice recording. Read the chart carefully and recognize, using context, where substitutions have occurred. Not available 01/28/2024 16:22:17 02/04/2024 02/04/2024 This note is dictated and transcribed by [employer]. Cfo Controller variances may occur. Despite proofreading, typographical errors may occur. Occasional wrong-word or 'zkwmp-v-cbyd' substitutions may have occurred due to the inherent limitations of voice recording. Read the chart carefully and recognize, using context, where substitutions have occurred. Not available 02/04/2024 10:05:41 05/05/2024 05/05/2024 This note is dictated and transcribed by [employer]. Cfo Controller variances may occur. Despite proofreading, typographical errors may occur. Occasional wrong-word or 'ktvvn-z-esnv' substitutions may have occurred due to the inherent limitations of voice recording. Read the chart carefully and recognize, using context, where substitutions have occurred. Not available 05/05/2024 15:16:03 09/23/2024 09/23/2024 This note is dictated and transcribed by [employer]. Cfo Controller variances may occur. Despite proofreading, typographical errors may occur. Occasional wrong-word or 'aaufn-w-pbcc' substitutions may have occurred due to the [...] e 2 % topical cream 2024 025 [facility] #[id number], [address], [place], [address], 5 15:26:59 ketoconazol e 2 % topical cream [address] [id number], [address], [place], [address], 4 15:16:26 ketoconazol e 2 % topical cream [address] [id number], [address], [place], [address], 4 10:06:13 Patient TargetsNo targets recorded. Patient InstructionsNo instructions recorded. Reason for Referral None Reported. Results Created Date Observation Date Name Description Value Unit Range Abnormal Flag Note LastModifiedBy Organization Detail LastModifiedTime 10/21/1910/21/2023 US, duple x, arter ial, lower extre mity, compl ete No observ ation record ed. [email or web address] [facility] ([facility]) [address] [place], [address], 10/21/2023 13:31:53 10/21/19 24 10/21/2023 (BIANCA) ankle brach ial index * No observ ation record ed. [email or web address] [facility] ([facility]) [address] [place], [address], 10/21/2023 13:31:53 Result Notes None recorded. Problems Name Problem SNOMED Code Status Onset Date Resolution Date Notes Provider Name and Address Organization Details Recorded Time Metatarsalgia 54448278 Active 2018 Not Available [facility] 3 17:12:38 Tobacco user 014456703 Active Not Available [facility] 3 17:12:38 Disorder of shoulder 472533344 Active Not Available [facility] 3 17:12:38 Hypercholeste rolemia 63816849 Active 2018 Not Available [facility] 3 17:12:38 Chronic obstructive pulmonary disease 62555941 Active Not Available [facility] 3 17:12:38 Bipolar disorder 52417743 Active Not Available [facility] 3 17:12:38 Backache 447402937 Active Not Available [facility] 3 17:12:38 Heartburn 25051723 Active 2018 Not Available [facility] 3 17:12:38 Insomnia 060131797 Active Not Available [facility] 3 17:12:38 Raynaud's disease 074826487 Active Not Available [facility] 3 17:12:38 Asthma 876591536 Active 2018 Not Available [facility] 3 17:12:38 Fibromyalgia 507014930 Active 2018 Not Available [facility] 3 17:12:38 Blindness of one eye Active Not Available [facility] 3 17:12:38 Gastroesophag eal reflux disease 449838151 Active Not Available [facility] 3 17:12:39 Edema 901220779 Active Not Available [facility] 3 17:12:39 Low back pain 720247479 Active Not Available [facility] 3 17:12:39 Enthesopathy of hip region 11065105 Active Not Available [facility] 3 17:12:39 Bronchitis 00706346 Active 2018 Not Available [facility] 3 17:12:39 Depressive disorder 78839271 Active 2018 Not Available [facility] 3 17:12:39 Diabetic foot ulcer 218966190 Active 2019 Not Available [facility] 3 17:12:39 Diabetic foot ulcer 168749659 Active 2019 Not Available [facility] 3 17:12:39 Arthritis 8055624 Active 2018 Not Available [facility] 3 17:12:39 Osteoarthriti s 626135526 Active Not Available [facility] 3 17:12:39 Sleep disorder 85369687 Active 2018 Not Available [facility] 3 17:12:39 Calcium deposits in tendon 034441621 Active Not Available [facility] 3 17:12:40 Seasonal allergy 533128739 Active 2018 Not Available [facility] 3 17:12:40 Pain of shoulder region 33245365 Active Not Available [facility] 3 17:12:40 Anxiety 29989923 Active 2018 Not Available [facility] 3 17:12:40 Hyperlipidemi a 57425980 Active Not Available [facility] 3 17:12:40 Essential hypertension 46544249 Active Not Available [facility] 3 17:12:40 Noncompliance with treatment 9676666 Active 2019 Not Available [facility] 3 17:12:40 Diabetes mellitus 26804290 Active Not Available [facility] 3 17:12:40 Smoker 29921820 Active Not Available [facility] 3 17:12:40 Hyperglycemia 25553239 Active Not Available [facility] 3 17:12:40 Neck pain 61234324 Active Not Available [facility] 3 17:12:40 Gout 64518865 Active 2018 Not Available [facility] 3 17:12:41 Fissure in skin 83619084 Active 2018 Not Available [facility] 3 17:12:41 Environmental allergy 267706256 Active 2023 RAJNI Silva [facility] 4 09:31:24 Anemia 550303654 Active 2023 Zoe Campbell null, [place] [facility] [facility] 4 09:31:39 Dialysis care Active 2023 Zoe [place] null, [place] [facility] 4 09:32:07 Ear problem 964059950 Active 2023 Zoe Campbell null, [place] [facility] 4 09:32:17 Disorder of eye 812510545 Active 2023 Zoe Campbell null, [place] [facility] 4 09:32:26 Headache 71278366 Active 2023 Zoe [place] null, [place] [facility] 4 09:32:53 Disease of liver 171765434 Active 2023 Zoe Campbell null, [place] [facility] 4 09:33:01 Kidney disease 91240111 Active 2023 Zoe Campbell null, [place] [facility] 4 09:33:25 Migraine 00087353 Active 2023 Zoe Campbell null, [place] [facility] 4 09:33:33 Peripheral vascular disease 316553491 Active 2023 Michael Mccrary DPM [address], [address], [place], [address] , [facility] 4 09:45:59 Cigarette smoker 06867001 Active 2023 Michael Mccrary DPM [address], [address], [place], [address] , [facility] 4 09:46:05 Onychomycosis of toenails 362936026 Active 2023 Michael Mccrary DPM [address], [address], [place], [address] , [facility] 4 09:47:01 Dystrophia unguium 26394844 Active 2023 Michael Mccrary DPM [address], [address], [place], [address] , [employer] [facility] 4 09:47:10 Diabetic peripheral neuropathy 977768071 Active 2023 Michael Mccrary DPM [address], [address], [place], [address] , [email or web address] 4 09:47:27 Notes:back/neck problems, di alysis, ear [...] Mccrary DPM [address], [address], [place], [address], [employer] 09/23/2024 15:26:25 01/28/20 24 Toenail avulsion completed Michael Mccrary DPM [address], [address], [place], [address], [employer] 01/28/2024 16:22:30 10/17/19 24 Nail Debridement completed Michael Mccrary DPM [address], [address], [place], [address], [employer] [facility] 10/17/2023 09:56:54 Appendectomy completed Zoe Campbell [employer] [facility] 10/17/2023 09:35:32 Hysterectomy completed Zoe Campbell [employer] [facility] 10/17/2023 09:35:39 transplant of kidney completed Zoe Dodd [employer] [facility] [employer] 10/17/2023 09:35:51 total nephrectomy completed Zoe Campbell [place] [employer] [facility] [employer] 10/17/2023 09:36:56 Imaging Results None recorded. Procedure Notes None recorded. Medical Equipment None Reported. Allergies Allergen ID Allergen Name Allergen Category Reaction Reaction Severity Criticality Documentation Date Start Date Code Code System Note Provider Name and Address Organization Details Recorded Time 63576 tetracycl ine medicatio n vomiting Not available Not available 09/26/2022 22909 RxNorm Not Available [facility] 3 17:13:27 58235 morphine medicatio n Not available Not available Not available 09/26/2022 7052 RxNorm sever e itchi ng Not Available [facility] 3 17:13:27 49934 metformin medicatio n diarrhea Not available Not available 09/26/2022 6809 RxNorm Not Available [facility] 3 17:13:28 79809 cyclobenz aprine hydrochlo ride medicatio n hives Not available Not available 09/26/2022 72284 RxNorm Not Available [facility] 3 17:13:28 89656 codeine medicatio n Not available Not available Not available 09/26/2022 2670 RxNorm sever e itchi ng Not Available [facility] 3 17:13:28 Medications Name Sig [...] process of trying to get in with Mahay Not Available Not Available Not Available furosemid [...] gram solution for injection ADMINIST ER PER RN DIRECTIO N [...] e Mini Pen Needle 31 gauge x 3/16 USE TO INJECT INSULIN THREE TO FIVE [...] Not Available No t Available Fluzone Quad 3317-5368 60 mcg (15 mcg x 4)/0.5 mL IM suspensio n active Not Available Not Available Not Available Envarsus XR 1 mg tablet,ex tended release TAKE 3 TABLETS BY MOUTH MIME ARTIST BEFORE BREAKFAS T DO NOT TAKE ON FRI 11/28, THEN RESUME SAT 5/ active Not Available Not Available No t [...] Not Available Not Available Not Available [employer] Ylnda 2 Sensor kit TO CHANGE SENSOR EVERY 14 DAYS. active Not Available Not Available No t Available [employer] Lynda 3 [place] active Not Available Not Available Not Available Zenpep 60,000-18 9,600-252 ,600 unit capsule,d elayed release TAKE 1 CAPSULE BY MOUTH BEFORE MEALS AND/OR SNACKS active Not Available Not Available No t Available [employer] Lynda 3 Plus Sensor device USE 1 SENSOR EVERY 15 DAYS active Not Available Not Available No t Available Vitals Date Recorded Body height Body temperature Respiratory rate Oxygen saturation Oxygen saturation in Arterial blood by Pulse oximetry Heart rate Body mass index (BMI) Body weight Systolic blood pressure Diastolic blood pressure Provider Name and Address Organization Details Last Updated DateTime 157.48 cm 97.8 [degF] 16 /min 97 % 97 % 78 /min 26.5 kg/m2 53661.8 9 g 117 mm[Hg] 63 mm[Hg] Debbie Pineda [employer] 15:06:38 Date Recorded Body height Provider Name an d Address Organization Details Last Updated DateTime 11/14/2023 157.48 cm Johanna Cruz [employer] [facility] [employer] 11/14/2023 17:25:13 Date Recorded Body height Heart rate Systolic blood pressure Diastolic blood pressure Provider Name and Address Organization Details Last Updated DateTime 01/28/2024 157.48 cm 100 /min 167 mm[Hg] 100 mm[Hg] Madelin Campbell [employer] 01/28/2024 16:02:53 Date Recorded Body height Heart rate Systolic blood pressure Diastolic blood pressure Provider Name and Address Organization Details Last Updated DateTime 02/04/2024 157.48 cm 91 /min 138 mm[Hg] 86 mm[Hg] Belia Campbell [employer] 02/04/2024 09:38:23 Date Recorded Body height Body mass index (BMI) Body weight Heart rate Respiratory rate Oxygen saturation Oxygen saturation in Arterial blood by Pulse oximetry Systolic blood pressure Diastolic blood pressure Provider Name and Address Organization Details Last Updated DateTime 4 157.48 cm 26.5 kg/m2 01040.8 9 g 75 /min 14 /min 99 % 99 % 104 mm[Hg] 66 mm[Hg] Johanna Cruz [facility] [employer] 4 14:49:45 Social History Question Answer Notes LastModified by [employer] Details LastModified Time Tobacco Smoking Status Former Smoker Zoe Campbell andrew [facility] [employer] 10/17/2023 09:35:12 When Did You Quit Smoking? 6-10yearssin celastcigare tte Information not available 10/17/2023 How Many Years Have You Smoked Tobacco? 12 Information not available 10/17/2023 Sex: Unknown Functional Status Question Answer Note LastModified by [employer] Details LastModified Time What is your level of alcohol consumption? None Information not available 10/17/2023 What is your occupation? [employer] employee [id number] Information not available 09/26/2022 Mental Status [...] conjugate PCV 13 5 completed Not Available [facility] 09/26/2022 17:13:26 Influenza, high-dose, trivalent, PF 5 completed Not Available [facility] 09/26/2022 17:13:26 Past Encounters Encounter ID Performer Location Encounter Start Date Encounter Closed Date Diagnosis/Indication Diagnosis SNOMED-CT Code Diagnosis ICD10 Code Diagnosis Note [id number] Michael Mccrary DPM [facility] [place] [place] [facility] [place] [address] [place] [id number] 10/17/2023 09:25:21 10/17/2023 10:14:37 Peripheral vascular disease 366849542 I73.9 obtain noninvasiv e vascular studies for possible procedure Cigarette smoker 4719617 7 F17.210 Recommend discontinu e smoking, patient states she is tryingrevi ewed side effects of smoking Onychomyco sis of toenails 829092154 B35.1 both great toenails Dystrophia unguium 00664 009 L60.3 nails debrided without incident 1 through 10 Diabetic p eripheral neuropathy 099528860 E11.40 Patient educated on neuropathy , diabetes, diabetic diet, and daily foot exams. Patient is to check feet daily for new wounds, blisters, redness to prevent infection and ulceration s to the feet. Patient will return to clinic in 3 months for diabetic foot workup. [id number] SIMONE [facility]re[facility] [place] [address] [place] [id number] 11/14/2023 17:21:47 11/18/2023 10:15:04 Diabetes mellitus 00775063 E11.9 continue diabetic control per PCP recommenda tions Cigarette smoker 5554445 7 F17.210 Recommend discontinu e smoking, patient states she is tryingrevi ewed side effects of smoking Peripheral vascular disease 784219270 I73.9 vascular testing reviewed with the patientrec ommend daily exercisere peat studies in 1 yearrecomm end discontinu e smoking Onychomyco sis of toenails 063374098 B35.1 both great toenails- planned for total nail avulsionsc hedule procedure [id number] Michael Mccrary DPM [facility] [place] [place] [facility] [place] [address] [id number] 01/28/2024 15:58:49 01/31/2024 09:55:54 Onychomycosis of toenails 988863365 B35.1 right great toenailtot al nail avulsion performed todayWound care instructio ns givenMonit or for signs of infection at present seek medical attention immediatel yDressing instructio ns reviewed with the patientFol low-up 1 week [id number] Michael Mccrary DPM [facility] [place] [place] [facility] [place] [address] [id number] 02/04/2024 09:25:49 02/04/2024 11:41:31 Onychomycosis of toenails 627130433 B35.1 right great toenailtot al nail avulsion healingcon tinue daily wound care until healedWoun d care instructio ns givenMonit or for signs of infection at present seek medical attention immediatel yDressing instructio sabas reviewed with the patientFol low-up 3 months [id number] Michael Mccrary DPM [facility] [place] [address] [address] 05/05/2024 14:32:35 05/06/2024 12:50:19 Onychomycosis of toenails 756112263 B35.1 right great toenailtot al nail avulsion healedcont inue ketoconazo le dailynail debrided Follow-up 2-3months [id number] Michael Mccrary DPM [facility] [address] [place] [address] 09/23/2024 14:45:22 09/23/2024 15:53:44 Onychomycosis of toenails 321001889 B35.1 right great toenail- Resolvedto enail fungus left great toenailcon tinue ketoconazo le dailynail debridedpl anned total nail avulsion of left great toenail when patient is availableF ollow-up 2-3months Health Concerns Section Related Observation LastModified by Organization Michelle canales LastModified Time None Recorded Concern Status LastModified by Organization Details LastModified Time None Recorded Advance Directives Directive None Recorded Payers Encounter Date Sequence Insurance Name Policy Number Policy Duncan Covered Member ID Duncan Member ID Guarantor Name 11/14/2023 1 [facility] (MEDICARE REPLACEMENT/A DVANTAGE - PPO) [id number] Juaquin L Krissy [id number] Juaquin Krissy 01/28/2024 1 [facility] (MEDICARE REPLACEMENT/A DVANTAGE - PPO) [id number] Juaquin L Krissy [id number] Juaquin Krissy 02/04/2024 1 [facility] (MEDICARE REPLACEMENT/A DVANTAGE - PPO) [id number] Juaquin L Krissy [id number] Juaquin Krissy 05/05/2024 1 [facility] (MEDICARE REPLACEMENT/A DVANTAGE - PPO) [id number] Juaquin L Krissy [id number] Juaquin Krissy 09/23/2024 1 [facility] (MEDICARE REPLACEMENT/A DVANTAGE - PPO) [id number] Juaquin L Krissy [id number] Juaquin Krissy Notes Date Note Type Note [...] other pedal complaints. Michael Mccrary DPM [address], [facility], [place], [address], [employer] 11/18/2023 09:19:43 01/28/2024 text/html . Patient is a 48-year-old female who returns the office for follow-up on onychomycosis of the right great toenail. Patient states overall she continues have white discoloration under the right great toe. Patient states that the nail is thickened and painful. Patient denies any treatment for this condition. Patient denies any other complaints. Michael Mccrary DPM [address], [address], [place], [address], [employer] 01/29/2024 14:01:52 02/04/2024 text/html . Patient is [...] Mccrary DPM [address], [address], [place], [address], [facility] 02/04/2024 10:06:26 05/05/2024 text/html . Patient is [...] Mccrary DPM [address], [address], [place], [address], [employer] [facility] [employer] 05/05/2024 15:17:20 09/23/2024 text/html . Patient is [...] Mccrary DPM [address], [address], [place], [address], [employer] [facility] 09/23/2024 15:27:25 OBGyn Episode No OBEpisode recorded.
--- OUTSIDE RECORDS SUMMARY | 2024-12-23 11:30 | XMS_ITS ---
Author Organization [facility] Address [address] [place] [address] Care Team Providers Care Circulation Supervisor Name Role Phone Ramon Sylvester MD Primary Care Provider Burak Blue MD Unavailable Juana Jimenez RN Unavailable Sylwia García MD Unavailable Igor Yeager DO Unavailable [phone] Cristina Boyer RN Unavailable [phone] Cyn Fang NP Unavailable [phone] Transplant Episode Kidney Recipient [facility] ([place], [place]) - [facility] Organ Received: Left Kidney Transplanted on 03/09/2019 Marked as Active Follow-up on 03/09/2019 Reason: Transplanted at [facility] Kidney CoordinatorJuana Jimenez RN Fax: N/A Email: N/A [place] Organ Diagnosis Organ Primary Contributory Kidney Diabetes [...] Fax Email Juana Jimenez RN Kidney Coordinator [phone] N/A N/A Cristina Boyer RN Secondary Coordinator Secondary Kidney Coordinator [phone] N/A N/A Burak Blue MD Referring Physician [phone] N/A Kristen Finley Primary Adon N/A N/A N/A Jose De Jesus Barrios Secondary Adon N/A N/A N/A Diane Salomon Analytics Developer [phone] N/A N/A Juana Jimenez RN Rides Attendant [phone] N/A N/A Events Post-Transplant Pre-Transplant Admitted: 03/07/2019 Referred: 10/17/2017 Transplanted: 03/09/2019 Evaluation began: 8 Discharged: 03/12/2019 Committee: 12/08/2018 Center waitlisted: 9 Dialysis History Dialysis History Start End Type Comments Center 01/13/2018 03/09/2019 Peritoneal [facility] Dialysis Center Information Center Phone Fax Address [facility] [phone] # [address] [employer] [facility] [id number]
--- OUTSIDE RECORDS SUMMARY | 2024-12-23 11:30 | XMS_ITS | Encounter Summary ---
Author Organization [facility] Health Address [address] [place] [address] Care Team Providers Care Ornament Setter Name Role Phone Ramon Sylvester MD Primary Care Provider [phone] Ramon Sylvester MD Unavailable [phone] Encounter Details Date Type Department Care Team (Late st Contact Info) Description 12/11/2017 [facility] Outpatient Visit [facility] [address] [place] [address] [place] [address] [address] Social History Tobacco Use Types [...] on filedocumented in this encounter Care Teams Ornament Setter Relationship Specialty Start Date End Date Ramon Sylvester MD PCP - General Internal Medicine 10/19/16 Ramon Sylvester MD Internal Medicine 10/19/16 documented as of this encounter
== END 2024-12-23 11:27 | disposition home or self-care (01) ==
LOC: ANHVASCINF 11:28
PROVIDERS: PCP Internal Medicine; Visit Provider Nurse Practitioner Family
DX: N39.0 Urinary tract infection, site not specified (principal)
CPT/HCPCS: 99211; G0463

== ENCOUNTER 2025-04-11 13:22 | Emergency (ER) | payer MEDICARE, SELFPAY ==
--- NOTE | ~2025-04-11 | CT_ITS ---
Juaquin Rey EXAMINATION: CT abdomen pelvis w con COMPARISON: None HISTORY: lower abd pain, n/v/d TECHNIQUE: Axial images were obtained through the abdomen, pelvis post administration of IV contrast. Oral contrast was also administered. Coronal reconstruction images were obtained from the axial views. CT scan performed using dose optimization techniques including the following automated exposure control; adjustment of mA and/or kV; use of iterative reconstruction technique. Automatic exposure control was used to reduce radiation dose. Permanent radiation dose record is archived to PACS. FINDINGS: CT abdomen: LUNG BASES: The lung bases are clear. The visualized portions of the heart and pericardium are unremarkable. LIVER: Portal vein patent. No intrahepatic biliary duct dilatation. SPLEEN: Unremarkable. KIDNEYS: Right Kidney: Right kidney is not identified in the renal bed, there is a kidney located in the right hemipelvis which appears unremarkable. Left Kidney: Left kidney appears atrophic. ADRENAL GLANDS: Unremarkable. PANCREAS: Pancreas is severely atrophic. GALLBLADDER/BILIARY: Unremarkable. No biliary dilatation. STOMACH AND ESOPHAGUS: Hyperemia noted of the gastric mucosa and esophagus may relate to underlying esophagitis and gastritis. BOWEL/MESENTERY: Moderate fecal content, no colitis or diverticulitis. Appendix not identified. No stranding within the mesentery. No thickened or dilated loops of small bowel. ADENOPATHY/RETROPERITONEUM: No lymphadenopathy. AORTA/VASCULATURE: Normal caliber aorta. FREE FLUID OR FREE AIR: No free fluid.. CT pelvis: SOLID ORGANS/REPRODUCTIVE: Post hysterectomy. No adnexal mass. BLADDER: Within normal limits. OSSEOUS STRUCTURES: No acute osseous abnormality.No suspicious lesions. OVERLYING SOFT TISSUES: There is diastases of the abdominal wall noted at the umbilicus. IMPRESSION: 1. Probable gastritis. Incidental findings above Reviewed, dictated and finalized at location A.
--- OUTSIDE RECORDS SUMMARY | 2025-04-11 13:26 | XMS_ITS | Encounter Summary ---
Author Organization [facility] Health Address [address] [place] [address] Care Team Providers Care Bat Person Name Role Phone Ramon Sylvester MD Primary Care Provider [phone] Ramon Sylvester MD Unavailable [phone] Encounter Details Date Type Department Care Team (Late st Contact Info) Description 12/11/2017 [facility] Outpatient Visit [facility] [address] [place] [address] [place] [address] [address] Social History Tobacco Use Types [...] on filedocumented in this encounter Care Teams Bat Person Relationship Specialty Start Date End Date Ramon Sylvester MD PCP - General Internal Medicine 10/19/16 Ramon Sylvester MD Internal Medicine 10/19/16 documented as of this encounter
--- OUTSIDE RECORDS SUMMARY | 2025-04-11 13:26 | XMS_ITS | Clinical Summary ---
Author Organization [facility] Address [address] [place] [address] Care Team Providers Care Office Machine Mechanic Name Role Phone Ramon Sylvester MD Primary Care Provider [phone] Ramon Sylvester MD Unavailable [phone] Source Comments [facility],non-owned Affiliates and Associated Physician Practices is amultiple site organization consisting of ambulatory clinics and hospital sitesin [place], [place], [place] and [place]. This disclosure is being madepursuant to the Care Everywhere program and may not contain all information available regarding this patient. Last updated 18.[facility] Allergies Active Allergy Reactions Criticality [...] MCG/ACT nasal sprayIndicatio ns:Nasal Signs and Symptoms [place] 2 Sprays into each nostril once daily [...] 02/04/2024 ZOSTER VACCINE (1 of 2) 02/04/2024 DEPRESSION SCREENING 07/29/2024 COVID-19 VACCINE (1 - 2023-2 5 season) 2025 INFLUENZA VACCINE (#1) 2025 07/06/2015 HIB VACCINE Aged Out No longer eligi [...] age to complete this topic Insurance MEDICARE [facility] Address: [address] [place] [address] Care Teams Office Machine Mechanic Relationship Specialty Start Date End Date Ramon Sylvester MD PCP - General Internal Medicine 10/19/16 Ramon Sylvester MD Internal Medicine 10/19/16
--- OUTSIDE RECORDS SUMMARY | 2025-04-11 13:26 | XMS_ITS ---
Author Organization [facility] Address [address] [place] [address] Care Team Providers Care Tire Curer Name Role Phone Ramon Sylvester MD Primary Care Provider Burak Blue MD Unavailable [phone] Juana Jimenez RN Unavailable Sylwia García MD Unavailable Igor Yeager DO Unavailable Cristina Boyer RN Unavailable [phone] Cyn Fang NP Unavailable Gavi Cervantes NP Unavailable Transplant Episode Kidney Recipient [facility] ([place] [place] - [facility] Organ Received: Left Kidney Transplanted on 03/09/2019 Marked as Active Follow-up on 03/09/2019 Reason: Transplanted at [facility] Kidney CoordinatorJuana Jimenez RN Fax: N/A Email: N/A Kashia Organ Diagnosis Organ Primary Contributory Kidney Diabetes Mellitus - Type II Infection History Noted Survival Infection Treatment Organism Resolved 06/03/2023 4 years 2 months COVID 11 / Donor Information Organ ABO Source Meets Risk [...] Fax Email Juana Jimenez RN Kidney Coordinator [phone] N/A N/A Cristina Boyer RN Secondary Coordinator Secondary Kidney Coordinator [phone] N/A N/A Burak Blue MD Referring Physician [phone] N/A Kristen Finley Primary Nailer Operator N/A N/A N/A Jose De Jesus Barrios Secondary Nailer Operator N/A N/A N/A Diane Salomon Poultryman [phone] N/A N/A Juana Jimenez convenience store managerExerciser Horse [phone] N/A N/A Events Post-Transplant Pre-Transplant Admitted: 03/07/2019 Referred: 10/17/2017 Transplanted: 03/09/2019 Evaluation began: 8 Discharged: 03/12/2019 Committee: 12/08/2018 Center waitlisted: 9 Appointments (03/11/2025 - 05/11/2025) When With Visit Type Description 04/05/2025 Transplant - Lars Mooney Encoun [facility] for aftercare following kidney transplant (Primary Dx); Kidney replaced by transplant; Encounter for long-term (current) use of high-risk medication; Hypertension, unspecified type; 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
--- OUTSIDE RECORDS SUMMARY | 2025-04-11 13:26 | XMS_ITS | Clinical Summary ---
Author Organization [facility] Address [address] [place] [address] Care Team Providers Care Manager Nuclear Name Role Phone Ramon Chaney MD Primary Care Provider [phone] Burak Blue MD Unavailable [phone] Juana Jimenez RN Unavailable Sylwia García MD Unavailable [phone] Igor Yeager DO Unavailable [phone] Cristina Boyer RN Unavailable Cyn Fang NP Unavailable Gavi Cervantes NP Unavailable Allergies Active Allergy Reactions Criticality [...] mg total) by mouth nightly 30 tablet 023 Active albuterol HFA (PROVENTIL HFA,VENTOLIN HFA,PROAIR HFA) 90 mcg/actuation inhaler Inhale 2 puffs every 6 (six) hours as needed for wheezing or shortness of breath Active timoloL (BETIMOL) 0.5 % ophthalmic solution Administer 1 drop into both eyes 2 (two) times a day Active glycerin (Biotrue Hydration Boost) 0.5 % drops Administer 1 drop into affected eye(s) as needed (dry eyes) Active ketoconazole (NIZORAL) 2 % cream Active pen needle, diabetic (BD Ultra-Fine Mini Pen Needle) 31 gauge x 3/16 needleIndications :Type 1 diabetes mellitus with other specified complication USE TO INJECT INSULIN THREE TO FIVE TIMES PER DAY. 500 each 4 024 Active blood-glucose meter,continuous (FreeStyle Lynda 3 [place]) [facility] Use as directed to check blood sugar in conjunction with sensors. 1 each 024 Active Breo Ellipta 100-25 mcg/dose diskus inhaler INHALE 1 PUFF BY MOUTH DAILY -RINSE MOUTH WITH WATER AFTER USE. DO NOT SWALLOW 60 each 3 024 Active predniSONE (DELTASONE) 5 mg tablet TAKE 1 TABLET BY MOUTH EVERY DAY 30 tablet 11 024 Active Zenpep 60,000-189,600- 252,600 unit capsule,delayed release(DR/EC) TAKE 1 CAPSULE BY MOUTH WITH MEALS AND/OR SNACKS 024 Active cholecalciferol (VITAMIN D-3) 2000 unit capsule TAKE 1 CAPSULE BY MOUTH EVERY DAY 90 capsule 3 024 Active omeprazole (PriLOSEC) 20 mg capsuleIndication s:Kidney replaced by transplant TAKE 1 CAPSULE BY MOUTH EVERY DAY 90 capsule 3 025 Active atorvastatin (LIPITOR) 20 mg tablet TAKE 1 TABLET BY MOUTH EVERY DAY 90 tablet 3 025 Active blood-glucose sensor (FreeStyle Lynda 3 Plus Sensor) device Use 1 sensor every 15 days 6 each [address] (DEPAKOTE) 500 mg EC tablet TAKE 1 TABLET BY MOUTH THREE TIMES A DAY 270 tablet 025 Active azaTHIOprine (IMURAN) 50 mg tabletIndications :Kidney replaced by transplant TAKE 1 TABLET BY MOUTH EVERY DAY 100 tablet 3 025 Active aspirin 81 mg enteric coated tablet TAKE 1 TABLET BY MOUTH EVERY DAY 90 tablet 3 025 Active furosemide (LASIX) 20 mg tablet TAKE 1 TABLET BY MOUTH EVERY DAY 90 tablet 3 025 Active glucagon (Baqsimi) 3 mg/actuation spray,non-aerosol Indications:Type 1 diabetes mellitus with other specified complication Administer 1 spray into one nostril as needed (For severe low blood sugar) 3 each 025 Active insulin aspart, B3, pump cart (Fiasp Pumpcart) 100 unit/mL (1.6 mL) cartridgeIndicati ons:type 1 diabetes mellitus,Patient is diagnosed legally blind For use with Ilet Insulin pump 60 TDD units, to change pump cartridge every 2 days 24 mL 025 Active insulin glargine (TOUJEO) 300 unit/mL (1.5 mL) pen for injectionIndicati ons:Type 1 diabetes mellitus with other specified complication Inject 28 Units under the skin daily 9 mL 025 Active Additional Information Patient not taking.Reported on 04/05/2025 acetone, urine, test stripIndications: Type 1 diabetes mellitus with other specified complication Use as directed when blood sugar > 300 mg/dl 50 strip 2 025 Active tacrolimus XR (Envarsus XR) 1 mg tablet extended release 24 hrIndications:Kid andres replaced by transplant Take 3 tablets (3 mg total) 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 DO NOT TAKE ON 11/28, THEN RESUME SAT 11/29 270 tablet 6 Active carvediloL (COREG) 12.5 mg tablet Take 1 tablet (12.5 mg total) by mouth 2 (two) times a day with meals 180 tablet 3 025 2025 Active magnesium oxide (MAG-OX) 400 mg (241.3 mg elemental magnesium) tablet TAKE 1 TABLET BY MOUTH EVERY DAY 90 tablet Active montelukast (SINGULAIR) 10 mg tablet TAKE 1 TABLET BY MOUTH EVERY DAY 90 tablet 2 Active traMADoL (ULTRAM) 50 mg tablet Take 2 tablets (100 mg total) by mouth every 6 (six) hours as needed for pain 240 tablet Active sertraline (ZOLOFT) 50 mg tablet TAKE 1 TABLET BY MOUTH EVERY DAY 90 tablet 3 Active zolpidem (AMBIEN) 10 mg tablet TAKE 1 TABLET BY MOUTH NIGHTLY NEEDED FOR SLEEP 30 tablet 1 Active ALPRAZolam (XANAX) 0.5 mg tabletIndications :Anxiety TAKE 1 TABLET (0.5 MG TOTAL) BY MOUTH 3 (THREE) TIMES A DAY NEEDED FOR ANXIETY. 90 tablet Active HumaLOG 100 unit/mL pen for injectionIndicati ons:Type 1 diabetes mellitus with other specified complication Inject 6 units for breakfast, 10 units for lunch and 6 units for dinner plus correction scale. TDD 50 units. 15 mL 11 Active Additional Information Patient not taking.Reported on 04/05/2025 Contour Next Test Strips stripIndications: Type 1 diabetes mellitus with other specified complication Use to test blood sugar 1 times per day. 100 each 3 Active gabapentin (NEURONTIN) 300 mg capsule Take 1 capsule (300 mg total) by mouth 3 (three) times a day 270 capsule 4 025 2025 Active tirzepatide (Mounjaro) 2.5 mg/0.5 mL pen injector injectionIndicati ons:Insulin resistance,Diabet es mellitus with features of insulin resistance (HCC) Inject 0.5 mL (2.5 mg total) under the skin once a week 2 mL 11 025 Active acidophilus-pecti n, citrus 100 million cell-10 mg capsule Take by mouth Activ e cranberry 500 mg capsule Take by mouth Active haloperidoL (HALDOL) 1 mg tablet Take 1 tablet (1 mg total) by mouth 3 (three) times a day as needed (Nausea/vomiti ng) 2024 Discontinued(T herapy completed) insulin lispro (HumaLOG MARELY) 100 unit/mL half-unit pen for injectionIndicati ons:Type 1 diabetes mellitus with other specified complication 1:13 CARB RATIO WITH BREAKFAST, 1:15 CARB RATIO WITH LUNCH AND 1:13 CARB RATIO WITH SUPPER PLUS SLIDING SCALE 1 UNIT FOR EVERY 50 POINTS GREATER THAN 150 MAX DAILY DOSE IS 30 UNITS. 30 mL 3 024 2024 Discontinued(A lternate therapy) sertraline (ZOLOFT) 50 mg tablet TAKE 1 TABLET BY MOUTH EVERY DAY 90 tablet 3 024 2024 Discontinued potassium chloride ER 20 mEq CR tablet TAKE 1 TABLET BY MOUTH TWICE A DAY FOR 5 DAYS 024 2024 Discontinued(T herapy completed) montelukast (SINGULAIR) 10 mg tablet TAKE 1 TABLET BY MOUTH EVERY DAY 90 tablet 2 025 2024 Discontinued gabapentin (NEURONTIN) 100 mg capsule Take 1 capsule (100 mg total) by mouth 3 (three) times a day 90 capsule 11 025 2024 Discontinued(A lternate therapy) magnesium oxide (MAG-OX) 400 mg (241.3 mg elemental magnesium) tablet TAKE 1 TABLET BY MOUTH EVERY DAY 30 tablet 2 025 2024 Discontinued zolpidem (AMBIEN) 10 mg tablet Take 1 tablet (10 mg total) by mouth nightly as needed for sleep 30 tablet 1 025 2024 Discontinued ALPRAZolam (XANAX) 0.5 mg tabletIndications :Anxiety TAKE 1 TABLET (0.5 MG TOTAL) BY MOUTH 3 (THREE) TIMES A DAY NEEDED FOR ANXIETY. 90 tablet 025 08/18/ 2025 Discontinued traMADoL (ULTRAM) 50 mg tablet Take 2 tablets (100 mg total) by mouth every 6 (six) hours as needed for pain 240 tablet 025 2024 Discontinued blood glucose diagnostic (glucose blood) stripIndications: Type 1 diabetes mellitus with other specified complication Use test blood sugar 1 times per day. 100 each 3 025 2024 Discontinued(A lternate therapy) Active Problems Patient Care Coordination No te Formatting of this note migh t be different from the original. Lab: [facility]- [phone] Standing Orders q-monthly FK, q3-HgbA1C. Exp. 06/16/25 Home Health: [facility] Home Care Local Pharmacy:[facility] [address] Specialty Pharmacy: [facility] Problem Noted Date Diagnosed Date Claudication 03/23/2025 Assessment & Plan (03/23/2025 3:38 PM CDT): Differential diagnosis includes vascular disease or pseudo claudication. Will increase gabapentin. Will also check peripheral arterial Doppler Pancreatic insufficiency 07/11/2024 Localized edema 01/22/2024 Assessment & Plan (01/22/2024 4:11 PM CDT): Continue furosemide Abnormal urinalysis/ UTI 11/26/2023 Assessment & Plan (11/29/2023 12:12 AM CDT): Reports experiencing burning sensation during urination and pain during urination for more than 2-3 months and has had multiple visit at [facility] in [place] with multiple abnormal urinalyses and recent cultures [...] home) Assessment & Plan (06/25/2023 3:24 PM RESTAURANT HOURLY MANAGER): Continue Ambien Assessment & Plan (02/24/2023 2:03 AM CDT): Cont home ambien PRN, reduce 10mg -> 5mg Liver lesion, right lobe 10/06/2022 detention current use of insulin 06/07/2022 Prolonged Q-T interval on ECG 02/23/2021 Assessment [...] hypoglycemia Assessment & Plan (08/08/2021 3:28 PM RESTAURANT HOURLY MANAGER): -Affects post meal glucose readings -Closely monitor [...] 3:25 PM CDT): S/p right nephrectomy of [place] right kidney. POD1 N/V and Abd pain. [...] glucoses. Assessment & Plan (06/07/2022 5:24 PM RESTAURANT HOURLY MANAGER): This affects her ability to see a [...] Stable. Assessment & Plan (06/03/2023 5:34 AM RESTAURANT HOURLY MANAGER): Previous history of smoking. - Continue home inhalers and singulair. Essential hypertension 11/15/2019 Assessment & Plan (11/17/2024 3:59 PM CDT): BP at target Assessment & Plan (06/03/2023 5:41 AM RESTAURANT HOURLY MANAGER): Hold amlodipine for soft blood pressures. Assessment [...] 11/15/2019 Assessment & Plan (06/03/2023 5:43 AM RESTAURANT HOURLY MANAGER): Continue home statin. Assessment & Plan (02/24/2023 2:01 AM CDT): Cont home atorva 20mg. Assessment & Plan (11/05/2022 9:21 AM CDT): On atorvastatin 20mg. Optimize glycemic control. 10/2022- TG 173, HDL 66, LDL 66 Assessment & Plan (06/07/2022 5:29 PM RESTAURANT HOURLY MANAGER): Continue statin therapy (atorvastatin 20mg) and optimize [...] stable. 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 Assessment & Plan (06/07/2022 5:38 PM RESTAURANT HOURLY MANAGER): Hemoglobin A1c increased to 8.5% on 05/22/2022. [...] insulin. Assessment & Plan (08/08/2021 3:28 PM RESTAURANT HOURLY MANAGER): -Currently taking MDI and using Lynda -A1C [...] control. Assessment & Plan (06/07/2022 5:25 PM RESTAURANT HOURLY MANAGER): Managed by Dr. Bhatt. Needs optimal glycemic control. Assessment & Plan (03/23/2022 9:06 AM CDT): Managed by Dr. Bhatt. Needs optimal glycemic control Assessment & Plan (07/11/2020 5:49 PM RESTAURANT HOURLY MANAGER): Resolved following course of antiviral therapy. 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 Assessment & Plan (06/07/2022 5:25 PM RESTAURANT HOURLY MANAGER): Taking daily immunosuppressants which complicate glycemic management. Assessment & Plan (08/06/2021 3:09 PM RESTAURANT HOURLY MANAGER): -detention use of immunosuppressants and steroids complicates diabetes [...] has. I encouraged her to see an salesperson parts again just to make sure that she does or does not need ongoing follow-up Assessment & Plan (08/06/2021 3:07 PM RESTAURANT HOURLY MANAGER): -Patient is legally blind -CGM allows for increase in safety as there is audile alarm for high and low blood sugars Resolved Problems Problem Noted Date Diagnosed Date Resolved Date Ketosis 06/03/2023 06/25/2023 Assessment & Plan (06/03/2023 5:41 AM RESTAURANT HOURLY MANAGER): Patient presenting with nausea and vomiting that [...] 06/25/2023 Assessment & Plan (06/03/2023 5:45 AM RESTAURANT HOURLY MANAGER): Presenting with 1 week history of UT [...] PM CDT): Fully vaccinated, eligible for booster. 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 Change Lantus from hs to AM to decrease overnight lows. Assessment & Plan (11/05/2022 9:19 AM CDT): Need to minimize risk of hypoglycemia. Assessment & Plan (06/07/2022 5:23 PM RESTAURANT HOURLY MANAGER): Now improved, but still need to minimize risk of hypoglycemia. Assessment & Plan (03/23/2022 9:03 AM CDT): Now improved, but still need to minimize risk of hypoglycemia Non-intractable vomiting 03/28/2021 Overview (03/28/2021): Added automatically from request for surgery [id number] Colon cancer screening 03/28/202104/19 Overview (03/28/2021): Added automatically from request for surgery [id number] Gastroparesis 02/23/2021 06/25/2023 Assessment & Plan (02/20/2023 [...] 02/23/2021 Assessment & Plan (08/08/2021 3:29 PM RESTAURANT HOURLY MANAGER): -BP today is 132/78 -Will continue same [...] or scopolamine patch. She does not meet [facility] criteria for use of palonosetron. [...] 08/03/2020 Assessment & Plan (08/03/2020 3:05 PM RESTAURANT HOURLY MANAGER): Plan is to give Augmentin 875/125 b.i.d. [...] Encounters Date Type Department Care Team Description 04/08/2025 Lab [facility] Transplant Kidney [address] [facility] [address] [phone] [place] [address] America Rosa MD 04/06/2025 Telephone [facility] Transplant Kidney [address] [facility] [address] [phone] [place] [address] Juana Jimenez RN 04/05/2025 2:00 PM CDT [facility] ([facility]) [address] [place] [address] Encounter for aftercare following kidney transplant 04/05/2025 10:45 AM CDT Office Visit [facility] [address] [facility] Medicine 5th [place] [address] [place] [address] Lainey Mooney NP Encounter for aftercare following kidney transplant (Primary Dx); Kidney replaced by transplant; Encounter for long-term (current) use of high-risk medication; Hypertension, unspecified type; detention current use of immunosuppressive drug; High risk medication use 03/31/2025 Results Follow-Up [facility] [address] [place] [id number] Ramon Chaney MD US Arterial Doppler Lower Extremity Bilateral 03/26/2025 3:30 PM CDT [facility] Met[facility]id [address] [facility] 13th [place] [address] [place] [address] Erica Tyler MD Type 1 diabetes mellitus with other specified complication (Primary Dx); detention current use of insulin (HCC); Mixed hyperlipidemia; Essential hypertension; Insulin resistance; Diabetes mellitus with features of insulin resistance (HCC) 03/25/2025 1:45 PM CDT Ancillary Procedure [facility] at the [facility] [address] [facility] 8th [place] [address] [place] [address] Claudication 03/23/2025 3:15 PM CDT Office Visit [facility] [address] [facility] [place] [address] Ramon Chaney MD Claudication (Primary Dx); Renal transplant recipient; Type 1 diabetes mellitus with other specified complication; Essential hypertension 03/18/2025 3:00 PM CDT Clinical Support [facility] [address] [facility] [address] [place] [address] [place] [address] Type 1 diabetes mellitus with other specified complication (Primary Dx) 03/16/[address] [facility] [address] [facility] [address] [place] [address] [place] [address] Jose Rafael Ramos MD 03/10/2025 Telephone [facility] Transplant Kidney [address] [facility] [address] [address] [place] [address] Francheska Esteves 03/09/2025 Telephone [facility] Trans[facility] Kidney [address] [facility] [address] [place] [address] Mirtha Taylor 03/08/2025 Telephone [facility] Transplant Kidney [address] [facility] [address] [address] [place] [address] Mirtha Taylor 02/15/2025 2:00 PM CDT Clinical Support [facility] End[facility]inology Metabolism and Lipid [address] [facility] [address] [place] [address] [place] [address] Type 1 diabetes mellitus with other specified complication (HCC) (Primary Dx) 02/08/2025 Telephone [facility] [address] [facility] [address] [place] [address] [place] [address] Cheyanne Diaz RMA Prior Authorizatin (Ilet Insulin Pump Device) 02/05/2025 Telephone [facility] [address] [facility] [address] [place] [address] [place] [address] Cheyanne Diaz RMA Prior Auth (Insulin Glargine Solostar U300) 01/27/2025 2:00 PM CDT [facility] [address] [facility] [address] [place] [address] [place] [address] Ivelisse Obando RN Type 1 diabetes mellitus with other specified complication (HCC) (Primary Dx) 01/19/[address] [facility] [address] [facility] 5th [place] [address] [place] [address] Jose Rafael Ramos MD from Last 3 Months Immunizations Immunization Administration Dates Next Due COVID-19 mRNA (PFIZER) 0.3 m L (30 mcg) vaccine (12 years and up) 04/05/2024 Hep B Vaccine 10/03/2018, 9,06/06/2018,06/06,05/02/2018,05/02/2018,04/23/2018 ,04/23/2018 Influenza, Quadrivalent, Hig h Dose, Preservative Free, Intrr 05/02/2020 Influenza, Quadrivalent, Spl it, Intramuscular 07/08/2015,07/08/2015 Influenza, [...] transplant notes Lee positive DM (diabetes mellitus) type 1 COPD (chronic obstructive pu lmonary disease) DVT, lower extremity (HCC) right leg Nausea vomiting and diarrhea 02/23/2021 Hypertension Hyperlipidemia Type 2 diabetes mellitus Depression Anxiety History of transfusion Family History Medical History Relation Name Comments No Known Problems Father Colon polyps Mother Relation Name Status Comments Father Mother Social History Tobacco Use Types Packs/Day Years Used Date Smoking Tobacco: Former Cigarettes - 10/2017 Smokeless Tobacco: Never Tobacco Cessation:Counseling Given: Not Answered Alcohol Use Standard Drinks/Week Comments No 0 (1 standard drink = 0.6 oz pur e alcohol) [facility] Utilities Answer Date Recorded In the past 12 months has [employer], gas, oil, or water [employer] threatened to shut off services in your home? Patient unable to answer 11/28/2023 Social Connection and Isolation Panel Answer Date Recorded In a typical week, how many times do you talk on the phone with family, friends, or neighbors? Patient unable to answer 11/28/2023 How often do you get togethe r with friends or relatives? Patient unable to answer 11/28/2023 How often do you attend chur ch or baptist services? Patient unable to answer 11/28/2023 Do you belong to any clubs o r organizations such as quaker groups, unions, fraternal or athletic groups, or [...] place to sleep or slept in a long-term (including now)? Patient unable to answer 11/28/2023 Personal Safety Answer Date Recorded Have you ever been in or are you currently in a harmful physical or emotional relationship or is someone making you feel afraid or unsafe? 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 Not on file Not on file Not on file Obstetrics History Last Filed Vital Signs Vital Sign Reading Time Taken Comments Blood Pressure 122/75 04/05/2025 11:13 AM CDT Pulse 87 04/05/2025 11:13 AM CDT Temperature 36.9 C (98.4 F) 04/05/2025 11:13 AM CDT Respiratory Rate 18 12/20/2023 2:32 PM CDT Oxygen Saturation 97% 12/20/2023 2:32 PM CDT Inhaled Oxygen Concentration - - Weight 71.2 kg (157 lb) 04/05/2025 11:13 AM CDT Height 157.5 cm (5' 2) 04/05/2025 11:13 AM CDT Body Mass Index 28.72 04/05/2025 11:13 AM CDT Plan of Treatment Scheduled Procedures Name Priority Associated Diagnoses Date/Ti me TRANSPLANT KIDNEY ESRD (end stage renal disease) (HCC) Health Maintenance Due Date Last Done Comments Breast Cancer Screening-Mammogram 1974 Depression Screening 1974 DTaP/Tdap/Td Vaccine (1 - Tdap) 1985 Regular Well Visit/Exam 18-64 02/04/1992 Pneumococcal vaccine <65 (2 of 2 - PPSV23, PCV20, or PCV21) 05/01/2019 03/06/2019, 03/06/2019, 07/08/2015, Additional history exists TSH Level 10/25/2021 10/25/2020, 08/0 10/2019, 07/06/2019 Zoster Vaccine (2 of 2) 10/16/2024 08/21/2024 Dilated Eye Exam 10/27/2024 10/28/2023 Covid-19 Vaccine (6 - Pfizer risk 2023- season) 2025 04/05/2024, 04/17/2021, 11/20/2020, Additional history exists Influenza Vaccine (#1) 2025 , 06/24/2020, 05/02/2020, Additional history exists Lipid Panel 05/26/2025 05/26/2024, 072 09/2023, 11/19/2023, Additional history exists Albumin Creatinine Ratio, Urine 07/14/2025 , 07/06/2019 Hemoglobin A1C 09/18/2025 03/18/2025, 05/0 03/2025, 05/26/2024, Additional history exists Foot Exam 12/04/2025 12/04/2024 eGFR 04/05/2026 04/05/2025, 02/26, 01/19/2025, Additional history exists Colon Cancer Screening-Colonoscopy 05/08/20322021, 05/07/2022 Hepatitis C Screening Completed 04/29/2024 , 11/05/2022, 06/07/2022, Additional history exists Medical Devices Explanted Type Area Consulting Sales Manager Device Identifier Shelf Expiration Date Model / Serial / Lot [employer]Surgit ek [id number] 6fr 20cm 100cm 1 Step Insert Push Catheter [place] Suture - [id number] Implanted:Qty : 1 on 03/09/2019 by Tommie Cortes MD at [facility] Explanted:Qty : 1 on 04/06/2019 by Ted Farrell NP Stent Right: Ureter [employer]-Surgitek [id number] 02/14/2023 [id number] / / [id number] Description:Transplanted Ure ter Procedures Procedure Name Priority Date/Time Associated Diagnosis Comments HLA DONOR SPECIFIC ANTIBODY REPORT 04/05/2025 12:08 PM CDT EGFR Routine 04/05/2025 12:08 PM CDT Encounter for aftercare following kidney transplant BASIC METABOLIC PANEL Routine 04/05/2025 12:08 PM CDT Encounter for aftercare following kidney transplant HLA ANTIBODY SCREEN - DSA (CLASS I AND CLASS II) Routine 04/05/2025 12:08 PM CDT Encounter for aftercare following kidney transplant BK VIRUS PCR QUANTITATIVE Routine 04/05/2025 12:08 PM CDT Encounter for aftercare following kidney transplant CYTOMEGALOVIRUS (CMV) DNA, QUANT GEN LAB Routine 04/05/2025 12:08 PM CDT Encounter for aftercare following kidney transplant HLA ANTIBODY SCREEN BY SINGLE ANTIGEN Routine 04/05/2025 11:28 AM CDT Encounter for aftercare following kidney transplant POCT URINALYSIS DIPSTICK Routine 04/05/2025 11:11 AM CDT Encounter for aftercare following kidney transplant ALLOSURE KIDNEY DONOR-DERIVED CELL-FREE DNA (CFDNA) Routine 04/05/2025 POCT GLUCOSE [id number] Routine 03/26/2025 3: 43 PM CDT Type 1 diabetes mellitus with other specified complication US ARTERIAL DOPPLER LOWER EXTREMITY BILATERAL Schedule Routine, Read Routine (OP Routine) 03/25/2025 2:40 PM CDT Claudication POCT HEMOGLOBIN A1C Routine 03/18/2025 3 :22 PM CDT Type 1 diabetes mellitus with other specified complication TACROLIMUS, HIGHLY SENSITIVE, LC/MS/MS Routine 03/16/2025 8:07 AM CDT RENAL FUNCTION PANEL Routine 03/16/2025 8:07 AM CDT CBC WITH AUTO DIFFERENTIAL Routine 03/16/2025 8:07 AM CDT COPY(IES) SENT TO: Routine 03/16/2025 8: 07 AM CDT TACROLIMUS, HIGHLY SENSITIVE, LC/MS/MS Routine 01/19/2025 8:13 AM CDT CBC WITH AUTO DIFFERENTIAL Routine 01/19/2025 8:13 AM CDT RENAL FUNCTION PANEL Routine 01/19/2025 8:13 AM CDT COPY(IES) SENT TO: Routine 01/19/2025 8: 13 AM CDT ALBUMIN CREATININE RATIO, URINE Routine 07/14/2024 8:26 AM RESTAURANT HOURLY MANAGER Type 1 diabetes mellitus with other specified complication (HCC) LIPID PANEL Routine 05/26/2024 DIABETIC EYE EXAM Routine 10/28/2023 2:2 7 PM CDT COLONOSCOPY 05/08/2022 12:35 PM CDT TSH Routine 10/25/2020 2:58 PM CDT Anxiety HEPATITIS C RNA, QUANTITATIVE, PCR STAT 03/02/2020 4:44 PM CDT from Last 3 Months or Most Recently Relevant to Health Maintenance Results * BK virus PCR quantitative Blood (04/05/2025 12:08 PM CDT) [facility] BKV DNA result, pl Not Detected [facility] Comment: The quantifiable range of this assay is 21.5 IU/mL to 100,000,000 IU/mL (1.33 log IU/mL to 8.00 log IU/mL). Testing was performed by the KARLY 6800 BKV Quantatitive Test version 2.0 ([employer] Testing performed at [facility] Current Interpretive Data was last revised on 2021. Blood 04/05/2025 12:0 8 PM CDT 04/05/2025 1:12 PM CDT us Lainey Mooney NP LAB MICROBIOLOGY - GENERAL O RDERABLES Final Result MAXMIO [facility] [place] [address] [facility] * HLA Donor Specific Antibody Report (04/05/2025 12:08 PM CDT) Lainey Mooney NP LAB BLOOD ORDERABLES Final R esult * HLA Antibody Screen - DSA (Class I and Class II) (04/05/2025 12:08 PM CDT) Blood 04/05/2025 12:0 8 PM CDT 04/06/2025 11:21 AM CDT Narrative HISTOTRAC - 04/06/2025 11:21 AM CDT Lainey Mooney NP LAB BLOOD ORDERABLES Final R esult Performing Organization Address [facility] Co de Phone Number HISTMONIQUEAC * Cytomegalovirus (CMV) DNA PCR, quantitative Blood (04/05/2025 12:08 PM CDT) Pathologist [facility] CMV DNA Not Detected [facility] Comment: Interpretive Data: The quantifiable range of this assay is 34 IUnits/mL to 10,000,000 IUnits/mL (1.53 log IUnits/mL to 7.0 log IUnits/mL). Testing was performed by the KARLY 6800 CMV Test ([employer] Testing performed at [facility]. Current interpretive data was last revised on 2021. Blood 04/05/2025 12:0 8 PM CDT 04/05/2025 1:12 PM CDT Lainey Mooney NP LAB MICROBIOLOGY - GENERAL O RDERABLES Final Result MAXIMO [facility] [place] [address] [facility] * (ABNORMAL) eGFR (04/05/2025 12:08 PM CDT) [facility] eGFR 45(L) >=60 mL/min/1. 73 m2 Comment: Interpretive Data Reference Interval Normal >/= 90 mL/min/1.73m2 Mildly decreased* 60 - 89 mL/min/1.73m2 Mildly to moderately decreased 45 - 59 mL/min/1.73m2 Moderately to severely decreased 30 - 44 mL/min/1.73m2 Severely decreased 15 - 29 mL/min/1.73m2 Kidney Failure < 15 mL/min/1.73m2 *Relative to young adult level Estimated glomerular filtration rate is determined by the 2020 CKD-EPI equation recommended by the National Kidney Foundation (A Unifying Approach to GFR Estimation: Recommendations of the NKF-ASK Task Force on Reassessing the Inclusion of Race in Diagnosing Kidney Disease, JASN 202). The CKD-EPI equation should not be used for patients with unstable renal function and has not been validated in children and those over 70. Current interpretive data was last reviewed 2021. Blood 04/05/2025 12:0 8 PM CDT 04/05/2025 1:20 PM CDT us Lainey Mooney NP LAB BLOOD ORDERABLES Final R esult [facility] [place] [address] * (ABNORMAL) Basic metabolic panel (04/05/2025 12:08 PM CDT) Sodium 137 135 - 145 mmol/L Potassium, pl 3.7 3.3 - 4.9 mmol/L [facility] Chloride 95(L) 97 - 110 mmol/L [facility] CO2 33(H) 22 - 32 mmol/L [facility] Anion gap 9 2 - 15 mmol/L [facility] BUN 23 6 - 25 mg/dL [facility] Creatinine 1.42(H) 0.60 - 1.10 mg/dL [facility] Glucose 153 70 - 199 mg/dL [facility] Comment: Interpretive Data Fasting glucose >/= 126 mg/dl is diagnostic for diabetes. Fasting is defined as no caloric intake for at least 8 hours. Fasting glucose between 100 mg/dl to 125 mg/dl is diagnostic of prediabetes. In a patient with classic symptoms of hyperglycemia or hyperglycemic crisis, a random glucose >/= 200 mg/dl is diagnostic for diabetes. In the absence of unequivocal hyperglycemia, results should be confirmed by repeat testing. The classification and Diagnosis of Diabetes Diabetes Care 2021; 46: S19-S40. Current interpretive data was last revised 2022. Calcium 10.2 8.5 - 10.3 mg/dL [facility] Blood 04/05/2025 12:0 8 PM CDT 04/05/2025 1:20 PM CDT Lainey Mooney NP LAB BLOOD ORDERABLES Final R esult [facility] [place] [address] * Collection Task for HLA Antibody Screen (04/05/2025 11:28 AM CDT) [facility] HLA Antibody Screen By Single Antigen Received Blood 04/05/2025 11:2 8 AM CDT 04/06/2025 9:55 AM CDT Lainey Mooney NP LAB BLOOD ORDERABLES Final R esult Performing Organization Address City/[facility] Co de Phone Number [facility] [place] [address] * POCT urinalysis dipstick (04/05/2025 11:11 AM CDT) Pathologist [facility] Glucose, ur, POC Negative Negative TXP NO LAB FOUND Bilirubin, ur, POC Negative Negative TXP NO LAB FOUND Ketones, ur, POC Negative Negative TXP NO LAB FOUND Specific [place], POC 1.015 1.003 - 1.030 TXP NO LAB FOUND Blood, ur, POC Negative Negative TXP N O LAB FOUND pH, ur, POC 6.0 5.0 - 8.0 TXP NO L AB FOUND Protein, ur, POC Negative Negative TXP NO LAB FOUND Urobilinogen, urine, POC 0.2 0.2 - 1.0 mg/dL TXP NO LAB FOUND Nitrite, ur, POC Negative Negative TXP NO LAB FOUND Leukocytes, ur, POC Negative Negative TXP NO LAB FOUND Lot Number [id number] TXP NO LA B FOUND Urine 04/05/2025 11:1 1 AM CDT Lainey Mooney NP POINT OF CARE TEST ORDERABLE S Final Result TXP NO LAB FOUND * Allosure kidney donor-derived cell-free DNA (cFDNA) (04/05/2025) Pathologist [facility] SCRIBED Allosure cfDNA 0.10 % TXP NO LAB FOUND Plasma 04/05/2025 Historical Provider LAB BLOOD ORDERABLES Edit ed Result - Final Performing Organization Address City/[facility]/ZIP Co de Phone Number TXP NO LAB FOUND * POCT glucose (03/26/2025 3:43 PM CDT) Pathologist [facility] Glucose Blood, POC 200 Normal Fasting 70 - 100, Random <200 mg/dL Blood 03/26/2025 3:43 PM CDT Erica Tyler MD POINT OF CARE TEST O RDERABLES Final Result * US Arterial Doppler Lower Extremity Bilateral (03/25/2025 2:40 PM CDT) Anatomical Region Laterality Modality Vascular N/A Ultrasound 03/25/2025 2:07 PM CDT Narrative 03/26/2025 6:31 AM CDT [facility] - Department of Vascular Surgery, Vascular Laboratory [address] [place] [address] Lower Extremity Arterial Doppler Report Patient Name: KENDY LOMELI : 1975 Study Date: 03/25/2025 2:07:00 PM Gender: F Tech: Dilcia Rojas RDMS,RVT Location: [facility] Ref Provider: RAMON CHANEY Quality: Adequate Order Provider: RAMON CHANEY PROCEDURES: Arterial Report: Bilateral lower extremity arterial Doppler exam at rest. INDICATIONS: claudication Dx: Claudication [I73.9 (ICD-10-CM)] I73.9 Peripheral vascular disease, unspecified. MEASUREMENTS: Right Value Units Left Value Units Rt Brachial Pressure 143 mmHg Lt ICE CREAM SCOOPER Pressure 144 mmHg Rt ICE CREAM SCOOPER Pressure 138 mmHg Lt DPA Pressure 146 mmHg Rt DPA Pressure 139 mmHg Lt 1st Digit Pressure 91 mmHg Rt 1st Digit Pressure 106 mmHg Lt PT BIANCA Resting 1.01 Rt PT BIANCA Resting 0.97 Lt AT BIANCA Resting 1.02 Rt AT BIANCA Resting 0.97 Lt Digit/Arm Index 0.64 Rt Digit/Arm Index 0.74 Right Value Units Left Value Units FINDINGS: Performing Linux Programmer: Dilcia Mock, [place], [place]. Bilateral All Levels : The bilateral common femoral, popliteal, posterior tibial and anterior tibial artery waveforms are multiphasic. Right Digits: Normal right digit pressure and waveform. Left Digits: Normal left digit pressure and waveform. Comments: Left brachial BP deferred due to patients request. CONCLUSIONS: 1. The above listed Ankle/Brachial Indices at rest are within normal limits bilaterally (for reference, normal resting BIANCA is 0.9 to 1.4; BIANCA >1.4 due to non- compressible arteries is not diagnostic). 2. Bilateral Digit/Arm Indices are within normal limits (for reference, normal WENDY is >0.6). HISTORY: HTN, HLD, DM. PREVIOUS STUDIES: No previous studies for comparison. DISCLAIMER: The study images and the final report will be retained in the patient chart by the Vascular Laboratory for the legally required time period. This chart constitutes the legal record of any testing performed. ATTESTATION: I have reviewed and interpreted the pertinent images and measurements of this study. I attest to the conclusions in the final report that is provided above. Electronically Signed By: Drew Peres MD [facility] [phone] 03/26/2025 5:34:57 AM CDT Procedure Note Drew Peres MD - 03/26/2025 [facility] - Department of Vascular Surgery,Vascular Laboratory [address] [place] [address] Lower Extremity Arterial Doppler Report Patient Name: KENDY LOMELI : 1975 Study Date: 03/25/2025 2:07:00 PM Gender: F Tech: Dilcia Rojas [facility],T Location: [facility] Ref Provider: RAMON CHANEY Quality: Adequate Order Provider: RAMON CHANEY PROCEDURES: Arterial Report: Bilateral lower extremity arterial Doppler exam at rest. INDICATIONS: claudication Dx: Claudication [I73.9 (ICD-10-CM)] I73.9 Peripheral vascular disease, unspecified. MEASUREMENTS: Right Value Units Left Value Units Rt Brachial Pressure 143 mmHg Lt ICE CREAM SCOOPER Pressure 144 mmHg Rt ICE CREAM SCOOPER Pressure 138 mmHg Lt DPA Pressure 146 mmHg Rt DPA Pressure 139 mmHg Lt 1st Digit Pressure 91 mmHg Rt 1st Digit Pressure 106 mmHg Lt PT BIANCA Resting 1.01 Rt PT BIANCA Resting 0.97 Lt AT BIANCA Resting 1.02 Rt AT BIANCA Resting 0.97 Lt Digit/Arm Index 0.64 Rt Digit/Arm Index 0.74 Right Value Units Left Value Units FINDINGS: Performing Linux Programmer: Dilcia Mock RDMS, RVT. Bilateral All Levels : The bilateral common femoral, popliteal, posterior tibial and anteriortibial artery waveforms are multiphasic. Right Digits: Normal right digit pressure and waveform. Left Digits: Normal left digit pressure and waveform. Comments: Left brachial BP deferred due to patients request. CONCLUSIONS: 1. The above listed Ankle/Brachial Indices at rest are within normallimits bilaterally (for reference, normal resting BIANCA is 0.9 to 1.4; BIANCA >1.4 due tonon- compressible arteries is not diagnostic). 2. Bilateral Digit/Arm Indices are within normal limits (for reference,normal WENDY is >0.6). HISTORY: HTN, HLD, DM. PREVIOUS STUDIES: No previous studies for comparison. DISCLAIMER: The study images and the final report will be retained in the patientchart by the Vascular Laboratory for the legally required time period. This chartconstitutes the legal record of any testing performed. ATTESTATION: I have reviewed and interpreted the pertinent images and measurements ofthis study. I attest to the conclusions in the final report that is provided above. Electronically Signed By: Drew Peres MD [facility] [phone] 03/26/2025 5:34:57 AM CDT us Ramon Chaney MD IM US PROCEDURES Final Resul t * (ABNORMAL) POCT hemoglobin A1c (03/18/2025 3:22 PM CDT) Hemoglobin A1C, POC 8.3(A) 4.0 - 5.6 % Blood 03/18/2025 3:[address] POINT OF CARE TEST ORDER JANEE Final Result * Tacrolimus, Highly Sensitive, LC/MS/MS (03/16/2025 8:07 AM CDT) Tacrolimus, Highly Sensitive, LC/MS/MS 6.1 mcg/L [facility] Comment: No definitive therapeutic or toxic ranges have been established. Optimal blood drug levels are influenced by type of transplant, patient response, time post- transplant, co-administration of other drugs, and drug formulation. The following trough range is a suggested guideline: 5.0-20.0 mcg/L. 03/16/2025 8:07 AM CDT 03/16/2025 8:07 AM CDT Narrative [facility] - 03/17/2025 4:30 PM CDT PAE Jose Rafael Ramos MD LAB BLOOD ORDERABL ES Final Result Performing Organization Address City/[facility]/ZIP Co de Phone Number [facility] [address] [place] [address] * COPY(IES) SENT TO: (03/16/2025 8:07 AM CDT) COPY(IES) SENT TO: [facility] Comment: [facility] KIDNEY - COPY TO [facility] [address] [place] [address] 03/16/2025 8:07 AM CDT 03/16/2025 8:07 AM CDT Narrative [facility] - 03/17/2025 4:30 PM CDT PAE Jose Rafael Ramos MD LAB BLOOD ORDERABL ES Final Result [facility] * (ABNORMAL) CBC with auto differential (03/16/2025 8:07 AM CDT) WBC 7.9 3.8 - 10.8 Thousand/u L [facility] RBC, POC 3.86 3.80 - 5.10 Million/uL [facility] Hgb 12.9 11.7 - 15.5 g/dL [facility] Hct 40.8 35.0 - 45.0 % [facility] MCV 105.7(H) 80.0 - 100.0 fL [facility] MCH 33.4(H) 27.0 - 33.0 pg [facility] MCHC 31.6(L) 32.0 - 36.0 g/dL [facility] Comment: For adults, a slight decrease in the calculated MCHC value (in the range of 30 to 32 g/dL) is most likely not clinically significant; however, it should be interpreted with caution in correlation with other red cell parameters and the patient's clinical condition. Rdw 13.6 11.0 - 15.0 % [facility] Platelets 153 140 - 400 Thousand/u L [facility] MPV 10.6 7.5 - 12.5 fL [facility] Neutrophils, abs 4,021 1,500 - 7,800 cells/uL [facility] Lymphocytes, abs 3,215 850 - 3,900 cells/uL [facility] Monocyte abs 490 200 - 950 cells/uL [facility] Eosinophils, abs 142 15 - 500 cells/uL [facility] Basophils, abs 32 0 - 200 cells/uL [facility] Neutrophils 50.9 % [facility] Lymphocyte pct 40.7 % [facility] Monocytes 6.2 % [facility] Eosinophils 1.8 % [facility] Basophils 0.4 % [facility] 03/16/2025 8:07 AM CDT 03/16/2025 8:07 AM CDT Narrative [facility] - 03/17/2025 4:30 PM CDT PAE us Jose Rafael Ramos MD LAB BLOOD ORDERABL ES Final Result [facility] [address] [place] [phone] * (ABNORMAL) Renal function panel (03/16/2025 8:07 AM CDT) Pathologist [facility] Glucose 222(H) 65 - 99 mg/dL [facility] Comment: Fasting reference interval For someone without known diabetes, a glucose value >125 mg/dL indicates that they may have diabetes and this should be confirmed with a follow-up test. BUN 26(H) 7 - 25 mg/dL [facility] Creatinine 1.17(H) 0.50 - 1.03 mg/dL [facility] eGFR 56(L) > OR = 60 mL/min/1.7 3m2 [facility] BUN/creat ratio 22 6 - 22 (calc) [facility] Sodium 139 135 - 146 mmol/L [facility] Potassium, pl 4.1 3.5 - 5.3 mmol/L [facility] Chloride 100 98 - 110 mmol/L [facility] CO2 35(H) 20 - 32 mmol/L [facility] Calcium 9.0 8.6 - 10.4 mg/dL [facility] Phosphorus, sr 3.4 2.5 - 4.5 mg/dL [facility] Albumin 4.0 3.6 - 5.1 g/dL [facility] 03/16/2025 8:07 AM CDT 03/16/2025 8:07 AM CDT Narrative [facility] - 03/17/2025 4:30 PM CDT PAE us Jose Rafael Ramos MD LAB BLOOD ORDERABL ES Final Result [facility] [employer] [address] [place] [phone] * (ABNORMAL) Tacrolimus, Highly Sensitive, LC/MS/MS (01/19/2025 8:13 AM CDT) [facility] Tacrolimus, Highly Sensitive, LC/MS/MS 4.7(L) mcg/L [facility] Comment: No definitive therapeutic or toxic ranges have been established. Optimal blood drug levels are influenced by type of transplant, patient response, time post- transplant, co-administration of other drugs, and drug formulation. The following trough range is a suggested guideline: 5.0-20.0 mcg/L. 01/19/2025 8:13 AM CDT 01/19/2025 8:13 AM CDT Narrative [facility] - 01/20/2025 3:59 PM CDT PAE Jose Rafael Ramos MD LAB BLOOD ORDERABL ES Final Result Performing Organization Address City/[facility]/ZIP Co de Phone Number [facility] [address] [place] [address] * COPY(IES) SENT TO: (01/19/2025 8:13 AM CDT) COPY(IES) SENT TO: [facility] Comment: [facility] KIDNEY - COPY TO [facility] [address] [place] [address] 01/19/2025 8:13 AM CDT 01/19/2025 8:13 AM CDT Narrative [facility] - 01/20/2025 3:59 PM CDT PAE Jose Rafael Ramos MD LAB BLOOD ORDERABL ES Final Result [facility] * (ABNORMAL) CBC with auto differential (01/19/2025 8:13 AM CDT) WBC 7.8 3.8 - 10.8 Thousand/u L [facility] RBC, POC 4.42 3.80 - 5.10 Million/uL [facility] Hgb 14.8 11.7 - 15.5 g/dL [facility] Hct 45.8(H) 35.0 - 45.0 % [facility] MCV 103.6(H) 80.0 - 100.0 fL [facility] MCH 33.5(H) 27.0 - 33.0 pg [facility] MCHC 32.3 32.0 - 36.0 g/dL [facility] Comment: For adults, a slight decrease in the calculated MCHC value (in the range of 30 to 32 g/dL) is most likely not clinically significant; however, it should be interpreted with caution in correlation with other red cell parameters and the patient's clinical condition. Rdw 13.1 11.0 - 15.0 % [facility] Platelets 180 140 - 400 Thousand/u L [facility] MPV 11.1 7.5 - 12.5 fL [facility] Neutrophils, abs 3,838 1,500 - 7,800 cells/uL [facility] Lymphocytes, abs 3,167 850 - 3,900 cells/uL [facility] Monocyte abs 538 200 - 950 cells/uL [facility] Eosinophils, abs 211 15 - 500 cells/uL [facility] Basophils, abs 47 0 - 200 cells/uL [facility] Neutrophils 49.2 % [facility] Lymphocyte pct 40.6 % [facility] Monocytes 6.9 % [facility] Eosinophils 2.7 % [facility] Basophils 0.6 % [facility] 01/19/2025 8:13 AM CDT 01/19/2025 8:13 AM CDT Narrative [facility] - 01/20/2025 3:59 PM CDT PAE us Jose Rafael Ramos MD LAB BLOOD ORDERABL ES Final Result [facility] [address] [place] [phone] * (ABNORMAL) Renal function panel (01/19/2025 8:13 AM CDT) Pathologist [facility] Glucose 182(H) 65 - 99 mg/dL [facility] Comment: Fasting reference interval For someone without known diabetes, a glucose value >125 mg/dL indicates that they may have diabetes and this should be confirmed with a follow-up test. BUN 24 7 - 25 mg/dL [facility] Creatinine 1.07(H) 0.50 - 1.03 mg/dL [facility] eGFR 63 > OR = 60 mL/min/1.7 3m2 [facility] BUN/creat ratio 22 6 - 22 (calc) [facility] Sodium 138 135 - 146 mmol/L [facility] Potassium, pl 4.2 3.5 - 5.3 mmol/L [facility] Chloride 99 98 - 110 mmol/L [facility] CO2 34(H) 20 - 32 mmol/L [facility] Calcium 9.3 8.6 - 10.4 mg/dL [facility] Phosphorus, sr 3.5 2.5 - 4.5 mg/dL [facility] Albumin 4.0 3.6 - 5.1 g/dL [facility] 01/19/2025 8:13 AM CDT 01/19/2025 8:13 AM CDT Narrative [facility] - 01/20/2025 3:59 PM CDT PAE us Jose Rafael Ramos MD LAB BLOOD ORDERABL ES Final Result [facility] [address] [place] [address] * Albumin Creatinine Ratio, Urine (07/14/2024 8:26 AM RESTAURANT HOURLY MANAGER) Creatinine, ur 95 20 - 275 mg/dL [...] a diagnostic category. Urine 07/14/2024 8:26 AM RESTAURANT HOURLY MANAGER 07/14/2024 8:26 AM RESTAURANT HOURLY MANAGER Drew Godoy MD LAB URINE ORDERABLES Final Res ult Performing Organization Address City/[facility]/ZIP Co de Phone Number [facility] [address] [place] [phone] * (ABNORMAL) Lipid panel (05/26/2024) SCRIBED Cholesterol, Total 164 140 - 199 TXP NO LA B FOUND SCRIBED HDL 59 40 TXP NO L AB FOUND SCRIBED LDL 67 0 - 130 TXP NO L AB FOUND SCRIBED Triglycerides 192(A) 0 - 150 TXP NO LAB FOUND Blood 05/26/2024 Historical Provider LAB BLOOD ORDERABLES Delmi l Result Performing Organization Address [facility] Co de Phone Number TXP NO LAB FOUND * Diabetic Eye Exam (10/28/2023 2:27 PM CDT) Historical Provider HEALTH MAINTENANCE Final Result * COLONOSCOPY (05/08/2022 12:35 PM CDT) Anatomical Region Laterality Modality Other Narrative Procedure Note Cricket Santamaria MD - 05/08/2022 12:35 PM CDT [facility] Patient Name: Kendy Lomeli Procedure Date: 05/08/2022 12:35PM Date of : 1975 Admit Type: Outpatient Age: 47 Gender: Female Attending MD: Cricket Santamaria M.D. Room: [facility] ENDOSCOPY ROOM 8 Note Status: Finalized Procedure: Colonoscopy Indications: Screening for colorectal malignant neoplasm. Inadequate preparation for screening colonoscopy yesterday. Referring MD: Ramon Chaney M.D. Providers: Cricket Santamarai M.D. Medicines: Monitored Anesthesia Care Complications: No [...] The scope was passed under direct vision.The [id number] endoscope was introduced through the anus and advanced to the cecum, identified by appendiceal orifice and ileocecal valve. The colonoscopy was performed without difficulty. The patient tolerated the procedure well. The qualityof the bowel preparation was evaluated using the BBPS ([place] Bowel Preparation Scale) with scores of:Right Colon [...] following this procedure please call my office [phone]). After hours and eveningsplease call [phone] and speak to the GI fellow augustin. [...] 10/26/2020 8:15 AM CDT Performed at: - [address] [id number] Benefits Processor: Jean-Claude Snider PhD, Phone: [phone] Ramon Chaney MD LAB BLOOD ORDERABLES Final Re sult [facility] - 01 * Hepatitis C (HCV) RNA PCR, quantitative (03/02/2020 4:44 PM CDT) [facility] HCV RNA result Not Detected [facility] [place] Comment: Interpretive data: The quantifiable range of this assay is 15 IU/mL to 100,000,000 IU/mL (1.18 log IU/mL to 8.00 log IU/mL). Testing was performed by the KARLY AmpliPrep/KARYL TaqMan HCV Test version 2.0 ([employer] Testing performed at [facility] Current Interpretive Data was last revised on 2015. Blood specimen (specimen) 03/02/2020 4:44 PM CDT 03/02/2020 5:00 PM CDT Malcolm Mann MD LAB MICROBIOLOGY - GENERA L ORDERABLES Final Result [facility] [place] [address] from Last 3 Months or Most Recently Relevant to Health Maintenance Insurance [facility] MEDICARE ADVANTAGE [facility] MEDICARE [facility] Address: [address] [address] [place], [place] [id number] [facility] [id number] [place] [address] MEDICARE ADVANTAGE [facility] MEDICARE ADVANTAGE Advance Directives For more information, please contact: [phone] * Full Code (Latest Code Status on [...] 11:12 AM 05/08/2022 5:48 PM Care Teams Manager Nuclear Relationship Specialty Start Date End Date Ramon Chaney MD PCP - General 08/31/16 Burak Blue MD Consulting Physician Nephrology 04/21/18 Juana Jimenez, RN Garment Fitter 03/09/19 Sylwia García MD Referring Physician Endocrinology Diabetes & Metabolism 03/21/20 Igor Yeager DO Consulting Physician Urology 04/27/20 Cristina Boyer, RN [address] [phone] Secondary Kidney Coordinator Transplant 08/25/20 Cyn Fang NP [address] [id number] Nurse Practitioner Nurse Practitioner 12/06/21 Gavi Cervantes NP 4921 [facility] ENDOCR[facility]OLOGY, [facility] [address] [place], [place] [id number] Nurse Practitioner Family Medicine 01/06/25
[2025-04-11 13:39] VITALS: BP 152/78; PULSE 89; RESP 18; TEMP 36.6; O2SAT 100
--- NOTE | 2025-04-11 14:26 | ED.NAVMDI ---
HPI - Nausea/Vomiting/Diarrhea General Chief complaint: Nausea/Vomiting/Diarrhea Stated complaint: Vomiting/Diarrhea, BGL 281 Time Seen by Provider: 04/11/25 14:04 Source: patient and old records reviewed Mode of arrival: ambulatory Limitations: no limitations History of Present Illness HPI Narrative: Patient is a 50 y/o female, with PMH of renal transplant 2019-followed at [facility], pancreatic insufficiency, IDDM, diabetic gastroparesis, who presents to the ED with c/o lower abd pain, N/V. Patient reports having persistent nausea, vomiting, diarrhea, lower abdominal pain since around 8:00 a.m. this morning. She states this feels similar to her previous episodes of pancreatitis. States she is unable to keep down any food or drink. Reports fever 101 0.2 degree F today. She did not take anything for this. Denies sick contacts. Related Data Home Medications ?Medication ?Instructions ?Recorded ?Confirmed ?Last Taken ?Type aspirin 81 mg tablet,delayed 81 mg PO DAILY 08/30/20 12/13/24 12/10/24 History release (Adult Aspirin Regimen) azathioprine 50 mg tablet 50 mg PO DAILY 08/30/20 12/13/24 12/10/24 History omeprazole 20 mg capsule,delayed 20 mg PO DAILY 08/30/20 12/13/24 12/10/24 History release zolpidem 10 mg tablet (Ambien) 10 mg PO HS 08/30/20 12/13/24 12/12/24 History atorvastatin 20 mg tablet 20 mg PO DAILY 12/22/23 12/13/24 12/10/24 History cholecalciferol (vitamin D3) 50 50 mcg PO DAILY 12/22/23 12/13/24 12/10/24 History mcg (2,000 unit) tablet (Vitamin D3) cyanocobalamin (vitamin B-12) 500 1,000 mcg PO DAILY 12/22/23 12/13/24 12/10/24 History mcg tablet epinephrine 0.3 mg/0.3 mL 0.3 mg IM Q5-15M PRN Anaphylaxis 12/22/23 12/13/24 Unknown History injection, auto-injector flash glucose sensor (FreeStyle 12/22/23 12/13/24 Unknown History Lynda 14 Day Sensor kit) fluticasone furoate 100 1 inh inhalation DAILY 12/22/23 12/13/24 08/06/24 09:00 History mcg-vilanterol 25 mcg/dose 1 inh inhalation powder (Breo Ellipta) gabapentin 100 mg capsule 100 mg PO TID 12/22/23 12/13/24 12/10/24 History insulin glargine U-300 conc 300 24 unit subcut DAILY 12/22/23 12/13/24 12/13/24 History unit/mL (1.5 mL) subcutaneous pen (Rigoberto SolChristina U-300 Insulin) montelukast 10 mg tablet 10 mg PO DAILY 12/22/23 12/13/24 12/10/24 History pen needle, diabetic 31 gauge x 12/22/23 12/13/24 Unknown History 10/11 (BD Ultra-Fine Mini Pen Needle) sertraline 50 mg tablet 50 mg PO DAILY 12/22/23 12/13/24 12/10/24 History tramadol 50 mg tablet 100 mg PO Q6H PRN Pain 12/22/23 12/13/24 12/10/24 History alprazolam 0.5 mg tablet 0.5 mg PO TID PRN Anxiety 01/10/24 12/13/24 12/10/24 History carvedilol 6.25 mg tablet (Coreg) 6.25 mg PO DAILY 01/10/24 12/13/24 12/10/24 History divalproex 500 mg tablet,delayed 500 mg PO TID 01/10/24 12/13/24 12/03/24 History release prednisone 5 mg tablet 5 mg PO DAILY 01/10/24 12/13/24 12/10/24 History tacrolimus 1 mg tablet,extended 3 mg PO DAILY 01/10/24 12/13/24 12/10/24 History release 24 hr (Envarsus XR) timolol maleate 0.5 % eye drops 2 drp EACH EYE BID 01/10/24 12/13/24 12/12/24 History fluticasone propionate 50 2 spray intranasal BID PRN RHINITIS 04/13/24 12/13/24 08/06/24 09:00 History mcg/actuation nasal 1 spray spray,suspension glucagon 3 mg/actuation nasal 3 mg intranasal PRN PRN 04/13/24 12/13/24 08/01/24 12:00 History spray (Baqsimi) Hypoglycemia 3 mg insulin lispro 100 unit/mL See Rx Instructions .Route .COMPLEX 04/13/24 12/13/24 12/13/24 History subcutaneous half-unit pen furosemide 20 mg tablet (Lasix) 20 mg PO DAILY 08/08/24 12/13/24 12/10/24 History Allergies Allergy/AdvReac Type Severity Reaction Status Date / Time cyclobenzaprine Allergy Unknown Hives / Verified 04/11/25 13:24 Red Face metformin AdvReac Intermediate Vomiting Verified 04/11/25 13:24 tetracycline AdvReac Unknown Nausea and Verified 04/11/25 13:24 Vomiting acetaminophen (From Tylenol) AdvReac Nausea and Verified 04/11/25 13:24 Vomiting morphine AdvReac Itching Verified 04/11/25 13:24 Review of Systems Review of Systems: All systems reviewed & are unremarkable except as noted in HPI. All systems reviewed & are unremarkable except as noted in HPI and below PMFSH Past Medical History Medical History UTI (urinary tract infection) Post-menopausal Pancreatic insufficiency Hypertension MRSA infection Chronic obstructive pulmonary disease Diabetic nephropathy Type 1 diabetes mellitus Diabetic gastroparesis Surgical History Surgical History History of right nephrectomy Secondary to suspicious mass which turned out to be noncancerous. History of benign breast biopsy History of hysterectomy History of appendectomy (02/2019) History of kidney transplant (02/2019) Yumiko Family History Family History Grandparent Diabetes mellitus Emphysema of lung Mother and grandparent Grandparent Hypertension Mother Lupus Social History Social History Social History: Surrogate medical decision maker: Aleja Mcghee, mother. Code status: Full code. Smoking packs per day: 1 Smoking cigarettes per day: 20.0 Years smoked: 10 Smoking pack-years: 10.00 Smoking status: Former smoker Tobacco type: cigarettes Second hand tobacco smoke exposure: No Smoking end date: 10/27/18 Alcohol intake: former Substance use: former Substance use type: marijuana Do You Feel Safe in your Home?: Yes Lack of Transportation: No Lack of Food: Never True Current Housing: I Have Housing Concerned About Future Housing: No Difficulty Paying Gas/Electric Bills: No Difficulty Paying for Meds: No Currently Unemployed: No Education: High School Diploma/GED Difficulty w/ Childcare or Family Care: No Spiritual care concerns: No Exam Narrative: GENERAL: Mildly ill appearing, well-nourished, non-toxic, in no acute distress. HEAD: Normocephalic, atraumatic. RESPIRATORY: Airway patent, respirations nonlabored. Clear to auscultation bilaterally, no rales, rhonchi, wheezing. CARDIOVASCULAR: Regular rate and rhythm without murmurs, rubs, or gallops. ABDOMINAL: Soft, diffuse tenderness throughout lower abdomen, nondistended. Normoactive BS. MUSCULOSKELETAL: Moves all extremities. No gross deformities. SKIN: Warm, dry, normal color. NEURO: A&O X3. Speech clear. Cranial nerves II-XII grossly intact. Steady gait. No ataxic movements. Slightly tremulous. PSYCHIATRIC: Appropriate mood and affect. Normal interaction. Course Vital Signs Vital signs: Vital Signs Temperature 97.8 F 04/11/25 13:39 Pulse Rate 89 04/11/25 13:39 Respiratory Rate 18 04/11/25 13:39 Blood Pressure 152/78 H 04/11/25 13:39 Pulse Oximetry 100 04/11/25 13:39 Oxygen Delivery Room Air 04/11/25 13:39 Temperature 97.8 F 04/11/25 13:39 Pulse Rate 90 04/11/25 16:50 Respiratory Rate 16 04/11/25 16:50 Blood Pressure 156/87 H 04/11/25 16:50 Pulse Oximetry 98 04/11/25 16:50 Oxygen Delivery Room Air 04/11/25 13:39 MDM - Nausea/Vomiting/Diarrhea MDM Narrative Medical decision making narrative: Patient presented to ED with nausea, vomiting, diarrhea, lower abdominal pain since this morning. Feels history is to similar previous episodes of pancreatitis. Vital signs are stable upon arrival. Patient mildly ill appearing. Laboratory studies without leukocytosis or anemia. CMP fairly unremarkable. Slight evidence of dehydration. Fluids ongoing. Creatinine stable at 1.05. This does appear slightly increased from previous records, but no DAREK. Blood sugar 172. No evidence of DKA. Normal anion gap. Normal LFTs and bilirubin. Lipase <10. UA is clear. UDS positive for cannabinoids. CT scan of abdomen/pelvis was obtained and showing evidence of gastritis, otherwise unremarkable. Patient given IV protonix, in addition to Discussed lab and imaging findings with patient. She is feeling much better on reeval. Able to tolerate PO intake. States she feels ready to be discharged at this time. She has GERD and nausea medication at home. Discussed further GI instructions. Recommended close follow-up with PCP for further evaluation. Given return precautions. Discharged in stable condition. Medical Records Attestation: I reviewed the patient's medical records. Lab Data Attestation: I reviewed the patient's lab results. 04/11/25 14:51 04/11/25 14:51 Labs: Lab Results 04/11/25 04/11/25 Range/Units 14:32 14:51 WBC 6.4 (4.5-10.0) K/mm3 RBC 4.05 L (4.2-5.4) M/mm3 Hgb 13.4 (12.0-15.0) g/dL Hct 40.7 (37.0-47.0) % MCV 100.5 H (80-100) fl MCH 33.1 (26-34) pg MCHC 32.9 (32-36) g/dl RDW 13.4 (11.5-14.5) % Plt Count 145 L (150-375) k/mm3 MPV 9.8 (7.4-10.4) fl Immature Gran % (Auto) 0.3 (0-0.5) % Neut % (Auto) 56.3 (45.5-73.1) % Lymph % (Auto) 30.1 (18.3-44.2) % [place] % (Auto) 8.3 (2.6-8.5) % Eos % (Auto) 4.4 (0-4.4) % Baso % (Auto) 0.6 (0.2-1.2) % Lymph # (Auto) 1.91 (0.9-3.2) K/mm3 [place] # (Auto) 0.5 (0.1-0.6) K/mm3 Eos # (Auto) 0.3 (0-0.3) K/mm3 Baso # (Auto) 0.0 (0.0-0.1) K/mm3 Abs Immat Gran (auto) 0.02 (0.00-0.031) K/mm3 Absolute Neuts (auto) 3.6 (1.3-6.7) K/mm3 Absolute Nucleated RBC 0.000 (0.0-0.012) K/mm3 Nucleated RBC % 0.0 (0.0-0.2) % Sodium 137 (137-145) mmol/L Potassium 3.4 (3.4-5.0) mmol/L Chloride 98 (98-107) mmol/L Carbon Dioxide 33 H (22-30) mmol/L Anion Gap 6 (4-12) mmol/L BUN 19 H (7-17) mg/dL Creatinine 1.05 H (0.7-1.0) mg/dL Estim Creat Clear Calc 51 ml/min Estimated GFR 55 L (59 - ) Glucose 172 H (65-110) mg/dL Calcium 9.7 (8.4-10.2) mg/dL Total Bilirubin 0.6 (0.2-1.3) mg/dL AST 24 (14-36) U/L ALT 12 (6-35) U/L Alkaline Phosphatase 55 (38-126) U/L Total Protein 8.1 (6.3-8.2) g/dL Albumin 4.1 (3.5-5.1) g/dL Lipase < 10 L (23-300) U/L Urine Color Yellow (Yellow) Urine Appearance Clear (Clear) Urine pH 8.5 (5.0-9.0) Ur Specific Savage 1.016 (1.001-1.035) Urine Protein Negative (Negative) mg/dL Urine Glucose (UA) Negative (Negative) mg/dL Urine Ketones Negative (Negative) mg/dL Ur Blood (Man) Negative (Negative) Urine Nitrate Negative (Negative) Urine Bilirubin Negative (Negative) Urine Urobilinogen 0.2 (<2.0) mg/dL Leukocyte Esterase Rfl Negative (Negative) SACHA/UL Urine Test Negative Urine Opiates Screen Negative (Negative) Urine Methadone Screen Negative (Negative) Ur Barbiturates Screen Negative (Negative) Ur Phencyclidine Scrn Negative (Negative) Ur Amphetamine Screen Negative (Negative) U Benzodiazepines Scrn Negative (Negative) Urine Cocaine Screen Negative (Negative) U Cannabinoids Screen Positive A (Negative) Imaging Data Attestation: I personally reviewed and interpreted this imaging study as follows: Radiologist's impression: ITS Impressions Abdomen/Pelvis CT 04/11/25 16:09 IMPRESSION: 1. Probable gastritis. Incidental findings above Discharge Plan Discharge Clinical Impression: Nausea & vomiting Qualifiers: Vomiting type: unspecified Qualified Code(s): R11.2 - Nausea with vomiting, unspecified Gastritis Qualifiers: Gastritis type: unspecified gastritis Chronicity: acute Gastritis bleeding: without bleeding Qualified Code(s): K29.00 - Acute gastritis without bleeding Patient Disposition: Home Condition: Stable Instructions: Antibiotic Form, Clear Liquid Diet (ED), Diet for Stomach Ulcers and Gastritis (ED), Gastroenteritis (ED), Acute Nausea and Vomiting (ED) Additional Instructions: Utilize your home nausea medicine as needed for further nausea. Increase fluid intake. Recommend electrolyte rich fluids, gatorade, pedialyte, body armour. Continue omeprazole for acid reflux. Limited foods are very greasy, spicy, fatty, acidic. Recommend clear liquids or bland diet until symptoms improve, such as bananas, rice, applesauce, toast, or crackers. Follow up with your primary care doctor for further evaluation. Return to the ED if you experience worsening or severe symptoms, unable to keep down food or drink, severe pain, fevers, rectal bleeding, vomiting blood, or any other symptoms of concern. Patient Language: Polish Prescriptions: No Action zolpidem [Ambien] 10 mg tablet 10 mg PO HS azathioprine 50 mg tablet 50 mg PO DAILY aspirin [Adult Aspirin Regimen] 81 mg tablet,delayed release (DR/EC) 81 mg PO DAILY omeprazole 20 mg capsule,delayed release(DR/EC) 20 mg PO DAILY atorvastatin 20 mg Tablet 20 mg PO DAILY cyanocobalamin (vitamin B-12) 500 mcg Tablet 1,000 mcg PO DAILY montelukast 10 mg Tablet 10 mg PO DAILY gabapentin 100 mg Capsule 100 mg PO TID epinephrine 0.3 mg/0.3 mL Auto-Injector 0.3 mg IM Q5-15M PRN (Reason: Anaphylaxis) Patient Comments: Hasn't taken in years Rx Instructions: do not exceed 3 doses per episode sertraline 50 mg Tablet 50 mg PO DAILY (DME) pen needle, diabetic [BD Ultra-Fine Mini Pen Needle] 31 gauge x 3/16 Needle MISCELLANEOUS fluticasone furoate-vilanterol [Breo Ellipta] 100-25 mcg/dose Blister With Device 1 inh INHALATION DAILY Rx Instructions: INHALE 1 PUFF BY MOUTH DAILY- RINSE MOUTH WITH WATER AFTER USE. DO NOT SWALLOW (DME) FreeStyle Lynda 14 Day Sensor Kit MISCELLANEOUS tramadol 50 mg Tablet 100 mg PO Q6H PRN (Reason: Pain) cholecalciferol (vitamin D3) [Vitamin D3] 50 mcg (2,000 unit) Tablet 50 mcg PO DAILY insulin glargine U-300 conc [Toujeo SoloStar U-300 Insulin] 300 unit/mL (1.5 mL) Insulin Pen 24 unit SUBCUT DAILY Rx Instructions: INJECT 28 UNITS UNDER SKIN ONCE DAILY. MAX OF 30 UNITS PER DAY prednisone 5 mg tablet 5 mg PO DAILY divalproex 500 mg tablet,delayed release (DR/EC) 500 mg PO TID alprazolam 0.5 mg tablet 0.5 mg PO TID PRN (Reason: Anxiety) timolol maleate 0.5 % drops 2 drp EACH EYE BID Envarsus XR 1 mg tablet extended release 24 hr 3 mg PO DAILY Rx Instructions: TAKE 3 1MG TABLETS BY MOUTH IN THE ASSISTANT CONSTRUCTION SUPERINTENDENT BEFORE BREAKFAST. carvedilol [Coreg] 6.25 mg tablet 6.25 mg PO DAILY Baqsimi 3 mg/actuation spray,non-aerosol 3 mg INTRANASAL PRN PRN (Reason: Hypoglycemia) fluticasone propionate 50 mcg/actuation [place],Suspension 2 spray INTRANASAL BID PRN (Reason: RHINITIS) Rx Instructions: administer 2 sprays into each nostril 2 times a day as needed for rhinits insulin lispro 100 unit/mL insulin pen, half-unit See Rx Instructions .ROUTE .COMPLEX Rx Instructions: 1:13 carb ratio with breakfast, 1:15 carb ratio with lunch and 1:13 carb ratio with supper plus sliding scale 1 unit for every 50 points greater than 150; MDD is 30 units furosemide [Lasix] 20 mg tablet 20 mg PO DAILY ondansetron 4 mg tablet,disintegrating 4 mg PO Q6H PRN (Reason: nausea and vomiting) Qty: 10 0RF ertapenem 1 gram recon soln 1 g IV Q24H Qty: 4 0RF oxycodone-acetaminophen 5-325 mg Tablet 1 tablet PO Q4H PRN (Reason: Pain Rated 7-10) Qty: 10 0RF Saccharomyces boulardii [Florastor] 250 mg Capsule 250 mg PO BID Qty: 14 0RF levetiracetam [Keppra] 500 mg Tablet 500 mg PO Q12HR Qty: 10 0RF Zenpep 60,000-189,600- 252,600 unit capsule,delayed release(DR/EC) 1 cap PO .ac Qty: 300 4RF Rx Instructions: administer with meals and/or snacks mirtazapine 15 mg tablet See Rx Instructions .ROUTE .COMPLEX Qty: 90 1RF Dose Instruction: TAKE 1 TABLET BY MOUTH AT BEDTIME. Rx Instructions: TAKE 1 TABLET BY MOUTH AT BEDTIME. Follow-up/Referrals: Nga,Ramon Cedeno MD [Primary Care Provider] Time of Disposition: 17:43
[2025-04-11 14:39] LABS: Add Urine Microscopic? NO; Appearance Urine Clear (Clear); Glucose Urine UA Negative (Negative); Leukocyte Esterase Ur Negative LEU/UL (Negative); Nitrate Urine Negative (Negative); Specific Grav Ur 1.016 (1.001-1.035)
[2025-04-11 14:56] LABS: Hematocrit 40.7 % (37.0-47.0); Hemoglobin 13.4 g/dL (12.0-15.0); Immature Granulocyte Percent A 0.3 % (0-0.5); Lymphocytes Absolute Auto 1.91 K/mm3 (0.9-3.2); Mean Corpuscular HGB Conc 32.9 g/dl (32-36); Mean Corpuscular Hemoglobin 33.1 pg (26-34); Mean Corpuscular Volume 100.5 fl (80-100); Nucleated Red Blood Cells Absolute Auto 0.000 K/mm3 (0.0-0.012); Nucleated Red Blood Cells Perc 0.0 % (0.0-0.2); Platelet Count Result 145 k/mm3 (150-375); Red Blood Count 4.05 M/mm3 (4.2-5.4); White Blood Count 6.4 K/mm3 (4.5-10.0)
[2025-04-11 15:08] LABS: Alanine Aminotransferase 12 U/L (6-35); Albumin Level 4.1 g/dL (3.5-5.1); Alkaline Phosphatase 55 U/L (38-126); Anion Gap 6 mmol/L (4-12); Aspartate Amino Transferase 24 U/L (14-36); Bilirubin,Total 0.6 mg/dL (0.2-1.3); Blood Urea Nitrogen 19 mg/dL (7-17); Calcium 9.7 mg/dL (8.4-10.2); Carbon Dioxide 33 mmol/L (22-30); Chloride 98 mmol/L (98-107); Estimated CRCL calculation 51 ml/min; Estimated Glomerular Filt Rate 55; Glucose 172 mg/dL (65-110); Potassium 3.4 mmol/L (3.4-5.0); Sodium 137 mmol/L (137-145); Total Protein 8.1 g/dL (6.3-8.2)
[2025-04-11 15:16] LABS: Cannabinoid Screen Urine Positive (Negative)
[2025-04-11] MEDS: SODIUM CHLORIDE 0.9% IV 1,000 ML 999 ML IV CONT (15:20)
[2025-04-11] MEDS: ONDANSETRON INJ 4 MG/2 ML VIAL IV PUSH (15:20)
[2025-04-11] MEDS: HYDROmorphone HCL INJ (*CRX) 1 MG/ML SYR 0.5 MG IV PUSH (15:20)
[2025-04-11 15:30] VITALS: BP 168/99; PULSE 80; RESP 18; O2SAT 98
[2025-04-11 15:31] LABS: Pregnancy On Board Control Positive
[2025-04-11 15:38] LABS: Lipase < 10 U/L (23-300)
--- NOTE | 2025-04-11 15:40 | PC.NURSE ---
lab called to add on urine preg test
[2025-04-11 16:50] VITALS: BP 156/87; PULSE 90; RESP 16; O2SAT 98
[2025-04-11] MEDS: PANTOPRAZOLE SODIUM IV 40 MG VIAL IV PUSH (16:50)
--- NOTE | 2025-04-11 17:31 | PC.NURSE ---
Pt. tolerated food intake with no issues. Pt. states I'm ready to go. MANUELITO Lizarraga notified.
[2025-04-11 17:45] VITALS: BP 152/72; PULSE 95; RESP 16; O2SAT 98
== END 2025-04-11 18:07 | disposition home or self-care (01) ==
PROVIDERS: Emergency Medicine; Emergency Provider Physician Assistant; PCP Internal Medicine
DX: R11.2 Nausea with vomiting, unspecified (principal); K29.00 Acute gastritis without bleeding; Z87.440 Personal history of urinary (tract) infections; I10 Essential (primary) hypertension; J44.9 Chronic obstructive pulmonary disease, unspecified; E10.21 Type 1 diabetes mellitus with diabetic nephropathy; Z79.4 Long term (current) use of insulin
CPT/HCPCS: 36415; 74177; 80053; 80307; 81003; 81025; 83690; 85025; 96361; 96374; 96375; 99284; J1171; J2405; J2470; J7030; Q9967

== ENCOUNTER 2025-05-27 13:45 | Observation (INO) | payer MEDICARE, MEDICAID, SELFPAY ==
[2025-05-27] VITALS (8 sets, daily range): BP systolic 96–185; BP diastolic 57–105; PULSE 97–108; RESP 12–20; TEMP 36.6–37.2; O2SAT 96–100; BMI 26.6
--- NOTE | ~2025-05-27 | CT_ITS ---
CT abdomen pelvis w con INDICATION:ABDOMINAL PAIN . COMPARISON: None. TECHNIQUE: Axial images of the abdomen and pelvis were obtained following infusion of 100 mL Isovue 300. Dose optimization technique was utilized. FINDINGS: Small hiatal hernia with reflux is noted. The lung bases are clear. The liver parenchyma is unremarkable. No intrahepatic mass or ductal dilatation is evident. The gallbladder is unremarkable. The pancreas and spleen are normal in appearance. The adrenal glands are symmetric in size. Right kidney is absent. There is mild atrophy of the left kidney. There is a right pelvic kidney. No cystic mass is evident. There is no solid mass. There is no hydronephrosis. There is diffuse thickening of the gastric wall may be due to under distention versus gastritis. There are no small bowel obstruction. The appendix is not visualized however no secondary signs of appendicitis are identified. The bladder and rectum are normal. No free intraperitoneal fluid or air is evident. There is no significant retroperitoneal lymphadenopathy. The aorta, visceral vessels and renal arteries demonstrate normal caliber and patency. The lower thoracic and lumbar vertebrae are in normal alignment. IMPRESSION: No acute abnormality is noted in the abdomen and pelvis. Small hiatal hernia with reflux. Thickening of the gastric wall may be either due to under distention versus gastritis. Right pelvic kidney is unremarkable. Right kidney is absent. Left kidney is atrophied. All CT scans at this facility are performed using low dose modulation techniques as appropriate to perform exam including the following: automated exposure control; use of iterative reconstruction technique; adjustment of the mA and/or kV according to patient size (this includes techniques or standardized protocols for targeted exams where dose is matched to indication/reason for exam). Reviewed, dictated and finalized at location S. IMPRESSION: No acute abnormality is noted in the abdomen and pelvis. Small hiatal hernia with reflux. Thickening of the gastric wall may be either due to under distention versus gas tritis. Right pelvic kidney is unremarkable. Right kidney is absent. Left kidney is atr ophied. All CT scans at this facility are performed using low dose modulation techniqu es as appropriate to perform exam including the following: automated exposure c ontrol; use of iterative reconstruction technique; adjustment of the mA and/or kV according to patient size (this includes techniques or standardized protocol s for targeted exams where dose is matched to indication/reason for exam).
--- OUTSIDE RECORDS SUMMARY | 2025-05-27 14:17 | XMS_ITS | Clinical Summary ---
Author Organization [facility] Address [address] [place] [address] Care Team Providers Care Pest Control Operator Name Role Phone Ramon Sylvester MD Primary Care Provider [phone] Ramon Sylvester MD Unavailable [phone] Source Comments [facility],non-owned Affiliates and Associated Physician Practices is amultiple site organization consisting of ambulatory clinics and hospital sitesin [place], [place], [place] and [place]. This disclosure is being madepursuant to the Care Everywhere program and may not contain all information available regarding this patient. Last updated 18.[facility] Allergies Active Allergy Reactions Criticality Noted [...] MCG/ACT nasal sprayIndicatio ns:Nasal Signs and Symptoms Lamona 2 Sprays into each nostril once daily [...] age to complete this topic Insurance MEDICARE [facility] Care Teams Pest Control Operator Relationship Specialty Start Date End Date Ramon Sylvester MD PCP - General Internal Medicine 10/19/16 Ramon Sylvester MD Internal Medicine 10/19/16
--- OUTSIDE RECORDS SUMMARY | 2025-05-27 14:17 | XMS_ITS | Encounter Summary ---
Author Organization [facility] Address [address] [place] [address] Phone Care Team Providers Care Postal Service Clerk Name Role Phone Ramon Sylvester MD Primary Care Provider [phone] Burak Blue MD Unavailable [phone] Juana Jimenez RN Unavailable [phone] Sylwia García MD Unavailable Igor Yeager DO Unavailable [phone] Cristina Boyer RN Unavailable Cyn Fang NP Unavailable [phone] Gavi Cervantes NP Unavailable Encounter Details Date Type Department Care Team (Late st Contact Info) Description 05/26/2025 Orders Only [facility] Medicine Nephrology [address] [facility] Advanced Medicine 5th [place] [address] [place] [address] Jose Rafael Ramos MD [address] [place] [address] Social History Tobacco Use Types Packs/Day Years Used Date Smoking Tobacco: Former Cigarettes 2 008 - 10/2017 Smokeless Tobacco: Never Alcohol Use Standard Drinks/Week Comments No 0 (1 standard drink = 0.6 oz pur e alcohol) [facility] Utilities Answer Date Recorded In the [...] often do you attend chur ch or caodaism services? Patient unable to answer 11/28/2023 Do you belong to any clubs o r organizations such as confucianism groups, unions, fraternal or athletic groups, or [...] place to sleep or slept in a alf (including now)? Patient unable to answer 11/28/2023 Personal Safety Answer Date Recorded Have you ever been in or are you currently in a harmful physical or emotional relationship or is someone making you feel afraid or unsafe? 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 file Not on file Not on file documented as of this encounter Plan of Treatment Scheduled Procedures Name Priority Associated Diagnoses Date/Ti me TRANSPLANT KIDNEY ESRD (end stage renal disease) (HCC) documented as of this encounter Procedures Procedure Name Priority Date/Time Associated Diagnosis Comments COPY(IES) SENT TO: Routine 05/26/2025 8: 29 AM CDT HEPATIC FUNCTION PANEL, SERUM Routine 05/26/2025 8:29 AM CDT CBC WITH AUTO DIFFERENTIAL Routine 05/26/2025 8:29 AM CDT HEMOGLOBIN A1C Routine 05/26/2025 8:29 AM CDT RENAL FUNCTION PANEL Routine 05/26/2025 8:29 AM CDT LIPID PANEL Routine 05/26/2025 8:29 AM CDT documented in this encounter Results * (ABNORMAL) Renal function panel (05/26/2025 8:29 AM CDT) Glucose 178(H) 65 - 99 mg/dL [facility] Comment: Fasting reference interval For someone without known diabetes, a glucose value >125 mg/dL indicates that they may have diabetes and this should be confirmed with a follow-up test. BUN 18 7 - 25 mg/dL [facility] Creatinine 1.31(H) 0.50 - 1.03 mg/dL [facility] eGFR 49(L) > OR = 60 mL/min/1.7 3m2 [facility] BUN/creat ratio 14 6 - 22 (calc) [facility] Sodium 137 135 - 146 mmol/L [facility] Potassium, pl 3.4(L) 3.5 - 5.3 mmol/L [facility] Chloride 92(L) 98 - 110 mmol/L [facility] CO2 36(H) 20 - 32 mmol/L [facility] Calcium 9.6 8.6 - 10.4 mg/dL [facility] Phosphorus, sr 2.8 2.5 - 4.5 mg/dL [facility] Albumin 4.5 3.6 - 5.1 g/dL [facility] 05/26/2025 8:29 AM CDT 05/26/2025 8:29 AM CDT Narrative [facility] - 05/27/2025 3:50 AM CDT PAE FASTING:YES FASTING: YES us Jose Rafael Ramos MD LAB BLOOD ORDERABL ES Final Result [facility] [address] [address] [address] [address] * (ABNORMAL) Hepatic Function Panel, Serum (05/26/2025 8:29 AM CDT) Protein, sr 8.4(H) 6.1 - 8.1 g/dL [facility] Albumin 4.5 3.6 - 5.1 g/dL [facility] GLOBULIN 3.9(H) 1.9 - 3.7 g/dL (calc) [facility] Alb/glob ratio 1.2 1.0 - 2.5 (calc) [facility] Bilirubin, total 0.6 0.2 - 1.2 mg/dL [facility] Bilirubin, direct 0.1 < OR = 0.2 mg/dL [facility] Bilirubin, indirect 0.5 0.2 - 1.2 mg/dL (calc) [facility] Alk phos 41 37 - 153 U/L [facility] AST 12 10 - 35 U/L [facility] ALT (SGPT) 4(L) 6 - 29 U/L [facility] 05/26/2025 8:29 AM CDT 05/26/2025 8:29 AM CDT Narrative [facility] - 05/27/2025 3:50 AM CDT PAE FASTING:YES FASTING: YES [facility] Sesar Ramos MD LAB BLOOD ORDERABL ES Final Result [facility] [address] [place] [address] * (ABNORMAL) Lipid panel (05/26/2025 8:29 AM CDT) [facility] Cholesterol 167 <200 mg/dL [facility] HDL 55 > OR = 50 mg/dL [facility] Triglycerides 221(H) <150 mg/dL [facility] Comment: If a non-fasting specimen was collected, consider repeat triglyceride testing on a fasting specimen if clinically indicated. Aisha et al. J. of Clin. Lipidol. 2015;9:129-169. LDL 81 mg/dL (calc) [facility] Comment: Reference range: <100 Desirable range <100 mg/dL for primary prevention; <70 mg/dL for patients with CHD or diabetic patients with > or = 2 CHD risk factors. LDL-C is now calculated using the Von-Pollo calculation, which is a validated novel method providing better accuracy than the Friedewald equation in the estimation of LDL-C. Von SS et al. ELISA. 2013;310(19): 1713-0059 (http://education.NurseLiability.com.H2020/faq/RXD576) Chol/HDL ratio 3.0 <5.0 (calc) [facility] Non-HDL, (LDL+VLDL) 112 <130 mg/dL (calc) [facility] Comment: For patients with diabetes plus 1 major ASCVD risk factor, treating to a non-HDL-C goal of <100 mg/dL (LDL-C of <70 mg/dL) is considered a therapeutic option. 05/26/2025 8:29 AM CDT 05/26/2025 8:29 AM CDT Narrative [facility] - 05/27/2025 3:50 AM CDT PAE FASTING:YES FASTING: YES us Jose Rafael Ramos MD LAB BLOOD ORDERABL ES Final Result [facility] [address] [place] [address] * (ABNORMAL) CBC with auto differential (05/26/2025 8:29 AM CDT) WBC 6.2 3.8 - 10.8 Thousand/u L [facility] RBC, POC 4.10 3.80 - 5.10 Million/uL [facility] Hgb 14.2 11.7 - 15.5 g/dL [facility] Hct 43.2 35.0 - 45.0 % [facility] MCV 105.4(H) 80.0 - 100.0 fL [facility] MCH 34.6(H) 27.0 - 33.0 pg [facility] MCHC 32.9 32.0 - 36.0 g/dL [facility] Comment: For adults, a slight decrease in the calculated MCHC value (in the range of 30 to 32 g/dL) is most likely not clinically significant; however, it should be interpreted with caution in correlation with other red cell parameters and the patient's clinical condition. Rdw 13.6 11.0 - 15.0 % [facility] Platelets 159 140 - 400 Thousand/u L [facility] MPV 10.7 7.5 - 12.5 fL [facility] Neutrophils, abs 2,833 1,500 - 7,800 cells/uL [facility] Lymphocytes, abs 2,337 850 - 3,900 cells/uL [facility] Monocyte abs 508 200 - 950 cells/uL [facility] Eosinophils, abs 471 15 - 500 cells/uL [facility] Basophils, abs 50 0 - 200 cells/uL [facility] Neutrophils 45.7 % [facility] Lymphocyte pct 37.7 % [facility] Monocytes 8.2 % [facility] Eosinophils 7.6 % [facility] Basophils 0.8 % [facility] 05/26/2025 8:29 AM CDT 05/26/2025 8:29 AM CDT Narrative [facility] - 05/27/2025 2:36 AM CDT PAE FASTING:YES FASTING: YES Jose Rafael Ramos MD LAB BLOOD ORDERABL ES Final Result [facility] [address] [place] [address] * (ABNORMAL) Hemoglobin A1c (05/26/2025 8:29 AM CDT) Hgb A1C 6.6(H) <5.7 % of total Hgb [facility] Comment: For someone without known diabetes, a hemoglobin A1c value of 6.5% or greater indicates that they may have diabetes and this should be confirmed with a follow-up test. For someone with known diabetes, a value <7% indicates that their diabetes is well controlled and a value greater than or equal to 7% indicates suboptimal control. A1c targets should be individualized based on duration of diabetes, age, comorbid conditions, and other considerations. Currently, no consensus exists regarding use of hemoglobin A1c for diagnosis of diabetes for children. 05/26/2025 8:29 AM CDT 05/26/2025 8:29 AM CDT Narrative [facility] - 05/26/2025 4:59 PM CDT PAE FASTING:YES FASTING: YES Jose Rafael Ramos MD LAB BLOOD ORDERABL ES Final Result [facility] [address] [place] [address] * COPY(IES) SENT TO: (05/26/2025 8:29 AM CDT) COPY(IES) SENT TO: [facility] Comment: [facility] - COPY TO [facility] [address] [place] [address] 05/26/2025 8:29 AM CDT 05/26/2025 8:29 AM CDT Narrative [facility] - 05/27/2025 3:50 AM CDT PAE FASTING:YES FASTING: YES Jose Rafael Ramos MD LAB BLOOD ORDERABL ES Final Result [facility] documented in this encounter Visit Diagnoses Not on filedocumented in this encounter Care Teams Postal Service Clerk Relationship Specialty Start Date End Date Ramon Sylvester MD PCP - General 08/31/16 Burak Blue MD Consulting Physician Nephrology 04/21/18 Juana Jimenez RN Manufacturing Manager 03/09/19 Sylwia García MD Referring Physician Endocrinology Diabetes & Metabolism 03/21/20 Igor Yeager DO Consulting Physician Urology 04/27/20 Cristina Boyer, RN [address] [facility], [address] [id number] Secondary Kidney Coordinator Transplant 08/25/20 Cyn Fang NP [address] [facility], [address] [id number] Nurse Practitioner Nurse Practitioner 12/06/21 Gavi Cervantes NP [address] [facility], [facility] [address] [place], [place] [id number] Nurse Practitioner Family Medicine 01/06/25 documented as of this encounter
--- OUTSIDE RECORDS SUMMARY | 2025-05-27 14:17 | XMS_ITS ---
Author Organization [facility] Address [address] [place] [address] Care Team Providers Care Pallet Repairer Name Role Phone Ramon Sylvester MD Primary Care Provider Burak Blue MD Unavailable [phone] Juana Jimenez RN Unavailable Sylwia García MD Unavailable Igor Yeager DO Unavailable Cristina Boyer RN Unavailable Cyn Fang NP Unavailable Gavi Cervantes NP Unavailable Transplant Episode Kidney Recipient [facility] ([place], [place]) - [facility] Organ Received: Left Kidney Transplanted on 03/09/2019 Marked as Active Follow-up on 03/09/2019 Reason: Transplanted at [facility] Kidney CoordinatorJuana Jimenez RN Fax: N/A Email: N/A [place] Organ Diagnosis Organ Primary Contributory Kidney Diabetes [...] Fax Email Juana Jimenez RN Kidney Coordinator [phone] N/A N/A Cristina Boyer RN Secondary Coordinator Secondary Kidney Coordinator [phone] N/A N/A Burak Blue MD Referring Physician [phone] N/A Kristen Finley Primary Health Promoter N/A N/A N/A Jose De Jesus Barrios Secondary Health Promoter N/A N/A N/A Diane Salomon Burr Grinder [phone] N/A N/A Juana Jimenez bureau directorDirect Response Consultant [phone] N/A N/A Events Post-Transplant Pre-Transplant Admitted: 03/07/2019 Referred: 10/17/2017 Transplanted: 03/09/2019 Evaluation began: 8 Discharged: 03/12/2019 Committee: 12/08/2018 Center waitlisted: 9 Dialysis History Dialysis History Start End Type Comments Center 01/13/2018 03/09/2019 Peritoneal [facility] Information Center Phone Fax Address [facility] [phone] [address] [facility] [address]
--- OUTSIDE RECORDS SUMMARY | 2025-05-27 14:17 | XMS_ITS | Encounter Summary ---
Author Organization [facility] Address [address] [place] [address] Care Team Providers Care Business Area Manager Name Role Phone Ramon Sylvester MD Primary Care Provider [phone] Ramon Sylvester MD Unavailable [phone] Encounter Details Date Type Department Care Team (Late st Contact Info) Description 12/11/2017 [facility] Outpatient Visit [facility] [address] [place] [address] [place] [address] [address] Social History Tobacco Use Types [...] on filedocumented in this encounter Care Teams Business Area Manager Relationship Specialty Start Date End Date Ramon Sylvester MD PCP - General Internal Medicine 10/19/16 Ramon Sylvester MD Internal Medicine 10/19/16 documented as of this encounter
--- OUTSIDE RECORDS SUMMARY | 2025-05-27 14:17 | XMS_ITS ---
Author Organization [facility] Address [address] [place] [address] Care Team Providers Care Administrative Project Coordinator Name Role Phone Ramon Sylvester MD Primary Care Provider Burak Blue MD Unavailable [phone] Juana Jimenez RN Unavailable Sylwia García MD Unavailable Igor Yeager DO Unavailable Cristina Boyer RN Unavailable Cyn Fang NP Unavailable Gavi Cervantes NP Unavailable Active Problems Patient Care Coordination No te Formatting of this note migh t be different from the original. Lab: [facility]- [phone] Standing Orders q-monthly FK, q3-HgbA1C. Exp. 12/14/25 Home Health: [facility] Home Care Local Pharmacy:[facility] Specialty Pharmacy: [facility] Problem Noted Date Diagnosed Date Anxiety and depression 05/19/2025 Assessment & Plan (05/19/2025 12:58 PM CDT): Will increase sertraline to 100mg from 50mg Claudication 03/23/2025 Assessment & Plan (03/23/2025 3:38 PM CDT): Differential diagnosis includes vascular disease or pseudo claudication. Will increase gabapentin. Will also check peripheral arterial Doppler Pancreatic insufficiency 07/11/2024 Abnormal urinalysis/ UTI 11/26/2023 Assessment & Plan (11/29/2023 12:12 AM CDT): Reports experiencing burning sensation during urination and pain during urination for more than 2-3 months and has had multiple visit at [facility] in [place] with multiple abnormal urinalyses [...] home) Assessment & Plan (06/25/2023 3:24 PM CLAIMS VICE PRESIDENT): Continue Ambien Assessment & Plan (02/24/2023 2:03 AM CDT): Cont home ambien PRN, reduce 10mg -> 5mg Liver lesion, right lobe 10/06/2022 [facility] current use of insulin 06/07/2022 Prolonged Q-T [...] hypoglycemia Assessment & Plan (08/08/2021 3:28 PM CLAIMS VICE PRESIDENT): -Affects post meal glucose readings -Closely monitor [...] 3:25 PM CDT): S/p right nephrectomy of [place] right kidney. POD1 N/V and Abd pain. [...] glucoses. Assessment & Plan (06/07/2022 5:24 PM CLAIMS VICE PRESIDENT): This affects her ability to see a [...] Stable. Assessment & Plan (06/03/2023 5:34 AM CLAIMS VICE PRESIDENT): Previous history of smoking. - Continue home inhalers and singulair. Essential hypertension 11/15/2019 Assessment & Plan (11/17/2024 3:59 PM CDT): BP at target Assessment & Plan (06/03/2023 5:41 AM CLAIMS VICE PRESIDENT): Hold amlodipine for soft blood pressures. Assessment [...] Gastroesophageal reflux disease 11/15/2019 Assessment & Plan (05/19/2025 12:59 PM CDT): Will send famotidine 20mg BID Continue omeprazole 20mg daily Assessment & Plan (02/24/2023 2:02 AM CDT): Continue home PPI. Assessment & Plan (11/15/2019 11:10 AM CDT): Start protonix IV for possible gastritis. On omeprazole at home Hyperlipidemia 11/15/2019 Assessment & Plan (06/03/2023 5:43 AM CLAIMS VICE PRESIDENT): Continue home statin. Assessment & Plan (02/24/2023 2:01 AM CDT): Cont home atorva 20mg. Assessment & Plan (11/05/2022 9:21 AM CDT): On atorvastatin 20mg. Optimize glycemic control. 10/2022- TG 173, HDL 66, LDL 66 Assessment & Plan (06/07/2022 5:29 PM CLAIMS VICE PRESIDENT): Continue statin therapy (atorvastatin 20mg) and optimize [...] stable. Assessment & Plan (06/03/2023 5:34 AM CLAIMS VICE PRESIDENT): - Continue home sertraline, nightly mirtazapine and [...] -Cont depakote Asthma 11/15/2019 Assessment & Plan (05/19/2025 1:00 PM CDT): ProAir PRN Assessment & Plan (02/24/2023 2:02 AM CDT): [...] transplant evaluated pt in ED, following as senior health consultant -per recs, will change envarsus to [...] 11/17/2018 Assessment & Plan (06/25/2023 3:25 PM CLAIMS VICE PRESIDENT): Continue sertraline and Xanax Assessment & Plan (06/03/2023 5:33 AM CLAIMS VICE PRESIDENT): Continue home xanax PRN Assessment & Plan [...] Monitor Assessment & Plan (06/03/2023 5:41 AM CLAIMS VICE PRESIDENT): At home on glargine 28 units nightly [...] diabetes. Assessment & Plan (06/07/2022 5:38 PM CLAIMS VICE PRESIDENT): Hemoglobin A1c increased to 8.5% on 05/22/2022. [...] insulin. Assessment & Plan (08/08/2021 3:28 PM CLAIMS VICE PRESIDENT): -Currently taking MDI and using Lynda -A1C [...] control. Assessment & Plan (06/07/2022 5:25 PM CLAIMS VICE PRESIDENT): Managed by Dr. Bhatt. Needs optimal glycemic control. Assessment & Plan (03/23/2022 9:06 AM CDT): Managed by Dr. Bhatt. Needs optimal glycemic control Assessment & Plan (07/11/2020 5:49 PM CLAIMS VICE PRESIDENT): Resolved following course of antiviral therapy. 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 Assessment & Plan (06/07/2022 5:25 PM CLAIMS VICE PRESIDENT): Taking daily immunosuppressants which complicate glycemic management. Assessment & Plan (08/06/2021 3:09 PM CLAIMS VICE PRESIDENT): -FCI use of immunosuppressants and steroids complicates diabetes [...] has. I encouraged her to see an rn patient care again just to make sure that she does or does not need ongoing follow-up Assessment & Plan (08/06/2021 3:07 PM CLAIMS VICE PRESIDENT): -Patient is legally blind -CGM allows for [...] Problem Noted Date Diagnosed Date Resolved Date Localized edema 01/22/2024 05/19/2025 Assessment & Plan (01/22/2024 4:11 PM CDT): Continue furosemide Ketosis 06/03/2023 06/25/2023 Assessment & Plan (06/03/2023 5:41 AM CLAIMS VICE PRESIDENT): Patient presenting with nausea and vomiting that [...] 06/25/2023 Assessment & Plan (06/03/2023 5:45 AM CLAIMS VICE PRESIDENT): Presenting with 1 week history of UT [...] hypoglycemia. Assessment & Plan (06/07/2022 5:23 PM CLAIMS VICE PRESIDENT): Now improved, but still need to minimize risk of hypoglycemia. Assessment & Plan (03/23/2022 9:03 AM CDT): Now improved, but still need to minimize risk of hypoglycemia Non-intractable vomiting 03/28/2021 Overview (03/28/2021): Added automatically from request for surgery [id number] Colon cancer screening 03/28/202104/19 Overview (03/28/2021): Added automatically from request for surgery [id number] Gastroparesis 02/23/2021 06/25/2023 Assessment & Plan (02/20/2023 [...] 02/23/2021 Assessment & Plan (08/08/2021 3:29 PM CLAIMS VICE PRESIDENT): -BP today is 132/78 -Will continue same [...] scopolamine patch. She does not meet [facility] criteria for use of palonosetron. [...] 08/03/2020 Assessment & Plan (08/03/2020 3:05 PM CLAIMS VICE PRESIDENT): Plan is to give Augmentin 875/125 b.i.d. [...]
--- OUTSIDE RECORDS SUMMARY | 2025-05-27 14:17 | XMS_ITS | Clinical Summary ---
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 1 each 024 Active Breo Ellipta 100-25 mcg/dose diskus inhaler INHALE 1 PUFF BY MOUTH DAILY -RINSE MOUTH WITH WATER AFTER USE. DO NOT SWALLOW 60 each 3 024 Active Zenpep 60,000-189,600- 252,600 unit capsule,delayed release(DR/EC) TAKE 1 CAPSULE BY MOUTH WITH MEALS AND/OR SNACKS Active cholecalciferol (VITAMIN D-3) 2000 unit capsule [...] A DAY 270 tablet 11 025 Active azaTHIOprine (IMURAN) 50 mg tabletIndications [...] 3 tablets (3 mg total) by mouth spare hand carding before breakfast DO NOT TAKE ON 11/28, [...] MOUTH EVERY DAY 90 tablet 2 Active HumaLOG 100 unit/mL pen for injectionIndicati ons:Type 1 diabetes mellitus with other specified complication Inject 6 units for breakfast, 10 units for lunch and 6 units for dinner plus correction scale. TDD 50 units. 15 mL 11 Active Contour Next Test Strips stripIndications: Type 1 diabetes mellitus with other specified complication Use to test blood sugar 1 times per day. 100 each 3 Active gabapentin (NEURONTIN) 300 mg capsule Take 1 capsule (300 mg total) by mouth 3 (three) times a day 270 capsule 4 025 2025 Active acidophilus-pecti n, citrus 100 million cell-10 mg capsule Take by mouth Activ e cranberry 500 mg capsule Take by mouth Active predniSONE (DELTASONE) 5 mg tablet TAKE 1 TABLET BY MOUTH EVERY DAY 30 tablet 11 Active zolpidem (AMBIEN) 10 mg tablet TAKE 1 TABLET BY MOUTH EVERY DAY AT BEDTIME NEEDED FOR SLEEP 30 tablet 1 Active ALPRAZolam (XANAX) 0.5 mg tabletIndications :Anxiety TAKE 1 TABLET BY MOUTH THREE TIMES A DAY NEEDED FOR ANXIETY 90 tablet Active traMADoL (ULTRAM) 50 mg tablet Take 2 tablets (100 mg total) by mouth every 6 (six) hours as needed for pain 240 tablet Active tirzepatide (MOUNJARO) 5 mg/0.5 mL pen injector injection Inject 0.5 mL (5 mg total) under the skin every 7 days 2 mL 11 025 2025 Active sertraline (ZOLOFT) 100 mg tablet Take 1 tablet (100 mg total) by mouth daily 90 tablet 025 2025 Active famotidine (PEPCID) 20 mg tablet Take 1 tablet (20 mg total) by mouth 2 (two) times a day 60 tablet 3 025 2025 Active sertraline (ZOLOFT) 50 mg tablet TAKE 1 TABLET BY MOUTH EVERY DAY 90 tablet 3 025 2024 Discontinued(A lternate therapy) zolpidem (AMBIEN) 10 mg tablet TAKE 1 TABLET BY MOUTH NIGHTLY NEEDED FOR SLEEP 30 tablet 1 025 2024 Discontinued tirzepatide (Mounjaro) 2.5 mg/0.5 mL pen injector injectionIndicati ons:Insulin resistance,Diabet es mellitus with features of insulin resistance (HCC) Inject 0.5 mL (2.5 mg total) under the skin once a week 2 mL 11 025 2024 Discontinued traMADoL (ULTRAM) 50 mg tablet Take 2 tablets (100 mg total) by mouth every 6 (six) hours as needed for pain 240 tablet 025 2024 Discontinued ALPRAZolam (XANAX) 0.5 mg tabletIndications :Anxiety TAKE 1 TABLET (0.5 MG TOTAL) BY MOUTH 3 (THREE) TIMES A DAY NEEDED FOR ANXIETY. 90 tablet 025 2024 Discontinued Active Problems Patient Care Coordination No te Formatting of this note migh t be different from the original. Lab: [facility]- [phone] Standing Orders q-monthly FK, q3-HgbA1C. Exp. 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 POD1 N/V and Abd pain. [...] glucoses. Assessment & Plan (06/07/2022 5:24 PM RESIDENTIAL MONITOR): This affects her ability to see a [...] Stable. Assessment & Plan (06/03/2023 5:34 AM RESIDENTIAL MONITOR): Previous history of smoking. - Continue home inhalers and singulair. Essential hypertension 11/15/2019 Assessment & Plan (11/17/2024 3:59 PM CDT): BP at target Assessment & Plan (06/03/2023 5:41 AM RESIDENTIAL MONITOR): Hold amlodipine for soft blood pressures. Assessment [...] 11/15/2019 Assessment & Plan (06/03/2023 5:43 AM RESIDENTIAL MONITOR): Continue home statin. Assessment & Plan (02/24/2023 2:01 AM CDT): Cont home atorva 20mg. Assessment & Plan (11/05/2022 9:21 AM CDT): On atorvastatin 20mg. Optimize glycemic control. 10/2022- TG 173, HDL 66, LDL 66 Assessment & Plan (06/07/2022 5:29 PM RESIDENTIAL MONITOR): Continue statin therapy (atorvastatin 20mg) and optimize [...] stable. Assessment & Plan (06/03/2023 5:34 AM RESIDENTIAL MONITOR): - Continue home sertraline, nightly mirtazapine and [...] transplant evaluated pt in ED, following as qm consultant -per recs, will change envarsus to [...] 11/17/2018 Assessment & Plan (06/25/2023 3:25 PM RESIDENTIAL MONITOR): Continue sertraline and Xanax Assessment & Plan (06/03/2023 5:33 AM RESIDENTIAL MONITOR): Continue home xanax PRN Assessment & Plan [...] Monitor Assessment & Plan (06/03/2023 5:41 AM RESIDENTIAL MONITOR): At home on glargine 28 units nightly [...] diabetes. Assessment & Plan (06/07/2022 5:38 PM RESIDENTIAL MONITOR): Hemoglobin A1c increased to 8.5% on 05/22/2022. [...] AM CDT): Clinically much improved with the Lnyda device to help provide low and high [...] insulin. Assessment & Plan (08/08/2021 3:28 PM RESIDENTIAL MONITOR): -Currently taking MDI and using Lynda -A1C [...] control. Assessment & Plan (06/07/2022 5:25 PM RESIDENTIAL MONITOR): Managed by Dr. Bhatt. Needs optimal glycemic control. Assessment & Plan (03/23/2022 9:06 AM CDT): Managed by Dr. Bhatt. Needs optimal glycemic control Assessment & Plan (07/11/2020 5:49 PM RESIDENTIAL MONITOR): Resolved following course of antiviral therapy. 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 Assessment & Plan (06/07/2022 5:25 PM RESIDENTIAL MONITOR): Taking daily immunosuppressants which complicate glycemic management. Assessment & Plan (08/06/2021 3:09 PM RESIDENTIAL MONITOR): -senior living use of immunosuppressants and steroids complicates diabetes [...] has. I encouraged her to see an plant changer again just to make sure that she does or does not need ongoing follow-up Assessment & Plan (08/06/2021 3:07 PM RESIDENTIAL MONITOR): -Patient is legally blind -CGM allows for increase in safety as there is audile alarm for high and low blood sugars Resolved Problems Problem Noted Date Diagnosed Date Resolved Date Localized edema 01/22/2024 05/19/2025 Assessment & Plan (01/22/2024 4:11 PM CDT): Continue furosemide Ketosis 06/03/2023 06/25/2023 Assessment & Plan (06/03/2023 5:41 AM RESIDENTIAL MONITOR): Patient presenting with nausea and vomiting that [...] 06/25/2023 Assessment & Plan (06/03/2023 5:45 AM RESIDENTIAL MONITOR): Presenting with 1 week history of UT [...] hypoglycemia. Assessment & Plan (06/07/2022 5:23 PM RESIDENTIAL MONITOR): Now improved, but still need to minimize risk of hypoglycemia. Assessment & Plan (03/23/2022 9:03 AM CDT): Now improved, but still need to minimize risk of hypoglycemia Non-intractable vomiting 03/28/2021 Overview (03/28/2021): Added automatically from request for surgery [id number] Colon cancer screening 03/28/202104/19 Overview (03/28/2021): Added automatically from request for surgery [id number] Gastroparesis 02/23/2021 06/25/2023 Assessment & Plan (02/20/2023 [...] 02/23/2021 Assessment & Plan (08/08/2021 3:29 PM RESIDENTIAL MONITOR): -BP today is 132/78 -Will continue same [...] 08/03/2020 Assessment & Plan (08/03/2020 3:05 PM RESIDENTIAL MONITOR): Plan is to give Augmentin 875/125 b.i.d. [...] Encounters Date Type Department Care Team Description 05/26/2025 Orders Only [facility] Nephrology [address] 5[address] [place] [address] [place] [address] Jose Rafael Ramos MD 05/19/2025 12:30 PM CDT Office Visit [facility] [address] [place] [address] Marlee Mckeon NP Anxiety and depression (Primary Dx); Gastroesophageal reflux disease, unspecified whether esophagitis present; Mild intermittent asthma without complication 05/17/2025 Telephone [facility] Endocrinology Metabolism and Lipid [address] 13th [place] [address] [place] [address] Patricia Ravi, tree climber Mounjaro dosage 04/08/2025 Lab [facility] Transplant Kidney [address] [id number] [place] [address] America Rosa MD 04/06/2025 Telephone [facility] Transplant Kidney [address] [phone] [place] [address] Juana Jimenez RN 04/05/2025 2:00 PM CDT Lab [facility] ([facility]) [address] [place] [address] Encounter for aftercare following kidney transplant 04/05/2025 10:45 AM CDT Office Visit [facility]phrology [address] [place] [address] [place] [address] Lainey Mooney NP Encounter for aftercare following kidney transplant (Primary Dx); Kidney replaced by transplant; Encounter for long-term (current) use of high-risk medication; Hypertension, unspecified type; senior living current use of immunosuppressive drug; High risk medication use 03/31/2025 Results Follow-Up [facility] 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 [place] [address] Ramon Chaney MD Claudication (Primary Dx); Renal transplant recipient; Type 1 diabetes mellitus with other specified complication; Essential hypertension 03/18/2025 3:00 PM CDT Clinical Support [facility] Endocrinology Metabolism and Lipid [address] [place] [address] [place] [address] Type 1 diabetes mellitus with other specified complication (Primary Dx) 03/16/2025 Orders Only [facility] Medicine Nephrology [address] 5[address] [place] [address] [place] [address] Jose Rafael Ramos MD 03/10/2025 Telephone [facility] Transplant Kidney [address] [phone] [place] [address] Francheska Esteves 03/09/2025 Telephone [facility] Transplant Kidney [address] [phone] [place] [address] Mirtha Taylor 03/08/2025 Telephone [facility] Transplant Kidney [address] [phone] [place] [address] Mirtha Taylor from Last 3 Months Immunizations Immunization Administration Dates Next Due COVID-19 mRNA (PageBites) 0.3 m L (30 mcg) vaccine (12 [...] Anemia Hard to intubate per 02/2019 [facility] transplant notes Lee positive DM (diabetes mellitus) [...] e alcohol) [facility] Utilities Answer Date Recorded In the past 12 months has th e [employer], gas, oil, or water [employer] threatened to shut off services in your [...] answer 11/28/2023 How often do you attend [facility]? Patient unable to answer 11/28/2023 Do you belong to any clubs o r organizations such as yarsani groups, unions, fraternal or athletic groups, or [...] place to sleep or slept in a nursing home (including now)? Patient unable to answer 11/28/2023 Personal Safety Answer Date Recorded Have you ever been in or are you currently in a harmful physical or emotional relationship or is someone making you feel afraid or unsafe? 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 Not on file Not on file Obstetrics History Last Filed Vital Signs Vital Sign Reading Time Taken Comments Blood Pressure 118/72 05/19/2025 12:34 PM CDT Pulse 82 05/19/2025 12:34 PM CDT Temperature 36.9 C (98.4 F) 04/05/2025 11:13 AM CDT Respiratory Rate 18 12/20/2023 2:32 PM CDT Oxygen Saturation 95% 05/19/2025 12:34 PM CDT Inhaled Oxygen Concentration - - Weight 68.5 kg (151 lb) 05/19/2025 12:34 PM CDT Height 157.5 cm (5' 2.01) 05/19/2025 12:34 PM C DT Body Mass Index 27.61 05/19/2025 12:34 PM CDT Plan of Treatment Scheduled Procedures [...] Additional history exists TSH Level 10/25/2021 10/25/2020, 08/10/2019, 07/06/2019 Zoster Vaccine (2 of 2) 10/16/2024 08/21/2024 Dilated Eye Exam 10/27/2024 10/28/2023 Covid-19 Vaccine (6 - Pfizer risk 2023- season) 2025 04/05/2024, 04/17/2021, 11/20/2020, Additional history exists Influenza Vaccine (#1) 2025 4, 06/24/2020, 05/02/2020, Additional history exists Albumin Creatinine Ratio, Urine 07/14/2025 4, 07/06/2019 Hemoglobin A1C 11/24/2025 05/26/2025, 02/27, 12/04/2024, Additional history exists Foot Exam 12/04/2025 12/04/2024 Lipid Panel 05/26/2026 05/26/2025, 04/29, 02/18/2024, Additional history exists eGFR 05/26/2026 05/26/2025, 09/0 02/2025, 03/16/2025, Additional history exists Colon Cancer Screening-Colonoscopy 05/08/20322021, 05/07/2022 Hepatitis C Screening Completed 04/29/2024 , 11/05/2022, 06/07/2022, Additional history exists Medical Devices Explanted 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 Device Identifier Shelf Expiration Date Model / Serial / Lot Circon-Surgit ek [id number] 6fr 20cm 100cm 1 Step Insert Push Catheter [place] Suture - [id number] Implanted:Qty : 1 on 03/09/2019 by Tommie Cortes MD at [facility] Explanted:Qty : 1 on 04/06/2019 by Ted Farrell NP Stent Right: Ureter Circon-Surgitek [id number] 02/14/2023 [id number] / / [id number] Description:Transplanted Ure ter Procedures Procedure Name Priority Date/Time Associated Diagnosis Comments RENAL FUNCTION PANEL Routine 05/26/2025 8:29 AM CDT HEPATIC FUNCTION PANEL, SERUM Routine 05/26/2025 8:29 AM CDT LIPID PANEL Routine 05/26/2025 8:29 AM CDT CBC WITH AUTO DIFFERENTIAL Routine 05/26/2025 8:29 AM CDT HEMOGLOBIN A1C Routine 05/26/2025 8:29 AM CDT COPY(IES) SENT TO: Routine 05/26/2025 8: 29 AM CDT HLA DONOR SPECIFIC ANTIBODY REPORT 04/05/2025 12:08 [...] CELL-FREE DNA (CFDNA) Routine 04/05/2025 POCT GLUCOSE [id number] Routine 03/26/2025 3: 43 PM CDT Type [...] TO: Routine 03/16/2025 8: 07 AM CDT ALBUMIN CREATININE RATIO, URINE Routine 07/14/2024 8:26 AM RESIDENTIAL MONITOR Type 1 diabetes mellitus with other specified complication (HCC) DIABETIC EYE EXAM Routine 10/28/2023 2:2 7 PM CDT COLONOSCOPY 05/08/2022 12:35 PM CDT TSH Routine 10/25/2020 2:58 PM CDT Anxiety HEPATITIS C RNA, QUANTITATIVE, PCR STAT 03/02/2020 4:44 PM CDT from Last 3 Months or Most Recently Relevant to Health Maintenance Results * COPY(IES) SENT TO: (05/26/2025 8:29 AM CDT) COPY(IES) SENT TO: [facility] Comment: [facility] KIDNEY - COPY TO [facility] [address] [place] [address] 05/26/2025 8:29 AM CDT 05/26/2025 8:29 AM CDT Narrative [facility] - 05/27/2025 3:50 AM CDT PAE FASTING:YES FASTING: YES us Jose Rafael Ramos MD LAB BLOOD ORDERABL ES Final Result [facility] * (ABNORMAL) Hepatic Function Panel, Serum (05/26/2025 [...] BLOOD ORDERABL ES Final Result [facility] [address], [place] [address] * (ABNORMAL) CBC with auto differential (05/26/2025 8:29 AM CDT) Pathologist [facility] WBC 6.2 3.8 - 10.8 Thousand/u L [...] ORDERABL ES Final Result Performing Organization Address City/[facility]/ZIP Co de Phone Number [facility] [address] [facility] [place] [address] * (ABNORMAL) Hemoglobin A1c (05/26/2025 8:29 AM [...] ORDERABL ES Final Result Performing Organization Address City/[facility]/ZIP Co de Phone Number [facility] [address] [place] [address] * (ABNORMAL) Renal function panel (05/26/2025 8:29 [...] BLOOD ORDERABL ES Final Result [facility] [address] [place] [address] * (ABNORMAL) Lipid panel (05/26/2025 8:29 AM CDT) Cholesterol 167 <200 mg/dL [facility] [...] factors. LDL-C is now calculated using the Von-Abad calculation, which is a validated novel method providing better accuracy than the Friedewald equation in the estimation of LDL-C. Von SS et al. ELISA. 2013;310(31): 9740-0810 (http://education.Eventbrite/faq/HLF999) Chol/HDL ratio 3.0 <5.0 (calc) [facility] [...] ORDERABL ES Final Result Performing Organization Address City/[facility]/ZIP Co de Phone Number [facility] [address] [place] [address] * BK virus PCR quantitative Blood (04/05/2025 12:08 PM CDT) [facility] BKV DNA result, pl Not Detected [facility] Comment: The quantifiable range of this assay is 21.5 IU/mL to 100,000,000 IU/mL (1.33 log IU/mL to 8.00 log IU/mL). Testing was performed by the KARLY 6800 BKV Quantatitive Test version 2.0 ([employer] Testing performed at [facility] Current Interpretive Data was last revised on 2021. Blood 04/05/2025 12:0 8 PM CDT 04/05/2025 1:12 PM CDT Lainey Mooney NP LAB MICROBIOLOGY - GENERAL O RDERABLES Final Result [facility] [address] [facility] Department [place] [address] BJ * HLA Donor Specific Antibody Report (04/05/2025 12:08 PM CDT) Lainey Mooney NP LAB BLOOD ORDERABLES Final R esult * HLA Antibody Screen - DSA (Class I and Class II) (04/05/2025 12:08 PM CDT) Blood 04/05/2025 12:0 8 PM CDT 04/06/2025 11:21 AM CDT Narrative [facility] - 04/06/2025 11:21 AM CDT Lainey Mooney NP LAB BLOOD ORDERABLES Final R esult Performing Organization Address [facility]/ZIP Co de Phone Number [facility] * Cytomegalovirus (CMV) DNA PCR, quantitative Blood (04/05/2025 12:08 PM CDT) Pathologist [facility] CMV DNA Not Detected [facility] Comment: Interpretive Data: The quantifiable range of this assay is 34 IUnits/mL to 10,000,000 IUnits/mL (1.53 log IUnits/mL to 7.0 log IUnits/mL). Testing was performed by the KARLY 6800 CMV Test ([employer] Testing performed at [facility]. Current interpretive data was last revised on 2021. Blood 04/05/2025 12:0 8 PM CDT 04/05/2025 1:12 PM CDT Lainey Mooney NP LAB MICROBIOLOGY - GENERAL O RDERABLES Final Result [facility] [address] [facility] Department [place] [address] BJ * (ABNORMAL) eGFR (04/05/2025 12:08 PM CDT) Pathologist [facility] eGFR 45(L) >=60 mL/min/1. 73 m2 Comment: [...] of Race in Diagnosing Kidney Disease, JASN 2020). The CKD-EPI equation should not be used for patients with unstable renal function and has not been validated in children and those over 70. Current interpretive data was last reviewed 2021. Blood 04/05/2025 12:0 8 PM CDT 04/05/2025 1:20 PM CDT us Lainey Mooney NP LAB BLOOD ORDERABLES Final R esult [facility] [address] [facility] Department [place] [address] * (ABNORMAL) Basic metabolic panel (04/05/2025 12:08 PM CDT) Sodium 137 135 - 145 mmol/L Potassium, pl 3.7 3.3 - 4.9 mmol/L [facility] Chloride 95(L) 97 - 110 mmol/L [facility] CO2 33(H) 22 - 32 mmol/L [facility] Anion gap 9 2 - 15 mmol/L [facility] BUN 23 6 - 25 mg/dL [facility] Creatinine 1.42(H) 0.60 - 1.10 mg/dL [facility] Glucose 153 70 - 199 mg/dL [facility] Comment: Interpretive Data Fasting glucose [...] 2022. Calcium 10.2 8.5 - 10.3 mg/dL [facility] Blood 04/05/2025 12:0 8 PM CDT 04/05/2025 1:20 PM CDT Lainey Mooney NP LAB BLOOD ORDERABLES Final R esult Performing Organization Address [facility] Co de Phone Number [facility] Department [place] [address] * Collection Task for HLA Antibody Screen (04/05/2025 11:28 AM CDT) [facility] HLA Antibody Screen By Single Antigen Received Blood 04/05/2025 11:2 8 AM CDT 04/06/2025 9:55 AM CDT Lainey Mooney NP LAB BLOOD ORDERABLES Final R esult Performing Organization Address City/[facility] Co de Phone Number [facility] Department [place] [address] * POCT urinalysis dipstick (04/05/2025 11:11 AM CDT) Pathologist [facility] Glucose, ur, POC Negative Negative [facility] NO LAB FOUND Bilirubin, ur, POC Negative Negative [facility] NO LAB FOUND Ketones, ur, POC Negative Negative TXP NO LAB FOUND Specific [place], POC 1.015 1.003 - 1.030 TXP NO [...] Negative TXP NO LAB FOUND Lot Number [id number] TX[facility] NO LA B FOUND Urine 04/05/2025 11:1 1 AM CDT Lainey Mooney NP POINT OF CARE TEST ORDERABLE S Final Result Performing Organization Address City/[facility]/ZIP Co de Phone Number [facility] NO LAB FOUND * [facility] kidney donor-derived cell-free DNA (cFDNA) (04/05/2025) SCRIBED [facility] cfDNA 0.10 % [facility] NO LAB FOUND Plasma 04/05/2025 Historical Provider LAB BLOOD ORDERABLES Edit ed Result - Final Performing Organization Address City/[facility] Co de Phone Number [facility] NO LAB FOUND * POCT glucose (03/26/2025 3:43 PM CDT) Glucose Blood, POC 200 Normal Fasting 70 - 100, Random <200 mg/dL Blood 03/26/2025 3:43 PM CDT Erica Tyler MD POINT OF CARE TEST O RDERABLES Final Result * US Arterial Doppler Lower Extremity Bilateral (03/25/2025 2:40 PM CDT) Anatomical Region Laterality Modality Vascular N/A Ultrasound 03/25/2025 2:07 PM CDT Narrative 03/26/2025 6:31 AM CDT [facility] [employer] - Department of Vascular Surgery, Vascular Laboratory [address] [place] [id number] Lower Extremity Arterial Doppler Report Patient Name: KENDY LOMELI : 1975 Study Date: 03/25/2025 2:07:00 PM Gender: F Tech: Dilcia Rojas RDMS,RVT Location: [facility] Provider: RAMON CHANEY Quality: Adequate Order Provider: RAMON CHANEY PROCEDURES: Arterial Report: Bilateral lower extremity arterial Doppler exam at rest. INDICATIONS: claudication Dx: Claudication [I73.9 (ICD-10-CM)] I73.9 Peripheral vascular disease, unspecified. MEASUREMENTS: Right Value Units Left Value Units Rt Brachial Pressure 143 mmHg Lt VEHICLE UPHOLSTERER Pressure 144 mmHg Rt VEHICLE UPHOLSTERER Pressure 138 mmHg Lt DPA Pressure 146 mmHg Rt DPA Pressure 139 mmHg Lt 1st Digit Pressure 91 mmHg Rt 1st Digit Pressure 106 mmHg Lt PT BIANCA Resting 1.01 Rt PT BIANCA Resting 0.97 Lt AT BIANCA Resting 1.02 Rt AT BIANCA Resting 0.97 Lt Digit/Arm Index 0.64 Rt Digit/Arm Index 0.74 Right Value Units Left Value Units FINDINGS: Performing Cord Cutter: Dilcia Mock RDMS, RVT. Bilateral All Levels [...] above. Electronically Signed By: Drew Peres MD [facility] [phone] 03/26/2025 5:34:57 AM CDT Procedure Note Drew Peres MD - 03/26/2025 [facility] [employer] - Department of Vascular Surgery,Vascular Laboratory [address] [place] [address] Lower Extremity Arterial Doppler Report Patient Name: KENDY LOMELI : 1975 Study Date: 03/25/2025 2:07:00 PM Gender: F Tech: Dilcia Rojas [facility] Location: [facility] Ref Provider: RAMON CHANEY Quality: Adequate Order Provider: RAMON CHANEY PROCEDURES: Arterial Report: Bilateral lower extremity arterial Doppler exam at rest. INDICATIONS: claudication Dx: Claudication [I73.9 (ICD-10-CM)] I73.9 Peripheral vascular disease, unspecified. MEASUREMENTS: Right Value Units Left Value Units Rt Brachial Pressure 143 mmHg Lt VEHICLE UPHOLSTERER Pressure 144 mmHg Rt VEHICLE UPHOLSTERER Pressure 138 mmHg Lt DPA Pressure 146 mmHg Rt DPA Pressure 139 mmHg Lt 1st Digit Pressure 91 mmHg Rt 1st Digit Pressure 106 mmHg Lt PT BIANCA Resting 1.01 Rt PT BIANCA Resting 0.97 Lt AT BIANCA Resting 1.02 Rt AT BIANCA Resting 0.97 Lt Digit/Arm Index 0.64 Rt Digit/Arm Index 0.74 Right Value Units Left Value Units FINDINGS: Performing Cord Cutter: Dilcia Mock, TATIANA, RVT. Bilateral All Levels : The bilateral [...] above. Electronically Signed By: Drew Peres MD [facility] [phone] 03/26/2025 5:34:57 AM CDT us Ramon Chaney MD IM US PROCEDURES Final Resul t * (ABNORMAL) POCT hemoglobin A1c (03/18/2025 3:22 PM CDT) Pathologist [facility] Hemoglobin A1C, POC 8.3(A) 4.0 - 5.6 % Blood 03/18/2025 3:[address] POINT OF CARE TEST ORDER JANEE Final Result * Tacrolimus, Highly Sensitive, LC/MS/MS (03/16/2025 8:07 AM CDT) Pathologist [facility] Tacrolimus, Highly Sensitive, LC/MS/MS 6.1 mcg/L [facility] [...] ORDERABL ES Final Result Performing Organization Address City/[facility] Co de Phone Number [facility] [address] [place] [address] * COPY(IES) SENT TO: (03/16/2025 8:07 AM CDT) Pathologist [facility] COPY(IES) SENT TO: [facility] Comment: [facility] - COPY TO [facility] [address] [place] [address] 03/16/2025 8:07 AM CDT 03/16/2025 8:07 AM CDT Narrative [facility] - 03/17/2025 4:30 PM CDT PAE Jose Rafael Ramos MD LAB BLOOD ORDERABL ES Final Result [facility] * (ABNORMAL) CBC with auto differential (03/16/2025 8:07 AM CDT) [facility] WBC 7.9 3.8 - 10.8 Thousand/u L [...] 8:07 AM CDT 03/16/2025 8:07 AM CDT [facility] - 03/17/2025 4:30 PM CDT PAE us Jose Rafael Ramos MD LAB BLOOD ORDERABL ES Final Result Performing Organization Address City/[facility]/ZIP Co de Phone Number [facility] [address] [place] [phone] * (ABNORMAL) Renal function panel (03/16/2025 8:07 AM CDT) Glucose 222(H) 65 - 99 mg/dL [facility] [...] ORDERABL ES Final Result Performing Organization Address [facility]/ZIP Co de Phone Number LUISITO [facility] [address] [place] [phone] * Albumin Creatinine Ratio, Urine (07/14/2024 8:26 AM RESIDENTIAL MONITOR) Creatinine, ur 95 20 - 275 mg/dL [...] a diagnostic category. Urine 07/14/2024 8:26 AM RESIDENTIAL MONITOR 07/14/2024 8:26 AM RESIDENTIAL MONITOR Drew Godoy MD LAB URINE ORDERABLES Final Res ult [facility] [address] [place] [address] * Diabetic Eye Exam (10/28/2023 2:27 PM [...] Female Attending MD: Cricket Santamaria M.D. Room: [facility] ENDOSCOPY ROOM 8 Note Status: Finalized Procedure: Colonoscopy Indications: Screening for colorectal malignant neoplasm. Inadequate preparation for screening colonoscopy yesterday. Referring MD: Ramon Chaney M.D. Providers: Cricket Santamaria M.D. Medicines: Monitored [...] The scope was passed under direct vision.The [id number] endoscope was introduced through the anus and advanced to the cecum, identified by appendiceal orifice and ileocecal valve. The colonoscopy was performed without difficulty. The patient tolerated the procedure well. The qualityof the bowel preparation was evaluated using the BBPS ([place] Bowel Preparation Scale) with scores of:Right Colon [...] following this procedure please call my office [phone]). After hours and eveningsplease call [phone] and speak to the GI fellow augustin. [...] On: 05/08/2022 12:35 PM Recognized by the [employer] for promoting quality in endoscopy us Cricket Santamaria MD ENDOSCOPY PROCEDURES Fi nal Result * TSH (10/25/2020 2:58 PM CDT) Pathologist [facility] TSH 0.671 0.450 - 4.500 uIU/mL [facility] - 01 Blood specimen (specimen) 10/25/2020 2:58 PM CDT 10/25/2020 Narrative [facility] - 10/26/2020 8:15 AM CDT Performed at: - [place] [address] Tours Captain: Jean-Claude Snider PhD, Phone: [phone] us Ramon Chaney MD LAB BLOOD ORDERABLES Final Re sult [facility] - 01 * Hepatitis C (HCV) RNA PCR, quantitative (03/02/2020 4:44 PM CDT) Pathologist [facility] HCV RNA result Not Detected [facility] [place] Comment: Interpretive data: The quantifiable range of this assay is 15 IU/mL to 100,000,000 IU/mL (1.18 log IU/mL to 8.00 log IU/mL). Testing was performed by the [employer] AmpliPrep/KARLY TaqMan HCV Test version 2.0 ([employer] Testing performed at [facility] Current Interpretive Data was last revised on 2015. Blood specimen (specimen) 03/02/2020 4:44 PM CDT 03/02/2020 5:00 PM CDT Malcolm Mann MD LAB MICROBIOLOGY - GENERA L ORDERABLES Final Result [facility] Department [place] [address] from Last 3 Months or Most Recently Relevant to Health Maintenance Insurance [facility] MEDICARE [facility] Address: [address] [address] [place] [address] [facility] MEDICARE [facility] MEDICARE [facility] Address: [facility] [address] [place] [address] Advance Directives For more information, please contact: [phone] * Full Code (Latest Code Status on [...] 11:12 AM 05/08/2022 5:48 PM Care Teams Coat Hanger Shaper Machine Operator Relationship Specialty Start Date End Date Ramon Chaney MD PCP - General 08/31/16 Burak Blue MD Consulting Physician Nephrology 04/21/18 Juana Jimenez, RN Bryologist 03/09/19 Sylwia García MD Referring Physician Endocrinology Diabetes & Metabolism 03/21/20 Igor Yeager DO Consulting Physician Urology 04/27/20 Cristina Boyer RN [address] [id number] Secondary Kidney Coordinator Transplant 08/25/20 Cyn Fang NP [address] [id number] Nurse Practitioner Nurse Practitioner 12/06/21 Gavi Cervantes NP [address] [facility], [facility] [address] [place], [place] [id number] Nurse Practitioner Family Medicine 01/06/25
[2025-05-27 15:48] LABS: Hematocrit 42.8 % (37.0-47.0); Hemoglobin 14.6 g/dL (12.0-15.0); Immature Platelet Fraction Pct 5.4 % (0.9-11.2); Mean Corpuscular HGB Conc 34.1 g/dl (32-36); Mean Corpuscular Hemoglobin 33.9 pg (26-34); Mean Corpuscular Volume 99.3 fl (80-100); Platelet Count Result 133 k/mm3 (150-375); Red Blood Count 4.31 M/mm3 (4.2-5.4); White Blood Count 10.6 K/mm3 (4.5-10.0)
--- NOTE | 2025-05-27 15:53 | ED.NAVMDI ---
HPI - Nausea/Vomiting/Diarrhea General Chief complaint: Nausea/Vomiting/Diarrhea Stated complaint: Vomiting x 4 hrs, abdominal pain Time Seen by Provider: 05/27/25 15:44 Source: patient Mode of arrival: ambulatory Limitations: no limitations History of Present Illness HPI Narrative: 50 YEARS OLD WHITE FEMALE CAME TO THE ED BY PRIVATE CAR COMPLAINING OF NAUSEA, VOMITING AND DIARRHEA ASSOCIATED WITH ABDOMINAL PAIN STARTED FEW HOURS PRIOR TO ARRIVAL. HISTORY OF KIDNEY TRANSPLANT AND INTERMITTENT SIMILAR SYMPTOMS IN THE PAST. SHE DENIES ANY FEVER OR CHILLS OR URINARY SYMPTOMS. Related Data Home Medications ?Medication ?Instructions ?Recorded ?Confirmed ?Last Taken ?Type aspirin 81 mg tablet,delayed 81 mg PO DAILY 08/30/20 05/27/25 05/26/25 History release (Adult Aspirin Regimen) azathioprine 50 mg tablet 50 mg PO DAILY 08/30/20 05/27/25 05/26/25 History omeprazole 20 mg capsule,delayed 20 mg PO DAILY 08/30/20 05/27/25 05/26/25 History release zolpidem 10 mg tablet (Ambien) 10 mg PO HS 08/30/20 05/27/25 05/26/25 History atorvastatin 20 mg tablet 20 mg PO DAILY 12/22/23 05/27/25 05/26/25 History cholecalciferol (vitamin D3) 50 50 mcg PO DAILY 12/22/23 05/27/25 05/26/25 History mcg (2,000 unit) tablet (Vitamin D3) cyanocobalamin (vitamin B-12) 500 1,000 mcg PO DAILY 12/22/23 05/27/25 05/26/25 History mcg tablet epinephrine 0.3 mg/0.3 mL 0.3 mg IM Q5-15M PRN Anaphylaxis 12/22/23 05/27/25 Unknown History injection, auto-injector flash glucose sensor (FreeStyle 12/22/23 05/27/25 Unknown History Lynda 14 Day Sensor kit) fluticasone furoate 100 1 inh inhalation DAILY 12/22/23 05/27/25 05/26/25 History mcg-vilanterol 25 mcg/dose inhalation powder (Breo Ellipta) gabapentin 100 mg capsule 100 mg PO TID 12/22/23 05/27/25 05/26/25 History insulin glargine U-300 conc 300 24 unit subcut DAILY 05/05/27/25 05/26/25 History unit/mL (1.5 mL) subcutaneous pen (Toujeo SoloStar U-300 Insulin) montelukast 10 mg tablet 10 mg PO DAILY 12/22/23 05/27/25 05/26/25 History pen needle, diabetic 31 gauge x 12/22/23 05/27/25 Unknown History 10/11 (BD Ultra-Fine Mini Pen Needle) sertraline 50 mg tablet 50 mg PO DAILY 12/22/23 05/27/25 05/26/25 History tramadol 50 mg tablet 100 mg PO Q6H PRN Pain 12/22/23 05/27/25 05/26/25 History alprazolam 0.5 mg tablet 0.5 mg PO TID PRN Anxiety 01/10/24 05/27/25 05/26/25 History carvedilol 6.25 mg tablet (Coreg) 6.25 mg PO DAILY 01/10/24 05/27/25 05/26/25 History divalproex 500 mg tablet,delayed 500 mg PO TID 01/10/24 05/27/25 05/26/25 History release prednisone 5 mg tablet 5 mg PO DAILY 01/10/24 05/27/25 05/26/25 History tacrolimus 1 mg tablet,extended 3 mg PO DAILY 01/10/24 05/27/25 05/26/25 History release 24 hr (Envarsus XR) timolol maleate 0.5 % eye drops 2 drp EACH EYE BID 01/10/24 05/27/25 05/26/25 History fluticasone propionate 50 2 spray intranasal BID PRN RHINITIS 04/13/24 05/27/25 05/26/25 History mcg/actuation nasal spray,suspension glucagon 3 mg/actuation nasal 3 mg intranasal PRN PRN 04/13/24 05/27/25 08/01/24 12:00 History spray (Baqsimi) Hypoglycemia 3 mg insulin lispro 100 unit/mL See Rx Instructions .Route .COMPLEX 04/13/24 05/27/25 05/26/25 History subcutaneous half-unit pen furosemide 20 mg tablet (Lasix) 20 mg PO DAILY 08/08/24 05/27/25 05/26/25 History Allergies Allergy/AdvReac Type Severity Reaction Status Date / Time cyclobenzaprine Allergy Unknown Hives / Verified 05/27/25 21:42 Red Face metformin AdvReac Intermediate Vomiting Verified 05/27/25 21:42 tetracycline AdvReac Unknown Nausea and Verified 05/27/25 21:42 Vomiting acetaminophen (From Tylenol) AdvReac Nausea and Verified 05/27/25 21:42 Vomiting morphine AdvReac Itching Verified 05/27/25 21:42 Review of Systems Review of Systems: All systems reviewed & are unremarkable except as noted in HPI and below PMFSH Past Medical History Medical History (Updated 05/27/25 @ 22:52 by Callie Dwyer APRN) Bipolar disorder Peripheral neuropathy Anxiety UTI (urinary tract infection) Post-menopausal Pancreatic insufficiency Hypertension MRSA infection Chronic obstructive pulmonary disease Diabetic nephropathy Type 1 diabetes mellitus Diabetic gastroparesis Surgical History Surgical History History of right nephrectomy Secondary to suspicious mass which turned out to be noncancerous. History of benign breast biopsy History of hysterectomy History of appendectomy (02/2019) History of kidney transplant (02/2019) Y[place] Family History Family History Grandparent Diabetes mellitus Emphysema of lung Mother and grandparent Grandparent Hypertension Mother Lupus Social History Social History (Updated 05/27/25 @ 22:52 by Callie Dwyer APRN) Social History: She is and lives with her . She is disabled. She has no children. Surrogate medical decision maker: Aleja Mcghee, mother. Code status: Full code. Smoking packs per day: 1 Smoking cigarettes per day: 20.0 Years smoked: 10 Smoking pack-years: 10.00 Smoking status: Former smoker Tobacco type: cigarettes Second hand tobacco smoke exposure: No Smoking end date: 10/27/18 Alcohol intake: never Substance use: never Substance use type: marijuana Do You Feel Safe in your Home?: Yes Lack of Transportation: No Lack of Food: Never True Current Housing: I Have Housing Concerned About Future Housing: No Difficulty Paying Gas/Electric Bills: No Difficulty Paying for Meds: No Currently Unemployed: No Education: High School Diploma/GED Difficulty w/ Childcare or Family Care: No Spiritual care concerns: No Exam Narrative: GENERAL APPEARANCE: WELL-DEVELOPED, WELL-NOURISHED SKIN: NORMAL COLOR HEAD: NORMOCEPHALIC, NONTRAUMATIC EYES: CLEAR CONJUNCTIVA ENT: OROPHARYNX NORMAL, EARS NORMAL, NOSE NORMAL NECK: SUPPLE, NONTENDER CHEST AND RESPIRATORY: AIRWAY PATENT, NO RESPIRATORY DISTRESS, NO ACCESSORY MUSCLE USE HEART: REGULAR RATE/RHYTHM ABDOMEN: SOFT, DIFFUSE TENDERNESS, NO ORGANOMEGALY, QUIET BOWEL SOUNDS VASCULAR: NORMAL PERIPHERAL PULSES, NORMAL CAPILLARY REFILL. MUSCULOSKELETAL: NORMAL RANGE OF MOTION, NONTENDER BACK NEUROLOGIC: ALERT AND ORIENTED ?3, INTELLIGENCE SUPPORT OFFICER IS NORMAL TESTED, NO GROSS MOTOR DEFICIT Course Vital Signs Vital signs: Vital Signs Pulse Rate 108 H 05/27/25 13:49 Blood Pressure 96/57 L 05/27/25 13:49 Temperature 36.7 C 05/28/25 20:30 Pulse Rate 98 05/28/25 20:30 Respiratory Rate 16 05/28/25 20:30 Blood Pressure 159/89 H 05/28/25 20:30 Pulse Oximetry 98 05/28/25 21:14 Oxygen Delivery Room Air 05/28/25 21:14 MDM - Nausea/Vomiting/Diarrhea MDM Narrative Medical decision making narrative: PATIENT PRESENTS WITH NAUSEA VOMITING AND DIARRHEA, VITAL SIGN SHOWING BLOOD PRESSURE 185/105 OTHERWISE WITHIN NORMAL LIMIT PHYSICAL EXAMINATION SHOWING DIFFUSE ABDOMINAL PAIN, HYPERACTIVE BOWEL SOUNDS DIFFERENTIAL DIAGNOSIS INCLUDE DEHYDRATION, ELECTROLYTE IMBALANCE, VIRAL INFECTION BLOOD WORKUP TODAY INCLUDES CBC, CMP, LIPASE SHOWED BLOOD GLUCOSE 370 OTHERWISE WITHIN NORMAL LIMIT URINALYSIS SHOWED NO SIGNIFICANT ABNORMALITY PATIENT TESTED NEGATIVE FOR COVID FLU AND RSV CT ABDOMEN AND PELVIS WITH IV CONTRAST SHOWED POSSIBLE GASTRITIS OTHERWISE NO SIGNIFICANT ABNORMALITIES Differential Diagnosis Differential diagnosis: Likely other ( ABOVE) Medical Records Attestation: I reviewed the patient's medical records. Lab Data Attestation: I reviewed the patient's lab results. 05/28/25 05:14 05/28/25 05:14 Labs: Lab Results 05/27/25 05/27/25 05/27/25 Range/Units 13:59 15:40 16:34 WBC 10.6 H (4.5-10.0) K/mm3 RBC 4.31 (4.2-5.4) M/mm3 Hgb 14.6 (12.0-15.0) g/dL Hct 42.8 (37.0-47.0) % MCV 99.3 (80-100) fl MCH 33.9 (26-34) pg MCHC 34.1 (32-36) g/dl RDW 13.1 (11.5-14.5) % Plt Count 133 L (150-375) k/mm3 MPV 11.3 H (7.4-10.4) fl Immature Gran % (Auto) Not Reportable Neut % (Auto) Not Reportable Lymph % (Auto) Not Reportable Pitkin % (Auto) Not Reportable Eos % (Auto) Not Reportable Baso % (Auto) Not Reportable Lymph # (Auto) Not Reportable Pitkin # (Auto) Not Reportable Eos # (Auto) Not Reportable Baso # (Auto) Not Reportable Abs Immat Gran (auto) Not Reportable Absolute Neuts (auto) Not Reportable Absolute Nucleated RBC Not Reportable Total Counted 100 Neutrophils % (Manual) 62 (46-73) % Band Neutrophils % 7 H (0-6) % Lymphocytes % (Manual) 17 L (18-44) % Monocytes % (Manual) 9 (3-9) % Eosinophils % (Manual) 5 H (0-4) % Nucleated RBC % Not Reportable Abs Neuts (Manual) 7.31 H (1.3-6.7) K/mm3 Abs Lymphs (Manual) 1.80 (1.1-4.5) K/mm3 Abs Monocytes (Manual) 0.95 H (0.1-0.90) K/mm3 Absolute Eos (Manual) 0.53 H (0.02-0.50) K/mm3 Platelet Estimate Adequate (Adequate) % Immature Plt Fraction 5.4 (0.9-11.2) % Schistocytes None seen Sodium 133 L (137-145) mmol/L Potassium 3.7 (3.4-5.0) mmol/L Chloride 92 L (98-107) mmol/L Carbon Dioxide 27 (22-30) mmol/L Anion Gap 14 H (4-12) mmol/L BUN 19 H (7-17) mg/dL Creatinine 1.13 H (0.7-1.0) mg/dL Estim Creat Clear Calc 47 ml/min Estimated GFR 51 L (59 - ) Glucose 370 H (65-110) mg/dL POC Capillary Glucose 236 H (65-105) mg/dl Hemoglobin A1c 6.2 H (<5.7) % Calcium 9.7 (8.4-10.2) mg/dL Total Bilirubin 1.1 (0.2-1.3) mg/dL AST 29 (14-36) U/L ALT 14 (6-35) U/L Alkaline Phosphatase 60 (38-126) U/L Total Protein 8.7 H (6.3-8.2) g/dL Albumin 4.5 (3.5-5.1) g/dL Lipase 11 L (23-300) U/L Influenza A (RT-PCR) (Negative) Influenza B (RT-PCR) (Negative) RSV (RT-PCR) (Negative) SARS-CoV-2 RNA (RT-PCR) (Negative) 05/27/25 Range/Units 18:06 WBC (4.5-10.0) K/mm3 RBC (4.2-5.4) M/mm3 Hgb (12.0-15.0) g/dL Hct (37.0-47.0) % MCV (80-100) fl MCH (26-34) pg MCHC (32-36) g/dl RDW (11.5-14.5) % Plt Count (150-375) k/mm3 MPV (7.4-10.4) fl Immature Gran % (Auto) Neut % (Auto) Lymph % (Auto) Pitkin % (Auto) Eos % (Auto) Baso % (Auto) Lymph # (Auto) Pitkin # (Auto) Eos # (Auto) Baso # (Auto) Abs Immat Gran (auto) Absolute Neuts (auto) Absolute Nucleated RBC Total Counted Neutrophils % (Manual) (46-73) % Band Neutrophils % (0-6) % Lymphocytes % (Manual) (18-44) % Monocytes % (Manual) (3-9) % Eosinophils % (Manual) (0-4) % Nucleated RBC % Abs Neuts (Manual) (1.3-6.7) K/mm3 Abs Lymphs (Manual) (1.1-4.5) K/mm3 Abs Monocytes (Manual) (0.1-0.90) K/mm3 Absolute Eos (Manual) (0.02-0.50) K/mm3 Platelet Estimate (Adequate) % Immature Plt Fraction (0.9-11.2) % Schistocytes Sodium (137-145) mmol/L Potassium (3.4-5.0) mmol/L Chloride (98-107) mmol/L Carbon Dioxide (22-30) mmol/L Anion Gap (4-12) mmol/L BUN (7-17) mg/dL Creatinine (0.7-1.0) mg/dL Estim Creat Clear Calc ml/min Estimated GFR (59 - ) Glucose (65-110) mg/dL POC Capillary Glucose (65-105) mg/dl Hemoglobin A1c (<5.7) % Calcium (8.4-10.2) mg/dL Total Bilirubin (0.2-1.3) mg/dL AST (14-36) U/L ALT (6-35) U/L Alkaline Phosphatase (38-126) U/L Total Protein (6.3-8.2) g/dL Albumin (3.5-5.1) g/dL Lipase (23-300) U/L Influenza A (RT-PCR) Negative (Negative) Influenza B (RT-PCR) Negative (Negative) RSV (RT-PCR) Negative (Negative) SARS-CoV-2 RNA (RT-PCR) Negative (Negative) Imaging Data Radiologist's impression: Impressions Abdomen/Pelvis CT 05/27/25 18:02 IMPRESSION: No acute abnormality is noted in the abdomen and pelvis. Small hiatal hernia with reflux. Thickening of the gastric wall may be either due to under distention versus gastritis. Right pelvic kidney is unremarkable. Right kidney is absent. Left kidney is atrophied. All CT scans at this facility are performed using low dose modulation techniques as appropriate to perform exam including the following: automated exposure control; use of iterative reconstruction technique; adjustment of the mA and/or kV according to patient size (this includes techniques or standardized protocols for targeted exams where dose is matched to indication/reason for exam). Critical Care Time Critical Care Time Critical Care Time: No Discharge Plan Discharge Clinical Impression: Gastroenteritis, Intractable vomiting Patient Disposition: Still a Patient Condition: Stable
[2025-05-27 16:03] LABS: Band Neutrophils Percent 7 % (0-6); Eosinophils Absolute Manual 0.53 K/mm3 (0.02-0.50); Eosinophils Percent Manual 5 % (0-4); Lymphocytes Absolute Manual 1.80 K/mm3 (1.1-4.5); Lymphocytes Percent Manual 17 % (18-44); Monocytes Absolute Manual 0.95 K/mm3 (0.1-0.90); Monocytes Percent Manual 9 % (3-9); Neutrophils Absolute Manual 7.31 K/mm3 (1.3-6.7); Neutrophils Percent Manual 62 % (46-73); Schistocytes None Seen; Total Cells Counted 100
--- OUTSIDE RECORDS SUMMARY | 2025-05-27 16:05 | XMS_ITS | Encounter Summary ---
Author Organization [facility] Address [address] [place] [address] Care Team Providers Care Mixer [employer] Food Products Name Role Phone Ramon Sylvester MD Primary Care Provider [phone] Ramon Sylvester MD Unavailable [phone] Encounter Details Date Type Department Care Team (Late st Contact Info) Description 12/11/2017 [facility] Outpatient Visit [facility] [address] [place] [address] [place] [address] [address] Social History Tobacco Use Types [...] on filedocumented in this encounter Care Teams Mixer [employer] Food Products Relationship Specialty Start Date End Date Ramon Sylvester MD PCP - General Internal Medicine 10/19/16 Ramon Sylvester MD Internal Medicine 10/19/16 documented as of this encounter
--- OUTSIDE RECORDS SUMMARY | 2025-05-27 16:05 | XMS_ITS ---
Author Organization [facility] Address [address] [place] [address] Care Team Providers Care Vehicle Window Tinter Name Role Phone Ramon Sylvester MD Primary Care Provider Burak Blue MD Unavailable [phone] Juana Jimenez RN Unavailable Sylwia García MD Unavailable Igor Yeager DO Unavailable Cristina Boyer RN Unavailable Cyn Fang NP Unavailable Gavi Cervantes NP Unavailable Active Problems Patient Care Coordination No te Formatting of this note migh t be different from the original. Lab: [facility]- [phone] Standing Orders q-monthly FK, q3-HgbA1C. Exp. 12/14/25 Home Health: [facility] Home Care Local Pharmacy:[facility] [...] months and has had multiple visit at [facility] in [place] with multiple abnormal urinalyses and recent cultures [...] home) Assessment & Plan (06/25/2023 3:24 PM NUCLEAR LOGGING ENGINEER): Continue Ambien Assessment & Plan (02/24/2023 2:03 AM CDT): Cont home ambien PRN, reduce 10mg -> 5mg Liver lesion, right lobe 10/06/2022 [facility] current use of insulin 06/07/2022 Prolonged Q-T [...] hypoglycemia Assessment & Plan (08/08/2021 3:28 PM NUCLEAR LOGGING ENGINEER): -Affects post meal glucose readings -Closely monitor [...] 3:25 PM CDT): S/p right nephrectomy of [place] right kidney. POD1 N/V and Abd pain. [...] glucoses. Assessment & Plan (06/07/2022 5:24 PM NUCLEAR LOGGING ENGINEER): This affects her ability to see a [...] Stable. Assessment & Plan (06/03/2023 5:34 AM NUCLEAR LOGGING ENGINEER): Previous history of smoking. - Continue home inhalers and singulair. Essential hypertension 11/15/2019 Assessment & Plan (11/17/2024 3:59 PM CDT): BP at target Assessment & Plan (06/03/2023 5:41 AM NUCLEAR LOGGING ENGINEER): Hold amlodipine for soft blood pressures. Assessment [...] 11/15/2019 Assessment & Plan (06/03/2023 5:43 AM NUCLEAR LOGGING ENGINEER): Continue home statin. Assessment & Plan (02/24/2023 2:01 AM CDT): Cont home atorva 20mg. Assessment & Plan (11/05/2022 9:21 AM CDT): On atorvastatin 20mg. Optimize glycemic control. 10/2022- TG 173, HDL 66, LDL 66 Assessment & Plan (06/07/2022 5:29 PM NUCLEAR LOGGING ENGINEER): Continue statin therapy (atorvastatin 20mg) and optimize [...] stable. Assessment & Plan (06/03/2023 5:34 AM NUCLEAR LOGGING ENGINEER): - Continue home sertraline, nightly mirtazapine and [...] transplant evaluated pt in ED, following as custom decorating consultant -per recs, will change envarsus to [...] 11/17/2018 Assessment & Plan (06/25/2023 3:25 PM NUCLEAR LOGGING ENGINEER): Continue sertraline and Xanax Assessment & Plan (06/03/2023 5:33 AM NUCLEAR LOGGING ENGINEER): Continue home xanax PRN Assessment & Plan [...] Monitor Assessment & Plan (06/03/2023 5:41 AM NUCLEAR LOGGING ENGINEER): At home on glargine 28 units nightly [...] diabetes. Assessment & Plan (06/07/2022 5:38 PM NUCLEAR LOGGING ENGINEER): Hemoglobin A1c increased to 8.5% on 05/22/2022. [...] insulin. Assessment & Plan (08/08/2021 3:28 PM NUCLEAR LOGGING ENGINEER): -Currently taking MDI and using Lynda -A1C [...] control. Assessment & Plan (06/07/2022 5:25 PM NUCLEAR LOGGING ENGINEER): Managed by Dr. Bhatt. Needs optimal glycemic control. Assessment & Plan (03/23/2022 9:06 AM CDT): Managed by Dr. Bhatt. Needs optimal glycemic control Assessment & Plan (07/11/2020 5:49 PM NUCLEAR LOGGING ENGINEER): Resolved following course of antiviral therapy. 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 Assessment & Plan (06/07/2022 5:25 PM NUCLEAR LOGGING ENGINEER): Taking daily immunosuppressants which complicate glycemic management. Assessment & Plan (08/06/2021 3:09 PM NUCLEAR LOGGING ENGINEER): -[facility] use of immunosuppressants and steroids complicates diabetes [...] has. I encouraged her to see an chemical test engineer again just to make sure that she does or does not need ongoing follow-up Assessment & Plan (08/06/2021 3:07 PM NUCLEAR LOGGING ENGINEER): -Patient is legally blind -CGM allows for [...] 06/25/2023 Assessment & Plan (06/03/2023 5:41 AM NUCLEAR LOGGING ENGINEER): Patient presenting with nausea and vomiting that [...] 06/25/2023 Assessment & Plan (06/03/2023 5:45 AM NUCLEAR LOGGING ENGINEER): Presenting with 1 week history of [place] [...] hypoglycemia. Assessment & Plan (06/07/2022 5:23 PM NUCLEAR LOGGING ENGINEER): Now improved, but still need to minimize risk of hypoglycemia. Assessment & Plan (03/23/2022 9:03 AM CDT): Now improved, but still need to minimize risk of hypoglycemia Non-intractable vomiting 03/28/2021 Overview (03/28/2021): Added automatically from request for surgery [id number] Colon cancer screening 03/28/202104/19 Overview (03/28/2021): Added automatically from request for surgery [id number] Gastroparesis 02/23/2021 06/25/2023 Assessment & Plan (02/20/2023 [...] 02/23/2021 Assessment & Plan (08/08/2021 3:29 PM NUCLEAR LOGGING ENGINEER): -BP today is 132/78 -Will continue same [...] or scopolamine patch. She does not meet [facility] criteria for use of palonosetron. -ordered [...] 08/03/2020 Assessment & Plan (08/03/2020 3:05 PM NUCLEAR LOGGING ENGINEER): Plan is to give Augmentin 875/125 b.i.d. [...]
--- OUTSIDE RECORDS SUMMARY | 2025-05-27 16:05 | XMS_ITS | Data Portability ---
Author Organization [place] - [facility] [employer], Main Office Address [address] [place] [address] Care Team Providers Care Strand Buncher Fine Wire Name Role Phone EMY CHANEY Primary Care Provider [phone] Assessment Encounter Date Assessment Date Assessment LastModified by Organization Details LastModified Time 01/28/2024 01/28/2024 This note is dictated and transcribed by [employer]. [employer] Mechanic variances may occur. Despite proofreading, typographical errors may occur. Occasional wrong-word or 'yohfy-s-dcvn' substitutions may have occurred due to the inherent limitations of voice recording. Read the chart carefully and recognize, using context, where substitutions have occurred. Not available 01/28/2024 16:22:17 02/04/2024 02/04/2024 This note is dictated and transcribed by [employer]. [employer] Mechanic variances may occur. Despite proofreading, typographical errors may occur. Occasional wrong-word or 'dpdnm-m-jvso' substitutions may have occurred due to the inherent limitations of voice recording. Read the chart carefully and recognize, using context, where substitutions have occurred. Not available 02/04/2024 10:05:41 05/05/2024 05/05/2024 This note is dictated and transcribed by [employer]. [employer] Mechanic variances may occur. Despite proofreading, typographical errors may occur. Occasional wrong-word or 'gsohp-b-eaqu' substitutions may have occurred due to the inherent limitations of voice recording. Read the chart carefully and recognize, using context, where substitutions have occurred. Not available 05/05/2024 15:16:03 09/23/2024 09/23/2024 This note is dictated and transcribed by [employer]. [employer] Mechanic variances may occur. Despite proofreading, typographical errors may occur. Occasional wrong-word or 'bynzr-c-aitv' substitutions may have occurred due to the [...] e 2 % topical cream 2024 025 [facility]/Pharmacy #[id number], [address], [place], [address], 5 15:26:59 ketoconazol e 2 % topical cream 2023 024 [facility]/Pharmacy #[id number], [address], [place], [address], 4 15:16:26 ketoconazol e 2 % topical cream 2023 024 [facility]/Pharmacy #[id number], [address], [place], [address], 4 10:06:13 Patient TargetsNo targets recorded. Patient InstructionsNo instructions recorded. Reason for Referral None Reported. Results Created Date Observation Date Name Description Value Unit Range Abnormal Flag Note LastModifiedBy Organization Detail LastModifiedTime 10/21/1910/21/2023 US, duple x, arter ial, lower extre mity, compl ete No observ ation record ed. [email or web address] [facility] ([facility]) [address] [place], [address], 10/21/2023 13:31:53 10/21/19 24 10/21/2023 (BIANCA) ankle brach ial index * No observ ation record ed. [email or web address] [facility] ([facility]) [address] [place], [address], 10/21/2023 13:31:53 Result Notes None recorded. Problems Name Problem SNOMED Code Status Onset Date Resolution Date Notes Provider Name and Address Organization Details Recorded Time Tobacco user 184369817 Active Not Available [facility] 3 17:12:38 Disorder of shoulder 140691096 Active Not Available [facility] 3 17:12:38 Chronic obstructive pulmonary disease 63733945 Active Not Available [facility] 3 17:12:38 Bipolar disorder 85714046 Active Not Available [facility] 3 17:12:38 Backache 909550840 Active Not Available [facility] 3 17:12:38 Insomnia 289424928 Active Not Available [facility] 3 17:12:38 Raynaud's disease 533195680 Active Not Available [facility] 3 17:12:38 Blindness of one eye Active Not Available [facility] 3 17:12:38 Gastroesophag eal reflux disease 091749604 Active Not Available [facility] 3 17:12:39 Edema 101898604 Active Not Available [facility] 3 17:12:39 Low back pain 966510442 Active Not Available [facility] 3 17:12:39 Enthesopathy of hip region 16687316 Active Not Available [facility] 3 17:12:39 Osteoarthriti s 605673935 Active Not Available [facility] 3 17:12:39 Calcium deposits in tendon 438334082 Active Not Available [facility] 3 17:12:40 Pain of shoulder region 70612241 Active Not Available [facility] 3 17:12:40 Hyperlipidemi a 59322613 Active Not Available [facility] 3 17:12:40 Essential hypertension 48606004 Active Not Available [facility] 3 17:12:40 Diabetes mellitus 88132992 Active Not Available [facility] 3 17:12:40 Smoker 74889843 Active Not Available [facility] 3 17:12:40 Hyperglycemia 52802268 Active Not Available [facility] 3 17:12:40 Neck pain 97262422 Active Not Available [facility] 3 17:12:40 Metatarsalgia 19821659 Active 2018 Not Available [facility] 3 17:12:38 Hypercholeste rolemia 71573957 Active 2018 Not Available [facility] 3 17:12:38 Heartburn 50859539 Active 2018 Not Available [facility] 3 17:12:38 Asthma 440652463 Active 2018 Not Available [facility] 3 17:12:38 Fibromyalgia 718719135 Active 2018 Not Available [facility] 3 17:12:38 Bronchitis 63985555 Active 2018 Not Available [facility] 3 17:12:39 Depressive disorder 09873200 Active 2018 Not Available [facility] 3 17:12:39 Arthritis 2990544 Active 2018 Not Available [facility] 3 17:12:39 Sleep disorder 49564084 Active 2018 Not Available [facility] 3 17:12:39 Seasonal allergy 348498034 Active 2018 Not Available [facility] 3 17:12:40 Anxiety 57598402 Active 2018 Not Available [facility] 3 17:12:40 Gout 47400845 Active 2018 Not Available [facility] 3 17:12:41 Fissure in skin 37285546 Active 2018 Not Available [facility] 3 17:12:41 Diabetic foot ulcer 519123840 Active 2019 Not Available [facility] 3 17:12:39 Diabetic foot ulcer 158638547 Active 2019 Not Available [facility] 3 17:12:39 Noncompliance with treatment 1413379 Active 2019 Not Available [facility] 3 17:12:40 Environmental allergy 647456826 Active 2023 RAJNI Silva S [facility] 4 09:31:24 Anemia 220578926 Active 2023 Zoe Campbell null, [facility] 4 09:31:39 Dialysis care Active 2023 Zoe Campbell null, [facility] 4 09:32:07 Ear problem 562800810 Active 2023 Zoe Campbell null, [facility] 4 09:32:17 Disorder of eye 021964235 Active 2023 Zoe Campbell null, [facility] 4 09:32:26 Headache 03134670 Active 2023 Zoe Campbell null, [facility] 4 09:32:53 Disease of liver 734495373 Active 2023 Zoe Campbell null, [facility] 4 09:33:01 Kidney disease 16464469 Active 2023 Zoe Campbell null, [facility] 4 09:33:25 Migraine 73160339 Active 2023 Zoe Campbell null, [facility] 4 09:33:33 Peripheral vascular disease 888470166 Active 2023 Michael Mccrary DPM [address], [address], [place], [address] , [facility] 4 09:45:59 Cigarette smoker 21129593 Active 2023 Michael Mccrary DPM [address], [address], [place], [address] , [facility] 4 09:46:05 Onychomycosis of toenails 600165096 Active 2023 Michael Mccrary DPM [address], [place], [address] , [facility] 4 09:47:01 Dystrophia unguium 96994862 Active 2023 Michael Mccrary DPM [address], [address], [place], [address] , [employer] 4 09:47:10 Diabetic peripheral neuropathy 571623922 Active 2023 Michael Mccrary DPM [address], [address], [place], [address] , [employer] 4 09:47:27 Notes:back/neck problems, di alysis, ear [...] Mccrary DPM [address], [place], [address], [employer] 09/23/2024 15:26:25 01/28/20 24 Toenail avulsion completed Michael Mccrary DPM [address], [address], [place], [address], [employer] 01/28/2024 16:22:30 10/17/19 24 Nail Debridement completed Michael Mccrary DPM [address], [address], [place], [address], [employer] 10/17/2023 09:56:54 Appendectomy completed Zoe Campbell [employer] 10/17/2023 09:35:32 Hysterectomy completed Zoe Campbell [employer] [facility] [employer] 10/17/2023 09:35:39 transplant of kidney completed Zoe Campbell [employer] [facility] [employer] 10/17/2023 09:35:51 total nephrectomy completed Zoe Dodd [employer] [facility] [employer] 10/17/2023 09:36:56 Imaging Results None recorded. Procedure Notes None recorded. Medical Equipment None Reported. Allergies Allergen ID Allergen Name Allergen Category Reaction Reaction Severity Criticality Documentation Date Start Date Code Code System Note Provider Name and Address Organization Details Recorded Time 55042 tetracycl ine medicatio n vomiting Not available Not available 09/26/2022 27117 RxNorm Not Available [facility] 3 17:13:27 54951 morphine medicatio n Not available Not available Not available 09/26/2022 7052 RxNorm sever e itchi ng Not Available [facility] 3 17:13:27 71768 metformin medicatio n diarrhea Not available Not available 09/26/2022 6809 RxNorm Not Available [facility] 3 17:13:28 80273 cyclobenz aprine hydrochlo ride medicatio n hives Not available Not available 09/26/2022 07057 RxNorm Not Available [facility] 3 17:13:28 62666 codeine medicatio n Not available Not available Not available 09/26/2022 2670 RxNorm sever e itchi ng Not Available [facility] 3 17:13:28 Medications Name Sig Start Date [...] 1 TABLET TWICE DAILY WITH A SNACK 03/21 /2024 completed Not Available Not Available Not Available [...] Not Available No t Available Fluzone Quad 9619-6093 60 mcg (15 mcg x 4)/0.5 mL IM suspensio n active Not Available Not Available Not Available Envarsus XR 1 mg tablet,ex tended release TAKE 3 TABLETS BY MOUTH FRONT DESK AGENT BEFORE BREAKFAS T DO NOT TAKE ON 11/28, THEN RESUME SAT 5/4 active Not Available Not Available No t [...] Available No t Available [employer] Lynda [address] [place] active Not Available Not Available Not Available [...] Body mass index (BMI) Body weight Systolic And Diastolic Provider Name and Address Organization Details Last Updated DateTime 157.48 cm 97.8 [degF] 16 /min 97 % 97 % 78 /min 26.5 kg/m2 91084.8 9 g 117/63 mm[Hg] Debbie Pineda [facility] [employer] 15:06:38 Date Recorded Body height Provider Name an d Address Organization Details Last Updated DateTime 11/14/2023 157.48 cm Johanna Cruz [employer] [facility] [employer] [facility] 11/14/2023 17:25:13 Date Recorded Body height Heart rate Systolic And Diastolic Provider Name and Address Organization Details Last Updated DateTime 01/28/2024 157.48 cm 100 /min 167/100 mm[Hg] Zoe Campbell [employer] [facility] [employer] 01/28/2024 16:02:53 Date Recorded Body height Heart rate Systolic And Diastolic Provider Name and Address Organization Details Last Updated DateTime 02/04/2024 157.48 cm 91 /min 138/86 mm[Hg] Zoe Campbell [facility] [employer] 02/04/2024 09:38:23 Date Recorded Body height Body mass index (BMI) Body weight Heart rate Respiratory rate Oxygen saturation Oxygen saturation in Arterial blood by Pulse oximetry Systolic And Diastolic Provider Name and Address Organization Details Last Updated DateTime 4 157.48 cm 26.5 kg/m2 63437.8 9 g 75 /min 14 /min 99 % 99 % 104/66 mm[Hg] Johanna Cruz [facility] [employer] [facility] 4 14:49:45 Social History Question Answer Notes LastModified by [employer] Details LastModified Time Tobacco Smoking Status Former Smoker Zoe Stanleylyubov morales, [facility] [employer] [facility] 10/17/2023 09:35:12 When Did You Quit Smoking? 6-10yearssin celastcigare tte Information not available 10/17/2023 How Many Years Have You Smoked Tobacco? 12 Information not available 10/17/2023 Sex: Unknown Functional Status Question Answer Note LastModified by [employer] Details LastModified Time What is your level of alcohol consumption? None Information not available 10/17/2023 What is your occupation? [id number] Information not available 09/26/2022 Mental Status [...] Notes:diabetes - grandmother Medical History Condition Response ALLERGIES/HAYFEVER Y HIGH CHOLESTEROL / HYPERLIPIDEMIA Y BACK / NECK PROBLEMS Y DEPRESSION (INCLUDING POST ) Y FIBROMYALGIA Y URINARY/BLADDER/KIDNEY PROBLEMS Y ARTHRITIS Y USE OF BLOOD THINNERS Y DIABETES, TYPE Y HEARTBURN / REFLUX Y HEPATITIS / LIVER DISEASE Y USE OF NSAIDS Y GOUT Y HEADACHES/MIGRAINES Y KIDNEY DISEASE Y ANXIETY DISORDER Y ANEMIA/BLOOD DISORDER Y Gynecological HistoryNo gynecological history recorded. Obstetrics History GPAL:G 0 P 0 0 0 0 Immunizations Vaccine Type Date Status Note Provider Nam e and Address Organization Details Recorded Time Pneumococcal conjugate PCV 13 5 completed Not Available [employer] 09/26/2022 17:13:26 Influenza, high-dose, trivalent, PF 5 completed Not Available [facility] 09/26/2022 17:13:26 Past Encounters Encounter ID Performer Location Encounter Start Date Encounter Closed Date Diagnosis/Indication Diagnosis SNOMED-CT Code Diagnosis ICD10 Code Diagnosis IMO Codes Diagnosis Note [id number] Michael Mccrary DPM [facility] [address] [place] [address] 10/17/2023 09:25:21 10/17/2023 10:14:37 Peripheral vascular disease 606975446 I73.9 obtain noninvasiv e vascular studies for possible procedure Cigarette smoker 0044921 7 F17.210 Recommend discontinu e smoking, patient states she is tryingrevi ewed side effects of smoking Onychomyco sis of toenails 104984026 B35.1 both great toenails Dystrophia unguium 17379 009 L60.3 nails debrided without incident 1 through 10 Diabetic p eripheral neuropathy 264907756 E11.40 Patient educated on neuropathy , diabetes, diabetic diet, and daily foot exams. Patient is to check feet daily for new wounds, blisters, redness to prevent infection and ulceration s to the feet. Patient will return to clinic in 3 months for diabetic foot workup. [id number] Michael Mccrary DPM [facility] [address] [address] 11/14/2023 17:21:47 11/18/2023 10:15:04 Diabetes mellitus 23876015 E11.9 continue diabetic control per PCP recommenda tions Cigarette smoker 6330097 7 F17.210 Recommend discontinu e smoking, patient states she is tryingrevi ewed side effects of smoking Peripheral vascular disease 361454974 I73.9 vascular testing reviewed with the patientrec annalise daily exercisere peat studies in 1 yearrecomm end discontinu e smoking Onychomyco sis of toenails 145578939 B35.1 both great toenails- planned for total nail avulsionsc hedule procedure [id number] Michael Mccrary DPM [facility] [place] [address] [place] [phone] 01/28/2024 15:58:49 01/31/2024 09:55:54 Onychomycosis of toenails 903935792 B35.1 right great toenailtot al nail avulsion performed todayWound care instructio ns givenMonit or for signs of infection at present seek medical attention immediatel yDressing instructio ns reviewed with the patientFol low-up 1 week [id number] Michael Mccrary DPM [facility] [address] [address] 02/04/2024 09:25:49 02/04/2024 11:41:31 Onychomycosis of toenails 826444479 B35.1 right great toenailtot al nail avulsion healingcon tinue daily wound care until healedWoun d care instructio ns givenMonit or for signs of infection at present seek medical attention immediatel yDressing instructio sabas reviewed with the patientFol low-up 3 months [id number] Michael Mccrary DPM [facility] [address] [address] 05/05/2024 14:32:35 05/06/2024 12:50:19 Onychomycosis of toenails 695166065 B35.1 right great toenailtot al nail avulsion healedcont inue ketoconazo le dailynail debrided Follow-up 2-3months [id number] Michael Mccrary DPM [facility] [address] [place] [address] 09/23/2024 14:45:22 09/23/2024 15:53:44 Onychomycosis of toenails 519634930 B35.1 right great toenail- Resolvedto enail fungus left great toenailcon tinue ketoconazo le dailynail debridedpl anned total nail avulsion of left great toenail when patient is availableF ollow-up 2-3months Health Concerns Section Related Observation LastModified by Organization Detai ls LastModified Time None Recorded Concern Status LastModified by Organization Details LastModified Time None Recorded Advance Directives Directive None Recorded Payers Insurance Date Sequence Insurance Name Policy Number Policy Duncan Covered Member ID Duncan Member ID Guarantor Name 05/05/2024 1 [facility] (MEDICARE REPLACEMENT/A DVANTAGE - HMO) [id number] Juaquin Rey [id number] Juaquin Rey 09/20/2024 1 [facility] (MEDICARE REPLACEMENT/A DVANTAGE - PPO) [id number] Juaquin Esquivelss [id number] Juaquin Rey 05/05/2024 1 [place] Juaquin Esquivelss [id number] Juaquin Krissy 05/05/2024 1 [place] [id number] Juaquin Rey [id number] Juaquin Rey Notes Date Note Type Note Provider Name [...] pedal complaints. Michael Mccrary DPM [address] [address], [place], [address], [employer] 11/18/2023 09:19:43 01/28/2024 text/html . Patient is a 48-year-old female who returns the office for follow-up on onychomycosis of the right great toenail. Patient states overall she continues have white discoloration under the right great toe. Patient states that the nail is thickened and painful. Patient denies any treatment for this condition. Patient denies any other complaints. Michael Mccrary DPM [address] [address], [place], [address], [employer] 01/29/2024 14:01:52 02/04/2024 text/html . Patient is [...] complaints. Michael Mccrary DPM [address], [facility] [address], [place], [address], [employer] [facility] 02/04/2024 10:06:26 05/05/2024 text/html . Patient is [...] complaints. Michael Mccrary DPM [address], [facility], [place], [address], [employer] [facility] [employer] 05/05/2024 15:17:20 09/23/2024 text/html . Patient is [...] complaints. Michael Mccrary DPM [address], [facility], [place], [address], [employer] [facility] 09/23/2024 15:27:25 OBGyn Episode No OBEpisode recorded.
--- OUTSIDE RECORDS SUMMARY | 2025-05-27 16:05 | XMS_ITS | Encounter Summary ---
Author Organization [facility] Address [address] [place] [address] Phone Care Team Providers Care Senior Service Aide Name Role Phone Ramon Sylvester MD Primary Care Provider [phone] Burak Blue MD Unavailable [phone] Juana Jimenez RN Unavailable Sylwia García MD Unavailable Igor Yeager DO Unavailable [phone] Cristina Boyer RN Unavailable Cyn Fang NP Unavailable Gavi Cervantes NP Unavailable Encounter Details Date Type Department Care Team (Late st Contact Info) Description 05/26/2025 Orders Only [facility] Medicine Nephrology [address] [facility] [address] [place] [address] [place] [address] Jose Rafael Ramos MD [address] [place] [address] Social History Tobacco Use Types [...] often do you attend chur ch or hoahaoism services? Patient unable to answer 11/28/2023 Do you belong to any clubs o r organizations such as oriental orthodox groups, unions, fraternal or athletic groups, or [...] place to sleep or slept in a intermediate (including now)? Patient unable to answer 11/28/2023 Personal Safety Answer Date Recorded Have you ever been in or are you currently in a harmful physical or emotional relationship or is someone making you feel afraid or unsafe? 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 Not on file Not on file documented as of this encounter Plan of Treatment Scheduled Procedures Name Priority Associated Diagnoses Date/Ti me TRANSPLANT KIDNEY ESRD (end stage renal disease) (HCC) documented as of this encounter Procedures Procedure Name Priority Date/Time Associated Diagnosis Comments TACROLIMUS, HIGHLY SENSITIVE, LC/MS/MS Routine 05/26/2025 8:29 AM CDT COPY(IES) SENT TO: Routine 05/26/2025 8: 29 AM CDT HEPATIC FUNCTION PANEL, SERUM Routine 05/26/2025 8:29 AM CDT CBC WITH AUTO DIFFERENTIAL Routine 05/26/2025 8:29 AM CDT HEMOGLOBIN A1C Routine 05/26/2025 8:29 AM CDT RENAL FUNCTION PANEL Routine 05/26/2025 8:29 AM CDT LIPID PANEL Routine 05/26/2025 8:29 AM CDT documented in this encounter Results * Tacrolimus, Highly Sensitive, LC/MS/MS (05/26/2025 8:29 AM CDT) Tacrolimus, Highly Sensitive, LC/MS/MS 7.5 mcg/L [facility] Comment: No definitive therapeutic or toxic ranges have been established. Optimal blood drug levels are influenced by type of transplant, patient response, time post- transplant, co-administration of other drugs, and drug formulation. The following trough range is a suggested guideline: 5.0-20.0 mcg/L. 05/26/2025 8:29 AM CDT 05/26/2025 8:29 AM CDT Narrative [facility] - 05/27/2025 2:13 PM CDT PAE FASTING:YES FASTING: YES us Jose Rafael Ramos MD LAB BLOOD ORDERABL ES Final Result [facility] [address] [place] [address] * (ABNORMAL) Renal function panel (05/26/2025 8:29 AM CDT) Pathologist [facility] [place] Glucose 178(H) 65 - 99 mg/dL [facility] [...] 8:29 AM CDT Narrative [facility] - 05/27/2025 2:13 PM CDT PAE FASTING:YES FASTING: YES us Jose Rafael Ramos MD LAB BLOOD ORDERABL ES Final Result [facility] [address] [address] [place] [address] * (ABNORMAL) Hepatic Function Panel, Serum (05/26/2025 [...] 8:29 AM CDT Narrative [facility] - 05/27/2025 2:13 PM CDT PAE FASTING:YES FASTING: YES us Jose Rafael Ramos MD LAB BLOOD ORDERABL ES Final Result [facility] [address] [place] [address] * (ABNORMAL) Lipid panel (05/26/2025 8:29 AM CDT) Pathologist [facility] [place] Cholesterol 167 <200 mg/dL [facility] [...] LDL-C. Von SS et al. ELISA. 2013;310(19): 3653-5760 (http://education.Calsys/faq/AYM605) Chol/HDL ratio 3.0 <5.0 (calc) [facility] Non-HDL, (LDL+VLDL) 112 <130 mg/dL (calc) [facility] Comment: For patients with diabetes plus 1 major ASCVD risk factor, treating to a non-HDL-C goal of <100 mg/dL (LDL-C of <70 mg/dL) is considered a therapeutic option. 05/26/2025 8:29 AM CDT 05/26/2025 8:29 AM CDT Narrative [facility] - 05/27/2025 2:13 PM CDT PAE FASTING:YES FASTING: YES Jose Rafael Ramos MD LAB BLOOD ORDERABL ES Final Result [facility] [address] [address] [address] * (ABNORMAL) CBC with auto differential (05/26/2025 [...] 8:29 AM CDT Narrative [facility] - 05/27/2025 2:13 PM CDT PAE FASTING:YES FASTING: YES JoseR afael Ramos MD LAB BLOOD ORDERABL ES Final Result Performing Organization Address City/[facility]/ZIP Co de Phone Number [facility] [address] [place] [address] * (ABNORMAL) Hemoglobin A1c (05/26/2025 8:29 AM CDT) Hgb A1C 6.6(H) <5.7 % of total Hgb [facility] Comment: For someone without known [...] 8:29 AM CDT Narrative [facility] - 05/27/2025 2:13 PM CDT PAE FASTING:YES FASTING: YES Jose Rafael Ramos MD LAB BLOOD ORDERABL ES Final Result Performing Organization Address City/[facility]/ZIP Co de Phone Number [facility] [address] [place] [address] * COPY(IES) SENT TO: (05/26/2025 8:29 AM CDT) COPY(IES) SENT TO: [facility] Comment: [facility] [address] [place] [address] 05/26/2025 8:29 AM CDT 05/26/2025 8:29 AM CDT Narrative [facility] - 05/27/2025 2:13 PM CDT PAE FASTING:YES FASTING: YES us Jose Rafael Ramos MD LAB BLOOD ORDERABL ES Final Result [facility] documented in this encounter Visit Diagnoses Not on filedocumented in this encounter Care Teams Senior Service Aide Relationship Specialty Start Date End Date Ramon Sylvester MD PCP - General 08/31/16 Burak Blue MD Consulting Physician Nephrology 04/21/18 Juana Jimenez RN [place] 03/09/19 Sylwia García MD Referring Physician Endocrinology Diabetes & Metabolism 03/21/20 Igor Yeager DO Consulting Physician Urology 04/27/20 Cristina Boyer, MARY [address] [address] Secondary Kidney Coordinator Transplant 08/25/20 Cyn Fang NP [address] [address] Nurse Practitioner Nurse Practitioner 12/06/21 [place] [address] [place] [address] ENDOCRINOLOGY, [facility] [address] [place] [address] Nurse Practitioner Family Medicine 01/06/25 documented as of this encounter
--- OUTSIDE RECORDS SUMMARY | 2025-05-27 16:05 | XMS_ITS | Clinical Summary ---
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 Lab: [facility]- [phone] Standing Orders q-monthly FK, q3-HgbA1C. Exp. 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 POD1 N/V and Abd pain. [...] glucoses. Assessment & Plan (06/07/2022 5:24 PM CHEMICAL EQUIPMENT REPAIRER): This affects her ability to see a [...] Stable. Assessment & Plan (06/03/2023 5:34 AM CHEMICAL EQUIPMENT REPAIRER): Previous history of smoking. - Continue home inhalers and singulair. Essential hypertension 11/15/2019 Assessment & Plan (11/17/2024 3:59 PM CDT): BP at target Assessment & Plan (06/03/2023 5:41 AM CHEMICAL EQUIPMENT REPAIRER): Hold amlodipine for soft blood pressures. Assessment [...] 11/15/2019 Assessment & Plan (06/03/2023 5:43 AM CHEMICAL EQUIPMENT REPAIRER): Continue home statin. Assessment & Plan (02/24/2023 2:01 AM CDT): Cont home atorva 20mg. Assessment & Plan (11/05/2022 9:21 AM CDT): On atorvastatin 20mg. Optimize glycemic control. 10/2022- TG 173, HDL 66, LDL 66 Assessment & Plan (06/07/2022 5:29 PM CHEMICAL EQUIPMENT REPAIRER): Continue statin therapy (atorvastatin 20mg) and optimize [...] stable. 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 Assessment & Plan (06/07/2022 5:38 PM CHEMICAL EQUIPMENT REPAIRER): Hemoglobin A1c increased to 8.5% on 05/22/2022. [...] insulin. Assessment & Plan (08/08/2021 3:28 PM CHEMICAL EQUIPMENT REPAIRER): -Currently taking MDI and using Lynda -A1C [...] control. Assessment & Plan (06/07/2022 5:25 PM CHEMICAL EQUIPMENT REPAIRER): Managed by Dr. Bhatt. Needs optimal glycemic control. Assessment & Plan (03/23/2022 9:06 AM CDT): Managed by Dr. Bhatt. Needs optimal glycemic control Assessment & Plan (07/11/2020 5:49 PM CHEMICAL EQUIPMENT REPAIRER): Resolved following course of antiviral therapy. 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 Assessment & Plan (06/07/2022 5:25 PM CHEMICAL EQUIPMENT REPAIRER): Taking daily immunosuppressants which complicate glycemic management. Assessment & Plan (08/06/2021 3:09 PM CHEMICAL EQUIPMENT REPAIRER): -USP use of immunosuppressants and steroids complicates diabetes [...] has. I encouraged her to see an chiropractic neurologist again just to make sure that she does or does not need ongoing follow-up Assessment & Plan (08/06/2021 3:07 PM CHEMICAL EQUIPMENT REPAIRER): -Patient is legally blind -CGM allows for increase in safety as there is audile alarm for high and low blood sugars Resolved Problems Problem Noted Date Diagnosed Date Resolved Date Localized edema 01/22/2024 05/19/2025 Assessment & Plan (01/22/2024 4:11 PM CDT): Continue furosemide Ketosis 06/03/2023 06/25/2023 Assessment & Plan (06/03/2023 5:41 AM CHEMICAL EQUIPMENT REPAIRER): Patient presenting with nausea and vomiting that [...] 06/25/2023 Assessment & Plan (06/03/2023 5:45 AM CHEMICAL EQUIPMENT REPAIRER): Presenting with 1 week history of UT [...] hypoglycemia. Assessment & Plan (06/07/2022 5:23 PM CHEMICAL EQUIPMENT REPAIRER): Now improved, but still need to minimize risk of hypoglycemia. Assessment & Plan (03/23/2022 9:03 AM CDT): Now improved, but still need to minimize risk of hypoglycemia Non-intractable vomiting 03/28/2021 Overview (03/28/2021): Added automatically from request for surgery [id number] Colon cancer screening 03/28/202104/19 Overview (03/28/2021): Added automatically from request for surgery [id number] Gastroparesis 02/23/2021 06/25/2023 Assessment & Plan (02/20/2023 [...] 02/23/2021 Assessment & Plan (08/08/2021 3:29 PM CHEMICAL EQUIPMENT REPAIRER): -BP today is 132/78 -Will continue same [...] 08/03/2020 Assessment & Plan (08/03/2020 3:05 PM CHEMICAL EQUIPMENT REPAIRER): Plan is to give Augmentin 875/125 b.i.d. [...] Department Care Team Description 05/26/2025 Orders Only [facility] Nephrology [address] [place] [address] [place] [address] Jose Raafel Ramos MD 05/19/2025 12:30 PM CDT Office Visit [facility] [address] [place] [address] Marlee Mckeon NP Anxiety and depression (Primary Dx); Gastroesophageal reflux disease, unspecified whether esophagitis present; Mild intermittent asthma without complication 05/17/2025 Telephone [facility] Endocrinology Metabolism and Lipid [address] 13[address] [place] [address] [place] [address] Patricia Ravi, chaplaincy Mounjaro dosage 04/08/2025 Lab [facility] Transplant Kidney [address] [phone] [place] [address] America Rosa MD 04/06/2025 Telephone [facility] Transplant Kidney [address] [phone] [place] [address] Juana Jimenez RN 04/05/2025 2:00 PM CDT Lab [facility] Advanced Medicine ([facility]) [address] [place] [address] Encounter for aftercare following kidney transplant 04/05/2025 10:45 AM CDT Office Visit [facility] Nephrology [address] [place] [address] [place] [address] Lainey Mooney NP Encounter for aftercare following kidney transplant (Primary Dx); Kidney replaced by transplant; Encounter for long-term (current) use of high-risk medication; Hypertension, unspecified type; USP current use of immunosuppressive drug; High risk medication use 03/31/2025 Results Follow-Up [facility] [address] [place] [address] Ramon Chaney MD US Arterial Doppler Lower Extremity Bilateral 03/26/2025 3:30 PM CDT Office Visit [facility] Endocrinology Metabolism and Lipid 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 [place] [address] [place] [address] Claudication 03/23/2025 3:15 PM CDT Office Visit [facility] [address] [place] [address] Ramon Chaney MD Claudication (Primary Dx); Renal transplant recipient; Type 1 diabetes mellitus with other specified complication; Essential hypertension 03/18/2025 3:00 PM CDT Clinical Support [facility] Endocrinology Metabolism and Lipid [address] [place] [address] [place] [address] Type 1 diabetes mellitus with other specified complication (Primary Dx) 03/16/2025 Orders Only [facility] Medicine Nephrology [address] [place] [address] [place] [address] Jose Rafael Ramos MD 03/10/2025 Telephone [facility] Transplant Kidney [address] [phone] [place] [address] Francheska Esteves 03/09/2025 Telephone [facility] Transplant Kidney [address] [phone] [place] [address] Mirtha Taylor 03/08/2025 Telephone [facility] Transplant Kidney [address] Mail[address] [phone] [place] [address] Mirtha Taylor from Last 3 Months Immunizations Immunization Administration Dates Next Due COVID-19 mRNA (AB [employer]) 0.3 m L (30 mcg) vaccine (12 [...] drink = 0.6 oz pur e alcohol) [facility] Utilities Answer Date Recorded In the past 12 months has th e [employer], gas, oil, or water [employer] threatened to shut off services in your [...] answer 11/28/2023 How often do you attend [facility] or evangelical services? Patient unable to answer 11/28/2023 Do you belong to any clubs o r organizations such as advent groups, unions, fraternal or athletic groups, or [...] to sleep or slept in a senior care (including now)? Patient unable to answer 11/28/2023 Personal Safety Answer Date Recorded Have you ever been in or are you currently in a harmful physical or emotional relationship or is someone making you feel afraid or unsafe? 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 Not on file Not [...] history exists Medical Devices Explanted Type Area Shell Machine Operator Device Identifier Shelf Expiration Date Model / Serial / Lot Circon-Surgit ek [id number] 6fr 20cm 100cm 1 Step Insert Push Catheter [place] Suture - [id number] Implanted:Qty : 1 on 03/09/2019 by Tommie Cortes MD at [facility] Explanted:Qty : 1 on 04/06/2019 by Ted Farrell NP Stent Right: Ureter Circon-Surgitek [id number] 02/14/2023 [id number] / / [id number] Description:Transplanted Ure ter Procedures Procedure Name Priority Date/Time Associated Diagnosis Comments TACROLIMUS, HIGHLY SENSITIVE, LC/MS/MS Routine 05/26/2025 8:29 AM CDT RENAL FUNCTION [...] CELL-FREE DNA (CFDNA) Routine 04/05/2025 POCT GLUCOSE 25455 Routine 03/26/2025 3: 43 PM CDT Type [...] CREATININE RATIO, URINE Routine 07/14/2024 8:26 AM CHEMICAL EQUIPMENT REPAIRER Type 1 diabetes mellitus with other specified complication (HCC) DIABETIC EYE EXAM Routine 10/28/2023 2:2 7 PM CDT COLONOSCOPY 05/08/2022 12:35 PM CDT TSH Routine 10/25/2020 2:58 PM CDT Anxiety HEPATITIS C RNA, QUANTITATIVE, PCR STAT 03/02/2020 4:44 PM CDT from Last 3 Months or Most Recently Relevant to Health Maintenance Results * Tacrolimus, Highly Sensitive, LC/MS/MS (05/26/2025 8:29 AM CDT) Pathologist [facility] Tacrolimus, Highly Sensitive, LC/MS/MS 7.5 mcg/L [facility] [...] ORDERABL ES Final Result Performing Organization Address City/[facility]/ZIP Co de Phone Number [facility] [address] [place] [address] * COPY(IES) SENT TO: (05/26/2025 8:29 AM CDT) [facility] COPY(IES) SENT TO: [facility]O Comment: [facility] KIDNEY - COPY TO [facility] [address] [place] [address] 05/26/2025 8:29 AM CDT 05/26/2025 8:29 AM CDT Narrative [facility] - 05/27/2025 2:13 PM CDT PAE FASTING:YES FASTING: YES Jose Rafael Ramos MD LAB BLOOD ORDERABL ES Final Result [facility] * (ABNORMAL) Hepatic Function Panel, Serum (05/26/2025 8:29 AM CDT) Pathologist [facility] Protein, sr 8.4(H) 6.1 - 8.1 g/dL [...] BLOOD ORDERABL ES Final Result [facility] [address] [place] [address] * (ABNORMAL) CBC with auto differential (05/26/2025 [...] ORDERABL ES Final Result [facility] [address] [place] [address] * (ABNORMAL) Hemoglobin A1c (05/26/2025 8:29 AM CDT) Hgb A1C 6.6(H) <5.7 % of total Hgb [facility] Comment: For someone without known diabetes, [...] BLOOD ORDERABL ES Final Result [facility] [address] [place] [address] * (ABNORMAL) Renal function panel (05/26/2025 8:29 [...] LAB BLOOD ORDERABL ES Final Result [facility] [place] [address] [place] [address] * (ABNORMAL) Lipid panel (05/26/2025 8:29 AM CDT) [facility] Cholesterol 167 <200 mg/dL [facility] [...] LDL-C. Von SS et al. ELISA. 2013;310(19): 8815-5429 (http://education.[employer]/faq/KTH614) Chol/HDL ratio 3.0 <5.0 (calc) [facility] [...] MD LAB BLOOD ORDERABL ES Final Result [facility] [address] [place] [address] * BK virus PCR quantitative Blood (04/05/2025 12:08 PM CDT) [facility] BKV DNA result, pl Not Detected [facility] Comment: The quantifiable range of this assay is 21.5 IU/mL to 100,000,000 IU/mL (1.33 log IU/mL to 8.00 log IU/mL). Testing was performed by the KARLY Curbside0 BKV Quantatitive Test version 2.0 ([employer] Testing performed at [facility] Current Interpretive Data was last revised on 2021. Blood 04/05/2025 12:0 8 PM CDT 04/05/2025 1:12 PM CDT Lainey Mooney NP LAB MICROBIOLOGY - GENERAL O RDERABLES Final Result Performing Organization Address City/[facility] Co de Phone Number MAXIMO [facility] Department [place] [address] [facility] * HLA Donor Specific Antibody Report (04/05/2025 12:08 PM CDT) Lainey Mooney NP LAB BLOOD ORDERABLES Final R esult * HLA Antibody Screen - DSA (Class I and Class II) (04/05/2025 12:08 PM CDT) Blood 04/05/2025 12:0 8 PM CDT 04/06/2025 11:21 AM CDT Narrative [facility] - 04/06/2025 11:21 AM CDT Lainey Mooney NP LAB BLOOD ORDERABLES Final R esult Performing Organization Address City/[facility]/ZIP Co de Phone Number [facility] * Cytomegalovirus (CMV) DNA PCR, quantitative Blood (04/05/2025 12:08 PM CDT) CMV DNA Not Detected [facility] Comment: Interpretive Data: The quantifiable range of this assay is 34 IUnits/mL to 10,000,000 IUnits/mL (1.53 log IUnits/mL to 7.0 log IUnits/mL). Testing was performed by the AKRLY 6800 CMV Test ([employer] Testing performed at [facility]. Current interpretive data was last revised on 2021. Blood 04/05/2025 12:0 8 PM CDT 04/05/2025 1:12 PM CDT us Lainey Mooney NP LAB MICROBIOLOGY - GENERAL O RDERABLES Final Result MAXIMO [facility] Department [place] [address] [facility] * (ABNORMAL) eGFR (04/05/2025 12:08 PM CDT) Pathologist [facility] eGFR 45(L) >=60 mL/min/1. 73 m2 Comment: [...] 04/05/2025 1:20 PM CDT us Lainey Mooney VISUAL EFFECTS EDITOR LAB BLOOD ORDERABLES Final R esult [facility] Department [place] [address] * (ABNORMAL) Basic metabolic panel (04/05/2025 12:08 PM CDT) [facility] Sodium 137 135 - 145 mmol/L Potassium, pl 3.7 3.3 - 4.9 mmol/L [facility] Chloride 95(L) 97 - 110 mmol/L [facility] CO2 33(H) 22 - 32 mmol/L [facility] Anion gap 9 2 - 15 mmol/L [facility] BUN 23 6 - 25 mg/dL [facility] Creatinine 1.42(H) 0.60 - 1.10 mg/dL [facility] Glucose 153 70 - 199 mg/dL [facility] Comment: Interpretive Data Fasting glucose >/= 126 [...] 2022. Calcium 10.2 8.5 - 10.3 mg/dL [facility] Blood 04/05/2025 12:0 8 PM CDT 04/05/2025 1:20 PM CDT us Lainey Mooney NP LAB BLOOD ORDERABLES Final R esult Performing Organization Address City/[facility]/ZIP Co de Phone Number MAXIMO [facility] Department [place] [address] * Collection Task for HLA Antibody Screen (04/05/2025 11:28 AM CDT) [facility] HLA Antibody Screen By Single Antigen Received Blood 04/05/2025 11:2 8 AM CDT 04/06/2025 9:55 AM CDT Result [facility] Lainey Mooney NP LAB BLOOD ORDERABLES Final R esult MAXIMO [facility] Department [place] [address] * POCT urinalysis dipstick (04/05/2025 11:11 AM CDT) [facility] Glucose, ur, POC Negative Negative TXP NO LAB FOUND Bilirubin, ur, POC Negative Negative TXP NO LAB FOUND Ketones, ur, POC Negative Negative TXP NO LAB FOUND Specific [place], POC 1.015 1.003 - 1.030 TXP NO [...] Negative TXP NO LAB FOUND Lot Number [id number] TXP NO LA B FOUND Urine 04/05/2025 11:1 1 AM CDT Lainey Mooney NP POINT OF CARE TEST ORDERABLE S Final Result TXP NO LAB FOUND * [facility] kidney donor-derived cell-free DNA (cFDNA) (04/05/2025) [facility] SCRIBED Allosure cfDNA 0.10 % TXP NO LAB FOUND Plasma 04/05/2025 Historical Provider LAB BLOOD ORDERABLES Edit ed Result - Final TXP NO LAB FOUND * POCT glucose (03/26/2025 3:43 PM CDT) Glucose Blood, POC 200 Normal Fasting 70 - 100, Random <200 mg/dL Blood 03/26/2025 3:43 PM CDT Eriac Tyler MD POINT OF CARE TEST O RDERABLES Final Result * US Arterial Doppler Lower Extremity Bilateral (03/25/2025 2:40 PM CDT) Anatomical Region Laterality Modality Vascular N/A Ultrasound 03/25/2025 2:07 PM CDT Narrative 03/26/2025 6:31 AM CDT [facility] - Department of Vascular Surgery, Vascular Laboratory [address] [place] [address] Lower Extremity Arterial Doppler Report Patient Name: KENDY LOMELI : 1975 Study Date: 03/25/2025 2:07:00 PM Gender: F Tech: Dilcia Rojas [facility],T Location: [facility] Ref Provider: RAMON CHANEY Quality: Adequate Order Provider: RAMON CHANEY PROCEDURES: Arterial Report: Bilateral lower extremity arterial Doppler exam at rest. INDICATIONS: claudication Dx: Claudication [I73.9 (ICD-10-CM)] I73.9 Peripheral vascular disease, unspecified. MEASUREMENTS: Right Value Units Left Value Units Rt Brachial Pressure 143 mmHg Lt PLODDER OPERATOR Pressure 144 mmHg Rt PLODDER OPERATOR Pressure 138 mmHg Lt DPA Pressure 146 mmHg Rt DPA Pressure 139 mmHg Lt 1st Digit Pressure 91 mmHg Rt 1st Digit Pressure 106 mmHg Lt PT BIANCA Resting 1.01 Rt PT BIANCA Resting 0.97 Lt AT BIANCA Resting 1.02 Rt AT BIANCA Resting 0.97 Lt Digit/Arm Index 0.64 Rt Digit/Arm Index 0.74 Right Value Units Left Value Units FINDINGS: Performing Supplier Manager: Dilcia Mock RDMS, RVT. Bilateral All Levels [...] Electronically Signed By: Drew Peres MD [facility] [phone] 03/26/2025 5:34:57 AM CDT Procedure Note Drew Peres MD - 03/26/2025 [facility] - Department of Vascular Surgery,Vascular Laboratory [address] [place] [address] Lower Extremity Arterial Doppler Report Patient Name: KENDY LOMELI : 1975 Study Date: 03/25/2025 2:07:00 PM Gender: F Tech: Dilcia Rojas RDMS,[place] Location: [facility] Provider: RAMON CHANEY Quality: Adequate Order Provider: RAMON CHANEY PROCEDURES: Arterial Report: Bilateral lower extremity arterial Doppler exam at rest. INDICATIONS: claudication Dx: Claudication [I73.9 (ICD-10-CM)] I73.9 Peripheral vascular disease, unspecified. MEASUREMENTS: Right Value Units Left Value Units Rt Brachial Pressure 143 mmHg Lt PLODDER OPERATOR Pressure 144 mmHg Rt PLODDER OPERATOR Pressure 138 mmHg Lt DPA Pressure 146 mmHg Rt DPA Pressure 139 mmHg Lt 1st Digit Pressure 91 mmHg Rt 1st Digit Pressure 106 mmHg Lt PT BIANCA Resting 1.01 Rt PT BIANCA Resting 0.97 Lt AT BIANCA Resting 1.02 Rt AT BIANCA Resting 0.97 Lt Digit/Arm Index 0.64 Rt Digit/Arm Index 0.74 Right Value Units Left Value Units FINDINGS: Performing Supplier Manager: Dilcia Mock RDMS, RVT. Bilateral All Levels [...] Electronically Signed By: Drew Peres MD [facility] [phone] 03/26/2025 5:34:57 AM CDT Ramon Chaney MD IM US PROCEDURES Final Resul t * (ABNORMAL) POCT hemoglobin A1c (03/18/2025 3:22 PM CDT) Pathologist [facility] Hemoglobin A1C, POC 8.3(A) 4.0 - 5.6 % Blood 03/18/2025 3:[address] POINT OF CARE TEST ORDER JANEE Final Result * Tacrolimus, Highly Sensitive, LC/MS/MS (03/16/2025 8:07 AM CDT) Pathologist [facility] Tacrolimus, Highly Sensitive, LC/MS/MS 6.1 mcg/L [facility] Comment: No definitive therapeutic or toxic ranges [...] ORDERABL ES Final Result Performing Organization Address City/[facility]/ZIP Co de Phone Number [facility] [address] [place] [address] * COPY(IES) SENT TO: (03/16/2025 8:07 AM CDT) COPY(IES) SENT TO: [facility]ST Comment: [facility] KIDNEY - COPY TO [facility] [address] [place] [address] 03/16/2025 8:07 AM CDT 03/16/2025 8:07 AM CDT Narrative [facility] - 03/17/2025 4:30 PM CDT PAE Jose Rafael Ramos MD LAB BLOOD ORDERABL ES Final Result Performing Organization Address City/[facility]/ZIP Co de Phone Number [facility] * (ABNORMAL) [...] BLOOD ORDERABL ES Final Result [facility] [address] [place] [address] * (ABNORMAL) Renal function panel (03/16/2025 8:07 AM CDT) Pathologist [facility] Glucose 222(H) 65 - 99 mg/dL [facility] [...] Final Result Performing Organization Address [facility] de Phone Number [facility]ST [facility] [address] [place] [address] * Albumin Creatinine Ratio, Urine (07/14/2024 8:26 AM CHEMICAL EQUIPMENT REPAIRER) Creatinine, ur 95 20 - 275 mg/dL [...] a diagnostic category. Urine 07/14/2024 8:26 AM CHEMICAL EQUIPMENT REPAIRER 07/14/2024 8:26 AM CHEMICAL EQUIPMENT REPAIRER Drew Godoy MD LAB URINE ORDERABLES Final Res ult [facility] [address] [place] [address] * Diabetic Eye Exam (10/28/2023 2:27 PM CDT) us Historical Provider HEALTH MAINTENANCE Final Result * COLONOSCOPY (05/08/2022 12:35 PM CDT) Anatomical Region Laterality Modality Other Narrative Procedure Note Cricket Santamaria MD - 05/08/2022 12:35 PM CDT [facility] Patient Name: Kendy Lomeli Procedure Date: 05/08/2022 12:35PM Date of : 1975 Admit Type: Outpatient Age: 47 Gender: Female Attending MD: Cricket Santamaria M.D. Room: [facility] ENDOSCOPY ROOM 8 Note Status: [...] The scope was passed under direct vision.The [id number] endoscope was introduced through the anus and advanced to the cecum, identified by appendiceal orifice and ileocecal valve. The colonoscopy was performed without difficulty. The patient tolerated the procedure well. The qualityof the bowel preparation was evaluated using the BBPS (Maupin Bowel Preparation Scale) with scores of:Right Colon [...] following this procedure please call my office [phone]). After hours and eveningsplease call [phone] and speak to the GI fellow augustin. [...] On: 05/08/2022 12:35 PM Recognized by the [employer] for promoting quality in endoscopy us Cricket Santamaria MD ENDOSCOPY PROCEDURES Fi nal Result * TSH (10/25/2020 2:58 PM CDT) TSH 0.671 0.450 - 4.500 uIU/mL [facility] - 01 Blood specimen (specimen) 10/25/2020 2:58 PM CDT 10/25/2020 Narrative [facility] - 10/26/2020 8:15 AM CDT Performed at: [address] [id number] Convertible Sofa Bedspring Tester: Jean-Claude Snider PhD, Phone: [phone] us Ramon Chaney MD LAB BLOOD ORDERABLES Final Re sult Performing Organization Address City/[facility] Co de Phone Number [facility] - * Hepatitis C (HCV) RNA PCR, quantitative (03/02/2020 4:44 PM CDT) [facility] HCV RNA result Not Detected [facility] Comment: Interpretive data: The quantifiable range of this assay is 15 IU/mL to 100,000,000 IU/mL (1.18 log IU/mL to 8.00 log IU/mL). Testing was performed by the [employer]AR[employer] AmpliPrep/KARLY TaqMan HCV Test version 2.0 ([employer] Testing performed at [facility] Current Interpretive Data was last revised on 2015. Blood specimen (specimen) 03/02/2020 4:44 PM CDT 03/02/2020 5:00 PM CDT us Malcolm Mann MD LAB MICROBIOLOGY - GENERA L ORDERABLES Final Result Performing Organization Address City/[facility] Co de Phone Number [facility] Department [place] [address] from Last 3 Months or Most Recently Relevant to Health Maintenance Insurance [facility] MEDICARE ADVANTAGE [facility] MEDICARE [employer] MEDICARE ADVANTAGE Advance Directives For more information, please contact: [phone] * Full Code (Latest Code Status on [...] 11:12 AM 05/08/2022 5:48 PM Care Teams Bush Regenerator Relationship Specialty Start Date End Date Ramon Chaney MD PCP - General 08/31/16 Burak Blue MD Consulting Physician Nephrology 04/21/18 Juana Jimenez RN Assignment Desk Assistant 03/09/19 Sylwia García MD Referring Physician Endocrinology Diabetes & Metabolism 03/21/20 Igor Yeager DO Consulting Physician Urology 04/27/20 Cristina Boyer, RN [address] [address] Secondary Kidney Coordinator Transplant 08/25/20 Cyn Fang NP [address] [address] Nurse Practitioner Nurse Practitioner 12/06/21 Gavi Cervantes NP [address] [facility] ENDOCR[facility]OLOG[facility], [facility] [address] [place] [address] Nurse Practitioner Family Medicine 01/06/25
--- OUTSIDE RECORDS SUMMARY | 2025-05-27 16:05 | XMS_ITS | Clinical Summary ---
Author Organization [facility] Address [address] [address] Care Team Providers Care Lace Tearing Supervisor Name Role Phone Ramon Sylvester MD Primary Care Provider [phone] Ramon Sylvester MD Unavailable [phone] Source Comments [facility],non-owned Affiliates and Associated Physician Practices is amultiple site organization consisting of ambulatory clinics and hospital sitesin [place], [place], [place] and [place]. This disclosure is being madepursuant to the Care Everywhere program and may not contain all information available regarding this patient. Last updated 18.[facility] Allergies Active Allergy Reactions Criticality Noted [...] MCG/ACT nasal sprayIndicatio ns:Nasal Signs and Symptoms Valier 2 Sprays into each nostril once daily [...] age to complete this topic Insurance MEDICARE [facility] Care Teams Lace Tearing Supervisor Relationship Specialty Start Date End Date Ramon Sylvester MD PCP - General Internal Medicine 10/19/16 Ramon Sylvester MD Internal Medicine 10/19/16
--- OUTSIDE RECORDS SUMMARY | 2025-05-27 16:06 | XMS_ITS ---
Author Organization [facility] Address [address] [place] [address] Care Team Providers Care Air Reduction Equipment Operator Name Role Phone Ramon Sylvester MD Primary Care Provider Burak Blue MD Unavailable [phone] Juana Jimenez RN Unavailable [phone] Sylwia García MD Unavailable Igor Yeager DO Unavailable Cristina Boyer RN Unavailable Cyn Fang NP Unavailable Gavi Cervantes NP Unavailable Transplant Episode Kidney Recipient [facility] ([place], [place]) - [facility] Organ Received: Left Kidney Transplanted on 03/09/2019 Marked as Active Follow-up on 03/09/2019 Reason: Transplanted at [facility] Kidney CoordinatorJuana Jimenez RN Fax: N/A Email: N/A [place] Organ Diagnosis Organ Primary Contributory Kidney Diabetes [...] Fax Email Juana Jimenez RN Kidney Coordinator [phone] N/A N/A Cristina Boyer RN Secondary Coordinator Secondary Kidney Coordinator [phone] N/A N/A Burak Blue MD Referring Physician [phone] N/A Kristen Finley Primary Gear Shaver Set Up Operator N/A N/A N/A Jose De Jesus Barrios Secondary Gear Shaver Set Up Operator N/A N/A N/A Diane Salomon Sprinkling Truck Driver [phone] N/A N/A Juana Jimenez gate supervisorConsulting Sales Manager [phone] N/A N/A Events Post-Transplant Pre-Transplant Admitted: 03/07/2019 Referred: 10/17/2017 Transplanted: 03/09/2019 Evaluation began: 8 Discharged: 03/12/2019 Committee: 12/08/2018 Center waitlisted: 9 Dialysis History Dialysis History Start End Type Comments Center 01/13/2018 03/09/2019 Peritoneal [facility] Information Center Phone Fax Address [facility] [phone] [address] [facility] [address]
[2025-05-27] MEDS: SODIUM CHLORIDE 0.9% IV 1,000 ML 999 ML IV CONT (16:36)
[2025-05-27] MEDS: ONDANSETRON INJ 4 MG/2 ML VIAL IV PUSH (16:37)
[2025-05-27 16:56] LABS: Alanine Aminotransferase 14 U/L (6-35); Albumin Level 4.5 g/dL (3.5-5.1); Alkaline Phosphatase 60 U/L (38-126); Anion Gap 14 mmol/L (4-12); Aspartate Amino Transferase 29 U/L (14-36); Bilirubin,Total 1.1 mg/dL (0.2-1.3); Blood Urea Nitrogen 19 mg/dL (7-17); Calcium 9.7 mg/dL (8.4-10.2); Carbon Dioxide 27 mmol/L (22-30); Chloride 92 mmol/L (98-107); Estimated CRCL calculation 47 ml/min; Estimated Glomerular Filt Rate 51; Glucose 370 mg/dL (65-110); Lipase 11 U/L (23-300); Potassium 3.7 mmol/L (3.4-5.0); Sodium 133 mmol/L (137-145); Total Protein 8.7 g/dL (6.3-8.2)
[2025-05-27] MEDS: HYDROmorphone HCL INJ (*CRX) 1 MG/ML SYR 0.5 MG IV PUSH ×3 (17:12→22:11)
[2025-05-27 18:46] LABS: Influenza A QL RT-PCR Negative (Negative); Influenza B QL RT-PCR Negative (Negative); RSV RNA, RT-PCR Negative (Negative); SARS-CoV-2 RNA PCR Negative (Negative)
[2025-05-27] MEDS: LACTATED RINGERS 1,000 ML 999 ML IV CONT (18:46)
[2025-05-27] MEDS: METOCLOPRAMIDE HCL INJ 10 MG/2 ML VIAL IV PUSH (18:46)
[2025-05-27 20:12] LABS: Add Urine Microscopic? YES; Appearance Urine Clear (Clear); Glucose Urine UA 3+ mg/dL (Negative); Leukocyte Esterase Ur Negative LEU/UL (Negative); Nitrate Urine Negative (Negative); Non Pathogenic Casts 0-2; Specific Grav Ur 1.027 (1.001-1.035)
[2025-05-27] MEDS: SODIUM CHLORIDE 0.9% IV 1,000 ML 125 ML IV CONT (21:09)
--- NOTE | 2025-05-27 21:59 | PC.NURSE ---
Patient admitted to room 341 at 2105. Patient has no complaints of nausea at this time but states abdominal pain is 8/10. Callie Dwyer is aware and is now at bedside.
[2025-05-27] MEDS: FAMOTIDINE 20 MG/2 ML VIAL IV PUSH (22:11)
--- NOTE | 2025-05-27 22:35 | PM.IMHP ---
H&P: HPI History of Present Illness Date/Time: 05/27/25 22:35 Chief Complaint: Nausea vomiting and diarrhea. Narrative: This is a 50-year-old female patient who has a history of diabetes and a renal transplant on tacrolimus. She came to the emergency room with complaints of nausea, vomiting, and diarrhea associated with abdominal pain that she rates 8/10. This pain started a few hours prior to arrival to the emergency room. She denies any urinary symptoms or any fever chills. Her white count was mildly elevated at 10.6 and her platelet count 133. Abnormal chemistry levels sodium was 133, chloride 92, anion gap was 14, BUN 19 creatinine 1.13, estimated GFR 51 and her glucose is 370 which came down to 221. The patient stated that she is typically on an insulin pump but it was malfunctioning and she had to take it off. Glucose is 3+ in her urine with 2+ ketones. Viral serology was negative. She was given Benadryl, multiple doses of Dilaudid, labetalol, Reglan, Zofran, lactated Ringer's, and normal saline in the emergency room. Abdominal pelvis CT was read as no acute abnormalities noted in the abdomen and pelvis. Small hiatal hernia with reflux. Thickening of the gastric wall may be either due to under distended versus gastritis. Right pelvic kidney is unremarkable. Right kidney is absent. Left kidney is atrophied. The patient is being admitted to observation status on the date of service of 05/27/2025. Review of Systems Constitutional: Constitutional: Reports as per HPI and Reports no additional constitutional complaints Eyes: Eyes: Reports as per HPI and Reports no additional eye complaints ENT: Reports system reviewed and no additional complaints, except as documented and Reports Normal hearing present Cardiovascular: Cardiovascular: Reports no additional cardiovascular complaints Respiratory: Respiratory: Reports as per HPI and Reports no additional respiratory complaints Gastrointestinal: Gastrointestinal: Reports as per HPI and Reports no additional gastrointestinal complaints Genitourinary: Genitourinary: Reports no additional female genitourinary complaints Musculoskeletal: Musculoskeletal: Reports no additional musculoskeletal complaints Integumentary/Breasts: Skin/Breast: Reports system reviewed and no additional complaints, except as docu Neurologic: Reports system reviewed and no additional complaints, except as documented and Reports Normal hearing present Psychiatric: Psychiatric: Reports no additional psychiatric complaints and Reports as per HPI Hematologic/Lymphatic: Hematologic/Lymphatic: Reports no additional hematologic/lymphatic complaints Allergic/Immunologic: Allergic/Immunologic: Reports no additional allergic/immunologic complaints [facility] Past Medical History Medical History (Updated 05/27/25 @ 22:52 by Callie Dwyer APRN) Bipolar disorder Peripheral neuropathy Anxiety UTI (urinary tract infection) Post-menopausal Pancreatic insufficiency Hypertension MRSA infection Chronic obstructive pulmonary disease Diabetic nephropathy Type 1 diabetes mellitus Diabetic gastroparesis Surgical History Surgical History History of right nephrectomy Secondary to suspicious mass which turned out to be noncancerous. History of benign breast biopsy History of hysterectomy History of appendectomy (02/2019) History of kidney transplant (02/2019) [place] Family History Family History Grandparent Diabetes mellitus Emphysema of lung Mother and grandparent Grandparent Hypertension Mother Lupus Social History Social History (Updated 05/27/25 @ 22:52 by Callie Dwyer APRN) Social History: She is and lives with her . She is disabled. She has no children. Surrogate medical decision maker: Aleja Taz, mother. Code status: Full code. Smoking packs per day: 1 Smoking cigarettes per day: 20.0 Years smoked: 10 Smoking pack-years: 10.00 Smoking status: Former smoker Tobacco type: cigarettes Second hand tobacco smoke exposure: No Smoking end date: 10/27/18 Alcohol intake: never Substance use: never Substance use type: marijuana Do You Feel Safe in your Home?: Yes Lack of Transportation: No Lack of Food: Never True Current Housing: I Have Housing Concerned About Future Housing: No Difficulty Paying Gas/Electric Bills: No Difficulty Paying for Meds: No Currently Unemployed: No Education: High School Diploma/GED Difficulty w/ Childcare or Family Care: No Spiritual care concerns: No Meds Home Medications and Allergies Home Medications ?Medication ?Instructions ?Recorded ?Confirmed ?Type aspirin 81 mg tablet,delayed 81 mg PO DAILY 08/30/20 05/27/25 History release (Adult Aspirin Regimen) azathioprine 50 mg tablet 50 mg PO DAILY 08/30/20 05/27/25 History omeprazole 20 mg capsule,delayed 20 mg PO DAILY 08/30/20 05/27/25 History release zolpidem 10 mg tablet (Ambien) 10 mg PO HS 08/30/20 05/27/25 History atorvastatin 20 mg tablet 20 mg PO DAILY 12/22/23 05/27/25 History cholecalciferol (vitamin D3) 50 50 mcg PO DAILY 12/22/23 05/27/25 History mcg (2,000 unit) tablet (Vitamin D3) cyanocobalamin (vitamin B-12) 500 1,000 mcg PO DAILY 12/22/23 05/27/25 History mcg tablet epinephrine 0.3 mg/0.3 mL 0.3 mg IM Q5-15M PRN Anaphylaxis 12/22/23 05/27/25 History injection, auto-injector flash glucose sensor (FreeStyle 12/22/23 05/27/25 History Lynda 14 Day Sensor kit) fluticasone furoate 100 1 inh inhalation DAILY 12/22/23 05/27/25 History mcg-vilanterol 25 mcg/dose inhalation powder (Breo Ellipta) gabapentin 100 mg capsule 100 mg PO TID 12/22/23 05/27/25 History insulin glargine U-300 conc 300 24 unit subcut DAILY 12/22/23 05/27/25 History unit/mL (1.5 mL) subcutaneous pen (Toujeo SoloStar U-300 Insulin) montelukast 10 mg tablet 10 mg PO DAILY 12/22/23 05/27/25 History pen needle, diabetic 31 gauge x 12/22/23 05/27/25 History 3/16 (BD Ultra-Fine Mini Pen Needle) sertraline 50 mg tablet 50 mg PO DAILY 12/22/23 05/27/25 History tramadol 50 mg tablet 100 mg PO Q6H PRN Pain 12/22/23 05/27/25 History alprazolam 0.5 mg tablet 0.5 mg PO TID PRN Anxiety 01/10/24 05/27/25 History carvedilol 6.25 mg tablet (Coreg) 6.25 mg PO DAILY 01/10/24 05/27/25 History divalproex 500 mg tablet,delayed 500 mg PO TID 01/10/24 05/27/25 History release prednisone 5 mg tablet 5 mg PO DAILY 01/10/24 05/27/25 History tacrolimus 1 mg tablet,extended 3 mg PO DAILY 01/10/24 05/27/25 History release 24 hr (Envarsus XR) timolol maleate 0.5 % eye drops 2 drp EACH EYE BID 01/10/24 05/27/25 History fluticasone propionate 50 2 spray intranasal BID PRN RHINITIS 04/13/24 05/27/25 History mcg/actuation nasal spray,suspension glucagon 3 mg/actuation nasal 3 mg intranasal PRN PRN 04/13/24 05/27/25 History spray (Baqsimi) Hypoglycemia insulin lispro 100 unit/mL See Rx Instructions .Route .COMPLEX 04/13/24 05/27/25 History subcutaneous half-unit pen lbedkw-vbwgjnxu-rsjwxtv(pork) 1 cap PO .ac #300 caps 05/28/24 05/27/25 Rx [id number] unit capsule,del rel (Zenpep) furosemide 20 mg tablet (Lasix) 20 mg PO DAILY 08/08/24 05/27/25 History ondansetron 4 mg disintegrating 4 mg PO Q6H PRN nausea and 12/11/24 05/27/25 Rx tablet vomiting #10 tabs Saccharomyces boulardii 250 mg 250 mg PO BID #14 caps 12/18/24 05/27/25 Rx capsule (Florastor) oxycodone-acetaminophen 5 mg-325 1 tablet PO Q4H PRN Pain Rated 12/18/24 05/27/25 Rx mg tablet 7-10 #10 tabs mirtazapine 15 mg tablet See Rx Instructions .Route 12/28/24 05/27/25 Rx .COMPLEX #90 tabs Allergies Allergy/AdvReac Type Severity Reaction Status Date / Time cyclobenzaprine Allergy Unknown Hives / Verified 05/27/25 21:42 Red Face metformin AdvReac Intermediate Vomiting Verified 05/27/25 21:42 tetracycline AdvReac Unknown Nausea and Verified 05/27/25 21:42 Vomiting acetaminophen (From Tylenol) AdvReac Nausea and Verified 05/27/25 21:42 Vomiting morphine AdvReac Itching Verified 05/27/25 21:42 Vital Signs Vital Signs - 24 hr 05/27/25 13:52 05/27/25 17:13 05/27/25 17:14 Temperature 97.8 F 98.6 F Pulse Rate 99 105 H 105 H Respiratory Rate 18 20 20 Blood Pressure 185/105 H 171/100 H 170/100 H Pulse Oximetry 100 100 100 Oxygen Delivery Room Air Room Air 05/27/25 19:00 05/27/25 19:54 05/27/25 20:00 Temperature 99.0 F Pulse Rate 108 H 107 H Respiratory Rate 12 20 Blood Pressure 185/93 H 101/64 123/63 Pulse Oximetry 97 99 Oxygen Delivery 05/27/25 21:12 Temperature Pulse Rate 97 Respiratory Rate 16 Blood Pressure 119/79 Pulse Oximetry 96 Oxygen Delivery Exam Const: General: cooperative, no acute distress, well developed, alert, awake, Physically active, anxious, ill appearing, average body habitus and well nourished Nutritional Appearance: average body habitus and well nourished Orientation/consciousness: oriented to person, oriented to place, oriented to time and patient oriented x3 Limitations: no limitations HENMT: Head: normal to inspection, No palpable skull fracture present and normocephalic Eyes: General: appearance normal, both eyes and all related structures Alignment and Position: alignment normal Periorbital: periorbital findings normal Neck: Neck: normal visual inspection, full ROM and no lymphadenopathy Chest: Chest palpation & inspection: normal inspection of the chest Resp: Effort & Inspection: normal respiratory effort Auscultation: clear to auscultation bilaterally Cardio: Palpation: normal PMI Rhythm: regular rhythm Heart sounds: S1 normal heart sound present and S2 normal heart sound present Peripheral pulses: Peripheral pulses 2+ throughout GI: Inspection: normal to inspection GI Palp: Yes abdominal tenderness Percussion: Yes normal to percussion Auscultation: normal bowel sounds Rectal Exam: deferred Other: Mild abdominal tenderness with deep palpation to right lower and left lower quadrant. Skin: General skin exam: normal color Lesions: no lesions Rashes: no rashes Trauma: no lacerations or abrasions Wounds: no wounds Hair: normal Nails: normal Neuro: General: oriented to person, oriented to place, oriented to time and patient oriented x3 Cranial nerves: Yes Equal, round and reactive pupils present and Yes Normal hearing present Cognition (Neuro): normal cognition Speech: normal speech Gait exam (Neuro): Normal gait present Motor exam (neuro): 5/5 motor strength present throughout Sensory Exam: normal sensation Psych: Appearance: grossly normal Mental Status: mental status grossly normal Speech and movement: Normal speech and movement present Affect: normal affect Attitude: cooperative Thought process: Normal thought process present Thought content: Yes Normal thought content present Insight: Good insight present (Psych) Judgement: Good judgement present (Psych) H&P: Results Labs Labs: Short CBC 05/27/25 Range/Units 15:40 WBC 10.6 H (4.5-10.0) K/mm3 Hgb 14.6 (12.0-15.0) g/dL Hct 42.8 (37.0-47.0) % Plt Count 133 L (150-375) k/mm3 BMP 05/27/25 16:34 Sodium 133 L Potassium 3.7 Chloride 92 L Carbon Dioxide 27 BUN 19 H Creatinine 1.13 H Glucose 370 H Calcium 9.7 Liver Function 05/27/25 Range/Units 16:34 Total Bilirubin 1.1 (0.2-1.3) mg/dL AST 29 (14-36) U/L ALT 14 (6-35) U/L Alkaline Phosphatase 60 (38-126) U/L Albumin 4.5 (3.5-5.1) g/dL Urine 05/27/25 Range/Units 19:23 Urine Color Yellow (Yellow) Urine Appearance Clear (Clear) Urine pH 8.5 (5.0-9.0) Ur Specific [place] 1.027 (1.001-1.035) Urine Protein Negative (Negative) mg/dL Urine Glucose (UA) 3+ H (Negative) mg/dL Imaging Chest x-ray: Radiologist's impression: Impressions Abdomen/Pelvis CT 05/27/25 18:02 IMPRESSION: No acute abnormality is noted in the abdomen and pelvis. Small hiatal hernia with reflux. Thickening of the gastric wall may be either due to under distention versus gastritis. Right pelvic kidney is unremarkable. Right kidney is absent. Left kidney is atrophied. All CT scans at this facility are performed using low dose modulation techniques as appropriate to perform exam including the following: automated exposure control; use of iterative reconstruction technique; adjustment of the mA and/or kV according to patient size (this includes techniques or standardized protocols for targeted exams where dose is matched to indication/reason for exam). Assessment and Plan Assessment and plan (1) DAREK (acute kidney injury): Code(s): N17.9 - Acute kidney failure, unspecified Status: Acute Assessment and Plan: -creatinine 1.13 with BUN of 19 and a GFR 51 -patient's creatinine level was previously listed is 1.05 otherwise is within normal limits. -her last GFR was 55 with previous normal range. -she has intractable nausea and vomiting with diarrhea. -continue with IV fluid -patient stated that her nausea vomiting and diarrhea have stopped. -daily BMPs -the patient was admitted due to the intractable nausea vomiting and diarrhea and the fact that she has had a kidney transplant. -hold Lasix for now. (2) Intractable vomiting with nausea: Code(s): R11.2 - Nausea with vomiting, unspecified Status: Acute Assessment and Plan: -the patient denies any further nausea and vomiting at this time. She complains of rectus abdominus muscle pain. She stated that she has abdominal pain due to vomiting. -continue to monitor electrolytes daily and replace as needed. -continue with IV fluid -stool samples are pending. -CT scan shows possible gastritis. -check for H pylori -stool specimens are pending -IV Pepcid -monitor I and o closely -continue with Zofran previous QTC was 488 -continue with probiotic (3) Pancreatic insufficiency: Code(s): K86.89 - Other specified diseases of pancreas Status: Acute Assessment and Plan: -continue with home medication of zenpep, may use formulary doses are home doses. -check daily lipase (4) Intractable abdominal pain: Code(s): R10.9 - Unspecified abdominal pain Status: Acute Assessment and Plan: -CT scan was read as the followingCT was read asNo acute abnormality is noted in the abdomen and pelvis. Small hiatal hernia with reflux. Thickening of the gastric wall may be either due to under distention versus gastritis. Right pelvic kidney is unremarkable. Right kidney is absent. Left kidney is atrophied. -continue with home pain medication. -continue with Ativan -IV Pepcid -patient was given several doses of Dilaudid, her blood pressure is low at this time. The patient stated that she has more of muscle skeletal pain to her lower abdomen. May consider muscle relaxer. However the patient is on multiple medications at this point. (5) History of kidney transplant: Onset Date: 02/2019 Code(s): Z94.0 - Kidney transplant status Status: Acute Assessment and Plan: -may continue with home medication of Envarsus XR. The patient stated that she does have these with her. -continue with imuran -continue with prednisone (6) Dehydration: Code(s): E86.0 - Dehydration Status: Acute Assessment and Plan: -continue with IV fluids -continue to monitor electrolytes and replenish as necessary. (7) Peripheral neuropathy: Code(s): G62.9 - Polyneuropathy, unspecified Status: Acute Assessment and Plan: -continue with gabapentin. (8) Chronic obstructive pulmonary disease: Code(s): J44.9 - Chronic obstructive pulmonary disease, unspecified Status: Acute Assessment and Plan: -continue with home inhalers. -continue with Singulair (9) Hypertension: Code(s): I10 - Essential (primary) hypertension Status: Acute Assessment and Plan: -patient's blood pressure is on the soft side today. Continue with Coreg if blood pressure allows. -Lasix is on hold at this time. (10) Anxiety: Code(s): F41.9 - Anxiety disorder, unspecified Status: Acute Assessment and Plan: -continue with alprazolam (11) Insulin dependent diabetes mellitus: Status: Acute Assessment and Plan: -check A1c. -Accu-Cheks AC and HS with sliding scale insulin moderate dose. -pharmacy to dose her long-acting insulin. -her blood sugars in the 200s this evening. (12) Bipolar disorder: Code(s): F31.9 - Bipolar disorder, unspecified Status: Acute Assessment and Plan: -continue with mirtazapine -continue with sertraline -continue with Depakote and check levels Quality VTE Prophylaxis VTE prophylaxis: mechanical ordered
[2025-05-27] MEDS: ZOLPIDEM TARTRATE (*CRX) 5 MG TABLET 10 MG PO (23:38)
[2025-05-27] MEDS: MIRTAZAPINE 15 MG TABLET BY MOUTH (23:38)
[2025-05-27] MEDS: SACCHAROMYCES BOULARDII 250 MG CAPSULE PO (23:38)
[2025-05-27] MEDS: DIVALPROEX SODIUM DR 250 MG TABEC 500 MG PO (23:39)
[2025-05-27] MEDS: GABAPENTIN 100 MG CAPSULE PO (23:39)
[2025-05-28] VITALS (12 sets, daily range): BP systolic 111–195; BP diastolic 68–113; PULSE 91–112; RESP 16–18; TEMP 35.9–37; O2SAT 97–100
[2025-05-28 00:09] LABS: Hemoglobin A1C 6.2 % (<5.7)
[2025-05-28 00:25] LABS: Anion Gap 7 mmol/L (4-12); Blood Urea Nitrogen 11 mg/dL (7-17); Calcium 6.9 mg/dL (8.4-10.2); Carbon Dioxide 23 mmol/L (22-30); Chloride 107 mmol/L (98-107); Estimated CRCL calculation 74 ml/min; Estimated Glomerular Filt Rate > 60; Glucose 140 mg/dL (65-110); Potassium 2.8 mmol/L (3.4-5.0); Sodium 137 mmol/L (137-145)
[2025-05-28 00:42] LABS: Lipase < 10 U/L (23-300)
[2025-05-28] MEDS: POTASSIUM CHLORIDE 20 MEQ ER TABLET 40 MEQ PO (01:07)
[2025-05-28] MEDS: ALPRAZolam (*CRX) 0.5 MG TABLET PO ×3 (04:38→20:28)
[2025-05-28] MEDS: SODIUM CHLORIDE 0.9% IV 1,000 ML 125 ML IV CONT ×3 (04:39→19:15)
[2025-05-28 05:35] LABS: IFOB Positive Control Positive; Immunochemical Fecal Occult Bl Positive (N)
[2025-05-28 05:46] LABS: Hematocrit 34.5 % (37.0-47.0); Hemoglobin 11.5 g/dL (12.0-15.0); Mean Corpuscular HGB Conc 33.3 g/dl (32-36); Mean Corpuscular Hemoglobin 34.0 pg (26-34); Mean Corpuscular Volume 102.1 fl (80-100); Platelet Count Result 141 k/mm3 (150-375); Red Blood Count 3.38 M/mm3 (4.2-5.4); White Blood Count 6.7 K/mm3 (4.5-10.0)
[2025-05-28 06:05] LABS: Anion Gap 8 mmol/L (4-12); Blood Urea Nitrogen 10 mg/dL (7-17); Calcium 8.4 mg/dL (8.4-10.2); Carbon Dioxide 25 mmol/L (22-30); Chloride 102 mmol/L (98-107); Estimated CRCL calculation 59 ml/min; Estimated Glomerular Filt Rate > 60; Glucose 176 mg/dL (65-110); Magnesium 1.5 mg/dL (1.6-2.3); Potassium 4.1 mmol/L (3.4-5.0); Sodium 135 mmol/L (137-145)
[2025-05-28 06:35] LABS: Thyroid Stimulating Hormone Reflex 0.668 uIU/mL (0.465-4.68)
[2025-05-28] MEDS: FLUTICASONE/SALMETEROL 115-21 MCG INHALER 1 PUFF 2 PUFF INHALATION ×2 (07:53→21:12)
[2025-05-28] MEDS: MONTELUKAST SODIUM 10 MG TABLET PO (08:28)
[2025-05-28] MEDS: SACCHAROMYCES BOULARDII 250 MG CAPSULE PO ×2 (08:28→20:29)
[2025-05-28] MEDS: CYANOCOBALAMIN 1,000 MCG TABLET 1000 MCG PO (08:28)
[2025-05-28] MEDS: CHOLECALCIFEROL (VITAMIN D3) 25 MCG (1,000 UNITS) TABLET 50 MCG PO (08:28)
[2025-05-28] MEDS: ASPIRIN 81 MG ENTERIC TABLET PO (08:28)
[2025-05-28] MEDS: GABAPENTIN 100 MG CAPSULE PO ×2 (08:28→16:17)
[2025-05-28] MEDS: ATORVASTATIN 20 MG TABLET PO (08:28)
[2025-05-28] MEDS: SERTRALINE HCL 50 MG TABLET PO (08:28)
[2025-05-28] MEDS: FAMOTIDINE 20 MG/2 ML VIAL IV PUSH ×2 (08:29→20:29)
[2025-05-28] MEDS: INSULIN GLARGINE (*BKC) 100 UNITS/ML 19 UNITS SUB-Q (08:29)
[2025-05-28] MEDS: TIMOLOL MALEATE 0.5% OP SOLN 5 ML BOTTLE 2 DROP EACH EYE ×2 (08:30→16:18)
[2025-05-28] MEDS: traMADol HCL (*CRX) 50 MG TABLET 100 MG PO (08:44)
[2025-05-28] MEDS: DIVALPROEX SODIUM DR 250 MG TABEC 500 MG PO ×2 (08:45→16:17)
[2025-05-28] MEDS: LIPASE/AMYLASE/PROTEASE 12,000 UNITS CAP 5 CAP PO ×2 (08:45→16:17)
[2025-05-28] MEDS: ONDANSETRON INJ 4 MG/2 ML VIAL IV PUSH ×2 (10:33→14:25)
[2025-05-28] MEDS: HYDROmorphone HCL INJ (*CRX) 1 MG/ML SYR 0.5 MG IV PUSH ×4 (10:59→22:01)
--- NOTE | 2025-05-28 11:38 | PC.NURSE ---
Glucose 201. Novolog 3 units SQ as per protocol ordered. Patient refused. Stated, It will drop my blood sugar,
[2025-05-28] MEDS: METOCLOPRAMIDE HCL INJ 10 MG/2 ML VIAL IV PUSH (12:33)
--- NOTE | 2025-05-28 13:41 | PM.IMPN ---
Progress Note: A&P Assessment and Plan (1) DAREK (acute kidney injury): Code(s): N17.9 - Acute kidney failure, unspecified Status: Acute Assessment and Plan: -creatinine 1.13 with BUN of 19 and a GFR 51 -patient's creatinine level was previously listed is 1.05 otherwise is within normal limits. -her last GFR was 55 with previous normal range. -she has intractable nausea and vomiting with diarrhea. -continue with IV fluid -patient stated that her nausea vomiting and diarrhea have stopped. -daily BMPs -the patient was admitted due to the intractable nausea vomiting and diarrhea and the fact that she has had a kidney transplant. -hold Lasix for now. (2) Intractable vomiting with nausea: Code(s): R11.2 - Nausea with vomiting, unspecified Status: Acute Assessment and Plan: -the patient denies any further nausea and vomiting at this time. She complains of rectus abdominus muscle pain. She stated that she has abdominal pain due to vomiting. -continue to monitor electrolytes daily and replace as needed. -continue with IV fluid -stool samples are pending. -CT scan shows possible gastritis. -check for H pylori -stool specimens are pending -IV Pepcid -monitor I and o closely -continue with Zofran previous QTC was 488 -continue with probiotic (3) Pancreatic insufficiency: Code(s): K86.89 - Other specified diseases of pancreas Status: Acute Assessment and Plan: -continue with home medication of zenpep, may use formulary doses are home doses. -check daily lipase (4) Intractable abdominal pain: Code(s): R10.9 - Unspecified abdominal pain Status: Acute Assessment and Plan: -CT scan was read as the followingCT was read asNo acute abnormality is noted in the abdomen and pelvis. Small hiatal hernia with reflux. Thickening of the gastric wall may be either due to under distention versus gastritis. Right pelvic kidney is unremarkable. Right kidney is absent. Left kidney is atrophied. -continue with home pain medication. -continue with Ativan -IV Pepcid -patient was given several doses of Dilaudid, her blood pressure is low at this time. The patient stated that she has more of muscle skeletal pain to her lower abdomen. May consider muscle relaxer. However the patient is on multiple medications at this point. (5) History of kidney transplant: Onset Date: 02/2019 Code(s): Z94.0 - Kidney transplant status Status: Acute Assessment and Plan: -may continue with home medication of Envarsus XR. The patient stated that she does have these with her. -continue with imuran -continue with prednisone (6) Dehydration: Code(s): E86.0 - Dehydration Status: Acute Assessment and Plan: -continue with IV fluids -continue to monitor electrolytes and replenish as necessary. (7) Peripheral neuropathy: Code(s): G62.9 - Polyneuropathy, unspecified Status: Acute Assessment and Plan: -continue with gabapentin. (8) Chronic obstructive pulmonary disease: Code(s): J44.9 - Chronic obstructive pulmonary disease, unspecified Status: Acute Assessment and Plan: -continue with home inhalers. -continue with Singulair (9) Hypertension: Code(s): I10 - Essential (primary) hypertension Status: Acute Assessment and Plan: -patient's blood pressure is on the soft side today. Continue with Coreg if blood pressure allows. -Lasix is on hold at this time. (10) Anxiety: Code(s): F41.9 - Anxiety disorder, unspecified Status: Acute Assessment and Plan: -continue with alprazolam (11) Insulin dependent diabetes mellitus: Status: Acute Assessment and Plan: -check A1c. -Accu-Cheks AC and HS with sliding scale insulin moderate dose. -pharmacy to dose her long-acting insulin. -her blood sugars in the 200s this evening. (12) Bipolar disorder: Code(s): F31.9 - Bipolar disorder, unspecified Status: Acute Assessment and Plan: -continue with mirtazapine -continue with sertraline -continue with Depakote and check levels Subjective Date/time seen: 05/28/25 13:41 Interval history: Patient was seen during the morning rounds today. Has nausea and vomiting No sob or chest pain Review of Systems Review of Systems: All systems reviewed & are unremarkable except as noted in HPI and below (the history and physical exam.) Constitutional: Constitutional: Reports as per HPI and Reports no additional constitutional complaints Eyes: Eyes: Reports as per HPI and Reports no additional eye complaints ENT: Reports system reviewed and no additional complaints, except as documented and Reports Normal hearing present Cardiovascular: Cardiovascular: Reports no additional cardiovascular complaints Respiratory: Respiratory: Reports as per HPI and Reports no additional respiratory complaints Gastrointestinal: Gastrointestinal: Reports as per HPI and Reports no additional gastrointestinal complaints Genitourinary: Genitourinary: Reports no additional female genitourinary complaints Musculoskeletal: Musculoskeletal: Reports no additional musculoskeletal complaints Integumentary/Breasts: Skin/Breast: Reports system reviewed and no additional complaints, except as docu Neurologic: Reports system reviewed and no additional complaints, except as documented and Reports Normal hearing present Psychiatric: Psychiatric: Reports no additional psychiatric complaints and Reports as per HPI Hematologic/Lymphatic: Hematologic/Lymphatic: Reports no additional hematologic/lymphatic complaints Allergic/Immunologic: Allergic/Immunologic: Reports no additional allergic/immunologic complaints Exam Const: General: cooperative, no acute distress, well developed, alert, awake, Physically active, anxious, ill appearing, average body habitus and well nourished Nutritional Appearance: average body habitus and well nourished Orientation/consciousness: oriented to person, oriented to place, oriented to time and patient oriented x3 Limitations: no limitations HENMT: Head: normal to inspection, No palpable skull fracture present and normocephalic Eyes: General: appearance normal, both eyes and all related structures Alignment and Position: alignment normal Periorbital: periorbital findings normal Pupils: Equal, round and reactive pupils present Neck: Neck: normal visual inspection, full ROM and no lymphadenopathy Chest: Chest palpation & inspection: normal inspection of the chest Resp: Effort & Inspection: normal respiratory effort Auscultation: clear to auscultation bilaterally Cardio: Palpation: normal PMI Rhythm: regular rhythm Heart sounds: S1 normal heart sound present and S2 normal heart sound present Peripheral pulses: Peripheral pulses 2+ throughout GI: Inspection: normal to inspection Auscultation: normal bowel sounds Rectal Exam: deferred Other: Mild abdominal tenderness with deep palpation to right lower and left lower quadrant. Skin: General skin exam: normal color Lesions: no lesions Rashes: no rashes Trauma: no lacerations or abrasions Wounds: no wounds Hair: normal Nails: normal Neuro: General: oriented to person, oriented to place, oriented to time and patient oriented x3 Cranial nerves: Yes Equal, round and reactive pupils present and Yes Normal hearing present Cognition (Neuro): normal cognition Speech: normal speech Gait exam (Neuro): Normal gait present Motor exam (neuro): 5/5 motor strength present throughout Sensory Exam: normal sensation Psych: Appearance: grossly normal Mental Status: mental status grossly normal Speech and movement: Normal speech and movement present Affect: normal affect Attitude: cooperative Thought process: Normal thought process present Insight: Good insight present (Psych) Judgement: Good judgement present (Psych) Objective Data Vital Signs Vital Signs: Vital Signs - 24 hr 05/27/25 13:49 05/27/25 13:52 05/27/25 17:13 Temperature 36.6 C Pulse Rate 108 H 99 105 H Respiratory Rate 18 20 Blood Pressure 96/57 L 185/105 H 171/100 H Pulse Oximetry 100 100 Oxygen Delivery Room Air 05/27/25 17:14 05/27/25 19:00 05/27/25 19:54 Temperature 37.0 C Pulse Rate 105 H 108 H Respiratory Rate 20 12 Blood Pressure 170/100 H 185/93 H 101/64 Pulse Oximetry 100 97 Oxygen Delivery Room Air 05/27/25 20:00 05/27/25 21:12 05/28/25 00:00 Temperature 37.2 C 37.0 C Pulse Rate 107 H 97 107 H Respiratory Rate 20 16 18 Blood Pressure 123/63 119/79 111/68 Pulse Oximetry 99 96 99 Oxygen Delivery 05/28/25 00:05 05/28/25 04:00 05/28/25 07:58 Temperature 36.9 C Pulse Rate 109 H 112 H Respiratory Rate 18 Blood Pressure 128/74 133/73 Pulse Oximetry 97 98 Oxygen Delivery Room Air 05/28/25 08:00 05/28/25 08:28 05/28/25 11:29 Temperature Pulse Rate 112 H 112 H Respiratory Rate 18 Blood Pressure 185/94 H Pulse Oximetry 99 Oxygen Delivery Room Air 05/28/25 12:00 05/28/25 12:56 Temperature 35.9 C L Pulse Rate 109 H Respiratory Rate 18 18 Blood Pressure 195/113 H Pulse Oximetry 99 100 Oxygen Delivery Intake/Output Intake/Output: Intake & Output 05/25/25 05/26/25 05/27/25 05/28/25 23:59 23:59 23:59 23:59 Intake Total 1999 2587.5 Balance 1999 2587.5 Meds/Results Medications: Active Medications Generic Name Dose Route Start Last Admin Trade Name Freq PRN Reason Stop Dose Admin Alprazolam 0.5 mg 05/27/25 22:45 05/28/25 04:38 Alprazolam (*Crx) 0.5 Mg Tablet PO 0.5 mg TID PRN Administration Anxiety Lipase/Protease/Amylase 5 cap 05/28/25 08:00 05/28/25 12:38 Lipase/Amylase/Protease 12,000 Units Cap PO Not Given TIDWM JJ Aspirin 81 mg 05/28/25 09:00 05/28/25 08:28 Aspirin 81 Mg Enteric Tablet PO 81 mg DAILY JJ Administration Atorvastatin Calcium 20 mg 05/28/25 09:00 05/28/25 08:28 Atorvastatin 20 Mg Tablet PO 20 mg DAILY JJ Administration Azathioprine 50 mg 05/28/25 09:00 05/28/25 08:29 Azathioprine 50 Mg Tablet PO 50 mg DAILY JJ Administration Carvedilol 6.25 mg 05/28/25 09:00 05/28/25 08:28 Carvedilol 6.25 Mg Tablet PO 6.25 mg Q12HR JJ Administration Cyanocobalamin 1,000 mcg 05/28/25 09:00 05/28/25 08:28 Cyanocobalamin 1,000 Mcg Tablet PO 1,000 mcg DAILY JJ Administration Dextrose 12.5 gm 05/27/25 22:44 Dextrose 50% 25 Gm/50 Ml Syringe IV PUSH PRN PRN Hypoglycemia Protocol Divalproex Sodium 500 mg 05/27/25 22:50 05/28/25 12:[address] 250 Mg Tabec PO Not Given TID JJ Famotidine 20 mg 05/28/25 09:00 05/28/25 08:29 Famotidine 20 Mg/2 Ml Vial IV PUSH 20 mg Q12HR JJ Administration Fluticasone Propionate 1 spray 05/27/25 22:45 Fluticasone Propionate 0.05% Na Spr 16 Gm Btl (*Bkc) NASAL Q12HR PRN RHINITIS Gabapentin 100 mg 05/27/25 22:50 05/28/25 12:39 Gabapentin 100 Mg Capsule PO Not Given TID JJ Glucagon 1 mg 05/27/25 22:44 Glucagon For Inj 1 Mg Vial IM PRN PRN Hypoglycemia Protocol Glucose 15 gm 05/27/25 22:44 Glucose Oral Gel 15 Gm Of Glucse In 37.5 Gm Tube PO PRN PRN Hypoglycemia Protocol Hydralazine HCl 50 mg 05/28/25 17:00 05/28/25 13:12 Hydralazine Hcl 50 Mg Tablet PO 50 mg BID JJ Administration Hydromorphone HCl 0.5 mg 05/28/25 13:36 Hydromorphone Hcl Inj (*Crx) 1 Mg/Ml Syr IV PUSH Q4H PRN Pain Rated 7-10 Sodium Chloride 1,000 mls @ 125 mls/hr 05/27/25 19:00 05/28/25 11:01 Normal Saline Iv IV CONT 125 mls/hr .Q8H JJ Administration Dextrose 1,000 mls @ 100 mls/hr 05/27/25 22:44 Dextrose 5% 1,000 Ml IVPB PRN PRN Hypoglycemia Protocol Insulin Aspart 3 - 6 units 05/28/25 08:00 05/28/25 11:38 Insulin Aspart (*Bkc) 100 Units/Ml SUB-Q Not Given TIDWM JJ Protocol Insulin Glargine 19 units 05/28/25 09:00 05/28/25 08:29 Insulin Glargine (*Bkc) 100 Units/Ml SUB-Q 19 units DAILY JJ Administration Mirtazapine 15 mg 05/27/25 22:45 05/27/25 23:38 Mirtazapine 15 Mg Tablet BY MOUTH 15 mg HS JJ Administration Miscellaneous Information 0 each 05/27/25 23:20 05/28/25 09:48 Tacrolimus Xr- Please Send Home Suply To Pharmacy For Verification To Use While Inpatient. XX 06/26/25 23:19 Not Given CLARIFY JJ Montelukast Sodium 10 mg 05/28/25 09:00 05/28/25 08:28 Montelukast Sodium 10 Mg Tablet PO 10 mg DAILY JJ Administration Non-Formulary Medication 3 mg 05/28/25 09:00 Tacrolimus [Envarsus Xr] PO 06/27/25 08:59 DAILY [facility] Ondansetron HCl 4 mg 05/27/25 19:00 05/28/25 10:33 Ondansetron Inj 4 Mg/2 Ml Vial IV PUSH 4 mg Q4H PRN Administration Nausea Prednisone 5 mg 05/28/25 08:00 05/28/25 08:28 Prednisone 5 Mg Tablet PO 5 mg DAILY@0800 JJ Administration Saccharomyces Boulardii 250 mg 05/27/25 23:15 05/28/25 08:28 Saccharomyces Boulardii 250 Mg Capsule PO 250 mg Q12HR JJ Administration Fluticasone/Salmeterol 2 puff 05/28/25 08:00 05/28/25 07:53 Fluticasone/Salmeterol 115-21 Mcg Inhaler 1 Puff INHALATION 2 puff Q12HRT JJ Administration Sertraline HCl 50 mg 05/28/25 09:00 05/28/25 08:28 Sertraline Hcl 50 Mg Tablet PO 50 mg DAILY JJ Administration Timolol Maleate 2 drop 05/28/25 09:00 05/28/25 08:30 Timolol Maleate 0.5% Op Soln 5 Ml Bottle EACH EYE 2 drop BID JJ Administration Tramadol HCl 100 mg 05/27/25 22:45 05/28/25 08:44 Tramadol Hcl (*Crx) 50 Mg Tablet PO 100 mg Q6H PRN Administration Pain Vitamin D 50 mcg 05/28/25 09:00 05/28/25 08:28 Cholecalciferol (Vitamin D3) 25 Mcg (1,000 Units) Tablet PO 50 mcg DAILY JJ Administration Zolpidem Tartrate 10 mg 05/27/25 23:30 05/27/25 23:38 Zolpidem Tartrate (*Crx) 5 Mg Tablet PO 10 mg HS JJ Administration Radiology Results: ITS Impressions Abdomen/Pelvis CT 05/27/25 18:02 IMPRESSION: No acute abnormality is noted in the abdomen and pelvis. Small hiatal hernia with reflux. Thickening of the gastric wall may be either due to under distention versus gastritis. Right pelvic kidney is unremarkable. Right kidney is absent. Left kidney is atrophied. All CT scans at this facility are performed using low dose modulation techniques as appropriate to perform exam including the following: automated exposure control; use of iterative reconstruction technique; adjustment of the mA and/or kV according to patient size (this includes techniques or standardized protocols for targeted exams where dose is matched to indication/reason for exam). Labs Labs: Laboratory Results - last 24 hr 05/27/25 05/27/25 05/27/25 13:59 15:40 16:34 WBC 10.6 H RBC 4.31 Hgb 14.6 Hct 42.8 MCV 99.3 MCH 33.9 MCHC 34.1 RDW 13.1 Plt Count 133 L MPV 11.3 H Immature Gran % (Auto) Not Reportable Neut % (Auto) Not Reportable Lymph % (Auto) Not Reportable [place] % (Auto) Not Reportable Eos % (Auto) Not Reportable Baso % (Auto) Not Reportable Lymph # (Auto) Not Reportable [place] # (Auto) Not Reportable Eos # (Auto) Not Reportable Baso # (Auto) Not Reportable Abs Immat Gran (auto) Not Reportable Absolute Neuts (auto) Not Reportable Absolute Nucleated RBC Not Reportable Total Counted 100 Neutrophils % (Manual) 62 Band Neutrophils % 7 H Lymphocytes % (Manual) 17 L Monocytes % (Manual) 9 Eosinophils % (Manual) 5 H Nucleated RBC % Not Reportable Abs Neuts (Manual) 7.31 H Abs Lymphs (Manual) 1.80 Abs Monocytes (Manual) 0.95 H Absolute Eos (Manual) 0.53 H Platelet Estimate Adequate % Immature Plt Fraction 5.4 Schistocytes None seen Sodium 133 L Potassium 3.7 Chloride 92 L Carbon Dioxide 27 Anion Gap 14 H BUN 19 H Creatinine 1.13 H Estim Creat Clear Calc 47 Estimated GFR 51 L Glucose 370 H POC Capillary Glucose 236 H Hemoglobin A1c 6.2 H Lactic Acid Calcium 9.7 Magnesium Total Bilirubin 1.1 AST 29 ALT 14 Alkaline Phosphatase 60 Total Protein 8.7 H Albumin 4.5 Lipase 11 L TSH (Reflex) Urine Color Urine Appearance Urine pH Ur Specific [place]ai Urine Protein Urine Glucose (UA) Urine Ketones Ur Blood (Man) Urine Nitrate Urine Bilirubin Urine Urobilinogen Leukocyte Esterase Rfl Urine RBC Urine WBC Ur Squamous Epith Cells Urine Bacteria Urine Casts Stl Occult Blood (IFOB) Influenza A (RT-PCR) Influenza B (RT-PCR) RSV (RT-PCR) SARS-CoV-2 RNA (RT-PCR) 05/27/25 05/27/25 05/27/25 18:06 19:22 19:23 WBC RBC Hgb Hct MCV MCH MCHC RDW Plt Count MPV Immature Gran % (Auto) Neut % (Auto) Lymph % (Auto) [place] % (Auto) Eos % (Auto) Baso % (Auto) Lymph # (Auto) [place] # (Auto) Eos # (Auto) Baso # (Auto) Abs Immat Gran (auto) Absolute Neuts (auto) Absolute Nucleated RBC Total Counted Neutrophils % (Manual) Band Neutrophils % Lymphocytes % (Manual) Monocytes % (Manual) Eosinophils % (Manual) Nucleated RBC % Abs Neuts (Manual) Abs Lymphs (Manual) Abs Monocytes (Manual) Absolute Eos (Manual) Platelet Estimate % Immature Plt Fraction Schistocytes Sodium Potassium Chloride Carbon Dioxide Anion Gap BUN Creatinine Estim Creat Clear Calc Estimated GFR Glucose POC Capillary Glucose 306 H Hemoglobin A1c Lactic Acid Calcium Magnesium Total Bilirubin AST ALT Alkaline Phosphatase Total Protein Albumin Lipase TSH (Reflex) Urine Color Yellow Urine Appearance Clear Urine pH 8.5 Ur Specific [place] 1.027 Urine Protein Negative Urine Glucose (UA) 3+ H Urine Ketones 2+ H Ur Blood (Man) Trace Urine Nitrate Negative Urine Bilirubin Negative Urine Urobilinogen 0.2 Leukocyte Esterase Rfl Negative Urine RBC 0-2 Urine WBC 0-5 Ur Squamous Epith Cells None seen Urine Bacteria None seen Urine Casts 0-2 Stl Occult Blood (IFOB) Influenza A (RT-PCR) Negative Influenza B (RT-PCR) Negative RSV (RT-PCR) Negative SARS-CoV-2 RNA (RT-PCR) Negative 05/27/25 05/28/25 05/28/25 21:58 00:06 04:56 WBC RBC Hgb Hct MCV MCH MCHC RDW Plt Count MPV Immature Gran % (Auto) Neut % (Auto) Lymph % (Auto) [place] % (Auto) Eos % (Auto) Baso % (Auto) Lymph # (Auto) [place] # (Auto) Eos # (Auto) Baso # (Auto) Abs Immat Gran (auto) Absolute Neuts (auto) Absolute Nucleated RBC Total Counted Neutrophils % (Manual) Band Neutrophils % Lymphocytes % (Manual) Monocytes % (Manual) Eosinophils % (Manual) Nucleated RBC % Abs Neuts (Manual) Abs Lymphs (Manual) Abs Monocytes (Manual) Absolute Eos (Manual) Platelet Estimate % Immature Plt Fraction Schistocytes Sodium 137 Potassium 2.8 L* Chloride 107 Carbon Dioxide 23 Anion Gap 7 BUN 11 D Creatinine 0.69 L Estim Creat Clear Calc 74 Estimated GFR > 60 Glucose 140 H POC Capillary Glucose 221 H Hemoglobin A1c Lactic Acid Calcium 6.9 L Magnesium Total Bilirubin AST ALT Alkaline Phosphatase Total Protein Albumin Lipase < 10 L TSH (Reflex) Urine Color Urine Appearance Urine pH Ur Specific [place] Urine Protein Urine Glucose (UA) Urine Ketones Ur Blood (Man) Urine Nitrate Urine Bilirubin Urine Urobilinogen Leukocyte Esterase Rfl Urine RBC Urine WBC Ur Squamous Epith Cells Urine Bacteria Urine Casts Stl Occult Blood (IFOB) Positive H Influenza A (RT-PCR) Influenza B (RT-PCR) RSV (RT-PCR) SARS-CoV-2 RNA (RT-PCR) 05/28/25 05/28/25 05/28/25 05:14 08:03 11:30 WBC 6.7 RBC 3.38 L Hgb 11.5 L D Hct 34.5 L MCV 102.1 H MCH 34.0 MCHC 33.3 RDW 13.6 Plt Count 141 L MPV 10.2 Immature Gran % (Auto) Neut % (Auto) Lymph % (Auto) [place] % (Auto) Eos % (Auto) Baso % (Auto) Lymph # (Auto) [place] # (Auto) Eos # (Auto) Baso # (Auto) Abs Immat Gran (auto) Absolute Neuts (auto) Absolute Nucleated RBC Total Counted Neutrophils % (Manual) Band Neutrophils % Lymphocytes % (Manual) Monocytes % (Manual) Eosinophils % (Manual) Nucleated RBC % Abs Neuts (Manual) Abs Lymphs (Manual) Abs Monocytes (Manual) Absolute Eos (Manual) Platelet Estimate % Immature Plt Fraction Schistocytes Sodium 135 L Potassium 4.1 Chloride 102 Carbon Dioxide 25 Anion Gap 8 BUN 10 Creatinine 0.88 Estim Creat Clear Calc 59 Estimated GFR > 60 Glucose 176 H POC Capillary Glucose 176 H 201 H Hemoglobin A1c Lactic Acid 1.0 Calcium 8.4 Magnesium 1.5 L Total Bilirubin AST ALT Alkaline Phosphatase Total Protein Albumin Lipase TSH (Reflex) 0.668 Urine Color Urine Appearance Urine pH Ur Specific [place] Urine Protein Urine Glucose (UA) Urine Ketones Ur Blood (Man) Urine Nitrate Urine Bilirubin Urine Urobilinogen Leukocyte Esterase Rfl Urine RBC Urine WBC Ur Squamous Epith Cells Urine Bacteria Urine Casts Stl Occult Blood (IFOB) Influenza A (RT-PCR) Influenza B (RT-PCR) RSV (RT-PCR) SARS-CoV-2 RNA (RT-PCR) Quality VTE Prophylaxis VTE prophylaxis: mechanical ordered
--- NOTE | 2025-05-28 16:27 | PC.NURSE ---
Glucose 209. Novolog 3 units SQ as per protocol ordered. Patient refused.
[2025-05-28] MEDS: MIRTAZAPINE 15 MG TABLET BY MOUTH (20:28)
[2025-05-28] MEDS: ZOLPIDEM TARTRATE (*CRX) 5 MG TABLET 10 MG PO (22:26)
[2025-05-29] MEDS: HYDROmorphone HCL INJ (*CRX) 1 MG/ML SYR 0.5 MG IV PUSH ×2 (02:31→06:34)
[2025-05-29] MEDS: SODIUM CHLORIDE 0.9% IV 1,000 ML 125 ML IV CONT (02:37)
[2025-05-29] MEDS: traMADol HCL (*CRX) 50 MG TABLET 100 MG PO (03:57)
[2025-05-29 04:00] VITALS: BP 163/84; PULSE 89; RESP 16; TEMP 37; O2SAT 98
[2025-05-29 06:31] VITALS: BP 171/88; PULSE 89; RESP 16; TEMP 36.9; O2SAT 100
[2025-05-29] MEDS: FLUTICASONE/SALMETEROL 115-21 MCG INHALER 1 PUFF 2 PUFF INHALATION (07:34)
[2025-05-29] MEDS: TIMOLOL MALEATE 0.5% OP SOLN 5 ML BOTTLE 2 DROP EACH EYE (08:48)
[2025-05-29 08:49] VITALS: PULSE 89
[2025-05-29] MEDS: DIVALPROEX SODIUM DR 250 MG TABEC 500 MG PO (08:49)
[2025-05-29] MEDS: SERTRALINE HCL 50 MG TABLET PO (08:49)
[2025-05-29] MEDS: MONTELUKAST SODIUM 10 MG TABLET PO (08:49)
[2025-05-29] MEDS: SACCHAROMYCES BOULARDII 250 MG CAPSULE PO (08:49)
[2025-05-29] MEDS: ASPIRIN 81 MG ENTERIC TABLET PO (08:49)
[2025-05-29] MEDS: CYANOCOBALAMIN 1,000 MCG TABLET 1000 MCG PO (08:49)
[2025-05-29] MEDS: LIPASE/AMYLASE/PROTEASE 12,000 UNITS CAP 5 CAP PO (08:49)
[2025-05-29] MEDS: CHOLECALCIFEROL (VITAMIN D3) 25 MCG (1,000 UNITS) TABLET 50 MCG PO (08:49)
[2025-05-29] MEDS: ATORVASTATIN 20 MG TABLET PO (08:50)
[2025-05-29] MEDS: FAMOTIDINE 20 MG/2 ML VIAL IV PUSH (08:50)
[2025-05-29] MEDS: GABAPENTIN 100 MG CAPSULE PO (08:50)
--- NOTE | 2025-05-29 08:52 | PM.DS ---
DS: Admitting Diagnosis Discharge Date 05/29/2025 Admitting Diagnosis Acute kidney injury Intractable vomiting DS: Discharge Diagnosis Discharge Diagnosis (1) DAREK (acute kidney injury): Code(s): N17.9 - Acute kidney failure, unspecified Status: Acute Assessment and Plan: -creatinine 1.13 with BUN of 19 and a GFR 51 -patient's creatinine level was previously listed is 1.05 otherwise is within normal limits. -her last GFR was 55 with previous normal range. -she has intractable nausea and vomiting with diarrhea. -continue with IV fluid -patient stated that her nausea vomiting and diarrhea have stopped. -daily BMPs -the patient was admitted due to the intractable nausea vomiting and diarrhea and the fact that she has had a kidney transplant. -hold Lasix for now. (2) Intractable vomiting with nausea: Code(s): R11.2 - Nausea with vomiting, unspecified Status: Acute Assessment and Plan: -the patient denies any further nausea and vomiting at this time. She complains of rectus abdominus muscle pain. She stated that she has abdominal pain due to vomiting. -continue to monitor electrolytes daily and replace as needed. -continue with IV fluid -stool samples are pending. -CT scan shows possible gastritis. -check for H pylori -stool specimens are pending -IV Pepcid -monitor I and o closely -continue with Zofran previous QTC was 488 -continue with probiotic (3) Pancreatic insufficiency: Code(s): K86.89 - Other specified diseases of pancreas Status: Acute Assessment and Plan: -continue with home medication of zenpep, may use formulary doses are home doses. -check daily lipase (4) Intractable abdominal pain: Code(s): R10.9 - Unspecified abdominal pain Status: Acute Assessment and Plan: -CT scan was read as the followingCT was read asNo acute abnormality is noted in the abdomen and pelvis. Small hiatal hernia with reflux. Thickening of the gastric wall may be either due to under distention versus gastritis. Right pelvic kidney is unremarkable. Right kidney is absent. Left kidney is atrophied. -continue with home pain medication. -continue with Ativan -IV Pepcid -patient was given several doses of Dilaudid, her blood pressure is low at this time. The patient stated that she has more of muscle skeletal pain to her lower abdomen. May consider muscle relaxer. However the patient is on multiple medications at this point. (5) History of kidney transplant: Onset Date: 02/2019 Code(s): Z94.0 - Kidney transplant status Status: Acute Assessment and Plan: -may continue with home medication of Envarsus XR. The patient stated that she does have these with her. -continue with imuran -continue with prednisone (6) Dehydration: Code(s): E86.0 - Dehydration Status: Acute Assessment and Plan: -continue with IV fluids -continue to monitor electrolytes and replenish as necessary. (7) Peripheral neuropathy: Code(s): G62.9 - Polyneuropathy, unspecified Status: Acute Assessment and Plan: -continue with gabapentin. (8) Chronic obstructive pulmonary disease: Code(s): J44.9 - Chronic obstructive pulmonary disease, unspecified Status: Acute Assessment and Plan: -continue with home inhalers. -continue with Singulair (9) Hypertension: Code(s): I10 - Essential (primary) hypertension Status: Acute Assessment and Plan: -patient's blood pressure is on the soft side today. Continue with Coreg if blood pressure allows. -Lasix is on hold at this time. (10) Anxiety: Code(s): F41.9 - Anxiety disorder, unspecified Status: Acute Assessment and Plan: -continue with alprazolam (11) Insulin dependent diabetes mellitus: Status: Acute Assessment and Plan: -check A1c. -Accu-Cheks AC and HS with sliding scale insulin moderate dose. -pharmacy to dose her long-acting insulin. -her blood sugars in the 200s this evening. (12) Bipolar disorder: Code(s): F31.9 - Bipolar disorder, unspecified Status: Acute Assessment and Plan: -continue with mirtazapine -continue with sertraline -continue with Depakote and check levels DS: Summary Hospital Course Reason for hospitalization: Acute kidney injury Intractable vomiting Hospital Course: 50 years old female admitted complained of having abdominal pain nausea and vomiting. Workup in the also was negative. Patient had mild dehydration. Patient was given IV hydration and pain medication. Patient was given nausea medication. Today patient is feeling better patient lab results are normal. Patient discharged home stable condition. Follow-up scheduled Status at Discharge Cognitive/behavioral status at discharge: Stable Time Spent with Patient Time attestation: Total time spent providing and/or coordinating discharge services: 30 minutes Exam Const: General: cooperative, no acute distress, well developed, alert, awake, Physically active, anxious, ill appearing, average body habitus and well nourished Nutritional Appearance: average body habitus and well nourished Orientation/consciousness: oriented to person, oriented to place, oriented to time and patient oriented x3 Limitations: no limitations HENMT: Head: normal to inspection, No palpable skull fracture present and normocephalic Eyes: General: appearance normal, both eyes and all related structures Alignment and Position: alignment normal Periorbital: periorbital findings normal Pupils: Equal, round and reactive pupils present Neck: Neck: normal visual inspection, full ROM and no lymphadenopathy Chest: Chest palpation & inspection: normal inspection of the chest Resp: Effort & Inspection: normal respiratory effort Auscultation: clear to auscultation bilaterally Cardio: Palpation: normal PMI Rhythm: regular rhythm Heart sounds: S1 normal heart sound present and S2 normal heart sound present Peripheral pulses: Peripheral pulses 2+ throughout GI: Inspection: normal to inspection Auscultation: normal bowel sounds Rectal Exam: deferred Other: Mild abdominal tenderness with deep palpation to right lower and left lower quadrant. Skin: General skin exam: normal color Lesions: no lesions Rashes: no rashes Trauma: no lacerations or abrasions Wounds: no wounds Hair: normal Nails: normal Neuro: General: oriented to person, oriented to place, oriented to time and patient oriented x3 Cranial nerves: Yes Equal, round and reactive pupils present and Yes Normal hearing present Cognition (Neuro): normal cognition Speech: normal speech Gait exam (Neuro): Normal gait present Motor exam (neuro): 5/5 motor strength present throughout Sensory Exam: normal sensation Psych: Appearance: grossly normal Mental Status: mental status grossly normal Speech and movement: Normal speech and movement present Affect: normal affect Attitude: cooperative Thought process: Normal thought process present Insight: Good insight present (Psych) Judgement: Good judgement present (Psych) DS: Data Data Completed and Pending Labs on day of discharge: Labs from last 24 hours 05/28/25 05/28/25 05/28/25 20:37 16:24 11:30 POC Capillary Glucose 154 H 209 H 201 H Discharge Plan Discharge Attending physician on discharge: Yifan Cortes Discharging Clinician: Yifan Cortes Patient Disposition: Home Activity: as tolerated Diet: as tolerated Patient Instructions: Antibiotic Form Patient Language: Guatemalan Stand Alone Forms: General Discharge Information Follow-up/Referrals: Nga,Ramon Cedeno MD [Primary Care Provider] Discharge Medications: Continued zolpidem [Ambien] 10 mg tablet 10 mg PO HS azathioprine 50 mg tablet 50 mg PO DAILY aspirin [Adult Aspirin Regimen] 81 mg tablet,delayed release (DR/EC) 81 mg PO DAILY omeprazole 20 mg capsule,delayed release(DR/EC) 20 mg PO DAILY atorvastatin 20 mg Tablet 20 mg PO DAILY cyanocobalamin (vitamin B-12) 500 mcg Tablet 1,000 mcg PO DAILY montelukast 10 mg Tablet 10 mg PO DAILY gabapentin 100 mg Capsule 100 mg PO TID epinephrine 0.3 mg/0.3 mL Auto-Injector 0.3 mg IM Q5-15M PRN (Reason: Anaphylaxis) Patient Comments: Hasn't taken in years Rx Instructions: do not exceed 3 doses per episode sertraline 50 mg Tablet 50 mg PO DAILY (DME) pen needle, diabetic [BD Ultra-Fine Mini Pen Needle] 31 gauge x 3/16 Needle MISCELLANEOUS fluticasone furoate-vilanterol [Breo Ellipta] 100-25 mcg/dose Blister With Device 1 inh INHALATION DAILY Rx Instructions: INHALE 1 PUFF BY MOUTH DAILY- RINSE MOUTH WITH WATER AFTER USE. DO NOT SWALLOW (DME) FreeStyle Lynda 14 Day Sensor Kit MISCELLANEOUS tramadol 50 mg Tablet 100 mg PO Q6H PRN (Reason: Pain) cholecalciferol (vitamin D3) [Vitamin D3] 50 mcg (2,000 unit) Tablet 50 mcg PO DAILY insulin glargine U-300 conc [Toujeo SoloStar U-300 Insulin] 300 unit/mL (1.5 mL) Insulin Pen 24 unit SUBCUT DAILY Rx Instructions: INJECT 28 UNITS UNDER SKIN ONCE DAILY. MAX OF 30 UNITS PER DAY prednisone 5 mg tablet 5 mg PO DAILY divalproex 500 mg tablet,delayed release (DR/EC) 500 mg PO TID alprazolam 0.5 mg tablet 0.5 mg PO TID PRN (Reason: Anxiety) timolol maleate 0.5 % drops 2 drp EACH EYE BID Envarsus XR 1 mg tablet extended release 24 hr 3 mg PO DAILY Rx Instructions: TAKE 3 1MG TABLETS BY MOUTH IN THE GRINDER AND PLATER BEFORE BREAKFAST. carvedilol [Coreg] 6.25 mg tablet 6.25 mg PO DAILY Baqsimi 3 mg/actuation spray,non-aerosol 3 mg INTRANASAL PRN PRN (Reason: Hypoglycemia) fluticasone propionate 50 mcg/actuation [place],Suspension 2 spray INTRANASAL BID PRN (Reason: RHINITIS) Rx Instructions: administer 2 sprays into each nostril 2 times a day as needed for rhinits insulin lispro 100 unit/mL insulin pen, half-unit See Rx Instructions .ROUTE .COMPLEX Rx Instructions: 1:13 carb ratio with breakfast, 1:15 carb ratio with lunch and 1:13 carb ratio with supper plus sliding scale 1 unit for every 50 points greater than 150; MDD is 30 units furosemide [Lasix] 20 mg tablet 20 mg PO DAILY ondansetron 4 mg tablet,disintegrating 4 mg PO Q6H PRN (Reason: nausea and vomiting) Qty: 10 0RF oxycodone-acetaminophen 5-325 mg Tablet 1 tablet PO Q4H PRN (Reason: Pain Rated 7-10) Qty: 10 0RF Saccharomyces boulardii [Florastor] 250 mg Capsule 250 mg PO BID Qty: 14 0RF Zenpep 60,000-189,600- 252,600 unit capsule,delayed release(DR/EC) 1 cap PO .ac Qty: 300 4RF Rx Instructions: administer with meals and/or snacks mirtazapine 15 mg tablet See Rx Instructions .ROUTE .COMPLEX Qty: 90 1RF Dose Instruction: TAKE 1 TABLET BY MOUTH AT BEDTIME. Rx Instructions: TAKE 1 TABLET BY MOUTH AT BEDTIME. Date of admission: 05/27/25 19:01 Primary Care Provider: Nga,Ramon Cedeno Admitting Provider: Archie Johnson Attending physician on admission: Archie Johnson Condition: Stable Quality VTE Prophylaxis VTE prophylaxis: mechanical ordered
[2025-05-29] MEDS: INSULIN GLARGINE (*BKC) 100 UNITS/ML 19 UNITS SUB-Q (08:56)
== END 2025-05-29 10:22 | disposition home or self-care (01) ==
LOC: ANHED 16:03 → ANH3MED 05-28 10:43
PROVIDERS: Nurse Practitioner; Admitting Provider Internal Medicine; Emergency Provider Emergency Medicine; PCP Internal Medicine; Visit Provider Internal Medicine
DX: N17.9 Acute kidney failure, unspecified (principal); R11.2 Nausea with vomiting, unspecified; R10.9 Unspecified abdominal pain; K44.9 Diaphragmatic hernia without obstruction or gangrene; E86.0 Dehydration; G62.9 Polyneuropathy, unspecified; I10 Essential (primary) hypertension; F31.9 Bipolar disorder, unspecified; F41.9 Anxiety disorder, unspecified; K86.89 Other specified diseases of pancreas; J44.9 Chronic obstructive pulmonary disease, unspecified; E10.21 Type 1 diabetes mellitus with diabetic nephropathy; K31.84 Gastroparesis; F12.90 Cannabis use, unspecified, uncomplicated; Z20.822 Contact with and (suspected) exposure to COVID-19; Z90.5 Acquired absence of kidney; Z94.0 Kidney transplant status; Z90.49 Acquired absence of other specified parts of digestive tract; Z79.82 Long term (current) use of aspirin; Z79.624 Long term (current) use of inhibitors of nucleotide synthesis; Z79.51 Long term (current) use of inhaled steroids; Z79.4 Long term (current) use of insulin; Z79.891 Long term (current) use of opiate analgesic; Z79.52 Long term (current) use of systemic steroids; Z79.621 Long term (current) use of calcineurin inhibitor; Z87.891 Personal history of nicotine dependence; Z83.3 Family history of diabetes mellitus; Z82.49 Family history of ischemic heart disease and other diseases of the circulatory system; Z82.69 Family history of other diseases of the musculoskeletal system and connective tissue; Z83.6 Family history of other diseases of the respiratory system
CPT/HCPCS: 36415; 74177; 80048; 80053; 80165; 81001; 82274; 82948; 83036; 83605; 83690; 83735; 84443; 85025; 85027; 85055; 87045; 87046; 87427; 87637; 94640; 96361; 96374; 96375; 96376; 99285; A9270; G0378; J1171; J1200; J1815; J2405; J2765; J7030; J7120; J7512; Q9967

== ENCOUNTER 2025-06-05 12:39 | Emergency (ER) | payer MEDICARE, MEDICAID, SELFPAY ==
--- NOTE | ~2025-06-05 | CT_ITS ---
Juaquin Rey EXAMINATION: CT abdomen pelvis w con COMPARISON: None HISTORY: abd pain, vomiting TECHNIQUE: Axial images were obtained through the abdomen, pelvis post administration of IV contrast. Oral contrast was also administered. Coronal reconstruction images were obtained from the axial views. CT scan performed using dose optimization techniques including the following automated exposure control; adjustment of mA and/or kV; use of iterative reconstruction technique. Automatic exposure control was used to reduce radiation dose. Permanent radiation dose record is archived to PACS. FINDINGS: CT abdomen: LUNG BASES: The lung bases are clear. The visualized portions of the heart and pericardium are unremarkable. LIVER: Minimal hepatic steatosis. SPLEEN: Unremarkable. KIDNEYS: There is a transplant kidney in the right lower quadrant. Right Kidney: Right kidney not identified, no abnormality in the right renal bed. Left Kidney: Left kidney atrophic. ADRENAL GLANDS: Unremarkable. PANCREAS: Atrophy of the pancreas noted. GALLBLADDER/BILIARY: Unremarkable. No biliary dilatation. STOMACH AND ESOPHAGUS: Visualized stomach and esophagus within normal limits. BOWEL/MESENTERY: Minimal thickening noted of the rectum and sigmoid colon. Remaining large bowel appears unremarkable. No diverticulitis. Mesentery normal. No thickening or dilated loops of small bowel. The appendix is not identified however there is no inflammation surrounding the cecum. ADENOPATHY/RETROPERITONEUM: No lymphadenopathy. AORTA/VASCULATURE: Normal caliber aorta. FREE FLUID OR FREE AIR: No free fluid.. CT pelvis: SOLID ORGANS/REPRODUCTIVE: Post hysterectomy. No adnexal mass. BLADDER: Within normal limits. OSSEOUS STRUCTURES: No acute osseous abnormality.No suspicious lesions. OVERLYING SOFT TISSUES: Unremarkable. IMPRESSION: 1. No acute intra-abdominal process. Incidental findings above Reviewed, dictated and finalized at location P. ICAL DOCUMENTATION MANAGER
[2025-06-05 12:40] VITALS: BP 195/111; PULSE 109; RESP 20; TEMP 36.7; O2SAT 100
[2025-06-05 13:23] LABS: Hematocrit 47.4 % (37.0-47.0); Hemoglobin 16.1 g/dL (12.0-15.0); Immature Granulocyte Percent A 0.5 % (0-0.5); Lymphocytes Absolute Auto 2.39 K/mm3 (0.9-3.2); Mean Corpuscular HGB Conc 34.0 g/dl (32-36); Mean Corpuscular Hemoglobin 33.5 pg (26-34); Mean Corpuscular Volume 98.8 fl (80-100); Nucleated Red Blood Cells Absolute Auto 0.000 K/mm3 (0.0-0.012); Nucleated Red Blood Cells Perc 0.0 % (0.0-0.2); Platelet Count Result 182 k/mm3 (150-375); Red Blood Count 4.80 M/mm3 (4.2-5.4); White Blood Count 8.5 K/mm3 (4.5-10.0)
--- NOTE | 2025-06-05 13:29 | PC.NURSE ---
1320: This RN attempted peripheral IV x1. Able to get some blood labs, but vein blew. IV removed. Pt. requesting ultrasound IV. MARY Villareal notified and to bedside for ultrasound IV placement and lab draw. Pt. also alerted this RN while drawing labs that she had a BM and needed cleaned up. Dirty depend removed. Pt. had 1 large, hard, brown BM. Pt. cleaned with soap and water. Clean depend applied. 1330: MARY Villareal at bedside attempting ultrasound IV.
--- NOTE | 2025-06-05 14:17 | PC.NURSE ---
Initial set of collected blood hemolyzed. Lab called to be alerted that 2nd set of blood was already sent down and was obtained from an ultrasound line. Per geotechnical laboratory technician, blood found and able to be run.
--- OUTSIDE RECORDS SUMMARY | 2025-06-05 14:18 | XMS_ITS | Clinical Summary ---
Author Organization [facility] Address [address] [place] [address] Care Team Providers Care Health Care Assistant Name Role Phone Ramon Sylvester MD Primary Care Provider [phone] Ramon Sylvester MD Unavailable [phone] Source Comments [facility],non-owned Affiliates and Associated Physician Practices is amultiple site organization consisting of ambulatory clinics and hospital sitesin [place], [place], [place] and [place]. This disclosure is being madepursuant to the Care Everywhere program and may not contain all information available regarding this patient. Last updated 18.[facility] Allergies Active Allergy Reactions Criticality Noted Date [...] MCG/ACT nasal sprayIndicatio ns:Nasal Signs and Symptoms Volcano 2 Sprays into each nostril once daily [...] topic Insurance MEDICARE [facility] Care Teams Health Care Assistant Relationship Specialty Start Date End Date Ramon Sylvester MD PCP - General Internal Medicine 10/19/16 Ramon Sylvester MD Internal Medicine 10/19/16
--- OUTSIDE RECORDS SUMMARY | 2025-06-05 14:18 | XMS_ITS ---
Author Organization [facility] Address [address] [place] [address] Care Team Providers Care Ignition Specialist Name Role Phone Ramon Sylvester MD Primary Care Provider Burak Blue MD Unavailable [phone] Juana Jimenez RN Unavailable Sylwia García MD Unavailable [phone] Igor Yeager DO Unavailable Cristina Boyer RN Unavailable Cyn Fang NP Unavailable Gavi Cervantes NP Unavailable Transplant Episode Kidney Recipient [facility] ([place], [place]) - [facility] Organ Received: Left Kidney Transplanted on 03/09/2019 Marked as Active Follow-up on 03/09/2019 Reason: Transplanted at [facility] Kidney CoordinatorJuana Jimenez RN Fax: N/A Email: N/A [place] Organ Diagnosis Organ Primary Contributory Kidney Diabetes [...] Fax Email Juana Jimenez RN Kidney Coordinator [phone] N/A N/A Cristina Boyer RN Secondary Coordinator Secondary Kidney Coordinator [phone] N/A N/A Burak Blue MD Referring Physician [phone] N/A Kristen Finley Primary Ring Maker N/A N/A N/A Jose De Jesus Barrios Secondary Ring Maker N/A N/A N/A Diane Salomon Volunteer Services Coordinator [phone] N/A N/A Juana Jimenez flooring helperEndocrinology Teacher [phone] N/A N/A Events Post-Transplant Pre-Transplant Admitted: 03/07/2019 Referred: 10/17/2017 Transplanted: 03/09/2019 Evaluation began: 8 Discharged: 03/12/2019 Committee: 12/08/2018 Center waitlisted: 9 Dialysis History Dialysis History Start End Type Comments Center 01/13/2018 03/09/2019 Peritoneal Dialysis [facility] Dialysis Center Information Center Phone Fax Address [facility] [phone] [facility] [id number]
--- OUTSIDE RECORDS SUMMARY | 2025-06-05 14:18 | XMS_ITS ---
Author Organization [facility] Address [address] [place] [address] Care Team Providers Care General Utility Machine Operator Name Role Phone Ramon Sylvester MD Primary Care Provider [phone] Burak Blue MD Unavailable [phone] Juana Jimenez RN Unavailable Sylwia García MD Unavailable [phone] Igor Yeager DO Unavailable [phone] Cristina Boyer RN Unavailable Cyn Fang NP Unavailable [phone] Gavi Cervantes NP Unavailable Active Problems Patient Care Coordination No te Formatting of this note migh t be different from the original. Lab: [facility]- [phone] Standing Orders q-monthly FK, q3-HgbA1C. Exp. 12/14/25 Home Health: [facility] Home Care Local Pharmacy:[facility] [...] months and has had multiple visit at [facility] in [place] with multiple abnormal urinalyses and recent cultures [...] home) Assessment & Plan (06/25/2023 3:24 PM LENS CLEANER): Continue Ambien Assessment & Plan (02/24/2023 2:03 AM CDT): Cont home ambien PRN, reduce 10mg -> 5mg Liver lesion, right lobe 10/06/2022 halfway current use of insulin 06/07/2022 Prolonged Q-T [...] hypoglycemia Assessment & Plan (08/08/2021 3:28 PM LENS CLEANER): -Affects post meal glucose readings -Closely monitor [...] 3:25 PM CDT): S/p right nephrectomy of [place] right kidney. POD1 N/V and Abd pain. [...] glucoses. Assessment & Plan (06/07/2022 5:24 PM LENS CLEANER): This affects her ability to see a [...] Stable. Assessment & Plan (06/03/2023 5:34 AM LENS CLEANER): Previous history of smoking. - Continue home inhalers and singulair. Essential hypertension 11/15/2019 Assessment & Plan (11/17/2024 3:59 PM CDT): BP at target Assessment & Plan (06/03/2023 5:41 AM LENS CLEANER): Hold amlodipine for soft blood pressures. Assessment [...] 11/15/2019 Assessment & Plan (06/03/2023 5:43 AM LENS CLEANER): Continue home statin. Assessment & Plan (02/24/2023 2:01 AM CDT): Cont home atorva 20mg. Assessment & Plan (11/05/2022 9:21 AM CDT): On atorvastatin 20mg. Optimize glycemic control. 10/2022- TG 173, HDL 66, LDL 66 Assessment & Plan (06/07/2022 5:29 PM LENS CLEANER): Continue statin therapy (atorvastatin 20mg) and optimize [...] stable. Assessment & Plan (06/03/2023 5:34 AM LENS CLEANER): - Continue home sertraline, nightly mirtazapine and [...] transplant evaluated pt in ED, following as emergency management consultant -per recs, will change envarsus [...] 11/17/2018 Assessment & Plan (06/25/2023 3:25 PM LENS CLEANER): Continue sertraline and Xanax Assessment & Plan (06/03/2023 5:33 AM LENS CLEANER): Continue home xanax PRN Assessment & Plan [...] Monitor Assessment & Plan (06/03/2023 5:41 AM LENS CLEANER): At home on glargine 28 units nightly [...] diabetes. Assessment & Plan (06/07/2022 5:38 PM LENS CLEANER): Hemoglobin A1c increased to 8.5% on 05/22/2022. [...] insulin. Assessment & Plan (08/08/2021 3:28 PM LENS CLEANER): -Currently taking MDI and using Lynda -A1C [...] control. Assessment & Plan (06/07/2022 5:25 PM LENS CLEANER): Managed by Dr. Bhatt. Needs optimal glycemic control. Assessment & Plan (03/23/2022 9:06 AM CDT): Managed by Dr. Bhatt. Needs optimal glycemic control Assessment & Plan (07/11/2020 5:49 PM LENS CLEANER): Resolved following course of antiviral therapy. 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 Assessment & Plan (06/07/2022 5:25 PM LENS CLEANER): Taking daily immunosuppressants which complicate glycemic management. Assessment & Plan (08/06/2021 3:09 PM LENS CLEANER): -halfway use of immunosuppressants and steroids complicates diabetes [...] has. I encouraged her to see an otr hazmat company driver again just to make sure that she does or does not need ongoing follow-up Assessment & Plan (08/06/2021 3:07 PM LENS CLEANER): -Patient is legally blind -CGM allows for [...] 06/25/2023 Assessment & Plan (06/03/2023 5:41 AM LENS CLEANER): Patient presenting with nausea and vomiting that [...] 06/25/2023 Assessment & Plan (06/03/2023 5:45 AM LENS CLEANER): Presenting with 1 week history of [place] [...] hypoglycemia. Assessment & Plan (06/07/2022 5:23 PM LENS CLEANER): Now improved, but still need to minimize risk of hypoglycemia. Assessment & Plan (03/23/2022 9:03 AM CDT): Now improved, but still need to minimize risk of hypoglycemia Non-intractable vomiting 03/28/2021 Overview (03/28/2021): Added automatically from request for surgery [id number] Colon cancer screening 03/28/202104/19 Overview (03/28/2021): Added automatically from request for surgery [id number] Gastroparesis 02/23/2021 06/25/2023 Assessment & Plan (02/20/2023 [...] 02/23/2021 Assessment & Plan (08/08/2021 3:29 PM LENS CLEANER): -BP today is 132/78 -Will continue same [...] scopolamine patch. She does not meet [facility] criteria for use of palonosetron. -ordered stool [...] 08/03/2020 Assessment & Plan (08/03/2020 3:05 PM LENS CLEANER): Plan is to give Augmentin 875/125 b.i.d. [...]
--- OUTSIDE RECORDS SUMMARY | 2025-06-05 14:18 | XMS_ITS | Data Portability ---
Author Organization [place] - [facility] [place], Main Office Address [address] [place] [address] Care Team Providers Care Magazine Publisher Name Role Phone EMY CHANEY Primary Care Provider [phone] Assessment Encounter Date Assessment Date Assessment LastModified by Organization Details LastModified Time 01/28/2024 01/28/2024 This note is dictated and transcribed by [employer]. Pipe Organ Mechanic Apprentice variances may occur. Despite proofreading, typographical errors may occur. Occasional wrong-word or 'lojne-m-hviy' substitutions may have occurred due to the inherent limitations of voice recording. Read the chart carefully and recognize, using context, where substitutions have occurred. Not available 01/28/2024 16:22:17 02/04/2024 02/04/2024 This note is dictated and transcribed by [employer]. Pipe Organ Mechanic Apprentice variances may occur. Despite proofreading, typographical errors may occur. Occasional wrong-word or 'typvb-e-zcsc' substitutions may have occurred due to the inherent limitations of voice recording. Read the chart carefully and recognize, using context, where substitutions have occurred. Not available 02/04/2024 10:05:41 05/05/2024 05/05/2024 This note is dictated and transcribed by [employer]. Pipe Organ Mechanic Apprentice variances may occur. Despite proofreading, typographical errors may occur. Occasional wrong-word or 'bhlfw-u-tmlk' substitutions may have occurred due to the inherent limitations of voice recording. Read the chart carefully and recognize, using context, where substitutions have occurred. Not available 05/05/2024 15:16:03 09/23/2024 09/23/2024 This note is dictated and transcribed by [employer]. Pipe Organ Mechanic Apprentice variances may occur. Despite proofreading, typographical errors may occur. Occasional wrong-word or 'enrlg-y-jghy' substitutions may have occurred due to the [...] 2 % topical cream 2024 025 [facility] #[id number], [address], [place], [address], 5 15:26:59 ketoconazol e 2 % topical cream 2023 024 [facility] #[id number], [address], [place], [address], 4 15:16:26 ketoconazol e 2 % topical cream 2023 024 [facility] #[id number], [address], [place], [address], 4 10:06:13 Patient TargetsNo targets recorded. Patient InstructionsNo instructions recorded. Reason for Referral None Reported. Results Created Date Observation Date Name Description Value Unit Range Abnormal Flag Note LastModifiedBy Organization Detail LastModifiedTime 10/21/1910/21/2023 US, duple x, arter ial, lower extre mity, compl ete No observ ation record ed. [email or web address] [facility] ([facility]) [address] [place], [address], 10/21/2023 13:31:53 10/21/19 24 10/21/2023 (BIANCA) ankle brach ial index * No observ ation record ed. [email or web address] [facility] ([facility]) [address] [place], [address], 10/21/2023 13:31:53 Result Notes None recorded. Problems Name Problem SNOMED Code Status Onset Date Resolution Date Notes Provider Name and Address Organization Details Recorded Time Tobacco user 591208683 Active Not Available [facility] 3 17:12:38 Disorder of shoulder 501166604 Active Not Available [facility] 3 17:12:38 Chronic obstructive pulmonary disease 23250215 Active Not Available [facility] 3 17:12:38 Bipolar disorder 12752363 Active Not Available [facility] 3 17:12:38 Backache 959070657 Active Not Available [facility] 3 17:12:38 Insomnia 630135069 Active Not Available [facility] 3 17:12:38 Raynaud's disease 871375121 Active Not Available [facility] 3 17:12:38 Blindness of one eye Active Not Available [facility] 3 17:12:38 Gastroesophag eal reflux disease 389877733 Active Not Available [facility] 3 17:12:39 Edema 874585785 Active Not Available [facility] 3 17:12:39 Low back pain 740343043 Active Not Available [facility] 3 17:12:39 Enthesopathy of hip region 60697268 Active Not Available [facility] 3 17:12:39 Osteoarthriti s 913903511 Active Not Available [facility] 3 17:12:39 Calcium deposits in tendon 824179235 Active Not Available [facility] 3 17:12:40 Pain of shoulder region 72621311 Active Not Available [facility] 3 17:12:40 Hyperlipidemi a 30040377 Active Not Available [facility] 3 17:12:40 Essential hypertension 38476052 Active Not Available [facility] 3 17:12:40 Diabetes mellitus 51369948 Active Not Available [facility] 3 17:12:40 Smoker 12812435 Active Not Available [facility] 3 17:12:40 Hyperglycemia 69370162 Active Not Available [facility] 3 17:12:40 Neck pain 50849944 Active Not Available [facility] 3 17:12:40 Metatarsalgia 36219304 Active 2018 Not Available [facility] 3 17:12:38 Hypercholeste rolemia 73643602 Active 2018 Not Available [facility] 3 17:12:38 Heartburn 10878520 Active 2018 Not Available [facility] 3 17:12:38 Asthma 803493614 Active 2018 Not Available [facility] 3 17:12:38 Fibromyalgia 171595486 Active 2018 Not Available [facility] 3 17:12:38 Bronchitis 21748127 Active 2018 Not Available [facility] 3 17:12:39 Depressive disorder 84626786 Active 2018 Not Available [facility] 3 17:12:39 Arthritis 2356050 Active 2018 Not Available [facility] 3 17:12:39 Sleep disorder 74151562 Active 2018 Not Available [facility] 3 17:12:39 Seasonal allergy 089323332 Active 2018 Not Available [facility] 3 17:12:40 Anxiety 89024348 Active 2018 Not Available [facility] 3 17:12:40 Gout 81990284 Active 2018 Not Available [facility] 3 17:12:41 Fissure in skin 04689838 Active 2018 Not Available [facility] 3 17:12:41 Diabetic foot ulcer 996533549 Active 2019 Not Available [facility] 3 17:12:39 Diabetic foot ulcer 696024252 Active 2019 Not Available [facility] 3 17:12:39 Noncompliance with treatment 9225800 Active 2019 Not Available [facility] 3 17:12:40 Environmental allergy 129338939 Active 2023 RAJNI Silva S [facility] 4 09:31:24 Anemia 227467899 Active 2023 Zoe Campbell null, [facility] 4 09:31:39 Dialysis care Active 2023 Zoe Campbell null, [facility] 4 09:32:07 Ear problem 893839160 Active 2023 Zoe Campbell null, [facility] 4 09:32:17 Disorder of eye 262491984 Active 2023 Zoe Campbell null, [facility] 4 09:32:26 Headache 90400989 Active 2023 Zoe Campbell null, [facility] 4 09:32:53 Disease of liver 315601802 Active 2023 Zoe Campbell null, [facility] 4 09:33:01 Kidney disease 60964903 Active 2023 Zoe Campbell null, [facility] 4 09:33:25 Migraine 98662632 Active 2023 Zoe Campbell null, [facility] 4 09:33:33 Peripheral vascular disease 872885746 Active 2023 Michael Mccrary DPM [address], [place], [address] , [facility] 4 09:45:59 Cigarette smoker 83704573 Active 2023 Michael Mccrary DPM [address], [address], [place], [address] , [facility] 4 09:46:05 Onychomycosis of toenails 300728305 Active 2023 Michael Mccrary DPM [address], [address], [place], [address] , [facility] 4 09:47:01 Dystrophia unguium 96166596 Active 2023 Michael Mccrary DPM [address], [address], [place], [address] , Company 4 09:47:10 Diabetic peripheral neuropathy 190421491 Active 2023 Michael Mccrary DPM [address], [address], [place], [address] , Company 4 09:47:27 Notes:back/neck problems, di alysis, ear [...] Mccrary DPM [address], [address], [place], [address], Company 09/23/2024 15:26:25 01/28/20 24 Toenail avulsion completed Michael Mccrary DPM [address], [address], [place], [address], Company 01/28/2024 16:22:30 10/17/19 24 Nail Debridement completed Michael Mccrary DPM [address], [address], [place], [address], Company 10/17/2023 09:56:54 Appendectomy completed Zoe Campbell [email or web address] 10/17/2023 09:35:32 Hysterectomy completed Zoe Campbell [employer] [facility] [employer] 10/17/2023 09:35:39 transplant of kidney completed Zoe Campbell [employer] [facility] [employer] 10/17/2023 09:35:51 total nephrectomy completed Zoe Dodd [employer] [facility] [employer] 10/17/2023 09:36:56 Imaging Results None recorded. Procedure Notes None recorded. Medical Equipment None Reported. Allergies Allergen ID Allergen Name Allergen Category Reaction Reaction Severity Criticality Documentation Date Start Date Code Code System Note Provider Name and Address Organization Details Recorded Time 41279 tetracycl ine medicatio n vomiting Not available Not available 09/26/2022 74301 RxNorm Not Available [facility] 3 17:13:27 22060 morphine medicatio n Not available Not available Not available 09/26/2022 7052 RxNorm sever e itchi ng Not Available [facility] 3 17:13:27 07313 metformin medicatio n diarrhea Not available Not available 09/26/2022 6809 RxNorm Not Available [facility] 3 17:13:28 53388 cyclobenz aprine hydrochlo ride medicatio n hives Not available Not available 09/26/2022 73852 RxNorm Not Available [facility] 3 17:13:28 07914 codeine medicatio n Not available Not available Not available 09/26/2022 2670 RxNorm sever e itchi ng Not Available [facility] 3 17:13:28 Medications Name Sig Start [...] Not Available No t Available Fluzone Quad 3454-3507 60 mcg (15 mcg x 4)/0.5 mL IM suspensio n active Not Available Not Available Not Available Envarsus XR 1 mg tablet,ex tended release TAKE 3 TABLETS BY MOUTH PEARL STRINGER BEFORE BREAKFAS T DO NOT TAKE ON [...] Available No t Available [employer] Lynda [address] [place] active Not Available Not Available Not Available [...] % 97 % 78 /min 26.5 kg/m2 93649.8 9 g 117/63 mm[Hg] Debbie Pineda [facility] [employer] 15:06:38 Date Recorded Body height Provider Name an d Address Organization Details Last Updated DateTime 11/14/2023 157.48 cm Johanna Cruz [facility] [employer] [facility] 11/14/2023 17:25:13 Date Recorded Body height Heart rate Systolic And Diastolic Provider Name and Address Organization Details Last Updated DateTime 01/28/2024 157.48 cm 100 /min 167/100 mm[Hg] Zoe Campbell [facility] [employer] 01/28/2024 16:02:53 Date Recorded Body height Heart rate Systolic And Diastolic Provider Name and Address Organization Details Last Updated DateTime 02/04/2024 157.48 cm 91 /min 138/86 mm[Hg] Zoe Campbell [facility] [employer] 02/04/2024 09:38:23 Date Recorded Body height Body mass index (BMI) Body weight Heart rate Respiratory rate Oxygen saturation Oxygen saturation in Arterial blood by Pulse oximetry Systolic And Diastolic Provider Name and Address Organization Details Last Updated DateTime 4 157.48 cm 26.5 kg/m2 88402.8 9 g 75 /min 14 /min 99 % 99 % 104/66 mm[Hg] Johanna Cruz [facility] [employer] [facility] 4 14:49:45 Social History Question Answer Notes LastModified by [employer] Details LastModified Time Tobacco Smoking Status Former Smoker Zoe Stanleylyubov morales, [facility] [employer] [facility] 10/17/2023 09:35:12 When Did You Quit Smoking? 6-10yearssin celastcigare tte Information not available 10/17/2023 How Many Years Have You Smoked Tobacco? 12 Information not available 10/17/2023 Sex: Unknown Functional Status Question Answer Note LastModified by [employer] Details LastModified Time What is your level of alcohol consumption? None Information not available 10/17/2023 What is your occupation? [id number] Information not available 09/26/2022 Mental Status [...] Y ANXIETY DISORDER Y ANEMIA/BLOOD DISORDER Y HEPATITIS / LIVER DISEASE Y FIBROMYALGIA Y USE OF NSAIDS Y URINARY/BLADDER/KIDNEY PROBLEMS Y GOUT Y DEPRESSION (INCLUDING POST ) Y BACK / NECK PROBLEMS Y Gynecological HistoryNo gynecological history recorded. Obstetrics History GPAL:G 0 P 0 0 0 0 Immunizations Vaccine Type Date Status Note Provider Nam e and Address Organization Details Recorded Time Pneumococcal conjugate PCV 13 5 completed Not Available [facility] 09/26/2022 17:13:26 Influenza, high-dose, trivalent, PF 5 completed Not Available [facility] 09/26/2022 17:13:26 Past Encounters Encounter ID Performer Location Encounter Start Date Encounter Closed Date Diagnosis/Indication Diagnosis SNOMED-CT Code Diagnosis ICD10 Code Diagnosis IMO Codes Diagnosis Note [id number] Michael Mccrary DPM [facility] [address] [place] [address] 10/17/2023 09:25:21 10/17/2023 10:14:37 Peripheral vascular disease 934183637 I73.9 obtain noninvasiv e vascular studies for possible procedure Cigarette smoker 8266572 7 F17.210 Recommend discontinu e smoking, patient states she is tryingrevi ewed side effects of smoking Onychomyco sis of toenails 358253024 B35.1 both great toenails Dystrophia unguium 88556 009 L60.3 nails debrided without incident 1 through 10 Diabetic p eripheral neuropathy 583931736 E11.40 Patient educated on neuropathy , diabetes, diabetic diet, and daily foot exams. Patient is to check feet daily for new wounds, blisters, redness to prevent infection and ulceration s to the feet. Patient will return to clinic in 3 months for diabetic foot workup. [id number] Michael Mccrary DPM [facility] [place] [address] [address] 11/14/2023 17:21:47 11/18/2023 10:15:04 Diabetes mellitus 70263239 E11.9 continue diabetic control per PCP recommenda tions Cigarette smoker 7856131 7 F17.210 Recommend discontinu e smoking, patient states she is tryingrevi ewed side effects of smoking Peripheral vascular disease 473763591 I73.9 vascular testing reviewed with the patientrec annalise daily exercisere peat studies in 1 yearrecomm end discontinu e smoking Onychomyco sis of toenails 742267488 B35.1 both great toenails- planned for total nail avulsionsc hedule procedure [id number] Michael Mccrary DPM [facility] [place] [address] [place] [address] 01/28/2024 15:58:49 01/31/2024 09:55:54 Onychomycosis of toenails 095054622 B35.1 right great toenailtot al nail avulsion performed todayWound care instructio ns givenMonit or for signs of infection at present seek medical attention immediatel yDressing instructio ns reviewed with the patientFol low-up 1 week [id number] Michael Mccrary DPM [facility] [address] [address] 02/04/2024 09:25:49 02/04/2024 11:41:31 Onychomycosis of toenails 568339067 B35.1 right great toenailtot al nail avulsion healingcon tinue daily wound care until healedWoun d care instructio ns givenMonit or for signs of infection at present seek medical attention immediatel yDressing instructio sabas reviewed with the patientFol low-up 3 months [id number] Michael Mccrary DPM [facility] [address] [address] 05/05/2024 14:32:35 05/06/2024 12:50:19 Onychomycosis of toenails 185331121 B35.1 right great toenailtot al nail avulsion healedcont inue ketoconazo le dailynail debrided Follow-up 2-3months [id number] Michael Mccrary DPM [facility] [address] [place] [address] 09/23/2024 14:45:22 09/23/2024 15:53:44 Onychomycosis of toenails 625525904 B35.1 right great toenail- Resolvedto enail fungus [...] Duncan Member ID Guarantor Name 05/05/2024 1 [facility] (MEDICARE REPLACEMENT/A DVANTAGE - HMO) [id number] Juaquin Rey [id number] Juaquin Rey 09/20/2024 1 [facility] (MEDICARE REPLACEMENT/A DVANTAGE - PPO) [id number] Juaquin Esquivelss [id number] Juaquin Rey 05/05/2024 1 [place] Juaquin Esquivelss [id number] Juaquin Krissy 05/05/2024 1 [place]PPO[place] [id number] Juaquin Rey [id number] Juaquin Rey Notes Date Note Type Note [...] pedal complaints. Michael Mccrary DPM [address] [address], [place], [address], [employer] 11/18/2023 09:19:43 01/28/2024 text/html . Patient is a 48-year-old female who returns the office for follow-up on onychomycosis of the right great toenail. Patient states overall she continues have white discoloration under the right great toe. Patient states that the nail is thickened and painful. Patient denies any treatment for this condition. Patient denies any other complaints. Michael Mccrary DPM [address] [address], [place], [address], [employer] 01/29/2024 14:01:52 02/04/2024 text/html . Patient is [...] complaints. Michael Mccrary DPM [address], [place], [address], [email or web address] [facility] 02/04/2024 10:06:26 05/05/2024 text/html . Patient [...] complaints. Michael Mccrary DPM [address], [place], [address], [employer] [facility] [employer] 05/05/2024 15:17:20 09/23/2024 text/html . Patient is [...] complaints. Michael Mccrary DPM [address], [place], [address], [employer] [employer] [facility] 09/23/2024 15:27:25 OBGyn Episode No OBEpisode recorded.
--- OUTSIDE RECORDS SUMMARY | 2025-06-05 14:18 | XMS_ITS | Clinical Summary ---
Author Organization [facility] Address [address] [place] [address] Care Team Providers Care Curator Of Education Name Role Phone Ramon Chaney MD Primary Care Provider Burak Blue MD Unavailable [phone] Juana Jimenez RN Unavailable Sylwia García MD Unavailable [phone] Igor Yeager DO Unavailable Cristina Boyer RN [...] 024 Active blood-glucose meter,continuous (FreeStyle Lynda 3 [place]) [facility] [place] Use as directed [...] 3 tablets (3 mg total) by mouth pyrotechnic mixer before breakfast DO NOT TAKE ON 11/28, [...] different from the original. Lab: [facility] P- [phone] Standing Orders q-monthly FK, q3-HgbA1C. Exp. 12/14/25 Home Health: [facility] Home Care Local Pharmacy:[facility] [place] [address] Specialty Pharmacy: Chris Problem Noted Date Diagnosed [...] months and has had multiple visit at [facility] in [place] with multiple abnormal urinalyses [...] home) Assessment & Plan (06/25/2023 3:24 PM COMMODITY MANAGER): Continue Ambien Assessment & Plan (02/24/2023 2:03 AM CDT): Cont home ambien PRN, reduce 10mg -> 5mg Liver lesion, right lobe 10/06/2022 superintendent terminal current use of insulin 06/07/2022 Prolonged Q-T [...] hypoglycemia Assessment & Plan (08/08/2021 3:28 PM COMMODITY MANAGER): -Affects post meal glucose readings -Closely [...] 3:25 PM CDT): S/p right nephrectomy of [place] right kidney. POD1 N/V and Abd pain. [...] glucoses. Assessment & Plan (06/07/2022 5:24 PM COMMODITY MANAGER): This affects her ability to see [...] Stable. Assessment & Plan (06/03/2023 5:34 AM COMMODITY MANAGER): Previous history of smoking. - Continue home inhalers and singulair. Essential hypertension 11/15/2019 Assessment & Plan (11/17/2024 3:59 PM CDT): BP at target Assessment & Plan (06/03/2023 5:41 AM COMMODITY MANAGER): Hold amlodipine for soft blood pressures. [...] 11/15/2019 Assessment & Plan (06/03/2023 5:43 AM COMMODITY MANAGER): Continue home statin. Assessment & Plan (02/24/2023 2:01 AM CDT): Cont home atorva 20mg. Assessment & Plan (11/05/2022 9:21 AM CDT): On atorvastatin 20mg. Optimize glycemic control. 10/2022- TG 173, HDL 66, LDL 66 Assessment & Plan (06/07/2022 5:29 PM COMMODITY MANAGER): Continue statin therapy (atorvastatin 20mg) and [...] stable. 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 Assessment & Plan (06/07/2022 5:38 PM COMMODITY MANAGER): Hemoglobin A1c increased to 8.5% on [...] insulin. Assessment & Plan (08/08/2021 3:28 PM COMMODITY MANAGER): -Currently taking MDI and using Lynda [...] control. Assessment & Plan (06/07/2022 5:25 PM COMMODITY MANAGER): Managed by Dr. Bhatt. Needs optimal glycemic control. Assessment & Plan (03/23/2022 9:06 AM CDT): Managed by Dr. Bhatt. Needs optimal glycemic control Assessment & Plan (07/11/2020 5:49 PM COMMODITY MANAGER): Resolved following course of antiviral therapy. 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 Assessment & Plan (06/07/2022 5:25 PM COMMODITY MANAGER): Taking daily immunosuppressants which complicate glycemic management. Assessment & Plan (08/06/2021 3:09 PM COMMODITY MANAGER): -assisted use of immunosuppressants and steroids complicates diabetes [...] has. I encouraged her to see an health information assistant again just to make sure that she does or does not need ongoing follow-up Assessment & Plan (08/06/2021 3:07 PM COMMODITY MANAGER): -Patient is legally blind -CGM allows for increase in safety as there is audile alarm for high and low blood sugars Resolved Problems Problem Noted Date Diagnosed Date Resolved Date Localized edema 01/22/2024 05/19/2025 Assessment & Plan (01/22/2024 4:11 PM CDT): Continue furosemide Ketosis 06/03/2023 06/25/2023 Assessment & Plan (06/03/2023 5:41 AM COMMODITY MANAGER): Patient presenting with nausea and vomiting [...] 06/25/2023 Assessment & Plan (06/03/2023 5:45 AM COMMODITY MANAGER): Presenting with 1 week history of [...] hypoglycemia. Assessment & Plan (06/07/2022 5:23 PM COMMODITY MANAGER): Now improved, but still need to minimize risk of hypoglycemia. Assessment & Plan (03/23/2022 9:03 AM CDT): Now improved, but still need to minimize risk of hypoglycemia Non-intractable vomiting 03/28/2021 Overview (03/28/2021): Added automatically from request for surgery [id number] Colon cancer screening 03/28/202104/19 Overview (03/28/2021): Added automatically from request for surgery [id number] Gastroparesis 02/23/2021 06/25/2023 Assessment & Plan (02/20/2023 [...] 02/23/2021 Assessment & Plan (08/08/2021 3:29 PM COMMODITY MANAGER): -BP today is 132/78 -Will continue [...] 08/03/2020 Assessment & Plan (08/03/2020 3:05 PM COMMODITY MANAGER): Plan is to give Augmentin 875/125 [...] Department Care Team Description 05/26/2025 Orders Only [facility] [address] [place] [address] [place] [address] Jose Rafael Ramos MD 05/19/2025 12:30 PM CDT Office Visit [facility] [address] [place] [address] Marlee Mckeon NP Anxiety and depression (Primary Dx); Gastroesophageal reflux disease, unspecified whether esophagitis present; Mild intermittent asthma without complication 05/17/2025 Telephone [facility] Endocrinology Metabolism and Lipid [address] [place] [address] [place] [address] Patricia Ravi, global security architect Mounjaro dosage 04/08/2025 Lab [facility] Transplant Kidney [address] [phone] [place] [address] America Rosa MD 04/06/2025 Telephone [facility] Transplant Kidney [address] [phone] [place] [address] Juana Jimenez RN 04/05/2025 2:00 PM CDT Lab [facility] Advanced Medicine ([facility]) [address] [place] [address] Encounter for aftercare following kidney transplant 04/05/2025 10:45 AM CDT Office Visit [facility] [address] [place] [address] [place] [address] Lainey Mooney NP Encounter for aftercare following kidney transplant (Primary Dx); Kidney replaced by transplant; Encounter for long-term (current) use of high-risk medication; Hypertension, unspecified type; assisted current use of immunosuppressive drug; High risk medication use 03/31/2025 Results Follow-Up [facility] [address] [place] [address] Ramon Chaney MD US Arterial Doppler Lower Extremity Bilateral 03/26/2025 3:30 PM CDT Office Visit [facility] Endocrinology Metabolism and Lipid [address] [place] [address] [place] [address] Erica Tyler MD Type 1 diabetes mellitus with other specified complication (Primary Dx); superintendent terminal current use of insulin (HCC); Mixed hyperlipidemia; Essential hypertension; Insulin resistance; Diabetes mellitus with features of insulin resistance (HCC) 03/25/2025 1:45 PM CDT Ancillary Procedure [facility] Vascular Lab at the [facility] [address] [place] [address] [place] [address] Claudication 03/23/2025 3:15 PM CDT Office Visit [facility] [address] [place] [address] Ramon Chaney MD Claudication (Primary Dx); Renal transplant recipient; Type 1 diabetes mellitus with other specified complication; Essential hypertension 03/18/2025 3:00 PM CDT Clinical Support [facility] Endocrinology Metabolism and Lipid [address] [place] [address] [place] [address] Type 1 diabetes mellitus with other specified complication (Primary Dx) 03/16/[address] [facility] Medicine Nephrology [address] [place] [address] [place] [address] Jose Rafael Ramos MD 03/10/2025 Telephone [facility] Transplant Kidney [address] [phone] [place] [address] Francheska Esteves 03/09/2025 Telephone [facility] Transplant Kidney [address] [phone] [place] [address] Mirtha Taylor 03/08/2025 Telephone [facility] Transplant Kidney [address] [facility] [address] [facility] [address] [phone] [place] [address] Mirtha Taylor from Last 3 Months Immunizations Immunization Administration Dates Next Due COVID-19 mRNA (Totsy) 0.3 m L (30 mcg) vaccine (12 [...] drink = 0.6 oz pur e alcohol) [facility] Utilities Answer Date Recorded In the past 12 months has th e [employer], gas, oil, or water [employer] threatened to shut off services in your [...] answer 11/28/2023 How often do you attend [facility] or synagogue services? Patient unable to answer 11/28/2023 Do you belong to any clubs o r organizations such as scientologist groups, unions, fraternal or athletic groups, or [...] on file Legal Sex Female 8:49 AM COMMODITY MANAGER Gender Identity Not on file Sexual Orientation Not on file Occupation Industry Job Start Date Job End Date [employer] Not on file Not on file Not [...] Additional history exists TSH Level 10/25/2021 10/25/2020, 0810/2019, 07/06/2019 Zoster Vaccine (2 of 2) 10/16/2024 08/21/2024 Dilated Eye Exam 10/27/2024 10/28/2023 Covid-19 Vaccine (2 6 season) 2025 04/05/2024, 04/17/2021, 11/20/2020, Additional history [...] history exists Medical Devices Explanted Type Area Karate Teacher Device Identifier Shelf Expiration Date Model / Serial / Lot Circon-Surgit ek [id number] 6fr 20cm 100cm 1 Step Insert Push Catheter [place] Suture - [id number] Implanted:Qty : 1 on 03/09/2019 by Tommie Cortes MD at [facility] Explanted:Qty : 1 on 04/06/2019 by Ted Farrell NP Stent Right: Ureter Circon-Surgitek [id number] 02/14/2023 [id number] / / [id number] Description:Transplanted Ure ter Procedures Procedure Name Priority [...] CELL-FREE DNA (CFDNA) Routine 04/05/2025 POCT GLUCOSE [id number] Routine 03/26/2025 3: 43 PM CDT Type [...] CREATININE RATIO, URINE Routine 07/14/2024 8:26 AM COMMODITY MANAGER Type 1 diabetes mellitus with other specified complication (HCC) DIABETIC EYE EXAM Routine 10/28/2023 2:2 7 PM CDT COLONOSCOPY 05/08/2022 12:35 PM CDT TSH Routine 10/25/2020 2:58 PM CDT Anxiety HEPATITIS C RNA, QUANTITATIVE, PCR STAT 03/02/2020 4:44 PM CDT from Last 3 Months or Most Recently Relevant to Health Maintenance Results * Tacrolimus, Highly Sensitive, LC/MS/MS (05/26/2025 8:29 AM CDT) [facility] Tacrolimus, Highly Sensitive, LC/MS/MS 7.5 mcg/L [facility] Comment: No definitive therapeutic or [...] ORDERABL ES Final Result Performing Organization Address City/[facility]/ZIP Co de Phone Number [facility] [address] [place] [address] * COPY(IES) SENT TO: (05/26/2025 8:29 AM CDT) [facility] COPY(IES) SENT TO: [facility] Comment: [facility]NEY - COPY TO [facility] [address] [place] [address] 05/26/2025 8:29 AM CDT 05/26/2025 8:29 AM CDT Narrative [facility] - 05/27/2025 2:13 PM CDT PAE FASTING:YES FASTING: YES Jose Rafael Ramos MD LAB BLOOD ORDERABL ES Final Result [facility] * (ABNORMAL) Hepatic Function Panel, Serum (05/26/2025 8:29 AM CDT) [facility] Protein, sr 8.4(H) 6.1 - 8.1 g/dL [...] 2:13 PM CDT PAE FASTING:YES FASTING: YES [facility] Sesar Ramos MD LAB BLOOD ORDERABL ES Final Result [facility] [address] [place] [address] * (ABNORMAL) CBC with auto differential (05/26/2025 [...] ORDERABL ES Final Result [facility] [address] [place] [address] * (ABNORMAL) Hemoglobin A1c (05/26/2025 8:29 AM [...] BLOOD ORDERABL ES Final Result [facility] [address] [place] [address] * (ABNORMAL) Renal function panel (05/26/2025 8:29 [...] BLOOD ORDERABL ES Final Result [facility] [address] [address] * (ABNORMAL) Lipid panel (05/26/2025 8:29 AM CDT) [facility] Cholesterol 167 <200 mg/dL [facility] [...] LDL-C. Von SS et al. ELISA. 2013;310(19): 3984-1288 (http://education.[employer]/faq/RTS799) Chol/HDL ratio 3.0 <5.0 (calc) [facility] [...] ORDERABL ES Final Result Performing Organization Address City/[facility]/ZIP Co de Phone Number [facility] [address] [address] [address] * BK virus PCR quantitative Blood (04/05/2025 12:08 PM CDT) [facility] BKV DNA result, pl Not Detected [facility] Comment: The quantifiable range of this assay is 21.5 IU/mL to 100,000,000 IU/mL (1.33 log IU/mL to 8.00 log IU/mL). Testing was performed by the KARLY Clinicient0 BKV Quantatitive Test version 2.0 ([employer] Testing performed at [facility] Current Interpretive Data was last revised on 2021. Blood 04/05/2025 12:0 8 PM CDT 04/05/2025 1:12 PM CDT Lainey Mooney NP LAB MICROBIOLOGY - GENERAL O RDERABLES Final Result Performing Organization Address City/[facility] Co de Phone Number MAXIMO MCKEON [facility] [place] [address] [facility] * HLA Donor Specific Antibody Report (04/05/2025 12:08 PM CDT) Lainey Mooney NP LAB BLOOD ORDERABLES Final R esult * HLA Antibody Screen - DSA (Class I and Class II) (04/05/2025 12:08 PM CDT) Blood 04/05/2025 12:0 8 PM CDT 04/06/2025 11:21 AM CDT Narrative [facility] - 04/06/2025 11:21 AM CDT Lainey Mooney NP LAB BLOOD ORDERABLES Final R esult [facility] * Cytomegalovirus (CMV) DNA PCR, quantitative Blood (04/05/2025 12:08 PM CDT) Pathologist [facility] CMV DNA Not Detected [facility] Comment: Interpretive Data: The quantifiable range of this assay is 34 IUnits/mL to 10,000,000 IUnits/mL (1.53 log IUnits/mL to 7.0 log IUnits/mL). Testing was performed by the KARLY 6800 CMV Test ([employer] Testing performed at [facility]. Current interpretive data was last revised on 2021. Blood 04/05/2025 12:0 8 PM CDT 04/05/2025 1:12 PM CDT us Lainey Mooney NP LAB MICROBIOLOGY - GENERAL O RDERABLES Final Result MAXIMO [facility] [place] [address] [facility] * (ABNORMAL) eGFR (04/05/2025 12:08 PM CDT) Pathologist [facility] eGFR 45(L) >=60 mL/min/1. 73 m2 Comment: [...] CDT 04/05/2025 1:20 PM CDT Lainey Mooney SECURITY ALARM TECHNICIAN LAB BLOOD ORDERABLES Final R [facility]ult [facility] [place] [address] * (ABNORMAL) Basic metabolic panel (04/05/2025 12:08 PM CDT) Pathologist [facility] Sodium 137 135 - 145 mmol/L Potassium, pl 3.7 3.3 - 4.9 mmol/L [facility] Chloride 95(L) 97 - 110 mmol/L [facility] CO2 33(H) 22 - 32 mmol/L [facility] Anion gap 9 2 - 15 mmol/L [facility] BUN 23 6 - 25 mg/dL [facility] Creatinine 1.42(H) 0.60 - 1.10 mg/dL [facility] Glucose 153 70 - 199 mg/dL [facility] Comment: Interpretive Data Fasting glucose >/= [...] 2022. Calcium 10.2 8.5 - 10.3 mg/dL [facility] Blood 04/05/2025 12:0 8 PM CDT 04/05/2025 1:20 PM CDT Lainey Mooney NP LAB BLOOD ORDERABLES Final R esult MAXIMO [facility] [place] [address] * Collection Task for HLA Antibody Screen (04/05/2025 11:28 AM CDT) [facility] HLA Antibody Screen By Single Antigen Received Blood 04/05/2025 11:2 8 AM CDT 04/06/2025 9:55 AM CDT Lainey Mooney NP LAB BLOOD ORDERABLES Final R esult [place] [place] [facility] [place] [address] * POCT urinalysis dipstick (04/05/2025 11:11 AM CDT) [facility] Glucose, ur, POC Negative Negative TXP NO LAB FOUND Bilirubin, ur, POC Negative Negative TXP NO LAB FOUND Ketones, ur, POC Negative Negative TXP NO LAB FOUND Specific [place], POC 1.015 1.003 - 1.030 TXP NO [...] Negative TXP NO LAB FOUND Lot Number [id number] TXP NO LA B FOUND Urine 04/05/2025 11:1 1 AM CDT Lainey Mooney NP POINT OF CARE TEST ORDERABLE S Final Result TXP NO LAB FOUND * [facility] kidney donor-derived cell-free DNA (cFDNA) (04/05/2025) [facility] SCRIBED [facility] cfDNA 0.10 % TXP [...] PM CDT Narrative 03/26/2025 6:31 AM CDT [facility] - Department of Vascular Surgery, Vascular Laboratory [address] [place] [address] Lower Extremity Arterial Doppler Report Patient Name: KENDY LOMELI : 1975 Study Date: 03/25/2025 2:07:00 PM Gender: F Tech: Dilcia Rojas RDNY,T Location: [facility] Ref Provider: RAMON CHANEY Quality: Adequate Order Provider: RAMON CHANEY PROCEDURES: Arterial Report: Bilateral lower extremity arterial Doppler exam at rest. INDICATIONS: claudication Dx: Claudication [I73.9 (ICD-10-CM)] I73.9 Peripheral vascular disease, unspecified. MEASUREMENTS: Right Value Units Left Value Units Rt Brachial Pressure 143 mmHg Lt SENIOR RECRUITER Pressure 144 mmHg Rt SENIOR RECRUITER Pressure 138 mmHg Lt DPA Pressure 146 mmHg Rt DPA Pressure 139 mmHg Lt 1st Digit Pressure 91 mmHg Rt 1st Digit Pressure 106 mmHg Lt PT BIANCA Resting 1.01 Rt PT BIANCA Resting 0.97 Lt AT BIANCA Resting 1.02 Rt AT BIANCA Resting 0.97 Lt Digit/Arm Index 0.64 Rt Digit/Arm Index 0.74 Right Value Units Left Value Units FINDINGS: Performing Head Of Marketing Analytics: Dilcia Mock RDMS, RVT. Bilateral All Levels [...] above. Electronically Signed By: Drew Peres MD [facility] [phone] 03/26/2025 5:34:57 AM CDT Procedure Note Drew Peres MD - 03/26/2025 [facility] - Department of Vascular Surgery,Vascular Laboratory [address] [place] [address] Lower Extremity Arterial Doppler Report Patient Name: KENDY LOMELI : 1975 Study Date: 03/25/2025 2:07:00 PM Gender: F Tech: Dilcia Rojas RDMS,[place] Location: [facility] Ref Provider: RAMON CHANEY Quality: Adequate Order Provider: RAMON CHANEY PROCEDURES: Arterial Report: Bilateral lower extremity arterial Doppler exam at rest. INDICATIONS: claudication Dx: Claudication [I73.9 (ICD-10-CM)] I73.9 Peripheral vascular disease, unspecified. MEASUREMENTS: Right Value Units Left Value Units Rt Brachial Pressure 143 mmHg Lt SENIOR RECRUITER Pressure 144 mmHg Rt SENIOR RECRUITER Pressure 138 mmHg Lt DPA Pressure 146 mmHg Rt DPA Pressure 139 mmHg Lt 1st Digit Pressure 91 mmHg Rt 1st Digit Pressure 106 mmHg Lt PT BIANCA Resting 1.01 Rt PT BIANCA Resting 0.97 Lt AT BIANCA Resting 1.02 Rt AT BIANCA Resting 0.97 Lt Digit/Arm Index 0.64 Rt Digit/Arm Index 0.74 Right Value Units Left Value Units FINDINGS: Performing Head Of Marketing Analytics: Dilcia Mock RDMS, RVT. Bilateral All Levels [...] above. Electronically Signed By: Drew Peres MD [facility] [phone] 03/26/2025 5:34:57 AM CDT Ramon Chaney MD [facility] [place] PROCEDURES Final Resul t * (ABNORMAL) POCT hemoglobin A1c (03/18/2025 3:22 PM CDT) Pathologist [facility] Hemoglobin A1C, POC 8.3(A) 4.0 - 5.6 % Blood 03/18/2025 3:[address] POINT OF CARE TEST ORDER JANEE Final Result * Tacrolimus, Highly Sensitive, LC/MS/MS (03/16/2025 8:07 AM CDT) Tacrolimus, Highly Sensitive, LC/MS/MS 6.1 mcg/L [facility] Comment: No definitive therapeutic or toxic [...] ORDERABL ES Final Result Performing Organization Address City/[facility]/ZIP Co de Phone Number [facility] [address] [place] [address] * COPY(IES) SENT TO: (03/16/2025 8:07 AM CDT) COPY(IES) SENT TO: [facility] Comment: [facility] - COPY TO [facility] [address] [place] [address] 03/16/2025 8:07 AM CDT 03/16/2025 8:07 AM CDT Narrative [facility] - 03/17/2025 4:30 PM CDT PAE Jose Rafael Ramos MD LAB BLOOD ORDERABL ES Final Result Performing Organization Address City/[facility]/ZIP Co de Phone Number [facility] * (ABNORMAL) [...] BLOOD ORDERABL ES Final Result [facility] [address] [place] [address] * (ABNORMAL) Renal function panel (03/16/2025 8:07 [...] ORDERABL ES Final Result Performing Organization Address [facility] Co de Phone Number [facility] [address] [place] [address] * Albumin Creatinine Ratio, Urine (07/14/2024 8:26 AM COMMODITY MANAGER) Creatinine, ur 95 20 - 275 [...] a diagnostic category. Urine 07/14/2024 8:26 AM COMMODITY MANAGER 07/14/2024 8:26 AM COMMODITY MANAGER Drew Godoy MD LAB URINE ORDERABLES Final Res ult [facility] [address] [address] [address] * Diabetic Eye Exam (10/28/2023 2:27 PM [...] Female Attending MD: Cricket Santamaria M.D. Room: [facility] ENDOSCOPY ROOM 8 Note Status: [...] The scope was passed under direct vision.The [id number] endoscope was introduced through the anus and advanced to the cecum, identified by appendiceal orifice and ileocecal valve. The colonoscopy was performed without difficulty. The patient tolerated the procedure well. The qualityof the bowel preparation was evaluated using the BBPS ([place] Bowel Preparation Scale) with scores of:Right Colon [...] following this procedure please call my office [phone]). After hours and eveningsplease call [phone] and speak to the GI fellow augustin. [...] 10/26/2020 8:15 AM CDT Performed at: - [address] [id number] Vp Software: Jean-Claude Snider PhD, Phone: [phone] us Ramon Chaney MD LAB BLOOD ORDERABLES Final Re sult Performing Organization Address City/[facility] Co de Phone Number [facility] * Hepatitis C (HCV) RNA PCR, quantitative (03/02/2020 4:44 PM CDT) [facility] HCV RNA result Not Detected [facility] Comment: Interpretive data: The quantifiable range of this assay is 15 IU/mL to 100,000,000 IU/mL (1.18 log IU/mL to 8.00 log IU/mL). Testing was performed by the KARLY AmpliPrep/KARLY TaqMan HCV Test version 2.0 ([employer] Testing performed at [facility] Current Interpretive Data was last revised on 2015. Blood specimen (specimen) 03/02/2020 4:44 PM CDT 03/02/2020 5:00 PM CDT us Malcolm Mann MD LAB MICROBIOLOGY - GENERA L ORDERABLES Final Result Performing Organization Address City/[facility] Co de Phone Number [facility] [place] [address] from Last 3 Months or Most Recently Relevant to Health Maintenance Insurance [facility] MEDICARE ADVANTAGE [facility] MEDICARE IDPA Advance Directives For more information, please contact: [phone] * Full Code (Latest Code Status on [...] 11:12 AM 05/08/2022 5:48 PM Care Teams Curator Of Education Relationship Specialty Start Date End Date Ramon Chaney MD PCP - General 08/31/16 Burak Blue MD Consulting Physician Nephrology 04/21/18 Juana Jimenez RN Mailing Manager 03/09/19 Sylwia García MD Referring Physician Endocrinology Diabetes & Metabolism 03/21/20 Igor Yeager DO Consulting Physician Urology 04/27/20 Cristina Boyer, RN [address] [address] Secondary Kidney Coordinator Transplant 08/25/20 Cyn Fang NP [address] [place] [address] Nurse Practitioner Nurse Practitioner 12/06/21 [place] [address] [place] [address] ENDOCRINOLOGY, [facility] [address] [place] [address] Nurse Practitioner Family Medicine 01/06/25
--- OUTSIDE RECORDS SUMMARY | 2025-06-05 14:18 | XMS_ITS | Encounter Summary ---
Author Organization [facility] Health Address [address] [place] [address] Care Team Providers Care Indirect Sales Representative Name Role Phone Ramon Sylvester MD Primary Care Provider [phone] Ramon Sylvester MD Unavailable [phone] Encounter Details Date Type Department Care Team (Late st Contact Info) Description 12/11/2017 [facility] Outpatient Visit [facility] [address] [place] [address] [place] [id number] [id number] Social History Tobacco Use [...] on filedocumented in this encounter Care Teams Indirect Sales Representative Relationship Specialty Start Date End Date Ramon Sylvester MD PCP - General Internal Medicine 10/19/16 Ramon Sylvester MD Internal Medicine 10/19/16 documented as of this encounter
--- NOTE | 2025-06-05 14:30 | ED.NAVMDI ---
HPI - Nausea/Vomiting/Diarrhea General Chief complaint: Nausea/Vomiting/Diarrhea Stated complaint: gen. weak w/ n/v/d Time Seen by Provider: 06/05/25 14:08 Source: patient Mode of arrival: EMS Limitations: no limitations History of Present Illness HPI Narrative: This is a 50-year-old female that presents to the emergency department for nausea and vomiting. Ongoing since earlier this morning. Reports associated abdominal pain. Reports some diarrhea. Denies fevers, dysuria. Related Data Home Medications ?Medication ?Instructions ?Recorded ?Confirmed ?Last Taken ?Type aspirin 81 mg tablet,delayed 81 mg PO DAILY 08/30/20 05/27/25 05/26/25 History release (Adult Aspirin Regimen) azathioprine 50 mg tablet 50 mg PO DAILY 08/30/20 05/27/25 05/26/25 History omeprazole 20 mg capsule,delayed 20 mg PO DAILY 08/30/20 05/27/25 05/26/25 History release zolpidem 10 mg tablet (Ambien) 10 mg PO HS 08/30/20 05/27/25 05/26/25 History atorvastatin 20 mg tablet 20 mg PO DAILY 12/22/23 05/27/25 05/26/25 History cholecalciferol (vitamin D3) 50 50 mcg PO DAILY 12/22/23 05/27/25 05/26/25 History mcg (2,000 unit) tablet (Vitamin D3) cyanocobalamin (vitamin B-12) 500 1,000 mcg PO DAILY 12/22/23 05/27/25 05/26/25 History mcg tablet epinephrine 0.3 mg/0.3 mL 0.3 mg IM Q5-15M PRN Anaphylaxis 12/22/23 05/27/25 Unknown History injection, auto-injector flash glucose sensor (FreeStyle 12/22/23 05/27/25 Unknown History Lynda 14 Day Sensor kit) fluticasone furoate 100 1 inh inhalation DAILY 12/22/23 05/27/25 05/26/25 History mcg-vilanterol 25 mcg/dose inhalation powder (Breo Ellipta) gabapentin 100 mg capsule 100 mg PO TID 12/22/23 05/27/25 05/26/25 History insulin glargine U-300 conc 300 24 unit subcut DAILY 12/22/23 05/27/25 05/26/25 History unit/mL (1.5 mL) subcutaneous pen (Tou[place]en[place] SoloStar U-300 Insulin) montelukast 10 mg tablet 10 mg PO DAILY 12/22/23 05/27/25 05/26/25 History pen needle, diabetic 31 gauge x 12/22/23 05/27/25 Unknown History 10/11 (BD Ultra-Fine Mini Pen Needle) sertraline 50 mg tablet 50 mg PO DAILY 12/22/23 05/27/25 05/26/25 History tramadol 50 mg tablet 100 mg PO Q6H PRN Pain 12/22/23 05/27/25 05/26/25 History alprazolam 0.5 mg tablet 0.5 mg PO TID PRN Anxiety 01/10/24 05/27/25 05/26/25 History carvedilol 6.25 mg tablet (Coreg) 6.25 mg PO DAILY 01/10/24 05/27/25 05/26/25 History divalproex 500 mg tablet,delayed 500 mg PO TID 01/10/24 05/27/25 05/26/25 History release prednisone 5 mg tablet 5 mg PO DAILY 01/10/24 05/27/25 05/26/25 History tacrolimus 1 mg tablet,extended 3 mg PO DAILY 01/10/24 05/27/25 05/26/25 History release 24 hr (Envarsus XR) timolol maleate 0.5 % eye drops 2 drp EACH EYE BID 01/10/24 05/27/25 05/26/25 History fluticasone propionate 50 2 spray intranasal BID PRN RHINITIS 04/13/24 05/27/25 05/26/25 History mcg/actuation nasal spray,suspension glucagon 3 mg/actuation nasal 3 mg intranasal PRN PRN 04/13/24 05/27/25 08/01/24 12:00 History spray (Baqsimi) Hypoglycemia 3 mg insulin lispro 100 unit/mL See Rx Instructions .Route .COMPLEX 04/13/24 05/27/25 05/26/25 History subcutaneous half-unit pen furosemide 20 mg tablet (Lasix) 20 mg PO DAILY 08/08/24 05/27/25 05/26/25 History Allergies Allergy/AdvReac Type Severity Reaction Status Date / Time cyclobenzaprine Allergy Unknown Hives / Verified 05/27/25 21:42 Red Face metformin AdvReac Intermediate Vomiting Verified 05/27/25 21:42 tetracycline AdvReac Unknown Nausea and Verified 05/27/25 21:42 Vomiting acetaminophen (From Tylenol) AdvReac Nausea and Verified 05/27/25 21:42 Vomiting morphine AdvReac Itching Verified 05/27/25 21:42 Review of Systems Review of Systems: All systems reviewed & are unremarkable except as noted in HPI and below PMFSH Past Medical History Medical History (Updated 06/05/25 @ 19:12 by Amy Zhong PA-C) Bipolar disorder Peripheral neuropathy Anxiety UTI (urinary tract infection) Post-menopausal Pancreatic insufficiency Hypertension MRSA infection Chronic obstructive pulmonary disease Diabetic nephropathy Type 1 diabetes mellitus Diabetic gastroparesis Surgical History Surgical History History of right nephrectomy Secondary to suspicious mass which turned out to be noncancerous. History of benign breast biopsy History of hysterectomy History of appendectomy (02/2019) History of kidney transplant (02/2019) [place] Family History Family History Grandparent Diabetes mellitus Emphysema of lung Mother and grandparent Grandparent Hypertension Mother Lupus Social History Social History (Updated 05/27/25 @ 22:52 by Callie Dwyer APRN) Social History: She is and lives with her . She is disabled. She has no children. Surrogate medical decision maker: Aleja Mcghee, mother. Code status: Full code. Smoking packs per day: 1 Smoking cigarettes per day: 20.0 Years smoked: 10 Smoking pack-years: 10.00 Tobacco type: cigarettes Second hand tobacco smoke exposure: No Smoking end date: 10/27/18 Alcohol intake: never Substance use: never Substance use type: marijuana Do You Feel Safe in your Home?: Yes Lack of Transportation: No Lack of Food: Never True Current Housing: I Have Housing Concerned About Future Housing: No Difficulty Paying Gas/Electric Bills: No Difficulty Paying for Meds: No Currently Unemployed: No Education: High School Diploma/GED Difficulty w/ Childcare or Family Care: No Spiritual care concerns: No Exam Narrative: GENERAL: Uncomfortable, well-nourished, and in no acute distress. HEAD: Normocephalic, atraumatic. EYES: EOMI. ENT: Nares clear, no rhinorrhea or epistaxis. Mucous membranes moist. Oropharynx without tonsillar hypertrophy exudate or other lesions. CHEST: Clear to auscultation. No respiratory distress. No wheezes rales or rhonchi HEART: Regular rate and rhythm. No murmur heard. Normal peripheral pulses. ABDOMEN: Soft, nondistended, normal active bowel sounds. Tender to palpation throughout the abdomen, without guarding EXTREMITIES: Normal range of motion. No edema. SKIN: Warm, dry, no rash. NEURO: No focal deficits. Alert and oriented x3. PSYCH: Normal mood and affect Course Course Emergency Course: Patient with continued pain, nausea, will consult hospitalist for admission Vital Signs Vital signs: Vital Signs Temperature 98.0 F 06/05/25 12:40 Pulse Rate 109 H 06/05/25 12:40 Respiratory Rate 20 06/05/25 12:40 Blood Pressure 195/111 H 06/05/25 12:40 Pulse Oximetry 100 06/05/25 12:40 Temperature 98.0 F 06/05/25 12:40 Pulse Rate 102 H 06/05/25 18:20 Respiratory Rate 14 06/05/25 18:20 Blood Pressure 122/79 06/05/25 19:16 Pulse Oximetry 96 06/05/25 18:20 MDM - Nausea/Vomiting/Diarrhea MDM Narrative Medical decision making narrative: Patient presents the emergency department for abdominal pain, nausea vomiting. She is afebrile and nontoxic appearing. Tachycardic and hypertensive upon arrival, this improved with management of patient's pain. Cbc without leukocytosis. Does show hemoconcentration. Metabolic panel also without evidence of dehydration. Bicarb is normal, no anion gap. Urine without evidence of infection. test negative. CT abdomen pelvis without acute findings. Initial lactic acid elevated at 3.8. Patient hydrated 2 L of IV fluids in the ER. Patient was accepted to the hospitalist service for admission, patient then decided to leave against medical advice Differential Diagnosis Differential diagnosis: Likely food poisoning, gastroenteritis, drug-induced nausea and vomiting, dehydration and other (Esophagitis, gastritis, biliary colic) Lab Data Attestation: I reviewed the patient's lab results. 06/05/25 13:18 06/05/25 13:39 Labs: Lab Results 06/05/25 06/05/25 06/05/25 Range/Units 13:18 13:39 15:16 WBC 8.5 (4.5-10.0) K/mm3 RBC 4.80 (4.2-5.4) M/mm3 Hgb 16.1 H D (12.0-15.0) g/dL Hct 47.4 H (37.0-47.0) % MCV 98.8 (80-100) fl MCH 33.5 (26-34) pg MCHC 34.0 (32-36) g/dl RDW 13.1 (11.5-14.5) % Plt Count 182 (150-375) k/mm3 MPV 11.0 H (7.4-10.4) fl Immature Gran % (Auto) 0.5 (0-0.5) % Neut % (Auto) 57.2 (45.5-73.1) % Lymph % (Auto) 28.2 (18.3-44.2) % [place] % (Auto) 9.3 H (2.6-8.5) % Eos % (Auto) 4.0 (0-4.4) % Baso % (Auto) 0.8 (0.2-1.2) % Lymph # (Auto) 2.39 (0.9-3.2) K/mm3 [place] # (Auto) 0.8 H (0.1-0.6) K/mm3 Eos # (Auto) 0.3 (0-0.3) K/mm3 Baso # (Auto) 0.1 (0.0-0.1) K/mm3 Abs Immat Gran (auto) 0.04 H (0.00-0.031) K/mm3 Absolute Neuts (auto) 4.9 (1.3-6.7) K/mm3 Absolute Nucleated RBC 0.000 (0.0-0.012) K/mm3 Nucleated RBC % 0.0 (0.0-0.2) % Sodium 137 (137-145) mmol/L Potassium 4.7 (3.4-5.0) mmol/L Chloride 97 L (98-107) mmol/L Carbon Dioxide 29 (22-30) mmol/L Anion Gap 11 (4-12) mmol/L BUN 22 H D (7-17) mg/dL Creatinine 1.05 H (0.7-1.0) mg/dL Estim Creat Clear Calc 44 ml/min Estimated GFR 55 L (59 - ) Glucose 286 H (65-110) mg/dL POC Capillary Glucose (65-105) mg/dl Lactic Acid 3.8 H (0.7-2.0) mmol/L Calcium 10.3 H (8.4-10.2) mg/dL Phosphorus 1.1 L (2.5-4.5) mg/dL Magnesium 1.7 (1.6-2.3) mg/dL Total Bilirubin 1.0 (0.2-1.3) mg/dL AST 30 (14-36) U/L ALT 22 (6-35) U/L Alkaline Phosphatase 57 (38-126) U/L Total Protein 9.2 H (6.3-8.2) g/dL Albumin 4.7 (3.5-5.1) g/dL Lipase 12 L (23-300) U/L Urine Color Yellow (Yellow) Urine Appearance Cloudy H (Clear) Urine pH >=9.0 H (5.0-9.0) Ur Specific [place] 1.015 (1.001-1.035) Urine Protein 1+ H (Negative) mg/dL Urine Glucose (UA) 1+ H (Negative) mg/dL Urine Ketones 1+ H (Negative) mg/dL Ur Blood (Man) Negative (Negative) Urine Nitrate Negative (Negative) Urine Bilirubin Negative (Negative) Urine Urobilinogen 0.2 (<2.0) mg/dL Leukocyte Esterase Rfl Negative (Negative) SACHA/UL Urine RBC 0-2 (0-2) /hpf Urine WBC 0-5 (0-3) /hpf Ur Squamous Epith Cells None seen (Few) /hpf Urine Bacteria None seen /hpf Urine Casts 0-2 POC Urine HCG, Qual (Negative) 06/05/25 06/05/25 Range/Units 15:19 16:18 WBC (4.5-10.0) K/mm3 RBC (4.2-5.4) M/mm3 Hgb (12.0-15.0) g/dL Hct (37.0-47.0) % MCV (80-100) fl MCH (26-34) pg MCHC (32-36) g/dl RDW (11.5-14.5) % Plt Count (150-375) k/mm3 MPV (7.4-10.4) fl Immature Gran % (Auto) (0-0.5) % Neut % (Auto) (45.5-73.1) % Lymph % (Auto) (18.3-44.2) % [place] % (Auto) (2.6-8.5) % Eos % (Auto) (0-4.4) % Baso % (Auto) (0.2-1.2) % Lymph # (Auto) (0.9-3.2) K/mm3 [place] # (Auto) (0.1-0.6) K/mm3 Eos # (Auto) (0-0.3) K/mm3 Baso # (Auto) (0.0-0.1) K/mm3 Abs Immat Gran (auto) (0.00-0.031) K/mm3 Absolute Neuts (auto) (1.3-6.7) K/mm3 Absolute Nucleated RBC (0.0-0.012) K/mm3 Nucleated RBC % (0.0-0.2) % Sodium (137-145) mmol/L Potassium (3.4-5.0) mmol/L Chloride (98-107) mmol/L Carbon Dioxide (22-30) mmol/L Anion Gap (4-12) mmol/L BUN (7-17) mg/dL Creatinine (0.7-1.0) mg/dL Estim Creat Clear Calc ml/min Estimated GFR (59 - ) Glucose (65-110) mg/dL POC Capillary Glucose 299 H (65-105) mg/dl Lactic Acid (0.7-2.0) mmol/L Calcium (8.4-10.2) mg/dL Phosphorus (2.5-4.5) mg/dL Magnesium (1.6-2.3) mg/dL Total Bilirubin (0.2-1.3) mg/dL AST (14-36) U/L ALT (6-35) U/L Alkaline Phosphatase (38-126) U/L Total Protein (6.3-8.2) g/dL Albumin (3.5-5.1) g/dL Lipase (23-300) U/L Urine Color (Yellow) Urine Appearance (Clear) Urine pH (5.0-9.0) Ur Specific [place] (1.001-1.035) Urine Protein (Negative) mg/dL Urine Glucose (UA) (Negative) mg/dL Urine Ketones (Negative) mg/dL Ur Blood (Man) (Negative) Urine Nitrate (Negative) Urine Bilirubin (Negative) Urine Urobilinogen (<2.0) mg/dL Leukocyte Esterase Rfl (Negative) SACHA/UL Urine RBC (0-2) /hpf Urine WBC (0-3) /hpf Ur Squamous Epith Cells (Few) /hpf Urine Bacteria /hpf Urine Casts POC Urine HCG, Qual Negative (Negative) Imaging Data Radiologist's impression: ITS Impressions Abdomen/Pelvis CT 06/05/25 15:37 IMPRESSION: 1. No acute intra-abdominal process. Incidental findings above Critical Care Time Critical Care Time Critical Care Time: No Discharge Plan Discharge Clinical Impression: Intractable abdominal pain Patient Disposition: Left Against Medical Advice Condition: Guarded Prognosis Instructions: Acute Nausea and Vomiting (ED), Abdominal Pain (ED) Additional Instructions: Return to the ER if you experience fever, abdominal pain with nausea and vomiting, you are unable to keep down liquids or solids, or any other symptoms that are concerning to you Small, frequent meals. [place] diet. Remain well hydrated. Ondansetron as needed for nausea Follow up with primary care doctor Patient Language: Persian Prescriptions: No Action zolpidem [Ambien] 10 mg tablet 10 mg PO HS azathioprine 50 mg tablet 50 mg PO DAILY aspirin [Adult Aspirin Regimen] 81 mg tablet,delayed release (DR/EC) 81 mg PO DAILY omeprazole 20 mg capsule,delayed release(DR/EC) 20 mg PO DAILY atorvastatin 20 mg Tablet 20 mg PO DAILY cyanocobalamin (vitamin B-12) 500 mcg Tablet 1,000 mcg PO DAILY montelukast 10 mg Tablet 10 mg PO DAILY gabapentin 100 mg Capsule 100 mg PO TID epinephrine 0.3 mg/0.3 mL Auto-Injector 0.3 mg IM Q5-15M PRN (Reason: Anaphylaxis) Patient Comments: Hasn't taken in years Rx Instructions: do not exceed 3 doses per episode sertraline 50 mg Tablet 50 mg PO DAILY (DME) pen needle, diabetic [BD Ultra-Fine Mini Pen Needle] 31 gauge x 3/16 Needle MISCELLANEOUS fluticasone furoate-vilanterol [Breo Ellipta] 100-25 mcg/dose Blister With Device 1 inh INHALATION DAILY Rx Instructions: INHALE 1 PUFF BY MOUTH DAILY- RINSE MOUTH WITH WATER AFTER USE. DO NOT SWALLOW (DME) FreeStyle Lynda 14 Day Sensor Kit MISCELLANEOUS tramadol 50 mg Tablet 100 mg PO Q6H PRN (Reason: Pain) cholecalciferol (vitamin D3) [Vitamin D3] 50 mcg (2,000 unit) Tablet 50 mcg PO DAILY insulin glargine U-300 conc [Toujeo SoloStar U-300 Insulin] 300 unit/mL (1.5 mL) Insulin Pen 24 unit SUBCUT DAILY Rx Instructions: INJECT 28 UNITS UNDER SKIN ONCE DAILY. MAX OF 30 UNITS PER DAY prednisone 5 mg tablet 5 mg PO DAILY divalproex 500 mg tablet,delayed release (DR/EC) 500 mg PO TID alprazolam 0.5 mg tablet 0.5 mg PO TID PRN (Reason: Anxiety) timolol maleate 0.5 % drops 2 drp EACH EYE BID Envarsus XR 1 mg tablet extended release 24 hr 3 mg PO DAILY Rx Instructions: TAKE 3 1MG TABLETS BY MOUTH IN THE OIL GAS AND PIPE TESTER BEFORE BREAKFAST. carvedilol [Coreg] 6.25 mg tablet 6.25 mg PO DAILY Baqsimi 3 mg/actuation spray,non-aerosol 3 mg INTRANASAL PRN PRN (Reason: Hypoglycemia) fluticasone propionate 50 mcg/actuation [place],Suspension 2 spray INTRANASAL BID PRN (Reason: RHINITIS) Rx Instructions: administer 2 sprays into each nostril 2 times a day as needed for rhinits insulin lispro 100 unit/mL insulin pen, half-unit See Rx Instructions .ROUTE .COMPLEX Rx Instructions: 1:13 carb ratio with breakfast, 1:15 carb ratio with lunch and 1:13 carb ratio with supper plus sliding scale 1 unit for every 50 points greater than 150; MDD is 30 units furosemide [Lasix] 20 mg tablet 20 mg PO DAILY ondansetron 4 mg tablet,disintegrating 4 mg PO Q6H PRN (Reason: nausea and vomiting) Qty: 10 0RF oxycodone-acetaminophen 5-325 mg Tablet 1 tablet PO Q4H PRN (Reason: Pain Rated 7-10) Qty: 10 0RF Saccharomyces boulardii [Florastor] 250 mg Capsule 250 mg PO BID Qty: 14 0RF Zenpep 60,000-189,600- 252,600 unit capsule,delayed release(DR/EC) 1 cap PO .ac Qty: 300 4RF Rx Instructions: administer with meals and/or snacks mirtazapine 15 mg tablet See Rx Instructions .ROUTE .COMPLEX Qty: 90 1RF Dose Instruction: TAKE 1 TABLET BY MOUTH AT BEDTIME. Rx Instructions: TAKE 1 TABLET BY MOUTH AT BEDTIME. Follow-up/Referrals: Nga,Ramon Cedeno MD [Primary Care Provider]
[2025-06-05 14:32] LABS: Alanine Aminotransferase 22 U/L (6-35); Albumin Level 4.7 g/dL (3.5-5.1); Alkaline Phosphatase 57 U/L (38-126); Anion Gap 11 mmol/L (4-12); Aspartate Amino Transferase 30 U/L (14-36); Bilirubin,Total 1.0 mg/dL (0.2-1.3); Blood Urea Nitrogen 22 mg/dL (7-17); Calcium 10.3 mg/dL (8.4-10.2); Carbon Dioxide 29 mmol/L (22-30); Chloride 97 mmol/L (98-107); Estimated CRCL calculation 44 ml/min; Estimated Glomerular Filt Rate 55; Glucose 286 mg/dL (65-110); Lipase 12 U/L (23-300); Potassium 4.7 mmol/L (3.4-5.0); Sodium 137 mmol/L (137-145); Total Protein 9.2 g/dL (6.3-8.2)
[2025-06-05 14:45] VITALS: BP 170/112; PULSE 109; RESP 18; O2SAT 100
[2025-06-05 14:45] LABS: Magnesium 1.7 mg/dL (1.6-2.3)
[2025-06-05] MEDS: SODIUM CHLORIDE 0.9% IV 1,000 ML 999 ML IV CONT (14:46)
[2025-06-05] MEDS: METOCLOPRAMIDE HCL INJ 10 MG/2 ML VIAL IV PUSH (14:55)
[2025-06-05] MEDS: HYDROmorphone HCL INJ (*CRX) 1 MG/ML SYR 0.5 MG IV PUSH (14:57)
[2025-06-05] MEDS: FAMOTIDINE 20 MG/2 ML VIAL IV PUSH (14:59)
--- NOTE | 2025-06-05 15:05 | PC.NURSE ---
Lab called to add on betahydroxybuterate. Pt. had medium sized BM, brown and soft. Dirty depend removed. Pt. cleaned with soap and water. Clean depend applied.
--- NOTE | 2025-06-05 15:20 | PC.NURSE ---
Pt. to ct
[2025-06-05 15:22] LABS: BEDSIDEPREGUCG Negative (Negative)
[2025-06-05 15:29] LABS: Add Urine Microscopic? YES; Appearance Urine Cloudy (Clear); Glucose Urine UA 1+ mg/dL (Negative); Leukocyte Esterase Ur Negative LEU/UL (Negative); Nitrate Urine Negative (Negative); Non Pathogenic Casts 0-2; Specific Grav Ur 1.015 (1.001-1.035)
--- NOTE | 2025-06-05 15:57 | PC.NURSE ---
Lab called again to add on betaydroxybutric acid. energy and conservation technician supposed to call this RN back if there are any issues
--- NOTE | 2025-06-05 16:00 | PC.NURSE ---
Pt. requesting addition antiemetic and additional medication for continued 10/10 abdominal pain. MANUELITO Zhong notified.
--- NOTE | 2025-06-05 16:09 | PC.NURSE ---
Pt. assisted with using the bed bowles to urinate. Rosario care performed with soap and water. Clean depend applied.
[2025-06-05 16:12] VITALS: BP 170/94; PULSE 106; RESP 18; O2SAT 100
[2025-06-05 16:45] VITALS: BP 148/85; PULSE 107; RESP 16; O2SAT 100
[2025-06-05] MEDS: diazePAM INJ (*CRX) 10 MG/2 ML SYRINGE 5 MG IV PUSH (16:52)
[2025-06-05] MEDS: LACTATED RINGERS 1,000 ML 999 ML IV CONT (17:41)
--- NOTE | 2025-06-05 18:14 | PC.NURSE ---
Pt. peripheral IV infiltrated. IV removed. Fluids paused. No current vascular access on staff. Pt. has no IV access at this time. BOBO Acharya and provider, MANUELITO Zhong notified of delay.
[2025-06-05 18:20] VITALS: BP 117/67; PULSE 102; RESP 14; O2SAT 96
--- NOTE | 2025-06-05 18:47 | PC.NURSE ---
Pt. brought to bathroom via WC. Pt. able to ambulate independently into bathroom. Pt. denies any current nausea.
--- NOTE | 2025-06-05 19:12 | PC.NURSE ---
Pt. refused ordered GI cocktail. Pt. states I don't think I really need to be here. Pt. educated on why she needs to be admitted by MANUELITO Zhong at bedside. Pt. understood education but still wants to sign out AMA. Pt. signed AMA paperwork. Pt. to home with .
[2025-06-05 19:16] VITALS: BP 122/79
== END 2025-06-05 19:15 | disposition left against medical advice (07) ==
PROVIDERS: Emergency Medicine; Emergency Provider Physician Assistant; PCP Internal Medicine
DX: R10.9 Unspecified abdominal pain (principal); Z79.82 Long term (current) use of aspirin; Z79.4 Long term (current) use of insulin; I10 Essential (primary) hypertension; E10.42 Type 1 diabetes mellitus with diabetic polyneuropathy; J44.9 Chronic obstructive pulmonary disease, unspecified; Z87.891 Personal history of nicotine dependence; Z53.29 Procedure and treatment not carried out because of patient's decision for other reasons
CPT/HCPCS: 36415; 74177; 80053; 81001; 81025; 82948; 83605; 83690; 83735; 84100; 85025; 96361; 96374; 96375; 99284; A9270; J1171; J1200; J2765; J3360; J7030; J7120; Q9967